=== PATIENT | male | born 1965 | race Caucasian/White ===

== ENCOUNTER 2016-09-13 23:27 | Emergency (ER) | payer OTHER ==
[~2016-09-13] VITALS: Ht 182.9 cm; Wt 74.4 kg
[~2016-09-13 23:27] MED LIST: AMLO5TAB2 PO; ASPI81TA9 PO; ATOR20TA PO; Aspirin PO; CHOL20004 PO; CYAN100072 PO; DULO60CA44 PO; HYDR-2678 PO; ICOS1CAP PO; INSU100I13 SQ; INSU100I15 SQ; INSU100I17 SQ; Isosorbide Mononitrate PO; LEVE500T6 PO; LISI-334 PO; LISI10TA2 PO; LOSA100T6 PO; LOSA1TAB17 PO; METF-620 PO; METO50TA10 PO; MIRT45TA3 PO; Metoprolol Tartrate PO; OMEP1CAP24 PO; PREG225C PO; TOPI100T90 PO; TOPI200T6 PO; Toujeo SQ; iron
--- NOTE | 2016-09-13 23:29 | PHYS DOC ---
Past Medical History Past Medical History: Diabetes-Type II, Hypertension, [place], Seizure Past Surgical History: No Surgical History Alcohol Use: None Drug Use: None Adult General Chief Complaint Chief Complaint: ALTERED MENTAL STATUS [facility] HPI Patient is a 50 year old male presenting to the emergency department for evaluation of altered mental status. Reportedly family was trying to arouse him for one hour straight and cannot get him to wake up so they called EMS. Patient has a history of seizures and says that he has been compliant with his medications. He is somewhat sleepy but he is awake and interactive and will answer all questions appropriately. He denies any pain recent medication changes fevers chills nausea vomiting or other systemic symptoms. Reportedly patient had a diabetic emergency and required admission to the ICU but EMS and his [id number] blood sugar was 230. Patient moves all extremities appropriately and is in no obvious distress with normal vital signs. Review of Systems Review of Systems Constitutional: Denies fever or chills [] Eyes: Denies change in visual acuity, redness, or eye pain [] HENT: Denies nasal congestion or sore throat [] Respiratory: Denies cough or shortness of breath [] Cardiovascular: No additional information not addressed in HPI [] GI: Denies abdominal pain, nausea, vomiting, bloody stools or diarrhea [] : Denies dysuria or hematuria [] Musculoskeletal: Denies back pain or joint pain [] Integument: Denies rash or skin lesions [] Neurologic: Denies headache, focal weakness or sensory changes [] Current Medications Current Medications Current Medications Medications (Trade) Dose Ordered Sig/Babak Start Time Stop Time Status Last Admin Dose Admin Amlodipine Besylate (Norvasc) 10 mg 1X ONCE 09/14/16 01:00 09/14/16 01:01 DC 09/14/16 00:41 10 MG Labetalol HCl 15 mg 15 mg 1X ONCE 09/14/16 01:00 09/14/16 01:01 DC 09/14/16 00:41 15 MG Levetiracetam/ Sodium Chloride (Keppra/Iv Sodium Chloride 0.9% 100ml) 105 ml @ 400 mls/hr 1X ONCE 09/14/16 01:00 09/14/16 01:15 DC 09/14/16 00:40 400 MLS/HR Sodium Chloride (Iv Sodium Chloride 0.9% 1000ml Bag) 1,000 ml @ 1,000 mls/hr 1X ONCE 09/14/16 00:00 09/14/16 00:59 DC 09/13/16 23:55 1,000 MLS/HR Allergies Allergies Allergies Coded Allergies Type Severity Reaction Last Updated Verified No Known Drug Allergies 01/23/14 No Physical Exam Physical Exam Constitutional: Well developed, well nourished, no acute distress, non-toxic appearance. [] HENT: Normocephalic, atraumatic, bilateral external ears normal, oropharynx moist, no oral exudates, nose normal. [] Eyes: PERRLA, EOMI, conjunctiva normal, no discharge. [] Neck: Normal range of motion, no tenderness, supple, no stridor. [] Cardiovascular:Heart rate regular rhythm, no murmur [] Lungs & Thorax: Bilateral breath sounds clear to auscultation [] Abdomen: Bowel sounds normal, soft, no tenderness, no masses, no pulsatile masses. [] Skin: Warm, dry, no erythema, no rash. [] Back: No tenderness, no CVA tenderness. [] Extremities: No tenderness, no cyanosis, no clubbing, ROM intact, no edema. [] Neurologic: Alert and oriented X 3, normal motor function, normal sensory function, no focal deficits noted. [] Current Patient Data Vital Signs Vital Signs Date Time Temp Pulse Resp B/P Pulse Ox O2 Delivery O2 Flow Rate FiO2 09/14/16 00:48 92 16 162/77 99 Room Air 09/13/16 23:33 97.4 97.4 Lab Values Laboratory Tests Test 09/13/16 23:32 White Blood Count 7.8x10^3/uL (4.0-11.0) Red Blood Count 3.23x10^6/uL (4.30-5.70) L Hemoglobin 9.3g/dL (13.0-17.5) L Hematocrit 27.9% (39.0-53.0) L Mean Corpuscular Volume 86fL (79-100) Mean Corpuscular Hemoglobin 29pg (25-35) Mean Corpuscular Hemoglobin Concent 34g/dL (31-37) Red Cell Distribution Width 15.6% (11.5-14.5) H Platelet Count 196x10^3/uL (140-400) Neutrophils (%) (Auto) 53% (31-73) Lymphocytes (%) (Auto) 32% (24-48) Monocytes (%) (Auto) 5% (0-9) Eosinophils (%) (Auto) 9% (0-3) H Basophils (%) (Auto) 1% (0-3) Neutrophils # (Auto) 4.2x10^3uL (1.8-7.7) Lymphocytes # (Auto) 2.5x10^3/uL (1.0-4.8) Monocytes # (Auto) 0.4x10^3/uL (0.0-1.1) Eosinophils # (Auto) 0.7x10^3/uL (0.0-0.7) Basophils # (Auto) 0.1x10^3/uL (0.0-0.2) Sodium Level 145mmol/L (136-145) Potassium Level 3.8mmol/L (3.5-5.1) Chloride Level 111mmol/L (98-107) H Carbon Dioxide Level 28mmol/L (21-32) Anion Gap 6 (6-14) Blood Urea Nitrogen 25mg/dL (8-26) Creatinine 1.5mg/dL (0.7-1.3) H Estimated GFR (Cockcroft-Gault) 49.7 BUN/Creatinine Ratio 17 (6-20) Glucose Level 177mg/dL (70-99) H Calcium Level 8.8mg/dL (8.5-10.1) Magnesium Level 1.9mg/dL (1.8-2.4) Total Bilirubin 0.2mg/dL (0.2-1.0) Aspartate Amino Transferase (AST) 13U/L (15-37) L Alanine Aminotransferase (ALT) 15U/L (16-63) L Alkaline Phosphatase 68U/L (46-116) Total Protein 6.6g/dL (6.4-8.2) Albumin 2.9g/dL (3.4-5.0) L Albumin/Globulin Ratio 0.8 (1.0-1.7) L Lipase 46U/L (73-393) L Salicylates Level 3.4mg/dL (2.8-20.0) Salicylate Last Dose Date Unknown Salicylate Last Dose Time Unknown Acetaminophen Level < 2mcg/ml (10-30) L Acetaminophen Last Dose Date Unknown Acetaminophen Last Dose Time Unknown Ethyl Alcohol Level < 10mg/dL (0-10) Laboratory Tests 09/13/16 23:32 Laboratory Tests 09/13/16 23:32 EKG EKG Normal sinus rhythm at 81 beats per minutes with normal axis and no obvious ST elevation or depression and normal T waves. Radiology/Procedures Radiology/Procedures PROCEDURE CT head without contrast. HISTORY Acute mental status change and hypertension TECHNIQUE Noncontrast axial cross sectional CT scanning of the head was performed. COMPARISON August 25, 2016 FINDINGS No acute intracranial hemorrhage or midline shift or mass-effect or hydrocephalus or extra-axial fluid collection is seen. No focal hypodense area is seen to indicate an acute infarct or edema radiographically. No skull fracture or pneumocephalus is seen. No opacification of the mastoid sinuses or the paranasal sinuses is seen. The maxillary sinuses are not completely seen in this study. IMPRESSION No acute intracranial abnormality is seen. Electronically signed by: Presley Simons MD (September 14, 2016 00:00:20) DICTATED and SIGNED BY: PRESLEY SIMONS III, MD DATE: 09/14/16 0001 Course & Med Decision Making Course & Med Decision Making CT is normal and labs are mostly unremarkable. He has baseline anemia and questionably some dehydration with increased creatinine and BUN. Family came and said that he was shaking prior to his confusion so I do think that he had a seizure and had a post ictal period. He says that he has not taken his evening meds to this point so I will give him a dose of IV Keppra in addition to his blood pressure medications and then if he continues to be normal will likely go home. Patient has repeat normal neurologic exam and says he feels fine and was to go home. He will be discharged with instructions to follow with his neurologist and come back to the ER sooner with any worsening pain confusion weakness or additional concerns. Patient and family aware and agreeable with plan for discharge and verbalized understanding of the need for short-term follow-up and strict ER return precautions discussed as above. Dragon Disclaimer Dragon Disclaimer This electronic medical record was generated, in whole or in part, using a voice recognition dictation system. Departure Departure Impression: Primary Impression: Seizure disorder Additional Impressions: Encephalopathy acute Anemia Disposition: 01 HOME, SELF-CARE Condition: GOOD Referrals: KESHAWN DE JESUS MD (PCP) Patient Instructions: Seizure Disorder, Child, Generalized Tonic-Clonic Additional Instructions: FOLLOW WITH YOUR NEUROLOGIST. KEEP TAKING YOUR MEDS PRESCRIBED. COME BACK TO THE ED SOONER WITH ANY NEW OR WORSENING SYMPTOMS. THANK YOU! Problem Qualifiers ALAN LANDIS DO September 13, 2016 23:29
[2016-09-13 23:50] LABS: BASO # 0.1 x10^3/uL (0.0-0.2); BASO % 1 % (0-3); EOS % 9 % (0-3); HEMATOCRIT 27.9 % (39.0-53.0); HEMOGLOBIN 9.3 g/dL (13.0-17.5); LYMPH # 2.5 x10^3/uL (1.0-4.8); LYMPH % 32 % (24-48); MEAN CORPUSCULAR HEMOGLOBIN 29 pg (25-35); MEAN CORPUSCULAR HGB CONC 34 g/dL (31-37); MEAN CORPUSCULAR VOLUME 86 fL (79-100); MONO % 5 % (0-9); NEUT % 53 % (31-73); PLATELET COUNT 196 x10^3/uL (140-400); RED BLOOD COUNT 3.23 x10^6/uL (4.30-5.70); RED CELL DISTRIBUTION WIDTH 15.6 % (11.5-14.5); WHITE BLOOD COUNT 7.8 x10^3/uL (4.0-11.0)
[2016-09-13 23:59] LABS: CALCIUM 8.8 mg/dL (8.5-10.1); CREATININE 1.5 mg/dL (0.7-1.3); GFR 49.7; POTASSIUM 3.8 mmol/L (3.5-5.1)
[2016-09-14] MEDS ORDERED: IV NORMAL SALINE 1000ML BAG 1,000 ML IV ONE
[2016-09-14 00:03] LABS: ETHANOL < 10 mg/dL (0-10)
--- NOTE | 2016-09-14 00:03 | RAD ---
PROCEDURE CT head without contrast. HISTORY Acute mental status change and hypertension TECHNIQUE Noncontrast axial cross sectional CT scanning of the head was performed. COMPARISON August 25, 2016 FINDINGS No acute intracranial hemorrhage or midline shift or mass-effect or hydrocephalus or extra-axial fluid collection is seen. No focal hypodense area is seen to indicate an acute infarct or edema radiographically. No skull fracture or pneumocephalus is seen. No opacification of the mastoid sinuses or the paranasal sinuses is seen. The maxillary sinuses are not completely seen in this study. IMPRESSION No acute intracranial abnormality is seen. Electronically signed by: Logan Simons MD (September 14, 2016 00:00:20)
[2016-09-14 00:05] LABS: ALBUMIN 2.9 g/dL (3.4-5.0); ALBUMIN/GLOBULIN RATIO 0.8 (1.0-1.7); MAGNESIUM 1.9 mg/dL (1.8-2.4); TOTAL BILIRUBIN 0.2 mg/dL (0.2-1.0); TOTAL PROTEIN 6.6 g/dL (6.4-8.2)
[2016-09-14 00:48] VITALS: BP 162/77
[2016-09-14] MEDS ORDERED: amLODIPine BESYLATE 5 MG TABLET PO ONE (01:00)
[2016-09-14] MEDS ORDERED: LABETALOL 20 MG/4 ML DISP.SYRIN. IVP ONE (01:00)
[2016-09-14] MEDS ORDERED: LEVETIRACETAM 500 MG in IV NORMAL SALINE 100ML 100 ML IV ONE (01:00)
--- NOTE | 2016-09-14 06:52 | EKG ---
[facility] [address] [place] [address] Test Date: 2016-09-13 Test Time: 23:34:07 Pat Name: FER ABAD Department: Room: Gender: M [employer]: : 1965 Requested By: ALAN LANDIS Order Number: [id number] Reading MD: Krystyna Almonte Measurements Intervals [place] Rate: 81 P: 45 ND: 180 QRS: 22 QRSD: 90 T: 90 QT: 384 QTc: 452 Interpretive Statements SINUS RHYTHM NORMAL ECG Electronically Signed On 09-14-2016 20:47:29 CDT by Krystyna Almonte
== END 2016-09-14 01:23 | disposition home or self-care (01) ==
LOC: ER 23:27
DX: G40.909 Epilepsy, unspecified, not intractable, without status epilepticus (principal); G93.40 Encephalopathy, unspecified; D64.9 Anemia, unspecified; R41.82 Altered mental status, unspecified; I10 Essential (primary) hypertension; E11.9 Type 2 diabetes mellitus without complications; I25.2 Old myocardial infarction
CPT/HCPCS: 36415; 70450; 80053; 80177; 80320; 83690; 83735; 85027; 93005; 96360; 96365; 96375; 99285; G6038; J1953; J3490; J7030; G0480; 80196

== ENCOUNTER → 2016-10-07 | Outpatient (CLI) | payer OTHER ==
[2016-09-14 00:48] VITALS: BP 162/77
[~2016-10-07] MED LIST changes: +ASPI-612 PO; -ASPI81TA9 PO; -CHOL20004 PO; +CHOL200074 PO; +TOPI100T8 PO; -TOPI100T90 PO
--- NOTE | 2016-10-07 12:12 | FMS ---
Indication 2 views of both shoulders were obtained. Note is made of a prior plain film examination of the right shoulder 03/30/2015. On the right there is some minimal degenerative change at the AC joint similar to the previous exam. No acute bony finding is seen. On the left there is, similarly, minimal degenerative change at the AC joint. No additional finding is apparent. IMPRESSION: Minimal degenerative change at the AC joints.
== END ==
LOC: FMSRAD 11:18
PROVIDERS: ATTEND Nurse Practitioner Occupational Health

== ENCOUNTER → 2017-04-25 | Outpatient (CLI) | payer OTHER ==
[~2017-04-25] MED LIST changes: -LOSA1TAB17 PO; +LOSA1TAB22 PO; -METO50TA10 PO; +METO50TA29 PO
[2017-04-25 13:18] LABS: BASO # 0.1 x10^3/uL (0.0-0.2); BASO % 1 % (0-3); EOS % 12 % (0-3); HEMATOCRIT 36.9 % (39.0-53.0); HEMOGLOBIN 11.6 g/dL (13.0-17.5); LYMPH # 2.6 x10^3/uL (1.0-4.8); LYMPH % 30 % (24-48); MEAN CORPUSCULAR HEMOGLOBIN 27 pg (25-35); MEAN CORPUSCULAR HGB CONC 32 g/dL (31-37); MEAN CORPUSCULAR VOLUME 87 fL (79-100); MONO % 6 % (0-9); NEUT % 51 % (31-73); PLATELET COUNT 165 x10^3/uL (140-400); RED BLOOD COUNT 4.23 x10^6/uL (4.30-5.70); RED CELL DISTRIBUTION WIDTH 16.4 % (11.5-14.5); WHITE BLOOD COUNT 8.7 x10^3/uL (4.0-11.0)
[2017-04-25 13:32] LABS: ALBUMIN 3.3 g/dL (3.4-5.0); ALBUMIN/GLOBULIN RATIO 0.8 (1.0-1.7); CALCIUM 8.9 mg/dL (8.5-10.1); GFR 35.5; POTASSIUM 3.4 mmol/L (3.5-5.1); TOTAL BILIRUBIN 0.3 mg/dL (0.2-1.0); TOTAL PROTEIN 7.3 g/dL (6.4-8.2)
[2017-04-25 13:35] LABS: BARBITURATES NEG (NEG); BENZODIAZEPINES NEG (NEG); CANNABINOIDS POS (NEG); COCAINE NEG (NEG); METHADONE NEG (NEG); OPIATES POS (NEG); PHENCYCLIDINE NEG (NEG)
== END | disposition home or self-care (01) ==
LOC: LAB 12:51
PROVIDERS: ATTEND Psychiatry & Neurology Neurology
DX: R56.9 Unspecified convulsions (principal)
CPT/HCPCS: 36415; 80053; 80177; 80307; 82550; 82607; 84443; 85025; G0479

== ENCOUNTER → 2017-05-04 | Outpatient (CLI) | payer OTHER ==
--- NOTE | 2017-05-04 12:58 | EEG ---
DATE OF SERVICE: 05/04/2017 EEG NUMBER: [id number]. OBJECTIVE: This is a 51-year-old male patient with history of seizure or seizure-like episodes. EEG was requested to evaluate seizure activity. METHODS: Twenty electrodes were applied according to the international 10-20 electrode placement system. EKG monitoring, hyperventilation, intermittent photic stimulation, monopolar and bipolar montages are routinely utilized. The record was obtained on a digital system with video monitoring. FINDINGS: 1. Background: The patient was recorded in the awake and drowsy states. No sleep state was recorded. The overall background amplitude is 5-15 microvolts. A posterior dominant rhythm of 8-9 Hz is observed. 2. Abnormalities: No specific epileptiform discharge or electrographic seizure is seen. No focal or diffuse slowing. 3. Activation: Hyperventilation was performed with good efforts and normal response. Intermittent photic stimulation was performed with photic driving. No specific epileptiform discharge or electrographic seizure induced. IMPRESSION: This EEG is a normal study for the awake and drowsy states. No sleep state was recorded. No focal, lateralizing, specific epileptiform discharge, or electrographic seizure is seen. However, a normal EEG does not rule out seizure. MING VILLAREAL MD DR: BAYRON/alma delia JOB#: [id number] / [id number] PADMAJA
== END | disposition home or self-care (01) ==
LOC: RT 08:04
PROVIDERS: ATTEND Psychiatry & Neurology Neurology
DX: R56.9 Unspecified convulsions (principal)
CPT/HCPCS: 95816

== ENCOUNTER → 2017-06-27 | Outpatient (CLI) | payer OTHER ==
[2017-06-27 12:52] LABS: BARBITURATES NEG (NEG); BENZODIAZEPINES NEG (NEG); CANNABINOIDS POS (NEG); COCAINE NEG (NEG); METHADONE NEG (NEG); OPIATES POS (NEG); PHENCYCLIDINE NEG (NEG)
[2017-06-27 12:56] LABS: AMPHETAMINE/METHAMPHETAMINE NEG (NEG); ETHANOL, URINE NEG (NEG)
[2017-06-27 13:19] LABS: CREATINE KINASE 123 U/L (39-308)
== END | disposition home or self-care (01) ==
LOC: LAB 12:18
DX: F12.90 Cannabis use, unspecified, uncomplicated (principal); Z79.899 Other long term (current) drug therapy
CPT/HCPCS: 36415; 80307; 82550

== ENCOUNTER → 2017-07-03 | Outpatient (CLI) | payer OTHER | END | disposition home or self-care (01) | LOC: SLPLAB 05:47 | DX: R56.9 Unspecified convulsions (principal) | CPT/HCPCS: 95951 ==

== ENCOUNTER → 2017-09-18 | Outpatient (CLI) | payer SELFPAY, OTHER ==
[2017-09-18 12:05] LABS: ALBUMIN 2.6 g/dL (3.4-5.0); ALBUMIN/GLOBULIN RATIO 0.7 (1.0-1.7); ALK PHOS 84 U/L (46-116); ALT (SGPT) 20 U/L (16-63); ANION GAP 8 (6-14); AST (SGOT) 18 U/L (15-37); BLOOD UREA NITROGEN 52 mg/dL (8-26); BUN/CREATININE RATIO 22 (6-20); CALCIUM 8.5 mg/dL (8.5-10.1); CARBON DIOXIDE 30 mmol/L (21-32); CHLORIDE 106 mmol/L (98-107); CREATININE 2.4 mg/dL (0.7-1.3); GFR 28.8; GLUCOSE 226 mg/dL (70-99); POTASSIUM 4.2 mmol/L (3.5-5.1); SODIUM 144 mmol/L (136-145); TOTAL BILIRUBIN 0.3 mg/dL (0.2-1.0); TOTAL PROTEIN 6.5 g/dL (6.4-8.2)
== END | disposition home or self-care (01) ==
LOC: LAB 10:52
DX: N17.9 Acute kidney failure, unspecified (principal)
CPT/HCPCS: 36415; 80053

== ENCOUNTER 2021-05-26 01:11 | Inpatient (IN) | payer MEDICARE ==
[2021-05-26] VITALS (7 sets, daily range): BP systolic 85–124; BP diastolic 46–66
[~2021-05-26] VITALS: Ht 177.8 cm; Wt 71.9 kg
[~2021-05-26 01:11] MED LIST changes: +AMLO-186 PO; -AMLO5TAB2 PO; +ASPI-482 PO; -ASPI-612 PO; +ASPI-886 PO; +ATOR10TA60 PO; +CHOL100013 PO; +CYAN-25 PO; -DULO60CA44 PO; +DULO60CA45 PO; +DULO60CA7 PO; +EZET10TA20 PO; +HYDR-2761 PO; +INSU100V13 SQ; +INSU3INS SQ; +LEVE500T56 PO; -LISI-334 PO; +LISI10TA16 PO; -LISI10TA2 PO; +LISI20TA18 PO; +LOSA100T14 PO; -LOSA100T6 PO; -METF-620 PO; +METF10007 PO; +METO-239 PO; +MIRT-8 PO; -MIRT45TA3 PO; +MIRT45TA58 PO; -OMEP1CAP24 PO; +OMEP1CAP32 PO; +OMEP40CA7 PO; +OXYC10TA46 PO; +PREG200C PO; +PROM25TA10 PO; +SILD20TA4 PO; +TRAZ-118 PO
[2021-05-26] MEDS ORDERED: PIP/TAZO PER PHARMACY MC PRN (01:30)
[2021-05-26] MEDS ORDERED: IV NORMAL SALINE 1000ML BAG 1,000 ML IV ONE (01:30)
--- NOTE | 2021-05-26 01:30 | PHYS DOC ---
Past Medical History Past Medical History: Depression, Diabetes-Type II, Heart Disease, Hypert ension, [place], Migraines, Seizure Past Medical History Chronic kidney disease Past Surgical History: No Surgical History, Coronary Bypass Surgery Past Surgical History Partial left foot amputation, dialysis fistula placement, port placement Smoking Status: Current Every Day Smoker Alcohol Use: None Drug Use: None Social History Social history limited due to patients altered mental status General Adult EDM: Chief Complaint: Altered mental status HPI: HPI: Mr. Cano is a 55 year old male brought in by EMS from a long term d/t altered mental status. [facility] states that the patient was altered, had a fever of 100.5 and BP of 87/45. History of present illness limited due to patients altered mental status Review of Systems: Review of Systems: Constitutional: complains of fever and chills Respiratory: reports shortness of breath, denies cough Cardiovascular: Denies chest pain or palpitations GI: complains of nausea, denies abdominal pain Integument: healing left foot stump, widespread erythema Review of systems limited due to patients altered mental status Heart Score: C/O Chest Pain: N/A Allergies: Allergies: Allergies Coded Allergies Type Severity Reaction Last Updated Verified No Known Drug Allergies 01/23/14 No Physical Exam: PE: Constitutional: patient appears fatigued, altered HENT: Normocephalic, bruise / abrasion over left eye Eyes:, conjunctiva pale, no discharge Neck: Normal range of motion, no tenderness Lungs & Thorax: No respiratory distress, equal chest rise and fall, CTAB Cardiac: HRRR, systolic murmur w/ no radiation Abdomen: Soft, no tenderness Skin: Warm, dry, diffuse erythema on lower legs Extremities: , UE ROM & strength intact, patient is non-weight bearing, healing left partial foot stump Neurologic: Alert and oriented X 3 confused, GCS 14 Psychologic: Affect normal, judgment normal EKG: EKG: @0543 NSR at 83bpm, NO ST elevation, QRS 98ms, QT/QTc 434/511ms Radiology/Procedures: Radiology/Procedures: CT HEAD AND C-SPINE WO History: Reason: altered mental status / Spl. Instructions: / History: . Pain Comparison: September 13, 2016 Technique: Noncontrast CT imaging was performed of the head and cervical spine. Coronal and sagittal reconstructions were performed. Exposure: One or more of the following individualized dose reduction techniques were utilized for this examination: 1. Automated exposure control 2. Adjustment of the mA and/or kV according to patient size 3. Use of iterative reconstruction technique. Findings: Head CT: No intracranial hemorrhage. No mass effect. No hydrocephalus. Left posterior parietal encephalomalacia likely related to prior infarct. Chronic right basal ganglia lacunar infarct. Ex vacuo dilatation of the right lateral ventricle. Mild foci of decreased attenuation within the hemispheric white matter, most often due to chronic microvascular ischemia. Imaged orbits are unremarkable. Imaged paranasal sinuses and mastoid air cells are clear. No acute calvarial fracture. Cervical spine CT: Normal vertebral body height and alignment. No fracture. Moderate C5-C6 degenerative disc changes. Mild apical septal thickening. Secretions within the upper trachea. Multifocal carious dentition and periodontal disease. Impression: Head CT: 1. No acute intracranial abnormality. 2. Chronic right basal ganglia and left parietal infarcts. Cervical spine CT: 1. No acute fracture or subluxation of the cervical spine. 2. Multilevel cervical spondylosis most prominent C5-C6. 3. Biapical septal thickening, may indicate mild pulmonary edema. Electronically signed by: Luis Manuel Flores DO (05/26/2021 2:44 AM) [employer] [] PROCEDURE: FOOT LEFT 3V XR FOOT_LEFT 3 VIEWS History: Reason: fever, toe amputation, eval for osteomyelitis / Spl. Instructions: / History: Technique: 3 views left foot Comparison: None. Findings: Prior left forefoot amputation to the level of the metatarsals. Irregularity of the skin overlying the amputation. Possible small subcutaneous gas within this region along the plantar aspect on lateral view. No radiographic evidence of osteomyelitis. No dislocation. Plantar calcaneal spur. Impression: 1. Prior left forefoot amputation. 2. Irregularity of the skin overlying the amputation with potential payne bcutaneous gas. Recommend correlation for ulcer or necrotizing infection. Electronically signed by: Luis Manuel Flores DO (05/26/2021 2:47 AM) [email or web address] PROCEDURE: CHEST AP ONLY XR CHEST 1V History: Reason: fever, altered mental status / Spl. Instructions: / History: Comparison: September 13, 2017 Findings: Moderate diffuse interstitial thickening with ill-defined opacities. No pleural effusion. Enlarged cardiac size. Right IJ central line with tip projecting over the right atrium. Prior median sternotomy. No pneumothorax. Impression: 1. Moderate diffuse interstitial thickening with ill-defined opacities, may represent pulmonary edema. Electronically signed by: Luis Manuel Flores DO (05/26/2021 2:45 AM) [facility] Course & Med Decision Making: Course & Med Decision Making Pertinent Labs and Imaging studies reviewed. (See chart for details) Mr. Cano was brought in by EMS from the long term due to his altered mental status alongside fever and shortness of breath. Fluids and antibiotics started, wound care consulted, admit to medicine. Patient requiring admission for further evaluation and treatment. Discussed with Dr. Fabian (hospitalist) who is in agreement with admission. Discussed findings and plan with patient, who acknowledges understanding and agreement. COVID-19 CRITERIA: The patient was evaluated during the global COVID-19 pandemic, and that diagnosis was suspected/considered upon their initial presentation. Their evaluation, treatment and testing was consistent with current guidelines for patients who present with complaints or symptoms that may be related to COVID-19. Dragon Disclaimer: Dragon Disclaimer: This electronic medical record was generated, in whole or in part, using a voice recognition dictation system. Departure Departure Impression: Primary Impression: Altered mental status Qualified Codes: R41.82 - Altered mental status, unspecified Additional Impressions: Severe anemia ESRD (end stage renal disease) on dialysis Draining postoperative wound Qualified Codes: T81.89XA - Other complications of procedures, not elsewhere classified, initial encounter COVID-19 Disposition: ADMITTED INPATIENT Admitting Physician: Madi. Doe Condition: GUARDED Referrals: KAHLIL WADE MD (PCP) COVID-19 Assessment: COVID-19 Patient Risks: Age 65 or older: No Sign of co-morbidity: Yes Exp to person + for COVID: No Exp to PUI: No Travel from affected area: No Lower respiratory symptoms: No Fever: No Other: Yes PPE Use: Full PPE with N95 mask or PAPR: Yes VIJAYA BRIAN DO May 26, 2021 01:30
[2021-05-26 01:40] LABS: BASO % 0 % (0-3); EOS # 0.1 x10^3/uL (0.0-0.7); EOS % 2 % (0-3); LYMPH # 1.7 x10^3/uL (1.0-4.8); LYMPH % 23 % (24-48); MEAN CORPUSCULAR HEMOGLOBIN 27 pg (25-35); MEAN CORPUSCULAR HGB CONC 32 g/dL (31-37); MEAN CORPUSCULAR VOLUME 82 fL (79-100); MONO # 1.3 x10^3/uL (0.0-1.1); MONO % 18 % (0-9); NEUT # 4.2 x10^3/uL (1.8-7.7); NEUT % 57 % (31-73); PLATELET COUNT 107 x10^3/uL (140-400); RED BLOOD COUNT 2.26 x10^6/uL (4.30-5.70); RED CELL DISTRIBUTION WIDTH 24.4 % (11.5-14.5); WHITE BLOOD COUNT 7.3 x10^3/uL (4.0-11.0)
[2021-05-26 01:44] LABS: HEMATOCRIT 18.6 % (39.0-53.0)
[2021-05-26 01:48] LABS: PROTHROMBIN TIME PATIENT 15.6 SEC (11.7-14.0)
[2021-05-26 01:53] LABS: CALCIUM 8.1 mg/dL (8.5-10.1); CREATININE 5.8 mg/dL (0.7-1.3); GFR 10.2; POTASSIUM 3.3 mmol/L (3.5-5.1)
[2021-05-26 01:58] LABS: ALBUMIN 2.3 g/dL (3.4-5.0); ALBUMIN/GLOBULIN RATIO 0.5 (1.0-1.7); C-REACTIVE PROTEIN 149.6 mg/L (0-3.3); MAGNESIUM 1.9 mg/dL (1.8-2.4); TOTAL BILIRUBIN 0.8 mg/dL (0.2-1.0); TOTAL PROTEIN 7.1 g/dL (6.4-8.2)
[2021-05-26 02:10] LABS: % BASOS 1 % (0-3); % EOS 2 % (0-5); % LYMPHS 26 % (24-48); % MONOS 9 % (0-10); % SEGS 62 % (35-66); ANISOCYTOSIS MOD; HYPOCHROMIA SLIGHT; NUCLEATED RBC 2; PLT ESTIMATE DECREASED (ADEQUATE); POLYCHROMASIA SLIGHT
[2021-05-26 02:11] LABS: HELMET CELLS OCC; OVALOCYTES OCC; POIKILOCYTOSIS SLIGHT
[2021-05-26] MEDS ORDERED: PIPERACILLIN/TAZOBACTAM 3.375 GM in IV NORMAL SALINE 50ML 50 ML IV ONE (02:15)
--- NOTE | 2021-05-26 02:47 | RAD ---
CT HEAD AND C-SPINE WO History: Reason: altered mental status / Spl. Instructions: / History: . Pain Comparison: September 13, 2016 Technique: Noncontrast CT imaging was performed of the head and cervical spine. Coronal and sagittal reconstructions were performed. Exposure: One or more of the following individualized dose reduction techniques were utilized for thi s examination: 1. Automated exposure control 2. Adjustment of the mA and/or kV according to patient size 3. Use of iterative reconstruction technique. Findings: Head CT: No intracranial hemorrhage. No mass effect. No hydrocephalus. Left posterior parietal encephalomalacia likely related to prior infarct. Chronic right basal ganglia lacunar infarct. Ex vacuo dilatation of the right lateral ventricle. Mild foci of decreased attenuation within the hemispheric white matter, most often due to chronic cheyanne rovascular ischemia. Imaged orbits are unremarkable. Imaged paranasal sinuses and mastoid air cells are clear. No acute ca lvarial fracture. Cervical spine CT: Normal vertebral body height and alignment. No fracture. Moderate C5-C6 degenerative disc changes. Mild apical septal thickening. Secretions within the upper trachea. Multifocal carious dentition and periodontal disease. Impression: Head CT: 1. No acute intracranial abnormality. 2. Chronic right basal ganglia and left parietal infarcts. Cervical spine CT: 1. No acute fracture or subluxation of the cervical spine. 2. Multilevel cervical spondylosis most prominent C5-C6. 3. Biapical septal thickening, may indicate mild pulmonary edema. Electronically signed by: Luis Manuel Flores DO (05/26/2021 2:44 AM) [facility]
--- NOTE | 2021-05-26 02:48 | RAD ---
XR CHEST 1V History: Reason: fever, altered mental status / Spl. Instructions: / History: Comparison: September 13, 2017 Findings: Moderate diffuse interstitial thickening with ill-defined opacities. No pleural effusion. Enlarged ca rdiac size. Right IJ central line with tip projecting over the right atrium. Prior median sternotomy. No pneumothorax. Impression: 1. Moderate diffuse interstitial thickening with ill-defined opacities, may represent pulmonary malvin a. Electronically signed by: Luis Manuel Flores DO (05/26/2021 2:45 AM) [facility]
--- NOTE | 2021-05-26 02:50 | RAD ---
XR FOOT_LEFT 3 VIEWS History: Reason: fever, toe amputation, eval for osteomyelitis / Spl. Instructions: / History: Technique: 3 views left foot Comparison: None. Findings: Prior left forefoot amputation to the level of the metatarsals. Irregularity of the skin overlying th e amputation. Possible small subcutaneous gas within this region along the plantar aspect on lateral view. No radiographic evidence of osteomyelitis. No dislocation. Plantar calcaneal spur. Impression: 1. Prior left forefoot amputation. 2. Irregularity of the skin overlying the amputation with potential subcutaneous gas. Recommend jaden elation for ulcer or necrotizing infection. Electronically signed by: Luis Manuel Flores DO (05/26/2021 2:47 AM) [facility]
[2021-05-26] MEDS ORDERED: DEXTROSE 50% 25 GM / 50ML DISP.SYRIN. IV PRN ×2 (03:30→12:45)
[2021-05-26] MEDS ORDERED: IV NORMAL SALINE 500ML BAG 500 ML IV ONE (03:30)
[2021-05-26] MEDS ORDERED: ONDANSETRON PF 4 MG/2 ML VIAL. IVP PRN (03:30)
[2021-05-26] MEDS ORDERED: ACETAMINOPHEN 325 MG TABLET. PO PRN (03:30)
[2021-05-26] MEDS ORDERED: VANCOMYCIN 1.75 GM in IV NORMAL SALINE 500ML BAG 500 ML IV ONE (06:00)
[2021-05-26] MEDS: VANCOMYCIN PER PHARMACY MC PRN (06:01)
--- NOTE | 2021-05-26 06:20 | NUR ---
Pharmacy Vancomycin Dosing Note S:Consulted to monitor and dose vancomycin started 05/26/21. O:FER CHAUDHARY is a 55 year old M with Sepsis . Height: 5 feet, 10 inches Weight: 90.1 kg [place] Body Weight: 73.00 Adjusted Body Weight: 79.84 Dosing Weight: Other Antibiotics: ZOSYN 05/26 - LABS: Last BUN: 36 Last Creatinine: 5.8 Creatinine Clearance: ESRD HD mL/min Last WBC: 7.3 Last Procalcitonin: Tmax (past 24 hours): 99.6 Microbiology: I/O: Drug Levels: Last level: on at Last dose given 05/26/21 at 0547 Vancomycin Dosing: Loading Dose: x1 Dosing Weight: Target Trough: 15-20 A: Based on: HD STATUS, P: 1. GIVE Vancomycin 1750 mg IV One Time 2. Follow up RANDOM LEVEL WHEN HD SCHEDULE DETERMINED. 3. Pharmacy will continue to monitor, follow and adjust therapy as needed. GONZALES [facility], 05/26/21 [id number]
[2021-05-26] MEDS ORDERED: INSULIN LISPRO 300 UNITS/3 ML VIAL. SQ SCH (08:00)
--- NOTE | 2021-05-26 08:10 | NUR ---
Awake resting in bed. No c/o at this time. Amputated toes on left fabien. Noted some drainage and stitches. Has pulse bilaterally. Poor skin- has scabs arms, legs and fingers. Not well kept. Assessment completed. Will get history from sister. Discussed plan of care and verbalized understanding.
[2021-05-26] MEDS: PIPERACILLIN/TAZOBACTAM 2.25 GM in IV NORMAL SALINE 50ML 50 ML IV SCH ×3 (09:08→21:40)
--- NOTE | 2021-05-26 09:43 | NUR ---
SW following. Discussed with RN, pt from home with family, 2L, renal diet, COVID-19 positive. Ortho and Nephrology following. Pt's hgn is 6. Med Assist following for self pay status. SW will continue to follow.
[2021-05-26] MEDS: SODIUM HYPOCHLORITE 0.125% 473 ML BOTTLE. TP SCH ×2 (11:00→21:38)
--- NOTE | 2021-05-26 12:41 | PDOC2 ---
CONSULT Date of Consult Date of Consult DATE: 05/26/21 TIME: 12:18 Reason for Consult Reason for Consult: Left foot ulcer Identification/Chief Complaint Chief Complaint Left foot ulcer Source Source: Caregiver, Chart review History of Present Illness Reason for Visit: Patient with a history of diabetes, end-stage renal disease, 3x/ week HD who was consulted for a left foot ulcer. At bedside, patient was somnolent. The history was gathered from chart review, and family [Anita Mckinley]. Patient had a 3 strokes, multiple coronary bypasses last year and has been in and out of the SNF. 2 months ago, patient developed a left big toe ulcer without any inciting events. He underwent big toe amputation without adequate source control and then a TMA, two weeks ago, at [facility]. He was then discharged to SNF without any splint. This suspected patient was walking or weightbearing on the foot. Family was uncertain about the antibiotic management. Socially, patient lives at home with an elderly parent. On May 25, patient was admitted for altered mental status. He was also found with a worsening ulcer to the left TMA stump. Labs were remarkable for anemia along with hypotension, without leukocytosis. X-ray of the left foot remarked a full-thickness wound with communicating air. Patient was then placed on empiric vancomycin and Zosyn therapy. Past Medical History Cardiovascular: CHF, HTN Pulmonary: COPD GI: Constipation Rheumatologic: Other Endocrine: Diabetes Past Surgical History Past Surgical History: No pertinent history Family History Family History: Cancer, Heart Disease Social History ALCOHOL: none Drugs: None Lives: with Family Current Problem List Problem List Problems Medical Problems: (1) Altered mental status Status: Acute (2) COVID-19 Status: Acute (3) Draining postoperative wound Status: Acute (4) ESRD (end stage renal disease) on dialysis Status: Acute (5) Severe anemia Status: Acute Current Medications Current Medications Current Medications Sodium Chloride 1,000 ml @ 1,000 mls/hr 1X ONCE IV ; Start 05/26/21 at 01:30; Stop 05/26/21 at 02:29; Status DC Piperacillin Sod/ Tazobactam Sod (Zosyn Per Pharmacy) 1 each PRN DAILY PRN MC SEE COMMENTS; Start 05/26/21 at 01:30 Piperacillin Sod/ Tazobactam Sod 3.375 gm/Sodium Chloride 50 ml @ 100 mls/hr 1X ONCE IV Last administered on 05/26/21at 03:25; Start 05/26/21 at 02:15; Stop 05/26/21 at 02:44; Status DC Vancomycin HCl (Vanco Per Pharmacy) 1 each PRN DAILY PRN MC SEE COMMENTS Last administered on 05/26/21at 06:01; Start 05/26/21 at 03:15 Sodium Chloride 500 ml @ 500 mls/hr 1X ONCE IV Last administered on 05/26/21at 03:25; Start 05/26/21 at 03:30; Stop 05/26/21 at 04:29; Status DC Ondansetron HCl (Zofran) 4 mg PRN Q8HRS PRN IVP NAUSEA/VOMITING; Start 05/26/21 at 03:30; Stop 05/27/21 at 03:29 Acetaminophen (Tylenol) 650 mg PRN Q4HRS PRN PO FEVER > 100.3'F; Start 05/26/21 at 03:30; Stop 05/27/21 at 03:29 Insulin Human Lispro (HumaLOG) 0-5 UNITS TIDWMEALS SQ Last administered on 05/26/21at 09:09; Start 05/26/21 at 08:00 Dextrose (Dextrose 50%-Water Syringe) 12.5 gm PRN Q15MIN PRN IV SEE COMMENTS; Start 05/26/21 at 03:30 Vancomycin HCl 1.75 gm/Sodium Chloride 500 ml @ 250 mls/hr 1X ONCE IV Last administered on 05/26/21at 05:47; Start 05/26/21 at 06:00; Stop 05/26/21 at 0 7:59; Status DC Piperacillin Sod/ Tazobactam Sod 2.25 gm/Sodium Chloride 50 ml @ 100 mls/hr Q8HRS IV Last administered on 05/26/21at 09:08; Start 05/26/21 at 08:00 Sodium Hypochlorite (Dakin'S 1/4 Strength) 1 lópez BID TP ; Start 05/26/21 at 11:00 Active Scripts Active Metoprolol Succinate 50 Mg Tab.er.24h 50 Mg PO DAILY 30 Days Levetiracetam 500 Mg Tablet 500 Mg PO BID 30 Days Reported Trazodone Hcl 50 Mg Tablet 1 Tab PO QHS Xultophy 100 Unit-3.6 mg/ml (Insulin Degludec/Liraglutide) 3 Ml Insuln.pen 24 Ml SQ HS Vitamin D (Cholecalciferol (Vitamin D3)) 1,000 Unit Capsule 1 Cap PO DAILY Atorvastatin Calcium 10 Mg Tablet 10 Mg PO DAILY Sildenafil (Sildenafil Citrate) 20 Mg Tablet 20 Mg PO TID Zetia (Ezetimibe) 10 Mg Tablet 10 Mg PO DAILY Omeprazole 40 Mg Capsule.dr 40 Mg PO DAILY Topiramate 100 Mg Tablet 100 Mg PO BID Promethazine Hcl 25 Mg Tablet 25 Mg PO Q6H PRN B-12 (Cyanocobalamin (Vitamin B-12)) 1,000 Mcg Tablet 1,000 Mcg PO DAILY Vascepa (Icosapent Ethyl) 1 Gm Capsule 2 Cap PO BID Aspirin Ec (Aspirin) 81 Mg Tablet.dr 81 Mg PO DAILY Duloxetine Hcl 60 Mg Capsule.dr 60 Mg PO HS Lyrica (Pregabalin) 225 Mg Capsule 225 Mg PO BID Losartan-Hctz 100-25 Mg Tab (Losartan/Hydrochlorothiazide) 1 Each Tablet 25 Mg P O DAILY Mirtazapine 45 Mg Tablet 45 Mg PO HS Amlodipine Besylate 5 Mg Tablet 5 Mg PO DAILY Allergies Allergies: Coded Allergies: No Known Drug Allergies (Unverified , 01/23/14) ROS Review of System CONSTITUTIONAL: No fever. No chills. No dizziness. No weakness. CARDIOVASCULAR: No chest pain. No palpitations. No lower extremity edema. RESPIRATORY: No shortness of breath, cough, pain with respiration. No hemoptysis. No dyspnea. GASTROINTESTINAL: Normal appetite. No nausea, vomiting, diarrhea. GENITOURINARY: No frequency, urgency, nocturia. No hematuria or dysuria. MUSCULOSKELETAL: No arthralgias or myalgias. INTEGUMENTARY: Refer to HPI NEUROLOGIC: No numbness or tingling of the extremities. No weakness. PSYCHIATRIC: No confusion. ENDOCRINE: No fatigue. No weakness. HEMATOLOGICAL: No bleeding. No petechiae. No bruising. ALLERGIES: No asthma. No urticaria Physical Exam Physical Exam General: Somnolent without apparent distress Dermatology: -S/p left TMA. There is full dehiscence to the entire surgical stump. The periwound is necrotic, and the wound base is fibrotic, probe to bone with minimal plantar flap undermining. There is minimal purulent drainage but negative for bleeding, fluctuance or proximal streaking. There is a stable eschar measures 5 x 6 cm at the anterior dorsal ankle. Otherwise, there is no exposed tendon underneath. Vascular: -Foot is warm to touch -DP and PT are palpable Neurology: -Light touch sensation diminished to the proximal ankle Musculoskeletal: -Not significant for equina varus deformity -S/p proximal TMA -Calf is soft and nontender -Passive ankle range of motion was smooth without crepitus or pain -Strength was deferred due to the mental status Vitals VITALS Vital Signs Date Time Temp Pulse Resp B/P (MAP) Pulse Ox O2 Delivery O2 Flow Rate FiO2 05/26/21 12:11 97.8 80 18 85/58 (67) 100 Nasal Cannula 2.0 97.8 Labs Labs Laboratory Tests Test 05/26/21 01:30 05/26/21 06:00 05/26/21 08:16 05/26/21 11:41 White Blood Count 7.3 x10^3/uL (4.0-11.0) Red Blood Count 2.26 x10^6/uL (4.30-5.70) Hemoglobin 6.0 g/dL (13.0-17.5) Hematocrit 18.6 % (39.0-53.0) Mean Corpuscular Volume 82 fL (79-100) Mean Corpuscular Hemoglobin 27 pg (25-35) Mean Corpuscular Hemoglobin Concent 32 g/dL (31-37) Red Cell Distribution Width 24.4 % (11.5-14.5) Platelet Count 107 x10^3/uL (140-400) Neutrophils (%) (Auto) 57 % (31-73) Lymphocytes (%) (Auto) 23 % (24-48) Monocytes (%) (Auto) 18 % (0-9) Eosinophils (%) (Auto) 2 % (0-3) Basophils (%) (Auto) 0 % (0-3) Neutrophils # (Auto) 4.2 x10^3/uL (1.8-7.7) Lymphocytes # (Auto) 1.7 x10^3/uL (1.0-4.8) Monocytes # (Auto) 1.3 x10^3/uL (0.0-1.1) Eosinophils # (Auto) 0.1 x10^3/uL (0.0-0.7) Basophils # (Auto) 0.0 x10^3/uL (0.0-0.2) Segmented Neutrophils % 62 % (35-66) Lymphocytes % 26 % (24-48) Monocytes % 9 % (0-10) Eosinophils % 2 % (0-5) Basophils % 1 % (0-3) Nucleated Red Blood Cells 2 Platelet Estimate Decreased (ADEQUATE) Polychromasia Slight Hypochromasia Slight Poikilocytosis Slight Anisocytosis Mod Ovalocytes Occ Helmet Cells Occ Erythrocyte Sedimentation Rate 54 (0-15) Prothrombin Time 15.6 SEC (11.7-14.0) Prothromb Time International Ratio 1.2 (0.8-1.1) Activated Partial Thromboplast Time 42 SEC (24-38) Sodium Level 140 mmol/L (136-145) Potassium Level 3.3 mmol/L (3.5-5.1) Chloride Level 100 mmol/L (98-107) Carbon Dioxide Level 28 mmol/L (21-32) Anion Gap 12 (6-14) Blood Urea Nitrogen 36 mg/dL (8-26) Creatinine 5.8 mg/dL (0.7-1.3) Estimated GFR (Cockcroft-Gault) 10.2 BUN/Creatinine Ratio 6 (6-20) Glucose Level 197 mg/dL (70-99) Lactic Acid Level 1.5 mmol/L (0.4-2.0) Calcium Level 8.1 mg/dL (8.5-10.1) Magnesium Level 1.9 mg/dL (1.8-2.4) Total Bilirubin 0.8 mg/dL (0.2-1.0) Aspartate Amino Transf (AST/SGOT) 21 U/L (15-37) Alanine Aminotransferase (ALT/SGPT) 12 U/L (16-63) Alkaline Phosphatase 99 U/L (46-116) C-Reactive Protein, Quantitative 149.6 mg/L (0-3.3) Total Protein 7.1 g/dL (6.4-8.2) Albumin 2.3 g/dL (3.4-5.0) Albumin/Globulin Ratio 0.5 (1.0-1.7) SARS-CoV-2 Antigen (Rapid) Positive (NEGATIVE) Glucose (Fingerstick) 158 mg/dL (70-99) 139 mg/dL (70-99) Laboratory Tests Test 05/26/21 01:30 05/26/21 06:00 05/26/21 08:16 05/26/21 11:41 White Blood Count 7.3 x10^3/uL (4.0-11.0) Red Blood Count 2.26 x10^6/uL (4.30-5.70) Hemoglobin 6.0 g/dL (13.0-17.5) Hematocrit 18.6 % (39.0-53.0) Mean Corpuscular Volume 82 fL (79-100) Mean Corpuscular Hemoglobin 27 pg (25-35) Mean Corpuscular Hemoglobin Concent 32 g/dL (31-37) Red Cell Distribution Width 24.4 % (11.5-14.5) Platelet Count 107 x10^3/uL (140-400) Neutrophils (%) (Auto) 57 % (31-73) Lymphocytes (%) (Auto) 23 % (24-48) Monocytes (%) (Auto) 18 % (0-9) Eosinophils (%) (Auto) 2 % (0-3) Basophils (%) (Auto) 0 % (0-3) Neutrophils # (Auto) 4.2 x10^3/uL (1.8-7.7) Lymphocytes # (Auto) 1.7 x10^3/uL (1.0-4.8) Monocytes # (Auto) 1.3 x10^3/uL (0.0-1.1) Eosinophils # (Auto) 0.1 x10^3/uL (0.0-0.7) Basophils # (Auto) 0.0 x10^3/uL (0.0-0.2) Segmented Neutrophils % 62 % (35-66) Lymphocytes % 26 % (24-48) Monocytes % 9 % (0-10) Eosinophils % 2 % (0-5) Basophils % 1 % (0-3) Nucleated Red Blood Cells 2 Platelet Estimate Decreased (ADEQUATE) Polychromasia Slight Hypochromasia Slight Poikilocytosis Slight Anisocytosis Mod Ovalocytes Occ Helmet Cells Occ Erythrocyte Sedimentation Rate 54 (0-15) Prothrombin Time 15.6 SEC (11.7-14.0) Prothromb Time International Ratio 1.2 (0.8-1.1) Activated Partial Thromboplast Time 42 SEC (24-38) Sodium Level 140 mmol/L (136-145) Potassium Level 3.3 mmol/L (3.5-5.1) Chloride Level 100 mmol/L (98-107) Carbon Dioxide Level 28 mmol/L (21-32) Anion Gap 12 (6-14) Blood Urea Nitrogen 36 mg/dL (8-26) Creatinine 5.8 mg/dL (0.7-1.3) Estimated GFR (Cockcroft-Gault) 10.2 BUN/Creatinine Ratio 6 (6-20) Glucose Level 197 mg/dL (70-99) Lactic Acid Level 1.5 mmol/L (0.4-2.0) Calcium Level 8.1 mg/dL (8.5-10.1) Magnesium Level 1.9 mg/dL (1.8-2.4) Total Bilirubin 0.8 mg/dL (0.2-1.0) Aspartate Amino Transf (AST/SGOT) 21 U/L (15-37) Alanine Aminotransferase (ALT/SGPT) 12 U/L (16-63) Alkaline Phosphatase 99 U/L (46-116) C-Reactive Protein, Quantitative 149.6 mg/L (0-3.3) Total Protein 7.1 g/dL (6.4-8.2) Albumin 2.3 g/dL (3.4-5.0) Albumin/Globulin Ratio 0.5 (1.0-1.7) SARS-CoV-2 Antigen (Rapid) Positive (NEGATIVE) Glucose (Fingerstick) 158 mg/dL (70-99) 139 mg/dL (70-99) Assessment/Plan Assessment/Plan 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 In 2020 -Clinically, the left TMA stump has fully dehisced, probe to bone. X-ray remarked communicating air to the distal stump with post-op osseous changes versus osteomyelitis. Because patient just underwent TMA for source control, and now the bone is exposed, the index of suspicion for residual/new osteomyelitis is high. -Although the DP and PT are palpable at bedside, the newfound eschar to the anterior dorsal ankle; failed dorsal/plantar skin flaps are concerning for small vessel disease, inadequate source control and incompliance during postoperative recovery. -I discussed with family, Ms. Mckinley on the phone that a revised TMA/short distal stump may not be functional and patient will be always at risk for recur rent ulcers. The skin flap at the foot level may not survive. Alternatively, a BKA is a viable and reasonable option. It is functional and patient can be fitted for prostheses. 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 I will talk with patient tomorrow once he is more lucid and discuss options and prognosis. -The wound was dressed with Betadine wet-to-dry. I ordered Dakin, Dakin wet-to-dry dressing twice daily by floor RN -Activity: Nonweightbearing to left lower extremity, PT eval and treat -Continue with empiric IV antibiotics, Vanco and Zosyn -Pending bedside deep wound culture -Medical optimization per internal medicine -I highly recommend a vascular consult for possible BKA especially given the extensive coronary/arterial disease. JULIEN COVARRUBIAS DPM May 26, 2021 12:41
--- NOTE | 2021-05-26 13:18 | HP ---
DATE OF SERVICE: 05/26/2021 ADMIT DATE: 05/26/2021 HISTORY OF PRESENT ILLNESS: The patient is a 55-year-old male patient, resident at [facility], who was noted by nursing staff to have altered mental status. He also apparently has fever up to 100.5 and was hypotensive with a blood pressure of 87/45. He was sent to the Emergency Room of the [facility], where he was extensively investigated and has had lab work including CBC and CMP. His white cell count was normal at 7.3, hemoglobin was low and hematocrit was 6 and 18. His platelets were also low at 107 with normal manual differential. His sedimentation rate was 64 mm per hour. His chemistry is obviously variable as hemodialysis dependent. His blood sugar was 197. His C-reactive protein was high at 149. His prothrombin time, INR and APTT was slightly elevated. His [id number] antigens rapid testing was positive and did have some imaging studies. His chest x-ray showed moderate diffuse interstitial thickening with ill-defined opacities, may represent pulmonary edema. His foot x-ray showed prior left foot amputation, irregularity of the skin overlying the amputation with potential subcutaneous gas. Recommending correlation for ulcer and necrotizing infection. CT scan of the head and cervical spine showed no acute intracranial abnormality, chronic right basal ganglia and left parietal infarct. CT scan of the cervical spine showed no acute fracture or subluxation of cervical spine, multilevel cervical spondylosis, most prominent at C5-C6 and biapical septal thickening may indicate mild pulmonary edema. The patient was admitted with: 1. Altered mental status. 2. Severe anemia. 3. End-stage renal disease, on hemodialysis and infected left foot wound as well as COVID-19 infection. He was started on IV antibiotic. We will type and cross and will transfuse him 1 unit of blood on hemodialysis. He was also started on IV Zosyn and vancomycin after obtaining the appropriate blood as well as anaerobic, aerobic culture from the wound. The patient is very lethargic, but arousable. PAST MEDICAL HISTORY: Significant for: 1. Insulin-dependent type 2 diabetes mellitus. 2. Atrial fibrillation 3. Coronary artery disease, status post CABG. 4. End-stage renal disease, on hemodialysis. 5. Ischemic cardiomyopathy. 6. Hypertension. 7. Cerebrovascular accident. 8. Peripheral neuropathy. 9. Chronic subdural hematoma. 10. Seizure disorder. PAST SURGICAL HISTORY: Significant for left carotid artery endarterectomy, coronary artery disease status post coronary artery bypass graft surgery, left upper extremity arteriovenous graft creation and removal, incision and drainage of the left foot and esophagogastroduodenoscopy. ALLERGIES: He has no known drug allergies except STATINS. MEDICATIONS: He is currently on the following medication: He is on promethazine 25 mg every 6 hours as needed, Zetia 10 mg once a day, atorvastatin calcium 10 mg at bedtime, Vascepa ____ 2 capsules twice a day, sildenafil 20 mg 3 times a day, metoprolol succinate 50 mg daily, amlodipine besylate 5 mg daily, losartan/hydrochlorothiazide 100/25 mg p.o. daily, aspirin 81 mg once a day, levetiracetam 500 mg twice a day, pregabalin 100 mg twice a day, duloxetine 60 mg at bedtime, mirtazapine 45 mg at bedtime, trazodone 50 mg at bedtime, omeprazole 40 mg daily and cyanocobalamin 1000 mcg once a day, cholecalciferol, vitamin D 1 capsule daily. FAMILY HISTORY: Father at age of 55 secondary to cerebrovascular accident. Mother is still alive. He has 2 sisters, both alive and have HIV. SOCIAL HISTORY: He used to live with his mother and sister. He has a son and daughter. He continues to smoke, but does not drink alcohol or use any recreational drugs. 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 He is . REVIEW OF SYSTEMS: As per history of present illness. PHYSICAL EXAMINATION: GENERAL: On arrival to the Emergency Room, he was pale, not jaundiced, cyanosed, no lymphadenopathy, no thyromegaly, no jugular venous distention, no limb edema. VITAL SIGNS: His heart rate was 85, blood pressure was 95/52, temperature was 99.6, respiratory rate was 16 and oxygen saturation was 100% on room air. HEAD, EYES, EARS, NOSE, AND THROAT: Normocephalic and atraumatic. NECK: Supple. HEART: Showed normal first and second heart sounds. No gallop, rub or murmur. CHEST: Shows central trachea, equal bilateral chest expansion, air entry, vesicular breath sounds. I could not appreciate any crepitation or rhonchi. ABDOMEN: Scaphoid, soft, nontender. NEUROLOGIC: He was sleepy, but arousable. He opens eyes, tracks and responds appropriately. All cranial nerves intact. He moves upper extremities without difficulty. Has wounds in his left foot that is covered with dressing. LABORATORY DATA: His lab work on arrival showed a white cell count of 7300, hemoglobin 6, hematocrit 18, MCV 82 and platelet count of 107,000 with a manual differential showed 57% polymorphs, 23% lymphocytes and 18% monocytes. His sedimentation rate was 64 mm per hour. His prothrombin time was 16.6, INR 1.2, APTT was 42. His serum sodium was 140, potassium 3.3, chloride 100, bicarbonate 28, anion gap of 12, BUN 36, creatinine 5.8. Estimated GFR was 10 mL per minute. His glucose was 197. Lactic acid was 1.5, calcium was 8.1, magnesium was 1.9. Total bilirubin, AST, ALT, alkaline phosphatase were normal. C-reactive protein was high at 149 mg per liter, total protein 7.1, albumin was 2.3. ASSESSMENT AND PLAN: In summary, this is a 55-year-old male patient who was a resident at [facility], who was admitted with altered mental status. Further investigation showed that he has severe anemia with hemoglobin of 6, hematocrit of 18, end-stage renal disease, on hemodialysis and draining postoperative wound of his left foot and COVID-19 infection. The patient is on multiple antihypertensive medications and maybe that his blood pressure is low because of that. My plan is to reconcile all his medications. I will give him a half a liter of normal saline. He was started on Zosyn and vancomycin. I have consulted the machine group leader and Infectious Disease specialist. I will change his levetiracetam to be given IV. I will hold all his antihypertensive medication for now. I will start him on insulin sliding scale. I will hold all his antihypertensive medication and monitor his response. GORAN DR: Tyler TID: [id number]
[2021-05-26] MEDS ORDERED: levETIRAcetam 500 MG TABLET PO SCH (14:00)
[2021-05-26] MEDS: ATORVASTATIN CALCIUM 10 MG TABLET. PO SCH (15:08)
[2021-05-26] MEDS: EZETIMIBE 10 MG TABLET. PO SCH (15:08)
[2021-05-26] MEDS: PREGABALIN 75 MG CAPSULE PO SCH ×2 (15:08→21:40)
[2021-05-26] MEDS: PANTOPRAZOLE 40 MG TABLET.DR. PO SCH (15:08)
[2021-05-26] MEDS: ASPIRIN ENTERIC COATED 81 MG TABLET.DR. PO SCH (15:08)
[2021-05-26] MEDS: CHOLECALCIFEROL (VITAMIN D3) 1,000 UNIT TABLET PO SCH (15:08)
[2021-05-26] MEDS: TOPIRAMATE 100 MG TABLET. PO SCH ×2 (15:09→21:42)
--- NOTE | 2021-05-26 15:11 | PDOC2 ---
CONSULT Date of Consult Date of Consult DATE: 05/26/21 TIME: 14:59 Reason for Consult Reason for Consult: ESRD Referring Physician Referring Physician: MAURO Identification/Chief Complaint Chief Complaint CONFUSED Source Source: Chart review History of Present Illness Reason for Visit: THIS IS A YR WITH ESRD. ON HD ON MWF. LAST TX ON MONDAY. HAS A RIGHT IJ TDC FOR ACCESS. ADMITTED WITH CONFUSION. NO ACUTE CHANGES ON CT HEAD. HAS BEEN AT [facility] AND NOTED TO BE CONFUSED. HE ALSO HAD A FEVER AND LOW BP. NOTED TO BE VERY ANEMIC WITH HGB OF 6.0 AND THROMBOCYTOPENIC. HIS ESR AND CRP ARE HIGH AND HE IS ALSO POS FOR COVID 19 AG. HE HAS A LEFT TMA STUMP WOUND WHICH IS DEHISCED AND THERE IS CONCERNS FOR OSTEOMYELTIS. HIS LABS ARE C/W ESRD. ESRD IS DUE TO DM II Past Medical History Cardiovascular: CAD, CHF, HTN Pulmonary: COPD GI: Constipation Rheumatologic: Other Endocrine: Diabetes, Hyperparathyroidism Past Surgical History Past Surgical History RIGHT IJ TDC, FAILED LEFT ARM AVF, LEFT TMA Family History Family History: Cancer, Heart Disease Social History ALCOHOL: none Drugs: None Lives: with Family Current Problem List Problem List Problems Medical Problems: (1) Altered mental status Status: Acute (2) COVID-19 Status: Acute (3) Draining postoperative wound Status: Acute (4) ESRD (end stage renal disease) on dialysis Status: Acute (5) Severe anemia Status: Acute Current Medications Current Medications Current Medications Sodium Chloride 1,000 ml @ 1,000 mls/hr 1X ONCE IV ; Start 05/26/21 at 01:30; Stop 05/26/21 at 02:29; Status DC Piperacillin Sod/ Tazobactam Sod (Zosyn Per Pharmacy) 1 each PRN DAILY PRN MC SEE COMMENTS; Start 05/26/21 at 01:30 Piperacillin Sod/ Tazobactam Sod 3.375 gm/Sodium Chloride 50 ml @ 100 mls/hr 1X ONCE IV Last administered on 05/26/21at 03:25; Start 05/26/21 at 02:15; Stop 05/26/21 at 02:44; Status DC Vancomycin HCl (Vanco Per Pharmacy) 1 each PRN DAILY PRN MC SEE COMMENTS Last administered on 05/26/21at 06:01; Start 05/26/21 at 03:15 Sodium Chloride 500 ml @ 500 mls/hr 1X ONCE IV Last administered on 05/26/21at 03:25; Start 05/26/21 at 03:30; Stop 05/26/21 at 04:29; Status DC Ondansetron HCl (Zofran) 4 mg PRN Q8HRS PRN IVP NAUSEA/VOMITING; Start 05/26/21 at 03:30; Stop 05/27/21 at 03:29 Acetaminophen (Tylenol) 650 mg PRN Q4HRS PRN PO FEVER > 100.3'F; Start 05/26/21 at 03:30; Stop 05/27/21 at 03:29 Insulin Human Lispro (HumaLOG) 0-5 UNITS TIDWMEALS SQ Last administered on 05/26/21at 09:09; Start 05/26/21 at 08:00; Stop 05/26/21 at 12:46; Status DC Dextrose (Dextrose 50%-Water Syringe) 12.5 gm PRN Q15MIN PRN IV SEE COMMENTS; Start 05/26/21 at 03:30; Status Cancel Vancomycin HCl 1.75 gm/Sodium Chloride 500 ml @ 250 mls/hr 1X ONCE IV Last administered on 05/26/21at 05:47; Start 05/26/21 at 06:00; Stop 05/26/21 at 07:59; Status DC Piperacillin Sod/ Tazobactam Sod 2.25 gm/Sodium Chloride 50 ml @ 100 mls/hr Q8HRS IV Last administered on 05/26/21at 14:21; Start 05/26/21 at 08:00 Sodium Hypochlorite (Dakin'S 1/4 Strength) 1 lópez BID TP ; Start 05/26/21 at 11:00 Aspirin (Ecotrin) 81 mg DAILY PO ; Start 05/26/21 at 14:00 Atorvastatin Calcium (Lipitor) 10 mg DAILY PO ; Start 05/26/21 at 14:00 Cyanocobalamin (Vitamin B-12) 1,000 mcg DAILY PO ; Start 05/27/21 at 09:00 EZETIMIBE (Zetia) 10 mg DAILY PO ; Start 05/26/21 at 14:00 Topiramate (Topamax) 100 mg BID PO ; Start 05/26/21 at 14:00 Trazodone HCl (Desyrel) 50 mg QHS PO ; Start 05/26/21 at 21:00 Vitamin D (Vitamin D3) 1,000 unit DAILY PO ; Start 05/26/21 at 14:00 Duloxetine HCl (Cymbalta) 60 mg HS PO ; Start 05/26/21 at 21:00 Non-Formulary Medication (Icosapent Ethyl (Vascepa)) 2 cap BID PO ; Start 05/26/21 at 21:00; Status UNV Mirtazapine (Remeron) 45 mg QHS PO ; Start 05/26/21 at 21:00 Pantoprazole Sodium (Protonix) 40 mg DAILYAC PO ; Start 05/26/21 at 14:00 Pregabalin (Lyrica) 225 mg BID PO ; Start 05/26/21 at 14:00 Promethazine HCl (Phenergan) 25 mg PRN Q6HRS PRN PO NAUSEA/VOMITING; Start 05/26/21 at 13:00 Levetiracetam 100 ml @ 400 mls/hr Q12HR IV ; Start 05/26/21 at 21:00; Status UNV Insulin Human Lispro (HumaLOG) 0-5 UNITS TIDWMEALS SQ ; Start 05/26/21 at 17:00 Dextrose (Dextrose 50%-Water Syringe) 12.5 gm PRN Q15MIN PRN IV SEE COMMENTS; Start 05/26/21 at 12:45 Levetiracetam (Keppra) 500 mg BID PO ; Start 05/26/21 at 14:00; Status Cancel Lactobacillus Rhamnosus (Culturelle) 1 cap BID PO ; Start 05/26/21 at 21:00 Levetiracetam 100 ml @ 400 mls/hr Q12HR IV ; Start 05/26/21 at 14:00 Active Scripts Active Metoprolol Succinate 50 Mg Tab.er.24h 50 Mg PO DAILY 30 Days Levetiracetam 500 Mg Tablet 500 Mg PO BID 30 Days Reported Trazodone Hcl 50 Mg Tablet 1 Tab PO QHS Xultophy 100 Unit-3.6 mg/ml (Insulin Degludec/Liraglutide) 3 Ml Insuln.pen 24 Ml SQ HS Vitamin D (Cholecalciferol (Vitamin D3)) 1,000 Unit Capsule 1 Cap PO DAILY Atorvastatin Calcium 10 Mg Tablet 10 Mg PO DAILY Sildenafil (Sildenafil Citrate) 20 Mg Tablet 20 Mg PO TID Zetia (Ezetimibe) 10 Mg Tablet 10 Mg PO DAILY Omeprazole 40 Mg Capsule.dr 40 Mg PO DAILY Topiramate 100 Mg Tablet 100 Mg PO BID Promethazine Hcl 25 Mg Tablet 25 Mg PO Q6H PRN B-12 (Cyanocobalamin (Vitamin B-12)) 1,000 Mcg Tablet 1,000 Mcg PO DAILY Vascepa (Icosapent Ethyl) 1 Gm Capsule 2 Cap PO BID Aspirin Ec (Aspirin) 81 Mg Tablet.dr 81 Mg PO DAILY Duloxetine Hcl 60 Mg Capsule.dr 60 Mg PO HS Lyrica (Pregabalin) 225 Mg Capsule 225 Mg PO BID Losartan-Hctz 100-25 Mg Tab (Losartan/Hydrochlorothiazide) 1 Each Tablet 25 Mg PO DAILY Mirtazapine 45 Mg Tablet 45 Mg PO HS Amlodipine Besylate 5 Mg Tablet 5 Mg PO DAILY Allergies Allergies: Coded Allergies: No Known Drug Allergies (Unverified , 01/23/14) ROS Review of System UNABLE TO OBTAIN FROM PT Physical Exam General: Cooperative, No acute distress HEENT: Atraumatic, PERRLA Lungs: Clear to auscultation Heart: Regular rate Abdomen: Normal bowel sounds, No tenderness Extremities: No cyanosis, Other (RIGHT CHEST WALL TDC) Skin: No breakdown Neuro: Other (CONFUSED, NO ASYMMETRY, DIFFICULT TO AROUSE) Psych/Mental Status: Other (CONFUSED) MUSCULOSKELETAL: No joint tenderness, No swelling, Other (LEFT TMA WOUND) Vitals VITALS Vital Signs Date Time Temp Pulse Resp B/P (MAP) Pulse Ox O2 Delivery O2 Flow Rate FiO2 05/26/21 12:11 97.8 80 18 85/58 (67) 100 Nasal Cannula 2.0 97.8 Labs Labs Laboratory Tests Test 05/26/21 01:30 05/26/21 06:00 05/26/21 08:16 05/26/21 11:41 White Blood Count 7.3 x10^3/uL (4.0-11.0) Red Blood Count 2.26 x10^6/uL (4.30-5.70) Hemoglobin 6.0 g/dL (13.0-17.5) Hematocrit 18.6 % (39.0-53.0) Mean Corpuscular Volume 82 fL (79-100) Mean Corpuscular Hemoglobin 27 pg (25-35) Mean Corpuscular Hemoglobin Concent 32 g/dL (31-37) Red Cell Distribution Width 24.4 % (11.5-14.5) Platelet Count 107 x10^3/uL (140-400) Neutrophils (%) (Auto) 57 % (31-73) Lymphocytes (%) (Auto) 23 % (24-48) Monocytes (%) (Auto) 18 % (0-9) Eosinophils (%) (Auto) 2 % (0-3) Basophils (%) (Auto) 0 % (0-3) Neutrophils # (Auto) 4.2 x10^3/uL (1.8-7.7) Lymphocytes # (Auto) 1.7 x10^3/uL (1.0-4.8) Monocytes # (Auto) 1.3 x10^3/uL (0.0-1.1) Eosinophils # (Auto) 0.1 x10^3/uL (0.0-0.7) Basophils # (Auto) 0.0 x10^3/uL (0.0-0.2) Segmented Neutrophils % 62 % (35-66) Lymphocytes % 26 % (24-48) Monocytes % 9 % (0-10) Eosinophils % 2 % (0-5) Basophils % 1 % (0-3) Nucleated Red Blood Cells 2 Platelet Estimate Decreased (ADEQUATE) Polychromasia Slight Hypochromasia Slight Poikilocytosis Slight Anisocytosis Mod Ovalocytes Occ Helmet Cells Occ Erythrocyte Sedimentation Rate 54 (0-15) Prothrombin Time 15.6 SEC (11.7-14.0) Prothromb Time International Ratio 1.2 (0.8-1.1) Activated Partial Thromboplast Time 42 SEC (24-38) Sodium Level 140 mmol/L (136-145) Potassium Level 3.3 mmol/L (3.5-5.1) Chloride Level 100 mmol/L (98-107) Carbon Dioxide Level 28 mmol/L (21-32) Anion Gap 12 (6-14) Blood Urea Nitrogen 36 mg/dL (8-26) Creatinine 5.8 mg/dL (0.7-1.3) Estimated GFR (Cockcroft-Gault) 10.2 BUN/Creatinine Ratio 6 (6-20) Glucose Level 197 mg/dL (70-99) Lactic Acid Level 1.5 mmol/L (0.4-2.0) Calcium Level 8.1 mg/dL (8.5-10.1) Magnesium Level 1.9 mg/dL (1.8-2.4) Total Bilirubin 0.8 mg/dL (0.2-1.0) Aspartate Amino Transf (AST/SGOT) 21 U/L (15-37) Alanine Aminotransferase (ALT/SGPT) 12 U/L (16-63) Alkaline Phosphatase 99 U/L (46-116) C-Reactive Protein, Quantitative 149.6 mg/L (0-3.3) Total Protein 7.1 g/dL (6.4-8.2) Albumin 2.3 g/dL (3.4-5.0) Albumin/Globulin Ratio 0.5 (1.0-1.7) SARS-CoV-2 Antigen (Rapid) Positive (NEGATIVE) Glucose (Fingerstick) 158 mg/dL (70-99) 139 mg/dL (70-99) Laboratory Tests Test 05/26/21 01:30 05/26/21 06:00 05/26/21 08:16 05/26/21 11:41 White Blood Count 7.3 x10^3/uL (4.0-11.0) Red Blood Count 2.26 x10^6/uL (4.30-5.70) Hemoglobin 6.0 g/dL (13.0-17.5) Hematocrit 18.6 % (39.0-53.0) Mean Corpuscular Volume 82 fL (79-100) Mean Corpuscular Hemoglobin 27 pg (25-35) Mean Corpuscular Hemoglobin Concent 32 g/dL (31-37) Red Cell Distribution Width 24.4 % (11.5-14.5) Platelet Count 107 x10^3/uL (140-400) Neutrophils (%) (Auto) 57 % (31-73) Lymphocytes (%) (Auto) 23 % (24-48) Monocytes (%) (Auto) 18 % (0-9) Eosinophils (%) (Auto) 2 % (0-3) Basophils (%) (Auto) 0 % (0-3) Neutrophils # (Auto) 4.2 x10^3/uL (1.8-7.7) Lymphocytes # (Auto) 1.7 x10^3/uL (1.0-4.8) Monocytes # (Auto) 1.3 x10^3/uL (0.0-1.1) Eosinophils # (Auto) 0.1 x10^3/uL (0.0-0.7) Basophils # (Auto) 0.0 x10^3/uL (0.0-0.2) Segmented Neutrophils % 62 % (35-66) Lymphocytes % 26 % (24-48) Monocytes % 9 % (0-10) Eosinophils % 2 % (0-5) Basophils % 1 % (0-3) Nucleated Red Blood Cells 2 Platelet Estimate Decreased (ADEQUATE) Polychromasia Slight Hypochromasia Slight Poikilocytosis Slight Anisocytosis Mod Ovalocytes Occ Helmet Cells Occ Erythrocyte Sedimentation Rate 54 (0-15) Prothrombin Time 15.6 SEC (11.7-14.0) Prothromb Time International Ratio 1.2 (0.8-1.1) Activated Partial Thromboplast Time 42 SEC (24-38) Sodium Level 140 mmol/L (136-145) Potassium Level 3.3 mmol/L (3.5-5.1) Chloride Level 100 mmol/L (98-107) Carbon Dioxide Level 28 mmol/L (21-32) Anion Gap 12 (6-14) Blood Urea Nitrogen 36 mg/dL (8-26) Creatinine 5.8 mg/dL (0.7-1.3) Estimated GFR (Cockcroft-Gault) 10.2 BUN/Creatinine Ratio 6 (6-20) Glucose Level 197 mg/dL (70-99) Lactic Acid Level 1.5 mmol/L (0.4-2.0) Calcium Level 8.1 mg/dL (8.5-10.1) Magnesium Level 1.9 mg/dL (1.8-2.4) Total Bilirubin 0.8 mg/dL (0.2-1.0) Aspartate Amino Transf (AST/SGOT) 21 U/L (15-37) Alanine Aminotransferase (ALT/SGPT) 12 U/L (16-63) Alkaline Phosphatase 99 U/L (46-116) C-Reactive Protein, Quantitative 149.6 mg/L (0-3.3) Total Protein 7.1 g/dL (6.4-8.2) Albumin 2.3 g/dL (3.4-5.0) Albumin/Globulin Ratio 0.5 (1.0-1.7) SARS-CoV-2 Antigen (Rapid) Positive (NEGATIVE) Glucose (Fingerstick) 158 mg/dL (70-99) 139 mg/dL (70-99) Images Images PATIENT: FER CHAUDHARY ACCOUNT: [id number] : 1965 LOCATION: ER AGE: 55 SEX: M EXAM STATUS: REG ER ORD. PHYSICIAN: VIJAYA BRIAN DO REASON: altered mental status PROCEDURE: CT HEAD AND CERVICAL SPINE WO CT HEAD AND C-SPINE WO History: Reason: altered mental status / Spl. Instructions: / History: . Pain Comparison: September 13, 2016 Technique: Noncontrast CT imaging was performed of the head and cervical spine. Coronal and sagittal reconstructions were performed. Exposure: One or more of the following individualized dose reduction techniques were utilized for this examination: 1. Automated exposure control 2. Adjustment of the mA and/or kV according to patient size 3. Use of iterative reconstruction technique. Findings: Head CT: No intracranial hemorrhage. No mass effect. No hydrocephalus. Left posterior parietal encephalomalacia likely related to prior infarct. Chronic right basal ganglia lacunar infarct. Ex vacuo dilatation of the right lateral ventricle. Mild foci of decreased attenuation within the hemispheric white matter, most often due to chronic microvascular ischemia. Imaged orbits are unremarkable. Imaged paranasal sinuses and mastoid air cells are clear. No acute calvarial fracture. Cervical spine CT: Normal vertebral body height and alignment. No fracture. Moderate C5-C6 degenerative disc changes. Mild apical septal thickening. Secretions within the upper trachea. Multifocal carious dentition and periodontal disease. Impression: Head CT: 1. No acute intracranial abnormality. 2. Chronic right basal ganglia and left parietal infarcts. Cervical spine CT: 1. No acute fracture or subluxation of the cervical spine. 2. Multilevel cervical spondylosis most prominent C5-C6. 3. Biapical septal thickening, may indicate mild pulmonary edema. PATIENT: FER CHAUDHARY ACCOUNT: [id number] : 1965 LOCATION: ER AGE: 55 SEX: M EXAM STATUS: REG ER ORD. PHYSICIAN: VIJAYA BRIAN DO REASON: fever, altered mental status PROCEDURE: CHEST AP ONLY XR CHEST 1V History: Reason: fever, altered mental status / Spl. Instructions: / History: Comparison: September 13, 2017 Findings: Moderate diffuse interstitial thickening with ill-defined opacities. No pleural effusion. Enlarged cardiac size. Right IJ central line with tip projecting over the right atrium. Prior median sternotomy. No pneumothorax. Impression: 1. Moderate diffuse interstitial thickening with ill-defined opacities, may represent pulmonary edema. Electronically signed by: Luis Manuel Flores DO (05/26/2021 2:45 AM) [facility] Assessment/Plan Assessment/Plan IMP ESRD-MWF ANEMIA DM II-LABILE BG ENCEPHALOPATHY HTN HX LEFT TMA STUMP WOUND PROB SEPSIS HYPOTENSION MALNUTRITION PLAN HOLD HIS BP MEDS PRBC TODAY WITH HD HD TODAY UF TOLERATED START RETACRIT ANTIBIOTICS WILL NEED WOUND CARE HE IS VERY ILL HAS HAD PROGRESSIVE HEALTH DECLINE IN LAST ONE YEAR POOR PROGNOSIS WILL FOLLOW NUBIA PATTON MD May 26, 2021 15:11
--- NOTE | 2021-05-26 16:19 | NUR ---
SS discussed with pt RN. SS received notification that pt is skilled rehabilitation resident from [facility], ; fax [phone]. COVID19 positive. Pt has outpatient dialysis at [facility], ; fax [phone]. Pt on IV Zosyn. SS spoke with Italo from [facility]. Italo stated that she will discuss COVID19 positive test result with her hris administrator but reported that if pt is able to return he will need new PT/OT evaluations. Pt's RN notified.
--- NOTE | 2021-05-26 16:30 | NUR ---
To dialysis by bed.
[2021-05-26] MEDS: INSULIN LISPRO 300 UNITS/3 ML VIAL. SQ SCH (17:00)
[2021-05-26] MEDS ORDERED: DIALYSIS PATIENT. MC PRN (18:30)
[2021-05-26] MEDS ORDERED: NON FORMULARY ITEM (Icosapent Ethyl (Vascepa) 2 CAP) PO SCH (21:00)
[2021-05-26] MEDS: EPOETIN ALFA-EPBX for ESRD 20,000 UNIT/ML VIAL. SQ SCH (21:39)
[2021-05-26] MEDS: LACTOBACILLUS RHAMNOSUS GG 1 CAPSULE. PO SCH (21:40)
[2021-05-26] MEDS: DULoxetine HCL 30 MG CAPSULE.DR PO SCH (21:40)
[2021-05-26] MEDS: MIRTAZAPINE 15 MG TABLET PO SCH (21:40)
[2021-05-26] MEDS: traZODone 50 MG TABLET. PO SCH (21:41)
[2021-05-27 03:00] VITALS: BP 114/69
[2021-05-27] MEDS ORDERED: VANCOMYCIN RANDOM LEVEL. MC ONE (05:00)
[2021-05-27] MEDS: PIPERACILLIN/TAZOBACTAM 2.25 GM in IV NORMAL SALINE 50ML 50 ML IV SCH ×3 (06:19→22:02)
[2021-05-27 06:47] LABS: HEMATOCRIT 26.9 % (39.0-53.0); HEMOGLOBIN 8.6 g/dL (13.0-17.5); RED BLOOD COUNT 3.14 x10^6/uL (4.30-5.70); RED CELL DISTRIBUTION WIDTH 23.7 % (11.5-14.5); WHITE BLOOD COUNT 7.3 x10^3/uL (4.0-11.0)
[2021-05-27 07:00] VITALS: BP 114/60
[2021-05-27] MEDS: INSULIN LISPRO 300 UNITS/3 ML VIAL. SQ SCH ×3 (07:33→16:54)
--- NOTE | 2021-05-27 08:53 | EKG ---
[facility] [address] [place] [id number] Test Date: 2021-05-26 Test Time: 05:43:21 Pat Name: FER CHAUDHARY Department: Room: 2 1 Gender: M Waterproofer: : 1965 Requested By: VIJAYA BRIAN Order Number: [id number] Reading MD: Tim Head Measurements Intervals [place] Rate: 83 P: 90 GA: 198 QRS: -35 QRSD: 98 T: 138 QT: 434 QTc: 511 Interpretive Statements SINUS RHYTHM ABNORMAL LEFT AXIS DEVIATION QRS(T) CONTOUR ABNORMALITY CONSISTENT WITH A POSSIBLE OLD INFERIOR INFARCT NON SPECIFIC ST-T WAVE CHANGES Electronically Signed On 05-29-2021 16:38:44 STICKER HAND by Tim Head
[2021-05-27] MEDS: SODIUM HYPOCHLORITE 0.125% 473 ML BOTTLE. TP SCH ×2 (09:00→21:00)
--- NOTE | 2021-05-27 09:09 | PDOC ---
PROGRESS NOTES Date of Service DATE: 05/27/21 TIME: 09:03 Subjective Subjective Patient remains very lethargic, somnolent and not conversational. Objective Objective Vital Signs Date Time Temp Pulse Resp B/P (MAP) Pulse Ox O2 Delivery O2 Flow Rate FiO2 05/27/21 03:00 86 18 114/69 (84) 92 Room Air 05/26/21 20:00 2.0 05/26/21 19:00 98.3 98.3 Intake and Output 05/27/21 07:00 Intake Total 420 ml Balance 420 ml Intake Oral 400 ml Blood Product IV Normal Saline Flush 20 ml # Voids 1 # Bowel Movements 1 Physical Exam Physical Exam General: Somnolent not conversational but arousable Dermatology: -S/p left TMA. There is full dehiscence to the entire surgical stump. The periwound is necrotic, and the wound base is fibrotic, probe to bone with minimal plantar flap undermining. There is minimal purulent drainage but negative for bleeding, fluctuance or proximal streaking. There is a stable eschar measures 5 x 6 cm at the anterior dorsal ankle. Otherwise, there is no exposed tendon underneath. Vascular: -Foot is warm to touch -DP and PT are palpable Neurology: -Light touch sensation diminished to the proximal ankle Musculoskeletal: -Not significant for equina varus deformity -S/p proximal TMA -Calf is soft and nontender -Passive ankle range of motion was smooth without crepitus or pain -Strength was deferred due to the mental status Assessment Assessment Problems Medical Problems: (1) Altered mental status Status: Acute (2) COVID-19 Status: Acute (3) Draining postoperative wound Status: Acute (4) ESRD (end stage renal disease) on dialysis Status: Acute (5) Severe anemia Status: Acute Plan Plan of Care 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 In 2020 -Clinically, the left TMA stump has fully dehisced, probe to bone. X-ray remarked communicating air to the distal stump with post-op osseous changes versus osteomyelitis. Because patient just underwent TMA for source control, and now the bone is exposed, the index of suspicion for residual/new osteomyelitis is high. -Although the DP and PT are palpable at bedside, the newfound eschar to the ante rior dorsal ankle; failed dorsal/plantar skin flaps are concerning for small vessel disease, inadequate source control and incompliance during postoperative recovery. -Patient remains very lethargic and not conversational. However yesterday, I discussed with family, Ms. Mckinley on the phone that a revised TMA/short distal stump may not be functional and patient will be always at risk for recurrent ulcers. The skin flap at the foot level may not survive. Alternatively, a BKA is a viable and reasonable option. It is functional and patient can be fitted for prostheses. Family is leaning towards BKA but patient himself is the power of workers compensation attorney. -The dorsal eschar was dressed with Betadine wet-to-dry, the distal dehisced wound was dressed with Dakin 0.25% wet-to-dry Dressing change as above twice a day by floor RN -Activity: Nonweightbearing to left lower extremity, PT eval and treat -Continue with empiric IV antibiotics, Vanco and Zosyn -Pending bedside deep wound culture -Blood culture no growth to date -Medical optimization per internal medicine -I highly recommend a vascular consult for possible BKA especially given the extensive coronary/arterial disease. Dispo: Patient remains somnolent and not conversational. The source control to the left distal TMA stump is urgent but not emergent. Continue local wound care, empiric IV antibiotics. Consider vascular consult and POA if patient is unable to make decisions for surgical management. Comment Review of Relevant I have reviewed the following items yifan (where applicable) has been applied. Labs Laboratory Tests Test 05/26/21 01:30 05/26/21 06:00 05/26/21 08:16 05/26/21 11:41 White Blood Count 7.3 x10^3/uL (4.0-11.0) Red Blood Count 2.26 x10^6/uL (4.30-5.70) Hemoglobin 6.0 g/dL (13.0-17.5) Hematocrit 18.6 % (39.0-53.0) Mean Corpuscular Volume 82 fL (79-100) Mean Corpuscular Hemoglobin 27 pg (25-35) Mean Corpuscular Hemoglobin Concent 32 g/dL (31-37) Red Cell Distribution Width 24.4 % (11.5-14.5) Platelet Count 107 x10^3/uL (140-400) Neutrophils (%) (Auto) 57 % (31-73) Lymphocytes (%) (Auto) 23 % (24-48) Monocytes (%) (Auto) 18 % (0-9) Eosinophils (%) (Auto) 2 % (0-3) Basophils (%) (Auto) 0 % (0-3) Neutrophils # (Auto) 4.2 x10^3/uL (1.8-7.7) Lymphocytes # (Auto) 1.7 x10^3/uL (1.0-4.8) Monocytes # (Auto) 1.3 x10^3/uL (0.0-1.1) Eosinophils # (Auto) 0.1 x10^3/uL (0.0-0.7) Basophils # (Auto) 0.0 x10^3/uL (0.0-0.2) Segmented Neutrophils % 62 % (35-66) Lymphocytes % 26 % (24-48) Monocytes % 9 % (0-10) Eosinophils % 2 % (0-5) Basophils % 1 % (0-3) Nucleated Red Blood Cells 2 Platelet Estimate Decreased (ADEQUATE) Polychromasia Slight Hypochromasia Slight Poikilocytosis Slight Anisocytosis Mod Ovalocytes Occ Helmet Cells Occ Erythrocyte Sedimentation Rate 54 (0-15) Prothrombin Time 15.6 SEC (11.7-14.0) Prothromb Time International Ratio 1.2 (0.8-1.1) Activated Partial Thromboplast Time 42 SEC (24-38) Sodium Level 140 mmol/L (136-145) Potassium Level 3.3 mmol/L (3.5-5.1) Chloride Level 100 mmol/L (98-107) Carbon Dioxide Level 28 mmol/L (21-32) Anion Gap 12 (6-14) Blood Urea Nitrogen 36 mg/dL (8-26) Creatinine 5.8 mg/dL (0.7-1.3) Estimated GFR (Cockcroft-Gault) 10.2 BUN/Creatinine Ratio 6 (6-20) Glucose Level 197 mg/dL (70-99) Lactic Acid Level 1.5 mmol/L (0.4-2.0) Calcium Level 8.1 mg/dL (8.5-10.1) Magnesium Level 1.9 mg/dL (1.8-2.4) Total Bilirubin 0.8 mg/dL (0.2-1.0) Aspartate Amino Transf (AST/SGOT) 21 U/L (15-37) Alanine Aminotransferase (ALT/SGPT) 12 U/L (16-63) Alkaline Phosphatase 99 U/L (46-116) C-Reactive Protein, Quantitative 149.6 mg/L (0-3.3) Total Protein 7.1 g/dL (6.4-8.2) Albumin 2.3 g/dL (3.4-5.0) Albumin/Globulin Ratio 0.5 (1.0-1.7) Hepatitis B Surface Antigen Nonreactive (Nonreactive) Hepatitis B Surface Antibody Reactive SARS-CoV-2 Antigen (Rapid) Positive (NEGATIVE) Glucose (Fingerstick) 158 mg/dL (70-99) 139 mg/dL (70-99) Test 05/26/21 20:14 05/27/21 06:35 05/27/21 07:29 Glucose (Fingerstick) 128 mg/dL (70-99) 133 mg/dL (70-99) White Blood Count 7.3 x10^3/uL (4.0-11.0) Red Blood Count 3.14 x10^6/uL (4.30-5.70) Hemoglobin 8.6 g/dL (13.0-17.5) Hematocrit 26.9 % (39.0-53.0) Mean Corpuscular Volume 86 fL (79-100) Mean Corpuscular Hemoglobin 27 pg (25-35) Mean Corpuscular Hemoglobin Concent 32 g/dL (31-37) Red Cell Distribution Width 23.7 % (11.5-14.5) Platelet Count 124 x10^3/uL (140-400) Random Vancomycin Level 26.1 mcg/mL Laboratory Tests Test 05/26/21 11:41 05/26/21 20:14 05/27/21 06:35 05/27/21 07:29 Glucose (Fingerstick) 139 mg/dL (70-99) 128 mg/dL (70-99) 133 mg/dL (70-99) White Blood Count 7.3 x10^3/uL (4.0-11.0) Red Blood Count 3.14 x10^6/uL (4.30-5.70) Hemoglobin 8.6 g/dL (13.0-17.5) Hematocrit 26.9 % (39.0-53.0) Mean Corpuscular Volume 86 fL (79-100) Mean Corpuscular Hemoglobin 27 pg (25-35) Mean Corpuscular Hemoglobin Concent 32 g/dL (31-37) Red Cell Distribution Width 23.7 % (11.5-14.5) Platelet Count 124 x10^3/uL (140-400) Random Vancomycin Level 26.1 mcg/mL Microbiology 05/26/21 Blood Culture - Preliminary, Resulted NO GROWTH AFTER 1 DAY Medications Current Medications Sodium Chloride 1,000 ml @ 1,000 mls/hr 1X ONCE IV ; Start 05/26/21 at 01:30; Stop 05/26/21 at 02:29; Status DC Piperacillin Sod/ Tazobactam Sod (Zosyn Per Pharmacy) 1 each PRN DAILY PRN MC SEE COMMENTS; Start 05/26/21 at 01:30 Piperacillin Sod/ Tazobactam Sod 3.375 gm/Sodium Chloride 50 ml @ 100 mls/hr 1X ONCE IV Last administered on 05/26/21at 03:25; Start 05/26/21 at 02:15; Stop 05/26/21 at 02:44; Status DC Vancomycin HCl (Vanco Per Pharmacy) 1 each PRN DAILY PRN MC SEE COMMENTS Last administered on 05/26/21at 06:01; Start 05/26/21 at 03:15 Sodium Chloride 500 ml @ 500 mls/hr 1X ONCE IV Last administered on 05/26/21at 03:25; Start 05/26/21 at 03:30; Stop 05/26/21 at 04:29; Status DC Ondansetron HCl (Zofran) 4 mg PRN Q8HRS PRN IVP NAUSEA/VOMITING; Start 05/26/21 at 03:30; Stop 05/27/21 at 03:29; Status DC Acetaminophen (Tylenol) 650 mg PRN Q4HRS PRN PO FEVER > 100.3'F; Start 05/26/21 at 03:30; Stop 05/27/21 at 03:29; Status DC Insulin Human Lispro (HumaLOG) 0-5 UNITS TIDWMEALS SQ Last administered on 05/26/21at 09:09; Start 05/26/21 at 08:00; Stop 05/26/21 at 12:46; Status DC Dextrose (Dextrose 50%-Water Syringe) 12.5 gm PRN Q15MIN PRN IV SEE COMMENTS; Start 05/26/21 at 03:30; Status Cancel Vancomycin HCl 1.75 gm/Sodium Chloride 500 ml @ 250 mls/hr 1X ONCE IV Last administered on 05/26/21at 05:47; Start 05/26/21 at 06:00; Stop 05/26/21 at 07:59; Status DC Piperacillin Sod/ Tazobactam Sod 2.25 gm/Sodium Chloride 50 ml @ 100 mls/hr Q8HRS IV Last administered on 05/27/21at 06:19; Start 05/26/21 at 08:00 Sodium Hypochlorite (Dakin'S 1/4 Strength) 1 lópez BID TP Last administered on 05/26/21at 21:38; Start 05/26/21 at 11:00 Aspirin (Ecotrin) 81 mg DAILY PO Last administered on 05/26/21at 15:08; Start 05/26/21 at 14:00 Atorvastatin Calcium (Lipitor) 10 mg DAILY PO Last administered on 05/26/21at 15:08; Start 05/26/21 at 14:00 Cyanocobalamin (Vitamin B-12) 1,000 mcg DAILY PO ; Start 05/27/21 at 09:00 EZETIMIBE (Zetia) 10 mg DAILY PO Last administered on 05/26/21at 15:08; Start 05/26/21 at 14:00 Topiramate (Topamax) 100 mg BID PO Last administered on 05/26/21at 21:42; Start 05/26/21 at 14:00 Trazodone HCl (Desyrel) 50 mg QHS PO Last administered on 05/26/21at 21:41; Start 05/26/21 at 21:00 Vitamin D (Vitamin D3) 1,000 unit DAILY PO Last administered on 05/26/21at 15:08; Start 05/26/21 at 14:00 Duloxetine HCl (Cymbalta) 60 mg HS PO Last administered on 05/26/21at 21:40; Start 05/26/21 at 21:00 Non-Formulary Medication (Icosapent Ethyl (Vascepa)) 2 cap BID PO ; Start 05/26/21 at 21:00; Status UNV Mirtazapine (Remeron) 45 mg QHS PO Last administered on 05/26/21at 21:40; Start 05/26/21 at 21:00 Pantoprazole Sodium (Protonix) 40 mg DAILYAC PO Last administered on 05/26/21at 15:08; Start 05/26/21 at 14:00 Pregabalin (Lyrica) 225 mg BID PO Last administered on 05/26/21at 21:40; Start 05/26/21 at 14:00 Promethazine HCl (Phenergan) 25 mg PRN Q6HRS PRN PO NAUSEA/VOMITING; Start 05/26/21 at 13:00 Levetiracetam 100 ml @ 400 mls/hr Q12HR IV ; Start 05/26/21 at 21:00; Status UNV Insulin Human Lispro (HumaLOG) 0-5 UNITS TIDWMEALS SQ ; Start 05/26/21 at 17:00 Dextrose (Dextrose 50%-Water Syringe) 12.5 gm PRN Q15MIN PRN IV SEE COMMENTS; Start 05/26/21 at 12:45 Levetiracetam (Keppra) 500 mg BID PO ; Start 05/26/21 at 14:00; Status Cancel Lactobacillus Rhamnosus (Culturelle) 1 cap BID PO Last administered on 05/26/21at 21:40; Start 05/26/21 at 21:00 Levetiracetam 100 ml @ 400 mls/hr Q12HR IV Last administered on 05/26/21at 21:39; Start 05/26/21 at 14:00 Epoetin Catalino-epbx (RETACRIT for ESRD PTS) 10,000 unit MoWeFr@2100 SQ Last administered on 05/26/21at 21:39; Start 05/26/21 at 21:00 Vancomycin HCl (Vancomycin Random Level) 1 each 1X ONCE MC ; Start 05/27/21 at 05:00; Stop 05/27/21 at 05:01; Status DC Info (PHARMACY MONITORING -- do not chart) 1 each PRN DAILY PRN MC SEE COMMENTS; Start 05/26/21 at 18:30 Active Scripts Active Metoprolol Succinate 50 Mg Tab.er.24h 50 Mg PO DAILY 30 Days Levetiracetam 500 Mg Tablet 500 Mg PO BID 30 Days Reported Trazodone Hcl 50 Mg Tablet 1 Tab PO QHS Xultophy 100 Unit-3.6 mg/ml (Insulin Degludec/Liraglutide) 3 Ml Insuln.pen 24 Ml SQ HS Vitamin D (Cholecalciferol (Vitamin D3)) 1,000 Unit Capsule 1 Cap PO DAILY Atorvastatin Calcium 10 Mg Tablet 10 Mg PO DAILY Sildenafil (Sildenafil Citrate) 20 Mg Tablet 20 Mg PO TID Zetia (Ezetimibe) 10 Mg Tablet 10 Mg PO DAILY Omeprazole 40 Mg Capsule.dr 40 Mg PO DAILY Topiramate 100 Mg Tablet 100 Mg PO BID Promethazine Hcl 25 Mg Tablet 25 Mg PO Q6H PRN B-12 (Cyanocobalamin (Vitamin B-12)) 1,000 Mcg Tablet 1,000 Mcg PO DAILY Vascepa (Icosapent Ethyl) 1 Gm Capsule 2 Cap PO BID Aspirin Ec (Aspirin) 81 Mg Tablet.dr 81 Mg PO DAILY Duloxetine Hcl 60 Mg Capsule.dr 60 Mg PO HS Lyrica (Pregabalin) 225 Mg Capsule 225 Mg PO BID Losartan-Hctz 100-25 Mg Tab (Losartan/Hydrochlorothiazide) 1 Each Tablet 25 Mg PO DAILY Mirtazapine 45 Mg Tablet 45 Mg PO HS Amlodipine Besylate 5 Mg Tablet 5 Mg PO DAILY Vitals/I & O Vital Sign - Last 24 Hours 05/26/21 05/26/21 05/26/21 05/26/21 12:11 15:26 17:37 17:52 Temp 97.8 97.4 97.8 97.6 97.8 97.4 97.8 97.6 Pulse 80 81 81 81 Resp 18 16 20 20 B/P (MAP) 85/58 (67) 102/59 (73) 122/66 124/57 Pulse Ox 100 96 O2 Delivery Nasal Cannula Room Air O2 Flow Rate 2.0 05/26/21 05/26/21 05/26/21 05/27/21 19:00 20:00 23:00 03:00 Temp 98.3 98.3 Pulse 66 85 86 Resp 18 18 18 B/P (MAP) 113/63 (80) 91/46 (61) 114/69 (84) Pulse Ox 92 93 92 O2 Delivery Room Air Nasal Cannula Room Air Room Air O2 Flow Rate 2.0 Intake and Output 1/12/22 1/12/22 1/13/22 15:00 23:00 07:00 Intake Total 300 ml 20 ml 100 ml Balance 300 ml 20 ml 100 ml Justifications for Admission Other Justification JULIEN COVARRUBIAS DPTamika May 27, 2021 09:09
[2021-05-27] MEDS: VANCOMYCIN PER PHARMACY MC PRN ×2 (09:24→09:27)
--- NOTE | 2021-05-27 09:24 | CONS ---
DATE OF CONSULTATION: 05/27/2021 REQUESTING PHYSICIAN: Brook Valle MD REASON FOR CONSULTATION: Antibiotic management. HISTORY OF PRESENT ILLNESS: This is a 55-year-old gentleman who is a [place] [facility] resident with end-stage renal disease and he is a total care, was brought in because of the fever and altered mental status. The patient was found to have COVID positive. The patient has a left foot wound. The patient is not able to provide any information on how long he has a wound, but he has TMA stump ulcer and the patient has been started on vancomycin and Zosyn. The patient again not able to provide any history. He is awake and he does mumble a few words and able to occasionally nod appropriately. PAST MEDICAL HISTORY: Positive for diabetes mellitus; end-stage renal disease, on hemodialysis; coronary artery disease; atrial fibrillation; ischemic cardiomyopathy; hypertension; cerebrovascular accident; peripheral neuropathy; peripheral vascular disease; seizure disorder and left TMA. Has had carotid endarterectomy, coronary artery bypass grafting, AV shunt in the upper extremity. SOCIAL HISTORY: Negative for smoking, alcohol, illicit drug use. The patient is a [place] [facility] resident. ALLERGIES: No known drug allergies. CURRENT MEDICATIONS: Reviewed. REVIEW OF SYSTEMS: As in HPI. All other systems reviewed are negative. PHYSICAL EXAMINATION: GENERAL: Awake gentleman, not in distress. VITAL SIGNS: Temperature 98.3, pulse 86, respirations 18, blood pressure 114/69. HEENT: Both pupils are round and reacting. No conjunctival lesion. No lesion in the mouth. NECK: Supple. No JVP, no lymphadenopathy. LUNGS: Clear. HEART: S1, S2, regular. ABDOMEN: Soft, nontender. No organomegaly. EXTREMITIES: There are multiple superficial wounds on to the extremities. Muscle wasting present. TMA has an ulcer on the left foot. Dr. Welch had just debrided locally and the dressing was done, hence I did not open it. NEUROLOGIC: The patient is awake, try to say something, mumbles few words, occasional appropriate nodding. LABORATORY DATA: White count is 7.3. Sed rate is 54. BUN and creatinine is 36 and 5.8. COVID is positive. Blood cultures negative. CT head and cervical is negative. Foot x-ray showed some irregularity of the skin overlying the amputation and potential subcutaneous gas. IMPRESSION: 1. Encephalopathy. 2. COVID-19 positive. 3. Fever. 4. Left foot infection. 5. End-stage renal disease, on hemodialysis. 6. Seizure disorder. 7. Coronary artery disease. 8. Hypertension. 9. Diabetes. RECOMMENDATIONS: Agree with vancomycin and Zosyn. Supportive care. We will follow the cultures and see the progression. Thank you very much, Dr. Valle, for giving me opportunity to participate in this patient's care. EAGLE DR: Roma TID: [id number]
--- NOTE | 2021-05-27 09:29 | NUR ---
Pharmacy Vancomycin Dosing Note S:Consulted to monitor and dose vancomycin started 05/26/21. O:FER CHAUDHARY is a 55 year old M with Sepsis . Height: 5 feet, 10 inches Weight: 91.2 kg [place] Body Weight: 73.00 Adjusted Body Weight: 80.28 Dosing Weight: Other Antibiotics: ZOSYN 05/26 - LABS: Last BUN: 36 Last Creatinine: 5.8 Creatinine Clearance: ESRD HD mL/min Last WBC: 7.3 Last Procalcitonin: Tmax (past 24 hours): 98.3 Microbiology: MGTD I/O: 420 Drug Levels: Last Random level: 26.1 on 05/27/21 at 0635 Last dose given 05/26/21 at 0547 Vancomycin Dosing: Loading Dose: x1 Dosing Weight: Target Trough: 15-20 A: Based on Random trough of 26.1 and dialysis status: P: 1. No doses at this time. 2. Follow up Random level on 05/31/21 at 0600 3. Pharmacy will continue to monitor, follow and adjust therapy as needed. Roddy Hernandez [facility], 05/27/21 0940
[2021-05-27] MEDS: PANTOPRAZOLE 40 MG TABLET.DR. PO SCH (09:49)
[2021-05-27] MEDS: EZETIMIBE 10 MG TABLET. PO SCH (09:49)
[2021-05-27] MEDS: CHOLECALCIFEROL (VITAMIN D3) 1,000 UNIT TABLET PO SCH (09:49)
[2021-05-27] MEDS: CYANOCOBALAMIN (VITAMIN B-12) 1,000 MCG TABLET. PO SCH (09:49)
[2021-05-27] MEDS: PREGABALIN 75 MG CAPSULE PO SCH ×2 (09:49→22:04)
[2021-05-27] MEDS: ASPIRIN ENTERIC COATED 81 MG TABLET.DR. PO SCH (09:50)
[2021-05-27] MEDS: ATORVASTATIN CALCIUM 10 MG TABLET. PO SCH (09:50)
[2021-05-27] MEDS: TOPIRAMATE 100 MG TABLET. PO SCH ×2 (09:50→22:05)
[2021-05-27] MEDS: LACTOBACILLUS RHAMNOSUS GG 1 CAPSULE. PO SCH ×2 (09:50→22:05)
[2021-05-27 11:00] VITALS: BP 154/76
--- NOTE | 2021-05-27 11:50 | PDOC ---
Renal-Progress Notes Subjective Notes Notes STILL CONFUSED History of Present Illness Hx of present illness STILL VERY ILL Vitals Vitals Vital Signs Date Time Temp Pulse Resp B/P (MAP) Pulse Ox O2 Delivery O2 Flow Rate FiO2 05/27/21 11:00 97.3 106 17 154/76 (102) 100 Room Air 97.3 05/27/21 08:00 2.0 Weight Weight [ ] I.O. Intake and Output Intake and Output 05/27/21 07:00 Intake Total 420 ml Balance 420 ml Intake Oral 400 ml Blood Product IV Normal Saline Flush 20 ml # Voids 1 # Bowel Movements 1 Labs Labs Laboratory Tests Test 05/26/21 20:14 05/27/21 06:35 05/27/21 07:29 05/27/21 09:32 Glucose (Fingerstick) 128 mg/dL (70-99) 133 mg/dL (70-99) 129 mg/dL (70-99) White Blood Count 7.3 x10^3/uL (4.0-11.0) Red Blood Count 3.14 x10^6/uL (4.30-5.70) Hemoglobin 8.6 g/dL (13.0-17.5) Hematocrit 26.9 % (39.0-53.0) Mean Corpuscular Volume 86 fL (79-100) Mean Corpuscular Hemoglobin 27 pg (25-35) Mean Corpuscular Hemoglobin Concent 32 g/dL (31-37) Red Cell Distribution Width 23.7 % (11.5-14.5) Platelet Count 124 x10^3/uL (140-400) Random Vancomycin Level 26.1 mcg/mL Micro Micro Microbiology 05/26/21 Blood Culture - Preliminary, Resulted NO GROWTH AFTER 1 DAY Review of Systems Constitutional: yes: other (CONFUSED) Physical Exam General Appearance: no apparent distress Skin: warm Respiratory: decreased breath sounds Heart: S1S2 Abdomen: soft, bowel sounds present Genitourinary: bladder flat Neurology: confused Assessment Assessment IMP ESRD-MWF ANEMIA DM II-LABILE BG ENCEPHALOPATHY HTN HX LEFT TMA STUMP WOUND PROB SEPSIS HYPOTENSION-CORRECTED MALNUTRITION PLAN HOLD HIS BP MEDS HD TOMORROW CONT RETACRIT ANTIBIOTICS WILL NEED WOUND CARE HE IS VERY ILL HAS HAD PROGRESSIVE HEALTH DECLINE IN LAST ONE YEAR POOR PROGNOSIS WILL FOLLOW NUBIA PATTON MD May 27, 2021 11:50
--- NOTE | 2021-05-27 12:03 | NUR ---
SW following. Discussed with RN, pt from [facility] per Kat[facility] (SS). SW spoke with Volodymyr Petersen at [facility] - pt can return to this clinic 10 days after positive test. Volodymyr advised SW to call nearer to discharge so a new chair time can be found at a cohort clinic if needed. SW will continue to follow.
--- NOTE | 2021-05-27 12:35 | PDOC2 ---
NEUROLOGY CONSULT Date of Service DOS: DATE: 05/27/21 TIME: 12:23 Reason for Consult Reason for Consult: Altered mental status Referring Physician Referring Physician: Dr. Valle Source Source: Chart review History of Present Illness History of Present Illness Patient is a 55-year-old right-handed male resident at [facility], noticed by nursing staff the evening of 05/25 to have altered mental status, fever, hypotension, found in the emergency department to have positive COVID test with abnormal chest x-ray as well as a possible infected left foot. I have seen him in the past for diabetic neuropathy. Note that he has a history of nonepileptic seizures with extensive work-up including a 72-hour ambulatory electroencephalogram as well as several 24-hour in-lab electroencephalograms. I note that we caught at least 1 episode on the studies and determine they were nonepileptic. Nonetheless he has been maintained on levetiracetam. He has had no seizure activity here in the hospital. There is a history of stroke and chronic subdural hematoma. Past Medical History Cardiovascular: AFIB, CAD, CHF, HTN, NE, Hyperlipidemia CENTRAL NERVOUS SYSTEM: CVA, Periperal neuropathy (Diabetic), Seizure (Psychogenic nonepileptic) GI: Constipation, GERD Psych: Depression Renal/: Chronic renal failure (Dialysis), Urinary Incontinence Endocrine: Diabetes Past Surgical History Past Surgical History: CABG, Other (Cardiac catheterization, left foot partial amputation, left carotid endarterectomy) Family History Family History: No pertinent hx Social History Social History [facility] resident, former smoker Current Medications Current Medications Current Medications Sodium Chloride 1,000 ml @ 1,000 mls/hr 1X ONCE IV ; Start 05/26/21 at 01:30; Stop 05/26/21 at 02:29; Status DC Piperacillin Sod/ Tazobactam Sod (Zosyn Per Pharmacy) 1 each PRN DAILY PRN MC SEE COMMENTS; Start 05/26/21 at 01:30 Piperacillin Sod/ Tazobactam Sod 3.375 gm/Sodium Chloride 50 ml @ 100 mls/hr 1X ONCE IV Last administered on 05/26/21at 03:25; Start 05/26/21 at 02:15; Stop 05/26/21 at 02:44; Status DC Vancomycin HCl (Vanco Per Pharmacy) 1 each PRN DAILY PRN MC SEE COMMENTS Last administered on 05/27/21at 09:27; Start 05/26/21 at 03:15 Sodium Chloride 500 ml @ 500 mls/hr 1X ONCE IV Last administered on 05/26/21at 03:25; Start 05/26/21 at 03:30; Stop 05/26/21 at 04:29; Status DC Ondansetron HCl (Zofran) 4 mg PRN Q8HRS PRN IVP NAUSEA/VOMITING; Start 05/26/21 at 03:30; Stop 05/27/21 at 03:29; Status DC Acetaminophen (Tylenol) 650 mg PRN Q4HRS PRN PO FEVER > 100.3'F; Start 05/26/21 at 03:30; Stop 05/27/21 at 03:29; Status DC Insulin Human Lispro (HumaLOG) 0-5 UNITS TIDWMEALS SQ Last administered on at 09:09; Start 05/26/21 at 08:00; Stop 05/26/21 at 12:46; Status DC Dextrose (Dextrose 50%-Water Syringe) 12.5 gm PRN Q15MIN PRN IV SEE COMMENTS; Start 05/26/21 at 03:30; Status Cancel Vancomycin HCl 1.75 gm/Sodium Chloride 500 ml @ 250 mls/hr 1X ONCE IV Last administered on 05/26/21at 05:47; Start 05/26/21 at 06:00; Stop 05/26/21 at 07:59; Status DC Piperacillin Sod/ Tazobactam Sod 2.25 gm/Sodium Chloride 50 ml @ 100 mls/hr Q8HRS IV Last administered on 05/27/21at 06:19; Start 05/26/21 at 08:00 Sodium Hypochlorite (Dakin'S 1/4 Strength) 1 lópez BID TP Last administered on 05/27/21at 09:00; Start 05/26/21 at 11:00 Aspirin (Ecotrin) 81 mg DAILY PO Last administered on 05/27/21at 09:50; Start 05/26/21 at 14:00 Atorvastatin Calcium (Lipitor) 10 mg DAILY PO Last administered on 05/27/21at 09:50; Start 05/26/21 at 14:00 Cyanocobalamin (Vitamin B-12) 1,000 mcg DAILY PO Last administered on 05/27/21at 09:49; Start 05/27/21 at 09:00 EZETIMIBE (Zetia) 10 mg DAILY PO Last administered on 05/27/21 09:49; Start 05/26/21 at 14:00 Topiramate (Topamax) 100 mg BID PO Last administered on 05/27/21 09:50; Start 05/26/21 at 14:00 Trazodone HCl (Desyrel) 50 mg QHS PO Last administered on 05/26/21 21:41; Start 05/26/21 at 21:00 Vitamin D (Vitamin D3) 1,000 unit DAILY PO Last administered on 05/27/21 09:49; Start 05/26/21 at 14:00 Duloxetine HCl (Cymbalta) 60 mg HS PO Last administered on 05/26/21at 21:40; Start 05/26/21 at 21:00 Non-Formulary Medication (Icosapent Ethyl (Vascepa)) 2 cap BID PO ; Start 05/26/21 at 21:00; Status UNV Mirtazapine (Remeron) 45 mg QHS PO Last administered on 05/26/21at 21:40; Start 05/26/21 at 21:00 Pantoprazole Sodium (Protonix) 40 mg DAILYAC PO Last administered on 05/27/21 09:49; Start 05/26/21 at 14:00 Pregabalin (Lyrica) 225 mg BID PO Last administered on 05/27/21 09:49; Start 05/26/21 at 14:00 Promethazine HCl (Phenergan) 25 mg PRN Q6HRS PRN PO NAUSEA/VOMITING; Start 05/26/21 at 13:00 Levetiracetam 100 ml @ 400 mls/hr Q12HR IV ; Start 05/26/21 at 21:00; Status UNV Insulin Human Lispro (HumaLOG) 0-5 UNITS TIDWMEALS SQ ; Start 05/26/21 at 17:00 Dextrose (Dextrose 50%-Water Syringe) 12.5 gm PRN Q15MIN PRN IV SEE COMMENTS; Start 05/26/21 at 12:45 Levetiracetam (Keppra) 500 mg BID PO ; Start 05/26/21 at 14:00; Status Cancel Lactobacillus Rhamnosus (Culturelle) 1 cap BID PO Last administered on 05/27/21at 09:50; Start 05/26/21 at 21:00 Levetiracetam 100 ml @ 400 mls/hr Q12HR IV Last administered on 05/27/21at 09:49; Start 05/26/21 at 14:00 Epoetin Catalino-epbx (RETACRIT for ESRD PTS) 10,000 unit MoWeFr@2100 SQ Last administered on 05/26/21at 21:39; Start 05/26/21 at 21:00 Vancomycin HCl (Vancomycin Random Level) 1 each 1X ONCE MC Last administered on 05/27/21at 05:00; Start 05/27/21 at 05:00; Stop 05/27/21 at 05:01; Status DC Info (PHARMACY MONITORING -- do not chart) 1 each PRN DAILY PRN MC SEE COMMENTS; Start 05/26/21 at 18:30 Vancomycin HCl (Vancomycin Random Level) 1 each 1X ONCE MC ; Start 05/31/21 at 06:00; Stop 05/31/21 at 06:01 Active Scripts Active Metoprolol Succinate 50 Mg Tab.er.24h 50 Mg PO DAILY 30 Days Levetiracetam 500 Mg Tablet 500 Mg PO BID 30 Days Reported Trazodone Hcl 50 Mg Tablet 1 Tab PO QHS Xultophy 100 Unit-3.6 mg/ml (Insulin Degludec/Liraglutide) 3 Ml Insuln.pen 24 Ml SQ HS Vitamin D (Cholecalciferol (Vitamin D3)) 1,000 Unit Capsule 1 Cap PO DAILY Atorvastatin Calcium 10 Mg Tablet 10 Mg PO DAILY Sildenafil (Sildenafil Citrate) 20 Mg Tablet 20 Mg PO TID Zetia (Ezetimibe) 10 Mg Tablet 10 Mg PO DAILY Omeprazole 40 Mg Capsule. 40 Mg PO DAILY Topiramate 100 Mg Tablet 100 Mg PO BID Promethazine Hcl 25 Mg Tablet 25 Mg PO Q6H PRN B-12 (Cyanocobalamin (Vitamin B-12)) 1,000 Mcg Tablet 1,000 Mcg PO DAILY Vascepa (Icosapent Ethyl) 1 Gm Capsule 2 Cap PO BID Aspirin Ec (Aspirin) 81 Mg Tablet.dr 81 Mg PO DAILY Duloxetine Hcl 60 Mg Capsule.dr 60 Mg PO HS Lyrica (Pregabalin) 225 Mg Capsule 225 Mg PO BID Losartan-Hctz 100-25 Mg Tab (Losartan/Hydrochlorothiazide) 1 Each Tablet 25 Mg PO DAILY Mirtazapine 45 Mg Tablet 45 Mg PO HS Amlodipine Besylate 5 Mg Tablet 5 Mg PO DAILY Allergies Allergies: Coded Allergies: No Known Drug Allergies (Unverified , 01/23/14) ROS Review of System Not reliably obtained, but negative for fever, chills, weight loss, shortness of breath, chest pain, indigestion, hematochezia, melena, and dysuria. Full 14- point review of systems is negative. Physical Exam Physical Examination General: Well-developed, well-nourished, white male, in no acute distress HEENT: Normocephalic andatraumatic.Temporal arteriespulsatile and nontender. Neck: Supple without bruit, no meningismus Musculoskeletal: Stability:see neurologic. Gait exam:see neurologic. Tone:see neurologic.Strength:see neurologic. Neurological: Mental Status: orientation, memory, attention span/concentration, language, fund of knowledge: Eyes are open, he can tell me his name, otherwise nonverbal and does not follow commands. Cranial Nerves:Pupils equal and reactive to light, extraocular movements areintact, visual mills are full to confrontation. Facial sensation is normal. There is no facial asymmetry. Vestibulo-ocular reflex is intact. Palate elevates and tongue protrudes in midline. All other cranial related problems are negative except as mentioned before.Reflexes:0+ and symmetric with flexor plantar response on the right, left foot is partially amputated. Motor:3-/5 strength with normal tone and bulk. Coordination and gait:not cooperative. Sensory:suspect stocking loss given pinprick response. Vitals VITALS Vital Signs Date Time Temp Pulse Resp B/P (MAP) Pulse Ox O2 Delivery O2 Flow Rate FiO2 05/27/21 11:00 97.3 106 17 154/76 (102) 100 Room Air 97.3 05/27/21 08:00 2.0 Labs Labs Laboratory Tests Test 05/26/21 01:30 05/26/21 06:00 05/26/21 08:16 05/26/21 11:41 White Blood Count 7.3 x10^3/uL (4.0-11.0) Red Blood Count 2.26 x10^6/uL (4.30-5.70) Hemoglobin 6.0 g/dL (13.0-17.5) Hematocrit 18.6 % (39.0-53.0) Mean Corpuscular Volume 82 fL (79-100) Mean Corpuscular Hemoglobin 27 pg (25-35) Mean Corpuscular Hemoglobin Concent 32 g/dL (31-37) Red Cell Distribution Width 24.4 % (11.5-14.5) Platelet Count 107 x10^3/uL (140-400) Neutrophils (%) (Auto) 57 % (31-73) Lymphocytes (%) (Auto) 23 % (24-48) Monocytes (%) (Auto) 18 % (0-9) Eosinophils (%) (Auto) 2 % (0-3) Basophils (%) (Auto) 0 % (0-3) Neutrophils # (Auto) 4.2 x10^3/uL (1.8-7.7) Lymphocytes # (Auto) 1.7 x10^3/uL (1.0-4.8) Monocytes # (Auto) 1.3 x10^3/uL (0.0-1.1) Eosinophils # (Auto) 0.1 x10^3/uL (0.0-0.7) Basophils # (Auto) 0.0 x10^3/uL (0.0-0.2) Segmented Neutrophils % 62 % (35-66) Lymphocytes % 26 % (24-48) Monocytes % 9 % (0-10) Eosinophils % 2 % (0-5) Basophils % 1 % (0-3) Nucleated Red Blood Cells 2 Platelet Estimate Decreased (ADEQUATE) Polychromasia Slight Hypochromasia Slight Poikilocytosis Slight Anisocytosis Mod Ovalocytes Occ Helmet Cells Occ Erythrocyte Sedimentation Rate 54 (0-15) Prothrombin Time 15.6 SEC (11.7-14.0) Prothromb Time International Ratio 1.2 (0.8-1.1) Activated Partial Thromboplast Time 42 SEC (24-38) Sodium Level 140 mmol/L (136-145) Potassium Level 3.3 mmol/L (3.5-5.1) Chloride Level 100 mmol/L (98-107) Carbon Dioxide Level 28 mmol/L (21-32) Anion Gap 12 (6-14) Blood Urea Nitrogen 36 mg/dL (8-26) Creatinine 5.8 mg/dL (0.7-1.3) Estimated GFR (Cockcroft-Gault) 10.2 BUN/Creatinine Ratio 6 (6-20) Glucose Level 197 mg/dL (70-99) Lactic Acid Level 1.5 mmol/L (0.4-2.0) Calcium Level 8.1 mg/dL (8.5-10.1) Magnesium Level 1.9 mg/dL (1.8-2.4) Total Bilirubin 0.8 mg/dL (0.2-1.0) Aspartate Amino Transf (AST/SGOT) 21 U/L (15-37) Alanine Aminotransferase (ALT/SGPT) 12 U/L (16-63) Alkaline Phosphatase 99 U/L (46-116) C-Reactive Protein, Quantitative 149.6 mg/L (0-3.3) Total Protein 7.1 g/dL (6.4-8.2) Albumin 2.3 g/dL (3.4-5.0) Albumin/Globulin Ratio 0.5 (1.0-1.7) Hepatitis B Surface Antigen Nonreactive (Nonreactive) Hepatitis B Surface Antibody Reactive SARS-CoV-2 Antigen (Rapid) Positive (NEGATIVE) Glucose (Fingerstick) 158 mg/dL (70-99) 139 mg/dL (70-99) Test 05/26/21 20:14 05/27/21 06:35 05/27/21 07:29 05/27/21 09:32 Glucose (Fingerstick) 128 mg/dL (70-99) 133 mg/dL (70-99) 129 mg/dL (70-99) White Blood Count 7.3 x10^3/uL (4.0-11.0) Red Blood Count 3.14 x10^6/uL (4.30-5.70) Hemoglobin 8.6 g/dL (13.0-17.5) Hematocrit 26.9 % (39.0-53.0) Mean Corpuscular Volume 86 fL (79-100) Mean Corpuscular Hemoglobin 27 pg (25-35) Mean Corpuscular Hemoglobin Concent 32 g/dL (31-37) Red Cell Distribution Width 23.7 % (11.5-14.5) Platelet Count 124 x10^3/uL (140-400) Random Vancomycin Level 26.1 mcg/mL Test 05/27/21 11:41 Glucose (Fingerstick) 135 mg/dL (70-99) Laboratory Tests Test 05/26/21 20:14 05/27/21 06:35 05/27/21 07:29 05/27/21 09:32 Glucose (Fingerstick) 128 mg/dL (70-99) 133 mg/dL (70-99) 129 mg/dL (70-99) White Blood Count 7.3 x10^3/uL (4.0-11.0) Red Blood Count 3.14 x10^6/uL (4.30-5.70) Hemoglobin 8.6 g/dL (13.0-17.5) Hematocrit 26.9 % (39.0-53.0) Mean Corpuscular Volume 86 fL (79-100) Mean Corpuscular Hemoglobin 27 pg (25-35) Mean Corpuscular Hemoglobin Concent 32 g/dL (31-37) Red Cell Distribution Width 23.7 % (11.5-14.5) Platelet Count 124 x10^3/uL (140-400) Random Vancomycin Level 26.1 mcg/mL Test 05/27/21 11:41 Glucose (Fingerstick) 135 mg/dL (70-99) Images Images CT HEAD AND C-SPINE WO History: Reason: altered mental status / Spl. Instructions: / History: . Pain Comparison: September 13, 2016 Technique: Noncontrast CT imaging was performed of the head and cervical spine. Coronal and sagittal reconstructions were performed. Exposure: One or more of the following individualized dose reduction techniques were utilized for this examination: 1. Automated exposure control 2. Adjustment of the mA and/or kV according to patient size 3. Use of iterative reconstruction technique. Findings: Head CT: No intracranial hemorrhage. No mass effect. No hydrocephalus. Left posterior parietal encephalomalacia likely related to prior infarct. Chronic right basal ganglia lacunar infarct. Ex vacuo dilatation of the right lateral ventricle. Mild foci of decreased attenuation within the hemispheric white matter, most often due to chronic microvascular ischemia. Imaged orbits are unremarkable. Imaged paranasal sinuses and mastoid air cells are clear. No acute calvarial fracture. Cervical spine CT: Normal vertebral body height and alignment. No fracture. Moderate C5-C6 degenerative disc changes. Mild apical septal thickening. Secretions within the upper trachea. Multifocal carious dentition and periodontal disease. Impression: Head CT: 1. No acute intracranial abnormality. 2. Chronic right basal ganglia and left parietal infarcts. Cervical spine CT: 1. No acute fracture or subluxation of the cervical spine. 2. Multilevel cervical spondylosis most prominent C5-C6. 3. Biapical septal thickening, may indicate mild pulmonary edema. Assessment/Plan Assessment/Plan Impression: Metabolic encephalopathy No evidence of recurrence of subdural hematoma Chronic right basal ganglia and left parietal infarcts. History of psychogenic nonepileptic seizures, still taking levetiracetam Anemia, end-stage renal disease on dialysis, left foot infection, COVID-19 infection, probable sepsis, malnutrition hypotension, diabetes with neuropathy Recommendations: Continue to treat medical issues No additional neurological investigations required Thank you for letting me help with the patient's care PAOLA DICK MD May 27, 2021 12:35
[2021-05-27 15:00] VITALS: BP 88/53
[2021-05-27 19:20] VITALS: BP 142/79
[2021-05-27] MEDS: DULoxetine HCL 30 MG CAPSULE.DR PO SCH (22:04)
[2021-05-27] MEDS: traZODone 50 MG TABLET. PO SCH (22:04)
[2021-05-27] MEDS: MIRTAZAPINE 15 MG TABLET PO SCH (22:05)
[2021-05-27 23:29] VITALS: BP 147/77
[2021-05-28 03:39] VITALS: BP 140/78
--- NOTE | 2021-05-28 04:35 | NUR ---
Pr had 10 beat run of Vtach - Dr Valle made aware - orders received to add mag to labs and consult cardiology. Orders placed. Will continue to monitor pt status closely
[2021-05-28 05:05] LABS: HEMATOCRIT 29.2 % (39.0-53.0); HEMOGLOBIN 9.2 g/dL (13.0-17.5); RED BLOOD COUNT 3.39 x10^6/uL (4.30-5.70); RED CELL DISTRIBUTION WIDTH 23.3 % (11.5-14.5); WHITE BLOOD COUNT 8.9 x10^3/uL (4.0-11.0)
[2021-05-28 05:28] LABS: ALBUMIN 2.2 g/dL (3.4-5.0); ALBUMIN/GLOBULIN RATIO 0.5 (1.0-1.7); CALCIUM 7.9 mg/dL (8.5-10.1); CREATININE 5.8 mg/dL (0.7-1.3); GFR 10.2; POTASSIUM 3.5 mmol/L (3.5-5.1); TOTAL BILIRUBIN 1.1 mg/dL (0.2-1.0)
[2021-05-28] MEDS: PIPERACILLIN/TAZOBACTAM 2.25 GM in IV NORMAL SALINE 50ML 50 ML IV SCH ×3 (06:14→22:13)
[2021-05-28 07:00] VITALS: BP 157/89
[2021-05-28] MEDS: INSULIN LISPRO 300 UNITS/3 ML VIAL. SQ SCH ×3 (08:00→16:56)
--- NOTE | 2021-05-28 08:12 | PDOC ---
Infectious Disease Note Subjective Subjective Patient is feeling better ROS ROS No nausea vomiting diarrhea chest pain shortness of Vital Sign Vital Signs Vital Signs Date Time Temp Pulse Resp B/P (MAP) Pulse Ox O2 Delivery O2 Flow Rate FiO2 05/28/21 03:39 97.5 83 20 140/78 (98) 97 Nasal Cannula 2.0 97.5 Physical Exam PHYSICAL EXAM GENERAL: Awake gentleman, not in distress. VITAL SIGNS: Stable HEENT: Both pupils are round and reacting. No conjunctival lesion. No lesion in the mouth. NECK: Supple. No JVP, no lymphadenopathy. LUNGS: Clear. HEART: S1, S2, regular. ABDOMEN: Soft, nontender. No organomegaly. EXTREMITIES: There are multiple superficial wounds on to the extremities. Muscle wasting present. full-length TMA incision has dehisced and some purulent drainage coming out NEUROLOGIC: The patient is awake, try to say something, mumbles few words, occasional appropriate nodding. Labs Lab Laboratory Tests Test 05/27/21 09:32 05/27/21 11:41 05/27/21 16:52 05/27/21 21:28 Glucose (Fingerstick) 129 mg/dL (70-99) 135 mg/dL (70-99) 158 mg/dL (70-99) 180 mg/dL (70-99) Test 05/28/21 04:45 White Blood Count 8.9 x10^3/uL (4.0-11.0) Red Blood Count 3.39 x10^6/uL (4.30-5.70) Hemoglobin 9.2 g/dL (13.0-17.5) Hematocrit 29.2 % (39.0-53.0) Mean Corpuscular Volume 86 fL (79-100) Mean Corpuscular Hemoglobin 27 pg (25-35) Mean Corpuscular Hemoglobin Concent 31 g/dL (31-37) Red Cell Distribution Width 23.3 % (11.5-14.5) Platelet Count 135 x10^3/uL (140-400) Sodium Level 141 mmol/L (136-145) Potassium Level 3.5 mmol/L (3.5-5.1) Chloride Level 100 mmol/L (98-107) Carbon Dioxide Level 26 mmol/L (21-32) Anion Gap 15 (6-14) Blood Urea Nitrogen 35 mg/dL (8-26) Creatinine 5.8 mg/dL (0.7-1.3) Estimated GFR (Cockcroft-Gault) 10.2 BUN/Creatinine Ratio 6 (6-20) Glucose Level 189 mg/dL (70-99) Calcium Level 7.9 mg/dL (8.5-10.1) Magnesium Level 2.2 mg/dL (1.8-2.4) Total Bilirubin 1.1 mg/dL (0.2-1.0) Aspartate Amino Transf (AST/SGOT) 17 U/L (15-37) Alanine Aminotransferase (ALT/SGPT) 15 U/L (16-63) Alkaline Phosphatase 98 U/L (46-116) Total Protein 7.0 g/dL (6.4-8.2) Albumin 2.2 g/dL (3.4-5.0) Albumin/Globulin Ratio 0.5 (1.0-1.7) Micro GRAM STAIN Final Final GRAM NEGATIVE RODS:MANY SQUAMOUS EPI CELL:NONE SEEN PMN (WBCs):RARE Unless otherwise specified, Testing Performed by: [address] [id number] For Inquires, the Physician may contact the Microbiology department at [phone] ANAEROBIC-AEROBIC CULTURE PENDING Objective Assessment IMPRESSION: 1. Encephalopathy. 2. COVID-19 positive. 3. Fever. 4. Left foot infection. 5. End-stage renal disease, on hemodialysis. 6. Seizure disorder. 7. Coronary artery disease. 8. Hypertension. 9. Diabetes. Plan Plan of Care Continue antibiotics Continue local care wound VAC MACHELLE COPE MD May 28, 2021 08:12
--- NOTE | 2021-05-28 08:48 | PDOC ---
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 History of psychogenic nonepileptic seizures, still taking levetiracetam Anemia, end-stage renal disease on dialysis, left foot infection, COVID-19 infection, probable sepsis, malnutrition hypotension, diabetes with neuropathy Plan Continue to treat medical issues No additional neurological investigations required Discussed with Dr. Valle Neurology will see as needed over the weekend Subjective No complaints Objective Vital Signs Date Time Temp Pulse Resp B/P (MAP) Pulse Ox O2 Delivery O2 Flow Rate FiO2 05/28/21 03:39 97.5 83 20 140/78 (98) 97 Nasal Cannula 2.0 97.5 Intake and Output 05/28/21 07:00 Intake Total 240 ml Balance 240 ml Intake Oral 240 ml # Voids 1 # Bowel Movements 2 PHYSICAL EXAM Alert. Oriented to person, thinks he is at home, definitely more talkative. PERRL. EOMI. CN: no focal findings. Muscle tone: normal. Muscle strength: 3/5 DTR: 0+ Plantar reflex: Flexor Gait: not examined in bed. Sensory exam: Stocking loss. No cerebellar signs elicited. Review of Relevant I have reviewed the following items yifan (where applicable) has been applied. Labs Laboratory Tests Test 05/26/21 11:41 05/26/21 20:14 05/27/21 06:35 05/27/21 07:29 Glucose (Fingerstick) 139 mg/dL (70-99) 128 mg/dL (70-99) 133 mg/dL (70-99) White Blood Count 7.3 x10^3/uL (4.0-11.0) Red Blood Count 3.14 x10^6/uL (4.30-5.70) Hemoglobin 8.6 g/dL (13.0-17.5) Hematocrit 26.9 % (39.0-53.0) Mean Corpuscular Volume 86 fL (79-100) Mean Corpuscular Hemoglobin 27 pg (25-35) Mean Corpuscular Hemoglobin Concent 32 g/dL (31-37) Red Cell Distribution Width 23.7 % (11.5-14.5) Platelet Count 124 x10^3/uL (140-400) Random Vancomycin Level 26.1 mcg/mL Test 05/27/21 09:32 05/27/21 11:41 05/27/21 16:52 05/27/21 21:28 Glucose (Fingerstick) 129 mg/dL (70-99) 135 mg/dL (70-99) 158 mg/dL (70-99) 180 mg/dL (70-99) Test 05/28/21 04:45 White Blood Count 8.9 x10^3/uL (4.0-11.0) Red Blood Count 3.39 x10^6/uL (4.30-5.70) Hemoglobin 9.2 g/dL (13.0-17.5) Hematocrit 29.2 % (39.0-53.0) Mean Corpuscular Volume 86 fL (79-100) Mean Corpuscular Hemoglobin 27 pg (25-35) Mean Corpuscular Hemoglobin Concent 31 g/dL (31-37) Red Cell Distribution Width 23.3 % (11.5-14.5) Platelet Count 135 x10^3/uL (140-400) Sodium Level 141 mmol/L (136-145) Potassium Level 3.5 mmol/L (3.5-5.1) Chloride Level 100 mmol/L (98-107) Carbon Dioxide Level 26 mmol/L (21-32) Anion Gap 15 (6-14) Blood Urea Nitrogen 35 mg/dL (8-26) Creatinine 5.8 mg/dL (0.7-1.3) Estimated GFR (Cockcroft-Gault) 10.2 BUN/Creatinine Ratio 6 (6-20) Glucose Level 189 mg/dL (70-99) Calcium Level 7.9 mg/dL (8.5-10.1) Magnesium Level 2.2 mg/dL (1.8-2.4) Total Bilirubin 1.1 mg/dL (0.2-1.0) Aspartate Amino Transf (AST/SGOT) 17 U/L (15-37) Alanine Aminotransferase (ALT/SGPT) 15 U/L (16-63) Alkaline Phosphatase 98 U/L (46-116) Total Protein 7.0 g/dL (6.4-8.2) Albumin 2.2 g/dL (3.4-5.0) Albumin/Globulin Ratio 0.5 (1.0-1.7) Laboratory Tests Test 05/27/21 09:32 05/27/21 11:41 05/27/21 16:52 05/27/21 21:28 Glucose (Fingerstick) 129 mg/dL (70-99) 135 mg/dL (70-99) 158 mg/dL (70-99) 180 mg/dL (70-99) Test 05/28/21 04:45 White Blood Count 8.9 x10^3/uL (4.0-11.0) Red Blood Count 3.39 x10^6/uL (4.30-5.70) Hemoglobin 9.2 g/dL (13.0-17.5) Hematocrit 29.2 % (39.0-53.0) Mean Corpuscular Volume 86 fL (79-100) Mean Corpuscular Hemoglobin 27 pg (25-35) Mean Corpuscular Hemoglobin Concent 31 g/dL (31-37) Red Cell Distribution Width 23.3 % (11.5-14.5) Platelet Count 135 x10^3/uL (140-400) Sodium Level 141 mmol/L (136-145) Potassium Level 3.5 mmol/L (3.5-5.1) Chloride Level 100 mmol/L (98-107) Carbon Dioxide Level 26 mmol/L (21-32) Anion Gap 15 (6-14) Blood Urea Nitrogen 35 mg/dL (8-26) Creatinine 5.8 mg/dL (0.7-1.3) Estimated GFR (Cockcroft-Gault) 10.2 BUN/Creatinine Ratio 6 (6-20) Glucose Level 189 mg/dL (70-99) Calcium Level 7.9 mg/dL (8.5-10.1) Magnesium Level 2.2 mg/dL (1.8-2.4) Total Bilirubin 1.1 mg/dL (0.2-1.0) Aspartate Amino Transf (AST/SGOT) 17 U/L (15-37) Alanine Aminotransferase (ALT/SGPT) 15 U/L (16-63) Alkaline Phosphatase 98 U/L (46-116) Total Protein 7.0 g/dL (6.4-8.2) Albumin 2.2 g/dL (3.4-5.0) Albumin/Globulin Ratio 0.5 (1.0-1.7) Microbiology 05/26/21 Blood Culture - Preliminary, Resulted NO GROWTH AFTER 2 DAYS 05/26/21 Gram Stain - Final, Resulted 05/26/21 Aerobic and Anaerobic Culture, Resulted Pending Medications Current Medications Sodium Chloride 1,000 ml @ 1,000 mls/hr 1X ONCE IV ; Start 05/26/21 at 01:30; Stop 05/26/21 at 02:29; Status DC Piperacillin Sod/ Tazobactam Sod (Zosyn Per Pharmacy) 1 each PRN DAILY PRN MC SEE COMMENTS; Start 05/26/21 at 01:30 Piperacillin Sod/ Tazobactam Sod 3.375 gm/Sodium Chloride 50 ml @ 100 mls/hr 1X ONCE IV Last administered on 05/26/21at 03:25; Start 05/26/21 at 02:15; Stop 05/26/21 at 02:44; Status DC Vancomycin HCl (Vanco Per Pharmacy) 1 each PRN DAILY PRN MC SEE COMMENTS Last administered on 05/27/21at 09:27; Start 05/26/21 at 03:15 Sodium Chloride 500 ml @ 500 mls/hr 1X ONCE IV Last administered on 05/26/21at 03:25; Start 05/26/21 at 03:30; Stop 05/26/21 at 04:29; Status DC Ondansetron HCl (Zofran) 4 mg PRN Q8HRS PRN IVP NAUSEA/VOMITING; Start 05/26/21 at 03:30; Stop 05/27/21 at 03:29; Status DC Acetaminophen (Tylenol) 650 mg PRN Q4HRS PRN PO FEVER > 100.3'F; Start 05/26/21 at 03:30; Stop 05/27/21 at 03:29; Status DC Insulin Human Lispro (HumaLOG) 0-5 UNITS TIDWMEALS SQ Last administered on at 09:09; Start 05/26/21 at 08:00; Stop 05/26/21 at 12:46; Status DC Dextrose (Dextrose 50%-Water Syringe) 12.5 gm PRN Q15MIN PRN IV SEE COMMENTS; Start 05/26/21 at 03:30; Status Cancel Vancomycin HCl 1.75 gm/Sodium Chloride 500 ml @ 250 mls/hr 1X ONCE IV Last administered on 05/26/21at 05:47; Start 05/26/21 at 06:00; Stop 05/26/21 at 07:59; Status DC Piperacillin Sod/ Tazobactam Sod 2.25 gm/Sodium Chloride 50 ml @ 100 mls/hr Q8HRS IV Last administered on 05/28/21at 06:14; Start 05/26/21 at 08:00 Sodium Hypochlorite (Dakin'S 1/4 Strength) 1 lópez BID TP Last administered on 05/27/21at 21:00; Start 05/26/21 at 11:00 Aspirin (Ecotrin) 81 mg DAILY PO Last administered on 05/27/21at 09:50; Start 05/26/21 at 14:00 Atorvastatin Calcium (Lipitor) 10 mg DAILY PO Last administered on 05/27/21at 09:50; Start 05/26/21 at 14:00 Cyanocobalamin (Vitamin B-12) 1,000 mcg DAILY PO Last administered on 05/27/21at 09:49; Start 05/27/21 at 09:00 EZETIMIBE (Zetia) 10 mg DAILY PO Last administered on 05/27/21at 09:49; Start 05/26/21 at 14:00 Topiramate (Topamax) 100 mg BID PO Last administered on 05/27/21at 22:05; Start 05/26/21 at 14:00 Trazodone HCl (Desyrel) 50 mg QHS PO Last administered on 05/27/21at 22:04; Start 05/26/21 at 21:00 Vitamin D (Vitamin D3) 1,000 unit DAILY PO Last administered on 05/27/21 09:49; Start 05/26/21 at 14:00 Duloxetine HCl (Cymbalta) 60 mg HS PO Last administered on 05/27/21at 22:04; Start 05/26/21 at 21:00 Non-Formulary Medication (Icosapent Ethyl (Vascepa)) 2 cap BID PO ; Start 05/26/21 at 21:00; Status UNV Mirtazapine (Remeron) 45 mg QHS PO Last administered on 05/27/21at 22:05; Start 05/26/21 at 21:00 Pantoprazole Sodium (Protonix) 40 mg DAILYAC PO Last administered on 05/27/21at 09:49; Start 05/26/21 at 14:00 Pregabalin (Lyrica) 225 mg BID PO Last administered on 05/27/21at 22:04; Start 05/26/21 at 14:00 Promethazine HCl (Phenergan) 25 mg PRN Q6HRS PRN PO NAUSEA/VOMITING; Start 05/26/21 at 13:00 Levetiracetam 100 ml @ 400 mls/hr Q12HR IV ; Start 05/26/21 at 21:00; Status UNV Insulin Human Lispro (HumaLOG) 0-5 UNITS TIDWMEALS SQ ; Start 05/26/21 at 17:00 Dextrose (Dextrose 50%-Water Syringe) 12.5 gm PRN Q15MIN PRN IV SEE COMMENTS; Start 05/26/21 at 12:45 Levetiracetam (Keppra) 500 mg BID PO ; Start 05/26/21 at 14:00; Status Cancel Lactobacillus Rhamnosus (Culturelle) 1 cap BID PO Last administered on 05/27/21at 22:05; Start 05/26/21 at 21:00 Levetiracetam 100 ml @ 400 mls/hr Q12HR IV Last administered on 05/27/21at 22:02; Start 05/26/21 at 14:00 Epoetin Catalino-epbx (RETACRIT for ESRD PTS) 10,000 unit MoWeFr@2100 SQ Last administered on 05/26/21at 21:39; Start 05/26/21 at 21:00 Vancomycin HCl (Vancomycin Random Level) 1 each 1X ONCE MC Last administered on 05/27/21at 05:00; Start 05/27/21 at 05:00; Stop 05/27/21 at 05:01; Status DC Info (PHARMACY MONITORING -- do not chart) 1 each PRN DAILY PRN MC SEE COMMENTS; Start 05/26/21 at 18:30 Vancomycin HCl (Vancomycin Random Level) 1 each 1X ONCE MC ; Start 05/29/21 at 06:00; Stop 1/15/22 at 06:01 Active Scripts Active Metoprolol Succinate 50 Mg Tab.er.24h 50 Mg PO DAILY 30 Days Levetiracetam 500 Mg Tablet 500 Mg PO BID 30 Days Reported Trazodone Hcl 50 Mg Tablet 1 Tab PO QHS Xultophy 100 Unit-3.6 mg/ml (Insulin Degludec/Liraglutide) 3 Ml Insuln.pen 24 Ml SQ HS Vitamin D (Cholecalciferol (Vitamin D3)) 1,000 Unit Capsule 1 Cap PO DAILY Atorvastatin Calcium 10 Mg Tablet 10 Mg PO DAILY Sildenafil (Sildenafil Citrate) 20 Mg Tablet 20 Mg PO TID Zetia (Ezetimibe) 10 Mg Tablet 10 Mg PO DAILY Omeprazole 40 Mg Capsule.dr 40 Mg PO DAILY Topiramate 100 Mg Tablet 100 Mg PO BID Promethazine Hcl 25 Mg Tablet 25 Mg PO Q6H PRN B-12 (Cyanocobalamin (Vitamin B-12)) 1,000 Mcg Tablet 1,000 Mcg PO DAILY Vascepa (Icosapent Ethyl) 1 Gm Capsule 2 Cap PO BID Aspirin Ec (Aspirin) 81 Mg Tablet.dr 81 Mg PO DAILY Duloxetine Hcl 60 Mg Capsule.dr 60 Mg PO HS Lyrica (Pregabalin) 225 Mg Capsule 225 Mg PO BID Losartan-Hctz 100-25 Mg Tab (Losartan/Hydrochlorothiazide) 1 Each Tablet 25 Mg PO DAILY Mirtazapine 45 Mg Tablet 45 Mg PO HS Amlodipine Besylate 5 Mg Tablet 5 Mg PO DAILY Vitals/I & O Vital Sign - Last 24 Hours 05/27/21 05/27/21 05/27/21 05/27/21 11:00 15:00 19:03 19:20 Temp 97.3 96.8 97.6 97.3 96.8 97.6 Pulse 106 76 90 Resp 17 17 22 B/P (MAP) 154/76 (102) 88/53 (65) 142/79 (100) Pulse Ox 100 100 99 O2 Delivery Room Air Room Air Nasal Cannula Nasal Cannula O2 Flow Rate 2.0 2.0 05/27/21 05/28/21 23:29 03:39 Temp 97.2 97.5 97.2 97.5 Pulse 84 83 Resp 18 20 B/P (MAP) 147/77 (100) 140/78 (98) Pulse Ox 98 97 O2 Delivery Nasal Cannula Nasal Cannula O2 Flow Rate 2.0 2.0 Intake and Output 05/27/21 05/27/21 05/28/21 15:00 23:00 07:00 Intake Total 0 ml 240 ml Balance 0 ml 240 ml Justicifation of Admission Dx: Justifications for Admission: Justification of Admission Dx: N/A PAOLA DICK MD May 28, 2021 08:48
[2021-05-28] MEDS: SODIUM HYPOCHLORITE 0.125% 473 ML BOTTLE. TP SCH ×2 (09:00→21:00)
[2021-05-28] MEDS: LACTOBACILLUS RHAMNOSUS GG 1 CAPSULE. PO SCH ×2 (09:00→21:42)
[2021-05-28] MEDS: PREGABALIN 75 MG CAPSULE PO SCH ×2 (10:04→21:41)
[2021-05-28] MEDS: EZETIMIBE 10 MG TABLET. PO SCH (10:04)
[2021-05-28] MEDS: CYANOCOBALAMIN (VITAMIN B-12) 1,000 MCG TABLET. PO SCH (10:05)
[2021-05-28] MEDS: TOPIRAMATE 100 MG TABLET. PO SCH ×2 (10:05→21:42)
[2021-05-28] MEDS: ATORVASTATIN CALCIUM 10 MG TABLET. PO SCH (10:05)
[2021-05-28] MEDS: PANTOPRAZOLE 40 MG TABLET.DR. PO SCH (10:05)
[2021-05-28] MEDS: CHOLECALCIFEROL (VITAMIN D3) 1,000 UNIT TABLET PO SCH (10:05)
[2021-05-28] MEDS: ASPIRIN ENTERIC COATED 81 MG TABLET.DR. PO SCH (10:05)
[2021-05-28 11:00] VITALS: BP 144/77
--- NOTE | 2021-05-28 11:00 | PDOC ---
Renal-Progress Notes Subjective Notes Notes STILL SLEEPY History of Present Illness Hx of present illness 10 BEAT RUN VTACH NOTED Vitals Vitals Vital Signs Date Time Temp Pulse Resp B/P (MAP) Pulse Ox O2 Delivery O2 Flow Rate FiO2 05/28/21 07:00 97.0 107 20 157/89 (111) 94 Nasal Cannula 2.0 97.0 Weight Weight [ ] I.O. Intake and Output Intake and Output 05/28/21 07:00 Intake Total 240 ml Balance 240 ml Intake Oral 240 ml # Voids 1 # Bowel Movements 2 Labs Labs Laboratory Tests Test 05/27/21 11:41 05/27/21 16:52 05/27/21 21:28 05/28/21 04:45 Glucose (Fingerstick) 135 mg/dL (70-99) 158 mg/dL (70-99) 180 mg/dL (70-99) White Blood Count 8.9 x10^3/uL (4.0-11.0) Red Blood Count 3.39 x10^6/uL (4.30-5.70) Hemoglobin 9.2 g/dL (13.0-17.5) Hematocrit 29.2 % (39.0-53.0) Mean Corpuscular Volume 86 fL (79-100) Mean Corpuscular Hemoglobin 27 pg (25-35) Mean Corpuscular Hemoglobin Concent 31 g/dL (31-37) Red Cell Distribution Width 23.3 % (11.5-14.5) Platelet Count 135 x10^3/uL (140-400) Sodium Level 141 mmol/L (136-145) Potassium Level 3.5 mmol/L (3.5-5.1) Chloride Level 100 mmol/L (98-107) Carbon Dioxide Level 26 mmol/L (21-32) Anion Gap 15 (6-14) Blood Urea Nitrogen 35 mg/dL (8-26) Creatinine 5.8 mg/dL (0.7-1.3) Estimated GFR (Cockcroft-Gault) 10.2 BUN/Creatinine Ratio 6 (6-20) Glucose Level 189 mg/dL (70-99) Calcium Level 7.9 mg/dL (8.5-10.1) Magnesium Level 2.2 mg/dL (1.8-2.4) Total Bilirubin 1.1 mg/dL (0.2-1.0) Aspartate Amino Transf (AST/SGOT) 17 U/L (15-37) Alanine Aminotransferase (ALT/SGPT) 15 U/L (16-63) Alkaline Phosphatase 98 U/L (46-116) Total Protein 7.0 g/dL (6.4-8.2) Albumin 2.2 g/dL (3.4-5.0) Albumin/Globulin Ratio 0.5 (1.0-1.7) Test 05/28/21 08:48 Glucose (Fingerstick) 174 mg/dL (70-99) Micro Micro Microbiology 05/26/21 Blood Culture - Preliminary, Resulted NO GROWTH AFTER 2 DAYS 05/26/21 Gram Stain - Final, Resulted 05/26/21 Aerobic and Anaerobic Culture, Resulted Pending Review of Systems Constitutional: yes: other (CONFUSED) Physical Exam General Appearance: no apparent distress Skin: warm Respiratory: decreased breath sounds Heart: S1S2 Abdomen: soft, bowel sounds present Genitourinary: bladder flat Neurology: confused Assessment Assessment IMP ESRD-MWF ANEMIA DM II-LABILE BG ENCEPHALOPATHY HTN HX LEFT TMA STUMP WOUND PROB SEPSIS HYPOTENSION-CORRECTED MALNUTRITION CARDIAC ARRHYTHMIA PLAN HD TODAY UF TO TW 4K DIALYSATE CONT RETACRIT ANTIBIOTICS WILL NEED WOUND CARE HE IS VERY ILL HAS HAD PROGRESSIVE HEALTH DECLINE IN LAST ONE YEAR POOR PROGNOSIS PROB NEEDS CARDIOLOGY EVAL WILL FOLLOW NUBIA PATTON MD May 28, 2021 11:00
[2021-05-28] MEDS ORDERED: IV NORMAL SALINE 1000ML BAG 1,000 ML IV PRN ×2 (11:45)
[2021-05-28] MEDS ORDERED: 0.9 % SODIUM CHLORIDE 10 ML DISP.SYRIN. IV PRN ×2 (11:45)
[2021-05-28] MEDS ORDERED: DIALYSIS PATIENT. MC PRN ×2 (11:45)
--- NOTE | 2021-05-28 11:57 | NUR ---
SW following. Discussed with RN, pt from [facility], 2L, COVID-19 positive. PT/OT ordered. [facility] will have to resubmit for auth for pt to return. SW will continue to follow.
--- NOTE | 2021-05-28 13:27 | PDOC2 ---
TEJAL GUO WEED BURNER 05/28/21 1327: CARDIAC CONSULT DATE OF CONSULT Date of Consult DATE: 05/28/21 TIME: 13:05 REASON FOR CONSULT Reason for Consult: runs of [place] REFERRING PHYSICIAN Referring Physician: Leonard SOURCE Source: Chart review, Patient HISTORY OF PRESENT ILLNESS HISTORY OF PRESENT ILLNESS [facility] 55 [facility] and [facility] mental status. He was then noted with covid-19 and left foot infection. He has ESRD and received HD. Also has hx of CAD but unclear details. He is a poor historian but his mentation is much better today. Also has been noted with severe anemia and has been transfused. Consult is for arrhythmia and so far noted with AFIB rate controlled. Denies nay chest pain por palpitations. PAST MEDICAL HISTORY Past Medical History Cardiovascular: AFIB, CAD, CHF, HTN, DC, Hyperlipidemia, cardiomyopathy CENTRAL NERVOUS SYSTEM: CVA, Periperal neuropathy (Diabetic), Seizure (Psychogenic nonepileptic), subdural hematoma GI: Constipation, GERD Psych: Depression Renal/: Chronic renal failure (Dialysis), Urinary Incontinence Endocrine: Diabetes PAST SURGICAL HISTORY Past Surgical History CABG, Other (Cardiac catheterization, left foot partial amputation, left carotid endarterectomy) FAMILY HISTORY Family History: Family History Unknown SOCIAL HISTORY Lives: Correction ALLERGIES ALLERGIES: Coded Allergies: No Known Drug Allergies (Unverified , 01/23/14) ROS Review of System limited poor historian PHYSICAL EXAM General: Alert, Oriented X3, Cooperative, No acute distress HEENT: Atraumatic, Mucous membr. moist/pink Lungs: Other (diminished) Heart: Other (AFIB) Abdomen: Soft Extremities: No cyanosis, Other (Left TMA) Neuro: Normal speech, Sensation intact Psych/Mental Status: Mental status NL, Other (flat affect) MUSCULOSKELETAL: Osteoarthritic changes both hands VITALS/I&O VITALS/I&O: Vital Signs Date Time Temp Pulse Resp B/P (MAP) Pulse Ox O2 Delivery O2 Flow Rate FiO2 05/28/21 08:00 Nasal Cannula 2.0 05/28/21 07:00 97.0 107 20 157/89 (111) 94 97.0 I & O 05/27/21 05/27/21 05/28/21 15:00 23:00 07:00 Intake Total 0 ml 240 ml Balance 0 ml 240 ml LABS Lab: Laboratory Tests Test 1/13/22 16:52 05/27/21 21:28 05/28/21 04:45 05/28/21 08:48 Glucose (Fingerstick) 158 mg/dL (70-99) H 180 mg/dL (70-99) H 174 mg/dL (70-99) H White Blood Count 8.9 x10^3/uL (4.0-11.0) Red Blood Count 3.39 x10^6/uL (4.30-5.70) L Hemoglobin 9.2 g/dL (13.0-17.5) L Hematocrit 29.2 % (39.0-53.0) L Mean Corpuscular Volume 86 fL (79-100) Mean Corpuscular Hemoglobin 27 pg (25-35) Mean Corpuscular Hemoglobin Concent 31 g/dL (31-37) Red Cell Distribution Width 23.3 % (11.5-14.5) H Platelet Count 135 x10^3/uL (140-400) L Sodium Level 141 mmol/L (136-145) Potassium Level 3.5 mmol/L (3.5-5.1) Chloride Level 100 mmol/L (98-107) Carbon Dioxide Level 26 mmol/L (21-32) Anion Gap 15 (6-14) H Blood Urea Nitrogen 35 mg/dL (8-26) H Creatinine 5.8 mg/dL (0.7-1.3) H Estimated GFR (Cockcroft-Gault) 10.2 BUN/Creatinine Ratio 6 (6-20) Glucose Level 189 mg/dL (70-99) H Calcium Level 7.9 mg/dL (8.5-10.1) L Magnesium Level 2.2 mg/dL (1.8-2.4) Total Bilirubin 1.1 mg/dL (0.2-1.0) H Aspartate Amino Transferase (AST) 17 U/L (15-37) Alanine Aminotransferase (ALT) 15 U/L (16-63) L Alkaline Phosphatase 98 U/L (46-116) Total Protein 7.0 g/dL (6.4-8.2) Albumin 2.2 g/dL (3.4-5.0) L Albumin/Globulin Ratio 0.5 (1.0-1.7) L Test 05/28/21 12:08 Glucose (Fingerstick) 192 mg/dL (70-99) H Laboratory Tests 05/28/21 04:45 Laboratory Tests 05/28/21 04:45 ECHOCARDIOGRAM ECHOCARDIOGRAM <Conclusion> There is moderate to severe concentric left ventricular hypertrophy. The left ventricular systolic function is mildly decreased and the ejection fraction is 45% Tissue Doppler imaging reveals mild left ventricular diastolic dysfunction. The left atrium size is mildly dilated The right atrium size is normal. The aortic valve is mildly calcified. The aortic valve is trileaflet. The mitral valve is mildly thickened. Doppler and Color-flow revealed mild mitral regurgitation. Doppler and Color Flow revealed trace to mild tricuspid regurgitation. The pulmonic valve is not well visualized. There is a left pleural effusion. There is no evidence of significant pericardial effusion. DATE: 08/08/171901 HEART CATH HEART CATH Findings: Coronaries: The left main is normal. The LAD has a 55% stenosis in the mid to distal segment. There is very good flow through the area. The circumflex is normal. The RCA is normal. Ventriculogram: The left ventricular ejection fraction was estimated to be about 55%. There was no significant mitral insufficiency seen. No gradient was noted across the aortic valve. Impression this patient has mild coronary artery disease therefore at this time I would recommend medical treatment for this patient. DATE: 09/03/141908 ASSESSMENT/PLAN ASSESSMENT/PLAN 1. Covid-19/fever 2. Acute encephalopathy 3. ESRD 4. PAFIB: presently AFIB/flutter with intermittent episodes of abberant conduction/RBBB. rate controlled. He did have very brief x1 NSVT 5. CAD: unclear if any recent w/u, clinically stable 6. HTN; mostly controlled 7. DM2 8. S/P L TMA with dehiscence. followed by Dr. Welch 9. Anemia: post transfusion 10. Sepsis 11. Hx of mild CM: past EF at 45% Recommendations 1. Poor candidate for anticoagulation with anemia and prior hx of SDH. Continue baby ASA for stroke prevention 2. Start on metoprolol 3. No prior TTE with last one noted on 2018. Will obtain limited TTE 4. Continue secondary prevention measures 5. Continue covid-19 treatment ID following 6. Supportive care.outpt ischemic workup if none recent CARRIE MCCLAIN MD 05/28/21 2374: CARDIAC CONSULT ASSESSMENT/PLAN ASSESSMENT/PLAN The patient was seen and interviewed as well as examined at the bedside. The chart was reviewed. The case was discussed. Agree with the plan of care. TEJAL GUO APRN May 28, 2021 13:27 CARRIE MCCLAIN MD May 28, 2021 22:45
[2021-05-28] MEDS: METOPROLOL SUCC 24HR ER 50 MG TAB.ER.24H. PO SCH (16:57)
--- NOTE | 2021-05-28 17:52 | EKG ---
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
[2021-05-28 19:55] VITALS: BP 134/73
[2021-05-28] MEDS: DULoxetine HCL 30 MG CAPSULE.DR PO SCH (21:42)
[2021-05-28] MEDS: MIRTAZAPINE 15 MG TABLET PO SCH (21:42)
[2021-05-28] MEDS: traZODone 50 MG TABLET. PO SCH (21:42)
[2021-05-28] MEDS: EPOETIN ALFA-EPBX for ESRD 20,000 UNIT/ML VIAL. SQ SCH (21:45)
[2021-05-28 22:45] VITALS: BP 140/64
--- NOTE | 2021-05-28 23:37 | PN ---
DATE: 05/27/2021 SUBJECTIVE: The patient is resting slightly propped up in bed, in no apparent distress, continue to be encephalopathic, nonverbal. He was admitted yesterday with altered mental status, severe anemia, for which he received 1 unit of packed RBCs as well as infected left foot, for which we started him on IV Zosyn and vancomycin. He was dialyzed yesterday and received 1 unit of packed RBCs. He was also turned out to be positive for coronavirus. PHYSICAL EXAMINATION: GENERAL: When I saw him today, he was pale, not jaundiced, cyanosed, no lymphadenopathy, no thyromegaly, no jugular venous distention. No limb edema. VITAL SIGNS: His heart rate was 86, blood pressure was 114/69, temperature was 98.3, respiratory rate was 18 and oxygen saturation was 92%. His blood sugar when I saw him this morning was 139 mg/dL. HEAD, EYES, EARS, NOSE AND THROAT: Normocephalic, atraumatic. NECK: Supple. HEART: Normal first and second heart sounds. No gallop, rub or murmur. CHEST: Shows central trachea, equal bilateral expansion, air entry, vesicular breath sounds. No crepitation or rhonchi. ABDOMEN: Distended, soft, nontender. NEUROLOGIC: He mumbles a few words that are indistinctive. He has not been able to open even his eyes; however, he moves upper extremities without difficulty. He has no neck rigidity. LABORATORY DATA: His lab work this morning showed a white cell count of 7300, hemoglobin 8.6, hematocrit 26.9, MCV 86 and platelet count of 124,000. His blood sugar has been well within acceptable range. His chemistry is variable. His C-reactive protein was high at 149 and his sedimentation rate was 54 mm/hour. ASSESSMENT: Altered mental status, the cause of which is not very clear to me. I will consult Dr. Luis to assist with management. He is known to have a seizure disorder and I did actually switch his Keppra to be given intravenously. Whether he has nonconvulsive seizures is difficult to know. Obviously, he has anemia, for which he received 1 unit of packed RBCs, end-stage renal disease, on hemodialysis and has other medical problems to include: A. Insulin-dependent type 2 diabetes mellitus. B. Atrial fibrillation. C. Coronary artery disease status post coronary artery bypass graft. D. Ischemic cardiomyopathy. E. Hypertension. F. Cerebrovascular accident. G. Peripheral neuropathy H. Chronic subdural hematoma. I. Seizure disorder. PLAN: To continue with IV antibiotic. Continue with wound care. Continue with hemodialysis as per Nephrology team. I will consult Dr. Luis for evaluation and treatment of his altered mental status. VICKI DR: Tyler TID: [id number]
--- NOTE | 2021-05-29 01:22 | PN ---
DATE: 05/28/2021 SUBJECTIVE: The patient is resting, slightly propped up in bed, in no apparent respiratory distress. He is awake, alert, responding appropriately. On questioning him, he denied any complaint, in particular, denied any pain. Denied any chills, rigors or fever. PHYSICAL EXAMINATION: GENERAL: When I examined him, he was pale, not jaundiced or cyanosed. No thyromegaly. No jugular venous distention. No limb edema. VITAL SIGNS: His heart rate was 83, blood pressure was 140/76, temperature was 97.5, respiratory rate was 20 and oxygen saturation was 97% on 2 liters of oxygen. HEAD, EYES, EARS, NOSE, AND THROAT: Normocephalic, atraumatic. NECK: Supple. HEART: Normal first and second heart sounds, no gallop or murmur. CHEST: Clear to auscultation, no crepitation or rhonchi. ABDOMEN: Distended, soft, nontender. NEUROLOGIC: He is definitely more awake, alert, responding appropriately. All his cranial nerves are intact. He moves upper extremities without difficulty. He has left forefoot amputation. Wound is covered with dressing. His intake was 420. No output was recorded. LABORATORY DATA: His lab work as of this morning showed a white cell count of 8900, hemoglobin 9.2, hematocrit 29, MCV 86 and platelet count of 135,000. His prothrombin time, INR and APTT are slightly elevated. His chemistry is variable, hemodialysis dependent. His random vancomycin was elevated and his coronavirus via rapid antigen testing was positive. His blood cultures showed no growth after 2 days and his wound culture is still pending at the time of this dictation. ASSESSMENT: 1. Altered mental status has resolved. The patient is now more awake, alert, responding appropriately. 2. Insulin-dependent type 1 diabetes mellitus. His blood sugar seems to be reasonably controlled. 3. Atrial fibrillation. 4. Coronary artery disease status post coronary artery bypass graft. 5. End-stage renal disease, on hemodialysis. 6. Ischemic cardiomyopathy. 7. Hypertension. 8. Cerebrovascular accident. 9. Peripheral neuropathy. 10. History of chronic subdural hematoma that has resolved. 11. Seizure disorder. PLAN: To continue with IV antibiotic in the form of Zosyn and vancomycin. Continue with hemodialysis per Nephrology team. Continue with Keppra for seizure disorder. Continue to monitor his H and H and transfuse him as needed. CHERYL/ALISSA/SANGEETA DR: Tyler TID: [id number]
[2021-05-29 03:25] VITALS: BP 121/65
[2021-05-29] MEDS ORDERED: VANCOMYCIN RANDOM LEVEL. MC ONE (06:00)
[2021-05-29] MEDS: PIPERACILLIN/TAZOBACTAM 2.25 GM in IV NORMAL SALINE 50ML 50 ML IV SCH ×3 (06:11→22:41)
[2021-05-29 07:00] VITALS: BP 128/71
[2021-05-29] MEDS: PANTOPRAZOLE 40 MG TABLET.DR. PO SCH (08:28)
[2021-05-29] MEDS: METOPROLOL SUCC 24HR ER 50 MG TAB.ER.24H. PO SCH (08:28)
[2021-05-29] MEDS: PREGABALIN 75 MG CAPSULE PO SCH ×2 (08:28→21:39)
[2021-05-29] MEDS: ASPIRIN ENTERIC COATED 81 MG TABLET.DR. PO SCH (08:28)
[2021-05-29] MEDS: CYANOCOBALAMIN (VITAMIN B-12) 1,000 MCG TABLET. PO SCH (08:28)
[2021-05-29] MEDS: ATORVASTATIN CALCIUM 10 MG TABLET. PO SCH (08:28)
[2021-05-29] MEDS: LACTOBACILLUS RHAMNOSUS GG 1 CAPSULE. PO SCH ×2 (08:28→21:39)
[2021-05-29] MEDS: INSULIN LISPRO 300 UNITS/3 ML VIAL. SQ SCH ×3 (08:29→17:00)
[2021-05-29] MEDS: SODIUM HYPOCHLORITE 0.125% 473 ML BOTTLE. TP SCH ×2 (09:00→21:00)
[2021-05-29] MEDS: EZETIMIBE 10 MG TABLET. PO SCH (09:00)
[2021-05-29] MEDS: TOPIRAMATE 100 MG TABLET. PO SCH ×2 (09:00→21:38)
[2021-05-29] MEDS: CHOLECALCIFEROL (VITAMIN D3) 1,000 UNIT TABLET PO SCH (09:00)
--- NOTE | 2021-05-29 09:54 | PDOC ---
Infectious Disease Note Subjective Subjective Patient is feeling better ROS ROS Nausea vomiting diarrhea or fever Vital Sign Vital Signs Vital Signs Date Time Temp Pulse Resp B/P (MAP) Pulse Ox O2 Delivery O2 Flow Rate FiO2 05/29/21 08:28 84 121/65 05/29/21 08:00 Room Air 05/29/21 07:00 98.1 18 99 98.1 05/28/21 11:00 2.0 Physical Exam PHYSICAL EXAM GENERAL: Awake gentleman, not in distress. VITAL SIGNS: Stable HEENT: Both pupils are round and reacting. No conjunctival lesion. No lesion in the mouth. NECK: Supple. No JVP, no lymphadenopathy. LUNGS: Clear. HEART: S1, S2, regular. ABDOMEN: Soft, nontender. No organomegaly. EXTREMITIES: There are multiple superficial wounds on to the extremities. Muscle wasting present. full-length TMA incision has dehisced and some purulent drainage coming out NEUROLOGIC: The patient is awake, try to say something, mumbles few words, occasional appropriate nodding. Labs Lab Laboratory Tests Test 05/28/21 12:08 05/28/21 14:16 05/28/21 16:51 05/28/21 20:23 Glucose (Fingerstick) 192 mg/dL (70-99) 118 mg/dL (70-99) 130 mg/dL (70-99) Troponin I High Sensitivity 42 ng/L (4-75) Test 05/29/21 06:55 05/29/21 08:03 Random Vancomycin Level 24.5 mcg/mL Glucose (Fingerstick) 206 mg/dL (70-99) Micro GRAM STAIN Final Final GRAM NEGATIVE RODS:MANY SQUAMOUS EPI CELL:NONE SEEN PMN (WBCs):RARE Unless otherwise specified, Testing Performed by: [address] [id number] For Inquires, the Physician may contact the Microbiology department at [phone] ANAEROBIC-AEROBIC CULTURE Preliminary Preliminary MANY [ENTEROBACTER CLOACAE COMPLEX] on 05/28/21 at 1127 FEW [IRA ALBICANS] on 05/28/21 at 1127 ENTEROBACTER CLOACAE COMPLEX IRA ALBICANS Unless otherwise specified, Testing Performed by: [address] [address] For Inquires, the Physician may contact the Microbiology department at [phone] Objective Assessment IMPRESSION: 1. Encephalopathy. 2. COVID-19 positive. 3. Fever. 4. Left foot infection. 5. End-stage renal disease, on hemodialysis. 6. Seizure disorder. 7. Coronary artery disease. 8. Hypertension. 9. Diabetes. Plan Plan of Care Continue antibiotics Continue local care will need wound VAC MACHELLE COPE MD May 29, 2021 09:54
--- NOTE | 2021-05-29 10:29 | PN ---
DATE: 05/29/2021 SUBJECTIVE: The patient is resting, slightly propped up in bed, no apparent distress. He continued to be somewhat encephalopathic, although he does open her eyes and respond verbally. He apparently refused to take to eat his breakfast this morning. He was evaluated by Dr. Andrew and he recommended left below-knee amputation, so I did consult the vascular surgeon to see whether to evaluate him for that. Meanwhile, he continues to be on antibiotic in the form of vancomycin and Zosyn. PHYSICAL EXAMINATION: GENERAL: On examining him, he was pale, not jaundiced, cyanosed, no lymphadenopathy, no thyromegaly, no jugular venous distention. No limb edema. EXTREMITIES: He has left forefoot amputation. His intake and output are incompletely recorded. LABORATORY DATA: As of yesterday, his white cell count was 8900, hemoglobin 9.2, hematocrit 29, MCV 86 and platelet count 237,000. His chemistry is variable, is hemodialysis dependent. His blood sugar this morning was 206 mg/dL. ASSESSMENT: 1. Altered mental status has improved. The patient is now more awake, alert, responding appropriately. 2. Insulin-dependent type 2 diabetes mellitus. Blood sugar seems to be reasonably controlled. 3. Atrial fibrillation. 4. Coronary artery disease status post coronary artery bypass graft surgery. 5. End-stage renal disease, on hemodialysis. 6. Ischemic cardiomyopathy. 7. Hypertension. 8. Cerebrovascular accident. 9. Peripheral neuropathy. 10. History of chronic subdural hematoma that has resolved. 11. Seizure disorder. 12. Infected left foot for which the patient was seen by the foot surgery, who recommended left below-knee amputation. PLAN: To continue with IV antibiotic in the form of Zosyn and vancomycin. Continue with hemodialysis as per Nephrology team. Continue with Keppra for seizure disorder. Continue to monitor his H and H and transfuse him as needed. I did consult the vascular surgeon for left below knee amputation. CHERYL/TENISHA DR: CHERYL/alma delia TID: [id number]
[2021-05-29 11:00] VITALS: BP 120/77
[2021-05-29 12:29] LABS: FECAL OB PT NEGATIVE (NEG)
--- NOTE | 2021-05-29 12:33 | PDOC ---
Provider Note Date of Service: DATE: 05/29/21 TIME: 12:31 Provider Note Vascular consult follow-up dictated Impression: #1 nonhealing left transmetatarsal amputation with significant eschar on the dorsum of the foot. He has a palpable left popliteal pulse. 2. Diabetes. 3. End-stage renal disease requiring hemodialysis. 4. Status post carotid endarterectomy. 5. COVID positive. 6. History of coronary bypass Recommendation: #1 I recommend left below-knee amputation. He has a palpable popliteal pulse and therefore there is a very good chance that this will heal without complications. He has adamantly refused this option. 2. We will continue to follow as needed. Should he consent to below-knee am putation, then we can proceed. Otherwise I recommend dry gauze dressing and IV antibiotics. Justifications for Admission Other Justification JULES CARRANZA II, MD May 29, 2021 12:33
--- NOTE | 2021-05-29 13:18 | PDOC ---
PROGRESS NOTES Date of Service DATE: 05/29/21 TIME: 13:15 Subjective Subjective Patient seen and evaluated. Objective Objective Vital Signs Date Time Temp Pulse Resp B/P (MAP) Pulse Ox O2 Delivery O2 Flow Rate FiO2 05/29/21 08:28 84 121/65 05/29/21 08:00 Room Air 05/29/21 07:00 98.1 18 99 98.1 05/28/21 11:00 2.0 Intake and Output 05/29/21 07:00 Intake Total 100 ml Balance 100 ml Intake Oral 100 ml # Voids 1 # Bowel Movements 1 Physical Exam Physical Exam The patient is alert and oriented. Visual examination. Assessment Assessment Problems Medical Problems: (1) Altered mental status Status: Acute (2) COVID-19 Status: Acute (3) Draining postoperative wound Status: Acute (4) ESRD (end stage renal disease) on dialysis Status: Acute (5) Severe anemia Status: Acute Covid-19/fever. Continuing present treatment. Acute encephalopathy ESRD PAFIB: presently AFIB/flutter with intermittent episodes of abberant conduction/RBBB. rate controlled. He did have very brief x1 NSVT. Sinus rhythm this morning. CAD: unclear if any recent w/u, clinically stable HTN; mostly controlled DM2 S/P L TMA with dehiscence. followed by Dr. Welch and vascular surgery. Anemia: post transfusion. Monitoring Sepsis. Antibiotic treatment as above. Hx of mild CM: past EF at 45%. Comment Review of Relevant I have reviewed the following items yifan (where applicable) has been applied. Labs Laboratory Tests Test 05/27/21 16:52 05/27/21 21:28 05/28/21 04:45 05/28/21 08:48 Glucose (Fingerstick) 158 mg/dL (70-99) 180 mg/dL (70-99) 174 mg/dL (70-99) White Blood Count 8.9 x10^3/uL (4.0-11.0) Red Blood Count 3.39 x10^6/uL (4.30-5.70) Hemoglobin 9.2 g/dL (13.0-17.5) Hematocrit 29.2 % (39.0-53.0) Mean Corpuscular Volume 86 fL (79-100) Mean Corpuscular Hemoglobin 27 pg (25-35) Mean Corpuscular Hemoglobin Concent 31 g/dL (31-37) Red Cell Distribution Width 23.3 % (11.5-14.5) Platelet Count 135 x10^3/uL (140-400) Sodium Level 141 mmol/L (136-145) Potassium Level 3.5 mmol/L (3.5-5.1) Chloride Level 100 mmol/L (98-107) Carbon Dioxide Level 26 mmol/L (21-32) Anion Gap 15 (6-14) Blood Urea Nitrogen 35 mg/dL (8-26) Creatinine 5.8 mg/dL (0.7-1.3) Estimated GFR (Cockcroft-Gault) 10.2 BUN/Creatinine Ratio 6 (6-20) Glucose Level 189 mg/dL (70-99) Calcium Level 7.9 mg/dL (8.5-10.1) Magnesium Level 2.2 mg/dL (1.8-2.4) Total Bilirubin 1.1 mg/dL (0.2-1.0) Aspartate Amino Transf (AST/SGOT) 17 U/L (15-37) Alanine Aminotransferase (ALT/SGPT) 15 U/L (16-63) Alkaline Phosphatase 98 U/L (46-116) Total Protein 7.0 g/dL (6.4-8.2) Albumin 2.2 g/dL (3.4-5.0) Albumin/Globulin Ratio 0.5 (1.0-1.7) Test 05/28/21 12:08 05/28/21 14:16 05/28/21 16:51 05/28/21 20:23 Glucose (Fingerstick) 192 mg/dL (70-99) 118 mg/dL (70-99) 130 mg/dL (70-99) Troponin I High Sensitivity 42 ng/L (4-75) Test 05/29/21 06:55 05/29/21 08:03 05/29/21 12:05 05/29/21 12:10 Random Vancomycin Level 24.5 mcg/mL Glucose (Fingerstick) 206 mg/dL (70-99) 171 mg/dL (70-99) Stool Occult Blood Negative (NEG) Laboratory Tests Test 05/28/21 14:16 05/28/21 16:51 05/28/21 20:23 05/29/21 06:55 Troponin I High Sensitivity 42 ng/L (4-75) Glucose (Fingerstick) 118 mg/dL (70-99) 130 mg/dL (70-99) Random Vancomycin Level 24.5 mcg/mL Test 05/29/21 08:03 05/29/21 12:05 05/29/21 12:10 Glucose (Fingerstick) 206 mg/dL (70-99) 171 mg/dL (70-99) Stool Occult Blood Negative (NEG) Microbiology 05/28/21 Gram Stain - Final, Resulted 05/28/21 Aerobic and Anaerobic Culture - Preliminary, Resulted 05/26/21 Blood Culture - Preliminary, Resulted NO GROWTH AFTER 3 DAYS Medications Current Medications Sodium Chloride 1,000 ml @ 1,000 mls/hr 1X ONCE IV ; Start 05/26/21 at 01:30; Stop 05/26/21 at 02:29; Status DC Piperacillin Sod/ Tazobactam Sod (Zosyn Per Pharmacy) 1 each PRN DAILY PRN MC SEE COMMENTS; Start 05/26/21 at 01:30 Piperacillin Sod/ Tazobactam Sod 3.375 gm/Sodium Chloride 50 ml @ 100 mls/hr 1X ONCE IV Last administered on 05/26/21at 03:25; Start 05/26/21 at 02:15; Stop 05/26/21 at 02:44; Status DC Vancomycin HCl (Vanco Per Pharmacy) 1 each PRN DAILY PRN MC SEE COMMENTS Last administered on 05/27/21at 09:27; Start 05/26/21 at 03:15 Sodium Chloride 500 ml @ 500 mls/hr 1X ONCE IV Last administered on 05/26/21at 03:25; Start 05/26/21 at 03:30; Stop 05/26/21 at 04:29; Status DC Ondansetron HCl (Zofran) 4 mg PRN Q8HRS PRN IVP NAUSEA/VOMITING; Start 05/26/21 at 03:30; Stop 05/27/21 at 03:29; Status DC Acetaminophen (Tylenol) 650 mg PRN Q4HRS PRN PO FEVER > 100.3'F; Start 05/26/21 at 03:30; Stop 05/27/21 at 03:29; Status DC Insulin Human Lispro (HumaLOG) 0-5 UNITS TIDWMEALS SQ Last administered on 05/26/21at 09:09; Start 05/26/21 at 08:00; Stop 05/26/21 at 12:46; Status DC Dextrose (Dextrose 50%-Water Syringe) 12.5 gm PRN Q15MIN PRN IV SEE COMMENTS; Start 05/26/21 at 03:30; Status Cancel Vancomycin HCl 1.75 gm/Sodium Chloride 500 ml @ 250 mls/hr 1X ONCE IV Last administered on 05/26/21at 05:47; Start 05/26/21 at 06:00; Stop 05/26/21 at 07:59; Status DC Piperacillin Sod/ Tazobactam Sod 2.25 gm/Sodium Chloride 50 ml @ 100 mls/hr Q8HRS IV Last administered on 05/29/21at 06:11; Start 05/26/21 at 08:00 Sodium Hypochlorite (Dakin'S 1/4 Strength) 1 lópez BID TP Last administered on 05/29/21at 09:00; Start 05/26/21 at 11:00 Aspirin (Ecotrin) 81 mg DAILY PO Last administered on 05/29/21at 08:28; Start 05/26/21 at 14:00 Atorvastatin Calcium (Lipitor) 10 mg DAILY PO Last administered on 05/29/21at 08:28; Start 05/26/21 at 14:00 Cyanocobalamin (Vitamin B-12) 1,000 mcg DAILY PO Last administered on 05/29/21at 08:28; Start 05/27/21 at 09:00 EZETIMIBE (Zetia) 10 mg DAILY PO Last administered on 05/29/21at 09:00; Start 05/26/21 at 14:00 Topiramate (Topamax) 100 mg BID PO Last administered on 05/29/21at 09:00; Start 05/26/21 at 14:00 Trazodone HCl (Desyrel) 50 mg QHS PO Last administered on 05/28/21at 21:42; Start 05/26/21 at 21:00 Vitamin D (Vitamin D3) 1,000 unit DAILY PO Last administered on 05/29/21at 09:00; Start 05/26/21 at 14:00 Duloxetine HCl (Cymbalta) 60 mg HS PO Last administered on 05/28/21at 21:42; Start 05/26/21 at 21:00 Non-Formulary Medication (Icosapent Ethyl (Vascepa)) 2 cap BID PO ; Start 05/26/21 at 21:00; Status UNV Mirtazapine (Remeron) 45 mg QHS PO Last administered on 05/28/21at 21:42; Start 05/26/21 at 21:00 Pantoprazole Sodium (Protonix) 40 mg DAILYAC PO Last administered on 05/29/21at 08:28; Start 05/26/21 at 14:00 Pregabalin (Lyrica) 225 mg BID PO Last administered on 05/29/21at 08:28; Start 05/26/21 at 14:00 Promethazine HCl (Phenergan) 25 mg PRN Q6HRS PRN PO NAUSEA/VOMITING; Start 05/26/21 at 13:00 Levetiracetam 100 ml @ 400 mls/hr Q12HR IV ; Start 05/26/21 at 21:00; Status UNV Insulin Human Lispro (HumaLOG) 0-5 UNITS TIDWMEALS SQ Last administered on 05/29/21at 08:29; Start 05/26/21 at 17:00 Dextrose (Dextrose 50%-Water Syringe) 12.5 gm PRN Q15MIN PRN IV SEE COMMENTS; Start 05/26/21 at 12:45 Levetiracetam (Keppra) 500 mg BID PO ; Start 05/26/21 at 14:00; Status Cancel Lactobacillus Rhamnosus (Culturelle) 1 cap BID PO Last administered on at 08:28; Start 05/26/21 at 21:00 Levetiracetam 100 ml @ 400 mls/hr Q12HR IV Last administered on 05/29/21at 08:31; Start 05/26/21 at 14:00 Epoetin Catalino-epbx (RETACRIT for ESRD PTS) 10,000 unit MoWeFr@2100 SQ Last administered on 05/28/21at 21:45; Start 05/26/21 at 21:00 Vancomycin HCl (Vancomycin Random Level) 1 each 1X ONCE MC Last administered on 05/27/21at 05:00; Start 05/27/21 at 05:00; Stop 05/27/21 at 05:01; Status DC Info (PHARMACY MONITORING -- do not chart) 1 each PRN DAILY PRN MC SEE JESÚS TS; Start 05/26/21 at 18:30 Vancomycin HCl (Vancomycin Random Level) 1 each 1X ONCE MC Last administered on 05/29/21at 06:00; Start 05/29/21 at 06:00; Stop 05/29/21 at 06:01; Status DC Sodium Chloride 1,000 ml @ 1,000 mls/hr Q1H PRN IV hypotension; Start 05/28/21 at 11:45; Stop 05/28/21 at 17:44; Status DC Sodium Chloride (Normal Saline Flush) 10 ml 1X PRN PRN IV AP catheter pack; Start 05/28/21 at 11:45; Stop 05/29/21 at 11:44; Status DC Sodium Chloride (Normal Saline Flush) 10 ml 1X PRN PRN IV DIRECTOR HEART catheter pack; Start 05/28/21 at 11:45; Stop 05/29/21 at 11:44; Status DC Sodium Chloride 1,000 ml @ 400 mls/hr Q2H30M PRN IV PATENCY; Start 05/28/21 at 11:45; Stop 05/28/21 at 23:44; Status DC Info (PHARMACY MONITORING -- do not chart) 1 each PRN DAILY PRN MC SEE COMMENTS; Start 05/28/21 at 11:45; Status UNV Info (PHARMACY MONITORING -- do not chart) 1 each PRN DAILY PRN MC SEE COMMENTS; Start 05/28/21 at 11:45; Status UNV Metoprolol Succinate (Toprol Xl) 50 mg DAILY PO Last administered on 05/29/21at 08:28; Start 05/28/21 at 14:00 Active Scripts Active Metoprolol Succinate 50 Mg Tab.er.24h 50 Mg PO DAILY 30 Days Levetiracetam 500 Mg Tablet 500 Mg PO BID 30 Days Reported Trazodone Hcl 50 Mg Tablet 1 Tab PO QHS Xultophy 100 Unit-3.6 mg/ml (Insulin Degludec/Liraglutide) 3 Ml Insuln.pen 24 Ml SQ HS Vitamin D (Cholecalciferol (Vitamin D3)) 1,000 Unit Capsule 1 Cap PO DAILY Atorvastatin Calcium 10 Mg Tablet 10 Mg PO DAILY Sildenafil (Sildenafil Citrate) 20 Mg Tablet 20 Mg PO TID Zetia (Ezetimibe) 10 Mg Tablet 10 Mg PO DAILY Omeprazole 40 Mg Capsule.dr 40 Mg PO DAILY Topiramate 100 Mg Tablet 100 Mg PO BID Promethazine Hcl 25 Mg Tablet 25 Mg PO Q6H PRN B-12 (Cyanocobalamin (Vitamin B-12)) 1,000 Mcg Tablet 1,000 Mcg PO DAILY Vascepa (Icosapent Ethyl) 1 Gm Capsule 2 Cap PO BID Aspirin Ec (Aspirin) 81 Mg Tablet.dr 81 Mg PO DAILY Duloxetine Hcl 60 Mg Capsule.dr 60 Mg PO HS Lyrica (Pregabalin) 225 Mg Capsule 225 Mg PO BID Losartan-Hctz 100-25 Mg Tab (Losartan/Hydrochlorothiazide) 1 Each Tablet 25 Mg PO DAILY Mirtazapine 45 Mg Tablet 45 Mg PO HS Amlodipine Besylate 5 Mg Tablet 5 Mg PO DAILY Vitals/I & O Vital Sign - Last 24 Hours 05/28/21 05/28/21 05/28/21 05/29/21 16:57 19:55 22:45 03:25 Temp 99.3 98.2 99.0 99.3 98.2 99.0 Pulse 99 86 82 84 Resp 18 22 20 B/P (MAP) 114/72 134/73 (93) 140/64 (89) 121/65 (83) Pulse Ox 95 97 95 O2 Delivery Room Air Room Air Room Air 05/29/21 05/29/21 05/29/21 07:00 08:00 08:28 Temp 98.1 98.1 Pulse 82 84 Resp 18 B/P (MAP) 128/71 (90) 121/65 Pulse Ox 99 O2 Delivery Room Air Room Air Intake and Output 05/28/21 05/28/21 05/29/21 15:00 23:00 07:00 Intake Total 100 ml Balance 100 ml Justifications for Admission Other Justification ADELAIDA DELEON MD May 29, 2021 13:18
[2021-05-29 15:00] VITALS: BP 106/54
--- NOTE | 2021-05-29 15:00 | NUR ---
Pharmacy Vancomycin Dosing Note S:Consulted to monitor and dose vancomycin started 05/26/21. O:FER CHAUDHARY is a 55 year old M with Sepsis . Height: 5 feet, 10 inches Weight: 91.2 kg [place] Body Weight: 73.00 Adjusted Body Weight: 80.28 Dosing Weight: Other Antibiotics: ZOSYN 05/26 - LABS: Last BUN: 36 Last Creatinine: 5.8 Creatinine Clearance: ESRD HD mL/min Last WBC: 7.3 Last Procalcitonin: Tmax (past 24 hours): 98.3 Microbiology: MGTD I/O: 420 Drug Levels: Last Random level: 24.5 on 05/29/21 at 0655. Last dose given 05/26/21 at 0547 Vancomycin Dosing: Loading Dose: x1 Dosing Weight: Target Trough: 15-20 A: Based on random trough of 24.5: P: 1. Dosing per Random trough. 2. Follow up Random level on 06/02/21 at 0600 3. Pharmacy will continue to monitor, follow and adjust therapy as needed. Roddy Hernandez Mikayla, 05/29/21 1500
--- NOTE | 2021-05-29 18:00 | CONS ---
DATE OF CONSULTATION: 05/29/2021 VASCULAR CONSULTATION CLINICAL HISTORY: This is a 55-year-old gentleman who has end-stage renal disease and diabetes, who had a recent transmetatarsal amputation of the left foot. He is admitted for altered mental status. He has had some dehiscence of the wound and there is a large eschar on the dorsum of the foot, for which we will evaluate. He is now on vancomycin and Zosyn. PAST MEDICAL HISTORY: Significant for diabetes, end-stage renal disease, requiring hemodialysis, coronary artery disease, atrial fibrillation, ischemic cardiomyopathy, hypertension, history of stroke, history of peripheral neuropathy and peripheral vascular disease, carotid endarterectomy, coronary artery bypass grafting and AV graft in the upper arm. SOCIAL HISTORY: Negative for drug use or smoking. He resides in a fpc. ALLERGIES: None known. MEDICATIONS: Reviewed. REVIEW OF SYSTEMS: Twelve-point review of systems, he does not complain of any pain at this point in time. Otherwise, 12-point of review of systems is negative. PHYSICAL EXAMINATION: GENERAL: The patient is alert and awake. He is afebrile. EXTREMITIES: He has palpable bilateral popliteal and right dorsal pedal pulse. He has no palpable pulse in the left foot. Examination of the left forefoot reveals dehiscence of the mid portion of the transmetatarsal amputation. There is no evidence of sepsis. There is a large area dorsally that with a gangrenous eschar. IMPRESSION: 1. Status post left transmetatarsal amputation, now with dehiscence of the wound and large eschar on the dorsum of the foot. 2. He is COVID positive. 3. End-stage renal disease, requiring hemodialysis. 4. Diabetes. 5. History of atherosclerotic heart disease and peripheral vascular disease. RECOMMENDATION: The patient will require below-knee amputation at some point. He does have a palpable left popliteal pulse and so that this should heal without issues. He has, however, declined this option. Therefore, we will continue to follow up only as needed. NICK DR: Rajesh TID: [id number]
[2021-05-29 19:35] VITALS: BP 127/62
[2021-05-29] MEDS: MIRTAZAPINE 15 MG TABLET PO SCH (21:39)
[2021-05-29] MEDS: DULoxetine HCL 30 MG CAPSULE.DR PO SCH (21:39)
[2021-05-29] MEDS: traZODone 50 MG TABLET. PO SCH (21:39)
[2021-05-29 23:40] VITALS: BP 131/73
[2021-05-30 03:30] VITALS: BP 122/67
[2021-05-30] MEDS: PIPERACILLIN/TAZOBACTAM 2.25 GM in IV NORMAL SALINE 50ML 50 ML IV SCH ×3 (06:07→23:45)
[2021-05-30 07:00] VITALS: BP 120/79
[2021-05-30 07:47] LABS: HEMATOCRIT 29.2 % (39.0-53.0); HEMOGLOBIN 9.1 g/dL (13.0-17.5)
[2021-05-30] MEDS: INSULIN LISPRO 300 UNITS/3 ML VIAL. SQ SCH ×3 (08:00→17:00)
[2021-05-30] MEDS: EZETIMIBE 10 MG TABLET. PO SCH (09:20)
[2021-05-30] MEDS: ASPIRIN ENTERIC COATED 81 MG TABLET.DR. PO SCH (09:20)
[2021-05-30] MEDS: CYANOCOBALAMIN (VITAMIN B-12) 1,000 MCG TABLET. PO SCH (09:20)
[2021-05-30] MEDS: PREGABALIN 75 MG CAPSULE PO SCH ×2 (09:20→21:25)
[2021-05-30] MEDS: levETIRAcetam 500 MG TABLET PO SCH ×2 (09:21→21:26)
[2021-05-30] MEDS: ATORVASTATIN CALCIUM 10 MG TABLET. PO SCH (09:21)
[2021-05-30] MEDS: TOPIRAMATE 100 MG TABLET. PO SCH ×2 (09:21→21:26)
[2021-05-30] MEDS: PANTOPRAZOLE 40 MG TABLET.DR. PO SCH (09:21)
[2021-05-30] MEDS: LACTOBACILLUS RHAMNOSUS GG 1 CAPSULE. PO SCH ×2 (09:21→21:26)
[2021-05-30] MEDS: CHOLECALCIFEROL (VITAMIN D3) 1,000 UNIT TABLET PO SCH (09:21)
[2021-05-30] MEDS: METOPROLOL SUCC 24HR ER 50 MG TAB.ER.24H. PO SCH (09:54)
[2021-05-30] MEDS: SODIUM HYPOCHLORITE 0.125% 473 ML BOTTLE. TP SCH ×2 (10:03→21:00)
[2021-05-30 11:00] VITALS: BP 117/76
--- NOTE | 2021-05-30 12:27 | PN ---
DATE: 05/30/2021 SUBJECTIVE: The patient is resting, slightly propped up in bed, in no apparent respiratory distress, awake, alert. On questioning him, he denied any complaint. PHYSICAL EXAMINATION: GENERAL: When I examined him, he looked pale, not jaundiced or cyanosed, no lymphadenopathy, no thyromegaly, no jugular venous distention. No lower limb edema. VITAL SIGNS: His heart rate was 77, blood pressure was 120/79, temperature was 98.2, respiratory rate 20, and oxygen saturation was 96%. HEAD, EYES, EARS, NOSE, AND THROAT: Normocephalic, atraumatic. NECK: Supple. HEART: Normal first and second heart sounds, no gallop or murmur. CHEST: Clear to auscultation, no crepitation or rhonchi. ABDOMEN: Distended, soft, nontender. NEUROLOGIC: He was awake, alert, responding appropriately. All cranial nerves are intact. He moves his extremities without difficulty. He is status post left transmetatarsal amputation of the infected dehiscence wound. His intake and output are incompletely recorded. LABORATORY DATA: This morning showed a hemoglobin 9.1, hematocrit 29. His chemistry is obviously variable. His blood sugar seems to be reasonably controlled. ASSESSMENT: 1. He is status post left transmetatarsal amputation now with dehiscence of the wound and a large eschar on the dorsum of the foot for which he was seen by the vascular surgeon as recommended by the cadence specialists and he recommended right below-knee amputation; however, the patient declined this option and therefore, we will continue with antibiotic and wound care. He is COVID positive. 2. He has end-stage renal disease, on hemodialysis Monday, Monday, Monday. 3. Type 1 diabetes mellitus. 4. Atrial fibrillation. 5. Coronary artery disease status post coronary artery bypass graft surgery. 6. Ischemic cardiomyopathy. 7. Hypertension. 8. Cerebrovascular accident. 9. Peripheral neuropathy. 10. History of chronic subdural hematoma that has resolved. 11. Seizure disorder. PLAN: To continue with wound care. Continue with IV antibiotic. Continue with hemodialysis. CHERYL/TENISHA DR: Tyler TID: [id number]
--- NOTE | 2021-05-30 13:57 | PDOC ---
PROGRESS NOTES Date of Service DATE: 05/30/21 TIME: 13:55 Subjective Subjective Patient seen and evaluated. Objective Objective Vital Signs Date Time Temp Pulse Resp B/P (MAP) Pulse Ox O2 Delivery O2 Flow Rate FiO2 05/30/21 11:00 98.4 80 16 117/76 (90) 95 Room Air 98.4 05/28/21 11:00 2.0 Intake and Output 05/30/21 07:00 Intake Total 0 ml Balance 0 ml Intake Oral 0 ml # Bowel Movements 4 Physical Exam Physical Exam Visual examination secondary to COVID status. Assessment Assessment Problems Medical Problems: (1) Altered mental status Status: Acute (2) COVID-19 Status: Acute (3) Draining postoperative wound Status: Acute (4) ESRD (end stage renal disease) on dialysis Status: Acute (5) Severe anemia Status: Acute Covid-19/fever. Continuing present treatment. Acute encephalopathy ESRD PAFIB: presently sinus with intermittent episodes of abberant conduction/RBBB. rate controlled. He did have very brief x1 NSVT several days ago. CAD: unclear if any recent w/u, clinically stable HTN; mostly controlled DM2 S/P L TMA with dehiscence. followed by Dr. Welch and vascular surgery. Anemia: post transfusion. Monitoring Sepsis. Antibiotic treatment as above. Hx of mild CM: past EF at 45%. Comment Review of Relevant I have reviewed the following items yifan (where applicable) has been applied. Labs Laboratory Tests Test 05/28/21 14:16 05/28/21 16:51 05/28/21 20:23 05/29/21 06:55 Troponin I High Sensitivity 42 ng/L (4-75) Glucose (Fingerstick) 118 mg/dL (70-99) 130 mg/dL (70-99) Random Vancomycin Level 24.5 mcg/mL Test 05/29/21 08:03 05/29/21 12:05 05/29/21 12:10 05/29/21 17:32 Glucose (Fingerstick) 206 mg/dL (70-99) 171 mg/dL (70-99) 191 mg/dL (70-99) Stool Occult Blood Negative (NEG) Test 05/29/21 20:42 05/30/21 07:20 05/30/21 08:10 05/30/21 11:38 Glucose (Fingerstick) 242 mg/dL (70-99) 198 mg/dL (70-99) 190 mg/dL (70-99) Hemoglobin 9.1 g/dL (13.0-17.5) Hematocrit 29.2 % (39.0-53.0) Laboratory Tests Test 05/29/21 17:32 05/29/21 20:42 05/30/21 07:20 05/30/21 08:10 Glucose (Fingerstick) 191 mg/dL (70-99) 242 mg/dL (70-99) 198 mg/dL (70-99) Hemoglobin 9.1 g/dL (13.0-17.5) Hematocrit 29.2 % (39.0-53.0) Test 05/30/21 11:38 Glucose (Fingerstick) 190 mg/dL (70-99) Microbiology 05/28/21 Gram Stain - Final, Resulted 05/28/21 Aerobic and Anaerobic Culture - Preliminary, Resulted 05/28/21 Antimicrobic Susceptibility - Preliminary, Resulted 05/26/21 Blood Culture - Preliminary, Resulted NO GROWTH AFTER 4 DAYS Medications Current Medications Sodium Chloride 1,000 ml @ 1,000 mls/hr 1X ONCE IV ; Start 05/26/21 at 01:30; Stop 05/26/21 at 02:29; Status DC Piperacillin Sod/ Tazobactam Sod (Zosyn Per Pharmacy) 1 each PRN DAILY PRN MC SEE COMMENTS; Start 05/26/21 at 01:30 Piperacillin Sod/ Tazobactam Sod 3.375 gm/Sodium Chloride 50 ml @ 100 mls/hr 1X ONCE IV Last administered on 05/26/21at 03:25; Start 05/26/21 at 02:15; Stop 05/26/21 at 02:44; Status DC Vancomycin HCl (Vanco Per Pharmacy) 1 each PRN DAILY PRN MC SEE COMMENTS Last administered on 05/27/21at 09:27; Start 05/26/21 at 03:15 Sodium Chloride 500 ml @ 500 mls/hr 1X ONCE IV Last administered on 05/26/21at 03:25; Start 05/26/21 at 03:30; Stop 05/26/21 at 04:29; Status DC Ondansetron HCl (Zofran) 4 mg PRN Q8HRS PRN IVP NAUSEA/VOMITING; Start 05/26/21 at 03:30; Stop 05/27/21 at 03:29; Status DC Acetaminophen (Tylenol) 650 mg PRN Q4HRS PRN PO FEVER > 100.3'F; Start 05/26/21 at 03:30; Stop 05/27/21 at 03:29; Status DC Insulin Human Lispro (HumaLOG) 0-5 UNITS TIDWMEALS SQ Last administered on 05/26/21at 09:09; Start 05/26/21 at 08:00; Stop 05/26/21 at 12:46; Status DC Dextrose (Dextrose 50%-Water Syringe) 12.5 gm PRN Q15MIN PRN IV SEE COMMENTS; Start 05/26/21 at 03:30; Status Cancel Vancomycin HCl 1.75 gm/Sodium Chloride 500 ml @ 250 mls/hr 1X ONCE IV Last administered on 05/26/21at 05:47; Start 05/26/21 at 06:00; Stop 05/26/21 at 07:59; Status DC Piperacillin Sod/ Tazobactam Sod 2.25 gm/Sodium Chloride 50 ml @ 100 mls/hr Q8HRS IV Last administered on 05/30/21at 06:07; Start 05/26/21 at 08:00 Sodium Hypochlorite (Dakin'S 1/4 Strength) 1 lópez BID TP Last administered on 05/30/21at 10:03; Start 05/26/21 at 11:00 Aspirin (Ecotrin) 81 mg DAILY PO Last administered on 05/30/21at 09:20; Start 05/26/21 at 14:00 Atorvastatin Calcium (Lipitor) 10 mg DAILY PO Last administered on 05/30/21at 09:21; Start 05/26/21 at 14:00 Cyanocobalamin (Vitamin B-12) 1,000 mcg DAILY PO Last administered on 05/30/21at 09:20; Start 05/27/21 at 09:00 EZETIMIBE (Zetia) 10 mg DAILY PO Last administered on 05/30/21at 09:20; Start 05/26/21 at 14:00 Topiramate (Topamax) 100 mg BID PO Last administered on 05/30/21at 09:21; Start 05/26/21 at 14:00 Trazodone HCl (Desyrel) 50 mg QHS PO Last administered on 05/29/21at 21:39; Start 05/26/21 at 21:00 Vitamin D (Vitamin D3) 1,000 unit DAILY PO Last administered on 05/30/21at 09:21; Start 05/26/21 at 14:00 Duloxetine HCl (Cymbalta) 60 mg HS PO Last administered on 05/29/21at 21:39; Start 05/26/21 at 21:00 Non-Formulary Medication (Icosapent Ethyl (Vascepa)) 2 cap BID PO ; Start 05/26/21 at 21:00; Status UNV Mirtazapine (Remeron) 45 mg QHS PO Last administered on 05/29/21at 21:39; Start 05/26/21 at 21:00 Pantoprazole Sodium (Protonix) 40 mg DAILYAC PO Last administered on 05/30/21at 09:21; Start 05/26/21 at 14:00 Pregabalin (Lyrica) 225 mg BID PO Last administered on 05/30/21at 09:20; Start 05/26/21 at 14:00 Promethazine HCl (Phenergan) 25 mg PRN Q6HRS PRN PO NAUSEA/VOMITING; Start 05/26/21 at 13:00 Levetiracetam 100 ml @ 400 mls/hr Q12HR IV ; Start 05/26/21 at 21:00; Status UNV Insulin Human Lispro (HumaLOG) 0-5 UNITS TIDWMEALS SQ Last administered on 05/29/21at 08:29; Start 05/26/21 at 17:00 Dextrose (Dextrose 50%-Water Syringe) 12.5 gm PRN Q15MIN PRN IV SEE COMMENTS; Start 05/26/21 at 12:45 Levetiracetam (Keppra) 500 mg BID PO ; Start 05/26/21 at 14:00; Status Cancel Lactobacillus Rhamnosus (Culturelle) 1 cap BID PO Last administered on 05/30/21at 09:21; Start 05/26/21 at 21:00 Levetiracetam 100 ml @ 400 mls/hr Q12HR IV Last administered on 05/29/21at 21:38; Start 05/26/21 at 14:00; Stop 05/29/21 at 23:00; Status DC Epoetin Catalino-epbx (RETACRIT for ESRD PTS) 10,000 unit MoWeFr@2100 SQ Last administered on 05/28/21at 21:45; Start 05/26/21 at 21:00 Vancomycin HCl (Vancomycin Random Level) 1 each 1X ONCE MC Last administered o n 05/27/21at 05:00; Start 05/27/21 at 05:00; Stop 05/27/21 at 05:01; Status DC Info (PHARMACY MONITORING -- do not chart) 1 each PRN DAILY PRN MC SEE COMMENTS; Start 05/26/21 at 18:30 Vancomycin HCl (Vancomycin Random Level) 1 each 1X ONCE MC Last administered on 05/29/21at 06:00; Start 05/29/21 at 06:00; Stop 05/29/21 at 06:01; Status DC Sodium Chloride 1,000 ml @ 1,000 mls/hr Q1H PRN IV hypotension; Start 05/28/21 at 11:45; Stop 05/28/21 at 17:44; Status DC Sodium Chloride (Normal Saline Flush) 10 ml 1X PRN PRN IV AP catheter pack; Start 05/28/21 at 11:45; Stop 05/29/21 at 11:44; Status DC Sodium Chloride (Normal Saline Flush) 10 ml 1X PRN PRN IV LUMBER STRAIGHTENED catheter pack; Start 05/28/21 at 11:45; Stop 05/29/21 at 11:44; Status DC Sodium Chloride 1,000 ml @ 400 mls/hr Q2H30M PRN IV PATENCY; Start 05/28/21 at 11:45; Stop 05/28/21 at 23:44; Status DC Info (PHARMACY MONITORING -- do not chart) 1 each PRN DAILY PRN MC SEE COMMENTS; Start 05/28/21 at 11:45; Status UNV Info (PHARMACY MONITORING -- do not chart) 1 each PRN DAILY PRN MC SEE COMMENTS; Start 05/28/21 at 11:45; Status UNV Metoprolol Succinate (Toprol Xl) 50 mg DAILY PO Last administered on 05/30/21at 09:54; Start 05/28/21 at 14:00 Vancomycin HCl (Vancomycin Random Level) 1 each 1X ONCE MC ; Start 06/02/21 at 06:00; Stop 06/02/21 at 06:01 Levetiracetam (Keppra) 500 mg BID PO Last administered on 05/30/21at 09:21; Start 05/30/21 at 09:00 Active Scripts Active Metoprolol Succinate 50 Mg Tab.er.24h 50 Mg PO DAILY 30 Days Levetiracetam 500 Mg Tablet 500 Mg PO BID 30 Days Reported Trazodone Hcl 50 Mg Tablet 1 Tab PO QHS Xultophy 100 Unit-3.6 mg/ml (Insulin Degludec/Liraglutide) 3 Ml Insuln.pen 24 Ml SQ HS Vitamin D (Cholecalciferol (Vitamin D3)) 1,000 Unit Capsule 1 Cap PO DAILY Atorvastatin Calcium 10 Mg Tablet 10 Mg PO DAILY Sildenafil (Sildenafil Citrate) 20 Mg Tablet 20 Mg PO TID Zetia (Ezetimibe) 10 Mg Tablet 10 Mg PO DAILY Omeprazole 40 Mg Capsule.dr 40 Mg PO DAILY Topiramate 100 Mg Tablet 100 Mg PO BID Promethazine Hcl 25 Mg Tablet 25 Mg PO Q6H PRN B-12 (Cyanocobalamin (Vitamin B-12)) 1,000 Mcg Tablet 1,000 Mcg PO DAILY Vascepa (Icosapent Ethyl) 1 Gm Capsule 2 Cap PO BID Aspirin Ec (Aspirin) 81 Mg Tablet.dr 81 Mg PO DAILY Duloxetine Hcl 60 Mg Capsule.dr 60 Mg PO HS Lyrica (Pregabalin) 225 Mg Capsule 225 Mg PO BID Losartan-Hctz 100-25 Mg Tab (Losartan/Hydrochlorothiazide) 1 Each Tablet 25 Mg PO DAILY Mirtazapine 45 Mg Tablet 45 Mg PO HS Amlodipine Besylate 5 Mg Tablet 5 Mg PO DAILY Vitals/I & O Vital Sign - Last 24 Hours 05/29/21 05/29/21 05/29/21 05/30/21 15:00 19:35 23:40 03:30 Temp 97.8 97.3 97.4 97.7 97.8 97.3 97.4 97.7 Pulse 68 71 68 74 Resp 18 20 21 20 B/P (MAP) 106/54 (71) 127/62 (83) 131/73 (92) 122/67 (85) Pulse Ox 92 94 95 94 O2 Delivery Room Air Room Air Room Air Room Air 05/30/21 05/30/21 05/30/21 05/30/21 07:00 08:00 09:54 11:00 Temp 98.2 98.4 98.2 98.4 Pulse 79 77 80 Resp 20 16 B/P (MAP) 120/79 (93) 120/79 117/76 (90) Pulse Ox 96 95 O2 Delivery Room Air Room Air Room Air Intake and Output 05/29/21 05/29/21 05/30/21 15:00 23:00 07:00 Intake Total 0 ml Balance 0 ml Justifications for Admission Other Justification ADELAIDA DELEON MD May 30, 2021 13:57
[2021-05-30 15:00] VITALS: BP 136/70
[2021-05-30 19:00] VITALS: BP 131/80
[2021-05-30] MEDS: traZODone 50 MG TABLET. PO SCH (21:25)
[2021-05-30] MEDS: DULoxetine HCL 30 MG CAPSULE.DR PO SCH (21:25)
[2021-05-30] MEDS: MIRTAZAPINE 15 MG TABLET PO SCH (21:26)
[2021-05-30 23:00] VITALS: BP 149/81
[2021-05-31 03:15] VITALS: BP 137/78
[2021-05-31] MEDS: PIPERACILLIN/TAZOBACTAM 2.25 GM in IV NORMAL SALINE 50ML 50 ML IV SCH ×3 (06:12→21:25)
[2021-05-31 07:00] VITALS: BP 145/84
[2021-05-31] MEDS ORDERED: PERFLUTREN PROTEIN-A MICROSPHR 0.22 MG/ML 3 ML VIAL. IV ONE (08:15)
[2021-05-31] MEDS: SODIUM HYPOCHLORITE 0.125% 473 ML BOTTLE. TP SCH ×2 (09:00→21:00)
[2021-05-31] MEDS: PANTOPRAZOLE 40 MG TABLET.DR. PO SCH (09:12)
[2021-05-31] MEDS: levETIRAcetam 500 MG TABLET PO SCH ×2 (09:12→19:45)
[2021-05-31] MEDS: LACTOBACILLUS RHAMNOSUS GG 1 CAPSULE. PO SCH ×3 (09:12→21:00)
[2021-05-31] MEDS: CYANOCOBALAMIN (VITAMIN B-12) 1,000 MCG TABLET. PO SCH (09:13)
[2021-05-31] MEDS: EZETIMIBE 10 MG TABLET. PO SCH (09:13)
[2021-05-31] MEDS: CHOLECALCIFEROL (VITAMIN D3) 1,000 UNIT TABLET PO SCH (09:13)
[2021-05-31] MEDS: PREGABALIN 75 MG CAPSULE PO SCH ×3 (09:13→21:00)
[2021-05-31] MEDS: ASPIRIN ENTERIC COATED 81 MG TABLET.DR. PO SCH (09:13)
[2021-05-31] MEDS: TOPIRAMATE 100 MG TABLET. PO SCH ×2 (09:13→19:46)
[2021-05-31] MEDS: ATORVASTATIN CALCIUM 10 MG TABLET. PO SCH (09:13)
[2021-05-31] MEDS: INSULIN LISPRO 300 UNITS/3 ML VIAL. SQ SCH ×3 (09:14→17:00)
[2021-05-31] MEDS: METOPROLOL SUCC 24HR ER 50 MG TAB.ER.24H. PO SCH (09:14)
[2021-05-31] MEDS ORDERED: IV NORMAL SALINE 1000ML BAG 1,000 ML IV PRN ×2 (10:15)
[2021-05-31] MEDS ORDERED: ALBUMIN HUMAN 25% 200 ML IV PRN (10:15)
[2021-05-31] MEDS ORDERED: DIALYSIS PATIENT. MC PRN (10:15)
[2021-05-31 10:19] LABS: ALBUMIN 2.2 g/dL (3.4-5.0); ALBUMIN/GLOBULIN RATIO 0.5 (1.0-1.7); CALCIUM 8.1 mg/dL (8.5-10.1); CREATININE 6.4 mg/dL (0.7-1.3); GFR 9.1; TOTAL BILIRUBIN 1.1 mg/dL (0.2-1.0)
--- NOTE | 2021-05-31 10:25 | PDOC ---
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 05/31/21 1025: CARDIO Progress Notes Date and Time Date of Service 05/31/21 Time of Evaluation 1020 Subjective Subjective: No Chest Pain, No shortness of breath, No Palpitations, Other (seen on HD) Vitals Vitals Vital Signs Date Time Temp Pulse Resp B/P (MAP) Pulse Ox O2 Delivery O2 Flow Rate FiO2 05/31/21 09:14 80 137/78 05/31/21 07:00 97.3 16 97 Room Air 97.3 Weight Weight [ ] Input and Output Intake and Output Intake and Output 05/31/21 07:00 # Bowel Movements 1 Laboratory Labs Laboratory Tests Test 05/30/21 11:38 05/30/21 16:18 05/30/21 19:56 05/31/21 07:35 Glucose (Fingerstick) 190 mg/dL (70-99) 207 mg/dL (70-99) 186 mg/dL (70-99) Carbon Dioxide Level 19 mmol/L (21-32) Blood Urea Nitrogen 33 mg/dL (8-26) Creatinine 6.4 mg/dL (0.7-1.3) Estimated GFR (Cockcroft-Gault) 9.1 BUN/Creatinine Ratio 5 (6-20) Glucose Level 209 mg/dL (70-99) Calcium Level 8.1 mg/dL (8.5-10.1) Total Bilirubin 1.1 mg/dL (0.2-1.0) Aspartate Amino Transf (AST/SGOT) 97 U/L (15-37) Alanine Aminotransferase (ALT/SGPT) 59 U/L (16-63) Alkaline Phosphatase 84 U/L (46-116) Total Protein 7.0 g/dL (6.4-8.2) Albumin 2.2 g/dL (3.4-5.0) Albumin/Globulin Ratio 0.5 (1.0-1.7) Test 05/31/21 08:48 Glucose (Fingerstick) 198 mg/dL (70-99) Microbiology Micro Microbiology 05/28/21 Gram Stain - Final, Resulted 05/28/21 Aerobic and Anaerobic Culture - Preliminary, Resulted 05/28/21 Antimicrobic Susceptibility - Preliminary, Resulted 05/26/21 Blood Culture - Final, Complete NO GROWTH AFTER 5 DAYS Review of Systems Constitutional: yes: other (CONFUSED) Physical Exam HEENT: Neck Supple W Full Motion Chest: Symmetric LUNGS: Other (diminished bases ) Heart: RRR Abdomen: Soft N/T Extremities: Other (left TMA- drsg intact ) Neurology: alert, follow commands Assessment Assessment 1. Fevers, COVID + 2. Acute encephalopathy 3. ESRD on HD 4. PAFIB: presently SR 5. CAD: s/p CABG. unclear if any recent w/u, clinically stable 6. HTN; controlled overall 7. DM2 8. S/P L TMA with dehiscence. L BKA recommended, but patient refused 9. Anemia: s/p transfusion. hgb stable. 10. Sepsis 11. Hx of mild CM: past EF at 45%. Limited echo with EF 30-35% 12. Mild to moderate , moderate to severe TR. Estimated PAP 60 mmHg. Recommendations Continued metoprolol for rate control Poor candidate for anticoagulation with anemia and prior hx of SDH. Continue baby ASA for stroke prevention Secondary prevention measures Fluid offloading via HD Continue COVID treatment Supportive care. Outpt ischemic workup if none recent Justicifation of Admission Dx: Justifications for Admission: Justification of Admission Dx: N/A CARRIE MCCLAIN MD 06/01/21 1119: CARDIO Progress Notes Plan Plan Late entry for 05/31/21 Pt. seen and examined. 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 Supportive care. FELICITY CORLEY APRN May 31, 2021 10:25 CARRIE MCCLAIN MD Jun 01, 2021 11:19
--- NOTE | 2021-05-31 11:52 | PDOC ---
Infectious Disease Note Subjective: Subjective Patient is feeling better Vital Signs: Vital Signs Vital Signs Date Time Temp Pulse Resp B/P (MAP) Pulse Ox O2 Delivery O2 Flow Rate FiO2 05/31/21 09:14 80 137/78 05/31/21 08:00 Room Air 05/31/21 07:00 97.3 16 97 97.3 Physical Exam: PHYSICAL EXAM GENERAL: Awake gentleman, not in distress. HEENT: Both pupils are round and reacting. No conjunctival lesion. No lesion in the mouth. NECK: Supple. No JVP, no lymphadenopathy. LUNGS: Clear. HEART: S1, S2, regular. ABDOMEN: Soft, nontender. No organomegaly. EXTREMITIES: There are multiple superficial wounds on to the extremities. Muscle wasting present. full-length TMA incision has dehisced and some purulent drainage coming out NEUROLOGIC: The patient is awake, try to say something, mumbles few words, occasional appropriate nodding. Medications: Inpatient Meds: Medications reviewed. Labs: Lab Laboratory Tests Test 05/30/21 16:18 05/30/21 19:56 05/31/21 07:35 05/31/21 08:48 Glucose (Fingerstick) 207 mg/dL (70-99) 186 mg/dL (70-99) 198 mg/dL (70-99) Sodium Level 144 mmol/L (136-145) Potassium Level 5.0 mmol/L (3.5-5.1) Chloride Level 103 mmol/L (98-107) Carbon Dioxide Level 19 mmol/L (21-32) Anion Gap 22 (6-14) Blood Urea Nitrogen 33 mg/dL (8-26) Creatinine 6.4 mg/dL (0.7-1.3) Estimated GFR (Cockcroft-Gault) 9.1 BUN/Creatinine Ratio 5 (6-20) Glucose Level 209 mg/dL (70-99) Calcium Level 8.1 mg/dL (8.5-10.1) Total Bilirubin 1.1 mg/dL (0.2-1.0) Aspartate Amino Transf (AST/SGOT) 97 U/L (15-37) Alanine Aminotransferase (ALT/SGPT) 59 U/L (16-63) Alkaline Phosphatase 84 U/L (46-116) Total Protein 7.0 g/dL (6.4-8.2) Albumin 2.2 g/dL (3.4-5.0) Albumin/Globulin Ratio 0.5 (1.0-1.7) Micro Micro RUN DATE: 05/29/21 [facility] *LIVE* PAGE 1 RUN TIME: 1126 Specimen Inquiry PATIENT: FER CHAUDHARY ACCT: [id number] LOC: [address] [place] [address] U: [id number] AGE/SX: 55/M ROOM: 2 RE05/26/[address]: KAHLIL WADE MD : 1965 BED: 1 DIS: STATUS: ADM IN TLOC: SPEC #: [id number] CHERIE: 05/26/21 STATUS: RES REQ #: [id number] RECD: 05/27/[address]: KAHLIL WADE MD SOURCE: FOOT ENTR: 05/27/[address]: MACHELLE COPE MD SPDESC: NUBIA COLINDRES MD, ZHIPENG DPTamika ORDERED: ANAER/AEROB/MARICEL COMMENTS: LEFT FOOT SWAB Procedure Result GRAM STAIN Final Final GRAM NEGATIVE RODS:MANY SQUAMOUS EPI CELL:NONE SEEN PMN (WBCs):RARE Unless otherwise specified, Testing Performed by: [address] [address] For Inquires, the Physician may contact the Microbiology department at [phone] ANAEROBIC-AEROBIC CULTURE Preliminary Preliminary MANY [ENTEROBACTER CLOACAE COMPLEX] on 05/28/21 at 1127 FEW [IRA ALBICANS] on 05/28/21 at 1127 ENTEROBACTER CLOACAE COMPLEX IRA ALBICANS ANTIMICROBIAL SUSCEPTIBILITY Preliminary Comment NEG JANI 56 ENTEROBACTER CLOACAE COMPLEX ANTIBIOTIC RESULT INTERPRETATION AMPICILLIN/SULBACTAM >16/8 R AMIKACIN <=16 S AMPICILLIN >16 R AMOXICILLIN/K CLAVULANATE >16/8 R AZTREONAM >16 R CEFTRIAXONE >32 R CEFTAZIDIME <=1 S CEFOTAXIME <=2 S CEFOXITIN <=8 R* CEFAZOLIN >16 R CIPROFLOXACIN <=0.25 S CEFEPIME <=2 S CEFUROXIME >16 R ERTAPENEM <=0.5 S RUN DATE: 05/29/21 [facility] *LIVE* PAGE 2 RUN TIME: 1127 Specimen Inquiry SPEC: [id number] PATIENT: FER CHAUDHARY [id number] (Continued) Procedure Result CONTINUED ON NEXT PAGE RUN DATE: 05/29/21 [facility] *LIVE* PAGE 3 RUN TIME: 1127 Specimen Inquiry SPEC: [id number] PATIENT: JETFER Holguin [id number] (C osei) Procedure Result ANTIMICROBIAL SUSCEPTIBILITY Preliminary (continued) GENTAMICIN <=2 S LEVOFLOXACIN <=0.5 S MEROPENEM <=1 S PIPERACILLIN/TAZOBACTAM >64 R TRIMETHOPRIM/SULFAMETHOXAZOLE <=0.5/9.5 S TETRACYCLINE <=4 S TOBRAMYCIN <=2 S Unless otherwise specified, Testing Performed by: [address] [address] For Inquires, the Physician may contact the Microbiology department at [phone] Objective: Assessment: IMPRESSION: 1. Encephalopathy. 2. COVID-19 positive. 3. Fever. 4. Left foot infection. 5. End-stage renal disease, on hemodialysis. 6. Seizure disorder. 7. Coronary artery disease. 8. Hypertension. 9. Diabetes. Plan: Plan of Care Continue IV Vanc and Zoysn renal dosing Vascular is recommending BKA Antibiotics alone may not be optimal Continue local care will need wound VAC Monitor labs and cults JUAN ALBERTO COPE MD May 31, 2021 11:52
--- NOTE | 2021-05-31 11:57 | PDOC ---
DATE OF SERVICE DATE: 05/31/21 TIME: 11:56 SUBJECTIVE ROS Seen on Dialysis, No complaints No concerns voiced by nursing OBJECTIVE Vital Signs Vital Signs Date Time Temp Pulse Resp B/P (MAP) Pulse Ox O2 Delivery O2 Flow Rate FiO2 05/31/21 09:14 80 137/78 05/31/21 08:00 Room Air 05/31/21 07:00 97.3 16 97 97.3 I & 0 Intake and Output 05/31/21 07:00 # Bowel Movements 1 PHYSICAL EXAM Physical Exam GENERAL:not in distress. HEENT: Both pupils are round and reacting. OM moist NECK: Supple. No JVP, no lymphadenopathy. LUNGS: Clear. HEART: S1, S2, regular. ABDOMEN: Soft, nontender. No organomegaly. EXTREMITIES: There are multiple superficial wounds on to the extremities. Muscle wasting present. full-length TMA incision has dehisced and some purulent drainage coming out NEUROLOGIC: The patient is awake,mumbles few words, occasional appropriate nodding. DIAGNOSIS/ASSESSMENT Assessment & Plan ESRD - on HD MWF, seen during treatment , tolerating well. Continue as ordered. Colten PEREZ Encephalopathy- Neurology following Anemia- Continue Retacrit COVID-19 positive.On RA Left foot infection. Currently on Abx. Vascular is recommending BKA Coronary artery disease. Hypertension. Diabetes. COMMENT/RELEVANT DATA Meds Current Medications Medications (Trade) Dose Ordered Sig/Babak Start Time Stop Time Status Last Admin Dose Admin Acetaminophen (Tylenol) 650 mg PRN Q4HRS PRN 05/26/21 03:30 05/27/21 03:29 DC Albumin Human 200 ml @ 200 mls/hr 1X PRN PRN 05/31/21 10:15 05/31/21 16:14 Aspirin (Ecotrin) 81 mg DAILY 05/26/21 14:00 05/31/21 09:13 81 MG Atorvastatin Calcium (Lipitor) 10 mg DAILY 05/26/21 14:00 05/31/21 09:13 10 MG Cyanocobalamin (Vitamin B-12) 1,000 mcg DAILY 05/27/21 09:00 05/31/21 09:13 1,000 MCG Dextrose (Dextrose 50%-Water Syringe) 12.5 gm PRN Q15MIN PRN 05/26/21 12:45 Duloxetine HCl (Cymbalta) 60 mg HS 05/26/21 21:00 1/16/22 21:25 60 MG Epoetin Catalino-epbx (RETACRIT for ESRD PTS) 10,000 unit MoWeFr@2100 05/26/21 21:00 05/28/21 21:45 10,000 UNIT EZETIMIBE (Zetia) 10 mg DAILY 05/26/21 14:00 05/31/21 09:13 10 MG Info (PHARMACY MONITORING -- do not chart) 1 each PRN DAILY PRN 05/31/21 10:15 Insulin Human Lispro (HumaLOG) 0-5 UNITS TIDWMEALS 05/26/21 17:00 05/31/21 09:14 2 UNITS Lactobacillus Rhamnosus (Culturelle) 1 cap BID 05/26/21 21:00 05/31/21 09:12 1 CAP Levetiracetam (Keppra) 500 mg BID 05/30/21 09:00 05/31/21 09:12 500 MG Metoprolol Succinate (Toprol Xl) 50 mg DAILY 05/28/21 14:00 05/31/21 09:14 50 MG Mirtazapine (Remeron) 45 mg QHS 05/26/21 21:00 05/30/21 21:26 45 MG Non-Formulary Medication (Icosapent Ethyl (Vascepa)) 2 cap BID 05/26/21 21:00 UNV Ondansetron HCl (Zofran) 4 mg PRN Q8HRS PRN 05/26/21 03:30 05/27/21 03:29 DC Pantoprazole Sodium (Protonix) 40 mg DAILYAC 05/26/21 14:00 05/31/21 09:12 40 MG Perflutren Protein Type A Microsphe (Optison) 0.66 mg 1X ONCE 05/31/21 08:15 05/31/21 08:16 DC Piperacillin Sod/ Tazobactam Sod (Zosyn Per Pharmacy) 1 each PRN DAILY PRN 05/26/21 01:30 Piperacillin Sod/ Tazobactam Sod 2.25 gm/Sodium Chloride 50 ml @ 100 mls/hr Q8HRS 05/26/21 08:00 05/31/21 06:12 100 MLS/HR Piperacillin Sod/ Tazobactam Sod 3.375 gm/Sodium Chloride 50 ml @ 100 mls/hr 1X ONCE 05/26/21 02:15 05/26/21 02:44 DC 05/26/21 03:25 100 MLS/HR Pregabalin (Lyrica) 225 mg BID 05/26/21 14:00 05/31/21 09:13 225 MG Promethazine HCl (Phenergan) 25 mg PRN Q6HRS PRN 05/26/21 13:00 Sodium Hypochlorite (Dakin'S 05/18 Strength) 1 lópez BID 05/26/21 11:00 05/31/21 09:00 1 LÓPEZ Sodium Chloride 1,000 ml @ 400 mls/hr Q2H30M PRN 05/31/21 10:15 05/31/21 22:14 Sodium Chloride (Normal Saline Flush) 10 ml 1X PRN PRN 05/28/21 11:45 05/29/21 11:44 DC Topiramate (Topamax) 100 mg BID 05/26/21 14:00 05/31/21 09:13 100 MG Trazodone HCl (Desyrel) 50 mg QHS 05/26/21 21:00 05/30/21 21:25 50 MG Vancomycin HCl (Vanco Per Pharmacy) 1 each PRN DAILY PRN 05/26/21 03:15 05/27/21 09:27 1 EACH Vancomycin HCl (Vancomycin Random Level) 1 each 1X ONCE 06/02/21 06:00 06/02/21 06:01 Vancomycin HCl 1.75 gm/Sodium Chloride 500 ml @ 250 mls/hr 1X ONCE 05/26/21 06:00 05/26/21 07:59 DC 05/26/21 05:47 250 MLS/HR Vitamin D (Vitamin D3) 1,000 unit DAILY 05/26/21 14:00 05/31/21 09:13 1,000 UNIT Lab Laboratory Tests Test 05/30/21 16:18 05/30/21 19:56 05/31/21 07:35 05/31/21 08:48 Glucose (Fingerstick) 207 mg/dL (70-99) 186 mg/dL (70-99) 198 mg/dL (70-99) Sodium Level 144 mmol/L (136-145) Potassium Level 5.0 mmol/L (3.5-5.1) Chloride Level 103 mmol/L (98-107) Carbon Dioxide Level 19 mmol/L (21-32) Anion Gap 22 (6-14) Blood Urea Nitrogen 33 mg/dL (8-26) Creatinine 6.4 mg/dL (0.7-1.3) Estimated GFR (Cockcroft-Gault) 9.1 BUN/Creatinine Ratio 5 (6-20) Glucose Level 209 mg/dL (70-99) Calcium Level 8.1 mg/dL (8.5-10.1) Total Bilirubin 1.1 mg/dL (0.2-1.0) Aspartate Amino Transf (AST/SGOT) 97 U/L (15-37) Alanine Aminotransferase (ALT/SGPT) 59 U/L (16-63) Alkaline Phosphatase 84 U/L (46-116) Total Protein 7.0 g/dL (6.4-8.2) Albumin 2.2 g/dL (3.4-5.0) Albumin/Globulin Ratio 0.5 (1.0-1.7) Results All relevant outside records, renal labs, imaging studies, telemetry/EKG's were reviewed. Justicifation of Admission Dx: Justifications for Admission: Justification of Admission Dx: N/A JUSTIN LARKIN MD May 31, 2021 11:57
--- NOTE | 2021-05-31 11:59 | PDOC ---
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 History of psychogenic nonepileptic seizures, still taking levetiracetam Anemia, end-stage renal disease on dialysis, left foot infection, COVID-19 infection, probable sepsis, malnutrition hypotension, diabetes with neuropathy Note vascular recommendations for possible left below the knee amputation, which the patient has refused Plan Continue to treat medical issues No additional neurological investigations required Subjective None Objective Vital Signs Date Time Temp Pulse Resp B/P (MAP) Pulse Ox O2 Delivery O2 Flow Rate FiO2 05/31/21 09:14 80 137/78 05/31/21 08:00 Room Air 05/31/21 07:00 97.3 16 97 97.3 Intake and Output 05/31/21 07:00 # Bowel Movements 1 PHYSICAL EXAM Alert. Oriented to person PERRL. EOMI. CN: no focal findings. Muscle tone: normal. Muscle strength: 3/5 DTR: 0+ Plantar reflex: Flexor Gait: not examined in bed. Sensory exam: Stocking loss. No cerebellar signs elicited. Review of Relevant I have reviewed the following items yifan (where applicable) has been applied. Labs Laboratory Tests Test 05/29/21 12:05 05/29/21 12:10 05/29/21 17:32 05/29/21 20:42 Stool Occult Blood Negative (NEG) Glucose (Fingerstick) 171 mg/dL (70-99) 191 mg/dL (70-99) 242 mg/dL (70-99) Test 05/30/21 07:20 05/30/21 08:10 05/30/21 11:38 05/30/21 16:18 Hemoglobin 9.1 g/dL (13.0-17.5) Hematocrit 29.2 % (39.0-53.0) Glucose (Fingerstick) 198 mg/dL (70-99) 190 mg/dL (70-99) 207 mg/dL (70-99) Test 05/30/21 19:56 05/31/21 07:35 05/31/21 08:48 Glucose (Fingerstick) 186 mg/dL (70-99) 198 mg/dL (70-99) Sodium Level 144 mmol/L (136-145) Potassium Level 5.0 mmol/L (3.5-5.1) Chloride Level 103 mmol/L (98-107) Carbon Dioxide Level 19 mmol/L (21-32) Anion Gap 22 (6-14) Blood Urea Nitrogen 33 mg/dL (8-26) Creatinine 6.4 mg/dL (0.7-1.3) Estimated GFR (Cockcroft-Gault) 9.1 BUN/Creatinine Ratio 5 (6-20) Glucose Level 209 mg/dL (70-99) Calcium Level 8.1 mg/dL (8.5-10.1) Total Bilirubin 1.1 mg/dL (0.2-1.0) Aspartate Amino Transf (AST/SGOT) 97 U/L (15-37) Alanine Aminotransferase (ALT/SGPT) 59 U/L (16-63) Alkaline Phosphatase 84 U/L (46-116) Total Protein 7.0 g/dL (6.4-8.2) Albumin 2.2 g/dL (3.4-5.0) Albumin/Globulin Ratio 0.5 (1.0-1.7) Laboratory Tests Test 05/30/21 16:18 05/30/21 19:56 05/31/21 07:35 05/31/21 08:48 Glucose (Fingerstick) 207 mg/dL (70-99) 186 mg/dL (70-99) 198 mg/dL (70-99) Sodium Level 144 mmol/L (136-145) Potassium Level 5.0 mmol/L (3.5-5.1) Chloride Level 103 mmol/L (98-107) Carbon Dioxide Level 19 mmol/L (21-32) Anion Gap 22 (6-14) Blood Urea Nitrogen 33 mg/dL (8-26) Creatinine 6.4 mg/dL (0.7-1.3) Estimated GFR (Cockcroft-Gault) 9.1 BUN/Creatinine Ratio 5 (6-20) Glucose Level 209 mg/dL (70-99) Calcium Level 8.1 mg/dL (8.5-10.1) Total Bilirubin 1.1 mg/dL (0.2-1.0) Aspartate Amino Transf (AST/SGOT) 97 U/L (15-37) Alanine Aminotransferase (ALT/SGPT) 59 U/L (16-63) Alkaline Phosphatase 84 U/L (46-116) Total Protein 7.0 g/dL (6.4-8.2) Albumin 2.2 g/dL (3.4-5.0) Albumin/Globulin Ratio 0.5 (1.0-1.7) Microbiology 05/28/21 Gram Stain - Final, Resulted 05/28/21 Aerobic and Anaerobic Culture - Preliminary, Resulted 05/28/21 Antimicrobic Susceptibility - Preliminary, Resulted 05/26/21 Blood Culture - Final, Complete NO GROWTH AFTER 5 DAYS Medications Current Medications Sodium Chloride 1,000 ml @ 1,000 mls/hr 1X ONCE IV ; Start 05/26/21 at 01:30; Stop 05/26/21 at 02:29; Status DC Piperacillin Sod/ Tazobactam Sod (Zosyn Per Pharmacy) 1 each PRN DAILY PRN MC SEE COMMENTS; Start 05/26/21 at 01:30 Piperacillin Sod/ Tazobactam Sod 3.375 gm/Sodium Chloride 50 ml @ 100 mls/hr 1X ONCE IV Last administered on 05/26/21at 03:25; Start 05/26/21 at 02:15; Stop 05/26/21 at 02:44; Status DC Vancomycin HCl (Vanco Per Pharmacy) 1 each PRN DAILY PRN MC SEE COMMENTS Last administered on 05/27/21at 09:27; Start 05/26/21 at 03:15 Sodium Chloride 500 ml @ 500 mls/hr 1X ONCE IV Last administered on 05/26/21at 03:25; Start 05/26/21 at 03:30; Stop 05/26/21 at 04:29; Status DC Ondansetron HCl (Zofran) 4 mg PRN Q8HRS PRN IVP NAUSEA/VOMITING; Start 05/26/21 at 03:30; Stop 05/27/21 at 03:29; Status DC Acetaminophen (Tylenol) 650 mg PRN Q4HRS PRN PO FEVER > 100.3'F; Start 05/26/21 at 03:30; Stop 05/27/21 at 03:29; Status DC Insulin Human Lispro (HumaLOG) 0-5 UNITS TIDWMEALS SQ Last administered on 05/26/21at 09:09; Start 05/26/21 at 08:00; Stop 05/26/21 at 12:46; Status DC Dextrose (Dextrose 50%-Water Syringe) 12.5 gm PRN Q15MIN PRN IV SEE COMMENTS; Start 05/26/21 at 03:30; Status Cancel Vancomycin HCl 1.75 gm/Sodium Chloride 500 ml @ 250 mls/hr 1X ONCE IV Last administered on 05/26/21at 05:47; Start 05/26/21 at 06:00; Stop 05/26/21 at 07:59; Status DC Piperacillin Sod/ Tazobactam Sod 2.25 gm/Sodium Chloride 50 ml @ 100 mls/hr Q8HRS IV Last administered on 05/31/21at 06:12; Start 05/26/21 at 08:00 Sodium Hypochlorite (Dakin'S 1/4 Strength) 1 lópez BID TP Last administered on 05/31/21at 09:00; Start 05/26/21 at 11:00 Aspirin (Ecotrin) 81 mg DAILY PO Last administered on 05/31/21at 09:13; Start 05/26/21 at 14:00 Atorvastatin Calcium (Lipitor) 10 mg DAILY PO Last administered on 05/31/21at 09:13; Start 05/26/21 at 14:00 Cyanocobalamin (Vitamin B-12) 1,000 mcg DAILY PO Last administered on 05/31/21at 09:13; Start 05/27/21 at 09:00 EZETIMIBE (Zetia) 10 mg DAILY PO Last administered on 05/31/21at 09:13; Start 05/26/21 at 14:00 Topiramate (Topamax) 100 mg BID PO Last administered on 05/31/21at 09:13; Start 05/26/21 at 14:00 Trazodone HCl (Desyrel) 50 mg QHS PO Last administered on 05/30/21at 21:25; Start 05/26/21 at 21:00 Vitamin D (Vitamin D3) 1,000 unit DAILY PO Last administered on 05/31/21at 09:13; Start 05/26/21 at 14:00 Duloxetine HCl (Cymbalta) 60 mg HS PO Last administered on 05/30/21at 21:25; Start 05/26/21 at 21:00 Non-Formulary Medication (Icosapent Ethyl (Vascepa)) 2 cap BID PO ; Start 05/26/21 at 21:00; Status UNV Mirtazapine (Remeron) 45 mg QHS PO Last administered on 05/30/21at 21:26; Start 05/26/21 at 21:00 Pantoprazole Sodium (Protonix) 40 mg DAILYAC PO Last administered on 05/31/21at 09:12; Start 05/26/21 at 14:00 Pregabalin (Lyrica) 225 mg BID PO Last administered on 05/31/21at 09:13; Start 05/26/21 at 14:00 Promethazine HCl (Phenergan) 25 mg PRN Q6HRS PRN PO NAUSEA/VOMITING; Start 05/26/21 at 13:00 Levetiracetam 100 ml @ 400 mls/hr Q12HR IV ; Start 05/26/21 at 21:00; Status UNV Insulin Human Lispro (HumaLOG) 0-5 UNITS TIDWMEALS SQ Last administered on 05/31/21at 09:14; Start 05/26/21 at 17:00 Dextrose (Dextrose 50%-Water Syringe) 12.5 gm PRN Q15MIN PRN IV SEE COMMENTS; Start 05/26/21 at 12:45 Levetiracetam (Keppra) 500 mg BID PO ; Start 05/26/21 at 14:00; Status Cancel Lactobacillus Rhamnosus (Culturelle) 1 cap BID PO Last administered on 05/31/21at 09:12; Start 05/26/21 at 21:00 Levetiracetam 100 ml @ 400 mls/hr Q12HR IV Last administered on 05/29/21at 21:38; Start 05/26/21 at 14:00; Stop 05/29/21 at 23:00; Status DC Epoetin Catalino-epbx (RETACRIT for ESRD PTS) 10,000 unit MoWeFr@2100 SQ Last administered on 05/28/21at 21:45; Start 05/26/21 at 21:00 Vancomycin HCl (Vancomycin Random Level) 1 each 1X ONCE MC Last administered on 05/27/21at 05:00; Start 05/27/21 at 05:00; Stop 05/27/21 at 05:01; Status DC Info (PHARMACY MONITORING -- do not chart) 1 each PRN DAILY PRN MC SEE COMMENTS; Start 05/26/21 at 18:30; Status Cancel Vancomycin HCl (Vancomycin Random Level) 1 each 1X ONCE MC Last administered on 05/29/21at 06:00; Start 05/29/21 at 06:00; Stop 05/29/21 at 06:01; Status DC Sodium Chloride 1,000 ml @ 1,000 mls/hr Q1H PRN IV hypotension; Start 05/28/21 at 11:45; Stop 05/28/21 at 17:44; Status DC Sodium Chloride (Normal Saline Flush) 10 ml 1X PRN PRN IV AP catheter pack; Start 05/28/21 at 11:45; Stop 05/29/21 at 11:44; Status DC Sodium Chloride (Normal Saline Flush) 10 ml 1X PRN PRN IV ENERGY TRADER catheter pack; Start 05/28/21 at 11:45; Stop 05/29/21 at 11:44; Status DC Sodium Chloride 1,000 ml @ 400 mls/hr Q2H30M PRN IV PATENCY; Start 05/28/21 at 11:45; Stop 05/28/21 at 23:44; Status DC Info (PHARMACY MONITORING -- do not chart) 1 each PRN DAILY PRN MC SEE COMMENTS; Start 05/28/21 at 11:45; Status UNV Info (PHARMACY MONITORING -- do not chart) 1 each PRN DAILY PRN MC SEE COMMENTS; Start 05/28/21 at 11:45; Status UNV Metoprolol Succinate (Toprol Xl) 50 mg DAILY PO Last administered on 05/31/21at 09:14; Start 05/28/21 at 14:00 Vancomycin HCl (Vancomycin Random Level) 1 each 1X ONCE MC ; Start 06/02/21 at 06:00; Stop 06/02/21 at 06:01 Levetiracetam (Keppra) 500 mg BID PO Last administered on 05/31/21at 09:12; Start 05/30/21 at 09:00 Perflutren Protein Type A Microsphe (Optison) 0.66 mg 1X ONCE IV ; Start 05/31/21 at 08:15; Stop 05/31/21 at 08:16; Status DC Sodium Chloride 1,000 ml @ 1,000 mls/hr Q1H PRN IV hypotension; Start 05/31/21 at 10:15; Stop 05/31/21 at 16:14 Albumin Human 200 ml @ 200 mls/hr 1X PRN PRN IV Hypotension; Start 05/31/21 at 10:15; Stop 05/31/21 at 16:14 Sodium Chloride 1,000 ml @ 400 mls/hr Q2H30M PRN IV PATENCY; Start 05/31/21 at 10:15; Stop 05/31/21 at 22:14 Info (PHARMACY MONITORING -- do not chart) 1 each PRN DAILY PRN MC SEE COMMENTS; Start 05/31/21 at 10:15 Active Scripts Active Metoprolol Succinate 50 Mg Tab.er.24h 50 Mg PO DAILY 30 Days Levetiracetam 500 Mg Tablet 500 Mg PO BID 30 Days Reported Trazodone Hcl 50 Mg Tablet 1 Tab PO QHS Xultophy 100 Unit-3.6 mg/ml (Insulin Degludec/Liraglutide) 3 Ml Insuln.pen 24 Ml SQ HS Vitamin D (Cholecalciferol (Vitamin D3)) 1,000 Unit Capsule 1 Cap PO DAILY Atorvastatin Calcium 10 Mg Tablet 10 Mg PO DAILY Sildenafil (Sildenafil Citrate) 20 Mg Tablet 20 Mg PO TID Zetia (Ezetimibe) 10 Mg Tablet 10 Mg PO DAILY Omeprazole 40 Mg Capsule. 40 Mg PO DAILY Topiramate 100 Mg Tablet 100 Mg PO BID Promethazine Hcl 25 Mg Tablet 25 Mg PO Q6H PRN B-12 (Cyanocobalamin (Vitamin B-12)) 1,000 Mcg Tablet 1,000 Mcg PO DAILY Vascepa (Icosapent Ethyl) 1 Gm Capsule 2 Cap PO BID Aspirin Ec (Aspirin) 81 Mg Tablet.dr 81 Mg PO DAILY Duloxetine Hcl 60 Mg Capsule.dr 60 Mg PO HS Lyrica (Pregabalin) 225 Mg Capsule 225 Mg PO BID Losartan-Hctz 100-25 Mg Tab (Losartan/Hydrochlorothiazide) 1 Each Tablet 25 Mg PO DAILY Mirtazapine 45 Mg Tablet 45 Mg PO HS Amlodipine Besylate 5 Mg Tablet 5 Mg PO DAILY Vitals/I & O Vital Sign - Last 24 Hours 05/30/21 05/30/21 05/30/21 05/30/21 15:00 19:00 20:30 23:00 Temp 98.8 97.4 97.3 98.8 97.4 97.3 Pulse 74 76 81 Resp 16 16 16 B/P (MAP) 136/70 (92) 131/80 (97) 149/81 (103) Pulse Ox 97 97 98 O2 Delivery Room Air Room Air Room Air Room Air 05/31/21 05/31/21 05/31/21 05/31/21 03:15 07:00 08:00 09:14 Temp 97.7 97.3 97.7 97.3 Pulse 80 84 80 Resp 18 16 B/P (MAP) 137/78 (97) 145/84 (104) 137/78 Pulse Ox 99 97 O2 Delivery Room Air Room Air Room Air Justicifation of Admission Dx: Justifications for Admission: Justification of Admission Dx: N/A PAOLA DICK MD May 31, 2021 11:59
--- NOTE | 2021-05-31 12:25 | NUR ---
SW following. Discussed with RN, pt from [facility], room air, renal diet, COVID-19 positive. Pt refusing the left BKA. Currently on IV abx. [facility] checking if they can do q8 abx, can take pt with a wound vac. MARIANO will continue to follow. Addendum: 05/31/21 at 1230 by KYLAH QUINTANA MARIANO just received a call from Italo at [facility] - they no longer have a bed for this patient as their unit holding COVID from their facility is now full. MARIANO will need to find alternate placement for this patient.
--- NOTE | 2021-05-31 13:51 | NUR ---
Wound Care; Laceration to L lateral eyebrow is approximated with steristrips, and is dry, SEMAJ. This treatment is appropriate for the wound, as it is superficial. Additional wounds to feet are under the treatment of Dr. Welch and do not require wound care's services at this time. Wound care to sign off. Please reach out if new issues arise.
[2021-05-31 15:00] VITALS: BP 145/87
--- NOTE | 2021-05-31 17:13 | CARD ---
MR#: [id number] Date of Study: 05/31/2021 Ordering Physician: TEJAL GUO, Referring Physician: TEJAL GUO Tech: Estela James [facility] APPROVED REPORT EXAM: Two-dimensional and M-mode echocardiogram with Doppler and color Doppler. Other Information Quality : GoodHR: 80bpm Rhythm : Atrial Fibrillation INDICATION Cardiomyopathy RISK FACTORS Hypertension 2D DIMENSIONS Left Atrium(2D)5.1 (1.6-4.0cm)IVSd1.4 (0.7-1.1cm) Aortic Root(2D)3.2 (2.0-3.7cm)LVDd5.2 (3.9-5.9cm) LVOT Diameter2.0 (1.8-2.4cm)PWd1.0 (0.7-1.1cm) LVDs4.7 (2.5-4.0cm)FS (%) 10.2 % SV29.2 ml Tricuspid Valve TR P. [id number]/sTR Peak Gr.48mmHg LEFT VENTRICLE The left ventricle is normal size. There is borderline concentric left ventricular hypertrophy. The e jection fraction is moderately to severely impaired. Estimated ejection fraction 30-35%. There is dinora bal hypokinesis of the left ventricle. RIGHT VENTRICLE The right ventricle is normal size. There is normal right ventricular wall thickness. Systolic functi on is mildly reduced. ATRIA The left atrium is borderline dilated. The right atrium is mildly dilated. The interatrial septum is intact with no evidence for an atrial septal defect or patent foramen ovale as noted on 2-D or Dopple r imaging. AORTIC VALVE The aortic valve is calcified and displays decreased opening. Doppler and Color Flow revealed trace a ortic regurgitation. There is mild to moderate valvular aortic stenosis. MITRAL VALVE The mitral valve is normal in structure and function. There is no evidence of mitral valve prolapse. There is no mitral valve stenosis. Doppler and Color-flow revealed mild mitral regurgitation. TRICUSPID VALVE The tricuspid valve is normal in structure and function. Doppler and Color Flow revealed moderate to moderately severe tricuspid regurgitation. Estimated PAP 60 mmHg. There is no tricuspid valve stenosi s. GREAT VESSELS The aortic root is normal in size. The ascending aorta is normal in size. The IVC is dilated and graham apses <50% with inspiration. PERICARDIAL EFFUSION There is no evidence of significant pericardial effusion. Critical Notification Critical Value: No <Conclusion> The left ventricle is normal size. The ejection fraction is moderately to severely impaired. Estimated ejection fraction 30-35%. There is global hypokinesis of the left ventricle. There is borderline concentric left ventricular hypertrophy. Doppler and Color Flow revealed trace aortic regurgitation. There is mild to moderate valvular aortic stenosis. Doppler and Color-flow revealed mild mitral regurgitation. Doppler and Color Flow revealed moderate to moderately severe tricuspid regurgitation. Estimated PAP 60 mmHg. Signed by : Tim Head MD Electronically Approved : 05/31/2021 17:13:01
--- NOTE | 2021-05-31 18:58 | PN ---
DATE: 05/31/2021 SUBJECTIVE: The patient is resting, slightly propped up in bed, in no apparent distress, awake, responding appropriately as myoclonic jerks; however, he denied any complaint. Nursing staff did not voice any concerns. He obviously requires wound care and wound VAC together with IV antibiotic and hemodialysis and I spoke with the social worker palliative care to see if he can qualifies to go to [facility] as he will need probably extended period of antibiotic therapy. PHYSICAL EXAMINATION: GENERAL: When I examined him, he was pale, not jaundiced, cyanosed, no lymphadenopathy, no thyromegaly. No jugular venous distention. No limb edema. VITAL SIGNS: His heart rate was 80, blood pressure is 137/78, temperature was 97.3, respiratory rate was 16 and oxygen saturation was 97% on room air. HEAD, EYES, EARS, NOSE, AND THROAT: Showed normocephalic, atraumatic. NECK: Supple. HEART: Showed normal first and second heart sounds. No gallop, rub or murmur. CHEST: Clear to auscultation, no crepitation or rhonchi. ABDOMEN: Distended, soft, nontender. NEUROLOGIC: He was awake, alert, responding appropriately. All cranial nerves intact. He moves upper extremities without difficulty, is mostly bedbound. He is status post left transmetatarsal amputation with dehiscence of the wound, infection that is infected. His intake and output are incompletely recorded. LABORATORY DATA: Showed his blood sugar seems to be reasonably controlled. His H and H as of yesterday was 9.1 and 29. ASSESSMENT: 1. The patient is status post left transmetatarsal amputation with dehiscence of the wound and large eschar on the dorsum of the left foot. He was seen by the vascular surgeon as recommended by the mechanical service specialist and he recommended right below-knee amputation; however, the patient declined this option. Patient will require extended period of antibiotic treatment as well as wound VAC. 2. He has asymptomatic COVID-19 infection. 3. He has end-stage renal disease, on hemodialysis Monday, Monday, Monday. 4. Type 1 diabetes mellitus with triopathy. 5. Atrial fibrillation. 6. Coronary artery disease status post coronary artery bypass graft surgery. 7. Ischemic cardiomyopathy. 8. Hypertension. 9. Cerebrovascular accident. 10. Peripheral neuropathy. 11. 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 12. Seizure disorder. PLAN: To continue with wound care and wound vacuum-assisted closure device. Continue with IV antibiotic. Continue with hemodialysis. Continue to monitor his blood sugar and adjust insulin as needed. He will be referred to [facility] to see if he qualifies to go there. RADHA/LEELEE DR: Tyler TID: [id number]
[2021-05-31 19:00] VITALS: BP 122/71
[2021-05-31] MEDS: DULoxetine HCL 30 MG CAPSULE.DR PO SCH ×2 (19:45→21:00)
[2021-05-31] MEDS: traZODone 50 MG TABLET. PO SCH ×2 (19:46→21:00)
[2021-05-31] MEDS: MIRTAZAPINE 15 MG TABLET PO SCH ×2 (19:46→21:00)
[2021-05-31] MEDS: EPOETIN ALFA-EPBX for ESRD 20,000 UNIT/ML VIAL. SQ SCH (21:18)
[2021-05-31 23:00] VITALS: BP 133/77
[2021-06-01 03:00] VITALS: BP 149/79
[2021-06-01] MEDS: PIPERACILLIN/TAZOBACTAM 2.25 GM in IV NORMAL SALINE 50ML 50 ML IV SCH ×3 (05:37→20:54)
[2021-06-01 07:00] VITALS: BP 133/77
[2021-06-01] MEDS: INSULIN LISPRO 300 UNITS/3 ML VIAL. SQ SCH ×3 (08:00→16:34)
[2021-06-01] MEDS: SODIUM HYPOCHLORITE 0.125% 473 ML BOTTLE. TP SCH ×2 (09:00→20:55)
--- NOTE | 2021-06-01 09:05 | PDOC ---
Provider Note Date of Service: DATE: 06/01/21 TIME: 09:02 Provider Note Provider Note Vascular Chart reviewed, nurse reports patient is still not agreeable to BKA and plan is for transfer to residential. A/P: Nonhealing left transmetatarsal amputation with significant eschar on the dorsum of the foot. Diabetes, ESRD and COVID +. Recommend left below-knee amputation. He continues to refuse this option. Should he consent to below-knee amputation, then we can proceed. Otherwise recommend dry gauze dressing and IV antibiotics. Justicifation of Admission Dx: Justifications for Admission: Justification of Admission Dx: N/A JALYN HUNT APRN Jun 01, 2021 09:05
[2021-06-01] MEDS: ASPIRIN ENTERIC COATED 81 MG TABLET.DR. PO SCH (09:07)
[2021-06-01] MEDS: CYANOCOBALAMIN (VITAMIN B-12) 1,000 MCG TABLET. PO SCH (09:07)
[2021-06-01] MEDS: PANTOPRAZOLE 40 MG TABLET.DR. PO SCH (09:07)
[2021-06-01] MEDS: ATORVASTATIN CALCIUM 10 MG TABLET. PO SCH (09:07)
[2021-06-01] MEDS: CHOLECALCIFEROL (VITAMIN D3) 1,000 UNIT TABLET PO SCH (09:07)
[2021-06-01] MEDS: levETIRAcetam 500 MG TABLET PO SCH ×2 (09:07→20:54)
[2021-06-01] MEDS: EZETIMIBE 10 MG TABLET. PO SCH (09:07)
[2021-06-01] MEDS: LACTOBACILLUS RHAMNOSUS GG 1 CAPSULE. PO SCH ×2 (09:08→20:53)
[2021-06-01] MEDS: PREGABALIN 75 MG CAPSULE PO SCH ×2 (09:08→20:54)
[2021-06-01] MEDS: TOPIRAMATE 100 MG TABLET. PO SCH ×2 (09:08→20:54)
[2021-06-01] MEDS: METOPROLOL SUCC 24HR ER 50 MG TAB.ER.24H. PO SCH (09:08)
--- NOTE | 2021-06-01 09:40 | PDOC ---
Infectious Disease Note Subjective: Subjective Patient is feeling better Vital Signs: Vital Signs Vital Signs Date Time Temp Pulse Resp B/P (MAP) Pulse Ox O2 Delivery O2 Flow Rate FiO2 06/01/21 09:08 70 133/77 06/01/21 07:00 96.3 18 100 Room Air 96.3 Physical Exam: PHYSICAL EXAM MentalGENERAL: Awake gentleman, not in distress. HEENT: Both pupils are round and reacting. No conjunctival lesion. No lesion in the mouth. NECK: Supple. No JVP, no lymphadenopathy. LUNGS: Clear. HEART: S1, S2, regular. ABDOMEN: Soft, nontender. No organomegaly. EXTREMITIES: There are multiple superficial wounds on to the extremities. Muscle wasting present. Left foot reveals dehiscence of the amputation site. Large area involved with gangrenous eschar NEUROLOGIC: The patient is awake, try to say something, mumbles few words, occasional appropriate nodding. Medications: Inpatient Meds: Medications reviewed. Labs: Lab Laboratory Tests Test 05/31/21 17:12 05/31/21 20:59 06/01/21 07:59 Glucose (Fingerstick) 122 mg/dL (70-99) 123 mg/dL (70-99) 143 mg/dL (70-99) Micro Micro RUN DATE: 05/29/21 [facility] LAB *LIVE* PAGE 1 RUN TIME: 1127 Specimen Inquiry PATIENT: FER CHAUDHARY ACCT: [id number] LOC: [address] [place] [address] U: [id number] AGE/SX: 55/M ROOM: 582 RE05/26/[address]: KAHLIL WADE MD : 1965 BED: 1 DIS: STATUS: ADM IN TLOC: SPEC #: [id number] CHERIE: 05/26/21 STATUS: RES REQ #: [id number] RECD: 05/27/[address]: KAHLIL WADE MD SOURCE: FOOT ENTR: 05/27/[address]: MACHELLE COPE MD SPDESC: NUBIA COLINDRES MD, ZHIPENG DPM ORDERED: ANAER/AERVALERIE/MARICEL COMMENTS: LEFT FOOT SWAB Procedure Result GRAM STAIN Final Final GRAM NEGATIVE RODS:MANY SQUAMOUS EPI CELL:NONE SEEN PMN (WBCs):RARE Unless otherwise specified, Testing Performed by: [address] [address] For Inquires, the Physician may contact the Microbiology department at [phone] ANAEROBIC-AEROBIC CULTURE Preliminary Preliminary MANY [ENTEROBACTER CLOACAE COMPLEX] on 05/28/21 at 1127 FEW [IRA ALBICANS] on 05/28/21 at 1127 ENTEROBACTER CLOACAE COMPLEX IRA ALBICANS ANTIMICROBIAL SUSCEPTIBILITY Preliminary Comment NEG JANI 56 ENTEROBACTER CLOACAE COMPLEX ANTIBIOTIC RESULT INTERPRETATION AMPICILLIN/SULBACTAM >16/8 R AMIKACIN <=16 S AMPICILLIN >16 R AMOXICILLIN/K CLAVULANATE >16/8 R AZTREONAM >16 R CEFTRIAXONE >32 R CEFTAZIDIME <=1 S CEFOTAXIME <=2 S CEFOXITIN <=8 R* CEFAZOLIN >16 R CIPROFLOXACIN <=0.25 S CEFEPIME <=2 S CEFUROXIME >16 R ERTAPENEM <=0.5 S RUN DATE: 05/29/21 [facility] *LIVE* PAGE 2 RUN TIME: 1126 Specimen Inquiry SPEC: [id number] PATIENT: FER CHAUDHARY [id number] (Continued) Procedure Result CONTINUED ON NEXT PAGE RUN DATE: 05/29/21 [facility] *LIVE* PAGE 3 RUN TIME: 1127 Specimen Inquiry SPEC: [id number] PATIENT: FER CHAUDHARY [id number] (Continued) Procedure Result --- --------- ANTIMICROBIAL SUSCEPTIBILITY Preliminary (continued) GENTAMICIN <=2 S LEVOFLOXACIN <=0.5 S MEROPENEM <=1 S PIPERACILLIN/TAZOBACTAM >64 R TRIMETHOPRIM/SULFAMETHOXAZOLE <=0.5/9.5 S TETRACYCLINE <=4 S TOBRAMYCIN <=2 S Unless otherwise specified, Testing Performed by: [address] [address] For Inquires, the Physician may contact the Microbiology department at [phone] Objective: Assessment: 1. Encephalopathy. 2. COVID-19 positive. 3. Fever. Resolved 4. 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 Patient is refusing left BKA ESR 54, CRP 149. 5. End-stage renal disease, on hemodialysis. 6. Seizure disorder. 7. Coronary artery disease. 8. Hypertension. 9. Diabetes. Plan: Plan of Care Continue IV Vanc and Zoysn renal dosing Vascular is recommending BKA which patient is adamantly refusing. Antibiotics alone will likely not be optimal Patient wants to trial with IV antibiotics Discussed with JUAN ALBERTO POSADAS MD Jun 01, 2021 09:40
--- NOTE | 2021-06-01 10:45 | PDOC ---
Infectious Disease Note Subjective: Subjective Patient is feeling better Remains on room air Ready for discharge today per primary team Discussed with RN Vital Signs: Vital Signs Vital Signs Date Time Temp Pulse Resp B/P (MAP) Pulse Ox O2 Delivery O2 Flow Rate FiO2 06/01/21 09:08 70 133/77 06/01/21 08:00 Room Air 06/01/21 07:00 96.3 18 100 96.3 Physical Exam: PHYSICAL EXAM GENERAL: Alert awake oriented x3 male in no acute distress on room air HEENT: Both pupils are round and reacting. No conjunctival lesion. No lesion in the mouth. NECK: Supple. No JVP, no lymphadenopathy. LUNGS: Clear. HEART: S1, S2, regular. ABDOMEN: Soft, nontender. No organomegaly. EXTREMITIES: There are multiple superficial wounds on to the extremities. Muscle wasting present. Left foot reveals dehiscence of the amputation site. Surrounding Black eschar around the wound noted. Unhealthy necrotic base. Large area involved with gangrenous eschar on the dorsum of the foot. NEUROLOGIC: The patient is awake, try to say something, mumbles few words, occasional appropriate nodding. Medications: Inpatient Meds: Medications reviewed. Labs: Lab Laboratory Tests Test 05/31/21 17:12 05/31/21 20:59 06/01/21 07:59 Glucose (Fingerstick) 122 mg/dL (70-99) 123 mg/dL (70-99) 143 mg/dL (70-99) Micro Micro RUN DATE: 05/29/21 [facility] LAB *LIVE* PAGE 1 RUN TIME: 112 Specimen Inquiry PATIENT: FER CHAUDHARY ACCT: [id number] LOC: [address] [place] [address] U: [id number] AGE/SX: 55/M ROOM: 582 RE05/26/[address]: KAHLIL VALLE MD : 1965 BED: 1 DIS: STATUS: ADM IN TLOC: SPEC #: [id number] CHERIE: 05/26/21 STATUS: RES REQ #: [id number] RECD: 05/27/[address] [facility] [address]: KAHLIL VALLE MD SOURCE: FOOT ENTR: 05/27/[address]: MACHELLE COPE MD SPDESC: LEFT NUBIA PATTON MD, ZHIPENG DPM ORDERED: CHIDI/SANDRA/MARICEL COMMENTS: LEFT FOOT SWAB Procedure Result GRAM STAIN Final Final GRAM NEGATIVE RODS:MANY SQUAMOUS EPI CELL:NONE SEEN PMN (WBCs):RARE Unless otherwise specified, Testing Performed by: [address] [address] For Inquires, the Physician may contact the Microbiology department at [phone] ANAEROBIC-AEROBIC CULTURE Preliminary Preliminary MANY [ENTEROBACTER CLOACAE COMPLEX] on 05/28/21 at 1127 FEW [IRA ALBICANS] on 05/28/21 at 1127 ENTEROBACTER CLOACAE COMPLEX IRA ALBICANS ANTIMICROBIAL SUSCEPTIBILITY Preliminary Comment NEG JANI 56 ENTEROBACTER CLOACAE COMPLEX ANTIBIOTIC RESULT INTERPRETATION AMPICILLIN/SULBACTAM >16/8 R AMIKACIN <=16 S AMPICILLIN >16 R AMOXICILLIN/K CLAVULANATE >16/8 R AZTREONAM >16 R CEFTRIAXONE >32 R CEFTAZIDIME <=1 S CEFOTAXIME <=2 S CEFOXITIN <=8 R* CEFAZOLIN >16 R CIPROFLOXACIN <=0.25 S CEFEPIME <=2 S CEFUROXIME >16 R ERTAPENEM <=0.5 S RUN DATE: 05/29/21 [facility] *LIVE* PAGE 2 RUN TIME: 1127 Specimen Inquiry SPEC: [id number] PATIENT: FER CHAUDHARY [id number] (Continued) Procedure Result CONTINUED ON NEXT PAGE RUN DATE: 05/29/21 [facility] *LIVE* PAGE 3 RUN TIME: 1127 Specimen Inquiry SPEC: [id number] PATIENT: FER CHAUDHARY [id number] (Continued) Procedure Result ANTIMICROBIAL SUSCEPTIBILITY Preliminary (continued) GENTAMICIN <=2 S LEVOFLOXACIN <=0.5 S MEROPENEM <=1 S PIPERACILLIN/TAZOBACTAM >64 R TRIMETHOPRIM/SULFAMETHOXAZOLE <=0.5/9.5 S TETRACYCLINE <=4 S TOBRAMYCIN <=2 S Unless otherwise specified, Testing Performed by: [address] [address] For Inquires, the Physician may contact the Microbiology department at [phone] Objective: Assessment: 1. Encephalopathy. 2. COVID-19 positive. 3. Fever. Resolved 4. 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 Patient is refusing left BKA ESR 54, CRP 149. 5. End-stage renal disease, on hemodialysis. 6. Seizure disorder. 7. Coronary artery disease. 8. Hypertension. 9. Diabetes. Plan: Plan of Care Continue IV Vanc and Zoysn renal dosing Vascular is recommending BKA which patient is adamantly refusing. Antibiotics alone will likely not be optimal I discussed with patient about need for surgery and then treat with IV antibiotics. Patient wants to trial with IV antibiotics only He understands pros and cons including , worsening of wound despite adequate IV antibiotics due to underlying necrotic tissue and bone /sepsis/ progression of left lower extremity infection Patient verbalizes understanding Monitor labs and cults Vascular input noted Continue local care per wound team Prescription in chart Case management to assist with discharge antibiotics Patient is not eligible for LTAC per discussion with Dr. Valle Patient will need PICC line for IV antibiotics. Get clearance from nephrology team If PICC line is not an option may need power PICC Local skin care Follow-up ID clinic in 2 to 3 weeks Discussed with JUAN ALBERTO POSADAS MD Jun 01, 2021 10:45
--- NOTE | 2021-06-01 10:50 | NUR ---
Wound Care Wound Type/Assessment: Pt seen at the request of Dr. Valle re: L TMA dehisced surgical incision. Left TMA is dehisced centrally, with exposed bone, muscle and tendon, undermining present along proximal edges, wound base with shiny yellow slough and some pink/red tissue present. Sutures visualized at medial and lateral incision edges, with black eschar covering at 3 and 9:00 at edges, periwound intact, no redness or fluctuance noted, minimal serosanguinous drainage present. Treatment Recommendations/Plan: At the current time, pt is adamantly refusing a BKA and there are no plans to return to the OR for debridement, so we will attempt to clean up the slough and eschar with Vac Veraflo while pt is hospitalized, with the chance that it could clean up enough for a traditional wound vac for home/SNU, as Veraflo is unavailable at those locations. 1 piece of tariq waffle foam tucked into undermined, eschar and slough areas, then 2 pieces of solid tariq Veraflo foam placed over. Vac showing strong seal at -125 mmHg, with Veraflo settings of 10 mL of normal saline infusing every 3 hours for 3 minute dwell time, track head placed on proximal surface, but leaving eschar covered dorsal foot wound separate from drape. Pt tolerated well, nodded yes when POC discussed. Education provided: to pt re: vac usage and POC Offloading surface/device: n/a Recommended Referrals/Tests: bedside or OR debridement of slough and eschar, attempt to heal by third intention using a wound vac. Discharge Recommendations for dressings: NPWT if wound is clean enough
[2021-06-01 11:00] VITALS: BP 140/71
--- NOTE | 2021-06-01 11:05 | PDOC ---
TEJAL GUO LEATHER STRETCHER 06/01/21 1105: CARDIO Progress Notes Date and Time Date of Service 06/01/2021 Time of Evaluation 1100 Subjective Subjective: No Chest Pain, No shortness of breath, No Palpitations Vitals Vitals Vital Signs Date Time Temp Pulse Resp B/P (MAP) Pulse Ox O2 Delivery O2 Flow Rate FiO2 06/01/21 09:08 70 133/77 06/01/21 08:00 Room Air 06/01/21 07:00 96.3 18 100 96.3 Weight Weight [ ] Input and Output Intake and Output Intake and Output 06/01/21 07:00 Intake Total 120 ml Output Total 0 ml Balance 120 ml Intake Oral 120 ml Output Stool Total 0 ml Laboratory Labs Laboratory Tests Test 05/31/21 17:12 05/31/21 20:59 06/01/21 07:59 Glucose (Fingerstick) 122 mg/dL (70-99) 123 mg/dL (70-99) 143 mg/dL (70-99) Microbiology Micro Microbiology 05/28/21 Gram Stain - Final, Resulted 05/28/21 Aerobic and Anaerobic Culture - Preliminary, Resulted 05/28/21 Antimicrobic Susceptibility - Preliminary, Resulted 05/26/21 Blood Culture - Final, Complete NO GROWTH AFTER 5 DAYS Review of Systems Constitutional: yes: other (CONFUSED) Physical Exam HEENT: Neck Supple W Full Motion Chest: Symmetric LUNGS: Other (diminished bases ) Heart: RRR (SR) Abdomen: Soft N/T Extremities: Other (left TMA- drsg intact ) Neurology: alert, follow commands Assessment Assessment 1. Fevers, COVID + 2. Acute encephalopathy 3. ESRD on HD 4. PAFIB: presently SR 5. CAD: s/p CABG. unclear if any recent w/u, clinically stable 6. HTN; controlled overall 7. DM2 8. S/P L TMA with dehiscence. L BKA recommended, but patient refused 9. Anemia: s/p transfusion. hgb stable. 10. Sepsis 11. Hx of mild CM: past EF at 45%. Limited echo with EF 30-35% 12. Mild to moderate , moderate to severe TR. Estimated PAP 60 mmHg. Recommendations Continued metoprolol for rate control Poor candidate for anticoagulation with anemia and prior hx of SDH. Continue baby ASA for stroke prevention Secondary prevention measures Fluid offloading via HD Continue COVID treatment Supportive care. Outpt ischemic workup if none recent Continue to refuse LBKA, further goals of care discussion with pt and sister. SS consult, psych consult? Justicifation of Admission Dx: Justifications for Admission: Justification of Admission Dx: N/A CARRIE MCCLAIN MD 06/02/21 1838: CARDIO Progress Notes Plan Plan Late entry for 06/01/2021 Patient seen and examined. Agree with above nurse practitioner note. TEJAL GUO LEATHER STRETCHER Jun 01, 2021 11:05 CARRIE MCCLAIN MD Jun 02, 2021 18:38
--- NOTE | 2021-06-01 12:40 | PDOC ---
PROGRESS NOTES Date of Service DATE: 06/01/21 TIME: 12:33 Subjective Subjective Patient is more awake and communicative. Patient denies pain to the left foot. Per chart review, patient has been seen by vascular whom recommended BKA which patient refused. Wound VAC was placed to the left TMA stump. Objective Objective Vital Signs Date Time Temp Pulse Resp B/P (MAP) Pulse Ox O2 Delivery O2 Flow Rate FiO2 06/01/21 11:00 98.3 79 18 140/71 (94) 100 Room Air 98.3 05/28/21 11:00 2.0 Intake and Output 06/01/21 07:00 Intake Total 120 ml Output Total 0 ml Balance 120 ml Intake Oral 120 ml Output Stool Total 0 ml Physical Exam Physical Exam General: Somnolent not conversational but arousable Dermatology: -S/p left TMA. There is full dehiscence to the entire surgical stump. probe to bone with necrotic skin flaps. -S/p wound VAC placement to the left lower extremity. Overnight drainage was minimal. Pressure is set at 125 mmHg Vascular: -Foot is warm to touch -DP and PT are faintly palpable Neurology: -Light touch sensation diminished to the proximal ankle Musculoskeletal: -Not significant for equina varus deformity -S/p proximal TMA -Calf is soft and nontender -Passive ankle range of motion was smooth without crepitus or pain -Strength was deferred Assessment Assessment Problems Medical Problems: (1) Altered mental status Status: Acute (2) COVID-19 Status: Acute (3) Draining postoperative wound Status: Acute (4) ESRD (end stage renal disease) on dialysis Status: Acute (5) Severe anemia Status: Acute Plan Plan of Care 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 In 2020 -We discussed wound management options including TMA revision with high risk of dehiscence, nonfunctional foot versus BKA. Patient is adamant against any surgical intervention at this point. He was explained to the risks or consequences of possible limb loss, life-threatening bacteremia/sepsis. Currently, he wants to continue with IV suppressive antibiotic therapy, wound care with wound VAC. -Wound VAC is currently managed by wound care team -Bedside culture grew Enterobacter, Mary. ID recommended vancomycin and Zosyn renally dosed -Activity: Nonweightbearing to left lower extremity, PT eval and treat -Medical optimization per internal medicine Dispo: Currently, patient refused all the surgical interventions. I will continue to follow peripherally and will be available for any surgical assistance. Comment Review of Relevant I have reviewed the following items yifan (where applicable) has been applied. Labs Laboratory Tests Test 05/30/21 16:18 05/30/21 19:56 05/31/21 07:35 05/31/21 08:48 Glucose (Fingerstick) 207 mg/dL (70-99) 186 mg/dL (70-99) 198 mg/dL (70-99) Sodium Level 144 mmol/L (136-145) Potassium Level 5.0 mmol/L (3.5-5.1) Chloride Level 103 mmol/L (98-107) Carbon Dioxide Level 19 mmol/L (21-32) Anion Gap 22 (6-14) Blood Urea Nitrogen 33 mg/dL (8-26) Creatinine 6.4 mg/dL (0.7-1.3) Estimated GFR (Cockcroft-Gault) 9.1 BUN/Creatinine Ratio 5 (6-20) Glucose Level 209 mg/dL (70-99) Calcium Level 8.1 mg/dL (8.5-10.1) Total Bilirubin 1.1 mg/dL (0.2-1.0) Aspartate Amino Transf (AST/SGOT) 97 U/L (15-37) Alanine Aminotransferase (ALT/SGPT) 59 U/L (16-63) Alkaline Phosphatase 84 U/L (46-116) Total Protein 7.0 g/dL (6.4-8.2) Albumin 2.2 g/dL (3.4-5.0) Albumin/Globulin Ratio 0.5 (1.0-1.7) Test 05/31/21 17:12 05/31/21 20:59 06/01/21 07:59 06/01/21 11:28 Glucose (Fingerstick) 122 mg/dL (70-99) 123 mg/dL (70-99) 143 mg/dL (70-99) 187 mg/dL (70-99) Laboratory Tests Test 05/31/21 17:12 05/31/21 20:59 06/01/21 07:59 06/01/21 11:28 Glucose (Fingerstick) 122 mg/dL (70-99) 123 mg/dL (70-99) 143 mg/dL (70-99) 187 mg/dL (70-99) Microbiology 05/28/21 Gram Stain - Final, Resulted 05/28/21 Aerobic and Anaerobic Culture - Preliminary, Resulted 05/28/21 Antimicrobic Susceptibility - Preliminary, Resulted 05/26/21 Blood Culture - Final, Complete NO GROWTH AFTER 5 DAYS Medications Current Medications Sodium Chloride 1,000 ml @ 1,000 mls/hr 1X ONCE IV ; Start 05/26/21 at 01:30; Stop 05/26/21 at 02:29; Status DC Piperacillin Sod/ Tazobactam Sod (Zosyn Per Pharmacy) 1 each PRN DAILY PRN MC SEE COMMENTS; Start 05/26/21 at 01:30 Piperacillin Sod/ Tazobactam Sod 3.375 gm/Sodium Chloride 50 ml @ 100 mls/hr 1X ONCE IV Last administered on 05/26/21at 03:25; Start 05/26/21 at 02:15; Stop 05/26/21 at 02:44; Status DC Vancomycin HCl (Vanco Per Pharmacy) 1 each PRN DAILY PRN MC SEE COMMENTS Last administered on 05/27/21at 09:27; Start 05/26/21 at 03:15 Sodium Chloride 500 ml @ 500 mls/hr 1X ONCE IV Last administered on 05/26/21at 03:25; Start 05/26/21 at 03:30; Stop 05/26/21 at 04:29; Status DC Ondansetron HCl (Zofran) 4 mg PRN Q8HRS PRN IVP NAUSEA/VOMITING; Start 05/26/21 at 03:30; Stop 05/27/21 at 03:29; Status DC Acetaminophen (Tylenol) 650 mg PRN Q4HRS PRN PO FEVER > 100.3'F; Start 05/26/21 at 03:30; Stop 05/27/21 at 03:29; Status DC Insulin Human Lispro (HumaLOG) 0-5 UNITS TIDWMEALS SQ Last administered on 05/26/21at 09:09; Start 05/26/21 at 08:00; Stop 05/26/21 at 12:46; Status DC Dextrose (Dextrose 50%-Water Syringe) 12.5 gm PRN Q15MIN PRN IV SEE COMMENTS; Start 05/26/21 at 03:30; Status Cancel Vancomycin HCl 1.75 gm/Sodium Chloride 500 ml @ 250 mls/hr 1X ONCE IV Last administered on 05/26/21at 05:47; Start 05/26/21 at 06:00; Stop 05/26/21 at 07:59; Status DC Piperacillin Sod/ Tazobactam Sod 2.25 gm/Sodium Chloride 50 ml @ 100 mls/hr Q8HRS IV Last administered on 06/01/21at 05:37; Start 05/26/21 at 08:00 Sodium Hypochlorite (Dakin'S 1/4 Strength) 1 lópez BID TP Last administered on 06/01/21at 09:00; Start 05/26/21 at 11:00 Aspirin (Ecotrin) 81 mg DAILY PO Last administered on 06/01/21at 09:07; Start 05/26/21 at 14:00 Atorvastatin Calcium (Lipitor) 10 mg DAILY PO Last administered on 06/01/21at 09:07; Start 05/26/21 at 14:00 Cyanocobalamin (Vitamin B-12) 1,000 mcg DAILY PO Last administered on 06/01/21at 09:07; Start 05/27/21 at 09:00 EZETIMIBE (Zetia) 10 mg DAILY PO Last administered on 06/01/21at 09:07; Start 05/26/21 at 14:00 Topiramate (Topamax) 100 mg BID PO Last administered on 06/01/21at 09:08; Start 05/26/21 at 14:00 Trazodone HCl (Desyrel) 50 mg QHS PO Last administered on 05/30/21at 21:25; Start 05/26/21 at 21:00 Vitamin D (Vitamin D3) 1,000 unit DAILY PO Last administered on 06/01/21at 09:07; Start 05/26/21 at 14:00 Duloxetine HCl (Cymbalta) 60 mg HS PO Last administered on 05/30/21at 21:25; Start 05/26/21 at 21:00 Non-Formulary Medication (Icosapent Ethyl (Vascepa)) 2 cap BID PO ; Start 05/26/21 at 21:00; Status UNV Mirtazapine (Remeron) 45 mg QHS PO Last administered on 05/30/21at 21:26; Start 05/26/21 at 21:00 Pantoprazole Sodium (Protonix) 40 mg DAILYAC PO Last administered on 06/01/21at 09:07; Start 05/26/21 at 14:00 Pregabalin (Lyrica) 225 mg BID PO Last administered on 06/01/21at 09:08; Start 05/26/21 at 14:00 Promethazine HCl (Phenergan) 25 mg PRN Q6HRS PRN PO NAUSEA/VOMITING; Start 05/26/21 at 13:00 Levetiracetam 100 ml @ 400 mls/hr Q12HR IV ; Start 05/26/21 at 21:00; Status UNV Insulin Human Lispro (HumaLOG) 0-5 UNITS TIDWMEALS SQ Last administered on 06/01/21at 11:39; Start 05/26/21 at 17:00 Dextrose (Dextrose 50%-Water Syringe) 12.5 gm PRN Q15MIN PRN IV SEE COMMENTS; Start 05/26/21 at 12:45 Levetiracetam (Keppra) 500 mg BID PO ; Start 05/26/21 at 14:00; Status Cancel Lactobacillus Rhamnosus (Culturelle) 1 cap BID PO Last administered on 06/01/21at 09:08; Start 05/26/21 at 21:00 Levetiracetam 100 ml @ 400 mls/hr Q12HR IV Last administered on 05/29/21at 21:38; Start 05/26/21 at 14:00; Stop 05/29/21 at 23:00; Status DC Epoetin Catalino-epbx (RETACRIT for ESRD PTS) 10,000 unit MoWeFr@2100 SQ Last administered on 05/31/21at 21:18; Start 05/26/21 at 21:00 Vancomycin HCl (Vancomycin Random Level) 1 each 1X ONCE MC Last administered on 05/27/21at 05:00; Start 05/27/21 at 05:00; Stop 05/27/21 at 05:01; Status DC Info (PHARMACY MONITORING -- do not chart) 1 each PRN DAILY PRN MC SEE COMMENTS; Start 05/26/21 at 18:30; Status Cancel Vancomycin HCl (Vancomycin Random Level) 1 each 1X ONCE MC Last administered on 05/29/21at 06:00; Start 05/29/21 at 06:00; Stop 05/29/21 at 06:01; Status DC Sodium Chloride 1,000 ml @ 1,000 mls/hr Q1H PRN IV hypotension; Start 05/28/21 at 11:45; Stop 05/28/21 at 17:44; Status DC Sodium Chloride (Normal Saline Flush) 10 ml 1X PRN PRN IV AP catheter pack; Start 05/28/21 at 11:45; Stop 05/29/21 at 11:44; Status DC Sodium Chloride (Normal Saline Flush) 10 ml 1X PRN PRN IV LUMBER TALLIER catheter pack; Start 05/28/21 at 11:45; Stop 05/29/21 at 11:44; Status DC Sodium Chloride 1,000 ml @ 400 mls/hr Q2H30M PRN IV PATENCY; Start 05/28/21 at 11:45; Stop 05/28/21 at 23:44; Status DC Info (PHARMACY MONITORING -- do not chart) 1 each PRN DAILY PRN MC SEE COMMENTS; Start 05/28/21 at 11:45; Status UNV Info (PHARMACY MONITORING -- do not chart) 1 each PRN DAILY PRN MC SEE COMMENTS; Start 05/28/21 at 11:45; Status UNV Metoprolol Succinate (Toprol Xl) 50 mg DAILY PO Last administered on 06/01/21at 09:08; Start 05/28/21 at 14:00 Vancomycin HCl (Vancomycin Random Level) 1 each 1X ONCE MC ; Start 06/02/21 at 06:00; Stop 06/02/21 at 06:01 Levetiracetam (Keppra) 500 mg BID PO Last administered on 06/01/21at 09:07; Start 05/30/21 at 09:00 Perflutren Protein Type A Microsphe (Optison) 0.66 mg 1X ONCE IV ; Start 05/31/21 at 08:15; Stop 05/31/21 at 08:16; Status DC Sodium Chloride 1,000 ml @ 1,000 mls/hr Q1H PRN IV hypotension; Start 05/31/21 at 10:15; Stop 05/31/21 at 16:14; Status DC Albumin Human 200 ml @ 200 mls/hr 1X PRN PRN IV Hypotension; Start 05/31/21 at 10:15; Stop 05/31/21 at 16:14; Status DC Sodium Chloride 1,000 ml @ 400 mls/hr Q2H30M PRN IV PATENCY; Start 05/31/21 at 10:15; Stop 05/31/21 at 22:14; Status DC Info (PHARMACY MONITORING -- do not chart) 1 each PRN DAILY PRN MC SEE COMMENTS; Start 05/31/21 at 10:15 Active Scripts Active Metoprolol Succinate 50 Mg Tab.er.24h 50 Mg PO DAILY 30 Days Levetiracetam 500 Mg Tablet 500 Mg PO BID 30 Days Reported Trazodone Hcl 50 Mg Tablet 1 Tab PO QHS Xultophy 100 Unit-3.6 mg/ml (Insulin Degludec/Liraglutide) 3 Ml Insuln.pen 24 Ml SQ HS Vitamin D (Cholecalciferol (Vitamin D3)) 1,000 Unit Capsule 1 Cap PO DAILY Atorvastatin Calcium 10 Mg Tablet 10 Mg PO DAILY Sildenafil (Sildenafil Citrate) 20 Mg Tablet 20 Mg PO TID Zetia (Ezetimibe) 10 Mg Tablet 10 Mg PO DAILY Omeprazole 40 Mg Capsule. 40 Mg PO DAILY Topiramate 100 Mg Tablet 100 Mg PO BID Promethazine Hcl 25 Mg Tablet 25 Mg PO Q6H PRN B-12 (Cyanocobalamin (Vitamin B-12)) 1,000 Mcg Tablet 1,000 Mcg PO DAILY Vascepa (Icosapent Ethyl) 1 Gm Capsule 2 Cap PO BID Aspirin Ec (Aspirin) 81 Mg Tablet. 81 Mg PO DAILY Duloxetine Hcl 60 Mg Capsule.dr 60 Mg PO HS Lyrica (Pregabalin) 225 Mg Capsule 225 Mg PO BID Losartan-Hctz 100-25 Mg Tab (Losartan/Hydrochlorothiazide) 1 Each Tablet 25 Mg PO DAILY Mirtazapine 45 Mg Tablet 45 Mg PO HS Amlodipine Besylate 5 Mg Tablet 5 Mg PO DAILY Vitals/I & O Vital Sign - Last 24 Hours 05/31/21 05/31/21 05/31/21 05/31/21 15:00 19:00 20:00 23:00 Temp 87.7 97.4 97.5 87.7 97.4 97.5 Pulse 80 75 76 Resp 16 16 16 B/P (MAP) 145/87 (106) 122/71 (88) 133/77 (95) Pulse Ox 96 99 97 O2 Delivery Room Air Room Air Room Air Room Air 06/01/21 06/01/21 06/01/21 06/01/21 03:00 07:00 08:00 09:08 Temp 98.4 96.3 98.4 96.3 Pulse 70 70 70 Resp 18 18 B/P (MAP) 149/79 (102) 133/77 (95) 133/77 Pulse Ox 95 100 O2 Delivery Room Air Room Air Room Air 06/01/21 11:00 Temp 98.3 98.3 Pulse 79 Resp 18 B/P (MAP) 140/71 (94) Pulse Ox 100 O2 Delivery Room Air Intake and Output 05/31/21 05/31/21 06/01/21 15:00 23:00 07:00 Intake Total 120 ml Output Total 0 ml Balance 120 ml 0 ml Justifications for Admission Other Justification JULIEN COVARRUBIAS DPM Jun 01, 2021 12:39
--- NOTE | 2021-06-01 13:07 | PN ---
DATE: 06/01/2021 SUBJECTIVE: The patient is resting, slightly propped up in bed, no apparent distress. He is awake, alert. On questioning him, he denied any complaint, in particular denied any pain, chills, rigors or fever. PHYSICAL EXAMINATION: GENERAL: When I examined him, he looked pale, not jaundiced or cyanosed, no lymphadenopathy, no thyromegaly, no jugular venous distention. No lower limb edema. VITAL SIGNS: His heart rate was 70, blood pressure was 133/77, temperature was 96.3, respiratory rate was 18 and oxygen saturation was 100% on room air. HEAD, EYES, EARS, NOSE, AND THROAT: Normocephalic, atraumatic. NECK: Supple. HEART: Showed normal first and second heart sounds. No gallop, rub or murmur. CHEST: Clear to auscultation, no crepitation or rhonchi. ABDOMEN: Distended, soft, nontender. NEUROLOGIC: He was awake, alert, responding appropriately. Cranial nerves intact. He moves upper extremities without difficulty. He has left forefoot amputation. His intake and output are incompletely recorded. LABORATORY DATA: Lab work showed that his most recent hemoglobin was 9.1, hematocrit 29.2. His chemistry is variable. His blood sugar is within acceptable range. ASSESSMENT: 1. The patient is status post left transmetatarsal amputation with dehiscence of the wound, large eschar on the dorsum of the left foot. He was seen by the vascular surgeon as recommended by the relations specialist and he recommended right below-knee amputation; however, the patient declined this option. 2. The patient obviously will require extended periods of antibiotic treatment as well as wound VAC. 3. The patient has asymptomatic COVID-19 infection. 4. The patient has end-stage renal disease, on hemodialysis Monday, Monday, Monday. 5. Type 1 diabetes mellitus with triopathy 6. Atrial fibrillation, rate controlled, not anticoagulated. 7. Coronary artery disease status post coronary artery bypass graft surgery. 8. Ischemic cardiomyopathy. 9. Hypertension. 10. Cerebrovascular accident. 11. Peripheral neuropathy. 12. 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 13. Seizure disorder. PLAN: Obviously to continue with wound care. Continue with IV antibiotic. Apparently, the patient did not qualify to go to [facility] for now. To continue with IV antibiotic as recommended by Infectious Disease specialist. Continue with hemodialysis as per Nephrology team. We will discuss with employment case managerloan operations manager issue as he does not qualify to go back to [facility] as he is positive for COVID-19 and did not qualify to go to [facility]. DAE/TARA DR: Tyler TID: [id number]
--- NOTE | 2021-06-01 13:17 | NUR ---
SS following up with discharge planning. SS reviewed pt chart and discussed with pt RN. Pt is currently on room air. Pt on IV Zosyn. COVID19 positive. Pt needing BKA. SS was notified that pt is refusing surgery. SS met with pt and had pt's mother and sister on speaker phone. After speaking with SS and family pt stated that he was agreeable to BKA. Pt's RN to get consents. Wound vac placed today. ID following. PT/OT recommended group home unit. SS will continue to follow for discharge planning.
[2021-06-01 15:05] VITALS: BP 145/87
--- NOTE | 2021-06-01 16:22 | PDOC ---
DATE OF SERVICE DATE: 06/01/21 TIME: 16:19 SUBJECTIVE ROS States feeling better OBJECTIVE Vital Signs Vital Signs Date Time Temp Pulse Resp B/P (MAP) Pulse Ox O2 Delivery O2 Flow Rate FiO2 06/01/21 15:05 97.5 79 18 145/87 (106) 100 Room Air 97.5 I & 0 Intake and Output 06/01/21 07:00 Intake Total 120 ml Output Total 0 ml Balance 120 ml Intake Oral 120 ml Output Stool Total 0 ml PHYSICAL EXAM Physical Exam GENERAL:not in distress. HEENT: Both pupils are round and reacting. OM moist NECK: Supple. No JVP, no lymphadenopathy. LUNGS: Clear. HEART: S1, S2, regular. ABDOMEN: Soft, nontender. No organomegaly. EXTREMITIES: There are multiple superficial wounds on to the extremities. Muscle wasting present. full-length TMA incision has dehisced and some purulent drainage coming out NEUROLOGIC: The patient is awake,mumbles few words, occasional appropriate nodding. DIAGNOSIS/ASSESSMENT Assessment & Plan ESRD - on HD MWF, Currently no indication for dialysis today Anemia- Continue Retacrit COVID-19 positive.On RA Left foot infection. Currently on Abx. Vascular is recommending BKA Coronary artery disease. Hypertension. Diabetes. COMMENT/RELEVANT DATA Meds Current Medications Medications (Trade) Dose Ordered Sig/Babak Start Time Stop Time Status Last Admin Dose Admin Acetaminophen (Tylenol) 650 mg PRN Q4HRS PRN 05/26/21 03:30 05/27/21 03:29 DC Albumin Human 200 ml @ 200 mls/hr 1X PRN PRN 05/31/21 10:15 05/31/21 16:14 DC Aspirin (Ecotrin) 81 mg DAILY 05/26/21 14:00 06/01/21 09:07 81 MG Atorvastatin Calcium (Lipitor) 10 mg DAILY 05/26/21 14:00 06/01/21 09:07 10 MG Cyanocobalamin (Vitamin B-12) 1,000 mcg DAILY 05/27/21 09:00 06/01/21 09:07 1,000 MCG Dextrose (Dextrose 50%-Water Syringe) 12.5 gm PRN Q15MIN PRN 05/26/21 12:45 Duloxetine HCl (Cymbalta) 60 mg HS 05/26/21 21:00 05/30/21 21:25 60 MG Epoetin Catalino-epbx (RETACRIT for ESRD PTS) 10,000 unit MoWeFr@2100 05/26/21 21:00 05/31/21 21:18 10,000 UNIT EZETIMIBE (Zetia) 10 mg DAILY 05/26/21 14:00 06/01/21 09:07 10 MG Info (PHARMACY MONITORING -- do not chart) 1 each PRN DAILY PRN 05/31/21 10:15 Insulin Human Lispro (HumaLOG) 0-5 UNITS TIDWMEALS 05/26/21 17:00 06/01/21 11:39 2 UNITS Lactobacillus Rhamnosus (Culturelle) 1 cap BID 05/26/21 21:00 06/01/21 09:08 1 CAP Levetiracetam (Keppra) 500 mg BID 05/30/21 09:00 06/01/21 09:07 500 MG Metoprolol Succinate (Toprol Xl) 50 mg DAILY 05/28/21 14:00 06/01/21 09:08 50 MG Mirtazapine (Remeron) 45 mg QHS 05/26/21 21:00 05/30/21 21:26 45 MG Non-Formulary Medication (Icosapent Ethyl (Vascepa)) 2 cap BID 05/26/21 21:00 UNV Ondansetron HCl (Zofran) 4 mg PRN Q8HRS PRN 05/26/21 03:30 05/27/21 03:29 DC Pantoprazole Sodium (Protonix) 40 mg DAILYAC 05/26/21 14:00 06/01/21 09:07 40 MG Perflutren Protein Type A Microsphe (Optison) 0.66 mg 1X ONCE 05/31/21 08:15 05/31/21 08:16 DC Piperacillin Sod/ Tazobactam Sod (Zosyn Per Pharmacy) 1 each PRN DAILY PRN 05/26/21 01:30 Piperacillin Sod/ Tazobactam Sod 2.25 gm/Sodium Chloride 50 ml @ 100 mls/hr Q8HRS 05/26/21 08:00 06/01/21 13:38 100 MLS/HR Piperacillin Sod/ Tazobactam Sod 3.375 gm/Sodium Chloride 50 ml @ 100 mls/hr 1X ONCE 05/26/21 02:15 05/26/21 02:44 DC 05/26/21 03:25 100 MLS/HR Pregabalin (Lyrica) 225 mg BID 05/26/21 14:00 06/01/21 09:08 225 MG Promethazine HCl (Phenergan) 25 mg PRN Q6HRS PRN 05/26/21 13:00 Sodium Hypochlorite (Dakin'S 1/4 Strength) 1 lópez BID 05/26/21 11:00 06/01/21 09:00 1 LÓPEZ Sodium Chloride 1,000 ml @ 400 mls/hr Q2H30M PRN 05/31/21 10:15 05/31/21 22:14 DC Sodium Chloride (Normal Saline Flush) 10 ml 1X PRN PRN 05/28/21 11:45 05/29/21 11:44 DC Topiramate (Topamax) 100 mg BID 05/26/21 14:00 06/01/21 09:08 100 MG Trazodone HCl (Desyrel) 50 mg QHS 05/26/21 21:00 05/30/21 21:25 50 MG Vancomycin HCl (Vanco Per Pharmacy) 1 each PRN DAILY PRN 05/26/21 03:15 05/27/21 09:27 1 EACH Vancomycin HCl (Vancomycin Random Level) 1 each 1X ONCE 06/02/21 06:00 06/02/21 06:01 Vancomycin HCl 1.75 gm/Sodium Chloride 500 ml @ 250 mls/hr 1X ONCE 05/26/21 06:00 05/26/21 07:59 DC 05/26/21 05:47 250 MLS/HR Vitamin D (Vitamin D3) 1,000 unit DAILY 05/26/21 14:00 06/01/21 09:07 1,000 UNIT Lab Laboratory Tests Test 05/31/21 17:12 05/31/21 20:59 06/01/21 07:59 06/01/21 11:28 Glucose (Fingerstick) 122 mg/dL (70-99) 123 mg/dL (70-99) 143 mg/dL (70-99) 187 mg/dL (70-99) Results All relevant outside records, renal labs, imaging studies, telemetry/EKG's were reviewed. Justicifation of Admission Dx: Justifications for Admission: Justification of Admission Dx: N/A JUSTIN LARKIN MD Jun 01, 2021 16:22
[2021-06-01 19:00] VITALS: BP 100/67
[2021-06-01] MEDS: MIRTAZAPINE 15 MG TABLET PO SCH (20:53)
[2021-06-01] MEDS: DULoxetine HCL 30 MG CAPSULE.DR PO SCH (20:53)
[2021-06-01] MEDS: traZODone 50 MG TABLET. PO SCH (20:54)
[2021-06-01 23:00] VITALS: BP 107/59
[2021-06-02 03:00] VITALS: BP 118/84
[2021-06-02] MEDS: PIPERACILLIN/TAZOBACTAM 2.25 GM in IV NORMAL SALINE 50ML 50 ML IV SCH (05:35)
[2021-06-02] MEDS ORDERED: VANCOMYCIN RANDOM LEVEL. MC ONE (06:00)
[2021-06-02 07:00] VITALS: BP 118/68
[2021-06-02 07:24] LABS: HEMATOCRIT 32.4 % (39.0-53.0); HEMOGLOBIN 9.9 g/dL (13.0-17.5); RED BLOOD COUNT 3.72 x10^6/uL (4.30-5.70); RED CELL DISTRIBUTION WIDTH 24.8 % (11.5-14.5); WHITE BLOOD COUNT 11.7 x10^3/uL (4.0-11.0)
[2021-06-02 07:47] LABS: ALBUMIN 2.2 g/dL (3.4-5.0); ALBUMIN/GLOBULIN RATIO 0.5 (1.0-1.7); CREATININE 6.6 mg/dL (0.7-1.3); GFR 8.8; POTASSIUM 3.8 mmol/L (3.5-5.1); TOTAL PROTEIN 6.9 g/dL (6.4-8.2)
--- NOTE | 2021-06-02 08:33 | PDOC ---
Infectious Disease Note Subjective: Subjective Patient is feeling better Remains on room air Ready for discharge today per primary team Discussed with RN Vital Signs: Vital Signs Vital Signs Date Time Temp Pulse Resp B/P (MAP) Pulse Ox O2 Delivery O2 Flow Rate FiO2 06/02/21 03:00 95.6 79 20 118/84 (95) 98 Room Air 95.6 Physical Exam: PHYSICAL EXAM GENERAL: Alert awake oriented x3 male in no acute distress on room air HEENT: Both pupils are round and reacting. No conjunctival lesion. No lesion in the mouth. NECK: Supple. No JVP, no lymphadenopathy. LUNGS: Clear. HEART: S1, S2, regular. ABDOMEN: Soft, nontender. No organomegaly. EXTREMITIES: There are multiple superficial wounds on to the extremities. Muscle wasting present. Left foot reveals dehiscence of the amputation site. Surrounding Black eschar around the wound noted. Unhealthy necrotic base. Large area involved with gangrenous eschar on the dorsum of the foot. NEUROLOGIC: The patient is awake, try to say something, mumbles few words, occasional appropriate nodding. Medications: Inpatient Meds: Medications reviewed. Labs: Lab Laboratory Tests Test 06/01/21 11:28 06/01/21 16:30 06/01/21 20:44 06/02/21 07:00 Glucose (Fingerstick) 187 mg/dL (70-99) 194 mg/dL (70-99) 191 mg/dL (70-99) White Blood Count 11.7 x10^3/uL (4.0-11.0) Red Blood Count 3.72 x10^6/uL (4.30-5.70) Hemoglobin 9.9 g/dL (13.0-17.5) Hematocrit 32.4 % (39.0-53.0) Mean Corpuscular Volume 87 fL (79-100) Mean Corpuscular Hemoglobin 27 pg (25-35) Mean Corpuscular Hemoglobin Concent 31 g/dL (31-37) Red Cell Distribution Width 24.8 % (11.5-14.5) Platelet Count 252 x10^3/uL (140-400) Sodium Level 139 mmol/L (136-145) Potassium Level 3.8 mmol/L (3.5-5.1) Chloride Level 100 mmol/L (98-107) Carbon Dioxide Level 23 mmol/L (21-32) Anion Gap 16 (6-14) Blood Urea Nitrogen 30 mg/dL (8-26) Creatinine 6.6 mg/dL (0.7-1.3) Estimated GFR (Cockcroft-Gault) 8.8 BUN/Creatinine Ratio 5 (6-20) Glucose Level 206 mg/dL (70-99) Calcium Level 8.0 mg/dL (8.5-10.1) Total Bilirubin 1.0 mg/dL (0.2-1.0) Aspartate Amino Transf (AST/SGOT) 85 U/L (15-37) Alanine Aminotransferase (ALT/SGPT) 80 U/L (16-63) Alkaline Phosphatase 87 U/L (46-116) Total Protein 6.9 g/dL (6.4-8.2) Albumin 2.2 g/dL (3.4-5.0) Albumin/Globulin Ratio 0.5 (1.0-1.7) Random Vancomycin Level 20.9 mcg/mL Test 06/02/21 07:49 Glucose (Fingerstick) 193 mg/dL (70-99) Micro Micro RUN DATE: 05/29/21 [facility] LAB *LIVE* PAGE 1 RUN TIME: 1127 Specimen Inquiry PATIENT: POLLOAldaFER Strange Chelsie ACCT: [id number] LOC: [address] [place] [address] U: [id number] AGE/SX: 55/M ROOM: 582 RE05/26/[address]: KAHLIL WADE MD : 1965 BED: 1 DIS: STATUS: ADM IN TLOC: SPEC #: [id number] CHERIE: 05/26/21 STATUS: RES REQ #: [id number] RECD: 05/27/[address] [facility] [address]: KAHLIL WADE MD SOURCE: FOOT ENTR: 05/27/21 [facility] DR: MACHELLE COPE MD SPDESC: NUBIA COLINDRES MD, ZHIPENG DPM ORDERED: ANAER/AERVALERIE/MARICEL COMMENTS: LEFT FOOT SWAB Procedure Result GRAM STAIN Final Final GRAM NEGATIVE RODS:MANY SQUAMOUS EPI CELL:NONE SEEN PMN (WBCs):RARE Unless otherwise specified, Testing Performed by: [address] [address] For Inquires, the Physician may contact the Microbiology department at [phone] ANAEROBIC-AEROBIC CULTURE Preliminary Preliminary MANY [ENTEROBACTER CLOACAE COMPLEX] on 05/28/21 at 1127 FEW [MARY ALBICANS] on 05/28/21 at 1127 ENTEROBACTER CLOACAE COMPLEX MARY ALBICANS ANTIMICROBIAL SUSCEPTIBILITY Preliminary Comment NEG JANI 56 ENTEROBACTER CLOACAE COMPLEX ANTIBIOTIC RESULT INTERPRETATION AMPICILLIN/SULBACTAM >16/8 R AMIKACIN <=16 S AMPICILLIN >16 R AMOXICILLIN/K CLAVULANATE >16/8 R AZTREONAM >16 R CEFTRIAXONE >32 R CEFTAZIDIME <=1 S CEFOTAXIME <=2 S CEFOXITIN <=8 R* CEFAZOLIN >16 R CIPROFLOXACIN <=0.25 S CEFEPIME <=2 S CEFUROXIME >16 R ERTAPENEM <=0.5 S RUN DATE: 05/29/21 [facility] LAB *LIVE* PAGE 2 RUN TIME: 1126 Specimen Inquiry SPEC: [id number] PATIENT: FER CHAUDHARY [id number] (Continued) -- Procedure Result CONTINUED ON NEXT PAGE RUN DATE: 05/29/21 [facility] LAB *LIVE* PAGE 3 RUN TIME: 1127 Specimen Inquiry SPEC: [id number] PATIENT: JETFER [id number] (Continued) Procedure Result ANTIMICROBIAL SUSCEPTIBILITY Preliminary (continued) GENTAMICIN <=2 S LEVOFLOXACIN <=0.5 S MEROPENEM <=1 S PIPERACILLIN/TAZOBACTAM >64 R TRIMETHOPRIM/SULFAMETHOXAZOLE <=0.5/9.5 S TETRACYCLINE <=4 S TOBRAMYCIN <=2 S Unless otherwise specified, Testing Performed by: [address] [address] For Inquires, the Physician may contact the Microbiology department at [phone] Objective: Assessment: 1. Encephalopathy. 2. COVID-19 positive. 3. Fever. Resolved 4. 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 Patient is refusing left BKA Cultures positive for Enterobacter and Mary ESR 54, CRP 149. 5. End-stage renal disease, on hemodialysis. 6. Seizure disorder. 7. Coronary artery disease. 8. Hypertension. 9. Diabetes. Plan: Plan of Care Continue IV Vanc change zosyn to merrem fluconazole Vascular is recommending BKA which patient is adamantly refusing. Antibiotics alone will likely not be optimal Patient wants to trial with IV antibiotics Discussed with JUAN ALBERTO POSADAS MD Jun 02, 2021 08:33
[2021-06-02] MEDS: SODIUM HYPOCHLORITE 0.125% 473 ML BOTTLE. TP SCH ×2 (09:00→21:00)
[2021-06-02] MEDS: CYANOCOBALAMIN (VITAMIN B-12) 1,000 MCG TABLET. PO SCH (10:17)
[2021-06-02] MEDS: EZETIMIBE 10 MG TABLET. PO SCH (10:17)
[2021-06-02] MEDS: ASPIRIN ENTERIC COATED 81 MG TABLET.DR. PO SCH (10:17)
[2021-06-02] MEDS: TOPIRAMATE 100 MG TABLET. PO SCH ×2 (10:17→21:19)
[2021-06-02] MEDS: ATORVASTATIN CALCIUM 10 MG TABLET. PO SCH (10:18)
[2021-06-02] MEDS: LACTOBACILLUS RHAMNOSUS GG 1 CAPSULE. PO SCH ×2 (10:18→21:19)
[2021-06-02] MEDS: levETIRAcetam 500 MG TABLET PO SCH ×2 (10:18→21:19)
[2021-06-02] MEDS: FLUCONAZOLE 100 MG TABLET. PO SCH (10:18)
[2021-06-02] MEDS: CHOLECALCIFEROL (VITAMIN D3) 1,000 UNIT TABLET PO SCH (10:18)
[2021-06-02] MEDS: METOPROLOL SUCC 24HR ER 50 MG TAB.ER.24H. PO SCH (10:18)
[2021-06-02] MEDS: PREGABALIN 75 MG CAPSULE PO SCH ×2 (10:18→21:19)
[2021-06-02] MEDS: PANTOPRAZOLE 40 MG TABLET.DR. PO SCH (10:18)
[2021-06-02] MEDS: INSULIN LISPRO 300 UNITS/3 ML VIAL. SQ SCH ×3 (10:20→17:00)
[2021-06-02] MEDS: MEROPENEM 500 MG in IV NORMAL SALINE 50ML 50 ML IV SCH (10:22)
[2021-06-02 11:00] VITALS: BP 137/80
[2021-06-02] MEDS: VANCOMYCIN PER PHARMACY MC PRN (11:24)
--- NOTE | 2021-06-02 11:30 | NUR ---
Pharmacy Vancomycin Dosing Note S:Consulted to monitor and dose vancomycin started 05/26/21. O:FER CHAUDHARY is a 55 year old M with Sepsis . Height: 5 feet, 10 inches Weight: 90.957746 kg [place] Body Weight: 211.00 Adjusted Body Weight: 162.96 Dosing Weight: Other Antibiotics: ZOSYN 05/26 - LABS: Last BUN: 30 Last Creatinine: 6.6 Creatinine Clearance: ESRD HD mL/min Last WBC: 11.7 Last Procalcitonin: Tmax (past 24 hours): 97.7 Microbiology: MGTD I/O: 600/ Drug Levels: Last Random level: 20.9 on 06/02/21 at 0700 Last dose given 05/26/21 at 0547 Vancomycin Dosing: Loading Dose: x1 Dosing Weight: Target Trough: 15-20 A: Based on trough of 20.9: P: 1. Vancomycin 500 mg after each dialysis starting on 06/04/2021. 2. Follow up Random level as needed. 3. Pharmacy will continue to monitor, follow and adjust therapy as needed. Roddy Hernandez [facility], 06/02/21 0512
--- NOTE | 2021-06-02 11:51 | PN ---
DATE: 06/02/2021 SUBJECTIVE: The patient is resting, slightly propped up in bed, in no apparent respiratory distress. He is awake, alert. On questioning him, he denied any complaint. The nursing staff did not voice any concern. Apparently the patient has changed his mind and now is willing to go for surgery and he actually signed consent for a left below-knee amputation. PHYSICAL EXAMINATION: GENERAL: When I examined him, he looked pale. No jaundice, cyanosis or thyromegaly. No jugular venous distention. No limb edema. VITAL SIGNS: His heart rate was 79, blood pressure is 118/68, temperature was 96.5, respiratory rate was 20 and oxygen saturation was 97%. The rest of clinical exam stable. EXTREMITIES: He has left forefoot amputation with dehiscence of the wound. He is extremely oliguric to completely anuric. His intake was incompletely recorded. LABORATORY DATA: This morning showed a white cell count 11,700, hemoglobin 9.9, hematocrit 32, MCV 87, platelet count 252,000. His chemistry is variable as he is hemodialysis dependent. ASSESSMENT: 1. The patient is status post left transmetatarsal amputation with dehiscence of the wound, large eschar on the dorsum of the left foot. He was seen by the vascular surgeon who also has recommended a left below-knee amputation and apparently the patient has finally accepted and signed the consent for a left below-knee amputation. 2. He is also symptomatic COVID-19. 3. The patient has end-stage renal disease, on hemodialysis Monday, Monday, Monday. 4. Type 1 diabetes mellitus with triopathy. 5. Atrial fibrillation, rate controlled, not anticoagulated. 6. Coronary artery disease status post coronary artery bypass graft surgery. 7. Ischemic cardiomyopathy. 8. Hypertension. 9. Cerebrovascular accident. 10. Peripheral neuropathy. 11. History of chronic subdural hematoma that apparently has resolved. 12. Seizure disorder. PLAN: To obviously continue with IV antibiotic as recommended by the Infectious Disease specialist, so the patient apparently agreed to undergo left below-knee amputation and signed a consent; however the timing of surgery is unknown. I spoke with the DON at [facility] and she is willing to take him there. CHERYL/EBEN DR: Tyler TID: [id number]
--- NOTE | 2021-06-02 12:04 | PDOC ---
TEJAL GUO [employer]ERSON 06/02/21 1204: CARDIO Progress Notes Date and Time Date of Service 06/02/2021 Time of Evaluation 1000 Subjective Subjective: No Chest Pain, No shortness of breath, No Palpitations Vitals Vitals Vital Signs Date Time Temp Pulse Resp B/P (MAP) Pulse Ox O2 Delivery O2 Flow Rate FiO2 06/02/21 11:00 98.6 76 20 137/80 (99) 99 Room Air 98.6 Weight Weight [ ] Input and Output Intake and Output Intake and Output 06/02/21 07:00 Intake Total 600 ml Balance 600 ml Intake Oral 450 ml IV Total 150 ml # Bowel Movements 6 Laboratory Labs Laboratory Tests Test 06/01/21 16:30 06/01/21 20:44 06/02/21 07:00 06/02/21 07:49 Glucose (Fingerstick) 194 mg/dL (70-99) 191 mg/dL (70-99) 193 mg/dL (70-99) White Blood Count 11.7 x10^3/uL (4.0-11.0) Red Blood Count 3.72 x10^6/uL (4.30-5.70) Hemoglobin 9.9 g/dL (13.0-17.5) Hematocrit 32.4 % (39.0-53.0) Mean Corpuscular Volume 87 fL (79-100) Mean Corpuscular Hemoglobin 27 pg (25-35) Mean Corpuscular Hemoglobin Concent 31 g/dL (31-37) Red Cell Distribution Width 24.8 % (11.5-14.5) Platelet Count 252 x10^3/uL (140-400) Sodium Level 139 mmol/L (136-145) Potassium Level 3.8 mmol/L (3.5-5.1) Chloride Level 100 mmol/L (98-107) Carbon Dioxide Level 23 mmol/L (21-32) Anion Gap 16 (6-14) Blood Urea Nitrogen 30 mg/dL (8-26) Creatinine 6.6 mg/dL (0.7-1.3) Estimated GFR (Cockcroft-Gault) 8.8 BUN/Creatinine Ratio 5 (6-20) Glucose Level 206 mg/dL (70-99) Calcium Level 8.0 mg/dL (8.5-10.1) Total Bilirubin 1.0 mg/dL (0.2-1.0) Aspartate Amino Transf (AST/SGOT) 85 U/L (15-37) Alanine Aminotransferase (ALT/SGPT) 80 U/L (16-63) Alkaline Phosphatase 87 U/L (46-116) Total Protein 6.9 g/dL (6.4-8.2) Albumin 2.2 g/dL (3.4-5.0) Albumin/Globulin Ratio 0.5 (1.0-1.7) Random Vancomycin Level 20.9 mcg/mL Microbiology Micro Microbiology 05/28/21 Gram Stain - Final, Complete 05/28/21 Aerobic and Anaerobic Culture - Final, Complete 05/28/21 Antimicrobic Susceptibility - Final, Complete 05/26/21 Blood Culture - Final, Complete NO GROWTH AFTER 5 DAYS Review of Systems Constitutional: yes: other (CONFUSED) Physical Exam HEENT: Neck Supple W Full Motion Chest: Symmetric LUNGS: Other (diminished bases ) Heart: RRR (atrial flutter) Abdomen: Soft N/T Extremities: Other (left TMA- drsg intact ) Neurology: alert, oriented, follow commands Assessment Assessment 1. COVID +: now afebrile: 2. Acute encephalopathy 3. ESRD on HD 4. PAFIB: rate controlled in atrial flutter 5. CAD: s/p CABG. unclear if any recent w/u, clinically stable 6. HTN; controlled overall 7. DM2 8. S/P L TMA with dehiscence. L BKA recommended, but patient refused 9. Anemia: s/p transfusion. hgb stable. 10. Sepsis 11. Hx of mild CM: past EF at 45%. Limited echo with EF 30-35% 12. Mild to moderate , moderate to severe TR. Estimated PAP 60 mmHg. Recommendations Continued metoprolol for rate control Poor candidate for anticoagulation with anemia and prior hx of SDH. Continue baby ASA for stroke prevention Secondary prevention measures Fluid offloading via HD Continue COVID treatment Supportive care. Outpt ischemic workup if none recent Continue to refuse LBKA, further goals of care discussion with pt and sister. No prior imgaing noted to LLE will obtain arterial duplex Justicifation of Admission Dx: Justifications for Admission: Justification of Admission Dx: N/A CARRIE MCCLAIN MD 06/02/21 6603: CARDIO Progress Notes Plan Plan Patient seen and examined. Agree with above nurse practitioner note. Reviewed left lower extremity arterial study which reveals monophasic waveforms throughout suggestive of moderate diffuse disease. Cannot rule out high-grade stenosis at the level of the mid to distal SFA. Also there may be high-grade disease involving the inflow vessels given monophasic waveforms throughout the left lower extremity. The patient ultimately will benefit from angiogram unless there is always been a decision made that he needs a below-knee amputation regardless of how well the wound heals. We will discuss with podiatry service and vascular surgery service. Thank you for this consultation. We will follow along closely. TJEAL GUO APRN Jun 02, 2021 12:04 CARRIE MCCLAIN MD Jun 02, 2021 18:47
--- NOTE | 2021-06-02 12:12 | PDOC ---
DATE OF SERVICE DATE: 06/02/21 TIME: 12:12 SUBJECTIVE ROS Seen during dialysis, reports feeling better . On RA OBJECTIVE Vital Signs Vital Signs Date Time Temp Pulse Resp B/P (MAP) Pulse Ox O2 Delivery O2 Flow Rate FiO2 06/02/21 11:00 98.6 76 20 137/80 (99) 99 Room Air 98.6 I & 0 Intake and Output 06/02/21 07:00 Intake Total 600 ml Balance 600 ml Intake Oral 450 ml IV Total 150 ml # Bowel Movements 6 PHYSICAL EXAM Physical Exam GENERAL:not in distress. HEENT: Both pupils are round and reacting. OM moist NECK: Supple. No JVP, LUNGS: Clear. HEART: S1, S2, regular. ABDOMEN: Soft, nontender. No organomegaly. EXTREMITIES: There are multiple superficial wounds on to the extremities. Muscle wasting present. full-length TMA incision has dehisced and some purulent drainage coming out NEUROLOGIC: Grossly normal DIAGNOSIS/ASSESSMENT Assessment & Plan ESRD - on HD MWF, seen during dialysis, tolerating well. Continue as ordered, Colten PEREZ Anemia- Continue Retacrit COVID-19 positive.On RA Left foot infection. Currently on Abx. Vascular is recommending BKA Coronary artery disease. Hypertension. Diabetes. COMMENT/RELEVANT DATA Meds Current Medications Medications (Trade) Dose Ordered Sig/Babak Start Time Stop Time Status Last Admin Dose Admin Acetaminophen (Tylenol) 650 mg PRN Q4HRS PRN 05/26/21 03:30 05/27/21 03:29 DC Albumin Human 200 ml @ 200 mls/hr 1X PRN PRN 05/31/21 10:15 05/31/21 16:14 DC Aspirin (Ecotrin) 81 mg DAILY 05/26/21 14:00 06/02/21 10:17 81 MG Atorvastatin Calcium (Lipitor) 10 mg DAILY 05/26/21 14:00 06/02/21 10:18 10 MG Cyanocobalamin (Vitamin B-12) 1,000 mcg DAILY 05/27/21 09:00 06/02/21 10:17 1,000 MCG Dextrose (Dextrose 50%-Water Syringe) 12.5 gm PRN Q15MIN PRN 05/26/21 12:45 Duloxetine HCl (Cymbalta) 60 mg HS 05/26/21 21:00 06/01/21 20:53 60 MG Epoetin Catalino-epbx (RETACRIT for ESRD PTS) 10,000 unit MoWeFr@2100 05/26/21 21:00 05/31/21 21:18 10,000 UNIT EZETIMIBE (Zetia) 10 mg DAILY 05/26/21 14:00 06/02/21 10:17 10 MG Fluconazole (Diflucan) 200 mg DAILY 06/02/21 09:00 06/02/21 10:18 200 MG Info (PHARMACY MONITORING -- do not chart) 1 each PRN DAILY PRN 05/31/21 10:15 Insulin Human Lispro (HumaLOG) 0-5 UNITS TIDWMEALS 05/26/21 17:00 06/02/21 10:20 2 UNITS Lactobacillus Rhamnosus (Culturelle) 1 cap BID 05/26/21 21:00 06/02/21 10:18 1 CAP Levetiracetam (Keppra) 500 mg BID 05/30/21 09:00 06/02/21 10:18 500 MG Meropenem 500 mg/ Sodium Chloride 50 ml @ 100 mls/hr DAILY 06/02/21 09:00 06/02/21 10:22 100 MLS/HR Metoprolol Succinate (Toprol Xl) 50 mg DAILY 05/28/21 14:00 06/02/21 10:18 50 MG Mirtazapine (Remeron) 45 mg QHS 05/26/21 21:00 06/01/21 20:53 45 MG Non-Formulary Medication (Icosapent Ethyl (Vascepa)) 2 cap BID 05/26/21 21:00 UNV Ondansetron HCl (Zofran) 4 mg PRN Q8HRS PRN 05/26/21 03:30 05/27/21 03:29 DC Pantoprazole Sodium (Protonix) 40 mg DAILYAC 05/26/21 14:00 06/02/21 10:18 40 MG Perflutren Protein Type A Microsphe (Optison) 0.66 mg 1X ONCE 05/31/21 08:15 05/31/21 08:16 DC Piperacillin Sod/ Tazobactam Sod (Zosyn Per Pharmacy) 1 each PRN DAILY PRN 05/26/21 01:30 Cancel Piperacillin Sod/ Tazobactam Sod 2.25 gm/Sodium Chloride 50 ml @ 100 mls/hr Q8HRS 05/26/21 08:00 06/02/21 08:27 DC 06/02/21 05:35 100 MLS/HR Piperacillin Sod/ Tazobactam Sod 3.375 gm/Sodium Chloride 50 ml @ 100 mls/hr 1X ONCE 05/26/21 02:15 05/26/21 02:44 DC 05/26/21 03:25 100 MLS/HR Pregabalin (Lyrica) 225 mg BID 05/26/21 14:00 06/02/21 10:18 225 MG Promethazine HCl (Phenergan) 25 mg PRN Q6HRS PRN 05/26/21 13:00 Sodium Hypochlorite (Dakin'S 05/18 Strength) 1 lópez BID 05/26/21 11:00 06/01/21 09:00 1 LÓPEZ Sodium Chloride 1,000 ml @ 400 mls/hr Q2H30M PRN 05/31/21 10:15 05/31/21 22:14 DC Sodium Chloride (Normal Saline Flush) 10 ml 1X PRN PRN 05/28/21 11:45 05/29/21 11:44 DC Topiramate (Topamax) 100 mg BID 05/26/21 14:00 06/02/21 10:17 100 MG Trazodone HCl (Desyrel) 50 mg QHS 05/26/21 21:00 06/01/21 20:54 50 MG Vancomycin HCl (Vanco Per Pharmacy) 1 each PRN DAILY PRN 05/26/21 03:15 06/02/21 11:24 1 EACH Vancomycin HCl (Vancomycin Random Level) 1 each 1X ONCE 06/02/21 06:00 06/02/21 06:01 DC 06/02/21 06:00 1 EACH Vancomycin HCl 1.75 gm/Sodium Chloride 500 ml @ 250 mls/hr 1X ONCE 05/26/21 06:00 05/26/21 07:59 DC 05/26/21 05:47 250 MLS/HR Vancomycin HCl 500 mg/Sodium Chloride 100 ml @ 100 mls/hr QMWF 06/04/21 16:00 Vitamin D (Vitamin D3) 1,000 unit DAILY 05/26/21 14:00 06/02/21 10:18 1,000 UNIT Lab Laboratory Tests Test 06/01/21 16:30 1/18/22 20:44 06/02/21 07:00 06/02/21 07:49 Glucose (Fingerstick) 194 mg/dL (70-99) 191 mg/dL (70-99) 193 mg/dL (70-99) White Blood Count 11.7 x10^3/uL (4.0-11.0) Red Blood Count 3.72 x10^6/uL (4.30-5.70) Hemoglobin 9.9 g/dL (13.0-17.5) Hematocrit 32.4 % (39.0-53.0) Mean Corpuscular Volume 87 fL (79-100) Mean Corpuscular Hemoglobin 27 pg (25-35) Mean Corpuscular Hemoglobin Concent 31 g/dL (31-37) Red Cell Distribution Width 24.8 % (11.5-14.5) Platelet Count 252 x10^3/uL (140-400) Sodium Level 139 mmol/L (136-145) Potassium Level 3.8 mmol/L (3.5-5.1) Chloride Level 100 mmol/L (98-107) Carbon Dioxide Level 23 mmol/L (21-32) Anion Gap 16 (6-14) Blood Urea Nitrogen 30 mg/dL (8-26) Creatinine 6.6 mg/dL (0.7-1.3) Estimated GFR (Cockcroft-Gault) 8.8 BUN/Creatinine Ratio 5 (6-20) Glucose Level 206 mg/dL (70-99) Calcium Level 8.0 mg/dL (8.5-10.1) Total Bilirubin 1.0 mg/dL (0.2-1.0) Aspartate Amino Transf (AST/SGOT) 85 U/L (15-37) Alanine Aminotransferase (ALT/SGPT) 80 U/L (16-63) Alkaline Phosphatase 87 U/L (46-116) Total Protein 6.9 g/dL (6.4-8.2) Albumin 2.2 g/dL (3.4-5.0) Albumin/Globulin Ratio 0.5 (1.0-1.7) Random Vancomycin Level 20.9 mcg/mL Results All relevant outside records, renal labs, imaging studies, telemetry/EKG's were reviewed. Justicifation of Admission Dx: Justifications for Admission: Justification of Admission Dx: N/A JUSTIN LARKIN MD Jun 02, 2021 12:12
[2021-06-02] MEDS ORDERED: DIALYSIS PATIENT. MC PRN ×2 (14:15)
[2021-06-02] MEDS ORDERED: ALBUMIN HUMAN 25% 100 ML IV PRN (14:15)
[2021-06-02] MEDS ORDERED: IV NORMAL SALINE 1000ML BAG 1,000 ML IV PRN ×2 (14:15)
[2021-06-02 19:00] VITALS: BP 128/76
--- NOTE | 2021-06-02 19:29 | RAD ---
MR#: [id number] Date of Study: 06/02/2021 Ordering Physician: TEJAL GUO, Referring Physician: TEJAL GUO, Tech: Sascha Juarez MBA, RDMS, RVT, RDCS, RTR APPROVED REPORT Patient Location: IN-PATIENT Indications PAD VELOCITY AND DOPPLER WAVEFORM ANALYSIS RIGHT cm/secWaveformSeverity LEFT cm/secWaveform Severity dCFA dCFA 156.0Monophasic Prof Fem Art. Prof Fem Art. 65.0Monophasic Fem Art Prox. Fem Art Prox. 312.0Monophasic Fem Art Mid. Fem Art Mid. 145.0Monophasic Fem Art Dist. Fem Art Dist. 170.0Monophasic Pop Art(Fossa) Pop Art(AK) 83.0Monophasic DROP HAMMER MECHANIC Prox. DROP HAMMER MECHANIC Prox. 52.0Monophasic DROP HAMMER MECHANIC Dist. DROP HAMMER MECHANIC Dist. 43.0Monophasic SANJEEV Prox. SANJEEV Prox. 52.0Monophasic DPA DPA 18Monophasic Findings Grayscale images of the left lower extremity arterial vessels demonstrate moderate to severe diffuse atherosclerosis. Based on spectral waveforms and color Doppler there is likely at least moderate stenosis involving th e left common femoral artery and likely greater than 75% stenosis involving the left superficial femo ral artery. There are diffuse monophasic waveforms with two-vessel runoff below the knee. The peroneal artery is not well visualized. Critical Notification Critical Value: No <Conclusion> 1. Probable high-grade left common femoral and superficial femoral arterial disease. Signed by : Robert Stahl, Electronically Approved : 06/02/2021 19:28:27
[2021-06-02] MEDS: EPOETIN ALFA-EPBX for ESRD 20,000 UNIT/ML VIAL. SQ SCH (21:15)
[2021-06-02] MEDS: DULoxetine HCL 30 MG CAPSULE.DR PO SCH (21:19)
[2021-06-02] MEDS: traZODone 50 MG TABLET. PO SCH (21:20)
[2021-06-02] MEDS: MIRTAZAPINE 15 MG TABLET PO SCH (21:25)
[2021-06-02 23:44] VITALS: BP 96/40
[2021-06-03] VITALS (7 sets, daily range): BP systolic 96–149; BP diastolic 50–87
--- NOTE | 2021-06-03 08:34 | PDOC ---
Infectious Disease Note Subjective: Subjective Patient is feeling better O2 by nasal cannula Vital Signs: Vital Signs Vital Signs Date Time Temp Pulse Resp B/P (MAP) Pulse Ox O2 Delivery O2 Flow Rate FiO2 06/03/21 07:00 98.6 79 18 144/82 (102) 100 Room Air 98.6 06/03/21 00:27 2.0 Physical Exam: PHYSICAL EXAM GENERAL: Alert awake oriented x3 male in no acute distress on room air HEENT: Both pupils are round and reacting. No conjunctival lesion. No lesion in the mouth. NECK: Supple. No JVP, no lymphadenopathy. LUNGS: Clear. HEART: S1, S2, regular. ABDOMEN: Soft, nontender. No organomegaly. EXTREMITIES: There are multiple superficial wounds on to the extremities. Muscle wasting present. Left foot reveals dehiscence of the amputation site. Surrounding Black eschar around the wound noted. Unhealthy necrotic base. Large area involved with gangrenous eschar on the dorsum of the foot. NEUROLOGIC: The patient is awake, try to say something, mumbles few words, occasional appropriate nodding. Medications: Inpatient Meds: Medications reviewed. Labs: Lab Laboratory Tests Test 06/02/21 17:51 06/02/21 20:24 06/03/21 08:11 Glucose (Fingerstick) 92 mg/dL (70-99) 115 mg/dL (70-99) 172 mg/dL (70-99) Micro Micro RUN DATE: 05/29/21 [facility] LAB *LIVE* PAGE 1 RUN TIME: 1127 Specimen Inquiry PATIENT: FER CHAUDHARY ACCT: [id number] LOC: [address] [place] [address] U: [id number] AGE/SX: 55/M ROOM: 582 RE05/26/[address]: KAHLIL WADE MD : 1965 BED: 1 DIS: STATUS: ADM IN TLOC: SPEC #: [id number] CHERIE: 05/26/21 STATUS: RES REQ #: [id number] RECD: 05/27/[address]: KAHLIL WADE MD SOURCE: FOOT ENTR: 05/27/[address] [facility] [address]: MACHELLE COPE MD SPDESC: NUBIA COLINDRES MD, ZHIPENG DPM ORDERED: CHIDI/SANDRA/MARICEL COMMENTS: LEFT FOOT SWAB Procedure Result GRAM STAIN Final Final GRAM NEGATIVE RODS:MANY SQUAMOUS EPI CELL:NONE SEEN PMN (WBCs):RARE Unless otherwise specified, Testing Performed by: [address] [address] For Inquires, the Physician may contact the Microbiology department at [phone] ANAEROBIC-AEROBIC CULTURE Preliminary Preliminary MANY [ENTEROBACTER CLOACAE COMPLEX] on 05/28/21 at 1127 FEW [MARY ALBICANS] on 05/28/21 at 1127 ENTEROBACTER CLOACAE COMPLEX MARY ALBICANS ANTIMICROBIAL SUSCEPTIBILITY Preliminary Comment NEG JANI 56 ENTEROBACTER CLOACAE COMPLEX ANTIBIOTIC RESULT INTERPRETATION AMPICILLIN/SULBACTAM >16/8 R AMIKACIN <=16 S AMPICILLIN >16 R AMOXICILLIN/K CLAVULANATE >16/8 R AZTREONAM >16 R CEFTRIAXONE >32 R CEFTAZIDIME <=1 S CEFOTAXIME <=2 S CEFOXITIN <=8 R* CEFAZOLIN >16 R CIPROFLOXACIN <=0.25 S CEFEPIME <=2 S CEFUROXIME >16 R ERTAPENEM <=0.5 S RUN DATE: 05/29/21 [facility] [employer] LAB *LIVE* PAGE 2 RUN TIME: 112 Specimen Inquiry SPEC: [id number] PATIENT: FER CHAUDHARY [id number] (Continued) Procedure Result CONTINUED ON NEXT PAGE RUN DATE: 05/29/21 [facility] LAB *LIVE* PAGE 3 RUN TIME: 1127 Specimen Inquiry SPEC: [id number] PATIENT: FER CHAUDHARY Chelsie [id number] (Continued) --- --------- Procedure Result ANTIMICROBIAL SUSCEPTIBILITY Preliminary (continued) GENTAMICIN <=2 S LEVOFLOXACIN <=0.5 S MEROPENEM <=1 S PIPERACILLIN/TAZOBACTAM >64 R TRIMETHOPRIM/SULFAMETHOXAZOLE <=0.5/9.5 S TETRACYCLINE <=4 S TOBRAMYCIN <=2 S Unless otherwise specified, Testing Performed by: [address] [address] For Inquires, the Physician may contact the Microbiology department at [phone] -------- ---- Objective: Assessment: 1. Encephalopathy. 2. COVID-19 positive. 3. Fever. Resolved 4. 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 Patient is refusing left BKA Cultures positive for Enterobacter and Mary ESR 54, CRP 149. 5. End-stage renal disease, on hemodialysis. 6. Seizure disorder. 7. Coronary artery disease. 8. Hypertension. 9. Diabetes. Plan: Plan of Care Continue IV Vanc,merrem.fluconazole Left lower extremity arterial ultrasound revealed high-grade stenosis Discussed with vascular team Discussed with JUAN ALBERTO POSADAS MD Jun 03, 2021 08:34
[2021-06-03] MEDS: ASPIRIN ENTERIC COATED 81 MG TABLET.DR. PO SCH (09:52)
[2021-06-03] MEDS: EZETIMIBE 10 MG TABLET. PO SCH (09:52)
[2021-06-03] MEDS: PREGABALIN 75 MG CAPSULE PO SCH ×2 (09:52→21:40)
[2021-06-03] MEDS: LACTOBACILLUS RHAMNOSUS GG 1 CAPSULE. PO SCH ×2 (09:53→21:39)
[2021-06-03] MEDS: MEROPENEM 500 MG in IV NORMAL SALINE 50ML 50 ML IV SCH (09:53)
[2021-06-03] MEDS: FLUCONAZOLE 100 MG TABLET. PO SCH (09:54)
[2021-06-03] MEDS: levETIRAcetam 500 MG TABLET PO SCH ×2 (09:54→21:40)
[2021-06-03] MEDS: CYANOCOBALAMIN (VITAMIN B-12) 1,000 MCG TABLET. PO SCH (09:54)
[2021-06-03] MEDS: ATORVASTATIN CALCIUM 10 MG TABLET. PO SCH (09:54)
[2021-06-03] MEDS: CHOLECALCIFEROL (VITAMIN D3) 1,000 UNIT TABLET PO SCH (09:54)
[2021-06-03] MEDS: PANTOPRAZOLE 40 MG TABLET.DR. PO SCH (09:54)
[2021-06-03] MEDS: METOPROLOL SUCC 24HR ER 50 MG TAB.ER.24H. PO SCH (09:55)
[2021-06-03] MEDS: TOPIRAMATE 100 MG TABLET. PO SCH ×2 (09:55→21:00)
[2021-06-03] MEDS: INSULIN LISPRO 300 UNITS/3 ML VIAL. SQ SCH ×3 (09:57→17:28)
--- NOTE | 2021-06-03 09:58 | PDOC ---
TEJAL GUO MICROBIOLOGY LAB TECHNICIAN 06/03/21 0958: CARDIO Progress Notes Date and Time Date of Service 06/03/2021 Time of Evaluation 0940 Subjective Subjective: No Chest Pain, No shortness of breath, No Palpitations Vitals Vitals Vital Signs Date Time Temp Pulse Resp B/P (MAP) Pulse Ox O2 Delivery O2 Flow Rate FiO2 06/03/21 07:00 98.6 79 18 144/82 (102) 100 Room Air 98.6 06/03/21 00:27 2.0 Weight Weight [ ] Input and Output Intake and Output Intake and Output 06/03/21 07:00 Intake Total 50 ml Balance 50 ml Intake Oral 50 ml Laboratory Labs Laboratory Tests Test 06/02/21 17:51 06/02/21 20:24 06/03/21 08:11 Glucose (Fingerstick) 92 mg/dL (70-99) 115 mg/dL (70-99) 172 mg/dL (70-99) Microbiology Micro Microbiology 05/28/21 Gram Stain - Final, Complete 05/28/21 Aerobic and Anaerobic Culture - Final, Complete 05/28/21 Antimicrobic Susceptibility - Final, Complete 05/26/21 Blood Culture - Final, Complete NO GROWTH AFTER 5 DAYS Review of Systems Constitutional: yes: other (CONFUSED) Physical Exam HEENT: Neck Supple W Full Motion Chest: Symmetric LUNGS: Other (diminished bases ) Heart: RRR (atrial flutter) Abdomen: Soft N/T Extremities: Other (left TMA- drsg intact ) Neurology: alert, oriented, follow commands Assessment Assessment 1. COVID +: now afebrile: 2. Acute encephalopathy 3. ESRD on HD 4. PAFIB: rate controlled in atrial flutter 5. CAD: s/p CABG. unclear if any recent w/u, clinically stable 6. HTN; controlled overall 7. DM2 8. S/P L TMA with dehiscence. L BKA recommended per vascular. Pt has agreed to LBKA. 9. Anemia: s/p transfusion. hgb stable. 10. Sepsis 11. Hx of mild CM: past EF at 45%. Limited echo with EF 30-35% 12. Mild to moderate , moderate to severe TR. Estimated PAP 60 mmHg. 13. Severe LLE PAD: diffuse disease with probable high-grade left common femoral and superficial femoral arterial disease Recommendations Continued metoprolol for rate control Poor candidate for anticoagulation with anemia and prior hx of SDH. Continue baby ASA for stroke prevention Secondary prevention measures Fluid offloading via HD Continue COVID treatment Supportive care. Outpt ischemic workup if none recent He would benefit further imaging with angiogram to LLE with possible SEAM TAPER MACHINE prior toLBKA. Discussed with ID, await input from vascular. Justicifation of Admission Dx: Justifications for Admission: Justification of Admission Dx: N/A CARRIE MCCLAIN MD 06/04/21 0114: CARDIO Progress Notes Plan Plan Late entry for 06/03/21 Pt. seen and examined. Agree with above DIE DRAWING CHECKER note. TEJAL GUO APRN Jun 03, 2021 09:58 CARRIE MCCLAIN MD Jun 04, 2021 01:14
--- NOTE | 2021-06-03 10:36 | PN ---
DATE: 06/03/2021 SUBJECTIVE: The patient is resting, slightly propped up in bed, in no apparent distress, awake, alert. On questioning him, denied any complaint. Nursing staff did not voice any concerns that he had an eventful night. PHYSICAL EXAMINATION: GENERAL: When I examined him, he looked pale, somewhat cachectic, but not jaundiced or cyanosed, no lymphadenopathy, no thyromegaly, no jugular venous distention. No limb edema. VITAL SIGNS: His heart rate was 79, blood pressure is 144/82, temperature was 98.6, respiratory rate was 18 and oxygen saturation was 100% on room air. HEAD, EYES, EARS, NOSE, AND THROAT: Normocephalic, atraumatic. NECK: Supple. HEART: Showed normal first and second heart sounds. No gallop, rub or murmur. CHEST: Showed central trachea, equal bilateral chest expansion, air entry, vesicular breath sounds. No crepitation or rhonchi. ABDOMEN: Scaphoid, soft, nontender. NEUROLOGIC: He was sleepy, but arousable. All cranial nerves intact. He moves all extremities without difficulty. He has left forefoot amputation with dehisced wound. His intake and output are incompletely recorded. LABORATORY DATA: As of yesterday showed a white cell count 11,700, hemoglobin 9.9, hematocrit 32, MCV 87 and platelet count 252,000. His chemistry is variable, he is hemodialysis dependent. His blood sugar is reasonably controlled. ASSESSMENT: 1. The patient is status post left transmetatarsal amputation with dehiscence of the wound with a large eschar on the dorsum of the left foot. He was seen by the Vascular Surgeon who also recommended left below-knee amputation and apparently the patient has finally agreed and signed a consent for a left below-knee amputation. 2. He also has an asymptomatic COVID-19 infection. 3. The patient has end-stage renal disease, on hemodialysis Monday, Monday, Monday. 4. Type 1 diabetes mellitus with triopathy. 5. Atrial fibrillation, rate controlled, not anticoagulated. 6. Coronary artery disease status post coronary artery bypass graft surgery. 7. Ischemic cardiomyopathy. 8. Hypertension. 9. Cerebrovascular accident. 10. Peripheral neuropathy. 11. History of chronic subdural hematoma that apparently has resolved. 12. Seizure disorder. 13. Peripheral vascular disease, status post left transmetatarsal amputation. PLAN: To continue obviously with IV antibiotic as recommended by Infectious specialist. Continue with hemodialysis as per Nephrology team. Continue with wound care. Continue to monitor his blood sugar and adjust insulin as needed. CHERYL/EBEN DR: Tyler TID: [id number]
--- NOTE | 2021-06-03 11:31 | PDOC ---
DATE OF SERVICE DATE: 06/03/21 TIME: 11:30 SUBJECTIVE ROS reports feeling better . On RA OBJECTIVE Vital Signs Vital Signs Date Time Temp Pulse Resp B/P (MAP) Pulse Ox O2 Delivery O2 Flow Rate FiO2 06/03/21 09:55 79 144/82 06/03/21 07:00 98.6 18 100 Room Air 98.6 06/03/21 00:27 2.0 I & 0 Intake and Output 06/03/21 07:00 Intake Total 50 ml Balance 50 ml Intake Oral 50 ml PHYSICAL EXAM Physical Exam GENERAL:not in distress. HEENT: Both pupils are round and reacting. OM moist NECK: Supple. No JVP, LUNGS: Clear. HEART: S1, S2, regular. ABDOMEN: Soft, nontender. No organomegaly. EXTREMITIES: There are multiple superficial wounds on to the extremities. Muscle wasting present. full-length TMA incision has dehisced and some purulent drainage coming out NEUROLOGIC: Grossly normal DIAGNOSIS/ASSESSMENT Assessment & Plan ESRD - on HD MWF, dialyzed yesterday. Clinically stable. Currently no indication for dialysis today Anemia- Continue Retacrit COVID-19 positive.On RA Left foot infection. Currently on Abx. Vascular is recommending BKA Coronary artery disease. Hypertension. Diabetes. COMMENT/RELEVANT DATA Meds Current Medications Medications (Trade) Dose Ordered Sig/Babak Start Time Stop Time Status Last Admin Dose Admin Acetaminophen (Tylenol) 650 mg PRN Q4HRS PRN 05/26/21 03:30 05/27/21 03:29 DC Albumin Human 100 ml @ 200 mls/hr 1X PRN PRN 06/02/21 14:15 06/02/21 20:14 DC 06/02/21 15:00 200 MLS/HR Aspirin (Ecotrin) 81 mg DAILY 05/26/21 14:00 06/03/21 09:52 81 MG Atorvastatin Calcium (Lipitor) 10 mg DAILY 05/26/21 14:00 06/03/21 09:54 10 MG Cyanocobalamin (Vitamin B-12) 1,000 mcg DAILY 05/27/21 09:00 06/03/21 09:54 1,000 MCG Dextrose (Dextrose 50%-Water Syringe) 12.5 gm PRN Q15MIN PRN 05/26/21 12:45 Duloxetine HCl (Cymbalta) 60 mg HS 05/26/21 21:00 06/02/21 21:19 60 MG Epoetin Catalino-epbx (RETACRIT for ESRD PTS) 10,000 unit MoWeFr@2100 05/26/21 21:00 06/02/21 21:15 10,000 UNIT EZETIMIBE (Zetia) 10 mg DAILY 05/26/21 14:00 06/03/21 09:52 10 MG Fluconazole (Diflucan) 200 mg DAILY 06/02/21 09:00 06/03/21 09:54 200 MG Info (PHARMACY MONITORING -- do not chart) 1 each PRN DAILY PRN 06/02/21 14:15 Insulin Human Lispro (HumaLOG) 0-5 UNITS TIDWMEALS 05/26/21 17:00 06/03/21 09:57 2 UNITS Lactobacillus Rhamnosus (Culturelle) 1 cap BID 05/26/21 21:00 06/03/21 09:53 1 CAP Levetiracetam (Keppra) 500 mg BID 05/30/21 09:00 06/03/21 09:54 500 MG Meropenem 500 mg/ Sodium Chloride 50 ml @ 100 mls/hr DAILY 06/02/21 09:00 06/03/21 09:53 100 MLS/HR Metoprolol Succinate (Toprol Xl) 50 mg DAILY 05/28/21 14:00 06/03/21 09:55 50 MG Mirtazapine (Remeron) 45 mg QHS 05/26/21 21:00 06/02/21 21:25 45 MG Non-Formulary Medication (Icosapent Ethyl (Vascepa)) 2 cap BID 05/26/21 21:00 UNV Ondansetron HCl (Zofran) 4 mg PRN Q8HRS PRN 05/26/21 03:30 05/27/21 03:29 DC Pantoprazole Sodium (Protonix) 40 mg DAILYAC 05/26/21 14:00 06/03/21 09:54 40 MG Perflutren Protein Type A Microsphe (Optison) 0.66 mg 1X ONCE 05/31/21 08:15 05/31/21 08:16 DC Piperacillin Sod/ Tazobactam Sod (Zosyn Per Pharmacy) 1 each PRN DAILY PRN 05/26/21 01:30 Cancel Piperacillin Sod/ Tazobactam Sod 2.25 gm/Sodium Chloride 50 ml @ 100 mls/hr Q8HRS 05/26/21 08:00 06/02/21 08:27 DC 06/02/21 05:35 100 MLS/HR Piperacillin Sod/ Tazobactam Sod 3.375 gm/Sodium Chloride 50 ml @ 100 mls/hr 1X ONCE 05/26/21 02:15 05/26/21 02:44 DC 05/26/21 03:25 100 MLS/HR Pregabalin (Lyrica) 225 mg BID 05/26/21 14:00 06/03/21 09:52 225 MG Promethazine HCl (Phenergan) 25 mg PRN Q6HRS PRN 05/26/21 13:00 Sodium Hypochlorite (Dakin'S 1 Strength) 1 lópez BID 05/26/21 11:00 06/02/21 21:00 1 LÓPEZ Sodium Chloride 1,000 ml @ 400 mls/hr Q2H30M PRN 06/02/21 14:15 06/03/21 02:14 DC Sodium Chloride (Normal Saline Flush) 10 ml 1X PRN PRN 05/28/21 11:45 05/29/21 11:44 DC Topiramate (Topamax) 100 mg BID 05/26/21 14:00 06/03/21 09:55 100 MG Trazodone HCl (Desyrel) 50 mg QHS 05/26/21 21:00 06/02/21 21:20 50 MG Vancomycin HCl (Vanco Per Pharmacy) 1 each PRN DAILY PRN 05/26/21 03:15 06/02/21 11:24 1 EACH Vancomycin HCl (Vancomycin Random Level) 1 each 1X ONCE 06/02/21 06:00 06/02/21 06:01 DC 06/02/21 06:00 1 EACH Vancomycin HCl 1.75 gm/Sodium Chloride 500 ml @ 250 mls/hr 1X ONCE 05/26/21 06:00 05/26/21 07:59 DC 05/26/21 05:47 250 MLS/HR Vancomycin HCl 500 mg/Sodium Chloride 100 ml @ 100 mls/hr QMWF 06/04/21 16:00 Vitamin D (Vitamin D3) 1,000 unit DAILY 05/26/21 14:00 06/03/21 09:54 1,000 UNIT Lab Laboratory Tests Test 06/02/21 17:51 06/02/21 20:24 06/03/21 08:11 Glucose (Fingerstick) 92 mg/dL (70-99) 115 mg/dL (70-99) 172 mg/dL (70-99) Results All relevant outside records, renal labs, imaging studies, telemetry/EKG's were reviewed. Justicifation of Admission Dx: Justifications for Admission: Justification of Admission Dx: N/A JUSTIN LARKIN MD Jun 03, 2021 11:31
[2021-06-03] MEDS: SODIUM HYPOCHLORITE 0.125% 473 ML BOTTLE. TP SCH ×2 (11:33→21:00)
--- NOTE | 2021-06-03 12:18 | NUR ---
SW following. Discussed with RN, still trying to determine when pt will have the BKA. SNF likely after surgery. SW will continue to follow.
--- NOTE | 2021-06-03 15:44 | PDOC ---
Provider Note Date of Service: DATE: 06/03/21 TIME: 15:41 Provider Note Provider Note Vascular: Paged today for notification that patient has agreed to BKA. He had arterial duplex that shows monophasic throughout with elevated velocity in SFA, spoke with Franklin Gee, cardiology, regarding this. They are planning arteriogram with possible intervention, we will await this procedure to take place to optimize blood flow for healing then we can proceed with BKA. Will follow peripherally. Discussed with Dr. Richardson. Justicifation of Admission Dx: Justifications for Admission: Justification of Admission Dx: N/A AVILA TAYLOR Jun 03, 2021 15:44
[2021-06-03] MEDS: DULoxetine HCL 30 MG CAPSULE.DR PO SCH (21:39)
[2021-06-03] MEDS: traZODone 50 MG TABLET. PO SCH (21:40)
[2021-06-03] MEDS: MIRTAZAPINE 15 MG TABLET PO SCH (21:40)
[2021-06-04 03:12] VITALS: BP 122/75
[2021-06-04 07:00] VITALS: BP 140/83
[2021-06-04] MEDS ORDERED: IV NORMAL SALINE 1000ML BAG 1,000 ML IV PRN ×2 (08:15)
[2021-06-04] MEDS ORDERED: DIALYSIS PATIENT. MC PRN ×2 (08:15)
[2021-06-04] MEDS ORDERED: 0.9 % SODIUM CHLORIDE 10 ML DISP.SYRIN. IV PRN ×2 (08:15)
[2021-06-04] MEDS ORDERED: ALBUMIN HUMAN 25% 200 ML IV PRN (08:15)
[2021-06-04] MEDS: TOPIRAMATE 100 MG TABLET. PO SCH ×2 (08:26→21:21)
[2021-06-04] MEDS: PREGABALIN 75 MG CAPSULE PO SCH ×2 (08:26→21:23)
[2021-06-04] MEDS: CYANOCOBALAMIN (VITAMIN B-12) 1,000 MCG TABLET. PO SCH (08:27)
[2021-06-04] MEDS: METOPROLOL SUCC 24HR ER 50 MG TAB.ER.24H. PO SCH (08:27)
[2021-06-04] MEDS: ASPIRIN ENTERIC COATED 81 MG TABLET.DR. PO SCH (08:27)
[2021-06-04] MEDS: ATORVASTATIN CALCIUM 10 MG TABLET. PO SCH (08:27)
[2021-06-04] MEDS: CHOLECALCIFEROL (VITAMIN D3) 1,000 UNIT TABLET PO SCH (08:27)
[2021-06-04] MEDS: LACTOBACILLUS RHAMNOSUS GG 1 CAPSULE. PO SCH ×2 (08:27→21:21)
[2021-06-04] MEDS: levETIRAcetam 500 MG TABLET PO SCH ×2 (08:28→21:21)
[2021-06-04] MEDS: PANTOPRAZOLE 40 MG TABLET.DR. PO SCH (08:28)
[2021-06-04] MEDS: FLUCONAZOLE 100 MG TABLET. PO SCH (08:28)
[2021-06-04] MEDS: INSULIN LISPRO 300 UNITS/3 ML VIAL. SQ SCH ×3 (08:31→17:53)
[2021-06-04] MEDS: EZETIMIBE 10 MG TABLET. PO SCH (08:36)
[2021-06-04] MEDS: SODIUM HYPOCHLORITE 0.125% 473 ML BOTTLE. TP SCH ×2 (08:42→21:00)
[2021-06-04] MEDS: MEROPENEM 500 MG in IV NORMAL SALINE 50ML 50 ML IV SCH (08:42)
--- NOTE | 2021-06-04 08:47 | PDOC ---
Infectious Disease Note Subjective: Subjective Patient without new complaints On room air Patient has agreed for BKA which is planned after angiogram Vital Signs: Vital Signs Vital Signs Date Time Temp Pulse Resp B/P (MAP) Pulse Ox O2 Delivery O2 Flow Rate FiO2 06/04/21 08:27 79 140/83 06/04/21 07:00 98.5 20 96 Room Air 98.5 06/03/21 20:05 2.0 Physical Exam: PHYSICAL EXAM GENERAL: Alert awake oriented x3 male in no acute distress on room air HEENT: Both pupils are round and reacting. No conjunctival lesion. No lesion in the mouth. NECK: Supple. No JVP, no lymphadenopathy. LUNGS: Clear. HEART: S1, S2, regular. ABDOMEN: Soft, nontender. No organomegaly. EXTREMITIES: There are multiple superficial wounds on to the extremities. Muscle wasting present. Left foot reveals dehiscence of the amputation site. Surrounding Black eschar around the wound noted. Unhealthy necrotic base. Large area involved with gangrenous eschar on the dorsum of the foot. NEUROLOGIC: The patient is awake, try to say something, mumbles few words, occasional appropriate nodding. Medications: Inpatient Meds: Medications reviewed. Labs: Lab Laboratory Tests Test 06/03/21 11:47 06/03/21 16:26 06/03/21 20:24 Glucose (Fingerstick) 163 mg/dL (70-99) 160 mg/dL (70-99) 173 mg/dL (70-99) Micro Micro RUN DATE: 05/29/21 [facility] LAB *LIVE* PAGE 1 RUN TIME: 1127 Specimen Inquiry PATIENT: FER CHAUDHARY ACCT: [id number] LOC: [address] [place] [address] U: [id number] AGE/SX: 55/M ROOM: [facility] RE05/26/[address]: KAHLIL WADE MD : 1965 BED: 1 DIS: STATUS: ADM IN TLOC: SPEC #: [id number] CHERIE: 05/26/21 STATUS: RES REQ #: [id number] RECD: 05/27/[address]: KAHLIL WADE MD SOURCE: FOOT ENTR: 05/27/[address]: MACHELLE COPE MD SPDESC: NUBIA COLINDRES MD, ZHIPENG DPM ORDERED: CHIDI/SANDRA/MARICEL COMMENTS: LEFT FOOT SWAB Procedure Result GRAM STAIN Final Final GRAM NEGATIVE RODS:MANY SQUAMOUS EPI CELL:NONE SEEN PMN (WBCs):RARE Unless otherwise specified, Testing Performed by: [address] [address] For Inquires, the Physician may contact the Microbiology department at [phone] ANAEROBIC-AEROBIC CULTURE Preliminary Preliminary MANY [ENTEROBACTER CLOACAE COMPLEX] on 05/28/21 at 1127 FEW [MARY ALBICANS] on 05/28/21 at 1127 ENTEROBACTER CLOACAE COMPLEX MARY ALBICANS ANTIMICROBIAL SUSCEPTIBILITY Preliminary Comment NEG JANI 56 ENTEROBACTER CLOACAE COMPLEX ANTIBIOTIC RESULT INTERPRETATION AMPICILLIN/SULBACTAM >16/8 R AMIKACIN <=16 S AMPICILLIN >16 R AMOXICILLIN/K CLAVULANATE >16/8 R AZTREONAM >16 R CEFTRIAXONE >32 R CEFTAZIDIME <=1 S CEFOTAXIME <=2 S CEFOXITIN <=8 R* CEFAZOLIN >16 R CIPROFLOXACIN <=0.25 S CEFEPIME <=2 S CEFUROXIME >16 R ERTAPENEM <=0.5 S RUN DATE: 05/29/21 [facility] LAB *LIVE* PAGE 2 RUN TIME: 1127 Specimen Inquiry SPEC: [id number] PATIENT: POLLOFER Chelsie [id number] (Continued) Procedure Result CONTINUED ON NEXT PAGE RUN DATE: 05/29/21 [facility] LAB *LIVE* PAGE 3 RUN TIME: 1127 Specimen Inquiry SPEC: [id number] PATIENT: FER CHAUDHARY [id number] (Continued) Procedure Result ANTIMICROBIAL SUSCEPTIBILITY Preliminary (continued) GENTAMICIN <=2 S LEVOFLOXACIN <=0.5 S MEROPENEM <=1 S PIPERACILLIN/TAZOBACTAM >64 R TRIMETHOPRIM/SULFAMETHOXAZOLE <=0.5/9.5 S TETRACYCLINE <=4 S TOBRAMYCIN <=2 S Unless otherwise specified, Testing Performed by: [address] [address] For Inquires, the Physician may contact the Microbiology department at [phone] Objective: Assessment: 1. Encephalopathy. 2. COVID-19 positive. 3. Fever. Resolved 4. 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 Patient is refusing left BKA Cultures positive for Enterobacter and Mary ESR 54, CRP 149. 5. End-stage renal disease, on hemodialysis. 6. Seizure disorder. 7. Coronary artery disease. 8. Hypertension. 9. Diabetes. Plan: Plan of Care Continue IV Vanc,merrem.fluconazole for now Vascular and cardiology input noted Continue local wound care as directed Continue supportive care Discussed with JUAN ALBERTO POSADAS MD Jun 04, 2021 08:47
--- NOTE | 2021-06-04 09:51 | PN ---
DATE: 06/04/2021 SUBJECTIVE: The patient is resting, slightly propped up in bed, no apparent distress, awake, alert. On questioning him, denied any complaint. The nursing staff did not voice any concern, stated that he had an eventful night. Apparently, he had an arterial Doppler ultrasound, which basically showed that the patient has a probable high-grade left common femoral and superficial femoral artery disease and he is scheduled to have an arteriogram on Monday with a possible angioplasty or perhaps stent deployment, after which the vascular surgeon will proceed with left below-knee amputation. Meanwhile, he continues to be on IV antibiotic in the form of vancomycin as well as meropenem. PHYSICAL EXAMINATION: GENERAL: When I saw him today, he was pale, but not jaundiced, cyanosed. No thyromegaly. No jugular venous distention. No limb edema. VITAL SIGNS: His heart rate was 79, blood pressure was 140/83, temperature was 98.5, respiratory rate was 20 and oxygen saturation was 96%. HEAD, EYES, EARS, NOSE AND THROAT: Normocephalic, atraumatic. NECK: Supple. HEART: Showed normal first and second heart sounds. No gallop, rub or murmur. CHEST: Clear to auscultation. No crepitation or rhonchi. ABDOMEN: Distended, soft, nontender. NEUROLOGIC: He was awake, alert, responding appropriately. All cranial nerves intact. He moves upper extremities without difficulty. He has left forefoot amputation with infected dehisced wound. His intake was 600, no output was recorded. LABORATORY DATA: His lab work showed his blood sugar is reasonably controlled. ASSESSMENT: 1. The patient is status post left transmetatarsal amputation with dehiscence and infection of the wound and a large eschar on the dorsum of the left foot. He was seen by the vascular surgeon who also recommended left below-knee amputation and apparently, the patient has finally agreed and signed a consent for left below-knee amputation. 2. He has arterial Doppler ultrasound that showed significant stenosis, for which he is scheduled for arteriogram on Monday followed by left below-knee amputation. 3. He has an asymptomatic COVID-19 infection. 4. The patient has end-stage renal disease, on hemodialysis Monday, Monday, Monday. 5. Type 1 diabetes mellitus with triopathy. 6. Atrial fibrillation, rate controlled, not anticoagulated. 7. Coronary artery disease, status post coronary artery bypass graft surgery. 8. Ischemic cardiomyopathy. 9. Hypertension. 10. Cerebrovascular accident. 11. Peripheral neuropathy. 12. History of chronic subdural hematoma that apparently has resolved. 13. Seizure disorder. 14. Peripheral arterial disease, status post left transmetatarsal amputation. PLAN: To continue with antibiotic as recommended by Infectious specialist. Continue with hemodialysis as per Nephrology. Continue with wound care. Continue to monitor his blood sugar and adjust insulin as needed. RM DR: Tyler TID: [id number]
--- NOTE | 2021-06-04 10:06 | PDOC ---
TEJAL GUO RN ER 06/04/21 1006: CARDIO Progress Notes Date and Time Date of Service 06/04/2021 Time of Evaluation 0840 Subjective Subjective: Other (asleep) Vitals Vitals Vital Signs Date Time Temp Pulse Resp B/P (MAP) Pulse Ox O2 Delivery O2 Flow Rate FiO2 06/04/21 08:27 79 140/83 06/04/21 07:00 98.5 20 96 Room Air 98.5 06/03/21 20:05 2.0 Weight Weight [ ] Input and Output Intake and Output Intake and Output 06/04/21 07:00 Intake Total 480 ml Balance 480 ml Intake Oral 480 ml # Voids 1 # Bowel Movements 1 Laboratory Labs Laboratory Tests Test 06/03/21 11:47 06/03/21 16:26 06/03/21 20:24 06/04/21 07:26 Glucose (Fingerstick) 163 mg/dL (70-99) 160 mg/dL (70-99) 173 mg/dL (70-99) 162 mg/dL (70-99) Microbiology Micro Microbiology 05/28/21 Gram Stain - Final, Complete 05/28/21 Aerobic and Anaerobic Culture - Final, Complete 05/28/21 Antimicrobic Susceptibility - Final, Complete 05/26/21 Blood Culture - Final, Complete NO GROWTH AFTER 5 DAYS Review of Systems Constitutional: yes: other (CONFUSED) Physical Exam HEENT: Neck Supple W Full Motion Chest: Symmetric LUNGS: Other (diminished bases ) Heart: RRR (atrial flutter) Abdomen: Soft N/T Extremities: Other (left TMA- drsg intact ) Neurology: alert, oriented, follow commands Other Exams discussed with RN no changes Assessment Assessment 1. COVID +: now afebrile: 2. Acute encephalopathy: resolved 3. ESRD on HD 4. PAFIB: rate controlled in atrial flutter. NSVT: x1 brief episode overnight 5. CAD: s/p CABG. unclear if any recent w/u, clinically stable 6. HTN; controlled overall 7. DM2 8. S/P L TMA with dehiscence. L BKA recommended per vascular. Pt has agreed to LBKA. 9. Anemia: s/p transfusion. hgb stable. 10. Sepsis 11. Hx of mild CM: past EF at 45%. Limited echo with EF 30-35% 12. Mild to moderate , moderate to severe TR. Estimated PAP 60 mmHg. 13. Severe LLE PAD: diffuse disease with probable high-grade left common femoral and superficial femoral arterial disease Recommendations Continued metoprolol for rate control Poor candidate for anticoagulation with anemia and prior hx of SDH. Continue baby ASA for stroke prevention Secondary prevention measures Fluid offloading via HD Continue COVID treatment Supportive care. Outpt ischemic workup if none recent Abdominal aortogram on Monday Justicifation of Admission Dx: Justifications for Admission: Justification of Admission Dx: N/A CARRIE MCCLAIN MD 06/04/21 1741: CARDIO Progress Notes Plan Plan The patient was seen and interviewed as well as examined at the bedside. The chart was reviewed. The case was discussed. Agree with the plan of care. TEJAL GUO APRN Jun 04, 2021 10:06 CARRIE MCCLAIN MD Jun 04, 2021 17:41
--- NOTE | 2021-06-04 10:53 | PDOC ---
DATE OF SERVICE DATE: 06/04/21 TIME: 10:50 SUBJECTIVE ROS Seen during dialysis , feeling better . On RA OBJECTIVE Vital Signs Vital Signs Date Time Temp Pulse Resp B/P (MAP) Pulse Ox O2 Delivery O2 Flow Rate FiO2 06/04/21 08:27 79 140/83 06/04/21 07:00 98.5 20 96 Room Air 98.5 06/03/21 20:05 2.0 I & 0 Intake and Output 06/04/21 07:00 Intake Total 480 ml Balance 480 ml Intake Oral 480 ml # Voids 1 # Bowel Movements 1 PHYSICAL EXAM Physical Exam GENERAL:not in distress. HEENT: Both pupils are round and reacting. OM moist NECK: Supple. No JVP, LUNGS: Clear. HEART: S1, S2, regular. ABDOMEN: Soft, nontender. No organomegaly. EXTREMITIES: There are multiple superficial wounds on to the extremities. Muscle wasting present. full-length TMA incision has dehisced and some purulent drainage coming out NEUROLOGIC: Grossly normal DIAGNOSIS/ASSESSMENT Assessment & Plan ESRD - on HD MWF, Seen during treatment , tolerating well. Continue as ordered. Colten PEREZ Anemia- Continue Retacrit COVID-19 positive.On RA Left foot infection. Currently on Abx. Vascular is recommending BKA. Patient has agreed for BKA which is planned after angiogram Coronary artery disease. Hypertension. Diabetes. COMMENT/RELEVANT DATA Meds Current Medications Medications (Trade) Dose Ordered Sig/Babak Start Time Stop Time Status Last Admin Dose Admin Acetaminophen (Tylenol) 650 mg PRN Q4HRS PRN 05/26/21 03:30 05/27/21 03:29 DC Albumin Human 200 ml @ 200 mls/hr 1X PRN PRN 06/04/21 08:15 06/04/21 14:14 Aspirin (Ecotrin) 81 mg DAILY 05/26/21 14:00 06/04/21 08:27 81 MG Atorvastatin Calcium (Lipitor) 10 mg DAILY 05/26/21 14:00 06/04/21 08:27 10 MG Cyanocobalamin (Vitamin B-12) 1,000 mcg DAILY 05/27/21 09:00 06/04/21 08:27 1,000 MCG Dextrose (Dextrose 50%-Water Syringe) 12.5 gm PRN Q15MIN PRN 05/26/21 12:45 Duloxetine HCl (Cymbalta) 60 mg HS 1/12/22 21:00 06/03/21 21:39 60 MG Epoetin Catalino-epbx (RETACRIT for ESRD PTS) 10,000 unit MoWeFr@2100 05/26/21 21:00 06/02/21 21:15 10,000 UNIT EZETIMIBE (Zetia) 10 mg DAILY 05/26/21 14:00 06/04/21 08:36 10 MG Fluconazole (Diflucan) 200 mg DAILY 06/02/21 09:00 06/04/21 08:28 200 MG Info (PHARMACY MONITORING -- do not chart) 1 each PRN DAILY PRN 06/04/21 08:15 Insulin Human Lispro (HumaLOG) 0-5 UNITS TIDWMEALS 05/26/21 17:00 06/04/21 08:31 2 UNITS Lactobacillus Rhamnosus (Culturelle) 1 cap BID 05/26/21 21:00 06/04/21 08:27 1 CAP Levetiracetam (Keppra) 500 mg BID 05/30/21 09:00 06/04/21 08:28 500 MG Meropenem 500 mg/ Sodium Chloride 50 ml @ 100 mls/hr DAILY 06/02/21 09:00 06/04/21 08:42 100 MLS/HR Metoprolol Succinate (Toprol Xl) 50 mg DAILY 05/28/21 14:00 06/04/21 08:27 50 MG Mirtazapine (Remeron) 45 mg QHS 05/26/21 21:00 06/03/21 21:40 45 MG Non-Formulary Medication (Icosapent Ethyl (Vascepa)) 2 cap BID 05/26/21 21:00 UNV Ondansetron HCl (Zofran) 4 mg PRN Q8HRS PRN 05/26/21 03:30 05/27/21 03:29 DC Pantoprazole Sodium (Protonix) 40 mg DAILYAC 05/26/21 14:00 06/04/21 08:28 40 MG Perflutren Protein Type A Microsphe (Optison) 0.66 mg 1X ONCE 05/31/21 08:15 05/31/21 08:16 DC Piperacillin Sod/ Tazobactam Sod (Zosyn Per Pharmacy) 1 each PRN DAILY PRN 05/26/21 01:30 Cancel Piperacillin Sod/ Tazobactam Sod 2.25 gm/Sodium Chloride 50 ml @ 100 mls/hr Q8HRS 05/26/21 08:00 06/02/21 08:27 DC 06/02/21 05:35 100 MLS/HR Piperacillin Sod/ Tazobactam Sod 3.375 gm/Sodium Chloride 50 ml @ 100 mls/hr 1X ONCE 05/26/21 02:15 05/26/21 02:44 DC 05/26/21 03:25 100 MLS/HR Pregabalin (Lyrica) 225 mg BID 05/26/21 14:00 06/04/21 08:26 225 MG Promethazine HCl (Phenergan) 25 mg PRN Q6HRS PRN 05/26/21 13:00 Sodium Hypochlorite (Dakin'S 1/4 Strength) 1 lópez BID 05/26/21 11:00 06/03/21 21:00 1 LÓPEZ Sodium Chloride 1,000 ml @ 400 mls/hr Q2H30M PRN 06/04/21 08:15 06/04/21 20:14 Sodium Chloride (Normal Saline Flush) 10 ml 1X PRN PRN 06/04/21 08:15 06/05/21 08:14 Topiramate (Topamax) 100 mg BID 05/26/21 14:00 06/04/21 08:26 100 MG Trazodone HCl (Desyrel) 50 mg QHS 05/26/21 21:00 06/03/21 21:40 50 MG Vancomycin HCl (Vanco Per Pharmacy) 1 each PRN DAILY PRN 05/26/21 03:15 06/02/21 11:24 1 EACH Vancomycin HCl (Vancomycin Random Level) 1 each 1X ONCE 06/02/21 06:00 06/02/21 06:01 DC 06/02/21 06:00 1 EACH Vancomycin HCl 1.75 gm/Sodium Chloride 500 ml @ 250 mls/hr 1X ONCE 05/26/21 06:00 05/26/21 07:59 DC 05/26/21 05:47 250 MLS/HR Vancomycin HCl 500 mg/Sodium Chloride 100 ml @ 100 mls/hr QMWF 06/04/21 16:00 Vitamin D (Vitamin D3) 1,000 unit DAILY 05/26/21 14:00 06/04/21 08:27 1,000 UNIT Lab Laboratory Tests Test 06/03/21 11:47 06/03/21 16:26 06/03/21 20:24 06/04/21 07:26 Glucose (Fingerstick) 163 mg/dL (70-99) 160 mg/dL (70-99) 173 mg/dL (70-99) 162 mg/dL (70-99) Results All relevant outside records, renal labs, imaging studies, telemetry/EKG's were reviewed. Justicifation of Admission Dx: Justifications for Admission: Justification of Admission Dx: N/A JUSTIN LARKIN MD Jun 04, 2021 10:53
--- NOTE | 2021-06-04 11:02 | NUR ---
SW following. Discussed with RN, plans for procedure on Monday and then decision about BKA. COVID-19 positive. SW will continue to follow.
[2021-06-04 11:38] LABS: CALCIUM 7.6 mg/dL (8.5-10.1); CREATININE 3.4 mg/dL (0.7-1.3); POTASSIUM 3.5 mmol/L (3.5-5.1)
--- NOTE | 2021-06-04 12:06 | NUR ---
patient's lunchtime blood sugar 383, dr salazar case, called back, RN received orders to administer 13 scheduled units humalog plus 9 units per sliding scale and he will adjust further orders for lantus
[2021-06-04] MEDS: VANCOMYCIN PER PHARMACY MC PRN (13:43)
[2021-06-04 15:00] VITALS: BP 127/52
[2021-06-04] MEDS: VANCOMYCIN 500 MG in IV NORMAL SALINE 100ML 100 ML IV SCH (16:35)
[2021-06-04 19:00] VITALS: BP 118/77
--- NOTE | 2021-06-04 21:19 | NUR ---
daikins solution not administered, pt not attached to wound vac
[2021-06-04] MEDS: MIRTAZAPINE 15 MG TABLET PO SCH (21:21)
[2021-06-04] MEDS: traZODone 50 MG TABLET. PO SCH (21:21)
[2021-06-04] MEDS: DULoxetine HCL 30 MG CAPSULE.DR PO SCH (21:21)
[2021-06-04] MEDS: EPOETIN ALFA-EPBX for ESRD 20,000 UNIT/ML VIAL. SQ SCH (21:23)
[2021-06-04 23:00] VITALS: BP 129/76
[2021-06-05 03:00] VITALS: BP 134/76
[2021-06-05] MEDS: PANTOPRAZOLE 40 MG TABLET.DR. PO SCH (06:38)
[2021-06-05 07:00] VITALS: BP 144/117
[2021-06-05] MEDS: INSULIN LISPRO 300 UNITS/3 ML VIAL. SQ SCH ×3 (08:35→17:38)
[2021-06-05] MEDS: LACTOBACILLUS RHAMNOSUS GG 1 CAPSULE. PO SCH ×2 (08:37→22:49)
[2021-06-05] MEDS: MEROPENEM 500 MG in IV NORMAL SALINE 50ML 50 ML IV SCH (08:37)
[2021-06-05] MEDS: ASPIRIN ENTERIC COATED 81 MG TABLET.DR. PO SCH (08:37)
[2021-06-05] MEDS: ATORVASTATIN CALCIUM 10 MG TABLET. PO SCH (08:37)
[2021-06-05] MEDS: CHOLECALCIFEROL (VITAMIN D3) 1,000 UNIT TABLET PO SCH (08:38)
[2021-06-05] MEDS: CYANOCOBALAMIN (VITAMIN B-12) 1,000 MCG TABLET. PO SCH (08:38)
[2021-06-05] MEDS: EZETIMIBE 10 MG TABLET. PO SCH (08:38)
[2021-06-05] MEDS: levETIRAcetam 500 MG TABLET PO SCH ×2 (08:38→22:49)
[2021-06-05] MEDS: FLUCONAZOLE 100 MG TABLET. PO SCH (08:38)
[2021-06-05] MEDS: SODIUM HYPOCHLORITE 0.125% 473 ML BOTTLE. TP SCH ×2 (09:00→21:00)
[2021-06-05] MEDS: PREGABALIN 75 MG CAPSULE PO SCH ×2 (09:50→22:48)
[2021-06-05] MEDS: TOPIRAMATE 100 MG TABLET. PO SCH ×2 (09:50→22:48)
[2021-06-05] MEDS: METOPROLOL SUCC 24HR ER 50 MG TAB.ER.24H. PO SCH (09:51)
[2021-06-05 10:59] LABS: HEMATOCRIT 33.5 % (39.0-53.0); HEMOGLOBIN 10.1 g/dL (13.0-17.5)
[2021-06-05 11:00] VITALS: BP 89/56
--- NOTE | 2021-06-05 11:27 | PDOC ---
Infectious Disease Note Subjective: Subjective Patient without new complaints On room air Discussed with RN Vital Signs: Vital Signs Vital Signs Date Time Temp Pulse Resp B/P (MAP) Pulse Ox O2 Delivery O2 Flow Rate FiO2 06/05/21 11:00 97.7 83 18 89/56 (67) 96 Room Air 97.7 Physical Exam: PHYSICAL EXAM GENERAL: Alert awake oriented x3 male in no acute distress on room air HEENT: Both pupils are round and reacting. No conjunctival lesion. No lesion in the mouth. NECK: Supple. No JVP, no lymphadenopathy. LUNGS: Clear. HEART: S1, S2, regular. ABDOMEN: Soft, nontender. No organomegaly. EXTREMITIES: There are multiple superficial wounds on to the extremities. Muscle wasting present. Left foot reveals dehiscence of the amputation site. Surrounding Black eschar around the wound noted. Unhealthy necrotic base. Large area involved with gangrenous eschar on the dorsum of the foot. NEUROLOGIC: The patient is awake, try to say something, mumbles few words, occasional appropriate nodding. Medications: Inpatient Meds: Medications reviewed. Labs: Lab Laboratory Tests Test 06/04/21 11:38 06/04/21 15:53 06/04/21 20:41 06/05/21 07:58 Glucose (Fingerstick) 117 mg/dL (70-99) 154 mg/dL (70-99) 141 mg/dL (70-99) 172 mg/dL (70-99) Test 06/05/21 10:35 06/05/21 11:09 Hemoglobin 10.1 g/dL (13.0-17.5) Hematocrit 33.5 % (39.0-53.0) Glucose (Fingerstick) 161 mg/dL (70-99) Micro Micro RUN DATE: 05/29/21 [facility] LAB *LIVE* PAGE 1 RUN TIME: 1127 Specimen Inquiry PATIENT: FER CHAUDHARY ACCT: [id number] LOC: [address] [place] [address] U: [id number] AGE/SX: 55/M ROOM: 582 RE05/26/[address]: KAHLIL WADE MD : 1965 BED: 1 D IS: STATUS: ADM IN TLOC: SPEC #: [id number] CHERIE: 05/26/21 STATUS: RES REQ #: [id number] RECD: 05/27/[address]: KAHLIL WADE MD SOURCE: FOOT ENTR: 05/27/[address]: MACHELLE COPE MD SPDESC: NUBIA COLINDRES MD, ZHIPENG DPTamika ORDERED: CHIDI/SANDRA/MARICEL COMMENTS: LEFT FOOT SWAB Procedure Result GRAM STAIN Final Final GRAM NEGATIVE RODS:MANY SQUAMOUS EPI CELL:NONE SEEN PMN (WBCs):RARE Unless otherwise specified, Testing Performed by: [address] [address] For Inquires, the Physician may contact the Microbiology department at [phone] ANAEROBIC-AEROBIC CULTURE Preliminary Preliminary MANY [ENTEROBACTER CLOACAE COMPLEX] on 05/28/21 at 1127 FEW [MARY ALBICANS] on 05/28/21 at 1127 ENTEROBACTER CLOACAE COMPLEX MARY ALBICANS ANTIMICROBIAL SUSCEPTIBILITY Preliminary Comment NEG JANI 56 ENTEROBACTER CLOACAE COMPLEX ANTIBIOTIC RESULT INTERPRETATION AMPICILLIN/SULBACTAM >16/8 R AMIKACIN <=16 S AMPICILLIN >16 R AMOXICILLIN/K CLAVULANATE >16/8 R AZTREONAM >16 R CEFTRIAXONE >32 R CEFTAZIDIME <=1 S CEFOTAXIME <=2 S CEFOXITIN <=8 R* CEFAZOLIN >16 R CIPROFLOXACIN <=0.25 S CEFEPIME <=2 S CEFUROXIME >16 R ERTAPENEM <=0.5 S RUN DATE: 05/29/21 [facility] LAB *LIVE* PAGE 2 RUN TIME: 112 Specimen Inquiry SPEC: [id number] PATIENT: FER CHAUDHARY [id number] (Continued) Procedure Result CONTINUED ON NEXT PAGE -------- ---- RUN DATE: 05/29/21 [facility] *LIVE* PAGE 3 RUN TIME: 1127 Specimen Inquiry SPEC: [id number] PATIENT: FER CHAUDHARY [id number] (Continued) Procedure Result ANTIMICROBIAL SUSCEPTIBILITY Preliminary (continued) GENTAMICIN <=2 S LEVOFLOXACIN <=0.5 S MEROPENEM <=1 S PIPERACILLIN/TAZOBACTAM >64 R TRIMETHOPRIM/SULFAMETHOXAZOLE <=0.5/9.5 S TETRACYCLINE <=4 S TOBRAMYCIN <=2 S Unless otherwise specified, Testing Performed by: [address] [address] For Inquires, the Physician may contact the Microbiology department at [phone] Objective: Assessment: 1. Encephalopathy. 2. COVID-19 positive. 3. Fever. Resolved 4. 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 Patient is refusing left BKA Cultures positive for Enterobacter and Mary ESR 54, CRP 149. 5. End-stage renal disease, on hemodialysis. 6. Seizure disorder. 7. Coronary artery disease. 8. Hypertension. 9. Diabetes. Plan: Plan of Care Continue IV Vanc,merrem.fluconazole for now Patient is awaiting angiogram and BKA early next week Continue local wound care as directed Continue supportive care Discussed with JUAN ALBERTO POSADAS MD Jun 05, 2021 11:27
--- NOTE | 2021-06-05 14:44 | PDOC ---
Provider Note Date of Service: DATE: 06/05/21 TIME: 14:42 Provider Note Subjective: The patient denies any specific new cardiovascular issues. No nursing concerns. Medications reviewed: Toprol-XL 50 Atorvastatin Aspirin Objective vital signs stable Physical Exam HEENT: Neck Supple W Full Motion Chest: Symmetric LUNGS: Other (diminished bases ) Heart: RRR (atrial flutter) Abdomen: Soft N/T Extremities: Other (left TMA- drsg intact ) Neurology: alert, oriented, follow commands Other Exams discussed with RN no changes Assessment Assessment 1. COVID +: now afebrile: 2. Acute encephalopathy: resolved 3. ESRD on HD 4. PAFIB: rate controlled in atrial flutter. 5. CAD: s/p CABG. unclear if any recent w/u, clinically stable 6. HTN; controlled overall 7. DM2 8. S/P L TMA with dehiscence. L BKA recommended per vascular. Pt has agreed to LBKA. 9. Anemia: s/p transfusion. hgb stable. 10. Sepsis 11. Hx of mild CM: past EF at 45%. Limited echo with EF 30-35% 12. Mild to moderate , moderate to severe TR. Estimated PAP 60 mmHg. 13. Severe LLE PAD: diffuse disease with probable high-grade left common femoral and superficial femoral arterial disease Recommendations: 1. I had a long discussion with the patient today about the risks and benefits of angiogram to help with wound healing after his below-knee amputation. He is agreeable. We have this scheduled for Monday tentatively. Thank you for this consultation. Continue aspirin therapy and after his angiogram as well as his amputation could consider initiation of anticoagulation for his atrial fibrillation if his anemia remains improved. Justifications for Admission Other Justification CARRIE MCCLAIN MD Jun 05, 2021 14:44
[2021-06-05 15:00] VITALS: BP 102/62
--- NOTE | 2021-06-05 15:18 | NUR ---
Assumed pt care at this time. Pt in bed sleeping call light within reach.
[2021-06-05] MEDS: VANCOMYCIN PER PHARMACY MC PRN (16:02)
--- NOTE | 2021-06-05 19:25 | PN ---
DATE: 06/05/2021 SUBJECTIVE: The patient is resting, slightly propped up in bed, awake, and alert, denied any complaint. He apparently refused lab draw this morning. PHYSICAL EXAMINATION: GENERAL: On examining him, he was pale, but not jaundiced or cyanosed. No lymphadenopathy, no thyromegaly, no jugular venous distention. No lower limb edema. VITAL SIGNS: His heart rate was 96, blood pressure was 144/117, his temperature was 97.7, respiratory rate was 18 and oxygen saturation was 94% on room air. The rest of clinical exam is stable, has not really changed. EXTREMITIES: He has left forefoot amputation with dehisced infected wound. His intake over the last 24 hours was 480, no output was recorded. LABORATORY DATA: No lab work available. His most recent H and H was on the and was 9.9 and 32.4. His chemistry as of yesterday showed a serum sodium 138, potassium 3.5, chloride 100, bicarbonate 28, anion gap of 10, BUN 12, and creatinine 3.4. His blood sugar seems to be well within acceptable range. ASSESSMENT: 1. The patient is status post left transmetatarsal amputation with dehiscence and infection of the wound, a large eschar on the dorsum of the left foot. He was seen by the cooker sulfite as well as the vascular surgeon, both recommended left below-knee amputation and apparently the patient has finally agreed and signed a consent for left below-knee amputation. 2. He has arterial Doppler ultrasound, which showed significant stenosis for which he is scheduled for an arteriogram on Monday followed by left below-knee amputation. 3. He has an asymptomatic COVID-19 infection. 4. The patient has end-stage renal disease, on hemodialysis Monday, Monday, and Monday. 5. Type 1 diabetes mellitus with triopathy. 6. Atrial fibrillation, rate controlled, not anticoagulated. 7. Coronary artery disease, status post coronary artery bypass graft surgery. 8. Ischemic cardiomyopathy. 9. Hypertension. 10. Cerebrovascular accident. 11. Peripheral neuropathy. 12. History of chronic subdural hematoma, it apparently has resolved. 13. Seizure disorder. 14. Peripheral arterial disease, status post left transmetatarsal amputation. PLAN: To continue with antibiotic as recommended by Infectious Disease specialist. Continue with hemodialysis as per Nephrology team. Continue with wound care. Continue to monitor his blood sugar and adjust insulin as needed. SHANNA DR: Tyler TID: [id number]
[2021-06-05 21:32] VITALS: BP 93/63
[2021-06-05] MEDS: MIRTAZAPINE 15 MG TABLET PO SCH (22:48)
[2021-06-05] MEDS: DULoxetine HCL 30 MG CAPSULE.DR PO SCH (22:49)
[2021-06-05] MEDS: traZODone 50 MG TABLET. PO SCH (22:49)
[2021-06-05 23:00] VITALS: BP 127/76
[2021-06-06 03:00] VITALS: BP 119/53
[2021-06-06 07:00] VITALS: BP 148/81
[2021-06-06] MEDS: PANTOPRAZOLE 40 MG TABLET.DR. PO SCH (08:15)
[2021-06-06] MEDS: INSULIN LISPRO 300 UNITS/3 ML VIAL. SQ SCH ×3 (08:17→16:56)
[2021-06-06] MEDS: EZETIMIBE 10 MG TABLET. PO SCH (08:18)
[2021-06-06] MEDS: CHOLECALCIFEROL (VITAMIN D3) 1,000 UNIT TABLET PO SCH (08:18)
[2021-06-06] MEDS: CYANOCOBALAMIN (VITAMIN B-12) 1,000 MCG TABLET. PO SCH (08:18)
[2021-06-06] MEDS: ATORVASTATIN CALCIUM 10 MG TABLET. PO SCH (08:18)
[2021-06-06] MEDS: levETIRAcetam 500 MG TABLET PO SCH ×2 (08:19→23:48)
[2021-06-06] MEDS: TOPIRAMATE 100 MG TABLET. PO SCH ×2 (08:19→23:47)
[2021-06-06] MEDS: FLUCONAZOLE 100 MG TABLET. PO SCH (08:19)
[2021-06-06] MEDS: MEROPENEM 500 MG in IV NORMAL SALINE 50ML 50 ML IV SCH (08:19)
[2021-06-06] MEDS: PREGABALIN 75 MG CAPSULE PO SCH ×2 (08:19→23:47)
[2021-06-06] MEDS: SODIUM HYPOCHLORITE 0.125% 473 ML BOTTLE. TP SCH ×2 (09:00→19:53)
[2021-06-06] MEDS: LACTOBACILLUS RHAMNOSUS GG 1 CAPSULE. PO SCH ×2 (09:45→23:47)
[2021-06-06] MEDS: ASPIRIN ENTERIC COATED 81 MG TABLET.DR. PO SCH (09:45)
[2021-06-06] MEDS: METOPROLOL SUCC 24HR ER 50 MG TAB.ER.24H. PO SCH (09:46)
--- NOTE | 2021-06-06 09:46 | PDOC ---
Infectious Disease Note Subjective: Subjective Patient without new complaints On room air Discussed with RN Vital Signs: Vital Signs Vital Signs Date Time Temp Pulse Resp B/P (MAP) Pulse Ox O2 Delivery O2 Flow Rate FiO2 06/06/21 08:26 Room Air 06/06/21 07:00 97.4 80 17 148/81 (103) 94 97.4 Physical Exam: PHYSICAL EXAM GENERAL: Alert awake oriented x3 male in no acute distress on room air HEENT: Both pupils are round and reacting. No conjunctival lesion. No lesion in the mouth. NECK: Supple. No JVP, no lymphadenopathy. LUNGS: Clear. HEART: S1, S2, regular. ABDOMEN: Soft, nontender. No organomegaly. EXTREMITIES: There are multiple superficial wounds on to the extremities. Muscle wasting present. Left foot reveals dehiscence of the amputation site. Surrounding Black eschar around the wound noted. Unhealthy necrotic base. Large area involved with gangrenous eschar on the dorsum of the foot. NEUROLOGIC: The patient is awake, try to say something, mumbles few words, occasional appropriate nodding. Medications: Inpatient Meds: Medications reviewed. Labs: Lab Laboratory Tests Test 06/05/21 10:35 06/05/21 11:09 06/05/21 16:53 06/05/21 19:34 Hemoglobin 10.1 g/dL (13.0-17.5) Hematocrit 33.5 % (39.0-53.0) Glucose (Fingerstick) 161 mg/dL (70-99) 215 mg/dL (70-99) 177 mg/dL (70-99) Test 06/05/21 23:16 Glucose (Fingerstick) 178 mg/dL (70-99) Micro Micro RUN DATE: 05/29/21 [facility] LAB *LIVE* PAGE 1 RUN TIME: 1127 Specimen Inquiry PATIENT: FER CHAUDHARY ACCT: [id number] LOC: [address] [place] [address] U: [id number] AGE/SX: 55/M ROOM: 582 RE05/26/[address]: KAHLIL WADE MD : 1965 BED: 1 DIS : STATUS: ADM IN TLOC: SPEC #: [id number] CHERIE: 05/26/21 STATUS: RES REQ #: [id number] RECD: 05/27/[address]: KAHLIL WADE MD SOURCE: FOOT ENTR: 05/27/[address] [facility] [address]: MACHELLE COPE MD SPDESC: NUBIA COLINDRES MD, ZHIPENG DPM ORDERED: CHIDI/SANDRA/MARICEL COMMENTS: LEFT FOOT SWAB Procedure Result GRAM STAIN Final Final GRAM NEGATIVE RODS:MANY SQUAMOUS EPI CELL:NONE SEEN PMN (WBCs):RARE Unless otherwise specified, Testing Performed by: [address] [address] For Inquires, the Physician may contact the Microbiology department at [phone] ANAEROBIC-AEROBIC CULTURE Preliminary Preliminary MANY [ENTEROBACTER CLOACAE COMPLEX] on 05/28/21 at 1127 FEW [MARY ALBICANS] on 05/28/21 at 1127 ENTEROBACTER CLOACAE COMPLEX MARY ALBICANS ANTIMICROBIAL SUSCEPTIBILITY Preliminary Comment NEG JANI 56 ENTEROBACTER CLOACAE COMPLEX ANTIBIOTIC RESULT INTERPRETATION AMPICILLIN/SULBACTAM >16/8 R AMIKACIN <=16 S AMPICILLIN >16 R AMOXICILLIN/K CLAVULANATE >16/8 R AZTREONAM >16 R CEFTRIAXONE >32 R CEFTAZIDIME <=1 S CEFOTAXIME <=2 S CEFOXITIN <=8 R* CEFAZOLIN >16 R CIPROFLOXACIN <=0.25 S CEFEPIME <=2 S CEFUROXIME >16 R ERTAPENEM <=0.5 S RUN DATE: 05/29/21 [facility] LAB *LIVE* PAGE 2 RUN TIME: 112 Specimen Inquiry SPEC: [id number] PATIENT: FER CHAUDHARY [id number] (Continued) Procedure Result CONTINUED ON NEXT PAGE -- RUN DATE: 05/29/21 [facility] LAB *LIVE* PAGE 3 RUN TIME: 1127 Specimen Inquiry SPEC: [id number] PATIENT: FER CHAUDHARY [id number] (Continued) Procedure Result ANTIMICROBIAL SUSCEPTIBILITY Preliminary (continued) GENTAMICIN <=2 S LEVOFLOXACIN <=0.5 S MEROPENEM <=1 S PIPERACILLIN/TAZOBACTAM >64 R TRIMETHOPRIM/SULFAMETHOXAZOLE <=0.5/9.5 S TETRACYCLINE <=4 S TOBRAMYCIN <=2 S Unless otherwise specified, Testing Performed by: [address] [address] For Inquires, the Physician may contact the Microbiology department at [phone] Objective: Assessment: 1. Encephalopathy. 2. COVID-19 positive. 3. Fever. Resolved 4. 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 Patient is refusing left BKA Cultures positive for Enterobacter and Mary ESR 54, CRP 149. 5. End-stage renal disease, on hemodialysis. 6. Seizure disorder. 7. Coronary artery disease. 8. Hypertension. 9. Diabetes. Plan: Plan of Care Continue IV Vanc,merrem.fluconazole Patient is awaiting angiogram and left BKA Continue local wound care as directed Continue supportive care JUAN ALBERTO COPE MD Jun 06, 2021 09:46
[2021-06-06 11:00] VITALS: BP 130/86
--- NOTE | 2021-06-06 11:13 | PN ---
DATE: 06/06/2021 SUBJECTIVE: The patient is resting, slightly propped up in bed, in no apparent distress, sleepy, but arousable. When I questioned him, he denied any complaints. Nursing staff did not voice any concerns except that his level of consciousness is of variable. He was awake and alert this morning and has eaten his breakfast. When I saw him, he was somewhat sleepy, but arousable. His blood sugar this morning was 164. PHYSICAL EXAMINATION: GENERAL: When I examined him, he was pale, but not jaundiced, cyanosed, no lymphadenopathy, no thyromegaly, no jugular venous distention. No limb edema. VITAL SIGNS: His heart rate was 80, blood pressure was 148/81, temperature was 97.4, respiratory rate was 17, and oxygen saturation was 94% on room air. HEAD, EYES, EARS, NOSE AND THROAT: Normocephalic, atraumatic. NECK: Supple. HEART: Normal first and second heart sounds, no gallop or murmur. CHEST: Clear to auscultation, no crepitation or rhonchi. ABDOMEN: Scaphoid, soft, nontender. NEUROLOGIC: He was sleepy, but arousable. All his cranial nerves are intact. He moves upper extremities without difficulty. He has left transmetatarsal amputation with a history of an infected wound. LABORATORY DATA: His intake was 650, output was incompletely recorded. His blood sugar seems to be reasonably controlled. His most recent H and H as of yesterday was 10 and 33. ASSESSMENT: 1. The patient is status post left transmetatarsal amputation with dehiscence and infection of the wound and a large eschar on the dorsum of the left foot. He was seen by the datawarehouse developer as well as the vascular surgeon and both recommended left below-knee amputation and apparently, the patient has finally agreed and signed a consent for left below-knee amputation. 2. The patient has had arterial Doppler ultrasound, which has shown significant stenosis; therefore, he was scheduled for an angiogram tomorrow with revascularization if deemed necessary to optimize the blood supply before his scheduled left below-knee amputation. 3. He has an asymptomatic COVID-19 infection. 4. The patient has end-stage renal disease, on hemodialysis on Monday, Monday, Monday. 5. Type 1 diabetes mellitus with triopathy. 6. Atrial fibrillation, rate controlled, not anticoagulated. 7. Coronary artery disease, status post coronary artery bypass graft surgery. 8. Ischemic cardiomyopathy. 9. Hypertension. 10. Cerebrovascular accident. 11. Peripheral neuropathy. 12. History of chronic subdural hematoma that appears to have resolved. 13. Seizure disorder. 14. Peripheral arterial disease, status post transmetatarsal amputation. PLAN: It is obvious to continue antibiotic as recommended by infectious disease specialist. Continue with hemodialysis as per chemical dependency therapist. Continue with wound care. Continue to monitor his blood sugar and adjust insulin as needed. MARIANA DR: Tyler TID: [id number]
[2021-06-06 11:54] LABS: ALBUMIN 2.2 g/dL (3.4-5.0); ALBUMIN/GLOBULIN RATIO 0.5 (1.0-1.7); CALCIUM 8.3 mg/dL (8.5-10.1); CREATININE 6.4 mg/dL (0.7-1.3); GFR 9.1; TOTAL BILIRUBIN 0.8 mg/dL (0.2-1.0)
[2021-06-06 15:00] VITALS: BP 110/64
--- NOTE | 2021-06-06 16:06 | PDOC ---
Provider Note Date of Service: DATE: 06/06/21 TIME: 15:50 Provider Note Subjective: The patient denies any specific new cardiovascular issues. No nursing concerns. Medications reviewed: Toprol-XL 50 Atorvastatin Aspirin Objective vital signs stable Physical Exam HEENT: Neck Supple W Full Motion Chest: Symmetric LUNGS: Other (diminished bases ) Heart: RRR (atrial flutter) Abdomen: Soft N/T Extremities: Other (left TMA- drsg intact ) Neurology: alert, oriented, follow commands Other Exams discussed with RN no changes Assessment Assessment 1. COVID +: now afebrile: 2. Acute encephalopathy: resolved 3. ESRD on HD 4. PAFIB: rate controlled in atrial flutter. 5. CAD: s/p CABG. unclear if any recent w/u, clinically stable 6. HTN; controlled overall 7. DM2 8. S/P L TMA with dehiscence. L BKA recommended per vascular. Pt has agreed to LBKA. 9. Anemia: s/p transfusion. hgb stable. 10. Sepsis 11. Hx of mild CM: past EF at 45%. Limited echo with EF 30-35% 12. Mild to moderate , moderate to severe TR. Estimated PAP 60 mmHg. 13. Severe LLE PAD: diffuse disease with probable high-grade left common femoral and superficial femoral arterial disease Plan: 1. We will plan for a angiogram tomorrow and then subsequent amputation per vascular surgery Justifications for Admission Other Justification CARRIE MCCLAIN MD Jun 06, 2021 16:05
[2021-06-06 19:38] VITALS: BP 78/48
[2021-06-06 23:23] VITALS: BP 112/72
[2021-06-06] MEDS: traZODone 50 MG TABLET. PO SCH (23:47)
[2021-06-06] MEDS: MIRTAZAPINE 15 MG TABLET PO SCH (23:47)
[2021-06-06] MEDS: DULoxetine HCL 30 MG CAPSULE.DR PO SCH (23:47)
[2021-06-07] VITALS (7 sets, daily range): BP systolic 92–144; BP diastolic 52–85
[2021-06-07] MEDS: ATORVASTATIN CALCIUM 10 MG TABLET. PO SCH (07:26)
[2021-06-07] MEDS: PREGABALIN 75 MG CAPSULE PO SCH ×2 (07:27→21:21)
[2021-06-07] MEDS: CHOLECALCIFEROL (VITAMIN D3) 1,000 UNIT TABLET PO SCH (07:27)
[2021-06-07] MEDS: CYANOCOBALAMIN (VITAMIN B-12) 1,000 MCG TABLET. PO SCH (07:27)
[2021-06-07] MEDS: TOPIRAMATE 100 MG TABLET. PO SCH ×2 (07:27→21:21)
[2021-06-07] MEDS: EZETIMIBE 10 MG TABLET. PO SCH (07:27)
[2021-06-07] MEDS: PANTOPRAZOLE 40 MG TABLET.DR. PO SCH (07:30)
[2021-06-07] MEDS: FLUCONAZOLE 100 MG TABLET. PO SCH (07:34)
[2021-06-07] MEDS: ASPIRIN ENTERIC COATED 81 MG TABLET.DR. PO SCH (07:34)
[2021-06-07] MEDS: LACTOBACILLUS RHAMNOSUS GG 1 CAPSULE. PO SCH ×2 (07:35→21:21)
[2021-06-07] MEDS: SODIUM HYPOCHLORITE 0.125% 473 ML BOTTLE. TP SCH ×2 (07:35→21:00)
[2021-06-07 07:51] LABS: BASO # 0.2 x10^3/uL (0.0-0.2); BASO % 2 % (0-3); EOS # 0.5 x10^3/uL (0.0-0.7); EOS % 5 % (0-3); HEMATOCRIT 34.4 % (39.0-53.0); HEMOGLOBIN 10.2 g/dL (13.0-17.5); LYMPH # 1.7 x10^3/uL (1.0-4.8); LYMPH % 17 % (24-48); MEAN CORPUSCULAR HEMOGLOBIN 27 pg (25-35); MEAN CORPUSCULAR HGB CONC 30 g/dL (31-37); MONO # 0.7 x10^3/uL (0.0-1.1); MONO % 7 % (0-9); NEUT % 69 % (31-73); PLATELET COUNT 221 x10^3/uL (140-400); RED BLOOD COUNT 3.76 x10^6/uL (4.30-5.70); RED CELL DISTRIBUTION WIDTH 29.5 % (11.5-14.5); WHITE BLOOD COUNT 10.2 x10^3/uL (4.0-11.0)
[2021-06-07 07:56] LABS: MEAN CORPUSCULAR VOLUME 91 fL (79-100)
[2021-06-07] MEDS: INSULIN LISPRO 300 UNITS/3 ML VIAL. SQ SCH ×3 (08:00→17:00)
[2021-06-07] MEDS: MEROPENEM 500 MG in IV NORMAL SALINE 50ML 50 ML IV SCH (08:07)
[2021-06-07] MEDS: METOPROLOL SUCC 24HR ER 50 MG TAB.ER.24H. PO SCH ×2 (08:08→09:00)
[2021-06-07] MEDS: levETIRAcetam 500 MG TABLET PO SCH ×3 (08:28→21:21)
[2021-06-07 08:31] LABS: CALCIUM 8.9 mg/dL (8.5-10.1); GFR 8.2; PHOSPHORUS 5.4 mg/dL (2.6-4.7); POTASSIUM 4.7 mmol/L (3.5-5.1)
--- NOTE | 2021-06-07 08:58 | PDOC ---
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 History of psychogenic nonepileptic seizures, still taking levetiracetam Anemia, end-stage renal disease on dialysis, left foot infection, COVID-19 infection, probable sepsis, malnutrition hypotension, diabetes with neuropathy Note vascular recommendations for possible left below the knee amputation, to which the patient has finally agreed Plan Continue to treat medical issues No additional neurological investigations required Neurology will follow at intervals Subjective No complaints Objective Vital Signs Date Time Temp Pulse Resp B/P (MAP) Pulse Ox O2 Delivery O2 Flow Rate FiO2 06/07/21 08:08 79 136/85 06/07/21 07:15 98.2 18 100 Room Air 98.2 Intake and Output 06/07/21 07:00 Intake Total 250 ml Balance 250 ml Intake Oral 200 ml IV Total 50 ml # Voids 3 PHYSICAL EXAM Alert. Oriented to person PERRL. EOMI. CN: no focal findings. Muscle tone: normal. Muscle strength: 3/5 DTR: 0+ Plantar reflex: Flexor Gait: not examined in bed. Sensory exam: Stocking loss. No cerebellar signs elicited. Review of Relevant I have reviewed the following items yifan (where applicable) has been applied. Labs Laboratory Tests Test 06/05/21 10:35 06/05/21 11:09 06/05/21 16:53 06/05/21 19:34 Hemoglobin 10.1 g/dL (13.0-17.5) Hematocrit 33.5 % (39.0-53.0) Glucose (Fingerstick) 161 mg/dL (70-99) 215 mg/dL (70-99) 177 mg/dL (70-99) Test 06/05/21 23:16 06/06/21 08:13 06/06/21 11:29 06/06/21 11:50 Glucose (Fingerstick) 178 mg/dL (70-99) 164 mg/dL (70-99) 139 mg/dL (70-99) Sodium Level 146 mmol/L (136-145) Potassium Level 4.0 mmol/L (3.5-5.1) Chloride Level 105 mmol/L (98-107) Carbon Dioxide Level 28 mmol/L (21-32) Anion Gap 13 (6-14) Blood Urea Nitrogen 28 mg/dL (8-26) Creatinine 6.4 mg/dL (0.7-1.3) Estimated GFR (Cockcroft-Gault) 9.1 BUN/Creatinine Ratio 4 (6-20) Glucose Level 165 mg/dL (70-99) Calcium Level 8.3 mg/dL (8.5-10.1) Total Bilirubin 0.8 mg/dL (0.2-1.0) Aspartate Amino Transf (AST/SGOT) 22 U/L (15-37) Alanine Aminotransferase (ALT/SGPT) 32 U/L (16-63) Alkaline Phosphatase 96 U/L (46-116) Total Protein 7.0 g/dL (6.4-8.2) Albumin 2.2 g/dL (3.4-5.0) Albumin/Globulin Ratio 0.5 (1.0-1.7) Test 06/06/21 16:29 06/06/21 20:06 06/07/21 06:40 06/07/21 06:55 Glucose (Fingerstick) 201 mg/dL (70-99) 192 mg/dL (70-99) 193 mg/dL (70-99) White Blood Count 10.2 x10^3/uL (4.0-11.0) Red Blood Count 3.76 x10^6/uL (4.30-5.70) Hemoglobin 10.2 g/dL (13.0-17.5) Hematocrit 34.4 % (39.0-53.0) Mean Corpuscular Volume 91 fL (79-100) Mean Corpuscular Hemoglobin 27 pg (25-35) Mean Corpuscular Hemoglobin Concent 30 g/dL (31-37) Red Cell Distribution Width 29.5 % (11.5-14.5) Platelet Count 221 x10^3/uL (140-400) Neutrophils (%) (Auto) 69 % (31-73) Lymphocytes (%) (Auto) 17 % (24-48) Monocytes (%) (Auto) 7 % (0-9) Eosinophils (%) (Auto) 5 % (0-3) Basophils (%) (Auto) 2 % (0-3) Neutrophils # (Auto) 7.0 x10^3/uL (1.8-7.7) Lymphocytes # (Auto) 1.7 x10^3/uL (1.0-4.8) Monocytes # (Auto) 0.7 x10^3/uL (0.0-1.1) Eosinophils # (Auto) 0.5 x10^3/uL (0.0-0.7) Basophils # (Auto) 0.2 x10^3/uL (0.0-0.2) Sodium Level 139 mmol/L (136-145) Potassium Level 4.7 mmol/L (3.5-5.1) Chloride Level 102 mmol/L (98-107) Carbon Dioxide Level 20 mmol/L (21-32) Anion Gap 17 (6-14) Blood Urea Nitrogen 34 mg/dL (8-26) Creatinine 7.0 mg/dL (0.7-1.3) Estimated GFR (Cockcroft-Gault) 8.2 Glucose Level 216 mg/dL (70-99) Calcium Level 8.9 mg/dL (8.5-10.1) Phosphorus Level 5.4 mg/dL (2.6-4.7) Laboratory Tests Test 06/06/21 11:29 06/06/21 11:50 06/06/21 16:29 06/06/21 20:06 Sodium Level 146 mmol/L (136-145) Potassium Level 4.0 mmol/L (3.5-5.1) Chloride Level 105 mmol/L (98-107) Carbon Dioxide Level 28 mmol/L (21-32) Anion Gap 13 (6-14) Blood Urea Nitrogen 28 mg/dL (8-26) Creatinine 6.4 mg/dL (0.7-1.3) Estimated GFR (Cockcroft-Gault) 9.1 BUN/Creatinine Ratio 4 (6-20) Glucose Level 165 mg/dL (70-99) Calcium Level 8.3 mg/dL (8.5-10.1) Total Bilirubin 0.8 mg/dL (0.2-1.0) Aspartate Amino Transf (AST/SGOT) 22 U/L (15-37) Alanine Aminotransferase (ALT/SGPT) 32 U/L (16-63) Alkaline Phosphatase 96 U/L (46-116) Total Protein 7.0 g/dL (6.4-8.2) Albumin 2.2 g/dL (3.4-5.0) Albumin/Globulin Ratio 0.5 (1.0-1.7) Glucose (Fingerstick) 139 mg/dL (70-99) 201 mg/dL (70-99) 192 mg/dL (70-99) Test 06/07/21 06:40 06/07/21 06:55 White Blood Count 10.2 x10^3/uL (4.0-11.0) Red Blood Count 3.76 x10^6/uL (4.30-5.70) Hemoglobin 10.2 g/dL (13.0-17.5) Hematocrit 34.4 % (39.0-53.0) Mean Corpuscular Volume 91 fL (79-100) Mean Corpuscular Hemoglobin 27 pg (25-35) Mean Corpuscular Hemoglobin Concent 30 g/dL (31-37) Red Cell Distribution Width 29.5 % (11.5-14.5) Platelet Count 221 x10^3/uL (140-400) Neutrophils (%) (Auto) 69 % (31-73) Lymphocytes (%) (Auto) 17 % (24-48) Monocytes (%) (Auto) 7 % (0-9) Eosinophils (%) (Auto) 5 % (0-3) Basophils (%) (Auto) 2 % (0-3) Neutrophils # (Auto) 7.0 x10^3/uL (1.8-7.7) Lymphocytes # (Auto) 1.7 x10^3/uL (1.0-4.8) Monocytes # (Auto) 0.7 x10^3/uL (0.0-1.1) Eosinophils # (Auto) 0.5 x10^3/uL (0.0-0.7) Basophils # (Auto) 0.2 x10^3/uL (0.0-0.2) Sodium Level 139 mmol/L (136-145) Potassium Level 4.7 mmol/L (3.5-5.1) Chloride Level 102 mmol/L (98-107) Carbon Dioxide Level 20 mmol/L (21-32) Anion Gap 17 (6-14) Blood Urea Nitrogen 34 mg/dL (8-26) Creatinine 7.0 mg/dL (0.7-1.3) Estimated GFR (Cockcroft-Gault) 8.2 Glucose Level 216 mg/dL (70-99) Calcium Level 8.9 mg/dL (8.5-10.1) Phosphorus Level 5.4 mg/dL (2.6-4.7) Glucose (Fingerstick) 193 mg/dL (70-99) Microbiology 05/28/21 Gram Stain - Final, Complete 05/28/21 Aerobic and Anaerobic Culture - Final, Complete 05/28/21 Antimicrobic Susceptibility - Final, Complete 05/26/21 Blood Culture - Final, Complete NO GROWTH AFTER 5 DAYS Medications Current Medications Sodium Chloride 1,000 ml @ 1,000 mls/hr 1X ONCE IV ; Start 05/26/21 at 01:30; Stop 05/26/21 at 02:29; Status DC Piperacillin Sod/ Tazobactam Sod (Zosyn Per Pharmacy) 1 each PRN DAILY PRN MC SEE COMMENTS; Start 05/26/21 at 01:30; Status Cancel Piperacillin Sod/ Tazobactam Sod 3.375 gm/Sodium Chloride 50 ml @ 100 mls/hr 1X ONCE IV Last administered on 05/26/21at 03:25; Start 05/26/21 at 02:15; Stop 05/26/21 at 02:44; Status DC Vancomycin HCl (Vanco Per Pharmacy) 1 each PRN DAILY PRN MC SEE COMMENTS Last administered on 06/05/21at 16:02; Start 05/26/21 at 03:15 Sodium Chloride 500 ml @ 500 mls/hr 1X ONCE IV Last administered on 05/26/21at 03:25; Start 05/26/21 at 03:30; Stop 05/26/21 at 04:29; Status DC Ondansetron HCl (Zofran) 4 mg PRN Q8HRS PRN IVP NAUSEA/VOMITING; Start 05/26/21 at 03:30; Stop 05/27/21 at 03:29; Status DC Acetaminophen (Tylenol) 650 mg PRN Q4HRS PRN PO FEVER > 100.3'F; Start 05/26/21 at 03:30; Stop 05/27/21 at 03:29; Status DC Insulin Human Lispro (HumaLOG) 0-5 UNITS TIDWMEALS SQ Last administered on 05/26/21at 09:09; Start 05/26/21 at 08:00; Stop 05/26/21 at 12:46; Status DC Dextrose (Dextrose 50%-Water Syringe) 12.5 gm PRN Q15MIN PRN IV SEE COMMENTS; Start 05/26/21 at 03:30; Status Cancel Vancomycin HCl 1.75 gm/Sodium Chloride 500 ml @ 250 mls/hr 1X ONCE IV Last administered on 05/26/21at 05:47; Start 05/26/21 at 06:00; Stop 05/26/21 at 07:59; Status DC Piperacillin Sod/ Tazobactam Sod 2.25 gm/Sodium Chloride 50 ml @ 100 mls/hr Q8HRS IV Last administered on 06/02/21at 05:35; Start 05/26/21 at 08:00; Stop 06/02/21 at 08:27; Status DC Sodium Hypochlorite (Dakin'S 1/4 Strength) 1 lópez BID TP Last administered on 06/03/21at 21:00; Start 05/26/21 at 11:00 Aspirin (Ecotrin) 81 mg DAILY PO Last administered on 06/06/21at 09:45; Start 05/26/21 at 14:00 Atorvastatin Calcium (Lipitor) 10 mg DAILY PO Last administered on 06/06/21at 08:18; Start 05/26/21 at 14:00 Cyanocobalamin (Vitamin B-12) 1,000 mcg DAILY PO Last administered on 06/06/21at 08:18; Start 05/27/21 at 09:00 EZETIMIBE (Zetia) 10 mg DAILY PO Last administered on 06/06/21at 08:18; Start 05/26/21 at 14:00 Topiramate (Topamax) 100 mg BID PO Last administered on 06/06/21at 23:47; Start 05/26/21 at 14:00 Trazodone HCl (Desyrel) 50 mg QHS PO Last administered on 06/06/21at 23:47; Start 05/26/21 at 21:00 Vitamin D (Vitamin D3) 1,000 unit DAILY PO Last administered on 06/06/21at 08:18; Start 05/26/21 at 14:00 Duloxetine HCl (Cymbalta) 60 mg HS PO Last administered on 06/06/21at 23:47; Start 05/26/21 at 21:00 Non-Formulary Medication (Icosapent Ethyl (Vascepa)) 2 cap BID PO ; Start 05/26/21 at 21:00; Status UNV Mirtazapine (Remeron) 45 mg QHS PO Last administered on 06/06/21at 23:47; Start 05/26/21 at 21:00 Pantoprazole Sodium (Protonix) 40 mg DAILYAC PO Last administered on 06/06/21at 08:15; Start 05/26/21 at 14:00 Pregabalin (Lyrica) 225 mg BID PO Last administered on 06/06/21at 23:47; Start 05/26/21 at 14:00 Promethazine HCl (Phenergan) 25 mg PRN Q6HRS PRN PO NAUSEA/VOMITING; Start 05/26/21 at 13:00 Levetiracetam 100 ml @ 400 mls/hr Q12HR IV ; Start 05/26/21 at 21:00; Status UNV Insulin Human Lispro (HumaLOG) 0-5 UNITS TIDWMEALS SQ Last administered on 06/06/21at 16:56; Start 05/26/21 at 17:00 Dextrose (Dextrose 50%-Water Syringe) 12.5 gm PRN Q15MIN PRN IV SEE COMMENTS; Start 05/26/21 at 12:45 Levetiracetam (Keppra) 500 mg BID PO ; Start 05/26/21 at 14:00; Status Cancel Lactobacillus Rhamnosus (Culturelle) 1 cap BID PO Last administered on 06/06/21at 23:47; Start 05/26/21 at 21:00 Levetiracetam 100 ml @ 400 mls/hr Q12HR IV Last administered on 05/29/21at 21:38; Start 05/26/21 at 14:00; Stop 05/29/21 at 23:00; Status DC Epoetin Catalino-epbx (RETACRIT for ESRD PTS) 10,000 unit MoWeFr@2100 SQ Last administered on 06/04/21at 21:23; Start 05/26/21 at 21:00 Vancomycin HCl (Vancomycin Random Level) 1 each 1X ONCE MC Last administered on 05/27/21at 05:00; Start 05/27/21 at 05:00; Stop 05/27/21 at 05:01; Status DC Info (PHARMACY MONITORING -- do not chart) 1 each PRN DAILY PRN MC SEE COMMENTS; Start 05/26/21 at 18:30; Status Cancel Vancomycin HCl (Vancomycin Random Level) 1 each 1X ONCE MC Last administered on 05/29/21at 06:00; Start 05/29/21 at 06:00; Stop 05/29/21 at 06:01; Status DC Sodium Chloride 1,000 ml @ 1,000 mls/hr Q1H PRN IV hypotension; Start 05/28/21 at 11:45; Stop 05/28/21 at 17:44; Status DC Sodium Chloride (Normal Saline Flush) 10 ml 1X PRN PRN IV AP catheter pack; Start 05/28/21 at 11:45; Stop 05/29/21 at 11:44; Status DC Sodium Chloride (Normal Saline Flush) 10 ml 1X PRN PRN IV HOPPER OPERATOR catheter pack; Start 05/28/21 at 11:45; Stop 05/29/21 at 11:44; Status DC Sodium Chloride 1,000 ml @ 400 mls/hr Q2H30M PRN IV PATENCY; Start 05/28/21 at 11:45; Stop 05/28/21 at 23:44; Status DC Info (PHARMACY MONITORING -- do not chart) 1 each PRN DAILY PRN MC SEE COMMENTS; Start 05/28/21 at 11:45; Status UNV Info (PHARMACY MONITORING -- do not chart) 1 each PRN DAILY PRN MC SEE COMMENTS; Start 05/28/21 at 11:45; Status UNV Metoprolol Succinate (Toprol Xl) 50 mg DAILY PO Last administered on 06/07/21at 08:08; Start 05/28/21 at 14:00 Vancomycin HCl (Vancomycin Random Level) 1 each 1X ONCE MC Last administered on 06/02/21at 06:00; Start 06/02/21 at 06:00; Stop 06/02/21 at 06:01; Status DC Levetiracetam (Keppra) 500 mg BID PO Last administered on 06/07/21at 08:28; Start 05/30/21 at 09:00 Perflutren Protein Type A Microsphe (Optison) 0.66 mg 1X ONCE IV ; Start 05/31/21 at 08:15; Stop 05/31/21 at 08:16; Status DC Sodium Chloride 1,000 ml @ 1,000 mls/hr Q1H PRN IV hypotension; Start 05/31/21 at 10:15; Stop 05/31/21 at 16:14; Status DC Albumin Human 200 ml @ 200 mls/hr 1X PRN PRN IV Hypotension; Start 05/31/21 at 10:15; Stop 05/31/21 at 16:14; Status DC Sodium Chloride 1,000 ml @ 400 mls/hr Q2H30M PRN IV PATENCY; Start 05/31/21 at 10:15; Stop 05/31/21 at 22:14; Status DC Info (PHARMACY MONITORING -- do not chart) 1 each PRN DAILY PRN MC SEE COMMENTS; Start 05/31/21 at 10:15; Status Cancel Meropenem 500 mg/ Sodium Chloride 50 ml @ 100 mls/hr DAILY IV Last administe red on 06/07/21at 08:07; Start 06/02/21 at 09:00 Fluconazole (Diflucan) 200 mg DAILY PO Last administered on 06/06/21at 08:19; S tart 06/02/21 at 09:00 Vancomycin HCl 500 mg/Sodium Chloride 100 ml @ 100 mls/hr QMWF IV Last administered on 06/04/21at 16:35; Start 06/04/21 at 16:00 Sodium Chloride 1,000 ml @ 1,000 mls/hr Q1H PRN IV hypotension; Start 06/02/21 at 14:15; Stop 06/02/21 at 20:14; Status DC Albumin Human 100 ml @ 200 mls/hr 1X PRN PRN IV Hypotension Last administered on 06/02/21at 15:00; Start 06/02/21 at 14:15; Stop 06/02/21 at 20:14; Status DC Sodium Chloride 1,000 ml @ 400 mls/hr Q2H30M PRN IV PATENCY; Start 06/02/21 at 14:15; Stop 06/03/21 at 02:14; Status DC Info (PHARMACY MONITORING -- do not chart) 1 each PRN DAILY PRN MC SEE COMMENTS; Start 06/02/21 at 14:15; Status Cancel Info (PHARMACY MONITORING -- do not chart) 1 each PRN DAILY PRN MC SEE COMMENTS; Start 06/02/21 at 14:15; Status Cancel Sodium Chloride 1,000 ml @ 1,000 mls/hr Q1H PRN IV hypotension; Start 06/04/21 at 08:15; Stop 06/04/21 at 14:14; Status DC Albumin Human 200 ml @ 200 mls/hr 1X PRN PRN IV Hypotension; Start 06/04/21 at 08:15; Stop 06/04/21 at 14:14; Status DC Sodium Chloride (Normal Saline Flush) 10 ml 1X PRN PRN IV AP catheter pack; Start 06/04/21 at 08:15; Stop 06/05/21 at 08:14; Status DC Sodium Chloride (Normal Saline Flush) 10 ml 1X PRN PRN IV HOPPER OPERATOR catheter pack; Start 06/04/21 at 08:15; Stop 06/05/21 at 08:14; Status DC Sodium Chloride 1,000 ml @ 400 mls/hr Q2H30M PRN IV PATENCY; Start 06/04/21 at 08:15; Stop 06/04/21 at 20:14; Status DC Info (PHARMACY MONITORING -- do not chart) 1 each PRN DAILY PRN MC SEE COMMENTS; Start 06/04/21 at 08:15; Status UNV Info (PHARMACY MONITORING -- do not chart) 1 each PRN DAILY PRN MC SEE COMMENTS; Start 06/04/21 at 08:15 Active Scripts Active Metoprolol Succinate 50 Mg Tab.er.24h 50 Mg PO DAILY 30 Days Levetiracetam 500 Mg Tablet 500 Mg PO BID 30 Days Reported Trazodone Hcl 50 Mg Tablet 1 Tab PO QHS Xultophy 100 Unit-3.6 mg/ml (Insulin Degludec/Liraglutide) 3 Ml Insuln.pen 24 Ml SQ HS Vitamin D (Cholecalciferol (Vitamin D3)) 1,000 Unit Capsule 1 Cap PO DAILY Atorvastatin Calcium 10 Mg Tablet 10 Mg PO DAILY Sildenafil (Sildenafil Citrate) 20 Mg Tablet 20 Mg PO TID Zetia (Ezetimibe) 10 Mg Tablet 10 Mg PO DAILY Omeprazole 40 Mg Capsule.dr 40 Mg PO DAILY Topiramate 100 Mg Tablet 100 Mg PO BID Promethazine Hcl 25 Mg Tablet 25 Mg PO Q6H PRN B-12 (Cyanocobalamin (Vitamin B-12)) 1,000 Mcg Tablet 1,000 Mcg PO DAILY Vascepa (Icosapent Ethyl) 1 Gm Capsule 2 Cap PO BID Aspirin Ec (Aspirin) 81 Mg Tablet. 81 Mg PO DAILY Duloxetine Hcl 60 Mg Capsule.dr 60 Mg PO HS Lyrica (Pregabalin) 225 Mg Capsule 225 Mg PO BID Losartan-Hctz 100-25 Mg Tab (Losartan/Hydrochlorothiazide) 1 Each Tablet 25 Mg PO DAILY Mirtazapine 45 Mg Tablet 45 Mg PO HS Amlodipine Besylate 5 Mg Tablet 5 Mg PO DAILY Vitals/I & O Vital Sign - Last 24 Hours 06/06/21 06/06/21 06/06/21 06/06/21 09:46 11:00 15:00 19:38 Temp 97.6 97.6 97.6 97.6 Pulse 80 78 63 Resp 17 17 B/P (MAP) 148/81 130/86 (101) 110/64 (79) 78/48 (58) Pulse Ox 94 93 O2 Delivery Room Air Room Air 06/06/21 06/06/21 06/06/21 06/07/21 19:38 23:23 23:45 03:43 Temp 97.4 97.4 97.5 97.4 97.4 97.5 Pulse 74 72 78 Resp 16 16 20 B/P (MAP) 78/ 112/72 (85) 144/75 (98) Pulse Ox 97 93 98 O2 Delivery Room Air Room Air Room Air Room Air 06/07/21 06/07/21 07:15 08:08 Temp 98.2 98.2 Pulse 79 79 Resp 18 B/P (MAP) 136/85 (102) 136/85 Pulse Ox 100 O2 Delivery Room Air Intake and Output 06/06/21 06/06/21 06/07/21 15:00 23:00 07:00 Intake Total 250 ml 0 ml Balance 250 ml 0 ml Justicifation of Admission Dx: Justifications for Admission: Justification of Admission Dx: N/A PAOLA DICK MD Jun 07, 2021 08:58
[2021-06-07] MEDS ORDERED: ALBUMIN HUMAN 25% 200 ML IV PRN (09:15)
[2021-06-07] MEDS ORDERED: IV NORMAL SALINE 1000ML BAG 1,000 ML IV PRN ×2 (09:15)
[2021-06-07] MEDS ORDERED: DIALYSIS PATIENT. MC PRN (09:15)
--- NOTE | 2021-06-07 10:26 | PDOC ---
DATE OF SERVICE DATE: 06/07/21 TIME: 10:26 SUBJECTIVE ROS Seen during dialysis , feeling better . On RA OBJECTIVE Vital Signs Vital Signs Date Time Temp Pulse Resp B/P (MAP) Pulse Ox O2 Delivery O2 Flow Rate FiO2 06/07/21 08:05 Room Air 06/07/21 07:15 98.2 79 18 136/85 (102) 100 98.2 I & 0 Intake and Output 06/07/21 07:00 Intake Total 250 ml Balance 250 ml Intake Oral 200 ml IV Total 50 ml # Voids 3 PHYSICAL EXAM Physical Exam GENERAL:not in distress. HEENT: Both pupils are round and reacting. OM moist NECK: Supple. No JVP, LUNGS: Clear. HEART: S1, S2, regular. ABDOMEN: Soft, nontender. No organomegaly. EXTREMITIES: There are multiple superficial wounds on to the extremities. Muscle wasting present. full-length TMA incision has dehisced and some purulent drainage coming out NEUROLOGIC: Grossly normal DIAGNOSIS/ASSESSMENT Assessment & Plan ESRD - on HD MWF, Seen during treatment , tolerating well. Continue as ordered. Colten PEREZ Anemia- Continue Retacrit COVID-19 positive.On RA Left foot infection. Currently on Abx. Vascular is recommending BKA. Coronary artery disease. Hypertension. Diabetes. COMMENT/RELEVANT DATA Meds Current Medications Medications (Trade) Dose Ordered Sig/Babak Start Time Stop Time Status Last Admin Dose Admin Acetaminophen (Tylenol) 650 mg PRN Q4HRS PRN 05/26/21 03:30 05/27/21 03:29 DC Albumin Human 200 ml @ 200 mls/hr 1X PRN PRN 06/07/21 09:15 06/07/21 15:14 Aspirin (Ecotrin) 81 mg DAILY 05/26/21 14:00 06/06/21 09:45 81 MG Atorvastatin Calcium (Lipitor) 10 mg DAILY 05/26/21 14:00 06/06/21 08:18 10 MG Cyanocobalamin (Vitamin B-12) 1,000 mcg DAILY 05/27/21 09:00 06/06/21 08:18 1,000 MCG Dextrose (Dextrose 50%-Water Syringe) 12.5 gm PRN Q15MIN PRN 05/26/21 12:45 Duloxetine HCl (Cymbalta) 60 mg HS 05/26/21 21:00 06/06/21 23:47 60 MG Epoetin Catalino-epbx (RETACRIT for ESRD PTS) 10,000 unit MoWeFr@2100 05/26/21 21:00 06/04/21 21:23 10,000 UNIT EZETIMIBE (Zetia) 10 mg DAILY 05/26/21 14:00 06/06/21 08:18 10 MG Fluconazole (Diflucan) 200 mg DAILY 06/02/21 09:00 06/06/21 08:19 200 MG Info (PHARMACY MONITORING -- do not chart) 1 each PRN DAILY PRN 06/07/21 09:15 UNV Insulin Human Lispro (HumaLOG) 0-5 UNITS TIDWMEALS 05/26/21 17:00 06/06/21 16:56 3 UNITS Lactobacillus Rhamnosus (Culturelle) 1 cap BID 05/26/21 21:00 06/06/21 23:47 1 CAP Levetiracetam (Keppra) 500 mg BID 05/30/21 09:00 06/06/21 23:48 500 MG Meropenem 500 mg/ Sodium Chloride 50 ml @ 100 mls/hr DAILY 06/02/21 09:00 06/07/21 08:07 100 MLS/HR Metoprolol Succinate (Toprol Xl) 50 mg DAILY 05/28/21 14:00 06/06/21 09:46 50 MG Mirtazapine (Remeron) 45 mg QHS 05/26/21 21:00 06/06/21 23:47 45 MG Non-Formulary Medication (Icosapent Ethyl (Vascepa)) 2 cap BID 05/26/21 21:00 UNV Ondansetron HCl (Zofran) 4 mg PRN Q8HRS PRN 05/26/21 03:30 05/27/21 03:29 DC Pantoprazole Sodium (Protonix) 40 mg DAILYAC 05/26/21 14:00 06/06/21 08:15 40 MG Perflutren Protein Type A Microsphe (Optison) 0.66 mg 1X ONCE 05/31/21 08:15 05/31/21 08:16 DC Piperacillin Sod/ Tazobactam Sod (Zosyn Per Pharmacy) 1 each PRN DAILY PRN 05/26/21 01:30 Cancel Piperacillin Sod/ Tazobactam Sod 2.25 gm/Sodium Chloride 50 ml @ 100 mls/hr Q8HRS 05/26/21 08:00 06/02/21 08:27 DC 06/02/21 05:35 100 MLS/HR Piperacillin Sod/ Tazobactam Sod 3.375 gm/Sodium Chloride 50 ml @ 100 mls/hr 1X ONCE 05/26/21 02:15 05/26/21 02:44 DC 05/26/21 03:25 100 MLS/HR Pregabalin (Lyrica) 225 mg BID 05/26/21 14:00 06/06/21 23:47 225 MG Promethazine HCl (Phenergan) 25 mg PRN Q6HRS PRN 05/26/21 13:00 Sodium Hypochlorite (Dakin'S 1/ Strength) 1 lópez BID 05/26/21 11:00 06/03/21 21:00 1 LÓPEZ Sodium Chloride 1,000 ml @ 400 mls/hr Q2H30M PRN 06/07/21 09:15 06/07/21 21:14 Sodium Chloride (Normal Saline Flush) 10 ml 1X PRN PRN 06/04/21 08:15 06/05/21 08:14 DC Topiramate (Topamax) 100 mg BID 05/26/21 14:00 06/06/21 23:47 100 MG Trazodone HCl (Desyrel) 50 mg QHS 05/26/21 21:00 06/06/21 23:47 50 MG Vancomycin HCl (Vanco Per Pharmacy) 1 each PRN DAILY PRN 05/26/21 03:15 06/05/21 16:02 1 EACH Vancomycin HCl (Vancomycin Random Level) 1 each 1X ONCE 06/02/21 06:00 06/02/21 06:01 DC 06/02/21 06:00 1 EACH Vancomycin HCl 1.75 gm/Sodium Chloride 500 ml @ 250 mls/hr 1X ONCE 05/26/21 06:00 05/26/21 07:59 DC 05/26/21 05:47 250 MLS/HR Vancomycin HCl 500 mg/Sodium Chloride 100 ml @ 100 mls/hr QMWF 06/04/21 16:00 06/04/21 16:35 100 MLS/HR Vitamin D (Vitamin D3) 1,000 unit DAILY 05/26/21 14:00 06/06/21 08:18 1,000 UNIT Lab Laboratory Tests Test 06/06/21 11:29 06/06/21 11:50 06/06/21 16:29 06/06/21 20:06 Sodium Level 146 mmol/L (136-145) Potassium Level 4.0 mmol/L (3.5-5.1) Chloride Level 105 mmol/L (98-107) Carbon Dioxide Level 28 mmol/L (21-32) Anion Gap 13 (6-14) Blood Urea Nitrogen 28 mg/dL (8-26) Creatinine 6.4 mg/dL (0.7-1.3) Estimated GFR (Cockcroft-Gault) 9.1 BUN/Creatinine Ratio 4 (6-20) Glucose Level 165 mg/dL (70-99) Calcium Level 8.3 mg/dL (8.5-10.1) Total Bilirubin 0.8 mg/dL (0.2-1.0) Aspartate Amino Transf (AST/SGOT) 22 U/L (15-37) Alanine Aminotransferase (ALT/SGPT) 32 U/L (16-63) Alkaline Phosphatase 96 U/L (46-116) Total Protein 7.0 g/dL (6.4-8.2) Albumin 2.2 g/dL (3.4-5.0) Albumin/Globulin Ratio 0.5 (1.0-1.7) Glucose (Fingerstick) 139 mg/dL (70-99) 201 mg/dL (70-99) 192 mg/dL (70-99) Test 06/07/21 06:40 06/07/21 06:55 White Blood Count 10.2 x10^3/uL (4.0-11.0) Red Blood Count 3.76 x10^6/uL (4.30-5.70) Hemoglobin 10.2 g/dL (13.0-17.5) Hematocrit 34.4 % (39.0-53.0) Mean Corpuscular Volume 91 fL (79-100) Mean Corpuscular Hemoglobin 27 pg (25-35) Mean Corpuscular Hemoglobin Concent 30 g/dL (31-37) Red Cell Distribution Width 29.5 % (11.5-14.5) Platelet Count 221 x10^3/uL (140-400) Neutrophils (%) (Auto) 69 % (31-73) Lymphocytes (%) (Auto) 17 % (24-48) Monocytes (%) (Auto) 7 % (0-9) Eosinophils (%) (Auto) 5 % (0-3) Basophils (%) (Auto) 2 % (0-3) Neutrophils # (Auto) 7.0 x10^3/uL (1.8-7.7) Lymphocytes # (Auto) 1.7 x10^3/uL (1.0-4.8) Monocytes # (Auto) 0.7 x10^3/uL (0.0-1.1) Eosinophils # (Auto) 0.5 x10^3/uL (0.0-0.7) Basophils # (Auto) 0.2 x10^3/uL (0.0-0.2) Sodium Level 139 mmol/L (136-145) Potassium Level 4.7 mmol/L (3.5-5.1) Chloride Level 102 mmol/L (98-107) Carbon Dioxide Level 20 mmol/L (21-32) Anion Gap 17 (6-14) Blood Urea Nitrogen 34 mg/dL (8-26) Creatinine 7.0 mg/dL (0.7-1.3) Estimated GFR (Cockcroft-Gault) 8.2 Glucose Level 216 mg/dL (70-99) Calcium Level 8.9 mg/dL (8.5-10.1) Phosphorus Level 5.4 mg/dL (2.6-4.7) Glucose (Fingerstick) 193 mg/dL (70-99) Results All relevant outside records, renal labs, imaging studies, telemetry/EKG's were reviewed. Justicifation of Admission Dx: Justifications for Admission: Justification of Admission Dx: N/A JUSTIN LARKIN MD Jun 07, 2021 10:26
--- NOTE | 2021-06-07 10:36 | PDOC ---
Infectious Disease Note Subjective: Subjective Patient without new complaints Patient seen in dialysis unit Vital Signs: Vital Signs Vital Signs Date Time Temp Pulse Resp B/P (MAP) Pulse Ox O2 Delivery O2 Flow Rate FiO2 06/07/21 08:05 Room Air 06/07/21 07:15 98.2 79 18 136/85 (102) 100 98.2 Physical Exam: PHYSICAL EXAM GENERAL: Alert awake oriented x3 male in no acute distress on room air HEENT: Both pupils are round and reacting. No conjunctival lesion. No lesion in the mouth. NECK: Supple. No JVP, no lymphadenopathy. LUNGS: Clear. HEART: S1, S2, regular. ABDOMEN: Soft, nontender. No organomegaly. EXTREMITIES: There are multiple superficial wounds on to the extremities. Muscle wasting present. Left foot reveals dehiscence of the amputation site. Surrounding Black eschar around the wound noted. Unhealthy necrotic base. Large area involved with gangrenous eschar on the dorsum of the foot. NEUROLOGIC: The patient is awake, try to say something, mumbles few words, occasional appropriate nodding. Medications: Inpatient Meds: Medications reviewed. Labs: Lab Laboratory Tests Test 06/06/21 11:29 06/06/21 11:50 06/06/21 16:29 06/06/21 20:06 Sodium Level 146 mmol/L (136-145) Potassium Level 4.0 mmol/L (3.5-5.1) Chloride Level 105 mmol/L (98-107) Carbon Dioxide Level 28 mmol/L (21-32) Anion Gap 13 (6-14) Blood Urea Nitrogen 28 mg/dL (8-26) Creatinine 6.4 mg/dL (0.7-1.3) Estimated GFR (Cockcroft-Gault) 9.1 BUN/Creatinine Ratio 4 (6-20) Glucose Level 165 mg/dL (70-99) Calcium Level 8.3 mg/dL (8.5-10.1) Total Bilirubin 0.8 mg/dL (0.2-1.0) Aspartate Amino Transf (AST/SGOT) 22 U/L (15-37) Alanine Aminotransferase (ALT/SGPT) 32 U/L (16-63) Alkaline Phosphatase 96 U/L (46-116) Total Protein 7.0 g/dL (6.4-8.2) Albumin 2.2 g/dL (3.4-5.0) Albumin/Globulin Ratio 0.5 (1.0-1.7) Glucose (Fingerstick) 139 mg/dL (70-99) 201 mg/dL (70-99) 192 mg/dL (70-99) Test 06/07/21 06:40 06/07/21 06:55 White Blood Count 10.2 x10^3/uL (4.0-11.0) Red Blood Count 3.76 x10^6/uL (4.30-5.70) Hemoglobin 10.2 g/dL (13.0-17.5) Hematocrit 34.4 % (39.0-53.0) Mean Corpuscular Volume 91 fL (79-100) Mean Corpuscular Hemoglobin 27 pg (25-35) Mean Corpuscular Hemoglobin Concent 30 g/dL (31-37) Red Cell Distribution Width 29.5 % (11.5-14.5) Platelet Count 221 x10^3/uL (140-400) Neutrophils (%) (Auto) 69 % (31-73) Lymphocytes (%) (Auto) 17 % (24-48) Monocytes (%) (Auto) 7 % (0-9) Eosinophils (%) (Auto) 5 % (0-3) Basophils (%) (Auto) 2 % (0-3) Neutrophils # (Auto) 7.0 x10^3/uL (1.8-7.7) Lymphocytes # (Auto) 1.7 x10^3/uL (1.0-4.8) Monocytes # (Auto) 0.7 x10^3/uL (0.0-1.1) Eosinophils # (Auto) 0.5 x10^3/uL (0.0-0.7) Basophils # (Auto) 0.2 x10^3/uL (0.0-0.2) Sodium Level 139 mmol/L (136-145) Potassium Level 4.7 mmol/L (3.5-5.1) Chloride Level 102 mmol/L (98-107) Carbon Dioxide Level 20 mmol/L (21-32) Anion Gap 17 (6-14) Blood Urea Nitrogen 34 mg/dL (8-26) Creatinine 7.0 mg/dL (0.7-1.3) Estimated GFR (Cockcroft-Gault) 8.2 Glucose Level 216 mg/dL (70-99) Calcium Level 8.9 mg/dL (8.5-10.1) Phosphorus Level 5.4 mg/dL (2.6-4.7) Glucose (Fingerstick) 193 mg/dL (70-99) Micro Micro RUN DATE: 05/29/21 [facility] *LIVE* PAGE 1 RUN TIME: 1126 Specimen Inquiry PATIENT: JETFER Holguin ACCT: [id number] LOC: [address] [place] [address] U: [id number] AGE/SX: 55/M ROOM: [facility] RE05/26/[address]: KAHLIL WADE MD : 1965 BED: 1 DIS: STATUS: ADM IN TLOC: SPEC #: [id number] CHERIE: 05/26/21-0130 STATUS: RES REQ #: [id number] RECD: 05/27/21 [facility] DR: KAHLIL WADE MD SOURCE: FOOT ENTR: 05/27/[address]: MACHELLE COPE MD [facility]: LEFT NUBIA PATTON MD, ZHIPENG DP ORDERED: CHIDI/SANDRA/MARICEL COMMENTS: LEFT FOOT SWAB Procedure Result ---- -------- GRAM STAIN Final Final GRAM NEGATIVE RODS:MANY SQUAMOUS EPI CELL:NONE SEEN PMN (WBCs):RARE Unless otherwise specified, Testing Performed by: [address] [address] For Inquires, the Physician may contact the Microbiology department at [phone] ANAEROBIC-AEROBIC CULTURE Preliminary Preliminary MANY [ENTEROBACTER CLOACAE COMPLEX] on 05/28/21 at 1127 FEW [MARY ALBICANS] on 05/28/21 at 1127 ENTEROBACTER CLOACAE COMPLEX MARY ALBICANS ANTIMICROBIAL SUSCEPTIBILITY Preliminary Comment NEG JANI 56 ENTEROBACTER CLOACAE COMPLEX ANTIBIOTIC RESULT INTERPRETATION AMPICILLIN/SULBACTAM >16/8 R AMIKACIN <=16 S AMPICILLIN >16 R AMOXICILLIN/K CLAVULANATE >16/8 R AZTREONAM >16 R CEFTRIAXONE >32 R CEFTAZIDIME <=1 S CEFOTAXIME <=2 S CEFOXITIN <=8 R* CEFAZOLIN >16 R CIPROFLOXACIN <=0.25 S CEFEPIME <=2 S CEFUROXIME >16 R ERTAPENEM <=0.5 S RUN DATE: 05/29/21 [facility] *LIVE* PAGE 2 RUN TIME: 1127 Specimen Inquiry SPEC: [id number] PATIENT: FER CHAUDHARY Chelsie [id number] (Continued) Procedure Result CONTINUED ON NEXT PAGE RUN DATE: 05/29/21 [facility] *LIVE* PAGE 3 RUN TIME: 1127 Specimen Inquiry SPEC: [id number] PATIENT: FER CHAUDHARY [id number] (Continued) Procedure Result ------- ----- ANTIMICROBIAL SUSCEPTIBILITY Preliminary (continued) GENTAMICIN <=2 S LEVOFLOXACIN <=0.5 S MEROPENEM <=1 S PIPERACILLIN/TAZOBACTAM >64 R TRIMETHOPRIM/SULFAMETHOXAZOLE <=0.5/9.5 S TETRACYCLINE <=4 S TOBRAMYCIN <=2 S Unless otherwise specified, Testing Performed by: [facility] [address] [place] [address] For Inquires, the Physician may contact the Microbiology department at [phone] Objective: Assessment: 1. Encephalopathy. 2. COVID-19 positive. 3. Fever. Resolved 4. 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 Patient is refusing left BKA Swab cultures positive for Enterobacter MDRO and Mary I&D cultures positive for MDRO Enterobacter ESR 54, CRP 149. 5. End-stage renal disease, on hemodialysis. 6. Seizure disorder. 7. Coronary artery disease. 8. Hypertension. 9. Diabetes. Plan: Plan of Care Continue IV Vanc,merrem.fluconazole Patient is awaiting angiogram today and subsequently left BKA per vascular Continue local wound care as directed Continue supportive care Discussed with JUAN ALBERTO POSADAS MD Jun 07, 2021 10:36
--- NOTE | 2021-06-07 10:58 | NUR ---
SW following. Chart reviewed, pt getting angiogram today, possible BKA to follow. Therapy after procedures - likely discharge to SNF. COVID-19 positive on 05/26/21. SW checking with [facility] if pt can return there since he is now 12 days since positive COVID test. SW will continue to follow.
[2021-06-07] MEDS ORDERED: IODIXANOL 320 MG/ML 100 ML VIAL. ONE (11:49)
[2021-06-07] MEDS ORDERED: LIDOCAINE 1% Multi-Dose 20 ML VIAL. ONE (12:03)
[2021-06-07] MEDS ORDERED: MIDAZOLAM HCL/PF 2 MG/2 ML VIAL. ONE (14:14)
[2021-06-07] MEDS ORDERED: fentaNYL PF VIAL 100 MCG/2 ML VIAL ONE (14:15)
[2021-06-07] MEDS ORDERED: HEPARIN for IV BOLUS 10,000 UNIT/10 ML VIAL. ONE (14:15)
[2021-06-07] MEDS ORDERED: MIDAZOLAM HCL/PF 2 MG/2 ML VIAL. IV ONE (14:45)
[2021-06-07] MEDS ORDERED: fentaNYL PF VIAL 100 MCG/2 ML VIAL IV ONE (14:45)
[2021-06-07] MEDS ORDERED: LIDOCAINE 1% Multi-Dose 20 ML VIAL. INJ ONE (14:45)
[2021-06-07] MEDS ORDERED: IODIXANOL 320 MG/ML 100 ML VIAL. IART ONE (14:45)
[2021-06-07] MEDS: VANCOMYCIN 500 MG in IV NORMAL SALINE 100ML 100 ML IV SCH (16:39)
--- NOTE | 2021-06-07 18:53 | CARD ---
MR#: [id number] Date of Study: 06/07/2021 Ordering Physician: TEJAL GUO, Referring Physician: TEJAL GUO, Tech: APPROVED REPORT Patient Location: IN-PATIENT Indications FLOURO TIME: 4.0 MINUTES DOSE: 45.46 Gycm2 CONTRAST: 50cc's VISIPAQUE MODERATE SEDATION: 60 MINUTES Risk Factors PAD Findings Reason for procedure: Preoperative evaluation prior to left below-knee amputation. Procedure details: After appropriate informed consent the right groin was prepped and draped in usual sterile fashion. Under 1% lidocaine local anesthesia with ultrasound guidance and fluoroscopic guidance a 5 Irish she ath was placed in the right common femoral artery. Next a 5 Irish Omni Flush catheter was advanced to the mid abdominal aorta. Digital subtraction angiography of the aorta and iliac vessels was perfo rmed. Next the Omni Flush catheter was used to engage the left common iliac artery and a J-tipped gu idewire was placed in the left common femoral artery. The Omni Flush catheter was then advanced and digital subtraction angiography was performed of the left lower extremity. Next the Omni Flush emil ter was withdrawn and a right lower extremity digital subtraction angiography was performed through t he sheath. At case completion the right groin sheath was removed and hemostasis was achieved via man ual compression. No acute complications. Findings: Aorta has long diffuse negative remodeling without any focal stenosis. Right common iliac artery has no significant disease Right external iliac artery has no significant disease Right internal iliac artery has moderate diffuse disease of up to 50% Right common femoral artery has a high bifurcation without any significant disease Right superficial femoral artery has moderate diffuse disease of 40 to 50% Right popliteal artery has diffuse disease of up to 50% Right TP trunk has a proximal occlusion Right anterior tibial artery is the main vessel for distal runoff and provides mild collaterals to th e posterior tibial artery at the level of the ankle. Left common iliac artery has a proximal 30% eccentric plaque. There is no gradient across the stenos is. Left external iliac artery has no significant disease Left internal iliac artery has a mid 70% stenosis. Left common femoral artery has no significant disease Left profunda has moderate diffuse disease of up to 90% Left SFA has moderate diffuse disease with a proximal 60% stenosis with eccentric plaque and probable underlying dissection followed by a more distal 60% stenosis at the abductor canal. Left popliteal artery has moderate diffuse disease of up to 30 to 40% Left posterior tibial artery is the main runoff to the foot The left anterior tibial artery is occluded and is seen to fill via collaterals. Left peroneal artery has a distal subtotal occlusion. Critical Notification Critical Value: No <Conclusion> 1. No significant aortoiliac disease bilaterally 2. Moderate diffuse 50 to 60% stenosis involving the SFA with one-vessel runoff bilaterally. 3. Case discussed with vascular surgery. Plan for below-knee amputation on the left side and monito ring for wound healing of the stump if there is any significant concern could at that time consider h igh risk intervention with atherectomy and stenting as necessary. Signed by : Robert Stahl, Electronically Approved : 06/07/2021 18:52:17
[2021-06-07] MEDS: traZODone 50 MG TABLET. PO SCH (21:00)
[2021-06-07] MEDS: DULoxetine HCL 30 MG CAPSULE.DR PO SCH (21:21)
[2021-06-07] MEDS: MIRTAZAPINE 15 MG TABLET PO SCH (21:21)
[2021-06-07] MEDS: EPOETIN ALFA-EPBX for ESRD 20,000 UNIT/ML VIAL. SQ SCH (21:22)
[2021-06-08 03:00] VITALS: BP 121/70
--- NOTE | 2021-06-08 04:27 | PN ---
DATE: 06/07/2021 SUBJECTIVE: The patient is resting, slightly propped up in bed, in no apparent distress, awake, alert. On questioning, he denies any complaint. He is n.p.o. as he is scheduled for angiogram ____ revascularization before he undergoes left below-knee amputation. PHYSICAL EXAMINATION: GENERAL: On examining him, he was pale, not jaundiced, cyanosed, no lymphadenopathy, no thyromegaly. No jugular venous distention. No limb edema. VITAL SIGNS: His heart rate was 79, blood pressure was 136/85, temperature was 98.2, respiratory rate was 18 and oxygen saturation was 100% on room air. HEAD, EYES, EARS, NOSE AND THROAT: Normocephalic, atraumatic. NECK: Supple. HEART: Showed normal first and second heart sounds. No gallop, rub or murmur. CHEST: Clear to auscultation, no crepitation or rhonchi. ABDOMEN: Scaphoid, soft, nontender. NEUROLOGIC: He is awake, alert, responding appropriately. Cranial nerves intact. He moves upper extremities without difficulty. He has left transmetatarsal amputation with a history of an infected wound. His intake and output were incompletely recorded. LABORATORY DATA: As of this morning, his white cell count was 10,200, hemoglobin 10, hematocrit 34, MCV 91, and platelet count 221,000. His chemistry showed a serum sodium 139, potassium 4.7, chloride 102, bicarbonate 20, anion gap of 17, BUN 34, creatinine 7 and calcium was 8.2. Estimated GFR the calcium was 8.9. ASSESSMENT: 1. The patient is status post left transmetatarsal amputation with dehiscence and infection of the wound and a large eschar on the dorsum of the left foot. He was seen by the director of cloud services as well as the vascular surgeon and both recommended left below-knee amputation. Apparently, the patient has finally agreed and signed a consent to undergo left below-knee amputation. 2. The patient has arterial Doppler ultrasound, which showed significant stenosis. Therefore, he was scheduled for an arteriogram today with revascularization if deemed necessary to optimize the blood supply before he undergoes left below-knee amputation. 3. He has an asymptomatic COVID-19 infection. 4. The patient has end-stage renal disease, on hemodialysis Monday, Monday, Monday. 5. Type 1 diabetes mellitus with triopathy. 6. Atrial fibrillation, rate controlled, not anticoagulated. 7. Coronary artery disease status post coronary artery bypass graft surgery. 8. Ischemic cardiomyopathy. 9. Hypertension. 10. Cerebrovascular accident. 11. Peripheral neuropathy. 12. History of chronic subdural hematoma that appears to have resolved. 13. Seizure disorder. 14. Peripheral arterial disease, status post transmetatarsal amputation. PLAN: To continue with IV antibiotic. Continue with wound care. Continue with hemodialysis as per Nephrology team. Continue with wound care. Continue to monitor his blood sugar and adjust insulin as needed. RADHA/TARA DR: Tyler TID: [id number]
[2021-06-08 07:00] VITALS: BP 115/61
[2021-06-08 07:54] LABS: HEMATOCRIT 32.6 % (39.0-53.0); HEMOGLOBIN 9.8 g/dL (13.0-17.5)
[2021-06-08] MEDS: PREGABALIN 75 MG CAPSULE PO SCH ×2 (08:58→21:18)
[2021-06-08] MEDS: MEROPENEM 500 MG in IV NORMAL SALINE 50ML 50 ML IV SCH (08:58)
[2021-06-08] MEDS: LACTOBACILLUS RHAMNOSUS GG 1 CAPSULE. PO SCH ×2 (08:58→21:18)
[2021-06-08] MEDS: CYANOCOBALAMIN (VITAMIN B-12) 1,000 MCG TABLET. PO SCH (08:58)
[2021-06-08] MEDS: levETIRAcetam 500 MG TABLET PO SCH ×2 (08:58→21:18)
[2021-06-08] MEDS: ASPIRIN ENTERIC COATED 81 MG TABLET.DR. PO SCH (08:58)
[2021-06-08] MEDS: CHOLECALCIFEROL (VITAMIN D3) 1,000 UNIT TABLET PO SCH (08:58)
[2021-06-08] MEDS: TOPIRAMATE 100 MG TABLET. PO SCH ×2 (08:59→21:18)
[2021-06-08] MEDS: EZETIMIBE 10 MG TABLET. PO SCH (08:59)
[2021-06-08] MEDS: ATORVASTATIN CALCIUM 10 MG TABLET. PO SCH (08:59)
[2021-06-08] MEDS: METOPROLOL SUCC 24HR ER 50 MG TAB.ER.24H. PO SCH (08:59)
[2021-06-08] MEDS: FLUCONAZOLE 100 MG TABLET. PO SCH (08:59)
[2021-06-08] MEDS: PANTOPRAZOLE 40 MG TABLET.DR. PO SCH (08:59)
[2021-06-08] MEDS: INSULIN LISPRO 300 UNITS/3 ML VIAL. SQ SCH ×3 (09:00→17:00)
[2021-06-08] MEDS: SODIUM HYPOCHLORITE 0.125% 473 ML BOTTLE. TP SCH ×2 (09:00→21:00)
--- NOTE | 2021-06-08 09:38 | PN ---
DATE: 06/08/2021 SUBJECTIVE: The patient is resting, slightly propped up in bed, in no apparent distress. He is awake, alert. On questioning him, he denied any complaint. The nursing staff did not voice any concerns that he had an eventful night. He underwent abdominal angiogram yesterday which showed that the patient has no significant aortoiliac disease bilaterally, moderate diffuse 50-60% stenosis involving the superficial femoral artery with 1-vessel runoff bilaterally. Apparently the findings were discussed with the vascular surgeon for planning for below-knee amputation on the left side tomorrow and to monitor his wound healing of the stump and if there is any significant concern at the time could consider high risk intervention with atherectomy and stenting as necessary. PHYSICAL EXAMINATION: GENERAL: When I examined him this morning, he was pale, not jaundiced or cyanosed, no lymphadenopathy, no thyromegaly, no jugular venous distention. No limb edema. VITAL SIGNS: His heart rate was 79, blood pressure is 115/61, temperature was 98.7, respiratory rate was 16 and oxygen saturation was 98% on 2 liters of oxygen. HEAD, EYES, EARS, NOSE, AND THROAT: Showed normocephalic, atraumatic. NECK: Supple. HEART: Normal first and second heart sounds. No gallop, rub or murmur. CHEST: Clear to auscultation, no crepitation or rhonchi. ABDOMEN: Distended, soft, nontender. NEUROLOGIC: He is awake, alert, responding appropriately. All cranial nerves intact. He moves upper extremities without difficulty. He has left transmetatarsal amputation with dehisced wound. LABORATORY DATA: His chemistry is variable, he is hemodialysis dependent. His hemoglobin today was 9.8, hematocrit 33. ASSESSMENT: 1. The patient is status post left transmetatarsal amputation with dehiscence and infection of the wound and a large eschar on the dorsum of the left foot. He was seen by the administrative judge as well as the vascular surgeon and both recommended left below-knee amputation. He agreed and finally signed a consent to undergo left below-knee amputation. 2. The patient has arterial Doppler ultrasound, which showed significant stenosis; however, an arteriogram done yesterday showed no significant aortoiliac disease bilaterally. He has moderate diffuse 50-60% stenosis involving the superficial femoral artery with 1-vessel runoff bilaterally. 3. He has asymptomatic COVID-19 infection. He is now off isolation. 4. The patient has end-stage renal disease, on hemodialysis on Monday, Monday, Monday. 5. Type 1 diabetes mellitus with triopathy. 6. Atrial fibrillation, rate controlled, not anticoagulated. 7. Coronary artery disease status post coronary artery bypass graft surgery. 8. Ischemic cardiomyopathy. 9. Hypertension. 10. Cerebrovascular accident. 11. Peripheral neuropathy. 12. History of chronic subdural hematoma that appears to have resolved. 13. Seizure disorder. 14. Peripheral arterial disease, status post left transmetatarsal amputation. PLAN: To continue IV antibiotic. Continue with wound care. Continue with hemodialysis as per Nephrology team. Continue to monitor his blood sugar and adjust insulin as needed. He is scheduled for left below-knee amputation tomorrow. CHERYL/EBEN DR: Tyler TID: [id number]
--- NOTE | 2021-06-08 10:32 | PDOC ---
Infectious Disease Note Subjective: Subjective Patient without new complaints On 2 L O2 by nasal cannula Vital Signs: Vital Signs Vital Signs Date Time Temp Pulse Resp B/P (MAP) Pulse Ox O2 Delivery O2 Flow Rate FiO2 06/08/21 08:59 79 115/61 06/08/21 08:05 Nasal Cannula 2.0 06/08/21 07:00 98.7 16 98 98.7 Physical Exam: PHYSICAL EXAM GENERAL: Alert awake oriented x3 male in no acute distress on nasal O2 HEENT: Both pupils are round and reacting. No conjunctival lesion. No lesion in the mouth. NECK: Supple. No JVP, no lymphadenopathy. LUNGS: Clear. HEART: S1, S2, regular. ABDOMEN: Soft, nontender. No organomegaly. EXTREMITIES: There are multiple superficial wounds on to the extremities. Muscle wasting present. Left foot reveals dehiscence of the amputation site. Surrounding Black eschar around the wound noted. Unhealthy necrotic base. Large area involved with gangrenous eschar on the dorsum of the foot. NEUROLOGIC: The patient is awake, try to say something, mumbles few words, occasional appropriate nodding. Medications: Inpatient Meds: Medications reviewed. Labs: Lab Laboratory Tests Test 06/07/21 17:10 06/07/21 21:10 06/08/21 07:00 06/08/21 07:41 Glucose (Fingerstick) 159 mg/dL (70-99) 163 mg/dL (70-99) 165 mg/dL (70-99) Hemoglobin 9.8 g/dL (13.0-17.5) Hematocrit 32.6 % (39.0-53.0) Micro Micro RUN DATE: 05/29/21 [facility] *LIVE* PAGE 1 RUN TIME: 1127 Specimen Inquiry PATIENT: FER CHAUDHARY ACCT: [id number] LOC: [address] [place] [address] U: [id number] AGE/SX: 55/M ROOM: 2 RE05/26/[address]: KAHLIL WADE MD : 1965 BED: 1 DIS: STATUS: ADM IN TLOC: SPEC #: [id number] CHERIE: 05/26/21 STATUS: RES REQ #: [id number] RECD: 05/27/[address]: KAHLIL WADE MD SOURCE: FOOT ENTR: 05/27/[address]: MACHELLE COPE MD SPDESC: NUBIA COLINDRES MD, ZHIPENG DPM ORDERED: CHIDI/SANDRA/MARICEL COMMENTS: LEFT FOOT SWAB Procedure Result GRAM STAIN Final Final GRAM NEGATIVE RODS:MANY SQUAMOUS EPI CELL:NONE SEEN PMN (WBCs):RARE Unless otherwise specified, Testing Performed by: [address] [address] For Inquires, the Physician may contact the Microbiology department at [phone] ANAEROBIC-AEROBIC CULTURE Preliminary Preliminary MANY [ENTEROBACTER CLOACAE COMPLEX] on 05/28/21 at 1127 FEW [MARY ALBICANS] on 05/28/21 at 1127 ENTEROBACTER CLOACAE COMPLEX MARY ALBICANS ANTIMICROBIAL SUSCEPTIBILITY Preliminary Comment NEG JANI 56 ENTEROBACTER CLOACAE COMPLEX ANTIBIOTIC RESULT INTERPRETATION AMPICILLIN/SULBACTAM >16/8 R AMIKACIN <=16 S AMPICILLIN >16 R AMOXICILLIN/K CLAVULANATE >16/8 R AZTREONAM >16 R CEFTRIAXONE >32 R CEFTAZIDIME <=1 S CEFOTAXIME <=2 S CEFOXITIN <=8 R* CEFAZOLIN >16 R CIPROFLOXACIN <=0.25 S CEFEPIME <=2 S CEFUROXIME >16 R ERTAPENEM <=0.5 S RUN DATE: 05/29/21 [facility] *LIVE* PAGE 2 RUN TIME: 112 Specimen Inquiry SPEC: [id number] PATIENT: FER CHAUDHARY [id number] ( Continued) Procedure Result CONTINUED ON NEXT PAGE RUN DATE: 05/29/21 [facility] *LIVE* PAGE 3 RUN TIME: 1127 Specimen Inquiry SPEC: [id number] PATIENT: FER CHAUDHARY [id number] (Continued) Procedure Result ANTIMICROBIAL SUSCEPTIBILITY Preliminary (continued) GENTAMICIN <=2 S LEVOFLOXACIN <=0.5 S MEROPENEM <=1 S PIPERACILLIN/TAZOBACTAM >64 R TRIMETHOPRIM/SULFAMETHOXAZOLE <=0.5/9.5 S TETRACYCLINE <=4 S TOBRAMYCIN <=2 S Unless otherwise specified, Testing Performed by: [address] [address] For Inquires, the Physician may contact the Microbiology department at [phone] ----- ------- Objective: Assessment: 1. Encephalopathy. 2. COVID-19 positive. 3. Fever. Resolved 4. 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 Patient is refusing left BKA Swab cultures positive for Enterobacter MDRO and Mary I&D cultures positive for MDRO Enterobacter ESR 54, CRP 149. 5. End-stage renal disease, on hemodialysis. 6. Seizure disorder. 7. Coronary artery disease. 8. Hypertension. 9. Diabetes. Plan: Plan of Care Continue IV Vanc,merrem.fluconazole Status post angiogram yesterday Awaiting left below-knee amputation tomorrow Continue local wound care as directed Continue supportive care Discussed with JUAN ALBERTO POSADAS MD Jun 08, 2021 10:32
--- NOTE | 2021-06-08 10:36 | PDOC ---
Provider Note Date of Service: DATE: 06/08/21 TIME: 10:28 Provider Note Provider Note Vascular surgery S: Patient up in chair, he is out of isolation now per RN. He has no complaints today. He underwent angiogram yesterday that showed some SFA disease however not flow-limiting. Of note in his history. He has end-stage renal disease on hemodialysis via a tunneled catheter. He reports Dr. Lipscomb at [facility] has placed several fistula/graft on his left arm that have all failed. He has a small healing old incision on his left inner thigh that when asked about he reports that they were looking for vein for fistula. He reports no surgeries to his right arm. He also denies any knee surgery ankle surgery or hardware placed in his left leg. O: Vital signs stable, in no apparent distress. Left foot dressing is clean and dry and intact and was just replaced by the nurse prior to my visit. He has a scab on his anterior knee overlying his k neecap. He has scattered superficial wounds diffusely along his lower leg. He is able to fully straighten and extend his knee. I looked at wound care pictures of left foot, there is nonsalvageable tissue along the distal a dehisced TMA, he has a large pressure looking ulcer to his anterior ankle. There is erythema and what appears to be drainage coming from the TMA site. A/P: Peripheral arterial disease Nonhealing transmetatarsal amputation with infection Recovered from Covid pneumonia ESRD on HD Plan for left below-knee amputation tomorrow, he should have adequate flow for healing. I discussed with the patient at length details of operation, risks/benefits, expected postop course, possible outcomes in regards to rehab and anticipated hospital stay. He exhibited understanding and all his questions were answered to satisfaction. He agreed to proceed as recommended. He will continue his IV antibiotics likely short-term postoperatively. In regards to his end-stage renal disease, he is currently dialyzing through a tunneled catheter. I discussed with the patient this is something we could discuss with him further once recovered from acute conditions in regards to a fistula or graft placement for long-term access. Any imaging regarding this can take place on outpatient basis. Justicifation of Admission Dx: Justifications for Admission: Justification of Admission Dx: N/A AVILA TAYLOR Jun 08, 2021 10:36
--- NOTE | 2021-06-08 11:39 | PDOC ---
DATE OF SERVICE DATE: 06/08/21 TIME: 11:36 SUBJECTIVE ROS No acute concerns Patient up in chair, he is out of isolation now per RN. OBJECTIVE Vital Signs Vital Signs Date Time Temp Pulse Resp B/P (MAP) Pulse Ox O2 Delivery O2 Flow Rate FiO2 06/08/21 08:59 79 115/61 06/08/21 08:05 Nasal Cannula 2.0 06/08/21 07:00 98.7 16 98 98.7 I & 0 Intake and Output 06/08/21 07:00 # Bowel Movements 3 PHYSICAL EXAM Physical Exam GENERAL:not in distress. HEENT: Both pupils are round and reacting. OM moist NECK: Supple. No JVP, LUNGS: Clear. HEART: S1, S2, regular. ABDOMEN: Soft, nontender. No organomegaly. EXTREMITIES: There are multiple superficial wounds on to the extremities. Muscle wasting present. full-length TMA incision has dehisced and some purulent drainage coming out NEUROLOGIC: Grossly normal DIAGNOSIS/ASSESSMENT Assessment & Plan ESRD - on HD MWF, currently no indication for dialysis today Anemia- Continue Retacrit COVID-19 positive.On RA Left foot infection. Currently on Abx. Vascular is recommending BKA. - scheduled for 06/09 Coronary artery disease. Hypertension. Diabetes. COMMENT/RELEVANT DATA Meds Current Medications Medications (Trade) Dose Ordered Sig/Babak Start Time Stop Time Status Last Admin Dose Admin Acetaminophen (Tylenol) 650 mg PRN Q4HRS PRN 05/26/21 03:30 05/27/21 03:29 DC Albumin Human 200 ml @ 200 mls/hr 1X PRN PRN 06/07/21 09:15 06/07/21 15:14 DC Aspirin (Ecotrin) 81 mg DAILY 05/26/21 14:00 06/08/21 08:58 81 MG Atorvastatin Calcium (Lipitor) 10 mg DAILY 05/26/21 14:00 06/08/21 08:59 10 MG Cyanocobalamin (Vitamin B-12) 1,000 mcg DAILY 05/27/21 09:00 06/08/21 08:58 1,000 MCG Dextrose (Dextrose 50%-Water Syringe) 12.5 gm PRN Q15MIN PRN 05/26/21 12:45 Duloxetine HCl (Cymbalta) 60 mg HS 05/26/21 21:00 06/07/21 21:21 60 MG Epoetin Catalino-epbx (RETACRIT for ESRD PTS) 10,000 unit MoWeFr@2100 05/26/21 21:00 06/07/21 21:22 10,000 UNIT EZETIMIBE (Zetia) 10 mg DAILY 05/26/21 14:00 06/08/21 08:59 10 MG Fentanyl Citrate (Fentanyl 2ml Vial) 100 mcg 1X ONCE 06/07/21 14:45 06/07/21 14:46 DC 06/07/21 15:28 100 MCG Fluconazole (Diflucan) 200 mg DAILY 06/02/21 09:00 06/08/21 08:59 200 MG Heparin Sodium/ Sodium Chloride (HEPARIN for ARTERIAL LINE FLUSH) 1,000 unit 1X ONCE 06/07/21 14:45 06/07/21 14:46 DC 06/07/21 15:10 1,000 UNIT Info (PHARMACY MONITORING -- do not chart) 1 each PRN DAILY PRN 06/07/21 09:15 UNV Insulin Human Lispro (HumaLOG) 0-5 UNITS TIDWMEALS 05/26/21 17:00 06/08/21 09:00 2 UNITS Iodixanol (Visipaque 320) 100 ml 1X ONCE 06/07/21 14:45 06/07/21 14:46 DC 06/07/21 15:10 50 ML Lactobacillus Rhamnosus (Culturelle) 1 cap BID 05/26/21 21:00 06/08/21 08:58 1 CAP Levetiracetam (Keppra) 500 mg BID 05/30/21 09:00 06/08/21 08:58 500 MG Lidocaine HCl (Lidocaine 1% 20ml Vial) 20 ml 1X ONCE 06/07/21 14:45 06/07/21 14:46 DC 06/07/21 15:11 10 ML Meropenem 500 mg/ Sodium Chloride 50 ml @ 100 mls/hr DAILY 06/02/21 09:00 06/08/21 08:58 100 MLS/HR Metoprolol Succinate (Toprol Xl) 50 mg DAILY 05/28/21 14:00 06/08/21 08:59 50 MG Midazolam HCl (Versed) 2 mg 1X ONCE 06/07/21 14:45 06/07/21 14:46 DC 06/07/21 15:18 1 MG Mirtazapine (Remeron) 45 mg QHS 05/26/21 21:00 06/07/21 21:21 45 MG Non-Formulary Medication (Icosapent Ethyl (Vascepa)) 2 cap BID 05/26/21 21:00 UNV Ondansetron HCl (Zofran) 4 mg PRN Q8HRS PRN 05/26/21 03:30 05/27/21 03:29 DC Pantoprazole Sodium (Protonix) 40 mg DAILYAC 05/26/21 14:00 06/08/21 08:59 40 MG Perflutren Protein Type A Microsphe (Optison) 0.66 mg 1X ONCE 05/31/21 08:15 05/31/21 08:16 DC Piperacillin Sod/ Tazobactam Sod (Zosyn Per Pharmacy) 1 each PRN DAILY PRN 05/26/21 01:30 Cancel Piperacillin Sod/ Tazobactam Sod 2.25 gm/Sodium Chloride 50 ml @ 100 mls/hr Q8HRS 05/26/21 08:00 06/02/21 08:27 DC 06/02/21 05:35 100 MLS/HR Piperacillin Sod/ Tazobactam Sod 3.375 gm/Sodium Chloride 50 ml @ 100 mls/hr 1X ONCE 05/26/21 02:15 05/26/21 02:44 DC 05/26/21 03:25 100 MLS/HR Pregabalin (Lyrica) 225 mg BID 05/26/21 14:00 06/08/21 08:58 225 MG Promethazine HCl (Phenergan) 25 mg PRN Q6HRS PRN 05/26/21 13:00 Sodium Hypochlorite (Dakin'S 1/4 Strength) 1 lópez BID 05/26/21 11:00 06/03/21 21:00 1 LÓPEZ Sodium Chloride 1,000 ml @ 400 mls/hr Q2H30M PRN 06/07/21 09:15 06/07/21 21:14 DC Sodium Chloride (Normal Saline Flush) 10 ml 1X PRN PRN 06/04/21 08:15 06/05/21 08:14 DC Topiramate (Topamax) 100 mg BID 05/26/21 14:00 06/08/21 08:59 100 MG Trazodone HCl (Desyrel) 50 mg QHS 05/26/21 21:00 06/06/21 23:47 50 MG Vancomycin HCl (Vanco Per Pharmacy) 1 each PRN DAILY PRN 05/26/21 03:15 06/05/21 16:02 1 EACH Vancomycin HCl (Vancomycin Random Level) 1 each 1X ONCE 06/02/21 06:00 06/02/21 06:01 DC 06/02/21 06:00 1 EACH Vancomycin HCl 1.75 gm/Sodium Chloride 500 ml @ 250 mls/hr 1X ONCE 05/26/21 06:00 05/26/21 07:59 DC 05/26/21 05:47 250 MLS/HR Vancomycin HCl 500 mg/Sodium Chloride 100 ml @ 100 mls/hr QMWF 06/04/21 16:00 06/07/21 16:39 100 MLS/HR Vitamin D (Vitamin D3) 1,000 unit DAILY 05/26/21 14:00 06/08/21 08:58 1,000 UNIT Lab Laboratory Tests Test 06/07/21 17:10 06/07/21 21:10 06/08/21 07:00 06/08/21 07:41 Glucose (Fingerstick) 159 mg/dL (70-99) 163 mg/dL (70-99) 165 mg/dL (70-99) Hemoglobin 9.8 g/dL (13.0-17.5) Hematocrit 32.6 % (39.0-53.0) Test 06/08/21 11:24 Glucose (Fingerstick) 174 mg/dL (70-99) Results All relevant outside records, renal labs, imaging studies, telemetry/EKG's were reviewed. Justicifation of Admission Dx: Justifications for Admission: Justification of Admission Dx: N/A JUSTIN LARKIN MD Jun 08, 2021 11:39
--- NOTE | 2021-06-08 13:13 | PDOC ---
TEJAL GUO SHEAR TENDER 06/08/21 1312: CARDIO Progress Notes Date and Time Date of Service 06/08/2021 Time of Evaluation 1250 Subjective Subjective: Other (asleep) Vitals Vitals Vital Signs Date Time Temp Pulse Resp B/P (MAP) Pulse Ox O2 Delivery O2 Flow Rate FiO2 06/08/21 08:59 79 115/61 06/08/21 08:05 Nasal Cannula 2.0 06/08/21 07:00 98.7 16 98 98.7 Weight Weight [ ] Input and Output Intake and Output Intake and Output 06/08/21 07:00 # Bowel Movements 3 Laboratory Labs Laboratory Tests Test 06/07/21 17:10 06/07/21 21:10 06/08/21 07:00 06/08/21 07:41 Glucose (Fingerstick) 159 mg/dL (70-99) 163 mg/dL (70-99) 165 mg/dL (70-99) Hemoglobin 9.8 g/dL (13.0-17.5) Hematocrit 32.6 % (39.0-53.0) Test 06/08/21 11:24 Glucose (Fingerstick) 174 mg/dL (70-99) Microbiology Micro Microbiology 05/28/21 Gram Stain - Final, Complete 05/28/21 Aerobic and Anaerobic Culture - Final, Complete 05/28/21 Antimicrobic Susceptibility - Final, Complete 05/26/21 Blood Culture - Final, Complete NO GROWTH AFTER 5 DAYS Review of Systems Constitutional: yes: other (CONFUSED) Physical Exam HEENT: Neck Supple W Full Motion Chest: Symmetric LUNGS: Other (diminished bases ) Heart: RRR (atrial flutter) Abdomen: Soft N/T Extremities: Other (left TMA- drsg intact ) Neurology: follow commands, other (asleep , arousable) Assessment Assessment 1. COVID +: afebrile: 2. Acute encephalopathy: resolved 3. ESRD on HD 4. PAFIB: rate controlled in atrial flutter. stable 5. CAD: s/p CABG. unclear if any recent w/u, clinically stable 6. HTN; controlled overall 7. DM2 8. S/P L TMA with dehiscence. L BKA recommended per vascular. Pt has agreed to LBKA. 9. Anemia: s/p transfusion. hgb stable. 10. Sepsis 11. Hx of mild CM: past EF at 45%. Limited echo with EF 30-35% 12. Mild to moderate , moderate to severe TR. Estimated PAP 60 mmHg. 13. Severe LLE PAD: Abdominal aortogram revealed no significant aortoiliac disease bilaterally and moderate diffuse 50 to 60% stenosis involving the SFA with one-vessel runoff bilaterally. Recommendations Continued metoprolol for rate control Poor candidate for anticoagulation with anemia and prior hx of SDH. Continue baby ASA for stroke prevention Secondary prevention measures Fluid offloading via HD Continue COVID treatment Supportive care. Outpt ischemic workup if none recent Plan for below-knee amputation on the left side and monitoring for wound healing of the stump if there is any significant concern could at that time consider high risk intervention with atherectomy and stenting as necessary Justicifation of Admission Dx: Justifications for Admission: Justification of Admission Dx: N/A CARRIE MCCLAIN MD 06/08/21 2013: CARDIO Progress Notes Plan Plan Patient seen and examined. Agree with above nurse practitioner note. Supportive care. Await amputation plans per vascular surgery. TEJAL GUO APRN Jun 08, 2021 13:12 CARRIE MCCLAIN MD Jun 08, 2021 20:13
[2021-06-08 15:00] VITALS: BP 116/71
--- NOTE | 2021-06-08 16:18 | NUR ---
Wound Care Pt is scheduled for BKA tomorrow with Vascular, will sign off care at this time.
[2021-06-08 19:00] VITALS: BP 97/58
[2021-06-08] MEDS: MIRTAZAPINE 15 MG TABLET PO SCH (21:00)
[2021-06-08] MEDS: traZODone 50 MG TABLET. PO SCH (21:18)
[2021-06-08] MEDS: DULoxetine HCL 30 MG CAPSULE.DR PO SCH (21:18)
[2021-06-08 23:00] VITALS: BP 97/59
[2021-06-09] MEDS ORDERED: fentaNYL PF VIAL 100 MCG/2 ML VIAL IVP PRN ×2 (06:00)
[2021-06-09] MEDS ORDERED: PROCHLORPERAZINE 10 MG/2 ML VIAL. IVP PRN (06:00)
[2021-06-09] MEDS ORDERED: HYDROmorphone 2 MG/ML INJ. IVP PRN (06:00)
[2021-06-09] MEDS ORDERED: MORPHINE SULFATE 2 MG/ML INJ. IVP PRN (06:00)
[2021-06-09] MEDS ORDERED: IV RINGERS,LACTATED 1000ML 1,000 ML IV SCH (06:00)
[2021-06-09 07:01] VITALS: BP 110/70
[2021-06-09] MEDS: PANTOPRAZOLE 40 MG TABLET.DR. PO SCH (07:30)
[2021-06-09] MEDS ORDERED: IV NORMAL SALINE 1000ML BAG 1,000 ML IV PRN ×2 (07:45)
[2021-06-09] MEDS ORDERED: DIALYSIS PATIENT. MC PRN ×2 (07:45)
[2021-06-09 07:56] LABS: HEMOGLOBIN 10.1 g/dL (13.0-17.5); RED BLOOD COUNT 3.79 x10^6/uL (4.30-5.70); RED CELL DISTRIBUTION WIDTH 29.1 % (11.5-14.5); WHITE BLOOD COUNT 11.1 x10^3/uL (4.0-11.0)
[2021-06-09 07:59] LABS: HEMATOCRIT 33.8 % (39.0-53.0)
[2021-06-09] MEDS: INSULIN LISPRO 300 UNITS/3 ML VIAL. SQ SCH ×3 (08:00→17:41)
[2021-06-09 08:05] LABS: CALCIUM 8.4 mg/dL (8.5-10.1); CREATININE 7.2 mg/dL (0.7-1.3); POTASSIUM 4.2 mmol/L (3.5-5.1)
[2021-06-09] MEDS: CYANOCOBALAMIN (VITAMIN B-12) 1,000 MCG TABLET. PO SCH (09:00)
[2021-06-09] MEDS: ATORVASTATIN CALCIUM 10 MG TABLET. PO SCH (09:00)
[2021-06-09] MEDS: SODIUM HYPOCHLORITE 0.125% 473 ML BOTTLE. TP SCH ×2 (09:00→20:23)
[2021-06-09] MEDS: levETIRAcetam 500 MG TABLET PO SCH ×2 (09:00→20:18)
[2021-06-09] MEDS: METOPROLOL SUCC 24HR ER 50 MG TAB.ER.24H. PO SCH (09:00)
[2021-06-09] MEDS: PREGABALIN 75 MG CAPSULE PO SCH ×2 (09:00→20:18)
[2021-06-09] MEDS: LACTOBACILLUS RHAMNOSUS GG 1 CAPSULE. PO SCH ×2 (09:00→20:17)
[2021-06-09] MEDS: EZETIMIBE 10 MG TABLET. PO SCH (09:00)
[2021-06-09] MEDS: CHOLECALCIFEROL (VITAMIN D3) 1,000 UNIT TABLET PO SCH (09:00)
[2021-06-09] MEDS: TOPIRAMATE 100 MG TABLET. PO SCH ×2 (09:00→20:18)
[2021-06-09] MEDS: ASPIRIN ENTERIC COATED 81 MG TABLET.DR. PO SCH (09:00)
[2021-06-09] MEDS: FLUCONAZOLE 100 MG TABLET. PO SCH (09:00)
--- NOTE | 2021-06-09 11:03 | NUR ---
SW following. Discussed with RN, pt getting BKA today. Therapy to work with pt after. SW will continue to follow.
--- NOTE | 2021-06-09 11:28 | PDOC ---
Provider Note Date of Service: DATE: 06/09/21 TIME: : Provider Note Provider Note Vascular surgery S: Patient seen with Dr. Richardson in dialysis. He was planned for left BKA today, however this was canceled per anesthesia who requested we do it on a nondialysis day. We discussed this with the patient. He had no current complaints. O: VSS, on dialysis. Left foot dressing clean dry and intact. Further Exam deferred. A/P: Peripheral arterial disease Nonhealing transmetatarsal amputation with infection Recovered from Covid pneumonia ESRD on HD Rescheduled L BKA for first available on a non dialysis day per anesthesia request, this will be Thursday 06/15. Dr. Richardson and I discussed this with the patient today, who exhibited understanding and agreed. I had lengthy discussion with him yesterday regarding plan in detail. All his questions were answered to satisfaction and he agreed. He will continue his IV antibiotics preop and likely short-term postoperatively. In regards to his end-stage renal disease, he is currently dialyzing through a tunneled catheter. I discussed with the patient this is something we could discuss with him further once recovered from acute conditions in regards to a fi stula or graft placement for long-term access. Any imaging regarding this can take place on outpatient basis. Justicifation of Admission Dx: Justifications for Admission: Justification of Admission Dx: N/A AVILA TAYLOR Jun 09, 2021 11:28
--- NOTE | 2021-06-09 11:35 | PDOC ---
DATE OF SERVICE DATE: 06/09/21 TIME: 11:33 SUBJECTIVE ROS No acute concerns Seen during dialysis OBJECTIVE Vital Signs Vital Signs Date Time Temp Pulse Resp B/P (MAP) Pulse Ox O2 Delivery O2 Flow Rate FiO2 06/09/21 08:00 Nasal Cannula 2.0 06/09/21 07:01 97.6 94 18 110/70 (83) 90 97.6 PHYSICAL EXAM Physical Exam GENERAL:not in distress. HEENT: Both pupils are round and reacting. OM moist NECK: Supple. No JVP, LUNGS: Clear. HEART: S1, S2, regular. ABDOMEN: Soft, nontender. No organomegaly. EXTREMITIES: There are multiple superficial wounds on to the extremities. Muscle wasting present. full-length TMA incision has dehisced and some purulent drainage coming out NEUROLOGIC: Grossly normal DIAGNOSIS/ASSESSMENT Assessment & Plan ESRD - on HD MWF, seen during dialysis, tolerating well. Continue as ordered. Colten PEREZ Anemia- Continue Retacrit COVID-19 positive.On RA Left foot infection. Currently on Abx. Vascular is recommending BKA. - he was scheduled for today. Rescheduled on a non dialysis day per anesthesia request. Now on 06/15 Coronary artery disease. Hypertension. Diabetes. COMMENT/RELEVANT DATA Meds Current Medications Medications (Trade) Dose Ordered Sig/Babak Start Time Stop Time Status Last Admin Dose Admin Acetaminophen (Tylenol) 650 mg PRN Q4HRS PRN 05/26/21 03:30 05/27/21 03:29 DC Albumin Human 200 ml @ 200 mls/hr 1X PRN PRN 06/07/21 09:15 06/07/21 15:14 DC Aspirin (Ecotrin) 81 mg DAILY 05/26/21 14:00 06/08/21 08:58 81 MG Atorvastatin Calcium (Lipitor) 10 mg DAILY 05/26/21 14:00 06/08/21 08:59 10 MG Cefazolin Sodium 1 gm/Sodium Chloride 500 ml @ 500 mls/hr 1X ONCE 06/09/21 06:00 06/09/21 07:00 DC Cyanocobalamin (Vitamin B-12) 1,000 mcg DAILY 05/27/21 09:00 06/08/21 08:58 1,000 MCG Dextrose (Dextrose 50%-Water Syringe) 12.5 gm PRN Q15MIN PRN 05/26/21 12:45 Duloxetine HCl (Cymbalta) 60 mg HS 05/26/21 21:00 06/08/21 21:18 60 MG Epoetin Catalino-epbx (RETACRIT for ESRD PTS) 10,000 unit MoWeFr@2100 05/26/21 21:00 06/07/21 21:22 10,000 UNIT EZETIMIBE (Zetia) 10 mg DAILY 05/26/21 14:00 06/08/21 08:59 10 MG Fentanyl Citrate (Fentanyl 2ml Vial) 50 mcg PRN Q5MIN PRN 06/09/21 06:00 06/09/21 19:00 Fluconazole (Diflucan) 200 mg DAILY 06/02/21 09:00 06/08/21 08:59 200 MG Heparin Sodium (Porcine) (Heparin Sodium) 10,000 unit STK-MED ONCE 06/07/21 14:15 06/08/21 13:38 DC Heparin Sodium/ Sodium Chloride 1,000 ml @ As Directed STK-MED ONCE 06/07/21 12:03 06/08/21 13:37 DC Heparin Sodium/ Sodium Chloride (HEPARIN for ARTERIAL LINE FLUSH) 1,000 unit 1X ONCE 06/07/21 14:45 06/07/21 14:46 DC 06/07/21 15:10 1,000 UNIT Hydromorphone HCl (Dilaudid) 0.5 mg PRN Q10MIN PRN 06/09/21 06:00 06/09/21 19:00 Info (PHARMACY MONITORING -- do not chart) 1 each PRN DAILY PRN 06/09/21 07:45 Insulin Human Lispro (HumaLOG) 0-5 UNITS TIDWMEALS 05/26/21 17:00 06/08/21 12:06 2 UNITS Iodixanol (Visipaque 320) 100 ml STK-MED ONCE 06/07/21 11:49 06/08/21 13:36 DC Lactobacillus Rhamnosus (Culturelle) 1 cap BID 05/26/21 21:00 06/08/21 21:18 1 CAP Levetiracetam (Keppra) 500 mg BID 05/30/21 09:00 06/08/21 21:18 500 MG Lidocaine HCl (Lidocaine 1% 20ml Vial) 20 ml STK-MED ONCE 06/07/21 12:03 06/08/21 13:37 DC Meropenem 500 mg/ Sodium Chloride 50 ml @ 100 mls/hr DAILY 06/02/21 09:00 06/08/21 08:58 100 MLS/HR Metoprolol Succinate (Toprol Xl) 50 mg DAILY 05/28/21 14:00 06/08/21 08:59 50 MG Midazolam HCl (Versed) 2 mg STK-MED ONCE 06/07/21 14:14 06/08/21 13:38 DC Mirtazapine (Remeron) 45 mg QHS 05/26/21 21:00 06/08/21 21:00 45 MG Morphine Sulfate (Morphine Sulfate) 1 mg PRN Q10MIN PRN 06/09/21 06:00 06/09/21 19:00 Non-Formulary Medication (Icosapent Ethyl (Vascepa)) 2 cap BID 05/26/21 21:00 UNV Ondansetron HCl (Zofran) 4 mg PRN Q8HRS PRN 05/26/21 03:30 05/27/21 03:29 DC Pantoprazole Sodium (Protonix) 40 mg DAILYAC 05/26/21 14:00 06/08/21 08:59 40 MG Perflutren Protein Type A Microsphe (Optison) 0.66 mg 1X ONCE 05/31/21 08:15 05/31/21 08:16 DC Piperacillin Sod/ Tazobactam Sod (Zosyn Per Pharmacy) 1 each PRN DAILY PRN 05/26/21 01:30 Cancel Piperacillin Sod/ Tazobactam Sod 2.25 gm/Sodium Chloride 50 ml @ 100 mls/hr Q8HRS 05/26/21 08:00 06/02/21 08:27 DC 06/02/21 05:35 100 MLS/HR Piperacillin Sod/ Tazobactam Sod 3.375 gm/Sodium Chloride 50 ml @ 100 mls/hr 1X ONCE 05/26/21 02:15 05/26/21 02:44 DC 05/26/21 03:25 100 MLS/HR Pregabalin (Lyrica) 225 mg BID 05/26/21 14:00 06/08/21 21:18 225 MG Prochlorperazine Edisylate (Compazine) 5 mg PACU PRN PRN 06/09/21 06:00 06/09/21 19:00 Promethazine HCl (Phenergan) 25 mg PRN Q6HRS PRN 05/26/21 13:00 Ringer's Solution 1,000 ml @ 30 mls/hr Q24H 06/09/21 06:00 06/09/21 17:59 Sodium Hypochlorite (Dakin'S 1/4 Strength) 1 lópez BID 05/26/21 11:00 06/08/21 21:00 1 LÓPEZ Sodium Chloride 1,000 ml @ 400 mls/hr Q2H30M PRN 06/09/21 07:45 06/09/21 19:44 Sodium Chloride (Normal Saline Flush) 10 ml 1X PRN PRN 06/04/21 08:15 06/05/21 08:14 DC Topiramate (Topamax) 100 mg BID 05/26/21 14:00 06/08/21 21:18 100 MG Trazodone HCl (Desyrel) 50 mg QHS 05/26/21 21:00 06/08/21 21:18 50 MG Vancomycin HCl (Vanco Per Pharmacy) 1 each PRN DAILY PRN 05/26/21 03:15 06/05/21 16:02 1 EACH Vancomycin HCl (Vancomycin Random Level) 1 each 1X ONCE 06/02/21 06:00 06/02/21 06:01 DC 06/02/21 06:00 1 EACH Vancomycin HCl 1.75 gm/Sodium Chloride 500 ml @ 250 mls/hr 1X ONCE 05/26/21 06:00 05/26/21 07:59 DC 05/26/21 05:47 250 MLS/HR Vancomycin HCl 500 mg/Sodium Chloride 100 ml @ 100 mls/hr QMWF 06/04/21 16:00 06/07/21 16:39 100 MLS/HR Vitamin D (Vitamin D3) 1,000 unit DAILY 05/26/21 14:00 06/08/21 08:58 1,000 UNIT Lab Laboratory Tests Test 06/08/21 17:05 06/08/21 20:40 06/09/21 05:50 06/09/21 07:53 Glucose (Fingerstick) 144 mg/dL (70-99) 197 mg/dL (70-99) 239 mg/dL (70-99) White Blood Count 11.1 x10^3/uL (4.0-11.0) Red Blood Count 3.79 x10^6/uL (4.30-5.70) Hemoglobin 10.1 g/dL (13.0-17.5) Hematocrit 33.8 % (39.0-53.0) Mean Corpuscular Volume 91 fL (79-100) Mean Corpuscular Hemoglobin 27 pg (25-35) Mean Corpuscular Hemoglobin Concent 30 g/dL (31-37) Red Cell Distribution Width 29.1 % (11.5-14.5) Platelet Count 185 x10^3/uL (140-400) Sodium Level 142 mmol/L (136-145) Potassium Level 4.2 mmol/L (3.5-5.1) Chloride Level 102 mmol/L (98-107) Carbon Dioxide Level 27 mmol/L (21-32) Anion Gap 13 (6-14) Blood Urea Nitrogen 34 mg/dL (8-26) Creatinine 7.2 mg/dL (0.7-1.3) Estimated GFR (Cockcroft-Gault) 8.0 Glucose Level 217 mg/dL (70-99) Calcium Level 8.4 mg/dL (8.5-10.1) Results All relevant outside records, renal labs, imaging studies, telemetry/EKG's were reviewed. Justicifation of Admission Dx: Justifications for Admission: Justification of Admission Dx: N/A JUSTIN LARKIN MD Jun 09, 2021 11:35
--- NOTE | 2021-06-09 12:49 | PN ---
DATE: 06/09/2021 SUBJECTIVE: The patient is resting, slightly propped up in bed, having his scheduled hemodialysis. He apparently was scheduled also for left below-knee amputation today, but apparently the vascular surgeon has cancelled the procedure today. PHYSICAL EXAMINATION: GENERAL: When I examined him this morning, he was resting, slightly propped up in bed, in no apparent respiratory distress, pale, but not jaundiced, cyanosed. No lymphadenopathy, no thyromegaly, no jugular venous distention. No limb edema. VITAL SIGNS: His heart rate was 94, blood pressure was 110/70, temperature 97.6, respiratory rate was 18 and oxygen saturation was 90% on 2 liters of oxygen. HEAD, EYES, EARS, NOSE AND THROAT: Normocephalic, atraumatic. NECK: Supple. HEART: Normal first and second heart sounds. No gallop or murmur. CHEST: Clear to auscultation. No crepitation or rhonchi. ABDOMEN: Distended, soft, nontender. NEUROLOGIC: He was awake, alert, responding appropriately. Cranial nerves intact. He moves upper extremities without difficulty. He has left forefoot amputation, dehisced wound. His intake and output are incompletely recorded. LABORATORY DATA: His lab work this morning showed a white cell count of 11,000, hemoglobin 10, hematocrit 34, MCV 91, and platelet count of 185,000. Serum sodium 142, potassium 4.2, chloride 102, bicarbonate 27, anion gap of 13, BUN 34, creatinine 7.2. Estimated GFR was 8, glucose 217 and calcium was 8.4. ASSESSMENT: 1. The patient is status post left transmetatarsal amputation with dehiscence and infection of the wound, a large eschar on the dorsum of the left foot. He was seen by the boiler erector as well as vascular surgeon and both recommended left below-knee amputation. He agreed and finally signed this consent to undergo the left below-knee amputation. He was supposed to have it done today; however, for some reason, the surgical team cancelled the procedure. 2. The patient had arterial Doppler ultrasound, which showed significant stenosis; however, an arteriogram was done 2 days ago showing no significant aortoiliac disease bilaterally. He has moderate diffuse 50-60% stenosis involving the superficial femoral artery with 1-vessel runoff bilaterally. 3. He has asymptomatic COVID-19 infection. He is now off isolation. 4. The patient has end-stage renal disease, on hemodialysis on Monday, Monday, Monday. 5. Type 1 diabetes mellitus with triopathy. 6. Atrial fibrillation, rate controlled, not anticoagulated. 7. Coronary artery disease, status post coronary artery bypass graft surgery. 8. Ischemic cardiomyopathy. 9. Hypertension. 10. Cerebrovascular accident. 11. Peripheral neuropathy. 12. History of chronic subdural hematoma that has apparently had resolved. 13. Seizure disorder. 14. Peripheral arterial disease, status post left transmetatarsal amputation. PLAN: To continue with IV antibiotic. Continue with wound care. Continue with hemodialysis as per Nephrology team. Continue to monitor blood sugar. Adjust insulin as needed. He is scheduled for left below-knee amputation. CHERYL/ERNESTO DR: Tyler TID: [id number]
[2021-06-09 15:00] VITALS: BP 95/54
[2021-06-09] MEDS: MEROPENEM 500 MG in IV NORMAL SALINE 50ML 50 ML IV SCH (16:04)
[2021-06-09] MEDS: VANCOMYCIN 500 MG in IV NORMAL SALINE 100ML 100 ML IV SCH (16:53)
[2021-06-09 19:00] VITALS: BP 97/67
[2021-06-09] MEDS: MIRTAZAPINE 15 MG TABLET PO SCH (20:17)
[2021-06-09] MEDS: traZODone 50 MG TABLET. PO SCH (20:18)
[2021-06-09] MEDS: DULoxetine HCL 30 MG CAPSULE.DR PO SCH (20:18)
[2021-06-09 23:00] VITALS: BP 129/62
[2021-06-09] MEDS: EPOETIN ALFA-EPBX for ESRD 20,000 UNIT/ML VIAL. SQ SCH (23:05)
[2021-06-10 07:00] VITALS: BP 108/38
[2021-06-10] MEDS: LACTOBACILLUS RHAMNOSUS GG 1 CAPSULE. PO SCH ×2 (08:43→21:58)
[2021-06-10] MEDS: MEROPENEM 500 MG in IV NORMAL SALINE 50ML 50 ML IV SCH (08:43)
[2021-06-10] MEDS: PANTOPRAZOLE 40 MG TABLET.DR. PO SCH (08:43)
[2021-06-10] MEDS: ASPIRIN ENTERIC COATED 81 MG TABLET.DR. PO SCH (08:43)
[2021-06-10] MEDS: CHOLECALCIFEROL (VITAMIN D3) 1,000 UNIT TABLET PO SCH (08:43)
[2021-06-10] MEDS: PREGABALIN 75 MG CAPSULE PO SCH ×2 (08:43→21:57)
[2021-06-10] MEDS: EZETIMIBE 10 MG TABLET. PO SCH (08:43)
[2021-06-10] MEDS: levETIRAcetam 500 MG TABLET PO SCH ×2 (08:44→21:56)
[2021-06-10] MEDS: FLUCONAZOLE 100 MG TABLET. PO SCH (08:44)
[2021-06-10] MEDS: METOPROLOL SUCC 24HR ER 50 MG TAB.ER.24H. PO SCH (08:44)
[2021-06-10] MEDS: ATORVASTATIN CALCIUM 10 MG TABLET. PO SCH (08:45)
[2021-06-10] MEDS: CYANOCOBALAMIN (VITAMIN B-12) 1,000 MCG TABLET. PO SCH (08:45)
[2021-06-10] MEDS: TOPIRAMATE 100 MG TABLET. PO SCH ×2 (08:46→21:57)
[2021-06-10] MEDS: INSULIN LISPRO 300 UNITS/3 ML VIAL. SQ SCH ×3 (08:46→18:17)
[2021-06-10] MEDS: SODIUM HYPOCHLORITE 0.125% 473 ML BOTTLE. TP SCH ×2 (08:47→21:00)
--- NOTE | 2021-06-10 09:00 | PDOC ---
Infectious Disease Note Subjective: Subjective Patient without complaints On room air Discussed with RN Vital Signs: Vital Signs Vital Signs Date Time Temp Pulse Resp B/P (MAP) Pulse Ox O2 Delivery O2 Flow Rate FiO2 06/10/21 08:44 80 108/38 06/10/21 07:00 97.6 16 99 Room Air 97.6 06/09/21 20:10 2.0 Physical Exam: PHYSICAL EXAM GENERAL: Alert awake oriented x3 male in no acute distress on nasal O2 HEENT: Both pupils are round and reacting. No conjunctival lesion. No lesion in the mouth. NECK: Supple. No JVP, no lymphadenopathy. LUNGS: Clear. HEART: S1, S2, regular. ABDOMEN: Soft, nontender. No organomegaly. EXTREMITIES: There are multiple superficial wounds on to the extremities. Muscle wasting present. Left foot reveals dehiscence of the amputation site. Surrounding Black eschar around the wound noted. Unhealthy necrotic base. Large area involved with gangrenous eschar on the dorsum of the foot. NEUROLOGIC: The patient is awake, try to say something, mumbles few words, occasional appropriate nodding. Medications: Inpatient Meds: Medications reviewed. Labs: Lab Laboratory Tests Test 06/09/21 11:57 06/09/21 16:40 06/09/21 20:32 06/10/21 07:58 Glucose (Fingerstick) 129 mg/dL (70-99) 225 mg/dL (70-99) 208 mg/dL (70-99) 196 mg/dL (70-99) Micro Micro RUN DATE: 05/29/21 [facility] LAB *LIVE* PAGE 1 RUN TIME: 112 Specimen Inquiry PATIENT: FER CHAUDHARY ACCT: [id number] LOC: [address] [place] [address] U: [id number] AGE/SX: 55/M ROOM: [facility] RE05/26/[address]: KAHLIL WADE MD : 1965 BED: 1 DIS: STATUS: ADM IN TLOC: SPEC #: [id number] CHERIE: 05/26/21 STATUS: RES REQ #: [id number] RECD: 05/27/[address]: KAHLIL WADE MD SOURCE: FOOT ENTR: 05/27/[address]: MACHELLE COPE MD SPDESC: NUBIA COLINDRES MD, ZHIPENG DPM ORDERED: CHIDI/SANDRA/MARICEL COMMENTS: LEFT FOOT SWAB Procedure Result GRAM STAIN Final Final GRAM NEGATIVE RODS:MANY SQUAMOUS EPI CELL:NONE SEEN PMN (WBCs):RARE Unless otherwise specified, Testing Performed by: [facility] [address] [place] [address] For Inquires, the Physician may contact the Microbiology department at [phone] ANAEROBIC-AEROBIC CULTURE Preliminary Preliminary MANY [ENTEROBACTER CLOACAE COMPLEX] on 05/28/21 at 1127 FEW [MARY ALBICANS] on 05/28/21 at 1127 ENTEROBACTER CLOACAE COMPLEX MARY ALBICANS ANTIMICROBIAL SUSCEPTIBILITY Preliminary Comment NEG JANI 56 ENTEROBACTER CLOACAE COMPLEX ANTIBIOTIC RESULT INTERPRETATION AMPICILLIN/SULBACTAM >16/8 R AMIKACIN <=16 S AMPICILLIN >16 R AMOXICILLIN/K CLAVULANATE >16/8 R AZTREONAM >16 R CEFTRIAXONE >32 R CEFTAZIDIME <=1 S CEFOTAXIME <=2 S CEFOXITIN <=8 R* CEFAZOLIN >16 R CIPROFLOXACIN <=0.25 S CEFEPIME <=2 S CEFUROXIME >16 R ERTAPENEM <=0.5 S RUN DATE: 05/29/21 [facility] LAB *LIVE* PAGE 2 RUN TIME: 112 Specimen Inquiry SPEC: [id number] PATIENT: FER CHAUDHARY [id number] (Continued) Procedure Result CONTINUED ON NEXT PAGE ------- ----- RUN DATE: 05/29/21 [facility] LAB *LIVE* PAGE 3 RUN TIME: 1127 Specimen Inquiry SPEC: [id number] PATIENT: FER CHAUDHARY [id number] (Continued) Procedure Result ANTIMICROBIAL SUSCEPTIBILITY Preliminary (continued) GENTAMICIN <=2 S LEVOFLOXACIN <=0.5 S MEROPENEM <=1 S PIPERACILLIN/TAZOBACTAM >64 R TRIMETHOPRIM/SULFAMETHOXAZOLE <=0.5/9.5 S TETRACYCLINE <=4 S TOBRAMYCIN <=2 S Unless otherwise specified, Testing Performed by: [address] [address] For Inquires, the Physician may contact the Microbiology department at [phone] Objective: Assessment: 1. Encephalopathy. Resolved 2. COVID-19 positive. On room air 3. Fever. Resolved 4. 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 Patient is refusing left BKA Swab cultures positive for Enterobacter MDRO and Mary I&D cultures positive for MDRO Enterobacter ESR 54, CRP 149. 5. End-stage renal disease, on hemodialysis. 6. Seizure disorder. 7. Coronary artery disease. 8. Hypertension. 9. Diabetes. Plan: Plan of Care Continue IV Vanc,merrem.fluconazole Will need to continue antibiotics post surgery at least for 1 day if hemodynamically stable Awaiting left below-knee amputation Continue local wound care as directed Continue supportive care Discussed with JUAN ALBERTO POSADAS MD Jun 10, 2021 09:00
--- NOTE | 2021-06-10 10:43 | PDOC ---
DATE OF SERVICE DATE: 06/10/21 TIME: 10:42 SUBJECTIVE ROS No acute concerns OBJECTIVE Vital Signs Vital Signs Date Time Temp Pulse Resp B/P (MAP) Pulse Ox O2 Delivery O2 Flow Rate FiO2 06/10/21 08:44 80 108/38 06/10/21 07:00 97.6 16 99 Room Air 97.6 06/09/21 20:10 2.0 I & 0 Intake and Output 06/10/21 07:00 Intake Total 0 ml Balance 0 ml Intake Oral 0 ml # Bowel Movements 2 PHYSICAL EXAM Physical Exam GENERAL:not in distress. HEENT: Both pupils are round and reacting. OM moist NECK: Supple. No JVP, LUNGS: Clear. HEART: S1, S2, regular. ABDOMEN: Soft, nontender. No organomegaly. EXTREMITIES: There are multiple superficial wounds on to the extremities. Muscle wasting present. full-length TMA incision has dehisced and some purulent drainage coming out NEUROLOGIC: Grossly normal DIAGNOSIS/ASSESSMENT Assessment & Plan ESRD - on HD MWF, Currently no indication for dialysis today Anemia- Continue Retacrit COVID-19 positive.On RA Left foot infection. Currently on Abx. Vascular is recommending BKA. - he was scheduled for today. Rescheduled on a non dialysis day per anesthesia request. Now on 06/15 Coronary artery disease. Hypertension. Diabetes. COMMENT/RELEVANT DATA Meds Current Medications Medications (Trade) Dose Ordered Sig/Babak Start Time Stop Time Status Last Admin Dose Admin Acetaminophen (Tylenol) 650 mg PRN Q4HRS PRN 05/26/21 03:30 05/27/21 03:29 DC Albumin Human 200 ml @ 200 mls/hr 1X PRN PRN 06/07/21 09:15 06/07/21 15:14 DC Aspirin (Ecotrin) 81 mg DAILY 05/26/21 14:00 06/10/21 08:43 81 MG Atorvastatin Calcium (Lipitor) 10 mg DAILY 05/26/21 14:00 06/10/21 08:45 10 MG Cefazolin Sodium 1 gm/Sodium Chloride 500 ml @ 500 mls/hr 1X ONCE 06/09/21 06:00 06/09/21 07:00 DC Cyanocobalamin (Vitamin B-12) 1,000 mcg DAILY 05/27/21 09:00 06/10/21 08:45 1,000 MCG Dextrose (Dextrose 50%-Water Syringe) 12.5 gm PRN Q15MIN PRN 05/26/21 12:45 Duloxetine HCl (Cymbalta) 60 mg HS 05/26/21 21:00 06/09/21 20:18 60 MG Epoetin Catalino-epbx (RETACRIT for ESRD PTS) 10,000 unit MoWeFr@2100 05/26/21 21:00 06/09/21 23:05 10,000 UNIT EZETIMIBE (Zetia) 10 mg DAILY 05/26/21 14:00 06/10/21 08:43 10 MG Fentanyl Citrate (Fentanyl 2ml Vial) 50 mcg PRN Q5MIN PRN 06/09/21 06:00 06/09/21 17:24 DC Fluconazole (Diflucan) 200 mg DAILY 06/02/21 09:00 06/10/21 08:44 200 MG Heparin Sodium (Porcine) (Heparin Sodium) 10,000 unit STK-MED ONCE 06/07/21 14:15 06/08/21 13:38 DC Heparin Sodium/ Sodium Chloride 1,000 ml @ As Directed STK-MED ONCE 06/07/21 12:03 06/08/21 13:37 DC Heparin Sodium/ Sodium Chloride (HEPARIN for ARTERIAL LINE FLUSH) 1,000 unit 1X ONCE 06/07/21 14:45 06/07/21 14:46 DC 06/07/21 15:10 1,000 UNIT Hydromorphone HCl (Dilaudid) 0.5 mg PRN Q10MIN PRN 06/09/21 06:00 06/09/21 17:24 DC Info (PHARMACY MONITORING -- do not chart) 1 each PRN DAILY PRN 06/09/21 07:45 Insulin Human Lispro (HumaLOG) 0-5 UNITS TIDWMEALS 05/26/21 17:00 06/10/21 08:46 2 UNITS Iodixanol (Visipaque 320) 100 ml STK-MED ONCE 06/07/21 11:49 06/08/21 13:36 DC Lactobacillus Rhamnosus (Culturelle) 1 cap BID 05/26/21 21:00 06/10/21 08:43 1 CAP Levetiracetam (Keppra) 500 mg BID 05/30/21 09:00 06/10/21 08:44 500 MG Lidocaine HCl (Lidocaine 1% 20ml Vial) 20 ml STK-MED ONCE 06/07/21 12:03 06/08/21 13:37 DC Meropenem 500 mg/ Sodium Chloride 50 ml @ 100 mls/hr DAILY 06/02/21 09:00 06/10/21 08:43 100 MLS/HR Metoprolol Succinate (Toprol Xl) 50 mg DAILY 05/28/21 14:00 06/10/21 08:44 50 MG Midazolam HCl (Versed) 2 mg STK-MED ONCE 06/07/21 14:14 06/08/21 13:38 DC Mirtazapine (Remeron) 45 mg QHS 05/26/21 21:00 06/09/21 20:17 45 MG Morphine Sulfate (Morphine Sulfate) 1 mg PRN Q10MIN PRN 06/09/21 06:00 06/09/21 17:24 DC Non-Formulary Medication (Icosapent Ethyl (Vascepa)) 2 cap BID 05/26/21 21:00 UNV Ondansetron HCl (Zofran) 4 mg PRN Q8HRS PRN 05/26/21 03:30 05/27/21 03:29 DC Pantoprazole Sodium (Protonix) 40 mg DAILYAC 05/26/21 14:00 06/10/21 08:43 40 MG Perflutren Protein Type A Microsphe (Optison) 0.66 mg 1X ONCE 05/31/21 08:15 05/31/21 08:16 DC Piperacillin Sod/ Tazobactam Sod (Zosyn Per Pharmacy) 1 each PRN DAILY PRN 05/26/21 01:30 Cancel Piperacillin Sod/ Tazobactam Sod 2.25 gm/Sodium Chloride 50 ml @ 100 mls/hr Q8HRS 05/26/21 08:00 06/02/21 08:27 DC 06/02/21 05:35 100 MLS/HR Piperacillin Sod/ Tazobactam Sod 3.375 gm/Sodium Chloride 50 ml @ 100 mls/hr 1X ONCE 05/26/21 02:15 05/26/21 02:44 DC 05/26/21 03:25 100 MLS/HR Pregabalin (Lyrica) 225 mg BID 05/26/21 14:00 06/10/21 08:43 225 MG Prochlorperazine Edisylate (Compazine) 5 mg PACU PRN PRN 06/09/21 06:00 06/09/21 17:25 DC Promethazine HCl (Phenergan) 25 mg PRN Q6HRS PRN 05/26/21 13:00 Ringer's Solution 1,000 ml @ 30 mls/hr Q24H 06/09/21 06:00 06/09/21 17:24 DC Sodium Hypochlorite (Dakin'S 1/4 Strength) 1 lópez BID 05/26/21 11:00 06/09/21 20:23 1 LÓPEZ Sodium Chloride 1,000 ml @ 400 mls/hr Q2H30M PRN 06/09/21 07:45 06/09/21 19:44 DC Sodium Chloride (Normal Saline Flush) 10 ml 1X PRN PRN 06/04/21 08:15 06/05/21 08:14 DC Topiramate (Topamax) 100 mg BID 05/26/21 14:00 06/10/21 08:46 100 MG Trazodone HCl (Desyrel) 50 mg QHS 05/26/21 21:00 06/09/21 20:18 50 MG Vancomycin HCl (Vanco Per Pharmacy) 1 each PRN DAILY PRN 05/26/21 03:15 06/05/21 16:02 1 EACH Vancomycin HCl (Vancomycin Random Level) 1 each 1X ONCE 06/02/21 06:00 06/02/21 06:01 DC 06/02/21 06:00 1 EACH Vancomycin HCl 1.75 gm/Sodium Chloride 500 ml @ 250 mls/hr 1X ONCE 05/26/21 06:00 05/26/21 07:59 DC 05/26/21 05:47 250 MLS/HR Vancomycin HCl 500 mg/Sodium Chloride 100 ml @ 100 mls/hr QMWF 06/04/21 16:00 06/09/21 16:53 100 MLS/HR Vitamin D (Vitamin D3) 1,000 unit DAILY 05/26/21 14:00 06/10/21 08:43 1,000 UNIT Lab Laboratory Tests Test 06/09/21 11:57 06/09/21 16:40 06/09/21 20:32 06/10/21 07:58 Glucose (Fingerstick) 129 mg/dL (70-99) 225 mg/dL (70-99) 208 mg/dL (70-99) 196 mg/dL (70-99) Results All relevant outside records, renal labs, imaging studies, telemetry/EKG's were reviewed. Justicifation of Admission Dx: Justifications for Admission: Justification of Admission Dx: N/A JUSTIN LARKIN MD Jun 10, 2021 10:43
[2021-06-10 11:00] VITALS: BP 112/65
--- NOTE | 2021-06-10 11:39 | PDOC ---
TEJAL GUO [employer] 06/10/21 1139: CARDIO Progress Notes Date and Time Date of Service 06/10/2021 Time of Evaluation 0930 Subjective Subjective: No Chest Pain, No shortness of breath, No Palpitations Vitals Vitals Vital Signs Date Time Temp Pulse Resp B/P (MAP) Pulse Ox O2 Delivery O2 Flow Rate FiO2 06/10/21 11:00 97.8 75 18 112/65 (81) 92 Room Air 97.8 06/09/21 20:10 2.0 Weight Weight [ ] Input and Output Intake and Output Intake and Output 06/10/21 07:00 Intake Total 0 ml Balance 0 ml Intake Oral 0 ml # Bowel Movements 2 Laboratory Labs Laboratory Tests Test 06/09/21 11:57 06/09/21 16:40 06/09/21 20:32 06/10/21 07:58 Glucose (Fingerstick) 129 mg/dL (70-99) 225 mg/dL (70-99) 208 mg/dL (70-99) 196 mg/dL (70-99) Microbiology Micro Microbiology 05/28/21 Gram Stain - Final, Complete 05/28/21 Aerobic and Anaerobic Culture - Final, Complete 05/28/21 Antimicrobic Susceptibility - Final, Complete 05/26/21 Blood Culture - Final, Complete NO GROWTH AFTER 5 DAYS Review of Systems Constitutional: yes: other (CONFUSED) Physical Exam HEENT: Neck Supple W Full Motion Chest: Symmetric LUNGS: Other (diminished bases ) Heart: RRR (atrial flutter) Abdomen: Soft N/T Extremities: Other (left TMA- drsg intact ) Neurology: follow commands, other (asleep , arousable) Assessment Assessment 1. COVID +: afebrile: 2. Acute encephalopathy: resolved 3. ESRD on HD 4. PAFIB: rate controlled in atrial flutter. stable 5. CAD: s/p CABG. unclear if any recent w/u, clinically stable 6. HTN; controlled overall 7. DM2 8. S/P L TMA with dehiscence. L BKA today per vascular 9. Anemia: s/p transfusion. hgb stable. 10. Sepsis 11. Hx of mild CM: past EF at 45%. Limited echo with EF 30-35% 12. Mild to moderate , moderate to severe TR. Estimated PAP 60 mmHg. 13. Severe LLE PAD: Abdominal aortogram revealed no significant aortoiliac disease bilaterally and moderate diffuse 50 to 60% stenosis involving the SFA with one-vessel runoff bilaterally. Recommendations Continued metoprolol for rate control Poor candidate for anticoagulation with anemia and prior hx of SDH. Continue baby ASA for stroke prevention Secondary prevention measures Fluid offloading via HD Continue COVID treatment Supportive care. Outpt ischemic workup if none recent Justicifation of Admission Dx: Justifications for Admission: Justification of Admission Dx: N/A CARRIE MCCLAIN MD 06/10/21 1732: CARDIO Progress Notes Plan Plan The patient was seen and interviewed as well as examined at the bedside. The chart was reviewed. The case was discussed. Agree with the plan of care. Surgery has been postponed to next Monday per anesthesia and vascular surgery service. Supportive care. We will follow along TEJAL GUO APRN Jun 10, 2021 11:39 CARRIE MCCLAIN MD Jun 10, 2021 17:32
--- NOTE | 2021-06-10 12:35 | PN ---
DATE: 06/10/2021 SUBJECTIVE: The patient is sitting comfortably in his recliner in no apparent respiratory distress. On questioning him, denied any complaint. Nursing staff did not voice any concern. Apparently, the letter of credit clerk is the one who consulted surgery yesterday, so I think some literature stating that surgery is not advisable on the day of dialysis and therefore, his surgery was postponed to be done on Thursday 06/15. PHYSICAL EXAMINATION: GENERAL: When I examined him, he was pale, but not jaundiced or cyanosed, no lymphadenopathy, no thyromegaly, no jugular venous distention. No limb edema. VITAL SIGNS: His heart rate was 75, blood pressure was 112/66, his temperature was 97.8, respiratory rate was 18 and oxygen saturation was 92% on room air. HEAD, EYES, EARS, NOSE AND THROAT: Normocephalic and atraumatic. NECK: Supple. HEART: Normal first and second heart sounds. No gallop, rub or murmur. CHEST: Clear to auscultation, no crepitation or rhonchi. ABDOMEN: Distended, soft, nontender. NEUROLOGIC: He is awake, alert, responding appropriately. Cranial nerves intact. He moves his upper extremities without difficulty. He is mostly bedbound, chair bound. His intake and output were incompletely recorded. LABORATORY DATA: His lab work as of yesterday showed a white cell count of 11,000, hemoglobin 10, hematocrit 33, MCV 91, and platelet count 95,000. His chemistry is variable. His blood sugar seems to be reasonably, although not optimally controlled. ASSESSMENT: 1. The patient is status post left transmetatarsal amputation with dehiscence and infection of the wound, large eschar on the dorsum of the left foot. He was seen by the green chain operator as well as the vascular surgeon and both recommended left below-knee amputation. He agreed and signed the consent to undergo the procedure. He was supposed to have it done yesterday. Unfortunately, the letter of credit clerk decide to consult the surgery. 2. The patient has arterial Doppler ultrasound, which showed significant stenosis; however, an arteriogram was done 3 days ago showing no significant aortoiliac disease bilaterally. He has moderate diffuse 50-60% stenosis involving the superficial femoral artery with 1-vessel runoff bilaterally. 3. He has asymptomatic COVID-19 infection. He is now off isolation. 4. The patient has end-stage renal disease, on hemodialysis Monday, Monday, Monday. 5. Type 1 diabetes mellitus with triopathy. 6. Atrial fibrillation, rate controlled, not anticoagulated. 7. Coronary artery disease, status post coronary artery bypass graft surgery. 8. Ischemic cardiomyopathy. 9. Hypertension. 10. Cerebrovascular accident. 11. Peripheral neuropathy. 12. History of chronic subdural hematoma that has apparently resolved. 13. Seizure disorder. 14. Peripheral arterial disease, status post left transmetatarsal amputation. PLAN: To continue IV antibiotic. Continue with wound care. Continue with hemodialysis as per Nephrology team. Continue to monitor his blood sugar and adjust insulin as needed. He apparently scheduled for left below-knee amputation on 06/15/2021. SHAMAR DR: Tyler TID: [id number]
--- NOTE | 2021-06-10 14:45 | NUR ---
Wound Care Wound Type/Assessment: See wound assessment. patient has a Left TMA dehisced surgical incision. Left TMA is dehisced centrally, with exposed bone, muscle and tendon, undermining present along proximal edges, wound base with shiny yellow slough and some pink/red tissue present. Sutures visualized at medial and lateral incision edges, with black eschar, minimal drainage. patient also has a left dorsal foot wound that is a dry and has a blackened crusty layer, no drainage noted. patient has a left lateral ankle wound that is blackened and crusty and had some creamy purulent drainage when cleaned. patient has a dry crusty wound to the left posterior heel. all wounds were cleaned, measured, pictured and redressed with the recommended dressings. Patient has some IAD to buttocks/coccyx area, this area was cleaned with cleansing wipes and Calazime cream applied at this time. Treatment Recommendations/Plan: Recommendations at this time for dressing until patient has surgery, Left TMA- Cleanse the wound then apply Dakins moistened gauze with an abd pad over wrap with Kerlix, change every other day. Recommendations to the left heel, left dorsal foot and left lateral ankle, cleanse the wounds then apply an abd pad over with Kerlix, change every other day. Offloading surface/device: n/a Recommended Referrals/Tests: patient scheduled for surgery Discharge Recommendations for dressings:wound care will continue to f/u for changes
[2021-06-10 15:00] VITALS: BP 129/76
[2021-06-10] MEDS: VANCOMYCIN PER PHARMACY MC PRN (17:20)
[2021-06-10 19:48] VITALS: BP 86/46
[2021-06-10] MEDS: MIRTAZAPINE 15 MG TABLET PO SCH (21:56)
[2021-06-10] MEDS: traZODone 50 MG TABLET. PO SCH (21:56)
[2021-06-10] MEDS: DULoxetine HCL 30 MG CAPSULE.DR PO SCH (21:58)
[2021-06-10 23:23] VITALS: BP 82/58
[2021-06-11 03:23] VITALS: BP 125/83
--- NOTE | 2021-06-11 06:21 | PDOC ---
Infectious Disease Note Subjective: Subjective Patient without complaints On room air Discussed with RN Vital Signs: Vital Signs Vital Signs Date Time Temp Pulse Resp B/P (MAP) Pulse Ox O2 Delivery O2 Flow Rate FiO2 06/11/21 03:23 97.7 80 20 125/83 (97) 98 Room Air 97.7 Physical Exam: PHYSICAL EXAM GENERAL: Alert awake oriented x3 male in no acute distress on nasal O2 HEENT: Both pupils are round and reacting. No conjunctival lesion. No lesion in the mouth. NECK: Supple. No JVP, no lymphadenopathy. LUNGS: Clear. HEART: S1, S2, regular. ABDOMEN: Soft, nontender. No organomegaly. EXTREMITIES: There are multiple superficial wounds on to the extremities. Muscle wasting present. Left foot reveals dehiscence of the amputation site. Surrounding Black eschar around the wound noted. Unhealthy necrotic base. Large area involved with gangrenous eschar on the dorsum of the foot. NEUROLOGIC: The patient is awake, try to say something, mumbles few words, occasional appropriate nodding. Medications: Inpatient Meds: Medications reviewed. Labs: Lab Laboratory Tests Test 06/10/21 07:58 06/10/21 11:57 06/10/21 17:17 06/10/21 20:30 Glucose (Fingerstick) 196 mg/dL (70-99) 147 mg/dL (70-99) 194 mg/dL (70-99) 217 mg/dL (70-99) Micro Micro RUN DATE: 05/29/21 [facility] LAB *LIVE* PAGE 1 RUN TIME: 1126 Specimen Inquiry PATIENT: EFR CHAUDHARY ACCT: [id number] LOC: [address] [place] [address] U: [id number] AGE/SX: 55/M ROOM: 582 RE05/26/[address]: KAHLIL WADE MD : 1965 BED: 1 DIS: STATUS: ADM IN TLOC: SPEC #: [id number] CHERIE: 05/26/21 STATUS: RES REQ #: [id number] RECD: 05/27/[address] [facility] [address]: KAHLIL WADE MD SOURCE: FOOT ENTR: 05/27/[address] [facility] [address]: MACHELLE COPE MD SPDESC: NUBIA COLINDRES MD, ZHIPENG DPM ORDERED: CHIDI/SANDRA/MARICEL COMMENTS: LEFT FOOT SWAB Procedure Result GRAM STAIN Final Final GRAM NEGATIVE RODS:MANY SQUAMOUS EPI CELL:NONE SEEN PMN (WBCs):RARE Unless otherwise specified, Testing Performed by: [address] [address] For Inquires, the Physician may contact the Microbiology department at [phone] ANAEROBIC-AEROBIC CULTURE Preliminary Preliminary MANY [ENTEROBACTER CLOACAE COMPLEX] on 05/28/21 at 1127 FEW [MARY ALBICANS] on 05/28/21 at 1127 ENTEROBACTER CLOACAE COMPLEX MARY ALBICANS ANTIMICROBIAL SUSCEPTIBILITY Preliminary Comment NEG JANI 56 ENTEROBACTER CLOACAE COMPLEX ANTIBIOTIC RESULT INTERPRETATION AMPICILLIN/SULBACTAM >16/8 R AMIKACIN <=16 S AMPICILLIN >16 R AMOXICILLIN/K CLAVULANATE >16/8 R AZTREONAM >16 R CEFTRIAXONE >32 R CEFTAZIDIME <=1 S CEFOTAXIME <=2 S CEFOXITIN <=8 R* CEFAZOLIN >16 R CIPROFLOXACIN <=0.25 S CEFEPIME <=2 S CEFUROXIME >16 R ERTAPENEM <=0.5 S RUN DATE: 05/29/21 [facility] LAB *LIVE* PAGE 2 RUN TIME: 1127 Specimen Inquiry SPEC: [id number] PATIENT: FER CHAUDHARY [id number] (Continued) -- Procedure Result CONTINUED ON NEXT PAGE RUN DATE: 05/29/21 [facility] LAB *LIVE* PAGE 3 RUN TIME: 1127 Specimen Inquiry SPEC: [id number] PATIENT: FER CHAUDHARY [id number] (Continued) Procedure Result ANTIMICROBIAL SUSCEPTIBILITY Preliminary (continued) GENTAMICIN <=2 S LEVOFLOXACIN <=0.5 S MEROPENEM <=1 S PIPERACILLIN/TAZOBACTAM >64 R TRIMETHOPRIM/SULFAMETHOXAZOLE <=0.5/9.5 S TETRACYCLINE <=4 S TOBRAMYCIN <=2 S Unless otherwise specified, Testing Performed by: [address] [address] For Inquires, the Physician may contact the Microbiology department at [phone] Objective: Assessment: 1. Encephalopathy. Resolved 2. COVID-19 positive. On room air 3. Fever. Resolved 4. 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 Patient is refusing left BKA Swab cultures positive for Enterobacter MDRO and Mary I&D cultures positive for MDRO Enterobacter ESR 54, CRP 149. 5. End-stage renal disease, on hemodialysis. 6. Seizure disorder. 7. Coronary artery disease. 8. Hypertension. 9. Diabetes. Plan: Plan of Care Cont current abx Will need to continue antibiotics post surgery at least for 2 day if hemodynamically stable Monitor labs Awaiting left below-knee amputation Continue local wound care as directed Continue supportive care Discussed with JUAN ALBERTO POSADAS MD Jun 11, 2021 06:21
[2021-06-11 07:00] VITALS: BP 140/86
[2021-06-11 07:15] LABS: CALCIUM 8.8 mg/dL (8.5-10.1); CREATININE 6.4 mg/dL (0.7-1.3); GFR 9.1; POTASSIUM 4.3 mmol/L (3.5-5.1)
[2021-06-11] MEDS: INSULIN LISPRO 300 UNITS/3 ML VIAL. SQ SCH ×3 (07:53→17:26)
[2021-06-11] MEDS: MEROPENEM 500 MG in IV NORMAL SALINE 50ML 50 ML IV SCH (07:58)
[2021-06-11] MEDS: LACTOBACILLUS RHAMNOSUS GG 1 CAPSULE. PO SCH ×2 (07:59→21:00)
[2021-06-11] MEDS: levETIRAcetam 500 MG TABLET PO SCH ×2 (07:59→21:36)
[2021-06-11] MEDS: FLUCONAZOLE 100 MG TABLET. PO SCH (07:59)
[2021-06-11] MEDS: PANTOPRAZOLE 40 MG TABLET.DR. PO SCH (07:59)
[2021-06-11] MEDS: PREGABALIN 75 MG CAPSULE PO SCH ×2 (07:59→21:36)
[2021-06-11] MEDS: TOPIRAMATE 100 MG TABLET. PO SCH ×2 (07:59→21:36)
[2021-06-11] MEDS: ASPIRIN ENTERIC COATED 81 MG TABLET.DR. PO SCH (07:59)
[2021-06-11] MEDS: EZETIMIBE 10 MG TABLET. PO SCH (07:59)
[2021-06-11] MEDS: CHOLECALCIFEROL (VITAMIN D3) 1,000 UNIT TABLET PO SCH (07:59)
[2021-06-11] MEDS: CYANOCOBALAMIN (VITAMIN B-12) 1,000 MCG TABLET. PO SCH (07:59)
[2021-06-11] MEDS: ATORVASTATIN CALCIUM 10 MG TABLET. PO SCH (08:00)
[2021-06-11] MEDS: SODIUM HYPOCHLORITE 0.125% 473 ML BOTTLE. TP SCH (08:05)
[2021-06-11] MEDS ORDERED: IV NORMAL SALINE 1000ML BAG 1,000 ML IV PRN (08:45)
[2021-06-11] MEDS ORDERED: 0.9 % SODIUM CHLORIDE 10 ML DISP.SYRIN. IV PRN ×2 (08:45)
[2021-06-11] MEDS ORDERED: DIALYSIS PATIENT. MC PRN ×2 (08:45)
[2021-06-11] MEDS: METOPROLOL SUCC 24HR ER 50 MG TAB.ER.24H. PO SCH (09:00)
--- NOTE | 2021-06-11 10:41 | NUR ---
SW following. Discussed with RN, BKA scheduled for 06/15/21. Therapy after BKA, and likely placement. SW will continue to follow.
--- NOTE | 2021-06-11 10:45 | PDOC ---
DATE OF SERVICE DATE: 06/11/21 TIME: 10:44 SUBJECTIVE ROS No acute concerns . Seen during dialysis, No complaints OBJECTIVE Vital Signs Vital Signs Date Time Temp Pulse Resp B/P (MAP) Pulse Ox O2 Delivery O2 Flow Rate FiO2 06/11/21 08:00 Room Air 06/11/21 07:00 98.0 79 18 140/86 (104) 98 98.0 I & 0 Intake and Output 06/11/21 07:00 Intake Total 60 ml Output Total 0 ml Balance 60 ml Intake Oral 60 ml Output Urine Total 0 ml # Voids 1 PHYSICAL EXAM Physical Exam GENERAL:not in distress. HEENT: Both pupils are round and reacting. OM moist NECK: Supple. No JVP, LUNGS: Clear. HEART: S1, S2, regular. ABDOMEN: Soft, nontender. No organomegaly. EXTREMITIES: There are multiple superficial wounds on to the extremities. Muscle wasting present. full-length TMA incision has dehisced and some purulent drainage coming out NEUROLOGIC: Grossly normal DIAGNOSIS/ASSESSMENT Assessment & Plan ESRD - on HD MWF, seen during treatment, tolerating well. Continue as ordered. Colten PEREZ Anemia- Continue Retacrit COVID-19 positive.On RA Left foot infection. Currently on Abx. Vascular is recommending BKA. - he was scheduled for 06/09 . Rescheduled on a non dialysis day per anesthesia for 06/15 Coronary artery disease. Hypertension. Diabetes. COMMENT/RELEVANT DATA Meds Current Medications Medications (Trade) Dose Ordered Sig/Babak Start Time Stop Time Status Last Admin Dose Admin Acetaminophen (Tylenol) 650 mg PRN Q4HRS PRN 05/26/21 03:30 05/27/21 03:29 DC Albumin Human 200 ml @ 200 mls/hr 1X PRN PRN 06/07/21 09:15 06/07/21 15:14 DC Aspirin (Ecotrin) 81 mg DAILY 05/26/21 14:00 06/11/21 07:59 81 MG Atorvastatin Calcium (Lipitor) 10 mg DAILY 05/26/21 14:00 06/11/21 08:00 10 MG Cefazolin Sodium 1 gm/Sodium Chloride 500 ml @ 500 mls/hr 1X ONCE 06/09/21 06:00 06/09/21 07:00 DC Cyanocobalamin (Vitamin B-12) 1,000 mcg DAILY 05/27/21 09:00 06/11/21 07:59 1,000 MCG Dextrose (Dextrose 50%-Water Syringe) 12.5 gm PRN Q15MIN PRN 05/26/21 12:45 Duloxetine HCl (Cymbalta) 60 mg HS 05/26/21 21:00 06/10/21 21:58 60 MG Epoetin Catalino-epbx (RETACRIT for ESRD PTS) 10,000 unit MoWeFr@2100 05/26/21 21:00 06/09/21 23:05 10,000 UNIT EZETIMIBE (Zetia) 10 mg DAILY 05/26/21 14:00 06/11/21 07:59 10 MG Fentanyl Citrate (Fentanyl 2ml Vial) 50 mcg PRN Q5MIN PRN 06/09/21 06:00 06/09/21 17:24 DC Fluconazole (Diflucan) 200 mg DAILY 06/02/21 09:00 06/11/21 07:59 200 MG Heparin Sodium (Porcine) (Heparin Sodium) 10,000 unit STK-MED ONCE 06/07/21 14:15 06/08/21 13:38 DC Heparin Sodium/ Sodium Chloride 1,000 ml @ As Directed STK-MED ONCE 06/07/21 12:03 06/08/21 13:37 DC Heparin Sodium/ Sodium Chloride (HEPARIN for ARTERIAL LINE FLUSH) 1,000 unit 1X ONCE 06/07/21 14:45 06/07/21 14:46 DC 06/07/21 15:10 1,000 UNIT Hydromorphone HCl (Dilaudid) 0.5 mg PRN Q10MIN PRN 06/09/21 06:00 06/09/21 17:24 DC Info (PHARMACY MONITORING -- do not chart) 1 each PRN DAILY PRN 06/11/21 08:45 Insulin Human Lispro (HumaLOG) 0-5 UNITS TIDWMEALS 05/26/21 17:00 06/10/21 18:17 2 UNITS Iodixanol (Visipaque 320) 100 ml STK-MED ONCE 06/07/21 11:49 06/08/21 13:36 DC Lactobacillus Rhamnosus (Culturelle) 1 cap BID 05/26/21 21:00 06/11/21 07:59 1 CAP Levetiracetam (Keppra) 500 mg BID 05/30/21 09:00 06/11/21 07:59 500 MG Lidocaine HCl (Lidocaine 1% 20ml Vial) 20 ml STK-MED ONCE 06/07/21 12:03 06/08/21 13:37 DC Meropenem 500 mg/ Sodium Chloride 50 ml @ 100 mls/hr DAILY 06/02/21 09:00 06/11/21 07:58 100 MLS/HR Metoprolol Succinate (Toprol Xl) 50 mg DAILY 05/28/21 14:00 06/10/21 08:44 50 MG Midazolam HCl (Versed) 2 mg STK-MED ONCE 06/07/21 14:14 06/08/21 13:38 DC Mirtazapine (Remeron) 45 mg QHS 05/26/21 21:00 06/10/21 21:56 45 MG Morphine Sulfate (Morphine Sulfate) 1 mg PRN Q10MIN PRN 06/09/21 06:00 06/09/21 17:24 DC Non-Formulary Medication (Icosapent Ethyl (Vascepa)) 2 cap BID 05/26/21 21:00 UNV Ondansetron HCl (Zofran) 4 mg PRN Q8HRS PRN 05/26/21 03:30 05/27/21 03:29 DC Pantoprazole Sodium (Protonix) 40 mg DAILYAC 05/26/21 14:00 06/11/21 07:59 40 MG Perflutren Protein Type A Microsphe (Optison) 0.66 mg 1X ONCE 05/31/21 08:15 05/31/21 08:16 DC Piperacillin Sod/ Tazobactam Sod (Zosyn Per Pharmacy) 1 each PRN DAILY PRN 05/26/21 01:30 Cancel Piperacillin Sod/ Tazobactam Sod 2.25 gm/Sodium Chloride 50 ml @ 100 mls/hr Q8HRS 05/26/21 08:00 06/02/21 08:27 DC 06/02/21 05:35 100 MLS/HR Piperacillin Sod/ Tazobactam Sod 3.375 gm/Sodium Chloride 50 ml @ 100 mls/hr 1X ONCE 05/26/21 02:15 05/26/21 02:44 DC 05/26/21 03:25 100 MLS/HR Pregabalin (Lyrica) 225 mg BID 05/26/21 14:00 06/11/21 07:59 225 MG Prochlorperazine Edisylate (Compazine) 5 mg PACU PRN PRN 06/09/21 06:00 06/09/21 17:25 DC Promethazine HCl (Phenergan) 25 mg PRN Q6HRS PRN 05/26/21 13:00 Ringer's Solution 1,000 ml @ 30 mls/hr Q24H 06/09/21 06:00 06/09/21 17:24 DC Sodium Hypochlorite (Dakin'S 1/4 Strength) 1 lópez QODAY 06/12/21 08:00 Sodium Chloride (Normal Saline Flush) 10 ml 1X PRN PRN 06/11/21 08:45 06/12/21 08:44 Topiramate (Topamax) 100 mg BID 05/26/21 14:00 06/11/21 07:59 100 MG Trazodone HCl (Desyrel) 50 mg QHS 05/26/21 21:00 06/10/21 21:56 50 MG Vancomycin HCl (Vanco Per Pharmacy) 1 each PRN DAILY PRN 05/26/21 03:15 06/10/21 17:20 1 EACH Vancomycin HCl (Vancomycin Random Level) 1 each 1X ONCE 06/02/21 06:00 06/02/21 06:01 DC 06/02/21 06:00 1 EACH Vancomycin HCl 1.75 gm/Sodium Chloride 500 ml @ 250 mls/hr 1X ONCE 05/26/21 06:00 05/26/21 07:59 DC 05/26/21 05:47 250 MLS/HR Vancomycin HCl 500 mg/Sodium Chloride 100 ml @ 100 mls/hr QMWF 06/04/21 16:00 06/09/21 16:53 100 MLS/HR Vitamin D (Vitamin D3) 1,000 unit DAILY 05/26/21 14:00 06/11/21 07:59 1,000 UNIT Lab Laboratory Tests Test 06/10/21 11:57 06/10/21 17:17 06/10/21 20:30 06/11/21 06:20 Glucose (Fingerstick) 147 mg/dL (70-99) 194 mg/dL (70-99) 217 mg/dL (70-99) Sodium Level 144 mmol/L (136-145) Potassium Level 4.3 mmol/L (3.5-5.1) Chloride Level 103 mmol/L (98-107) Carbon Dioxide Level 26 mmol/L (21-32) Anion Gap 15 (6-14) Blood Urea Nitrogen 34 mg/dL (8-26) Creatinine 6.4 mg/dL (0.7-1.3) Estimated GFR (Cockcroft-Gault) 9.1 Glucose Level 193 mg/dL (70-99) Calcium Level 8.8 mg/dL (8.5-10.1) Test 06/11/21 07:37 Glucose (Fingerstick) 170 mg/dL (70-99) Results All relevant outside records, renal labs, imaging studies, telemetry/EKG's were reviewed. Justicifation of Admission Dx: Justifications for Admission: Justification of Admission Dx: N/A JUSTIN LARKIN MD Jun 11, 2021 10:45
--- NOTE | 2021-06-11 11:10 | PN ---
DATE: 06/11/2021 SUBJECTIVE: The patient is resting, slightly propped up in bed, having his scheduled hemodialysis. On questioning him, denied any complaint. The nursing staff did not voice any concerns, stated that he had an eventful night. PHYSICAL EXAMINATION: GENERAL: When I examined him, he looked pale, but no jaundiced or cyanosed, no thyromegaly, no jugular venous distention. No limb edema. VITAL SIGNS: His heart rate was 79, blood pressure was 125/83, temperature 98, respiratory rate was 18, and oxygen saturation was 98% on room air. HEAD, EYES, EARS, NOSE AND THROAT: Normocephalic, atraumatic. NECK: Supple. HEART: Showed normal first and second heart sounds. No gallop, rub or murmur. CHEST: Clear to auscultation, no crepitation or rhonchi. ABDOMEN: Scaphoid, soft, nontender. NEUROLOGIC: He is awake, alert, responding appropriately. All cranial nerves intact. He moves upper extremities without difficulty. He is mostly bedbound, wheelchair bound. He has left transmetatarsal amputation with dehiscence of the wound. His intake and output are incompletely recorded. LABORATORY DATA: As of this morning showed a serum sodium 144, potassium 4.3, chloride 103, bicarbonate 26, anion gap of 15, BUN 34, creatinine 6.4, estimated GFR was 9 mL per minute, his glucose 183, calcium was 8.8. His white cell count was 11,000, hemoglobin 10, hematocrit 33, MCV 91, and platelet count of 185,000. ASSESSMENT: 1. The patient is status post left transmetatarsal amputation with dehiscence and infection of the wound and large eschar on the dorsum of the left foot. He was seen by the medication nurse as well as the vascular surgeon and both recommended left below-knee amputation. He agreed and signed the consent to undergo the procedure. He was supposed to have it done on Monday. Unfortunately, the can operator decided to cancel the surgery. He is scheduled for it to be done on Monday, 06/15. 2. The patient has arterial Doppler ultrasound, which showed that he has significant stenosis; however, an arteriogram was done 3 days ago, which showed that there is no significant aortoiliac disease bilaterally. He has moderate diffuse 50%-60% stenosis involving the superficial femoral artery with 1-vessel runoff bilaterally. 3. The patient has asymptomatic COVID-19 infection. He is now off isolation. 4. The patient has end-stage renal disease, on hemodialysis Monday, Monday, Monday. 5. Type 1 diabetes mellitus with triopathy. 6. Atrial fibrillation, rate controlled, not anticoagulated. 7. Coronary artery disease status post coronary artery bypass graft surgery. 8. Ischemic cardiomyopathy. 9. Hypertension. 10. Cerebrovascular accident. 11. Peripheral neuropathy. 12. History of chronic subdural hematoma that apparently has resolved. 13. Seizure disorder. 14. Peripheral arterial disease, status post left transmetatarsal amputation. PLAN: To continue with IV antibiotic. Continue with wound care. Continue with hemodialysis as per Nephrology team. Continue to monitor his blood sugar and adjust insulin as needed. He apparently scheduled for left below-knee amputation on 06/15/2021. CHERYL/DYAN DR: Tyler TID: [id number]
--- NOTE | 2021-06-11 12:32 | NUR ---
Patient was taken around 0855 this morning for dialysis. 3L taken off per magician/illusionist with vital signs stable. Patient returned back to his room around 1230 and is now resting comfortably with no concerns or complaints noted. Call light within reach. Will continue to monitor.
--- NOTE | 2021-06-11 12:58 | PDOC ---
TEJAL GUO ORANGE PEEL OPERATOR 06/11/21 1258: CARDIO Progress Notes Date and Time Date of Service 06/11/2021 Time of Evaluation 1220 Subjective Subjective: No Chest Pain, No shortness of breath, No Palpitations Vitals Vitals Vital Signs Date Time Temp Pulse Resp B/P (MAP) Pulse Ox O2 Delivery O2 Flow Rate FiO2 06/11/21 08:00 Room Air 06/11/21 07:00 98.0 79 18 140/86 (104) 98 98.0 Weight Weight [ ] Input and Output Intake and Output Intake and Output 06/11/21 07:00 Intake Total 60 ml Output Total 0 ml Balance 60 ml Intake Oral 60 ml Output Urine Total 0 ml # Voids 1 Laboratory Labs Laboratory Tests Test 06/10/21 17:17 06/10/21 20:30 06/11/21 06:20 06/11/21 07:37 Glucose (Fingerstick) 194 mg/dL (70-99) 217 mg/dL (70-99) 170 mg/dL (70-99) Sodium Level 144 mmol/L (136-145) Potassium Level 4.3 mmol/L (3.5-5.1) Chloride Level 103 mmol/L (98-107) Carbon Dioxide Level 26 mmol/L (21-32) Anion Gap 15 (6-14) Blood Urea Nitrogen 34 mg/dL (8-26) Creatinine 6.4 mg/dL (0.7-1.3) Estimated GFR (Cockcroft-Gault) 9.1 Glucose Level 193 mg/dL (70-99) Calcium Level 8.8 mg/dL (8.5-10.1) Test 06/11/21 12:28 Glucose (Fingerstick) 135 mg/dL (70-99) Microbiology Micro Microbiology 05/28/21 Gram Stain - Final, Complete 05/28/21 Aerobic and Anaerobic Culture - Final, Complete 05/28/21 Antimicrobic Susceptibility - Final, Complete 05/26/21 Blood Culture - Final, Complete NO GROWTH AFTER 5 DAYS Review of Systems Constitutional: yes: other (CONFUSED) Physical Exam HEENT: Neck Supple W Full Motion Chest: Symmetric LUNGS: Other (diminished bases ) Heart: RRR (atrial flutter) Abdomen: Soft N/T Extremities: Other (left TMA- drsg intact ) Neurology: follow commands, other (asleep , arousable) Assessment Assessment 1. COVID +: afebrile: 2. Acute encephalopathy: resolved 3. ESRD on HD 4. PAFIB: rate controlled in atrial flutter. stable 5. CAD: s/p CABG. unclear if any recent w/u, clinically stable 6. HTN; controlled overall 7. DM2 8. S/P L TMA with dehiscence. L BKA next week per vascular 9. Anemia: s/p transfusion. hgb stable. 10. Sepsis 11. Hx of mild CM: past EF at 45%. Limited echo with EF 30-35% 12. Mild to moderate , moderate to severe TR. Estimated PAP 60 mmHg. 13. Severe LLE PAD: Abdominal aortogram revealed no significant aortoiliac disease bilaterally and moderate diffuse 50 to 60% stenosis involving the SFA with one-vessel runoff bilaterally. Recommendations Continued metoprolol for rate control Poor candidate for anticoagulation with anemia and prior hx of SDH. Continue baby ASA for stroke prevention Secondary prevention measures Fluid offloading via HD Continue COVID treatment Supportive care. Outpt ischemic workup if none recent Justicifation of Admission Dx: Justifications for Admission: Justification of Admission Dx: N/A CARRIE MCCLAIN MD 06/11/21 1747: CARDIO Progress Notes Plan Plan Patient seen and examined. Agree with above nurse practitioner note. Supportive care for now. Awaiting surgery next week for L BKA. TEJAL GUO APRN Jun 11, 2021 12:58 CARRIE MCCLAIN MD Jun 11, 2021 17:47
[2021-06-11] MEDS: VANCOMYCIN 500 MG in IV NORMAL SALINE 100ML 100 ML IV SCH (14:47)
[2021-06-11 15:00] VITALS: BP 96/51
[2021-06-11 19:48] VITALS: BP 123/75
[2021-06-11] MEDS: DULoxetine HCL 30 MG CAPSULE.DR PO SCH (21:36)
[2021-06-11] MEDS: MIRTAZAPINE 15 MG TABLET PO SCH (21:36)
[2021-06-11] MEDS: traZODone 50 MG TABLET. PO SCH (21:36)
[2021-06-11] MEDS: EPOETIN ALFA-EPBX for ESRD 20,000 UNIT/ML VIAL. SQ SCH (21:57)
[2021-06-11 23:24] VITALS: BP 131/88
[2021-06-12 07:00] VITALS: BP 132/70
[2021-06-12] MEDS: SODIUM HYPOCHLORITE 0.125% 473 ML BOTTLE. TP SCH (08:00)
[2021-06-12] MEDS: FLUCONAZOLE 100 MG TABLET. PO SCH (10:14)
[2021-06-12] MEDS: levETIRAcetam 500 MG TABLET PO SCH ×2 (10:15→21:20)
[2021-06-12] MEDS: ASPIRIN ENTERIC COATED 81 MG TABLET.DR. PO SCH (10:15)
[2021-06-12] MEDS: LACTOBACILLUS RHAMNOSUS GG 1 CAPSULE. PO SCH ×2 (10:15→21:20)
[2021-06-12] MEDS: PREGABALIN 75 MG CAPSULE PO SCH ×2 (10:15→21:21)
[2021-06-12] MEDS: PANTOPRAZOLE 40 MG TABLET.DR. PO SCH (10:15)
[2021-06-12] MEDS: METOPROLOL SUCC 24HR ER 50 MG TAB.ER.24H. PO SCH (10:15)
[2021-06-12] MEDS: CHOLECALCIFEROL (VITAMIN D3) 1,000 UNIT TABLET PO SCH (10:15)
[2021-06-12] MEDS: TOPIRAMATE 100 MG TABLET. PO SCH ×2 (10:16→21:20)
[2021-06-12] MEDS: EZETIMIBE 10 MG TABLET. PO SCH (10:16)
[2021-06-12] MEDS: CYANOCOBALAMIN (VITAMIN B-12) 1,000 MCG TABLET. PO SCH (10:16)
[2021-06-12] MEDS: ATORVASTATIN CALCIUM 10 MG TABLET. PO SCH (10:16)
[2021-06-12] MEDS: MEROPENEM 500 MG in IV NORMAL SALINE 50ML 50 ML IV SCH (10:17)
--- NOTE | 2021-06-12 10:56 | PN ---
DATE: 06/12/2021 SUBJECTIVE: The patient is resting, slightly propped up in his recliner, in no apparent respiratory distress. He is awake, alert. On questioning him, he denied any complaint. Nursing staff did not voice any concerns, stated that he had an uneventful night. PHYSICAL EXAMINATION: GENERAL: When I examined him, he looked pale, but no jaundiced or cyanosed. No lymphadenopathy, no thyromegaly, no jugular venous distention. No limb edema. VITAL SIGNS: His heart rate was 83, blood pressure is 137/79, temperature was 97.5, respiratory rate was 19 and oxygen saturation was 97% on room air. HEAD, EYES, EARS, NOSE AND THROAT: Head was normocephalic, atraumatic. NECK: Supple. HEART: Showed normal first and second heart sounds. No gallop, rub or murmur. CHEST: Clear to auscultation, no crepitation or rhonchi. ABDOMEN: Distended, soft, nontender. NEUROLOGIC: He was awake, alert, responding appropriately. Cranial nerves intact. He moves extremities without difficulty. He has left forefoot amputation. He is mostly bedbound, wheelchair bound. His intake and output incompletely recorded. LABORATORY DATA: His most recent lab work showed hemoglobin of 10, hematocrit 33 with normal white cell count and platelets. His chemistry is variable, he is hemodialysis dependent. ASSESSMENT: 1. The patient is status post left transmetatarsal amputation with dehiscence and infection of the wound and large eschar on the dorsum of the left foot. He was seen by the telegrapher agent as well as the vascular surgeon and both recommended left below-knee amputation. He agreed and signed the consent to undergo the procedure. Unfortunately, the manager of change decided not to go ahead with the procedure on his last Monday. He is scheduled to have it done next 06/15/2021. 2. The patient has arterial Doppler ultrasound, which showed that he has significant stenosis; however an arteriogram was done, which showed that there is no significant aortoiliac disease bilaterally, he has moderate diffuse 50-60% stenosis involving the superficial femoral artery with 1-vessel runoff bilaterally. 3. The patient has asymptomatic COVID-19 infection. He is now off isolation. 4. The patient has end-stage renal disease, on hemodialysis Monday, Wednesmonday. 5. Type 1 diabetes mellitus with triopathy. 6. Atrial fibrillation, rate controlled, not anticoagulated. 7. Coronary artery disease status post coronary artery bypass graft surgery. 8. Ischemic cardiomyopathy. 9. Hypertension. 10. Cerebrovascular accident. 11. Peripheral neuropathy. 12. History of chronic subdural hematoma that apparently has resolved. 13. Seizure disorder. 14. Peripheral arterial disease, status post left transmetatarsal amputation. PLAN: To continue IV antibiotic. Continue with wound care. Continue with hemodialysis as per Nephrology team. Continue to monitor his blood sugar and adjust insulin as needed. CHERYL/MANJULA DR: Tyler TID: [id number]
[2021-06-12 11:00] VITALS: BP 91/64
[2021-06-12] MEDS: INSULIN LISPRO 300 UNITS/3 ML VIAL. SQ SCH ×3 (11:10→17:00)
--- NOTE | 2021-06-12 11:55 | PDOC ---
CARDIOLOGY PROGRESS NOTE SUBJECTIVE: No new events overnight. Patient has had surgery scheduled for Jun 15. No chest pain or dyspnea. OBJECTIVE: Vital Signs/I&O: Vital Signs Date Time Temp Pulse Resp B/P (MAP) Pulse Ox O2 Delivery O2 Flow Rate FiO2 06/12/21 10:15 83 132/70 06/12/21 07:00 97.8 19 97 Room Air 97.8 I & O 06/11/21 06/11/21 06/12/21 15:00 23:00 07:00 Intake Total 120 ml Output Total 1 ml Balance 119 ml Objective: GEN.: No apparent distress. Alert and oriented. HEENT: Head is normocephalic, atraumatic NECK: Supple. LUNGS: Clear to auscultation. HEART: RRR, S1, S2 present. Peripheral pulses intact ABDOMEN: Soft, nontender. Positive bowel sounds. EXTREMITIES: Popliteal pulse palpated. Non-palp pedal pulses. NEUROLOGIC: Normal speech, normal tone PSYCHIATRIC: Normal affect, normal mood. SKIN: No ulcerations CURRENT MEDICATIONS: Metoprolol XL 50mg daily ASA 81mg daily Atorvastatin 10mg daily DIAGNOSTIC TESTING: Hgb 10.1 Plts - 221 K 4.3 ASSESSMENT: 1. PAD with LLE infection, awaiting surgery. 2. ESRD 3. HTN 4. CAD 5. hx of bleeding and SDH 6. COVID 19 - resolved. 7. CAD s/p CABG PLAN: 1. Continue present meds. Doing well on current therapy. 2. For now continue to hold anticoagulation. Afib burden low and continue rate control for now. We will follow along. Justicifation of Admission Dx: Justifications for Admission: Justification of Admission Dx: N/A CARRIE MCCLAIN MD Jun 12, 2021 11:55
--- NOTE | 2021-06-12 12:26 | PDOC ---
DATE OF SERVICE DATE: 06/12/21 TIME: 12:25 SUBJECTIVE ROS No acute concerns . Denies N/V or SOB OBJECTIVE Vital Signs Vital Signs Date Time Temp Pulse Resp B/P (MAP) Pulse Ox O2 Delivery O2 Flow Rate FiO2 06/12/21 10:15 83 132/70 06/12/21 07:00 97.8 19 97 Room Air 97.8 I & 0 Intake and Output 06/12/21 07:00 Intake Total 120 ml Output Total 1 ml Balance 119 ml Intake Oral 120 ml Output Urine Total 1 ml # Bowel Movements 1 PHYSICAL EXAM Physical Exam GENERAL:not in distress. HEENT: Both pupils are round and reacting. OM moist NECK: Supple. No JVP, LUNGS: Clear. HEART: S1, S2, regular. ABDOMEN: Soft, nontender. No organomegaly. EXTREMITIES: There are multiple superficial wounds on to the extremities. Muscle wasting present. full-length TMA incision has dehisced and some purulent drainage coming out NEUROLOGIC: Grossly normal DIAGNOSIS/ASSESSMENT Assessment & Plan ESRD - on HD MWF, No indication for dialysis today Anemia- Continue Retacrit COVID-19 positive.On RA Left foot infection. Currently on Abx. Vascular is recommending BKA. - he was scheduled for 06/09 . Rescheduled on a non dialysis day per anesthesia for 06/15 Coronary artery disease. Hypertension. Diabetes. COMMENT/RELEVANT DATA Meds Current Medications Medications (Trade) Dose Ordered Sig/Babak Start Time Stop Time Status Last Admin Dose Admin Acetaminophen (Tylenol) 650 mg PRN Q4HRS PRN 05/26/21 03:30 05/27/21 03:29 DC Albumin Human 200 ml @ 200 mls/hr 1X PRN PRN 06/07/21 09:15 06/07/21 15:14 DC Aspirin (Ecotrin) 81 mg DAILY 05/26/21 14:00 06/12/21 10:15 81 MG Atorvastatin Calcium (Lipitor) 10 mg DAILY 05/26/21 14:00 06/12/21 10:16 10 MG Cefazolin Sodium 1 gm/Sodium Chloride 500 ml @ 500 mls/hr 1X ONCE 06/09/21 06:00 06/09/21 07:00 DC Cyanocobalamin (Vitamin B-12) 1,000 mcg DAILY 05/27/21 09:00 06/12/21 10:16 1,000 MCG Dextrose (Dextrose 50%-Water Syringe) 12.5 gm PRN Q15MIN PRN 05/26/21 12:45 Duloxetine HCl (Cymbalta) 60 mg HS 05/26/21 21:00 06/11/21 21:36 60 MG Epoetin Catalino-epbx (RETACRIT for ESRD PTS) 10,000 unit MoWeFr@2100 05/26/21 21:00 06/11/21 21:57 10,000 UNIT EZETIMIBE (Zetia) 10 mg DAILY 05/26/21 14:00 06/12/21 10:16 10 MG Fentanyl Citrate (Fentanyl 2ml Vial) 50 mcg PRN Q5MIN PRN 06/09/21 06:00 06/09/21 17:24 DC Fluconazole (Diflucan) 200 mg DAILY 06/02/21 09:00 06/12/21 10:14 200 MG Heparin Sodium (Porcine) (Heparin Sodium) 10,000 unit STK-MED ONCE 06/07/21 14:15 06/08/21 13:38 DC Heparin Sodium/ Sodium Chloride 1,000 ml @ As Directed STK-MED ONCE 06/07/21 12:03 06/08/21 13:37 DC Heparin Sodium/ Sodium Chloride (HEPARIN for ARTERIAL LINE FLUSH) 1,000 unit 1X ONCE 06/07/21 14:45 06/07/21 14:46 DC 06/07/21 15:10 1,000 UNIT Hydromorphone HCl (Dilaudid) 0.5 mg PRN Q10MIN PRN 06/09/21 06:00 06/09/21 17:24 DC Info (PHARMACY MONITORING -- do not chart) 1 each PRN DAILY PRN 06/11/21 08:45 Insulin Human Lispro (HumaLOG) 0-5 UNITS TIDWMEALS 05/26/21 17:00 06/12/21 11:10 3 UNITS Iodixanol (Visipaque 320) 100 ml STK-MED ONCE 06/07/21 11:49 06/08/21 13:36 DC Lactobacillus Rhamnosus (Culturelle) 1 cap BID 05/26/21 21:00 06/12/21 10:15 1 CAP Levetiracetam (Keppra) 500 mg BID 05/30/21 09:00 06/12/21 10:15 500 MG Lidocaine HCl (Lidocaine 1% 20ml Vial) 20 ml STK-MED ONCE 06/07/21 12:03 06/08/21 13:37 DC Meropenem 500 mg/ Sodium Chloride 50 ml @ 100 mls/hr DAILY 06/02/21 09:00 06/12/21 10:17 100 MLS/HR Metoprolol Succinate (Toprol Xl) 50 mg DAILY 05/28/21 14:00 06/12/21 10:15 50 MG Midazolam HCl (Versed) 2 mg STK-MED ONCE 06/07/21 14:14 06/08/21 13:38 DC Mirtazapine (Remeron) 45 mg QHS 05/26/21 21:00 06/11/21 21:36 45 MG Morphine Sulfate (Morphine Sulfate) 1 mg PRN Q10MIN PRN 06/09/21 06:00 06/09/21 17:24 DC Non-Formulary Medication (Icosapent Ethyl (Vascepa)) 2 cap BID 05/26/21 21:00 UNV Ondansetron HCl (Zofran) 4 mg PRN Q8HRS PRN 05/26/21 03:30 05/27/21 03:29 DC Pantoprazole Sodium (Protonix) 40 mg DAILYAC 05/26/21 14:00 06/12/21 10:15 40 MG Perflutren Protein Type A Microsphe (Optison) 0.66 mg 1X ONCE 05/31/21 08:15 05/31/21 08:16 DC Piperacillin Sod/ Tazobactam Sod (Zosyn Per Pharmacy) 1 each PRN DAILY PRN 05/26/21 01:30 Cancel Piperacillin Sod/ Tazobactam Sod 2.25 gm/Sodium Chloride 50 ml @ 100 mls/hr Q8HRS 05/26/21 08:00 06/02/21 08:27 DC 06/02/21 05:35 100 MLS/HR Piperacillin Sod/ Tazobactam Sod 3.375 gm/Sodium Chloride 50 ml @ 100 mls/hr 1X ONCE 05/26/21 02:15 05/26/21 02:44 DC 05/26/21 03:25 100 MLS/HR Pregabalin (Lyrica) 225 mg BID 05/26/21 14:00 06/12/21 10:15 225 MG Prochlorperazine Edisylate (Compazine) 5 mg PACU PRN PRN 06/09/21 06:00 06/09/21 17:25 DC Promethazine HCl (Phenergan) 25 mg PRN Q6HRS PRN 05/26/21 13:00 Ringer's Solution 1,000 ml @ 30 mls/hr Q24H 06/09/21 06:00 06/09/21 17:24 DC Sodium Hypochlorite (Dakin'S 1/4 Strength) 1 lópez QODAY 06/12/21 08:00 Sodium Chloride (Normal Saline Flush) 10 ml 1X PRN PRN 06/11/21 08:45 06/12/21 08:44 DC Topiramate (Topamax) 100 mg BID 05/26/21 14:00 06/12/21 10:16 100 MG Trazodone HCl (Desyrel) 50 mg QHS 05/26/21 21:00 06/11/21 21:36 50 MG Vancomycin HCl (Vanco Per Pharmacy) 1 each PRN DAILY PRN 05/26/21 03:15 06/10/21 17:20 1 EACH Vancomycin HCl (Vancomycin Random Level) 1 each 1X ONCE 06/14/21 06:00 06/14/21 06:01 Vancomycin HCl 1.75 gm/Sodium Chloride 500 ml @ 250 mls/hr 1X ONCE 05/26/21 06:00 05/26/21 07:59 DC 05/26/21 05:47 250 MLS/HR Vancomycin HCl 500 mg/Sodium Chloride 100 ml @ 100 mls/hr QMWF 06/04/21 16:00 06/11/21 14:47 100 MLS/HR Vitamin D (Vitamin D3) 1,000 unit DAILY 05/26/21 14:00 06/12/21 10:15 1,000 UNIT Lab Laboratory Tests Test 06/11/21 12:28 06/11/21 16:44 06/11/21 20:15 06/12/21 07:56 Glucose (Fingerstick) 135 mg/dL (70-99) 163 mg/dL (70-99) 123 mg/dL (70-99) 210 mg/dL (70-99) Test 06/12/21 12:11 Glucose (Fingerstick) 215 mg/dL (70-99) Results All relevant outside records, renal labs, imaging studies, telemetry/EKG's were reviewed. Justicifation of Admission Dx: Justifications for Admission: Justification of Admission Dx: N/A JUSTIN LARKIN MD Jun 12, 2021 12:26
[2021-06-12 15:00] VITALS: BP 119/83
[2021-06-12 19:00] VITALS: BP 89/53
[2021-06-12] MEDS: traZODone 50 MG TABLET. PO SCH (21:20)
[2021-06-12] MEDS: DULoxetine HCL 30 MG CAPSULE.DR PO SCH (21:20)
[2021-06-12] MEDS: MIRTAZAPINE 15 MG TABLET PO SCH (21:20)
[2021-06-12 23:00] VITALS: BP 111/71
[2021-06-13 03:00] VITALS: BP 104/58
[2021-06-13 07:00] VITALS: BP 106/71
[2021-06-13] MEDS: levETIRAcetam 500 MG TABLET PO SCH ×2 (08:55→22:31)
[2021-06-13] MEDS: PREGABALIN 75 MG CAPSULE PO SCH ×2 (08:55→22:30)
[2021-06-13] MEDS: FLUCONAZOLE 100 MG TABLET. PO SCH (08:56)
[2021-06-13] MEDS: CHOLECALCIFEROL (VITAMIN D3) 1,000 UNIT TABLET PO SCH (08:56)
[2021-06-13] MEDS: ATORVASTATIN CALCIUM 10 MG TABLET. PO SCH (08:56)
[2021-06-13] MEDS: ASPIRIN ENTERIC COATED 81 MG TABLET.DR. PO SCH (08:56)
[2021-06-13] MEDS: LACTOBACILLUS RHAMNOSUS GG 1 CAPSULE. PO SCH ×2 (08:56→22:31)
[2021-06-13] MEDS: PANTOPRAZOLE 40 MG TABLET.DR. PO SCH (08:56)
[2021-06-13] MEDS: CYANOCOBALAMIN (VITAMIN B-12) 1,000 MCG TABLET. PO SCH (08:57)
[2021-06-13] MEDS: METOPROLOL SUCC 24HR ER 50 MG TAB.ER.24H. PO SCH (08:57)
[2021-06-13] MEDS: TOPIRAMATE 100 MG TABLET. PO SCH ×2 (08:57→22:30)
[2021-06-13] MEDS: EZETIMIBE 10 MG TABLET. PO SCH (08:57)
[2021-06-13] MEDS: MEROPENEM 500 MG in IV NORMAL SALINE 50ML 50 ML IV SCH (08:58)
[2021-06-13] MEDS: INSULIN LISPRO 300 UNITS/3 ML VIAL. SQ SCH ×3 (09:09→18:08)
--- NOTE | 2021-06-13 10:58 | PN ---
DATE: 06/13/2021 SUBJECTIVE: The patient is resting, slightly propped up in bed, in no apparent distress, awake, alert. On questioning him, he denied any complaint. The nursing staff did not voice any concerns that he had an eventful night. PHYSICAL EXAMINATION: GENERAL: When I examined him, he was pale, not jaundiced, cyanosed, no lymphadenopathy, no thyromegaly, no jugular venous distention. No limb edema. VITAL SIGNS: His heart rate was 69, blood pressure is 106/71, temperature 97.8, respiratory rate was 18 and oxygen saturation was 94%. NEUROLOGIC: The rest of clinical exam stable. He has left transmetatarsal amputation with dehiscence of the wound. LABORATORY DATA: His intake and output are incompletely recorded. His most recent hemoglobin was 10, hematocrit 33. His blood sugar seems to be reasonably, although not optimally controlled. His chemistry is variable as he is hemodialysis dependent. ASSESSMENT: 1. The patient is status post left transmetatarsal amputation with dehiscence and infection of the wound and large eschar on the dorsum of the left foot. He is scheduled for a left below-knee amputation on 06/15/2021. 2. The patient had arterial Doppler ultrasound showed that he has significant stenosis; however arteriogram was done, which showed that there is no significant aortoiliac disease bilaterally. He has moderate diffuse 50-60% stenosis involving superficial femoral artery with 1-vessel runoff bilaterally. 3. The patient has asymptomatic COVID-19 infection. He is now off isolation. 4. The patient has end-stage renal disease, on hemodialysis Monday, Monday, Monday. 5. Type 1 diabetes mellitus with multiple complications. 6. Atrial fibrillation, rate controlled, not anticoagulated. 7. Coronary artery disease status post coronary artery bypass graft surgery. 8. Ischemic cardiomyopathy. 9. Hypertension. 10. Cerebrovascular accident. 11. Peripheral neuropathy. 12. History of chronic subdural hematoma that apparently has resolved. 13. Seizure disorder. 14. Peripheral arterial disease, status post left transmetatarsal amputation. PLAN: 1. To continue IV antibiotic. 2. Continue with wound care. 3. Continue with hemodialysis as per Nephrology team. 4. Continue to monitor his blood sugar and adjust insulin as needed. 5. The patient is scheduled for left below-knee amputation on Monday06/15/2021. AMM/PRA DR: Tyler TID: [id number]
[2021-06-13 11:00] VITALS: BP 112/77
--- NOTE | 2021-06-13 12:22 | PDOC ---
DATE OF SERVICE DATE: 06/13/21 TIME: 12:21 SUBJECTIVE ROS No acute concerns . Denies N/V or SOB OBJECTIVE Vital Signs Vital Signs Date Time Temp Pulse Resp B/P (MAP) Pulse Ox O2 Delivery O2 Flow Rate FiO2 06/13/21 08:57 69 106/71 06/13/21 07:00 97.8 18 94 Room Air 97.8 I & 0 Intake and Output 06/13/21 07:00 Intake Total 620 ml Balance 620 ml Intake Oral 620 ml # Voids 2 # Bowel Movements 4 PHYSICAL EXAM Physical Exam GENERAL:not in distress. HEENT: Both pupils are round and reacting. OM moist NECK: Supple. No JVP, LUNGS: Clear. HEART: S1, S2, regular. ABDOMEN: Soft, nontender. No organomegaly. EXTREMITIES: There are multiple superficial wounds on to the extremities. Muscle wasting present. full-length TMA incision has dehisced and some purulent drainage coming out NEUROLOGIC: Grossly normal DIAGNOSIS/ASSESSMENT Assessment & Plan ESRD - on HD MWF, No indication for dialysis today Anemia- Continue Retacrit COVID-19 positive.On RA Left foot infection. Currently on Abx. Vascular is recommending BKA. - he was scheduled for 06/09 . Rescheduled on a non dialysis day per anesthesia for 06/15 Coronary artery disease. Hypertension. Diabetes. COMMENT/RELEVANT DATA Meds Current Medications Medications (Trade) Dose Ordered Sig/Babak Start Time Stop Time Status Last Admin Dose Admin Acetaminophen (Tylenol) 650 mg PRN Q4HRS PRN 05/26/21 03:30 05/27/21 03:29 DC Albumin Human 200 ml @ 200 mls/hr 1X PRN PRN 06/07/21 09:15 06/07/21 15:14 DC Aspirin (Ecotrin) 81 mg DAILY 05/26/21 14:00 06/13/21 08:56 81 MG Atorvastatin Calcium (Lipitor) 10 mg DAILY 05/26/21 14:00 06/13/21 08:56 10 MG Cefazolin Sodium 1 gm/Sodium Chloride 500 ml @ 500 mls/hr 1X ONCE 06/09/21 06:00 06/09/21 07:00 DC Cyanocobalamin (Vitamin B-12) 1,000 mcg DAILY 05/27/21 09:00 06/13/21 08:57 1,000 MCG Dextrose (Dextrose 50%-Water Syringe) 12.5 gm PRN Q15MIN PRN 05/26/21 12:45 Duloxetine HCl (Cymbalta) 60 mg HS 05/26/21 21:00 06/12/21 21:20 60 MG Epoetin Catalino-epbx (RETACRIT for ESRD PTS) 10,000 unit MoWeFr@2100 05/26/21 21:00 06/11/21 21:57 10,000 UNIT EZETIMIBE (Zetia) 10 mg DAILY 05/26/21 14:00 06/13/21 08:57 10 MG Fentanyl Citrate (Fentanyl 2ml Vial) 50 mcg PRN Q5MIN PRN 06/09/21 06:00 06/09/21 17:24 DC Fluconazole (Diflucan) 200 mg DAILY 06/02/21 09:00 06/13/21 08:56 200 MG Heparin Sodium (Porcine) (Heparin Sodium) 10,000 unit STK-MED ONCE 06/07/21 14:15 06/08/21 13:38 DC Heparin Sodium/ Sodium Chloride 1,000 ml @ As Directed STK-MED ONCE 06/07/21 12:03 06/08/21 13:37 DC Heparin Sodium/ Sodium Chloride (HEPARIN for ARTERIAL LINE FLUSH) 1,000 unit 1X ONCE 06/07/21 14:45 06/07/21 14:46 DC 06/07/21 15:10 1,000 UNIT Hydromorphone HCl (Dilaudid) 0.5 mg PRN Q10MIN PRN 06/09/21 06:00 06/09/21 17:24 DC Info (PHARMACY MONITORING -- do not chart) 1 each PRN DAILY PRN 06/11/21 08:45 Insulin Human Lispro (HumaLOG) 0-5 UNITS TIDWMEALS 05/26/21 17:00 06/13/21 09:09 2 UNITS Iodixanol (Visipaque 320) 100 ml STK-MED ONCE 06/07/21 11:49 06/08/21 13:36 DC Lactobacillus Rhamnosus (Culturelle) 1 cap BID 05/26/21 21:00 06/13/21 08:56 1 CAP Levetiracetam (Keppra) 500 mg BID 05/30/21 09:00 06/13/21 08:55 500 MG Lidocaine HCl (Lidocaine 1% 20ml Vial) 20 ml STK-MED ONCE 06/07/21 12:03 06/08/21 13:37 DC Meropenem 500 mg/ Sodium Chloride 50 ml @ 100 mls/hr DAILY 06/02/21 09:00 06/13/21 08:58 100 MLS/HR Metoprolol Succinate (Toprol Xl) 50 mg DAILY 05/28/21 14:00 06/12/21 10:15 50 MG Midazolam HCl (Versed) 2 mg STK-MED ONCE 06/07/21 14:14 06/08/21 13:38 DC Mirtazapine (Remeron) 45 mg QHS 05/26/21 21:00 06/12/21 21:20 45 MG Morphine Sulfate (Morphine Sulfate) 1 mg PRN Q10MIN PRN 06/09/21 06:00 06/09/21 17:24 DC Non-Formulary Medication (Icosapent Ethyl (Vascepa)) 2 cap BID 05/26/21 21:00 UNV Ondansetron HCl (Zofran) 4 mg PRN Q8HRS PRN 05/26/21 03:30 05/27/21 03:29 DC Pantoprazole Sodium (Protonix) 40 mg DAILYAC 05/26/21 14:00 06/13/21 08:56 40 MG Perflutren Protein Type A Microsphe (Optison) 0.66 mg 1X ONCE 05/31/21 08:15 05/31/21 08:16 DC Piperacillin Sod/ Tazobactam Sod (Zosyn Per Pharmacy) 1 each PRN DAILY PRN 05/26/21 01:30 Cancel Piperacillin Sod/ Tazobactam Sod 2.25 gm/Sodium Chloride 50 ml @ 100 mls/hr Q8HRS 05/26/21 08:00 06/02/21 08:27 DC 06/02/21 05:35 100 MLS/HR Piperacillin Sod/ Tazobactam Sod 3.375 gm/Sodium Chloride 50 ml @ 100 mls/hr 1X ONCE 05/26/21 02:15 05/26/21 02:44 DC 05/26/21 03:25 100 MLS/HR Pregabalin (Lyrica) 225 mg BID 05/26/21 14:00 06/13/21 08:55 225 MG Prochlorperazine Edisylate (Compazine) 5 mg PACU PRN PRN 06/09/21 06:00 06/09/21 17:25 DC Promethazine HCl (Phenergan) 25 mg PRN Q6HRS PRN 05/26/21 13:00 Ringer's Solution 1,000 ml @ 30 mls/hr Q24H 06/09/21 06:00 06/09/21 17:24 DC Sodium Hypochlorite (Dakin'S 1/4 Strength) 1 lópez QODAY 06/12/21 08:00 06/12/21 08:00 1 LÓPEZ Sodium Chloride (Normal Saline Flush) 10 ml 1X PRN PRN 06/11/21 08:45 06/12/21 08:44 DC Topiramate (Topamax) 100 mg BID 05/26/21 14:00 06/13/21 08:57 100 MG Trazodone HCl (Desyrel) 50 mg QHS 05/26/21 21:00 06/12/21 21:20 50 MG Vancomycin HCl (Vanco Per Pharmacy) 1 each PRN DAILY PRN 05/26/21 03:15 06/10/21 17:20 1 EACH Vancomycin HCl (Vancomycin Random Level) 1 each 1X ONCE 06/14/21 06:00 06/14/21 06:01 Vancomycin HCl 1.75 gm/Sodium Chloride 500 ml @ 250 mls/hr 1X ONCE 05/26/21 06:00 05/26/21 07:59 DC 05/26/21 05:47 250 MLS/HR Vancomycin HCl 500 mg/Sodium Chloride 100 ml @ 100 mls/hr QMWF 06/04/21 16:00 06/11/21 14:47 100 MLS/HR Vitamin D (Vitamin D3) 1,000 unit DAILY 05/26/21 14:00 06/13/21 08:56 1,000 UNIT Lab Laboratory Tests Test 06/12/21 17:06 06/12/21 21:01 06/13/21 07:33 06/13/21 11:58 Glucose (Fingerstick) 114 mg/dL (70-99) 164 mg/dL (70-99) 159 mg/dL (70-99) 165 mg/dL (70-99) Results All relevant outside records, renal labs, imaging studies, telemetry/EKG's were reviewed. Justicifation of Admission Dx: Justifications for Admission: Justification of Admission Dx: N/A JUSTIN LARKIN MD Jun 13, 2021 12:22
--- NOTE | 2021-06-13 12:37 | PDOC ---
CARDIOLOGY PROGRESS NOTE SUBJECTIVE: No new events. Patient is resting comfortably. OBJECTIVE: Vital Signs/I&O: Vital Signs Date Time Temp Pulse Resp B/P (MAP) Pulse Ox O2 Delivery O2 Flow Rate FiO2 06/13/21 08:57 69 106/71 06/13/21 07:00 97.8 18 94 Room Air 97.8 I & O 06/12/21 06/12/21 06/13/21 15:00 23:00 07:00 Intake Total 180 ml 440 ml Balance 180 ml 440 ml Objective: No new changes to examination. Normal heart tones. Left lower extremity remains wrapped. Lungs are clear anteriorly No focal neurologic deficits CURRENT MEDICATIONS: Medications reviewed including aspirin, atorvastatin, Toprol-XL DIAGNOSTIC TESTING: Labs reviewed ASSESSMENT: Assessment 1. COVID +: afebrile: 2. Acute encephalopathy: resolved 3. ESRD on HD 4. PAFIB: rate controlled in atrial flutter. stable 5. CAD: s/p CABG. unclear if any recent w/u, clinically stable 6. HTN; controlled overall 7. DM2 8. S/P L TMA with dehiscence. L BKA next week per vascular 9. Anemia: s/p transfusion. hgb stable. 10. Sepsis 11. Hx of mild CM: past EF at 45%. Limited echo with EF 30-35% 12. Mild to moderate , moderate to severe TR. Estimated PAP 60 mmHg. 13. Severe LLE PAD: Abdominal aortogram revealed no significant aortoiliac disease bilaterally and moderate diffuse 50 to 60% stenosis involving the SFA w ith one-vessel runoff bilaterally. Recommendations Continued metoprolol for rate control Poor candidate for anticoagulation with anemia and prior hx of SDH. Continue baby ASA for stroke prevention Secondary prevention measures Fluid offloading via HD Plan for outpatient ischemic evaluation Patient will be deemed moderate risk specifically for his amputation. Justicifation of Admission Dx: Justifications for Admission: Justification of Admission Dx: N/A CARRIE MCCLAIN MD Jun 13, 2021 12:37
[2021-06-13 15:00] VITALS: BP 115/64
[2021-06-13 19:00] VITALS: BP 103/63
[2021-06-13] MEDS: MIRTAZAPINE 15 MG TABLET PO SCH (22:30)
[2021-06-13] MEDS: DULoxetine HCL 30 MG CAPSULE.DR PO SCH (22:31)
[2021-06-13] MEDS: traZODone 50 MG TABLET. PO SCH (22:31)
[2021-06-13 23:00] VITALS: BP 113/71
[2021-06-14 03:00] VITALS: BP 113/65
[2021-06-14] MEDS ORDERED: VANCOMYCIN RANDOM LEVEL. MC ONE (06:00)
[2021-06-14 06:51] LABS: CALCIUM 9.2 mg/dL (8.5-10.1); CREATININE 7.2 mg/dL (0.7-1.3); POTASSIUM 4.4 mmol/L (3.5-5.1)
[2021-06-14 07:00] VITALS: BP 95/44
[2021-06-14] MEDS: PANTOPRAZOLE 40 MG TABLET.DR. PO SCH (07:30)
[2021-06-14] MEDS ORDERED: ALBUMIN HUMAN 25% 100 ML IV PRN (08:00)
[2021-06-14] MEDS ORDERED: DIALYSIS PATIENT. MC PRN ×2 (08:00)
[2021-06-14] MEDS: INSULIN LISPRO 300 UNITS/3 ML VIAL. SQ SCH ×3 (08:00→18:12)
[2021-06-14] MEDS ORDERED: IV NORMAL SALINE 1000ML BAG 1,000 ML IV PRN ×2 (08:00)
[2021-06-14] MEDS: SODIUM HYPOCHLORITE 0.125% 473 ML BOTTLE. TP SCH (09:00)
[2021-06-14] MEDS: METOPROLOL SUCC 24HR ER 50 MG TAB.ER.24H. PO SCH (09:00)
--- NOTE | 2021-06-14 10:38 | PDOC ---
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 06/14/21 1038: CARDIO Progress Notes Date and Time Date of Service 06/14/21 Time of Evaluation 1030 Subjective Subjective: No Chest Pain, No shortness of breath, No Palpitations Vitals Vitals Vital Signs Date Time Temp Pulse Resp B/P (MAP) Pulse Ox O2 Delivery O2 Flow Rate FiO2 06/14/21 07:00 97.7 65 18 95/44 (61) 95 Room Air 97.7 Weight Weight [ ] Input and Output Intake and Output Intake and Output 06/14/21 07:00 Intake Total 600 ml Balance 600 ml Intake Oral 600 ml # Voids 3 Laboratory Labs Laboratory Tests Test 06/13/21 11:58 06/13/21 16:57 06/13/21 20:40 06/14/21 05:00 Glucose (Fingerstick) 165 mg/dL (70-99) 180 mg/dL (70-99) 145 mg/dL (70-99) Hemoglobin 11.3 g/dL (13.0-17.5) Sodium Level 142 mmol/L (136-145) Potassium Level 4.4 mmol/L (3.5-5.1) Chloride Level 102 mmol/L (98-107) Carbon Dioxide Level 25 mmol/L (21-32) Anion Gap 15 (6-14) Blood Urea Nitrogen 44 mg/dL (8-26) Creatinine 7.2 mg/dL (0.7-1.3) Estimated GFR (Cockcroft-Gault) 8.0 Glucose Level 147 mg/dL (70-99) Calcium Level 9.2 mg/dL (8.5-10.1) Test 06/14/21 07:29 Glucose (Fingerstick) 126 mg/dL (70-99) Microbiology Micro Microbiology 05/28/21 Gram Stain - Final, Complete 05/28/21 Aerobic and Anaerobic Culture - Final, Complete 05/28/21 Antimicrobic Susceptibility - Final, Complete 05/26/21 Blood Culture - Final, Complete NO GROWTH AFTER 5 DAYS Review of Systems Constitutional: yes: other (CONFUSED) Physical Exam HEENT: Neck Supple W Full Motion Chest: Symmetric LUNGS: Other (diminished bases ) Heart: RRR (atrial flutter) Abdomen: Soft N/T Extremities: Other (left TMA- drsg intact ) Neurology: alert, follow commands Assessment Assessment 1. COVID +, afebrile 2. Acute encephalopathy: resolved 3. ESRD on HD 4. PAFIB: rate controlled 5. CAD: s/p CABG. unclear if any recent w/u, clinically stable 6. HTN; controlled overall 7. DM2 8. S/P L TMA with dehiscence. L BKA planned 06/15 9. Anemia: s/p transfusion. hgb stable. 10. Sepsis 11. Hx of mild CM: past EF at 45%. Limited echo with EF 30-35% 12. Mild to moderate , moderate to severe TR. Estimated PAP 60 mmHg. 13. Severe LLE PAD: Abdominal aortogram revealed no significant aortoiliac disease bilaterally and moderate diffuse 50 to 60% stenosis involving the SFA with one-vessel runoff bilaterally. Recommendations Continued metoprolol for rate control Poor candidate for anticoagulation with anemia and prior hx of SDH. Continue baby ASA for stroke prevention Secondary prevention measures Fluid offloading via HD Plan for outpatient ischemic evaluation Supportive care Justicifation of Admission Dx: Justifications for Admission: Justification of Admission Dx: N/A CARRIE MCCLAIN MD 06/14/21 1719: CARDIO Progress Notes Plan Plan The patient was seen and interviewed as well as examined at the bedside. The chart was reviewed. The case was discussed. Agree with the plan of care. FELICITY CORLEY APRN Jun 14, 2021 10:38 CARRIE MCCLAIN MD Jun 14, 2021 17:19
--- NOTE | 2021-06-14 10:47 | PDOC ---
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 History of psychogenic nonepileptic seizures, still taking levetiracetam Anemia, end-stage renal disease on dialysis, left foot infection, COVID-19 infection (now off isolation), probable sepsis, malnutrition hypotension, Type 1 diabetes with neuropathy, atrial fibrillation, coronary artery disease, hyperten vi, peripheral artery disease Note left below the knee amputation is scheduled for 06/15 Plan Continue to treat medical issues No additional neurological investigations required Neurology will follow at intervals Subjective No complaints Objective Vital Signs Date Time Temp Pulse Resp B/P (MAP) Pulse Ox O2 Delivery O2 Flow Rate FiO2 06/14/21 07:00 97.7 65 18 95/44 (61) 95 Room Air 97.7 Intake and Output 06/14/21 07:00 Intake Total 600 ml Balance 600 ml Intake Oral 600 ml # Voids 3 PHYSICAL EXAM Alert. Oriented to person PERRL. EOMI. CN: no focal findings. Muscle tone: normal. Muscle strength: 3/5 DTR: 0+ Plantar reflex: Flexor Gait: not examined in bed. Sensory exam: Stocking loss. No cerebellar signs elicited. Review of Relevant I have reviewed the following items yifan (where applicable) has been applied. Labs Laboratory Tests Test 06/12/21 12:11 06/12/21 17:06 06/12/21 21:01 06/13/21 07:33 Glucose (Fingerstick) 215 mg/dL (70-99) 114 mg/dL (70-99) 164 mg/dL (70-99) 159 mg/dL (70-99) Test 06/13/21 11:58 06/13/21 16:57 06/13/21 20:40 06/14/21 05:00 Glucose (Fingerstick) 165 mg/dL (70-99) 180 mg/dL (70-99) 145 mg/dL (70-99) Hemoglobin 11.3 g/dL (13.0-17.5) Sodium Level 142 mmol/L (136-145) Potassium Level 4.4 mmol/L (3.5-5.1) Chloride Level 102 mmol/L (98-107) Carbon Dioxide Level 25 mmol/L (21-32) Anion Gap 15 (6-14) Blood Urea Nitrogen 44 mg/dL (8-26) Creatinine 7.2 mg/dL (0.7-1.3) Estimated GFR (Cockcroft-Gault) 8.0 Glucose Level 147 mg/dL (70-99) Calcium Level 9.2 mg/dL (8.5-10.1) Test 06/14/21 07:29 Glucose (Fingerstick) 126 mg/dL (70-99) Laboratory Tests Test 06/13/21 11:58 06/13/21 16:57 06/13/21 20:40 06/14/21 05:00 Glucose (Fingerstick) 165 mg/dL (70-99) 180 mg/dL (70-99) 145 mg/dL (70-99) Hemoglobin 11.3 g/dL (13.0-17.5) Sodium Level 142 mmol/L (136-145) Potassium Level 4.4 mmol/L (3.5-5.1) Chloride Level 102 mmol/L (98-107) Carbon Dioxide Level 25 mmol/L (21-32) Anion Gap 15 (6-14) Blood Urea Nitrogen 44 mg/dL (8-26) Creatinine 7.2 mg/dL (0.7-1.3) Estimated GFR (Cockcroft-Gault) 8.0 Glucose Level 147 mg/dL (70-99) Calcium Level 9.2 mg/dL (8.5-10.1) Test 06/14/21 07:29 Glucose (Fingerstick) 126 mg/dL (70-99) Microbiology 05/28/21 Gram Stain - Final, Complete 05/28/21 Aerobic and Anaerobic Culture - Final, Complete 05/28/21 Antimicrobic Susceptibility - Final, Complete 05/26/21 Blood Culture - Final, Complete NO GROWTH AFTER 5 DAYS Medications Current Medications Sodium Chloride 1,000 ml @ 1,000 mls/hr 1X ONCE IV ; Start 05/26/21 at 01:30; Stop 05/26/21 at 02:29; Status DC Piperacillin Sod/ Tazobactam Sod (Zosyn Per Pharmacy) 1 each PRN DAILY PRN MC SEE COMMENTS; Start 05/26/21 at 01:30; Status Cancel Piperacillin Sod/ Tazobactam Sod 3.375 gm/Sodium Chloride 50 ml @ 100 mls/hr 1X ONCE IV Last administered on 05/26/21at 03:25; Start 05/26/21 at 02:15; Stop 05/26/21 at 02:44; Status DC Vancomycin HCl (Vanco Per Pharmacy) 1 each PRN DAILY PRN MC SEE COMMENTS Last administered on 06/10/21at 17:20; Start 05/26/21 at 03:15 Sodium Chloride 500 ml @ 500 mls/hr 1X ONCE IV Last administered on 05/26/21at 03:25; Start 05/26/21 at 03:30; Stop 05/26/21 at 04:29; Status DC Ondansetron HCl (Zofran) 4 mg PRN Q8HRS PRN IVP NAUSEA/VOMITING; Start 05/26/21 at 03:30; Stop 05/27/21 at 03:29; Status DC Acetaminophen (Tylenol) 650 mg PRN Q4HRS PRN PO FEVER > 100.3'F; Start 05/26/21 at 03:30; Stop 05/27/21 at 03:29; Status DC Insulin Human Lispro (HumaLOG) 0-5 UNITS TIDWMEALS SQ Last administered on 05/26/21at 09:09; Start 05/26/21 at 08:00; Stop 05/26/21 at 12:46; Status DC Dextrose (Dextrose 50%-Water Syringe) 12.5 gm PRN Q15MIN PRN IV SEE COMMENTS; Start 05/26/21 at 03:30; Status Cancel Vancomycin HCl 1.75 gm/Sodium Chloride 500 ml @ 250 mls/hr 1X ONCE IV Last administered on 05/26/21at 05:47; Start 05/26/21 at 06:00; Stop 05/26/21 at 07: 59; Status DC Piperacillin Sod/ Tazobactam Sod 2.25 gm/Sodium Chloride 50 ml @ 100 mls/hr Q8HRS IV Last administered on 06/02/21at 05:35; Start 05/26/21 at 08:00; Stop 06/02/21 at 08:27; Status DC Sodium Hypochlorite (Dakin'S 1/4 Strength) 1 lópez BID TP Last administered on 06/09/21 20:23; Start 05/26/21 at 11:00; Stop 06/11/21 at 10:19; Status DC Aspirin (Ecotrin) 81 mg DAILY PO Last administered on 06/13/21 08:56; Start 05/26/21 at 14:00 Atorvastatin Calcium (Lipitor) 10 mg DAILY PO Last administered on 06/13/21 08:56; Start 05/26/21 at 14:00 Cyanocobalamin (Vitamin B-12) 1,000 mcg DAILY PO Last administered on 06/13/21 08:57; Start 05/27/21 at 09:00 EZETIMIBE (Zetia) 10 mg DAILY PO Last administered on 06/13/21 08:57; Start 05/26/21 at 14:00 Topiramate (Topamax) 100 mg BID PO Last administered on 06/13/21 22:30; Start 05/26/21 at 14:00 Trazodone HCl (Desyrel) 50 mg QHS PO Last administered on 06/13/21 22:31; Start 05/26/21 at 21:00 Vitamin D (Vitamin D3) 1,000 unit DAILY PO Last administered on 06/13/21 08:56; Start 05/26/21 at 14:00 Duloxetine HCl (Cymbalta) 60 mg HS PO Last administered on 06/13/21 22:31; St art 05/26/21 at 21:00 Non-Formulary Medication (Icosapent Ethyl (Vascepa)) 2 cap BID PO ; Start 05/26/21 at 21:00; Status UNV Mirtazapine (Remeron) 45 mg QHS PO Last administered on 06/13/21 22:30; Start 05/26/21 at 21:00 Pantoprazole Sodium (Protonix) 40 mg DAILYAC PO Last administered on 06/13/21 08:56; Start 05/26/21 at 14:00 Pregabalin (Lyrica) 225 mg BID PO Last administered on 06/13/21at 22:30; Start 05/26/21 at 14:00 Promethazine HCl (Phenergan) 25 mg PRN Q6HRS PRN PO NAUSEA/VOMITING; Start 05/15 07/06 at 13:00 Levetiracetam 100 ml @ 400 mls/hr Q12HR IV ; Start 05/26/21 at 21:00; Status UNV Insulin Human Lispro (HumaLOG) 0-5 UNITS TIDWMEALS SQ Last administered on 06/13/21at 18:08; Start 05/26/21 at 17:00 Dextrose (Dextrose 50%-Water Syringe) 12.5 gm PRN Q15MIN PRN IV SEE COMMENTS; Start 05/26/21 at 12:45 Levetiracetam (Keppra) 500 mg BID PO ; Start 05/26/21 at 14:00; Status Cancel Lactobacillus Rhamnosus (Culturelle) 1 cap BID PO Last administered on 06/13/21at 22:31; Start 05/26/21 at 21:00 Levetiracetam 100 ml @ 400 mls/hr Q12HR IV Last administered on 05/29/21at 21:38; Start 05/26/21 at 14:00; Stop 05/29/21 at 23:00; Status DC Epoetin Catalino-epbx (RETACRIT for ESRD PTS) 10,000 unit MoWeFr@2100 SQ Last administered on 06/11/21at 21:57; Start 05/26/21 at 21:00 Vancomycin HCl (Vancomycin Random Level) 1 each 1X ONCE MC Last administered on 05/27/21at 05:00; Start 05/27/21 at 05:00; Stop 05/27/21 at 05:01; Status DC Info (PHARMACY MONITORING -- do not chart) 1 each PRN DAILY PRN MC SEE COMMENTS; Start 05/26/21 at 18:30; Status Cancel Vancomycin HCl (Vancomycin Random Level) 1 each 1X ONCE MC Last administered on 05/29/21at 06:00; Start 05/29/21 at 06:00; Stop 05/29/21 at 06:01; Status DC Sodium Chloride 1,000 ml @ 1,000 mls/hr Q1H PRN IV hypotension; Start 05/28/21 at 11:45; Stop 05/28/21 at 17:44; Status DC Sodium Chloride (Normal Saline Flush) 10 ml 1X PRN PRN IV AP catheter pack; Start 05/28/21 at 11:45; Stop 05/29/21 at 11:44; Status DC Sodium Chloride (Normal Saline Flush) 10 ml 1X PRN PRN IV BOBTAILER catheter pack; Start 05/28/21 at 11:45; Stop 05/29/21 at 11:44; Status DC Sodium Chloride 1,000 ml @ 400 mls/hr Q2H30M PRN IV PATENCY; Start 05/28/21 at 11:45; Stop 05/28/21 at 23:44; Status DC Info (PHARMACY MONITORING -- do not chart) 1 each PRN DAILY PRN MC SEE COMMENTS; Start 05/28/21 at 11:45; Status UNV Info (PHARMACY MONITORING -- do not chart) 1 each PRN DAILY PRN MC SEE COMMENTS; Start 05/28/21 at 11:45; Status UNV Metoprolol Succinate (Toprol Xl) 50 mg DAILY PO Last administered on 06/12/21at 10:15; Start 05/28/21 at 14:00 Vancomycin HCl (Vancomycin Random Level) 1 each 1X ONCE MC Last administered on 06/02/21at 06:00; Start 06/02/21 at 06:00; Stop 06/02/21 at 06:01; Status DC Levetiracetam (Keppra) 500 mg BID PO Last administered on 06/13/21at 22:31; Start 05/30/21 at 09:00 Perflutren Protein Type A Microsphe (Optison) 0.66 mg 1X ONCE IV ; Start 05/31 at 08:15; Stop 05/31/21 at 08:16; Status DC Sodium Chloride 1,000 ml @ 1,000 mls/hr Q1H PRN IV hypotension; Start 05/31/21 at 10:15; Stop 05/31/21 at 16:14; Status DC Albumin Human 200 ml @ 200 mls/hr 1X PRN PRN IV Hypotension; Start 05/31/21 at 10:15; Stop 05/31/21 at 16:14; Status DC Sodium Chloride 1,000 ml @ 400 mls/hr Q2H30M PRN IV PATENCY; Start 05/31/21 at 10:15; Stop 05/31/21 at 22:14; Status DC Info (PHARMACY MONITORING -- do not chart) 1 each PRN DAILY PRN MC SEE COMMENTS; Start 05/31/21 at 10:15; Status Cancel Meropenem 500 mg/ Sodium Chloride 50 ml @ 100 mls/hr DAILY IV Last administered on 06/13/21at 08:58; Start 06/02/21 at 09:00 Fluconazole (Diflucan) 200 mg DAILY PO Last administered on 06/13/21at 08:56; Start 06/02/21 at 09:00 Vancomycin HCl 500 mg/Sodium Chloride 100 ml @ 100 mls/hr QMWF IV Last administered on 06/11/21at 14:47; Start 06/04/21 at 16:00 Sodium Chloride 1,000 ml @ 1,000 mls/hr Q1H PRN IV hypotension; Start 06/02/21 at 14:15; Stop 06/02/21 at 20:14; Status DC Albumin Human 100 ml @ 200 mls/hr 1X PRN PRN IV Hypotension Last administered on 06/02/21at 15:00; Start 06/02/21 at 14:15; Stop 06/02/21 at 20:14; Status DC Sodium Chloride 1,000 ml @ 400 mls/hr Q2H30M PRN IV PATENCY; Start 06/02/21 at 14:15; Stop 06/03/21 at 02:14; Status DC Info (PHARMACY MONITORING -- do not chart) 1 each PRN DAILY PRN MC SEE COMMENTS; Start 06/02/21 at 14:15; Status Cancel Info (PHARMACY MONITORING -- do not chart) 1 each PRN DAILY PRN MC SEE COMMENTS; Start 06/02/21 at 14:15; Status Cancel Sodium Chloride 1,000 ml @ 1,000 mls/hr Q1H PRN IV hypotension; Start 06/04/21 at 08:15; Stop 06/04/21 at 14:14; Status DC Albumin Human 200 ml @ 200 mls/hr 1X PRN PRN IV Hypotension; Start 06/04/21 at 08:15; Stop 06/04/21 at 14:14; Status DC Sodium Chloride (Normal Saline Flush) 10 ml 1X PRN PRN IV AP catheter pack; Start 06/04/21 at 08:15; Stop 06/05/21 at 08:14; Status DC Sodium Chloride (Normal Saline Flush) 10 ml 1X PRN PRN IV BOBTAILER catheter pack; Start 06/04/21 at 08:15; Stop 06/05/21 at 08:14; Status DC Sodium Chloride 1,000 ml @ 400 mls/hr Q2H30M PRN IV PATENCY; Start 06/04/21 at 08:15; Stop 06/04/21 at 20:14; Status DC Info (PHARMACY MONITORING -- do not chart) 1 each PRN DAILY PRN MC SEE COMMENTS; Start 06/04/21 at 08:15; Status UNV Info (PHARMACY MONITORING -- do not chart) 1 each PRN DAILY PRN MC SEE COMMENTS; Start 06/04/21 at 08:15; Stop 06/09/21 at 07:47; Status DC Sodium Chloride 1,000 ml @ 1,000 mls/hr Q1H PRN IV hypotension; Start 06/07/21 at 09:15; Stop 06/07/21 at 15:14; Status DC Albumin Human 200 ml @ 200 mls/hr 1X PRN PRN IV Hypotension; Start 06/07/21 at 09:15; Stop 06/07/21 at 15:14; Status DC Sodium Chloride 1,000 ml @ 400 mls/hr Q2H30M PRN IV PATENCY; Start 06/07/21 at 09:15; Stop 06/07/21 at 21:14; Status DC Info (PHARMACY MONITORING -- do not chart) 1 each PRN DAILY PRN MC SEE COMMENTS; Start 06/07/21 at 09:15; Status UNV Heparin Sodium/ Sodium Chloride (HEPARIN for ARTERIAL LINE FLUSH) 1,000 unit 1X ONCE IART Last administered on 06/07/21at 15:10; Start 06/07/21 at 14:45; Stop 06/07/21 at 14:46; Status DC Heparin Sodium/ Sodium Chloride (HEPARIN for ARTERIAL LINE FLUSH) 1,000 unit 1X ONCE IART Last administered on 06/07/21at 15:10; Start 06/07/21 at 14:45; Stop 06/07/21 at 14:46; Status DC Midazolam HCl (Versed) 2 mg 1X ONCE IV Last administered on 06/07/21at 15:18; Start 06/07/21 at 14:45; Stop 06/07/21 at 14:46; Status DC Fentanyl Citrate (Fentanyl 2ml Vial) 100 mcg 1X ONCE IV Last administered on 06/07/21at 15:28; Start 06/07/21 at 14:45; Stop 06/07/21 at 14:46; Status DC Iodixanol (Visipaque 320) 100 ml 1X ONCE IART Last administered on 06/07/21at 15:10; Start 06/07/21 at 14:45; Stop 06/07/21 at 14:46; Status DC Lidocaine HCl (Lidocaine 1% 20ml Vial) 20 ml 1X ONCE INJ Last administered on 06/07/21at 15:11; Start 06/07/21 at 14:45; Stop 06/07/21 at 14:46; Status DC Iodixanol (Visipaque 320) 100 ml STK-MED ONCE .ROUTE ; Start 06/07/21 at 11:49; Stop 06/08/21 at 13:36; Status DC Heparin Sodium/ Sodium Chloride 500 ml @ As Directed STK-MED ONCE .ROUTE ; Start 06/07/21 at 11:49; Stop 06/08/21 at 13:36; Status DC Lidocaine HCl (Lidocaine 1% 20ml Vial) 20 ml STK-MED ONCE .ROUTE ; Start 06/07/21 at 12:03; Stop 06/08/21 at 13:37; Status DC Heparin Sodium/ Sodium Chloride 1,000 ml @ As Directed STK-MED ONCE .ROUTE ; Start 06/07/21 at 12:03; Stop 06/08/21 at 13:37; Status DC Midazolam HCl (Versed) 2 mg STK-MED ONCE .ROUTE ; Start 06/07/21 at 14:14; Stop 06/08/21 at 13:38; Status DC Fentanyl Citrate (Fentanyl 2ml Vial) 100 mcg STK-MED ONCE .ROUTE ; Start 06/07/21 at 14:15; Stop 06/08/21 at 13:38; Status DC Heparin Sodium (Porcine) (Heparin Sodium) 10,000 unit STK-MED ONCE .ROUTE ; Start 06/07/21 at 14:15; Stop 06/08/21 at 13:38; Status DC Cefazolin Sodium 1 gm/Sodium Chloride 500 ml @ 500 mls/hr 1X ONCE IRR ; Start 06/09/21 at 06:00; Stop 06/09/21 at 07:00; Status DC Fentanyl Citrate (Fentanyl 2ml Vial) 25 mcg PRN Q5MIN PRN IVP MILD PAIN 1-3; Start 06/09/21 at 06:00; Stop 06/09/21 at 17:24; Status DC Fentanyl Citrate (Fentanyl 2ml Vial) 50 mcg PRN Q5MIN PRN IVP MODERATE PAIN 4- 6; Start 06/09/21 at 06:00; Stop 06/09/21 at 17:24; Status DC Morphine Sulfate (Morphine Sulfate) 1 mg PRN Q10MIN PRN IVP SEVERE PAIN 7-10; Start 06/09/21 at 06:00; Stop 06/09/21 at 17:24; Status DC Ringer's Solution 1,000 ml @ 30 mls/hr Q24H IV ; Start 06/09/21 at 06:00; Stop 06/09/21 at 17:24; Status DC Hydromorphone HCl (Dilaudid) 0.5 mg PRN Q10MIN PRN IVP SEVERE PAIN 7-10, 2nd CHOICE; Start 06/09/21 at 06:00; Stop 06/09/21 at 17:24; Status DC Prochlorperazine Edisylate (Compazine) 5 mg PACU PRN PRN IVP NAUSEA, MRX1; Start 06/09/21 at 06:00; Stop 06/09/21 at 17:25; Status DC Sodium Chloride 1,000 ml @ 1,000 mls/hr Q1H PRN IV hypotension; Start 06/09/21 at 07:45; Stop 06/09/21 at 13:44; Status DC Sodium Chloride 1,000 ml @ 400 mls/hr Q2H30M PRN IV PATENCY; Start 06/09/21 at 07:45; Stop 06/09/21 at 19:44; Status DC Info (PHARMACY MONITORING -- do not chart) 1 each PRN DAILY PRN MC SEE COMMENTS; Start 06/09/21 at 07:45; Stop 06/09/21 at 07:48; Status DC Info (PHARMACY MONITORING -- do not chart) 1 each PRN DAILY PRN MC SEE COMMENTS; Start 06/09/21 at 07:45; Status Cancel Sodium Chloride 1,000 ml @ 1,000 mls/hr Q1H PRN IV hypotension; Start 06/11/21 at 08:45; Stop 06/11/21 at 14:44; Status DC Sodium Chloride (Normal Saline Flush) 10 ml 1X PRN PRN IV AP catheter pack; Start 06/11/21 at 08:45; Stop 06/12/21 at 08:44; Status DC Sodium Chloride (Normal Saline Flush) 10 ml 1X PRN PRN IV BOBTAILER catheter pack; Start 06/11/21 at 08:45; Stop 06/12/21 at 08:44; Status DC Info (PHARMACY MONITORING -- do not chart) 1 each PRN DAILY PRN MC SEE COMMENTS; Start 06/11/21 at 08:45; Status UNV Info (PHARMACY MONITORING -- do not chart) 1 each PRN DAILY PRN MC SEE COMMENTS; Start 06/11/21 at 08:45; Status Cancel Sodium Hypochlorite (Dakin'S 1/4 Strength) 1 lópez QODAY TP Last administered on 06/12/21at 08:00; Start 06/12/21 at 08:00 Vancomycin HCl (Vancomycin Random Level) 1 each 1X ONCE MC ; Start 06/14/21 at 06:00; Stop 06/14/21 at 06:01; Status DC Sodium Chloride 1,000 ml @ 1,000 mls/hr Q1H PRN IV hypotension; Start 06/14/21 at 08:00; Stop 06/14/21 at 13:59 Albumin Human 100 ml @ 200 mls/hr 1X PRN PRN IV Hypotension; Start 06/14/21 at 08:00; Stop 06/14/21 at 13:59 Sodium Chloride 1,000 ml @ 400 mls/hr Q2H30M PRN IV PATENCY; Start 06/14/21 at 08:00; Stop 06/14/21 at 19:59 Info (PHARMACY MONITORING -- do not chart) 1 each PRN DAILY PRN MC SEE COMMENTS; Start 06/14/21 at 08:00; Status UNV Info (PHARMACY MONITORING -- do not chart) 1 each PRN DAILY PRN MC SEE COMME NTS; Start 06/14/21 at 08:00 Active Scripts Active Metoprolol Succinate 50 Mg Tab.er.24h 50 Mg PO DAILY 30 Days Levetiracetam 500 Mg Tablet 500 Mg PO BID 30 Days Reported Trazodone Hcl 50 Mg Tablet 1 Tab PO QHS Xultophy 100 Unit-3.6 mg/ml (Insulin Degludec/Liraglutide) 3 Ml Insuln.pen 24 Ml SQ HS Vitamin D (Cholecalciferol (Vitamin D3)) 1,000 Unit Capsule 1 Cap PO DAILY Atorvastatin Calcium 10 Mg Tablet 10 Mg PO DAILY Sildenafil (Sildenafil Citrate) 20 Mg Tablet 20 Mg PO TID Zetia (Ezetimibe) 10 Mg Tablet 10 Mg PO DAILY Omeprazole 40 Mg Capsule.dr 40 Mg PO DAILY Topiramate 100 Mg Tablet 100 Mg PO BID Promethazine Hcl 25 Mg Tablet 25 Mg PO Q6H PRN B-12 (Cyanocobalamin (Vitamin B-12)) 1,000 Mcg Tablet 1,000 Mcg PO DAILY Vascepa (Icosapent Ethyl) 1 Gm Capsule 2 Cap PO BID Aspirin Ec (Aspirin) 81 Mg Tablet.dr 81 Mg PO DAILY Duloxetine Hcl 60 Mg Capsule.dr 60 Mg PO HS Lyrica (Pregabalin) 225 Mg Capsule 225 Mg PO BID Losartan-Hctz 100-25 Mg Tab (Losartan/Hydrochlorothiazide) 1 Each Tablet 25 Mg PO DAILY Mirtazapine 45 Mg Tablet 45 Mg PO HS Amlodipine Besylate 5 Mg Tablet 5 Mg PO DAILY Vitals/I & O Vital Sign - Last 24 Hours 06/13/21 06/13/21 06/13/21 06/13/21 11:00 15:00 19:00 20:00 Temp 98.2 98.7 98.4 98.2 98.7 98.4 Pulse 77 61 58 Resp 18 18 18 B/P (MAP) 112/77 (89) 115/64 (81) 103/63 (76) Pulse Ox 95 92 99 O2 Delivery Room Air Room Air Room Air Room Air 06/13/21 06/14/21 06/14/21 23:00 03:00 07:00 Temp 98.3 98.4 97.7 98.3 98.4 97.7 Pulse 59 78 65 Resp 18 18 18 B/P (MAP) 113/71 (85) 113/65 (81) 95/44 (61) Pulse Ox 99 98 95 O2 Delivery Room Air Room Air Room Air Intake and Output 06/13/21 06/13/21 06/14/21 15:00 23:00 07:00 Intake Total 200 ml 400 ml Balance 200 ml 400 ml Justicifation of Admission Dx: Justifications for Admission: Justification of Admission Dx: N/A PAOLA DICK MD Jun 14, 2021 10:47
--- NOTE | 2021-06-14 11:19 | NUR ---
SW following. Discussed with RN, BRYAN planned for tomorrow. MARIANO will continue to follow.
--- NOTE | 2021-06-14 11:43 | PDOC ---
Provider Note Date of Service: DATE: 06/14/21 TIME: 11:38 Provider Note Provider Note Vascular surgery S: Pt seen in dialysis. He has no complaints, is resting comfortably. O: VSS, afebrile Respirations nonlabored, room air Left foot dressing clean, dry and intact A/P: Left foot gangrene Plan for left BKA tomorrow. Discussed with the patient in detail, he exhibited understanding and agreed to proceed as recommended. He did not have any questions. Justicifation of Admission Dx: Justifications for Admission: Justification of Admission Dx: N/A AVILA TAYLOR Jun 14, 2021 11:42
--- NOTE | 2021-06-14 12:08 | PDOC ---
Renal-Progress Notes Subjective Notes Notes FEELS VERY TIRED History of Present Illness Hx of present illness OVERALL NOT MUCH BETTER, HAS MULTIPLE COMORBID CONDITIONS Vitals Vitals Vital Signs Date Time Temp Pulse Resp B/P (MAP) Pulse Ox O2 Delivery O2 Flow Rate FiO2 06/14/21 07:00 97.7 65 18 95/44 (61) 95 Room Air 97.7 Weight Weight [ ] I.O. Intake and Output Intake and Output 06/14/21 07:00 Intake Total 600 ml Balance 600 ml Intake Oral 600 ml # Voids 3 Labs Labs Laboratory Tests Test 06/13/21 16:57 06/13/21 20:40 06/14/21 05:00 06/14/21 07:29 Glucose (Fingerstick) 180 mg/dL (70-99) 145 mg/dL (70-99) 126 mg/dL (70-99) Hemoglobin 11.3 g/dL (13.0-17.5) Sodium Level 142 mmol/L (136-145) Potassium Level 4.4 mmol/L (3.5-5.1) Chloride Level 102 mmol/L (98-107) Carbon Dioxide Level 25 mmol/L (21-32) Anion Gap 15 (6-14) Blood Urea Nitrogen 44 mg/dL (8-26) Creatinine 7.2 mg/dL (0.7-1.3) Estimated GFR (Cockcroft-Gault) 8.0 Glucose Level 147 mg/dL (70-99) Calcium Level 9.2 mg/dL (8.5-10.1) Micro Micro Microbiology 05/28/21 Gram Stain - Final, Complete 05/28/21 Aerobic and Anaerobic Culture - Final, Complete 05/28/21 Antimicrobic Susceptibility - Final, Complete 05/26/21 Blood Culture - Final, Complete NO GROWTH AFTER 5 DAYS Review of Systems Constitutional: yes: weakness, alert, oriented Ears/Nose/Throat: Yes: no symptom reported Eyes: Yes: no symptom reported Pulmonary: Yes no symptom reported Cardiovascular: Yes no symptom reported Gastrointestional: Yes: constipation Genitourinary: Yes: no symptom reported Musculoskeletal: Yes: leg pain, foot pain Skin: Yes no symptom reported Psychiatric/Neurological: Yes: depressed Endocrine: Yes: no symptom reported Hematologic/Lymphatic: Yes: no symptom reported Physical Exam General Appearance: no apparent distress Skin: warm Respiratory: decreased breath sounds Heart: S1S2 Abdomen: soft, bowel sounds present Genitourinary: bladder flat Neurology: alert, oriented, follow commands Assessment Assessment IMP ESRD-MWF ANEMIA DM II-LABILE BG ENCEPHALOPATHY-RESOLVED HTN HX LEFT TMA STUMP WOUND PROB SEPSIS HYPOTENSION-CORRECTED MALNUTRITION CARDIAC ARRHYTHMIA PLAN HD TODAY UF TO TW VINNIE NEEDED ANTIBIOTICS WILL NEED WOUND CARE L BKA PLANNED FOR TOMORROW WILL FOLLOW NUBIA PATTON MD Jun 14, 2021 12:08
[2021-06-14] MEDS: VANCOMYCIN PER PHARMACY MC PRN (12:24)
--- NOTE | 2021-06-14 13:30 | NUR ---
PATIENT RETURNS TO ROOM FROM DIALYSIS, ALERT AND VERBALLY RESPONSIVE, COMFORT MEASURES GIVEN,LUNCH OFFERED, WILL GIVE MEDS FROM THE AM. PER REPORT FROM REAL ESTATE ATTORNEY, 1.9 KILOS REMOVED, ALBUMIN GIVEN AND VITALS STABLE AT THE END OF DIALYSIS.
[2021-06-14 15:00] VITALS: BP 106/61
[2021-06-14] MEDS: CHOLECALCIFEROL (VITAMIN D3) 1,000 UNIT TABLET PO SCH (15:13)
[2021-06-14] MEDS: FLUCONAZOLE 100 MG TABLET. PO SCH (15:13)
[2021-06-14] MEDS: levETIRAcetam 500 MG TABLET PO SCH ×2 (15:13→20:57)
[2021-06-14] MEDS: ASPIRIN ENTERIC COATED 81 MG TABLET.DR. PO SCH (15:14)
[2021-06-14] MEDS: LACTOBACILLUS RHAMNOSUS GG 1 CAPSULE. PO SCH ×2 (15:14→20:57)
[2021-06-14] MEDS: PREGABALIN 75 MG CAPSULE PO SCH ×2 (15:14→20:58)
[2021-06-14] MEDS: CYANOCOBALAMIN (VITAMIN B-12) 1,000 MCG TABLET. PO SCH (15:15)
[2021-06-14] MEDS: TOPIRAMATE 100 MG TABLET. PO SCH ×2 (15:15→20:57)
[2021-06-14] MEDS: ATORVASTATIN CALCIUM 10 MG TABLET. PO SCH ×2 (15:15→20:57)
[2021-06-14] MEDS: EZETIMIBE 10 MG TABLET. PO SCH (15:15)
[2021-06-14] MEDS: MEROPENEM 500 MG in IV NORMAL SALINE 50ML 50 ML IV SCH (15:16)
--- NOTE | 2021-06-14 17:32 | PN ---
DATE: 06/14/2021 SUBJECTIVE: The patient is resting, slightly propped up in bed, in no apparent respiratory distress. He is resting slightly. He is having his scheduled hemodialysis. On questioning him, he denied any complaint. The nursing staff did not voice any concerns that he had an eventful night. PHYSICAL EXAMINATION: GENERAL: When I examined him, he looked pale, but not jaundiced or cyanosed. No thyromegaly. No jugular venous distention. No limb edema. VITAL SIGNS: His heart rate was 65, blood pressure 95/44, temperature was 97.7, respiratory rate was 18 and oxygen saturation was 95%. HEAD, EYES, EARS, NOSE AND THROAT: Normocephalic, atraumatic. NECK: Supple. HEART: Showed normal first and second heart sounds. No gallop or murmur. CHEST: Clear to auscultation. No crepitation or rhonchi. ABDOMEN: Distended, soft, nontender. NEUROLOGIC: He is awake, alert, responding appropriately to commands intact. He moves upper extremities without difficulty. He has left forefoot amputation with dehisced wound that is infected. He is mostly bedbound, wheelchair bound. His intake was 620 and output was recorded. LABORATORY DATA: His lab work this morning showed a serum sodium 142, potassium 4.4, chloride 102, bicarbonate 25, anion gap of 15, BUN of 44, creatinine 7.2, estimated GFR was 80 mL per minute, glucose 147. His hemoglobin was 11.3. ASSESSMENT: 1. The patient is status post left transmetatarsal amputation with dehiscence and infection of the wound and large eschar on the dorsum of the left foot. He is scheduled for left below-knee amputation on Monday06/15/2021 2. The patient has arterial Doppler ultrasound showing that he has significant stenosis; however arteriogram was done, which showed that there is no significant aortoiliac disease bilaterally. He has moderate diffuse 50%-60% stenosis involving superficial femoral artery with one-vessel runoff bilaterally. 3. The patient has asymptomatic COVID-19 infection. He is now off isolation. 4. The patient has end-stage renal disease, on hemodialysis Monday, Monday, Monday. 5. Type 1 diabetes mellitus with multiple complications. 6. Atrial fibrillation, rate controlled, not anticoagulated. 7. Coronary artery disease status post coronary artery bypass graft surgery. 8. Ischemic cardiomyopathy. 9. Hypertension. 10. Cerebrovascular accident. 11. Peripheral neuropathy. 12. History of chronic subdural hematoma that has apparently resolved. 13. Seizure disorder. 14. Peripheral arterial disease, status post left transmetatarsal amputation. 15. Metabolic encephalopathy. It has resolved. PLAN: To continue IV antibiotic. Continue with wound care. Continue hemodialysis. Continue to monitor his blood sugar and adjust insulin as needed. DAE/LEELEE DR: Tyler TID: [id number]
[2021-06-14 19:00] VITALS: BP 106/60
[2021-06-14] MEDS: MIRTAZAPINE 15 MG TABLET PO SCH (20:57)
[2021-06-14] MEDS: DULoxetine HCL 30 MG CAPSULE.DR PO SCH (20:57)
[2021-06-14] MEDS: traZODone 50 MG TABLET. PO SCH (20:57)
[2021-06-14] MEDS: EPOETIN ALFA-EPBX for ESRD 20,000 UNIT/ML VIAL. SQ SCH (21:12)
[2021-06-14 23:00] VITALS: BP 117/75
[2021-06-15] VITALS (10 sets, daily range): BP systolic 93–155; BP diastolic 28–89
[2021-06-15] MEDS: PANTOPRAZOLE 40 MG TABLET.DR. PO SCH (05:23)
[2021-06-15] MEDS ORDERED: HYDROmorphone 2 MG/ML INJ. IVP PRN (06:00)
[2021-06-15] MEDS: IV RINGERS,LACTATED 1000ML 1,000 ML IV SCH (06:00)
[2021-06-15] MEDS ORDERED: PROCHLORPERAZINE 10 MG/2 ML VIAL. IVP PRN (06:00)
[2021-06-15] MEDS ORDERED: MORPHINE SULFATE 2 MG/ML INJ. IVP PRN (06:00)
[2021-06-15] MEDS ORDERED: fentaNYL PF VIAL 100 MCG/2 ML VIAL IVP PRN ×2 (06:00)
[2021-06-15] MEDS: INSULIN LISPRO 300 UNITS/3 ML VIAL. SQ SCH ×3 (08:00→17:41)
[2021-06-15 08:05] LABS: HEMATOCRIT 33.9 % (39.0-53.0); HEMOGLOBIN 10.3 g/dL (13.0-17.5); WHITE BLOOD COUNT 7.1 x10^3/uL (4.0-11.0)
[2021-06-15 08:22] LABS: CREATININE 5.2 mg/dL (0.7-1.3); GFR 11.6; POTASSIUM 3.9 mmol/L (3.5-5.1)
[2021-06-15] MEDS: CHOLECALCIFEROL (VITAMIN D3) 1,000 UNIT TABLET PO SCH (09:00)
[2021-06-15] MEDS: ASPIRIN ENTERIC COATED 81 MG TABLET.DR. PO SCH (09:00)
[2021-06-15] MEDS: CYANOCOBALAMIN (VITAMIN B-12) 1,000 MCG TABLET. PO SCH (09:00)
[2021-06-15] MEDS: PREGABALIN 75 MG CAPSULE PO SCH ×2 (09:00→21:11)
[2021-06-15] MEDS: LACTOBACILLUS RHAMNOSUS GG 1 CAPSULE. PO SCH ×2 (09:00→21:12)
[2021-06-15] MEDS: TOPIRAMATE 100 MG TABLET. PO SCH ×2 (09:00→21:11)
[2021-06-15] MEDS: EZETIMIBE 10 MG TABLET. PO SCH (09:00)
[2021-06-15] MEDS: FLUCONAZOLE 100 MG TABLET. PO SCH (09:00)
[2021-06-15] MEDS: MEROPENEM 500 MG in IV NORMAL SALINE 50ML 50 ML IV SCH (09:14)
[2021-06-15] MEDS: levETIRAcetam 500 MG TABLET PO SCH ×2 (09:14→21:12)
[2021-06-15] MEDS: METOPROLOL SUCC 24HR ER 50 MG TAB.ER.24H. PO SCH (09:15)
[2021-06-15] MEDS: IV NORMAL SALINE 1000ML BAG 1,000 ML IV SCH (10:00)
[2021-06-15] MEDS ORDERED: PROPOFOL 10 MG/ML (20ML) VIAL. IV ONE (10:53)
[2021-06-15] MEDS ORDERED: LIDOCAINE 1% PF 5 ML VIAL. ONE (10:53)
[2021-06-15] MEDS ORDERED: fentaNYL PF VIAL 100 MCG/2 ML VIAL ONE ×2 (10:53→13:22)
--- NOTE | 2021-06-15 11:08 | PDOC ---
Provider Note Date of Service: DATE: 06/15/21 TIME: 11:05 Provider Note He is a 55 yo male with DM, ESRD on dialysis, and peripheral artery disease who presents with open left foot wounds that have failed to improve following toe amputations. He also has superficial ulcers over the left knee. Angiogram showed in-line flow through the left popliteal artery. His DM and renal failure will likely slow healing potential, but he should have adequate arterial flow to facilitate healing of a left below knee amputation. I discussed risks and potential benefits of left leg amputation. Risks include but are not limited to bleeding, infection, nerve injury, cardiac/pulmonary complications and . He acknowledged and elected to proceed with left below knee amputation. Justifications for Admission Other Justification BRENDAN SANZ MD Jun 15, 2021 11:08
[2021-06-15] MEDS ORDERED: oxyCODONE/APAP 5/325 1 TAB TABLET PO PRN (11:45)
--- NOTE | 2021-06-15 12:03 | PDOC ---
Renal-Progress Notes Subjective Notes Notes NONE History of Present Illness Hx of present illness STABLE Vitals Vitals Vital Signs Date Time Temp Pulse Resp B/P (MAP) Pulse Ox O2 Delivery O2 Flow Rate FiO2 06/15/21 10:10 97.6 81 16 152/85 93 Room Air 97.6 Weight Weight [ ] I.O. Intake and Output Intake and Output 06/15/21 07:00 Intake Total 340 ml Balance 340 ml Intake Oral 340 ml # Voids 1 # Bowel Movements 1 Labs Labs Laboratory Tests Test 06/14/21 13:45 06/14/21 16:48 06/14/21 19:57 06/15/21 06:25 Glucose (Fingerstick) 116 mg/dL (70-99) 165 mg/dL (70-99) 153 mg/dL (70-99) White Blood Count 7.1 x10^3/uL (4.0-11.0) Hemoglobin 10.3 g/dL (13.0-17.5) Hematocrit 33.9 % (39.0-53.0) Platelet Count 136 x10^3/uL (140-400) Sodium Level 141 mmol/L (136-145) Potassium Level 3.9 mmol/L (3.5-5.1) Chloride Level 102 mmol/L (98-107) Carbon Dioxide Level 28 mmol/L (21-32) Anion Gap 11 (6-14) Blood Urea Nitrogen 27 mg/dL (8-26) Creatinine 5.2 mg/dL (0.7-1.3) Estimated GFR (Cockcroft-Gault) 11.6 Glucose Level 168 mg/dL (70-99) Calcium Level 9.0 mg/dL (8.5-10.1) Test 06/15/21 07:56 Glucose (Fingerstick) 157 mg/dL (70-99) Micro Micro Microbiology 05/28/21 Gram Stain - Final, Complete 05/28/21 Aerobic and Anaerobic Culture - Final, Complete 05/28/21 Antimicrobic Susceptibility - Final, Complete 05/26/21 Blood Culture - Final, Complete NO GROWTH AFTER 5 DAYS Review of Systems Constitutional: yes: other (CONFUSED) Ears/Nose/Throat: Yes: no symptom reported Eyes: Yes: no symptom reported Pulmonary: Yes no symptom reported Cardiovascular: Yes no symptom reported Gastrointestional: Yes: constipation Genitourinary: Yes: no symptom reported Musculoskeletal: Yes: leg pain, foot pain Skin: Yes no symptom reported Psychiatric/Neurological: Yes: depressed Endocrine: Yes: no symptom reported Hematologic/Lymphatic: Yes: no symptom reported Physical Exam General Appearance: no apparent distress Skin: warm Respiratory: decreased breath sounds Heart: S1S2 Abdomen: soft, bowel sounds present Genitourinary: bladder flat Neurology: alert, follow commands Assessment Assessment IMP ESRD-MWF ANEMIA DM II-LABILE BG ENCEPHALOPATHY-RESOLVED HTN HX LEFT TMA STUMP WOUND PROB SEPSIS HYPOTENSION-CORRECTED MALNUTRITION CARDIAC ARRHYTHMIA PLAN HD TOMORROW VINNIE NEEDED ANTIBIOTICS WILL NEED WOUND CARE L BKA PLANNED TODAY WILL FOLLOW NUBIA PATTON MD Jun 15, 2021 12:03
[2021-06-15] MEDS ORDERED: PHENYLEPHRINE in 0.9% NACL PF 1 MG/10 ML SYRINGE. IV ONE (12:18)
[2021-06-15] MEDS ORDERED: GLYCOPYRROLATE 1 MG/5 ML VIAL. ONE (12:38)
--- NOTE | 2021-06-15 12:51 | PDOC4 ---
BRIEF OPERATIVE NOTE Date: Jun 15, 2021 Pre-Op Diagnosis Peripheral arterial disease with nonhealing left foot wounds Diabetes Chronic renal failure on hemodialysis Post-Op Diagnosis Same Procedure Performed Left below-knee amputation Surgeon Steve Anesthesia Type: General Blood Loss 100 mL Specimens Obtained Left leg Findings Good vasculature at amputation site Complications None BRENDAN SANZ MD Jun 15, 2021 12:51
--- NOTE | 2021-06-15 13:30 | PN ---
DATE: 06/15/2021 SUBJECTIVE: The patient is resting, slightly propped up in bed, in no apparent respiratory distress. He is scheduled for left below-knee amputation today. Questioning him, denied any complaint. Nursing staff did not voice any concerns that he had an eventful night. PHYSICAL EXAMINATION: GENERAL: When I examined him, he looked well and was clearly in no apparent respiratory distress, pale, but not jaundiced or cyanosed. No lymphadenopathy or thyromegaly. No jugular venous distention. No lower limb edema. VITAL SIGNS: His heart rate was 79, blood pressure was 143/83, temperature 97.5, respiratory rate 20 and oxygen saturation was 98%. The rest of clinical exam is stable. LABORATORY DATA: His lab work this morning showed a white cell count of 7100, hemoglobin 10, hematocrit 33 and platelet count of 136,000. His chemistry showed a serum sodium of 141, potassium 3.9, chloride 102, bicarbonate 28, anion gap of 11, BUN 27, creatinine 5.2. Estimated GFR was 11, glucose 168 and calcium was 9. ASSESSMENT: Severe peripheral arterial disease with open left foot wound that failed to improve following the forefoot amputation. He also has superficial ulcer of the left knee. The angiogram showed inline flow to the left popliteal artery. The patient was scheduled for left below-knee amputation today. The patient has multiple other medical problems including type 1 diabetes mellitus with multiple complications, end-stage renal disease, on hemodialysis; atrial fibrillation, rate controlled, not anticoagulated; coronary artery disease, status post coronary artery bypass graft surgery; ischemic cardiomyopathy; hypertension; cerebrovascular accident; peripheral neuropathy; seizure disorder and metabolic encephalopathy that has resolved. PLAN: To continue with monitoring his blood sugar and adjust insulin as needed. Continue IV antibiotic. Continue with hemodialysis. Continue with wound care. CHERYL/YAKOV DR: Tyler TID: [id number]
--- NOTE | 2021-06-15 16:38 | OP ---
DATE OF SURGERY: 06/15/2021 PREOPERATIVE DIAGNOSES: 1. Chronic renal failure, on hemodialysis. 2. Diabetes. 3. Peripheral arterial disease. 4. Nonhealing left foot wound. POSTOPERATIVE DIAGNOSES: 1. Chronic renal failure, on hemodialysis. 2. Diabetes. 3. Peripheral arterial disease. 4. Nonhealing left foot wound. PROCEDURE: Left below-knee amputation. SURGEON: Santiago Wilson MD ANESTHESIA: General. INDICATIONS: The patient is a 55-year-old male with diabetes; chronic renal failure, on hemodialysis and peripheral arterial disease who has had a left transmetatarsal amputation. This has failed to improve and has slowly been worsening. He subsequently presents for below-knee amputation. FINDINGS: There was calcification of his tibial vessels. There was good pulsatility at this level consistent with adequate blood flow. Amputation in the below knee section was performed with primary closure. Of note, there were 2 superficial ulcers over the left knee, each measuring approximately 1.5 cm in diameter. DESCRIPTION OF PROCEDURE: The patient was taken to the operating room and placed up on the operating table. He underwent general anesthetic. His left leg was prepped and draped in normal sterile fashion. Bioclusive dressing was placed over the foot. After appropriate timeout, an incision was made approximately 10 cm below the tibial tuberosity. This incision was carried down through the subcutaneous tissue through the anterior and lateral muscle. The anterior tibial vessels were clamped and divided. These were ligated with 2-0 silk ties. The tibia was encircled and divided with an oscillating saw. The fibula was then encircled and also divided more proximally with an oscillating saw. The posterior flap was then developed and the left leg was passed off the field. Tibial vessels were clamped and suture ligated with 2-0 silk ligatures. Muscle flap was trimmed to the appropriate thickness and hemostasis obtained with electrocautery as well as 2-0 silk suture ligatures. The anterior portion of the tibia was bevelled to prevent pressure injury. The fascia was reapproximated with interrupted 2-0 Vicryl suture. A subdermal 3-0 Vicryl suture was placed followed by skin gopi. Xeroform was placed over the incision as well as over the superficial ulcers on the left knee. The 4 x 4s, followed by Sof-Rol and Coban was applied. The patient tolerated the procedure well and there were no complications. Estimated blood loss of 100 mL. SPECIMEN: Left lower leg. ETTA/JEN/SLAVA DR: Akira TID: [id number] CC: KAHLIL WADE MD
[2021-06-15] MEDS: HYDROmorphone 2 MG/ML INJ. IVP PRN (16:54)
[2021-06-15] MEDS: traZODone 50 MG TABLET. PO SCH (21:11)
[2021-06-15] MEDS: oxyCODONE/APAP 5/325 1 TAB TABLET PO PRN (21:11)
[2021-06-15] MEDS: MIRTAZAPINE 15 MG TABLET PO SCH (21:11)
[2021-06-15] MEDS: DULoxetine HCL 30 MG CAPSULE.DR PO SCH (21:12)
[2021-06-16 07:00] VITALS: BP 136/120
[2021-06-16 07:09] LABS: HEMATOCRIT 35.5 % (39.0-53.0); HEMOGLOBIN 10.6 g/dL (13.0-17.5); RED BLOOD COUNT 3.9 x10^6/uL (4.30-5.70); RED CELL DISTRIBUTION WIDTH 27.5 % (11.5-14.5); WHITE BLOOD COUNT 10.4 x10^3/uL (4.0-11.0)
[2021-06-16 07:34] LABS: CALCIUM 9.2 mg/dL (8.5-10.1); CREATININE 6.1 mg/dL (0.7-1.3); GFR 9.7; POTASSIUM 4.5 mmol/L (3.5-5.1)
[2021-06-16] MEDS: INSULIN LISPRO 300 UNITS/3 ML VIAL. SQ SCH ×3 (07:57→17:00)
[2021-06-16] MEDS: ASPIRIN ENTERIC COATED 81 MG TABLET.DR. PO SCH (08:56)
[2021-06-16] MEDS: PREGABALIN 75 MG CAPSULE PO SCH ×2 (08:56→19:50)
[2021-06-16] MEDS: CHOLECALCIFEROL (VITAMIN D3) 1,000 UNIT TABLET PO SCH (08:56)
[2021-06-16] MEDS: LACTOBACILLUS RHAMNOSUS GG 1 CAPSULE. PO SCH ×2 (08:56→19:49)
[2021-06-16] MEDS: EZETIMIBE 10 MG TABLET. PO SCH (08:56)
[2021-06-16] MEDS: METOPROLOL SUCC 24HR ER 50 MG TAB.ER.24H. PO SCH (08:57)
[2021-06-16] MEDS: levETIRAcetam 500 MG TABLET PO SCH ×2 (08:57→19:50)
[2021-06-16] MEDS: TOPIRAMATE 100 MG TABLET. PO SCH ×2 (08:57→19:48)
[2021-06-16] MEDS: ATORVASTATIN CALCIUM 10 MG TABLET. PO SCH (08:57)
[2021-06-16] MEDS: FLUCONAZOLE 100 MG TABLET. PO SCH (08:58)
[2021-06-16] MEDS: CYANOCOBALAMIN (VITAMIN B-12) 1,000 MCG TABLET. PO SCH (08:58)
[2021-06-16] MEDS: PANTOPRAZOLE 40 MG TABLET.DR. PO SCH (08:58)
[2021-06-16] MEDS: SODIUM HYPOCHLORITE 0.125% 473 ML BOTTLE. TP SCH (09:00)
[2021-06-16] MEDS: IV NORMAL SALINE 1000ML BAG 1,000 ML IV SCH (10:00)
[2021-06-16] MEDS: MEROPENEM 500 MG in IV NORMAL SALINE 50ML 50 ML IV SCH (10:04)
--- NOTE | 2021-06-16 10:31 | PDOC ---
Provider Note Date of Service: DATE: 06/16/21 TIME: 10:24 Provider Note Provider Note Vascular S: Patient is resting in chair, rooke protector in place. Denies any stump pain. O: Awake and alert Left BKA stump dressing is dry and intact. Upper thigh warm, no swelling. CBC - BMP 06/16/21 04:45 A/P: 1. Chronic renal failure, on hemodialysis. 2. Diabetes. 3. Peripheral arterial disease. 4. Nonhealing left foot wound. POD#1 Left BKA, doing well. -will plan to remove dressing tomorrow -continue IV abx per IM, may likely discontinue in a few days, source of infection was foot. -PT/OT -SS for discharge planning -follow up in our office for incision check, will plan vein mapping for A-V access at that appointment. Justicifation of Admission Dx: Justifications for Admission: Justification of Admission Dx: N/A JALYN HUNT APRN Jun 16, 2021 10:31
[2021-06-16] MEDS: HYDROmorphone 2 MG/ML INJ. IVP PRN (10:44)
[2021-06-16 11:00] VITALS: BP 98/50
--- NOTE | 2021-06-16 13:31 | PDOC ---
PROGRESS NOTES Date of Service: DATE: 06/16/21 TIME: 13:29 Subjective Subjective no complaints Objective Objective Vital Signs Date Time Temp Pulse Resp B/P (MAP) Pulse Ox O2 Delivery O2 Flow Rate FiO2 06/16/21 11:00 99.4 79 18 98/50 (66) 94 99.4 06/16/21 07:00 Room Air 06/15/21 23:00 2.0 Intake and Output 06/16/21 06:59 Intake Total 1000 ml Output Total 100 ml Balance 900 ml Intake Oral 0 ml IV Total 1000 ml Estimated Blood Loss 100 ml # Bowel Movements 1 Physical Exam Abdomen: Soft Heart: Other (AFIB) Extremities: No cyanosis, Other (Left TMA) General: Alert, Oriented X3, Cooperative, No acute distress HEENT: Atraumatic, Mucous membr. moist/pink Lungs: Other (diminished) MUSCULOSKELETAL: Osteoarthritic changes both hands Neuro: Normal speech, Sensation intact Psych/Mental Status: Mental status NL Skin: No breakdown Diagnosis Problem List Problems Medical Problems: (1) Altered mental status Status: Acute (2) COVID-19 Status: Acute (3) Draining postoperative wound Status: Acute (4) ESRD (end stage renal disease) on dialysis Status: Acute (5) Severe anemia Status: Acute Assessment Assessment Problems Medical Problems: (1) Altered mental status Status: Acute (2) COVID-19 Status: Acute (3) Draining postoperative wound Status: Acute (4) ESRD (end stage renal disease) on dialysis Status: Acute (5) Severe anemia Status: Acute A/P: 1. Chronic renal failure, on hemodialysis. 2. Diabetes. 3. Peripheral arterial disease. 4. Nonhealing left foot wound. 5,COvid infection PLAN:spoke with vascular , continue antibiotic for now dialysis today POD#1 Left BKA, doing well. -will plan to remove dressing tomorrow -continue IV abx per IM, may likely discontinue in a few days, source of infection was foot. -PT/OT -SS for discharge planning -follow up in our office for incision check, will plan vein mapping for A-V access at that appointment. Plan Plan of Care Problems Medical Problems: (1) Altered mental status Status: Acute (2) COVID-19 Status: Acute (3) Draining postoperative wound Status: Acute (4) ESRD (end stage renal disease) on dialysis Status: Acute (5) Severe anemia Status: Acute Comment Review of Relevant I have reviewed the following items yifan (where applicable) has been applied. Labs Laboratory Tests Test 06/15/21 16:52 06/15/21 20:01 06/16/21 04:45 06/16/21 07:31 Glucose (Fingerstick) 177 mg/dL (70-99) 113 mg/dL (70-99) 136 mg/dL (70-99) White Blood Count 10.4 x10^3/uL (4.0-11.0) Red Blood Count 3.90 x10^6/uL (4.30-5.70) Hemoglobin 10.6 g/dL (13.0-17.5) Hematocrit 35.5 % (39.0-53.0) Mean Corpuscular Volume 91 fL (79-100) Mean Corpuscular Hemoglobin 27 pg (25-35) Mean Corpuscular Hemoglobin Concent 30 g/dL (31-37) Red Cell Distribution Width 27.5 % (11.5-14.5) Platelet Count 155 x10^3/uL (140-400) Sodium Level 145 mmol/L (136-145) Potassium Level 4.5 mmol/L (3.5-5.1) Chloride Level 104 mmol/L (98-107) Carbon Dioxide Level 23 mmol/L (21-32) Anion Gap 18 (6-14) Blood Urea Nitrogen 31 mg/dL (8-26) Creatinine 6.1 mg/dL (0.7-1.3) Estimated GFR (Cockcroft-Gault) 9.7 Glucose Level 113 mg/dL (70-99) Calcium Level 9.2 mg/dL (8.5-10.1) Test 06/16/21 11:41 Glucose (Fingerstick) 130 mg/dL (70-99) Microbiology 05/28/21 Gram Stain - Final, Complete 05/28/21 Aerobic and Anaerobic Culture - Final, Complete 05/28/21 Antimicrobic Susceptibility - Final, Complete 05/26/21 Blood Culture - Final, Complete NO GROWTH AFTER 5 DAYS Medications Current Medications Vancomycin HCl (Vancomycin Random Level) 1 each 1X ONCE MC ; Start 06/18/21 at 05:00; Stop 06/18/21 at 05:01 Vitals/I & O Vital Sign - Last 24 Hours 2/06/0506/15/21 06/15/21 06/15/21 13:40 14:06 14:10 14:20 Pulse 77 78 Resp 10 16 B/P (MAP) 92/62 94/64 (74) Pulse Ox 95 98 O2 Delivery Nasal Cannula Nasal Cannula Room Air O2 Flow Rate 2 2.0 06/15/21 06/15/21 06/15/21 06/15/21 14:21 14:30 14:36 14:51 Pulse 78 77 82 B/P (MAP) 117/70 (86) 111/65 (80) 100/63 (75) Pulse Ox 100 100 96 O2 Delivery Nasal Cannula Room Air Nasal Cannula Nasal Cannula O2 Flow Rate 2.0 2.0 06/15/21 06/15/21 06/15/21 06/15/21 15:21 15:51 16:54 17:25 Pulse 76 76 Resp 18 B/P (MAP) 114/71 (85) 117/70 (86) Pulse Ox 96 97 O2 Delivery Nasal Cannula Nasal Cannula Nasal Cannula O2 Flow Rate 2.0 2.0 06/15/21 06/15/21 06/15/21 06/15/21 19:00 20:00 21:11 21:41 Temp 97.8 97.8 Pulse 71 Resp 20 18 B/P (MAP) 93/28 (49) Pulse Ox 91 91 91 O2 Delivery Nasal Cannula Room Air Room Air Room Air O2 Flow Rate 2.0 2.0 06/15/21 06/16/21 06/16/21 06/16/21 23:00 07:00 08:57 10:44 Temp 97.8 98.1 97.8 98.1 Pulse 75 93 93 Resp 20 20 20 B/P (MAP) 101/78 (86) 136/120 (125) 136/120 Pulse Ox 97 95 O2 Delivery Nasal Cannula Room Air O2 Flow Rate 2.0 06/16/21 11:00 Temp 99.4 99.4 Pulse 79 Resp 18 B/P (MAP) 98/50 (66) Pulse Ox 94 Intake and Output 06/15/21 06/15/21 06/16/21 14:59 22:59 06:59 Intake Total 1000 ml 0 ml Output Total 100 ml Balance 900 ml 0 ml Justifications for Admission Other Justification STEVO KERNS MD Jun 16, 2021 13:31
--- NOTE | 2021-06-16 13:44 | PDOC ---
Renal-Progress Notes Subjective Notes Notes HAVING STUMP PAIN History of Present Illness Hx of present illness STABLE Vitals Vitals Vital Signs Date Time Temp Pulse Resp B/P (MAP) Pulse Ox O2 Delivery O2 Flow Rate FiO2 06/16/21 11:00 99.4 79 18 98/50 (66) 94 99.4 06/16/21 07:00 Room Air 06/15/21 23:00 2.0 Weight Weight [ ] I.O. Intake and Output Intake and Output 06/16/21 07:00 Intake Total 1000 ml Output Total 100 ml Balance 900 ml Intake Oral 0 ml IV Total 1000 ml Estimated Blood Loss 100 ml # Bowel Movements 1 Labs Labs Laboratory Tests Test 06/15/21 16:52 06/15/21 20:01 06/16/21 04:45 06/16/21 07:31 Glucose (Fingerstick) 177 mg/dL (70-99) 113 mg/dL (70-99) 136 mg/dL (70-99) White Blood Count 10.4 x10^3/uL (4.0-11.0) Red Blood Count 3.90 x10^6/uL (4.30-5.70) Hemoglobin 10.6 g/dL (13.0-17.5) Hematocrit 35.5 % (39.0-53.0) Mean Corpuscular Volume 91 fL (79-100) Mean Corpuscular Hemoglobin 27 pg (25-35) Mean Corpuscular Hemoglobin Concent 30 g/dL (31-37) Red Cell Distribution Width 27.5 % (11.5-14.5) Platelet Count 155 x10^3/uL (140-400) Sodium Level 145 mmol/L (136-145) Potassium Level 4.5 mmol/L (3.5-5.1) Chloride Level 104 mmol/L (98-107) Carbon Dioxide Level 23 mmol/L (21-32) Anion Gap 18 (6-14) Blood Urea Nitrogen 31 mg/dL (8-26) Creatinine 6.1 mg/dL (0.7-1.3) Estimated GFR (Cockcroft-Gault) 9.7 Glucose Level 113 mg/dL (70-99) Calcium Level 9.2 mg/dL (8.5-10.1) Test 06/16/21 11:41 Glucose (Fingerstick) 130 mg/dL (70-99) Micro Micro Microbiology 05/28/21 Gram Stain - Final, Complete 05/28/21 Aerobic and Anaerobic Culture - Final, Complete 05/28/21 Antimicrobic Susceptibility - Final, Complete 05/26/21 Blood Culture - Final, Complete NO GROWTH AFTER 5 DAYS Review of Systems Constitutional: yes: other (CONFUSED) Ears/Nose/Throat: Yes: no symptom reported Eyes: Yes: no symptom reported Pulmonary: Yes no symptom reported Cardiovascular: Yes no symptom reported Gastrointestional: Yes: constipation Genitourinary: Yes: no symptom reported Musculoskeletal: Yes: leg pain, foot pain Skin: Yes no symptom reported Psychiatric/Neurological: Yes: depressed Endocrine: Yes: no symptom reported Hematologic/Lymphatic: Yes: no symptom reported Physical Exam General Appearance: no apparent distress Skin: warm Respiratory: decreased breath sounds Heart: S1S2 Abdomen: soft, bowel sounds present Genitourinary: bladder flat Neurology: alert, follow commands Assessment Assessment IMP ESRD-MWF ANEMIA DM II-LABILE BG ENCEPHALOPATHY-RESOLVED HTN HX LEFT TMA STUMP WOUND PROB SEPSIS HYPOTENSION-CORRECTED MALNUTRITION CARDIAC ARRHYTHMIA S/P L BKA PLAN HD TODAY UF TO TW VINNIE NEEDED ANTIBIOTICS WOUND CARE WILL FOLLOW NUBIA PATTON MD Jun 16, 2021 13:44
--- NOTE | 2021-06-16 14:48 | NUR ---
SW following. Discussed with RN, pt had BKA yesterday. Per RN, pt not 100% alert from the pain medications and best to speak with his family about SNF placement. SW spoke with pt's sister and mother, they would like referral sent to [facility]. They do not want [facility] or [facility]. Referral phoned and faxed to [facility], awaiting acceptance decision. SW will continue to follow.
[2021-06-16 15:00] VITALS: BP 104/59
[2021-06-16] MEDS ORDERED: DIALYSIS PATIENT. MC PRN ×3 (16:00→18:30)
[2021-06-16] MEDS ORDERED: IV NORMAL SALINE 1000ML BAG 1,000 ML IV PRN ×4 (16:00→18:30)
--- NOTE | 2021-06-16 16:40 | PDOC ---
CARDIOLOGY PROGRESS NOTE SUBJECTIVE: No acute events overnight. He is in pain from his amputation. Denies any current chest pain or dyspnea. He is slightly confused at times. OBJECTIVE: Vital Signs/I&O: Vital Signs Date Time Temp Pulse Resp B/P (MAP) Pulse Ox O2 Delivery O2 Flow Rate FiO2 06/16/21 15:00 99.0 77 104/59 (74) 97 99.0 06/16/21 11:14 22 Room Air 06/15/21 23:00 2.0 I & O 06/15/21 06/15/21 06/16/21 15:00 23:00 07:00 Intake Total 1000 ml 0 ml Output Total 100 ml Balance 900 ml 0 ml Objective: General Appearance: no apparent distress Skin: warm Respiratory: decreased breath sounds Heart: S1S2 Abdomen: soft, bowel sounds present Genitourinary: bladder flat Neurology: alert, follow commands CURRENT MEDICATIONS: Toprol-XL, Zetia, atorvastatin and aspirin. DIAGNOSTIC TESTING: Labs reviewed. Labs: Laboratory Tests 06/16/21 04:45 Laboratory Tests Test 06/15/21 16:52 06/15/21 20:01 06/16/21 04:45 06/16/21 07:31 Glucose (Fingerstick) 177 mg/dL (70-99) H 113 mg/dL (70-99) H 136 mg/dL (70-99) H White Blood Count 10.4 x10^3/uL (4.0-11.0) Red Blood Count 3.90 x10^6/uL (4.30-5.70) L Hemoglobin 10.6 g/dL (13.0-17.5) L Hematocrit 35.5 % (39.0-53.0) L Mean Corpuscular Volume 91 fL (79-100) Mean Corpuscular Hemoglobin 27 pg (25-35) Mean Corpuscular Hemoglobin Concent 30 g/dL (31-37) L Red Cell Distribution Width 27.5 % (11.5-14.5) H Platelet Count 155 x10^3/uL (140-400) Sodium Level 145 mmol/L (136-145) Potassium Level 4.5 mmol/L (3.5-5.1) Chloride Level 104 mmol/L (98-107) Carbon Dioxide Level 23 mmol/L (21-32) Anion Gap 18 (6-14) H Blood Urea Nitrogen 31 mg/dL (8-26) H Creatinine 6.1 mg/dL (0.7-1.3) H Estimated GFR (Cockcroft-Gault) 9.7 Glucose Level 113 mg/dL (70-99) H Calcium Level 9.2 mg/dL (8.5-10.1) Test 06/16/21 11:41 Glucose (Fingerstick) 130 mg/dL (70-99) H ASSESSMENT: Assessment 1. COVID +: afebrile: 2. Acute encephalopathy: resolved 3. ESRD on HD 4. PAFIB: rate controlled in atrial flutter. stable 5. CAD: s/p CABG. unclear if any recent w/u, clinically stable 6. HTN; controlled overall 7. DM2 8. S/P L BKA 9. Anemia: s/p transfusion. hgb stable. 10. Sepsis 11. Hx of mild CM: 12. Mild to moderate , moderate to severe TR. Estimated PAP 60 mmHg. 13. Severe LLE PAD: Abdominal aortogram revealed no significant aortoiliac disease bilaterally and moderate diffuse 50 to 60% stenosis involving the SFA with one-vessel runoff bilaterally. Recommendations Continued metoprolol for rate control Poor candidate for anticoagulation with anemia and prior hx of SDH. Continue baby ASA for stroke prevention Secondary prevention measures Fluid offloading via HD Plan for outpatient ischemic evaluation Supportive care. *No new CV recs. Thanks Justicifation of Admission Dx: Justifications for Admission: Justification of Admission Dx: N/A CARRIE MCCLAIN MD Jun 16, 2021 16:40
[2021-06-16] MEDS ORDERED: 0.9 % SODIUM CHLORIDE 10 ML DISP.SYRIN. IV PRN ×2 (18:30)
[2021-06-16] MEDS ORDERED: ALBUMIN HUMAN 25% 200 ML IV PRN (18:30)
[2021-06-16] MEDS: oxyCODONE/APAP 5/325 1 TAB TABLET PO PRN (19:48)
[2021-06-16] MEDS: traZODone 50 MG TABLET. PO SCH (19:48)
[2021-06-16] MEDS: DULoxetine HCL 30 MG CAPSULE.DR PO SCH (19:50)
[2021-06-16] MEDS: PROMETHAZINE 12.5 MG TABLET. PO PRN (19:50)
[2021-06-16] MEDS: MIRTAZAPINE 15 MG TABLET PO SCH (19:50)
[2021-06-16] MEDS: EPOETIN ALFA-EPBX for ESRD 20,000 UNIT/ML VIAL. SQ SCH (19:52)
[2021-06-16 21:30] VITALS: BP 90/54
[2021-06-16 23:00] VITALS: BP 91/49
[2021-06-17 03:00] VITALS: BP 82/46
[2021-06-17 07:00] VITALS: BP 91/46
[2021-06-17] MEDS: INSULIN LISPRO 300 UNITS/3 ML VIAL. SQ SCH ×3 (08:00→17:00)
--- NOTE | 2021-06-17 09:13 | PDOC ---
Provider Note Date of Service: DATE: 06/17/21 TIME: 09:11 Provider Note Provider Note Vascular S: Patient is resting in bed, rooke boot protector in place. Denies any stump pain. O: Awake and alert Left BKA stump incision is dry and intact. multiple superficial wounds that are clean along medial thigh knee and crowley. A/P: 1. Chronic renal failure, on hemodialysis. 2. Diabetes. 3. Peripheral arterial disease. 4. Nonhealing left foot wound. POD#2 Left BKA, doing well. -continue daily dressing changes to include xeroform to superficial wounds. -continue IV abx per IM, may likely discontinue in a few days, source of infection was foot. -PT/OT -SS for discharge planning -follow up in our office for incision check, will plan vein mapping for A-V access at that appointment. Justicifation of Admission Dx: Justifications for Admission: Justification of Admission Dx: N/A JALYN HUNT APRN Jun 17, 2021 09:13
[2021-06-17] MEDS: MEROPENEM 500 MG in IV NORMAL SALINE 50ML 50 ML IV SCH (09:34)
[2021-06-17] MEDS: EZETIMIBE 10 MG TABLET. PO SCH (09:34)
[2021-06-17] MEDS: ASPIRIN ENTERIC COATED 81 MG TABLET.DR. PO SCH (09:34)
[2021-06-17] MEDS: CYANOCOBALAMIN (VITAMIN B-12) 1,000 MCG TABLET. PO SCH (09:34)
[2021-06-17] MEDS: levETIRAcetam 500 MG TABLET PO SCH ×2 (09:34→21:22)
[2021-06-17] MEDS: CHOLECALCIFEROL (VITAMIN D3) 1,000 UNIT TABLET PO SCH (09:34)
[2021-06-17] MEDS: TOPIRAMATE 100 MG TABLET. PO SCH ×2 (09:35→21:21)
[2021-06-17] MEDS: ATORVASTATIN CALCIUM 10 MG TABLET. PO SCH (09:35)
[2021-06-17] MEDS: PREGABALIN 75 MG CAPSULE PO SCH ×2 (09:35→21:21)
[2021-06-17] MEDS: FLUCONAZOLE 100 MG TABLET. PO SCH (09:35)
[2021-06-17] MEDS: PANTOPRAZOLE 40 MG TABLET.DR. PO SCH (09:36)
[2021-06-17] MEDS: LACTOBACILLUS RHAMNOSUS GG 1 CAPSULE. PO SCH ×2 (09:36→21:22)
--- NOTE | 2021-06-17 09:46 | PDOC ---
PROGRESS NOTES Date of Service: DATE: 06/17/21 TIME: 09:46 Subjective Subjective no new problems Objective Objective Vital Signs Date Time Temp Pulse Resp B/P (MAP) Pulse Ox O2 Delivery O2 Flow Rate FiO2 06/17/21 07:00 98.4 63 18 91/46 (61) 92 98.4 06/16/21 20:18 Room Air 06/16/21 19:48 2.0 Intake and Output 06/17/21 07:00 # Voids 1 Physical Exam Abdomen: Soft Heart: Other (AFIB) Extremities: No cyanosis, Other (Left TMA) General: Alert, Oriented X3, Cooperative, No acute distress HEENT: Atraumatic, Mucous membr. moist/pink Lungs: Other (diminished) MUSCULOSKELETAL: Osteoarthritic changes both hands Neuro: Normal speech, Sensation intact Psych/Mental Status: Mental status NL Skin: No breakdown Diagnosis Problem List Problems Medical Problems: (1) Altered mental status Status: Acute (2) COVID-19 Status: Acute (3) Draining postoperative wound Status: Acute (4) ESRD (end stage renal disease) on dialysis Status: Acute (5) Severe anemia Status: Acute Assessment Assessment Problems Medical Problems: (1) Altered mental status Status: Acute (2) COVID-19 Status: Acute (3) Draining postoperative wound Status: Acute (4) ESRD (end stage renal disease) on dialysis Status: Acute (5) Severe anemia Status: Acute A/P: 1. Chronic renal failure, on hemodialysis. 2. Diabetes. 3. Peripheral arterial disease. 4. Nonhealing left foot wound. 5, Covid infection PLAN: spoke with ed case manager,pt may to different SNU monday spoke with vascular , continue antibiotic for now dialysis todmorrrow POD#2 Left BKA, doing well. -continue IV abx per IM, may likely discontinue in a few days, source of infection was foot. -PT/OT -SS for discharge planning -follow up in our office for incision check, will plan vein mapping for A-V access at that appointment. Plan Plan of Care Problems Medical Problems: (1) Altered mental status Status: Acute (2) COVID-19 Status: Acute (3) Draining postoperative wound Status: Acute (4) ESRD (end stage renal disease) on dialysis Status: Acute (5) Severe anemia Status: Acute Comment Review of Relevant I have reviewed the following items yifan (where applicable) has been applied. Labs Laboratory Tests Test 06/16/21 11:41 06/16/21 16:56 06/16/21 21:27 06/17/21 07:46 Glucose (Fingerstick) 130 mg/dL (70-99) 152 mg/dL (70-99) 126 mg/dL (70-99) 131 mg/dL (70-99) Microbiology 05/28/21 Gram Stain - Final, Complete 05/28/21 Aerobic and Anaerobic Culture - Final, Complete 05/28/21 Antimicrobic Susceptibility - Final, Complete 05/26/21 Blood Culture - Final, Complete NO GROWTH AFTER 5 DAYS Medications Current Medications Albumin Human 200 ml @ 200 mls/hr 1X PRN PRN IV Hypotension; Start 06/16/21 at 18:30; Stop 06/17/21 at 00:29; Status DC Info (PHARMACY MONITORING -- do not chart) 1 each PRN DAILY PRN MC SEE COMMENTS; Start 06/16/21 at 16:00; Status Cancel Info (PHARMACY MONITORING -- do not chart) 1 each PRN DAILY PRN MC SEE COMMENTS; Start 06/16/21 at 18:30 Info (PHARMACY MONITORING -- do not chart) 1 each PRN DAILY PRN MC SEE COMMENTS; Start 06/16/21 at 18:30; Status UNV Sodium Chloride 1,000 ml @ 400 mls/hr Q2H30M PRN IV PATENCY; Start 06/16/21 at 16:00; Stop 06/17/21 at 03:59; Status DC Sodium Chloride 1,000 ml @ 400 mls/hr Q2H30M PRN IV PATENCY; Start 06/16/21 at 18:30; Stop 06/17/21 at 06:29; Status DC Sodium Chloride 1,000 ml @ 1,000 mls/hr Q1H PRN IV hypotension; Start 06/16/21 at 16:00; Stop 06/16/21 at 21:59; Status DC Sodium Chloride 1,000 ml @ 1,000 mls/hr Q1H PRN IV hypotension; Start 06/16/21 at 18:30; Stop 06/17/21 at 00:29; Status DC Sodium Chloride (Normal Saline Flush) 10 ml 1X PRN PRN IV AP catheter pack; Start 06/16/21 at 18:30; Stop 06/17/21 at 18:29 Sodium Chloride (Normal Saline Flush) 10 ml 1X PRN PRN IV JACK FRAME TENDER catheter pack; Start 06/16/21 at 18:30; Stop 06/17/21 at 18:29 Vancomycin HCl (Vancomycin Random Level) 1 each 1X ONCE MC ; Start 06/18/21 at 05:00; Stop 06/18/21 at 05:01 Vitals/I & O Vital Sign - Last 24 Hours 06/16/21 06/16/21 06/16/21 06/16/21 10:44 11:00 11:14 15:00 Temp 99.4 99.0 99.4 99.0 Pulse 79 77 Resp 20 18 22 B/P (MAP) 98/50 (66) 104/59 (74) Pulse Ox 94 97 O2 Delivery Room Air 06/16/21 06/16/21 06/16/21 06/16/21 19:48 20:00 20:18 21:30 Temp 98.4 98.4 Pulse 80 Resp 18 18 16 B/P (MAP) 90/54 (66) Pulse Ox 97 98 98 O2 Delivery Room Air Room Air Room Air O2 Flow Rate 2.0 06/16/21 06/17/21 06/17/21 23:00 03:00 07:00 Temp 98.2 97.0 98.4 98.2 97.0 98.4 Pulse 73 59 63 Resp 16 18 18 B/P (MAP) 91/49 (63) 82/46 (58) 91/46 (61) Pulse Ox 96 92 92 Justifications for Admission Other Justification STEVO KERNS MD Jun 17, 2021 09:46
[2021-06-17 11:00] VITALS: BP 130/70
--- NOTE | 2021-06-17 11:40 | NUR ---
SW following. Discussed with RN, HCR [facility] have declined to take pt due to patient having an open MSP (Medicare Secondary Payor) and being in copay days. Per HCR the MSP is from December and through [employer]. SW tried to reach family to discuss. Pt's copays are $188 per day with an out of pocket max of $4900. MARIANO sent a message to [facility] to determine if still no bed available for pt. SW will attempt to reach family again - voicemail box is currently full. MARIANO will continue to follow.
--- NOTE | 2021-06-17 12:35 | PDOC ---
TEJAL GUO SAND BOBBER 06/17/21 1235: CARDIO Progress Notes Date and Time Date of Service 06/17/2021 Time of Evaluation 1130 Subjective Subjective: No Chest Pain, No shortness of breath, No Palpitations Vitals Vitals Vital Signs Date Time Temp Pulse Resp B/P (MAP) Pulse Ox O2 Delivery O2 Flow Rate FiO2 06/17/21 11:56 18 95 Room Air 06/17/21 11:00 97.6 87 130/70 (90) 97.6 06/16/21 19:48 2.0 Weight Weight [ ] Input and Output Intake and Output Intake and Output 06/17/21 07:00 # Voids 1 Laboratory Labs Laboratory Tests Test 06/16/21 16:56 06/16/21 21:27 06/17/21 07:46 06/17/21 11:50 Glucose (Fingerstick) 152 mg/dL (70-99) 126 mg/dL (70-99) 131 mg/dL (70-99) 159 mg/dL (70-99) Microbiology Micro Microbiology 05/28/21 Gram Stain - Final, Complete 05/28/21 Aerobic and Anaerobic Culture - Final, Complete 05/28/21 Antimicrobic Susceptibility - Final, Complete 05/26/21 Blood Culture - Final, Complete NO GROWTH AFTER 5 DAYS Review of Systems Constitutional: yes: other (CONFUSED) Ears/Nose/Throat: Yes: no symptom reported Eyes: Yes: no symptom reported Pulmonary: Yes no symptom reported Cardiovascular: Yes no symptom reported Gastrointestional: Yes: constipation Genitourinary: Yes: no symptom reported Musculoskeletal: Yes: leg pain, foot pain Skin: Yes no symptom reported Psychiatric/Neurological: Yes: depressed Endocrine: Yes: no symptom reported Hematologic/Lymphatic: Yes: no symptom reported Physical Exam HEENT: Neck Supple W Full Motion Chest: Symmetric LUNGS: Other (diminished bases ) Heart: RRR (atrial flutter) Abdomen: Soft N/T Extremities: Other (LBKA) Neurology: alert, oriented, follow commands Assessment Assessment 1. COVID + 2. Acute encephalopathy: resolved 3. ESRD on HD 4. PAFIB: rate controlled in atrial flutter. stable 5. CAD: s/p CABG. unclear if any recent w/u, clinically stable 6. HTN; controlled overall 7. DM2 8. S/P LBKA 9. Anemia: s/p transfusion. hgb stable. 10. Sepsis 11. Hx of mild CM: Limited echo with EF 30-35% 12. Mild to moderate , moderate to severe TR. Estimated PAP 60 mmHg. 13. Severe LLE PAD: Abdominal aortogram revealed no significant aortoiliac disease bilaterally and moderate diffuse 50 to 60% stenosis involving the SFA with one-vessel runoff bilaterally. Recommendations Continued metoprolol for rate control Poor candidate for anticoagulation with anemia and prior hx of SDH. Continue baby ASA for stroke prevention Secondary prevention measures Fluid offloading via HD Continue COVID treatment Supportive care. Outpt ischemic workup if none recent Justicifation of Admission Dx: Justifications for Admission: Justification of Admission Dx: N/A CARRIE MCCLAIN MD 06/17/21 1600: CARDIO Progress Notes Plan Plan The patient was seen and interviewed as well as examined at the bedside. The chart was reviewed. The case was discussed. Agree with the plan of care. TEJAL GUO APRN Jun 17, 2021 12:35 CARRIE MCCLAIN MD Jun 17, 2021 16:00
[2021-06-17] MEDS: METOPROLOL SUCC 24HR ER 50 MG TAB.ER.24H. PO SCH (13:37)
[2021-06-17] MEDS: VANCOMYCIN PER PHARMACY MC PRN (14:38)
--- NOTE | 2021-06-17 14:42 | PDOC ---
Renal-Progress Notes Subjective Notes Notes NO NEW COMPLAINTS History of Present Illness Hx of present illness STABLE BUT CHRONICALLY ILL Vitals Vitals Vital Signs Date Time Temp Pulse Resp B/P (MAP) Pulse Ox O2 Delivery O2 Flow Rate FiO2 06/17/21 13:37 87 130/70 06/17/21 12:30 19 95 Room Air 06/17/21 11:00 97.6 97.6 06/16/21 19:48 2.0 Weight Weight [ ] I.O. Intake and Output Intake and Output0 06/17/21 07:00 # Voids 1 Labs Labs Laboratory Tests Test 06/16/21 16:56 06/16/21 21:27 06/17/21 07:46 06/17/21 11:50 Glucose (Fingerstick) 152 mg/dL (70-99) 126 mg/dL (70-99) 131 mg/dL (70-99) 159 mg/dL (70-99) Micro Micro Microbiology 05/28/21 Gram Stain - Final, Complete 05/28/21 Aerobic and Anaerobic Culture - Final, Complete 05/28/21 Antimicrobic Susceptibility - Final, Complete 05/26/21 Blood Culture - Final, Complete NO GROWTH AFTER 5 DAYS Review of Systems Constitutional: yes: other (CONFUSED) Ears/Nose/Throat: Yes: no symptom reported Eyes: Yes: no symptom reported Pulmonary: Yes no symptom reported Cardiovascular: Yes no symptom reported Gastrointestional: Yes: constipation Genitourinary: Yes: no symptom reported Musculoskeletal: Yes: leg pain, foot pain Skin: Yes no symptom reported Psychiatric/Neurological: Yes: depressed Endocrine: Yes: no symptom reported Hematologic/Lymphatic: Yes: no symptom reported Physical Exam General Appearance: no apparent distress Skin: warm Respiratory: decreased breath sounds Heart: S1S2 Abdomen: soft, bowel sounds present Genitourinary: bladder flat Neurology: alert, oriented, follow commands Assessment Assessment IMP ESRD-MWF ANEMIA DM II-LABILE BG ENCEPHALOPATHY-RESOLVED HTN HX LEFT TMA STUMP WOUND PROB SEPSIS HYPOTENSION-CORRECTED MALNUTRITION CARDIAC ARRHYTHMIA S/P L BKA PLAN HD TOMORROW START MIDODRINE VINNIE NEEDED ANTIBIOTICS WOUND CARE WILL FOLLOW NUBIA PATTON MD Jun 17, 2021 14:42
[2021-06-17 15:00] VITALS: BP 121/78
[2021-06-17] MEDS: MIDODRINE 2.5 MG TABLET PO SCH (17:40)
[2021-06-17 19:00] VITALS: BP 97/55
[2021-06-17] MEDS: traZODone 50 MG TABLET. PO SCH (21:20)
[2021-06-17] MEDS: MIRTAZAPINE 15 MG TABLET PO SCH (21:21)
[2021-06-17] MEDS: PROMETHAZINE 12.5 MG TABLET. PO PRN (21:21)
[2021-06-17] MEDS: DULoxetine HCL 30 MG CAPSULE.DR PO SCH (21:22)
[2021-06-17] MEDS: oxyCODONE/APAP 5/325 1 TAB TABLET PO PRN (21:22)
[2021-06-17 23:00] VITALS: BP 102/62
[2021-06-18 03:00] VITALS: BP 131/66
[2021-06-18] MEDS ORDERED: VANCOMYCIN RANDOM LEVEL. MC ONE (05:00)
[2021-06-18 07:00] VITALS: BP 108/56
[2021-06-18] MEDS: MIDODRINE 2.5 MG TABLET PO SCH ×3 (07:00→18:00)
[2021-06-18 07:25] LABS: CALCIUM 8.9 mg/dL (8.5-10.1); CREATININE 6.1 mg/dL (0.7-1.3); GFR 9.7; POTASSIUM 4.3 mmol/L (3.5-5.1)
[2021-06-18 07:31] LABS: HEMATOCRIT 37.9 % (39.0-53.0); HEMOGLOBIN 11.3 g/dL (13.0-17.5); RED BLOOD COUNT 4.19 x10^6/uL (4.30-5.70); RED CELL DISTRIBUTION WIDTH 25.8 % (11.5-14.5)
[2021-06-18] MEDS ORDERED: IV NORMAL SALINE 1000ML BAG 1,000 ML IV PRN ×2 (08:00)
[2021-06-18] MEDS ORDERED: DIALYSIS PATIENT. MC PRN (08:00)
[2021-06-18] MEDS: INSULIN LISPRO 300 UNITS/3 ML VIAL. SQ SCH ×3 (08:00→16:56)
[2021-06-18] MEDS: METOPROLOL SUCC 24HR ER 50 MG TAB.ER.24H. PO SCH (09:00)
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
--- NOTE | 2021-06-18 11:53 | PDOC ---
Renal-Progress Notes Subjective Notes Notes FEELING BETTER History of Present Illness Hx of present illness STABLE Vitals Vitals Vital Signs Date Time Temp Pulse Resp B/P (MAP) Pulse Ox O2 Delivery O2 Flow Rate FiO2 06/18/21 07:00 98.0 55 20 108/56 (73) 93 Room Air 98.0 06/17/21 21:52 2.0 Weight Weight [ ] I.O. Intake and Output Intake and Output 06/18/21 07:00 Intake Total 170 ml Balance 170 ml Intake Oral 170 ml Labs Labs Laboratory Tests Test 06/17/21 17:01 06/17/21 20:21 06/18/21 06:15 06/18/21 07:29 Glucose (Fingerstick) 157 mg/dL (70-99) 132 mg/dL (70-99) 140 mg/dL (70-99) White Blood Count 10.0 x10^3/uL (4.0-11.0) Red Blood Count 4.19 x10^6/uL (4.30-5.70) Hemoglobin 11.3 g/dL (13.0-17.5) Hematocrit 37.9 % (39.0-53.0) Mean Corpuscular Volume 91 fL (79-100) Mean Corpuscular Hemoglobin 27 pg (25-35) Mean Corpuscular Hemoglobin Concent 30 g/dL (31-37) Red Cell Distribution Width 25.8 % (11.5-14.5) Platelet Count 153 x10^3/uL (140-400) Sodium Level 138 mmol/L (136-145) Potassium Level 4.3 mmol/L (3.5-5.1) Chloride Level 100 mmol/L (98-107) Carbon Dioxide Level 24 mmol/L (21-32) Anion Gap 14 (6-14) Blood Urea Nitrogen 30 mg/dL (8-26) Creatinine 6.1 mg/dL (0.7-1.3) Estimated GFR (Cockcroft-Gault) 9.7 Glucose Level 143 mg/dL (70-99) Calcium Level 8.9 mg/dL (8.5-10.1) Random Vancomycin Level 25.2 mcg/mL Micro Micro Microbiology 05/28/21 Gram Stain - Final, Complete 05/28/21 Aerobic and Anaerobic Culture - Final, Complete 05/28/21 Antimicrobic Susceptibility - Final, Complete 05/26/21 Blood Culture - Final, Complete NO GROWTH AFTER 5 DAYS Review of Systems Constitutional: yes: other (CONFUSED) Ears/Nose/Throat: Yes: no symptom reported Eyes: Yes: no symptom reported Pulmonary: Yes no symptom reported Cardiovascular: Yes no symptom reported Gastrointestional: Yes: constipation Genitourinary: Yes: no symptom reported Musculoskeletal: Yes: leg pain, foot pain Skin: Yes no symptom reported Psychiatric/Neurological: Yes: depressed Endocrine: Yes: no symptom reported Hematologic/Lymphatic: Yes: no symptom reported Physical Exam General Appearance: no apparent distress Skin: warm Respiratory: decreased breath sounds Heart: S1S2 Abdomen: soft, bowel sounds present Genitourinary: bladder flat Neurology: alert, oriented, follow commands Assessment Assessment IMP ESRD-MWF ANEMIA DM II-LABILE BG ENCEPHALOPATHY-RESOLVED HTN HX LEFT TMA STUMP WOUND PROB SEPSIS HYPOTENSION-CORRECTED MALNUTRITION CARDIAC ARRHYTHMIA S/P L BKA PLAN HD TODAY UF TO TW CONT MIDODRINE VINNIE NEEDED ANTIBIOTICS WOUND CARE WILL FOLLOW NUBIA PATTON MD Jun 18, 2021 11:53
[2021-06-18] MEDS: TOPIRAMATE 100 MG TABLET. PO SCH ×2 (12:01→20:43)
[2021-06-18] MEDS: levETIRAcetam 500 MG TABLET PO SCH ×2 (12:02→20:43)
[2021-06-18] MEDS: CYANOCOBALAMIN (VITAMIN B-12) 1,000 MCG TABLET. PO SCH (12:02)
[2021-06-18] MEDS: ASPIRIN ENTERIC COATED 81 MG TABLET.DR. PO SCH (12:02)
[2021-06-18] MEDS: FLUCONAZOLE 100 MG TABLET. PO SCH (12:02)
[2021-06-18] MEDS: CHOLECALCIFEROL (VITAMIN D3) 1,000 UNIT TABLET PO SCH (12:02)
[2021-06-18] MEDS: LACTOBACILLUS RHAMNOSUS GG 1 CAPSULE. PO SCH ×2 (12:03→20:43)
[2021-06-18] MEDS: ATORVASTATIN CALCIUM 10 MG TABLET. PO SCH (12:03)
[2021-06-18] MEDS: EZETIMIBE 10 MG TABLET. PO SCH (12:03)
[2021-06-18] MEDS: PREGABALIN 75 MG CAPSULE PO SCH ×2 (12:04→20:42)
[2021-06-18] MEDS: PANTOPRAZOLE 40 MG TABLET.DR. PO SCH (12:04)
[2021-06-18] MEDS: MEROPENEM 500 MG in IV NORMAL SALINE 50ML 50 ML IV SCH (12:05)
[2021-06-18] MEDS: HYDROmorphone 2 MG/ML INJ. IVP PRN (12:31)
--- NOTE | 2021-06-18 12:32 | PDOC ---
PROGRESS NOTES Date of Service: DATE: 06/18/21 TIME: 12:30 Subjective Subjective seen in dialysis unit Objective Objective Vital Signs Date Time Temp Pulse Resp B/P (MAP) Pulse Ox O2 Delivery O2 Flow Rate FiO2 06/18/21 12:01 55 108/56 06/18/21 07:00 98.0 20 93 Room Air 98.0 06/17/21 21:52 2.0 Intake and Output 06/18/21 07:00 Intake Total 170 ml Balance 170 ml Intake Oral 170 ml Physical Exam Abdomen: Soft Heart: Other (AFIB) Extremities: No cyanosis, Other (Left TMA) General: Alert, Oriented X3, Cooperative, No acute distress HEENT: Atraumatic, Mucous membr. moist/pink Lungs: Other (diminished) MUSCULOSKELETAL: Osteoarthritic changes both hands Neuro: Normal speech, Sensation intact Psych/Mental Status: Mental status NL Skin: No breakdown Diagnosis Problem List Problems Medical Problems: (1) Altered mental status Status: Acute (2) COVID-19 Status: Acute (3) Draining postoperative wound Status: Acute (4) ESRD (end stage renal disease) on dialysis Status: Acute (5) Severe anemia Status: Acute Assessment Assessment Problems Medical Problems: (1) Altered mental status Status: Acute (2) COVID-19 Status: Acute (3) Draining postoperative wound Status: Acute (4) ESRD (end stage renal disease) on dialysis Status: Acute (5) Severe anemia Status: Acute A/P: 1. Chronic renal failure, on hemodialysis. 2. Diabetes. 3. Peripheral arterial disease. 4. Nonhealing left foot wound. 5, Covid infection PLAN:seen in dialysis, no new problems. spoke with window caser,pt september to different SNU monday spoke with vascular , continue antibiotic for now dialysis today POD#3 Left BKA, doing well. Plan Plan of Care Problems Medical Problems: (1) Altered mental status Status: Acute (2) COVID-19 Status: Acute (3) Draining postoperative wound Status: Acute (4) ESRD (end stage renal disease) on dialysis Status: Acute (5) Severe anemia Status: Acute Comment Review of Relevant I have reviewed the following items yifan (where applicable) has been applied. Labs Laboratory Tests Test 06/17/21 17:01 06/17/21 20:21 06/18/21 06:15 06/18/21 07:29 Glucose (Fingerstick) 157 mg/dL (70-99) 132 mg/dL (70-99) 140 mg/dL (70-99) White Blood Count 10.0 x10^3/uL (4.0-11.0) Red Blood Count 4.19 x10^6/uL (4.30-5.70) Hemoglobin 11.3 g/dL (13.0-17.5) Hematocrit 37.9 % (39.0-53.0) Mean Corpuscular Volume 91 fL (79-100) Mean Corpuscular Hemoglobin 27 pg (25-35) Mean Corpuscular Hemoglobin Concent 30 g/dL (31-37) Red Cell Distribution Width 25.8 % (11.5-14.5) Platelet Count 153 x10^3/uL (140-400) Sodium Level 138 mmol/L (136-145) Potassium Level 4.3 mmol/L (3.5-5.1) Chloride Level 100 mmol/L (98-107) Carbon Dioxide Level 24 mmol/L (21-32) Anion Gap 14 (6-14) Blood Urea Nitrogen 30 mg/dL (8-26) Creatinine 6.1 mg/dL (0.7-1.3) Estimated GFR (Cockcroft-Gault) 9.7 Glucose Level 143 mg/dL (70-99) Calcium Level 8.9 mg/dL (8.5-10.1) Random Vancomycin Level 25.2 mcg/mL Test 06/18/21 11:52 Glucose (Fingerstick) 104 mg/dL (70-99) Microbiology 05/28/21 Gram Stain - Final, Complete 05/28/21 Aerobic and Anaerobic Culture - Final, Complete 05/28/21 Antimicrobic Susceptibility - Final, Complete 05/26/21 Blood Culture - Final, Complete NO GROWTH AFTER 5 DAYS Medications Current Medications Info (PHARMACY MONITORING -- do not chart) 1 each PRN DAILY PRN MC SEE COMMENTS; Start 06/18/21 at 08:00 Midodrine (Proamatine) 2.5 mg [id number] PO Last administered on 06/17/21at 17:40; Start 06/17/21 at 18:00 Sodium Chloride 1,000 ml @ 400 mls/hr Q2H30M PRN IV PATENCY; Start 06/18/21 at 08:00; Stop 06/18/21 at 19:59 Sodium Chloride 1,000 ml @ 1,000 mls/hr Q1H PRN IV hypotension; Start 06/18/21 at 08:00; Stop 06/18/21 at 13:59 Vancomycin HCl (Vancomycin Random Level) 1 each 1X ONCE MC Last administered on 06/18/21at 05:00; Start 06/18/21 at 05:00; Stop 06/18/21 at 05:01; Status DC Vitals/I & O Vital Sign - Last 24 Hours 06/17/21 06/17/21 06/17/21 06/17/21 13:37 15:00 17:40 19:00 Temp 98.1 98.2 98.1 98.2 Pulse 87 55 55 75 Resp 16 16 B/P (MAP) 130/70 121/78 (92) 121/78 97/55 (69) Pulse Ox 91 98 O2 Delivery Room Air 06/17/21 06/17/21 06/17/21 06/17/21 20:04 21:22 21:52 23:00 Temp 98.0 98.0 Pulse 75 Resp 18 18 14 B/P (MAP) 102/62 (75) Pulse Ox 91 91 97 O2 Delivery Room Air Room Air Room Air Room Air O2 Flow Rate 2.0 2.0 06/18/21 06/18/21 06/18/21 06/18/21 03:00 07:00 09:00 12:01 Temp 97.4 98.0 97.4 98.0 Pulse 74 55 55 55 Resp 16 20 B/P (MAP) 131/66 (87) 108/56 (73) 108/56 108/56 Pulse Ox 93 O2 Delivery Room Air Room Air Intake and Output 06/17/21 06/17/21 06/18/21 15:00 23:00 07:00 Intake Total 50 ml 120 ml Balance 50 ml 120 ml Justifications for Admission Other Justification STEVO KERNS MD Jun 18, 2021 12:32
[2021-06-18] MEDS: VANCOMYCIN PER PHARMACY MC PRN (13:56)
[2021-06-18] MEDS: SODIUM HYPOCHLORITE 0.125% 473 ML BOTTLE. TP SCH (14:02)
--- NOTE | 2021-06-18 14:02 | NUR ---
Pharmacy Vancomycin Dosing Note S: Consulted to monitor and dose vancomycin started 05/26/21. O: FER CHAUDHARY is a 55 year old M with Sepsis, left foot infection . Other Antibiotics: FLUCONAZOLE 200 MG PO DAILY MERREM 1G IV Q24HRS LABS: Creatinine Clearance: ESRD HD Microbiology: FOOT WOUND: ENTEROBACTER, IRA BLOOD CX (05/26): NGTD Last Random level: 25.2 on 06/18/21 Last dose given 06/11/21 at 1653 Target Trough: 15-20 A: Based on: RANDOM Level this am P: 1. continue to hold VANCO 2. Follow up Random level on 06/21/21 at 0600 3. Pharmacy will continue to monitor, follow and adjust therapy as needed. [facility], 06/18/21 [id number]
[2021-06-18 15:00] VITALS: BP 115/64
--- NOTE | 2021-06-18 16:06 | PATHOLOGY ---
[facility] Accession Number: [id number] . 01 Material submitted: . leg - LEFT BELOW KNEE AMPUTATION. Modifiers: left, BELOW KNEE . 01 Clinical history: . PVD LEFT BELOW KNEE AMPUTATION . 02 Diagnosis: Left leg and foot, left below knee amputation: - Status post left forefoot amputation. - Ulceration, acute inflammation, hemorrhage, and granulation tissue of previous amputation site, with focal acute osteomyelitis of underlying bone. - Focal gangrenous necrosis, ulceration, and acute inflammation of ankle and heel regions. - Skin, and subcutaneous and skeletal muscle tissue of proximal amputation margin viable. - Atrophic changes of skeletal muscle tissue of foot and leg. (JPM:pit; 06/18/2021) QTP 06/18/2021 1600 Local . 02 Electronically signed: . Daniel Carrera MD, Pathologist NPI- [id number] . 01 Gross description: . The specimen is received fresh, labeled "Carlyle Cano, left below knee amputation". Received is a left below the knee amputation specimen with a previous forefoot amputation, measuring 33.1 cm from heel to anterior skin and soft tissue margin, 22.2 cm from heel to posterior skin and soft tissue margin, and 17.3 cm from the heel to previous forefoot amputation site, with 2.5 cm of exposed fibula, 1.6 cm of exposed tibia. The bony resection margin is flattened, smooth and firm. The previous forefoot amputation site measures 10.0 x 3.0 cm and appears partially gaping, centrally softened, back-yellow to pink, focally hemorrhagic, fibropurulent, with a dark brown, crusted, ill-defined, partially mummified borders. . Anterior to the ankle is a 4.0 x 4.0 cm, partially depressed, ill-defined, back-brown, crusted, flaky ulcerated lesion, located 23.5 cm from the anterior skin and soft tissue margin, and 5.5 cm from the previous forefoot amputation site. The heel displays a 3.0 x 2.5 cm, back-brown, centrally ulcerated lesion, with a flakey, crusted periphery, located 19.0 cm from the posterior skin and soft tissue margin. The skin overlying the distal head of the fibula displays a 1.2 x 1.0 cm, centrally ulcerated and crusty lesion, located 16.5 cm from the posterior skin and soft tissue margin. . The remaining skin surface appears back, and diffusely mottled with discoloration consistent with "age spots". The plantar surface of the foot is diffusely dry and flaky. Sectioning reveals the bone underlying the previous amputation site to appear back-arredondo, dusky, and focally softened. The bone underlying the heel ulceration appears back, firm and uninvolved. The bone underlying the anterior ankle ulceration appears back, firm and uninvolved. Sectioning through the vasculature reveals no discrete evidence of arteriosclerosis, thrombosis or stenosis. Photographs are taken, and contact center representative sections are submitted as follows, following decalcification: . A1 bone marrow from proximal margin A2 skin, soft tissue and vasculature margin A3 skin and soft tissue from previous forefoot amputation site A4 skin and soft tissue from additional ulcerated lesions (anterior ankle and heel) A5 bone underlying the previous forefoot amputation site A6 anterior tibialis artery (inked black) and posterior tibialis artery cross-sections (JGG; 06/17/2021) JGG/JGG 06/18/2021 [facility]5 Local . 02 Pathologist provided ICD-10: L97.929, L08.9, M86.172, I96 . 02 CPT . 798595, [id number] Specimen Comment: A courtesy copy of this report has been sent to [phone], [phone] Specimen Comment: [id number] Specimen Comment: Report sent to / DR WADE Performed at: [address], [place] [id number] MD Phillip Doe MD Phone: [phone] Performed at: 02 [facility] [address] [place], [place] [id number] MD Daniel Carrera MD Phone: [phone]
--- NOTE | 2021-06-18 16:12 | PDOC ---
TEJAL GUO TOLL GATE TENDER 06/18/21 1612: CARDIO Progress Notes Date and Time Date of Service 06/18/2021 Time of Evaluation 1500 Subjective Subjective: No Chest Pain, No shortness of breath, No Palpitations Vitals Vitals Vital Signs Date Time Temp Pulse Resp B/P (MAP) Pulse Ox O2 Delivery O2 Flow Rate FiO2 06/18/21 13:01 Room Air 06/18/21 12:01 55 108/56 06/18/21 07:00 98.0 20 93 98.0 06/17/21 21:52 2.0 Weight Weight [ ] Input and Output Intake and Output Intake and Output 06/18/21 07:00 Intake Total 170 ml Balance 170 ml Intake Oral 170 ml Laboratory Labs Laboratory Tests Test 06/17/21 17:01 06/17/21 20:21 06/18/21 06:15 06/18/21 07:29 Glucose (Fingerstick) 157 mg/dL (70-99) 132 mg/dL (70-99) 140 mg/dL (70-99) White Blood Count 10.0 x10^3/uL (4.0-11.0) Red Blood Count 4.19 x10^6/uL (4.30-5.70) Hemoglobin 11.3 g/dL (13.0-17.5) Hematocrit 37.9 % (39.0-53.0) Mean Corpuscular Volume 91 fL (79-100) Mean Corpuscular Hemoglobin 27 pg (25-35) Mean Corpuscular Hemoglobin Concent 30 g/dL (31-37) Red Cell Distribution Width 25.8 % (11.5-14.5) Platelet Count 153 x10^3/uL (140-400) Sodium Level 138 mmol/L (136-145) Potassium Level 4.3 mmol/L (3.5-5.1) Chloride Level 100 mmol/L (98-107) Carbon Dioxide Level 24 mmol/L (21-32) Anion Gap 14 (6-14) Blood Urea Nitrogen 30 mg/dL (8-26) Creatinine 6.1 mg/dL (0.7-1.3) Estimated GFR (Cockcroft-Gault) 9.7 Glucose Level 143 mg/dL (70-99) Calcium Level 8.9 mg/dL (8.5-10.1) Random Vancomycin Level 25.2 mcg/mL Test 06/18/21 11:52 Glucose (Fingerstick) 104 mg/dL (70-99) Microbiology Micro Microbiology 05/28/21 Gram Stain - Final, Complete 05/28/21 Aerobic and Anaerobic Culture - Final, Complete 05/28/21 Antimicrobic Susceptibility - Final, Complete 05/26/21 Blood Culture - Final, Complete NO GROWTH AFTER 5 DAYS Review of Systems Constitutional: yes: other (CONFUSED) Ears/Nose/Throat: Yes: no symptom reported Eyes: Yes: no symptom reported Pulmonary: Yes no symptom reported Cardiovascular: Yes no symptom reported Gastrointestional: Yes: constipation Genitourinary: Yes: no symptom reported Musculoskeletal: Yes: leg pain, foot pain Skin: Yes no symptom reported Psychiatric/Neurological: Yes: depressed Endocrine: Yes: no symptom reported Hematologic/Lymphatic: Yes: no symptom reported Physical Exam HEENT: Neck Supple W Full Motion Chest: Symmetric LUNGS: Other (diminished bases ) Heart: RRR (atrial flutter) Abdomen: Soft N/T Extremities: Other (LBKA) Neurology: alert, oriented, follow commands Assessment Assessment 1. COVID + 2. Acute encephalopathy: resolved 3. ESRD on HD 4. PAFIB: rate controlled in atrial flutter. stable 5. CAD: s/p CABG. unclear if any recent w/u, clinically stable 6. HTN; controlled overall 7. DM2 8. S/P LBKA POD#3 9. Anemia: s/p transfusion. hgb stable. 11.3 10. Sepsis 11. Hx of mild CM: Limited echo with EF 30-35% 12. Mild to moderate , moderate to severe TR. Estimated PAP 60 mmHg. 13. Severe LLE PAD: Abdominal aortogram revealed no significant aortoiliac disease bilaterally and moderate diffuse 50 to 60% stenosis involving the SFA with one-vessel runoff bilaterally. Recommendations Continued metoprolol for rate control Poor candidate for anticoagulation with anemia and prior hx of SDH. Continue baby ASA for stroke prevention Secondary prevention measures Fluid offloading via HD Continue COVID treatment Supportive care. Outpt ischemic workup if none recent Justicifation of Admission Dx: Justifications for Admission: Justification of Admission Dx: N/A CARRIE MCCLAIN MD 06/18/21 8686: CARDIO Progress Notes Plan Plan The patient was seen and interviewed as well as examined at the bedside. The chart was reviewed. The case was discussed. Agree with the plan of care. TEJAL GUO APRN Jun 18, 2021 16:12 CARRIE MCCLAIN MD Jun 18, 2021 17:34
[2021-06-18 19:00] VITALS: BP 103/52
[2021-06-18] MEDS: DULoxetine HCL 30 MG CAPSULE.DR PO SCH (20:43)
[2021-06-18] MEDS: traZODone 50 MG TABLET. PO SCH (20:43)
[2021-06-18] MEDS: MIRTAZAPINE 15 MG TABLET PO SCH (20:43)
[2021-06-18] MEDS: EPOETIN ALFA-EPBX for ESRD 20,000 UNIT/ML VIAL. SQ SCH (20:44)
[2021-06-18 23:00] VITALS: BP 108/72
[2021-06-19 03:00] VITALS: BP 124/55
[2021-06-19 07:00] VITALS: BP 126/63
[2021-06-19] MEDS: PREGABALIN 75 MG CAPSULE PO SCH ×3 (09:51→10:40)
[2021-06-19] MEDS: LACTOBACILLUS RHAMNOSUS GG 1 CAPSULE. PO SCH ×2 (09:52→21:32)
[2021-06-19] MEDS: MEROPENEM 500 MG in IV NORMAL SALINE 50ML 50 ML IV SCH (09:52)
[2021-06-19] MEDS: EZETIMIBE 10 MG TABLET. PO SCH (09:52)
[2021-06-19] MEDS: ATORVASTATIN CALCIUM 10 MG TABLET. PO SCH (09:52)
[2021-06-19] MEDS: TOPIRAMATE 100 MG TABLET. PO SCH ×2 (09:52→21:31)
[2021-06-19] MEDS: CHOLECALCIFEROL (VITAMIN D3) 1,000 UNIT TABLET PO SCH (09:52)
[2021-06-19] MEDS: CYANOCOBALAMIN (VITAMIN B-12) 1,000 MCG TABLET. PO SCH (09:53)
[2021-06-19] MEDS: MIDODRINE 2.5 MG TABLET PO SCH ×3 (09:53→17:56)
[2021-06-19] MEDS: FLUCONAZOLE 100 MG TABLET. PO SCH (09:53)
[2021-06-19] MEDS: PANTOPRAZOLE 40 MG TABLET.DR. PO SCH (09:53)
[2021-06-19] MEDS: levETIRAcetam 500 MG TABLET PO SCH ×2 (09:53→21:32)
[2021-06-19] MEDS: ASPIRIN ENTERIC COATED 81 MG TABLET.DR. PO SCH (09:53)
[2021-06-19] MEDS: INSULIN LISPRO 300 UNITS/3 ML VIAL. SQ SCH ×3 (10:03→17:00)
[2021-06-19] MEDS: METOPROLOL SUCC 24HR ER 50 MG TAB.ER.24H. PO SCH (10:22)
[2021-06-19 11:00] VITALS: BP 116/71
--- NOTE | 2021-06-19 12:12 | PDOC ---
PROGRESS NOTES Date of Service: DATE: 06/19/21 TIME: 12:09 Subjective Subjective no new problems Objective Objective Vital Signs Date Time Temp Pulse Resp B/P (MAP) Pulse Ox O2 Delivery O2 Flow Rate FiO2 06/19/21 10:22 80 126/63 06/19/21 08:00 Room Air 06/19/21 07:00 98.0 20 95 98.0 Intake and Output 06/19/21 06:59 Intake Total 50 ml Balance 50 ml Intake Oral 0 ml IV Total 50 ml # Voids 1 Physical Exam Abdomen: Soft Heart: Other (AFIB) Extremities: No cyanosis, Other (Left TMA) General: Alert, Oriented X3, Cooperative, No acute distress HEENT: Atraumatic, Mucous membr. moist/pink Lungs: Other (diminished) MUSCULOSKELETAL: Osteoarthritic changes both hands Neuro: Normal speech, Sensation intact Psych/Mental Status: Mental status NL Skin: No breakdown COMMENT Lt BKA Diagnosis Problem List Problems Medical Problems: (1) Altered mental status Status: Acute (2) COVID-19 Status: Acute (3) Draining postoperative wound Status: Acute (4) ESRD (end stage renal disease) on dialysis Status: Acute (5) Severe anemia Status: Acute Assessment Assessment Problems Medical Problems: (1) Altered mental status Status: Acute (2) COVID-19 Status: Acute (3) Draining postoperative wound Status: Acute (4) ESRD (end stage renal disease) on dialysis Status: Acute (5) Severe anemia Status: Acute A/P: 1. Chronic renal failure, on hemodialysis. 2. Diabetes. 3. Peripheral arterial disease. 4. Nonhealing left foot wound. 5, Covid infection PLAN:seen in dialysis, no new problems. spoke with clinical case manager,pt september to different [facility] monday spoke with vascular , can stop antibiotics POD#4 Left BKA, doing well. d/c IV antibiotics Plan Plan of Care Problems Medical Problems: (1) Altered mental status Status: Acute (2) COVID-19 Status: Acute (3) Draining postoperative wound Status: Acute (4) ESRD (end stage renal disease) on dialysis Status: Acute (5) Severe anemia Status: Acute Comment Review of Relevant I have reviewed the following items yifan (where applicable) has been applied. Labs Laboratory Tests Test 06/18/21 16:50 06/18/21 20:28 06/19/21 08:00 06/19/21 12:01 Glucose (Fingerstick) 130 mg/dL (70-99) 125 mg/dL (70-99) 161 mg/dL (70-99) 150 mg/dL (70-99) Microbiology 05/28/21 Gram Stain - Final, Complete 05/28/21 Aerobic and Anaerobic Culture - Final, Complete 05/28/21 Antimicrobic Susceptibility - Final, Complete 05/26/21 Blood Culture - Final, Complete NO GROWTH AFTER 5 DAYS Medications Current Medications Vancomycin HCl (Vancomycin Random Level) 1 each 1X ONCE MC ; Start 06/21/21 at 06:00; Stop 06/21/21 at 06:01 Vitals/I & O Vital Sign - Last 24 Hours 06/18/21 06/18/21 06/18/21 06/18/21 12:31 13:01 15:00 18:00 Temp 98.5 98.5 Pulse 63 82 Resp 20 B/P (MAP) 115/64 (81) 127/70 Pulse Ox 96 O2 Delivery Room Air Room Air Room Air 06/18/21 06/18/21 06/18/21 06/19/21 19:00 19:45 23:00 03:00 Temp 98.9 98.5 98.1 98.9 98.5 98.1 Pulse 80 78 85 Resp 18 16 16 B/P (MAP) 103/52 (69) 108/72 (84) 124/55 (78) Pulse Ox 95 91 94 O2 Delivery Room Air Room Air Room Air Room Air 06/19/21 06/19/21 06/19/21 06/19/21 07:00 08:00 09:53 10:22 Temp 98.0 98.0 Pulse 80 80 80 Resp 20 B/P (MAP) 126/63 (84) 126/63 126/63 Pulse Ox 95 O2 Delivery Room Air Room Air Intake and Output 06/18/21 06/18/21 06/19/21 14:59 22:59 06:59 Intake Total 50 ml 0 ml Balance 50 ml 0 ml Justifications for Admission Other Justification STEVO KERNS MD Jun 19, 2021 12:11
[2021-06-19 15:00] VITALS: BP 93/57
--- NOTE | 2021-06-19 16:16 | PDOC ---
PROGRESS NOTES Date of Service DATE: 06/19/21 TIME: 16:14 Subjective Subjective Patient seen and evaluated. Objective Objective Vital Signs Date Time Temp Pulse Resp B/P (MAP) Pulse Ox O2 Delivery O2 Flow Rate FiO2 06/19/21 12:33 80 126/63 06/19/21 11:00 98.3 20 100 Room Air 98.3 06/17/21 21:52 2.0 Intake and Output 06/19/21 07:00 Intake Total 50 ml Balance 50 ml Intake Oral 0 ml IV Total 50 ml # Voids 1 Physical Exam Physical Exam Visual examination secondary to COVID status. Assessment Assessment Problems Medical Problems: (1) Altered mental status Status: Acute (2) COVID-19 Status: Acute (3) Draining postoperative wound Status: Acute (4) ESRD (end stage renal disease) on dialysis Status: Acute (5) Severe anemia Status: Acute COVID +. Continuing present treatment. Acute encephalopathy: resolved ESRD on HD as per the renal service. PAFIB: rate controlled in atrial flutter. stable. Continuing beta-blockers and low-dose aspirin. CAD: s/p CABG. unclear if any recent w/u, clinically stable HTN; controlled overall DM2 S/P LBKA POD#4 Anemia: s/p transfusion. hgb stable. Sepsis Hx of mild CM: Limited echo with EF 30-35% Mild to moderate , moderate to severe TR. Estimated PAP 60 mmHg. Severe LLE PAD: Abdominal aortogram revealed no significant aortoiliac disease bilaterally and moderate diffuse 50 to 60% stenosis involving the SFA with one- vessel runoff bilaterally. Comment Review of Relevant I have reviewed the following items yifan (where applicable) has been applied. Labs Laboratory Tests Test 06/17/21 17:01 06/17/21 20:21 06/18/21 06:15 06/18/21 07:29 Glucose (Fingerstick) 157 mg/dL (70-99) 132 mg/dL (70-99) 140 mg/dL (70-99) White Blood Count 10.0 x10^3/uL (4.0-11.0) Red Blood Count 4.19 x10^6/uL (4.30-5.70) Hemoglobin 11.3 g/dL (13.0-17.5) Hematocrit 37.9 % (39.0-53.0) Mean Corpuscular Volume 91 fL (79-100) Mean Corpuscular Hemoglobin 27 pg (25-35) Mean Corpuscular Hemoglobin Concent 30 g/dL (31-37) Red Cell Distribution Width 25.8 % (11.5-14.5) Platelet Count 153 x10^3/uL (140-400) Sodium Level 138 mmol/L (136-145) Potassium Level 4.3 mmol/L (3.5-5.1) Chloride Level 100 mmol/L (98-107) Carbon Dioxide Level 24 mmol/L (21-32) Anion Gap 14 (6-14) Blood Urea Nitrogen 30 mg/dL (8-26) Creatinine 6.1 mg/dL (0.7-1.3) Estimated GFR (Cockcroft-Gault) 9.7 Glucose Level 143 mg/dL (70-99) Calcium Level 8.9 mg/dL (8.5-10.1) Random Vancomycin Level 25.2 mcg/mL Test 06/18/21 11:52 06/18/21 16:50 06/18/21 20:28 06/19/21 08:00 Glucose (Fingerstick) 104 mg/dL (70-99) 130 mg/dL (70-99) 125 mg/dL (70-99) 161 mg/dL (70-99) Test 06/19/21 12:01 Glucose (Fingerstick) 150 mg/dL (70-99) Laboratory Tests Test 06/18/21 16:50 06/18/21 20:28 06/19/21 08:00 06/19/21 12:01 Glucose (Fingerstick) 130 mg/dL (70-99) 125 mg/dL (70-99) 161 mg/dL (70-99) 150 mg/dL (70-99) Microbiology 05/28/21 Gram Stain - Final, Complete 05/28/21 Aerobic and Anaerobic Culture - Final, Complete 05/28/21 Antimicrobic Susceptibility - Final, Complete 05/26/21 Blood Culture - Final, Complete NO GROWTH AFTER 5 DAYS Medications Current Medications Sodium Chloride 1,000 ml @ 1,000 mls/hr 1X ONCE IV ; Start 05/26/21 at 01:30; Stop 05/26/21 at 02:29; Status DC Piperacillin Sod/ Tazobactam Sod (Zosyn Per Pharmacy) 1 each PRN DAILY PRN MC SEE COMMENTS; Start 05/26/21 at 01:30; Status Cancel Piperacillin Sod/ Tazobactam Sod 3.375 gm/Sodium Chloride 50 ml @ 100 mls/hr 1X ONCE IV Last administered on 05/26/21at 03:25; Start 05/26/21 at 02:15; Stop 05/26/21 at 02:44; Status DC Vancomycin HCl (Vanco Per Pharmacy) 1 each PRN DAILY PRN MC SEE COMMENTS Last administered on 06/18/21at 13:56; Start 05/26/21 at 03:15; Stop 06/19/21 at 12:13; Status DC Sodium Chloride 500 ml @ 500 mls/hr 1X ONCE IV Last administered on 05/26/21at 03:25; Start 05/26/21 at 03:30; Stop 05/26/21 at 04:29; Status DC Ondansetron HCl (Zofran) 4 mg PRN Q8HRS PRN IVP NAUSEA/VOMITING; Start 05/26/21 at 03:30; Stop 05/27/21 at 03:29; Status DC Acetaminophen (Tylenol) 650 mg PRN Q4HRS PRN PO FEVER > 100.3'F; Start 05/26/21 at 03:30; Stop 05/27/21 at 03:29; Status DC Insulin Human Lispro (HumaLOG) 0-5 UNITS TIDWMEALS SQ Last administered on 05/26/21at 09:09; Start 05/26/21 at 08:00; Stop 05/26/21 at 12:46; Status DC Dextrose (Dextrose 50%-Water Syringe) 12.5 gm PRN Q15MIN PRN IV SEE COMMENTS; Start 05/26/21 at 03:30; Status Cancel Vancomycin HCl 1.75 gm/Sodium Chloride 500 ml @ 250 mls/hr 1X ONCE IV Last administered on 05/26/21at 05:47; Start 05/26/21 at 06:00; Stop 05/26/21 at 07:59; Status DC Piperacillin Sod/ Tazobactam Sod 2.25 gm/Sodium Chloride 50 ml @ 100 mls/hr Q8HRS IV Last administered on 06/02/21at 05:35; Start 05/26/21 at 08:00; Stop 06/02/21 at 08:27; Status DC Sodium Hypochlorite (Dakin'S 1/4 Strength) 1 lópez BID TP Last administered on 06/09/21 20:23; Start 05/26/21 at 11:00; Stop 06/11/21 at 10:19; Status DC Aspirin (Ecotrin) 81 mg DAILY PO Last administered on 06/19/21 09:53; Start 05/26/21 at 14:00 Atorvastatin Calcium (Lipitor) 10 mg DAILY PO Last administered on 06/19/21 09:52; Start 05/26/21 at 14:00 Cyanocobalamin (Vitamin B-12) 1,000 mcg DAILY PO Last administered on 06/19/21 09:53; Start 05/27/21 at 09:00 EZETIMIBE (Zetia) 10 mg DAILY PO Last administered on 06/19/21 09:52; Start 05/26/21 at 14:00 Topiramate (Topamax) 100 mg BID PO Last administered on 06/19/21 09:52; Start 05/26/21 at 14:00 Trazodone HCl (Desyrel) 50 mg QHS PO Last administered on 06/18/21 20:43; Start 05/26/21 at 21:00 Vitamin D (Vitamin D3) 1,000 unit DAILY PO Last administered on 06/19/21 09:52; Start 05/26/21 at 14:00 Duloxetine HCl (Cymbalta) 60 mg HS PO Last administered on 06/18/21 20:43; Start 05/26/21 at 21:00 Non-Formulary Medication (Icosapent Ethyl (Vascepa)) 2 cap BID PO ; Start 05/26/21 at 21:00; Status UNV Mirtazapine (Remeron) 45 mg QHS PO Last administered on 06/18/21 20:43; Start 05/26/21 at 21:00 Pantoprazole Sodium (Protonix) 40 mg DAILYAC PO Last administered on 06/19/21 09:53; Start 05/26/21 at 14:00 Pregabalin (Lyrica) 225 mg BID PO Last administered on 06/19/21at 10:40; Start 05/26/21 at 14:00 Promethazine HCl (Phenergan) 25 mg PRN Q6HRS PRN PO NAUSEA/VOMITING Last administered on 06/17/21 21:21; Start 05/26/21 at 13:00 Levetiracetam 100 ml @ 400 mls/hr Q12HR IV ; Start 05/26/21 at 21:00; Status UNV Insulin Human Lispro (HumaLOG) 0-5 UNITS TIDWMEALS SQ Last administered on 06/19/21at 10:03; Start 05/26/21 at 17:00 Dextrose (Dextrose 50%-Water Syringe) 12.5 gm PRN Q15MIN PRN IV SEE COMMENTS; Start 05/26/21 at 12:45 Levetiracetam (Keppra) 500 mg BID PO ; Start 05/26/21 at 14:00; Status Cancel Lactobacillus Rhamnosus (Culturelle) 1 cap BID PO Last administered on 06/19/21at 09:52; Start 05/26/21 at 21:00 Levetiracetam 100 ml @ 400 mls/hr Q12HR IV Last administered on 05/29/21at 21:38; Start 05/26/21 at 14:00; Stop 05/29/21 at 23:00; Status DC Epoetin Catalino-epbx (RETACRIT for ESRD PTS) 10,000 unit MoWeFr@2100 SQ Last administered on 06/18/21at 20:44; Start 05/26/21 at 21:00 Vancomycin HCl (Vancomycin Random Level) 1 each 1X ONCE MC Last administered on 05/27/21at 05:00; Start 05/27/21 at 05:00; Stop 05/27/21 at 05:01; Status DC Info (PHARMACY MONITORING -- do not chart) 1 each PRN DAILY PRN MC SEE COMMENTS; Start 05/26/21 at 18:30; Status Cancel Vancomycin HCl (Vancomycin Random Level) 1 each 1X ONCE MC Last administered on 05/29/21at 06:00; Start 05/29/21 at 06:00; Stop 05/29/21 at 06:01; Status DC Sodium Chloride 1,000 ml @ 1,000 mls/hr Q1H PRN IV hypotension; Start 05/28/21 at 11:45; Stop 05/28/21 at 17:44; Status DC Sodium Chloride (Normal Saline Flush) 10 ml 1X PRN PRN IV AP catheter pack; Start 05/28/21 at 11:45; Stop 05/29/21 at 11:44; Status DC Sodium Chloride (Normal Saline Flush) 10 ml 1X PRN PRN IV [employer] catheter pack; Start 05/28/21 at 11:45; Stop 05/29/21 at 11:44; Status DC Sodium Chloride 1,000 ml @ 400 mls/hr Q2H30M PRN IV PATENCY; Start 05/28/21 at 11:45; Stop 05/28/21 at 23:44; Status DC Info (PHARMACY MONITORING -- do not chart) 1 each PRN DAILY PRN MC SEE COMMENTS; Start 05/28/21 at 11:45; Status UNV Info (PHARMACY MONITORING -- do not chart) 1 each PRN DAILY PRN MC SEE COMMENTS; Start 05/28/21 at 11:45; Status UNV Metoprolol Succinate (Toprol Xl) 50 mg DAILY PO Last administered on 06/19/21at 10:22; Start 05/28/21 at 14:00 Vancomycin HCl (Vancomycin Random Level) 1 each 1X ONCE MC Last administered on 06/02/21at 06:00; Start 06/02/21 at 06:00; Stop 06/02/21 at 06:01; Status DC Levetiracetam (Keppra) 500 mg BID PO Last administered on 06/19/21at 09:53; Start 05/30/21 at 09:00 Perflutren Protein Type A Microsphe (Optison) 0.66 mg 1X ONCE IV ; Start 05/31/21 at 08:15; Stop 05/31/21 at 08:16; Status DC Sodium Chloride 1,000 ml @ 1,000 mls/hr Q1H PRN IV hypotension; Start 05/31/21 at 10:15; Stop 05/31/21 at 16:14; Status DC Albumin Human 200 ml @ 200 mls/hr 1X PRN PRN IV Hypotension; Start 05/31/21 at 10:15; Stop 05/31/21 at 16:14; Status DC Sodium Chloride 1,000 ml @ 400 mls/hr Q2H30M PRN IV PATENCY; Start 05/31/21 at 10:15; Stop 05/31/21 at 22:14; Status DC Info (PHARMACY MONITORING -- do not chart) 1 each PRN DAILY PRN MC SEE COMMENTS; Start 05/31/21 at 10:15; Status Cancel Meropenem 500 mg/ Sodium Chloride 50 ml @ 100 mls/hr DAILY IV Last administered on 06/19/21at 09:52; Start 06/02/21 at 09:00; Stop 06/19/21 at 22:00 Fluconazole (Diflucan) 200 mg DAILY PO Last administered on 06/19/21at 09:53; Start 06/02/21 at 09:00 Vancomycin HCl 500 mg/Sodium Chloride 100 ml @ 100 mls/hr QMWF IV Last administered on 06/11/21at 14:47; Start 06/04/21 at 16:00; Stop 06/14/21 at 12:18; Status DC Sodium Chloride 1,000 ml @ 1,000 mls/hr Q1H PRN IV hypotension; Start 06/02/21 at 14:15; Stop 06/02/21 at 20:14; Status DC Albumin Human 100 ml @ 200 mls/hr 1X PRN PRN IV Hypotension Last administered on 06/02/21at 15:00; Start 06/02/21 at 14:15; Stop 06/02/21 at 20:14; Status DC Sodium Chloride 1,000 ml @ 400 mls/hr Q2H30M PRN IV PATENCY; Start 06/02/21 at 14:15; Stop 06/03/21 at 02:14; Status DC Info (PHARMACY MONITORING -- do not chart) 1 each PRN DAILY PRN MC SEE COMMENTS; Start 06/02/21 at 14:15; Status Cancel Info (PHARMACY MONITORING -- do not chart) 1 each PRN DAILY PRN MC SEE COMMENTS; Start 06/02/21 at 14:15; Status Cancel Sodium Chloride 1,000 ml @ 1,000 mls/hr Q1H PRN IV hypotension; Start 06/04/21 at 08:15; Stop 06/04/21 at 14:14; Status DC Albumin Human 200 ml @ 200 mls/hr 1X PRN PRN IV Hypotension; Start 06/04/21 at 08:15; Stop 06/04/21 at 14:14; Status DC Sodium Chloride (Normal Saline Flush) 10 ml 1X PRN PRN IV AP catheter pack; Start 06/04/21 at 08:15; Stop 06/05/21 at 08:14; Status DC Sodium Chloride (Normal Saline Flush) 10 ml 1X PRN PRN IV [employer] catheter pack; Start 06/04/21 at 08:15; Stop 06/05/21 at 08:14; Status DC Sodium Chloride 1,000 ml @ 400 mls/hr Q2H30M PRN IV PATENCY; Start 06/04/21 at 08:15; Stop 06/04/21 at 20:14; Status DC Info (PHARMACY MONITORING -- do not chart) 1 each PRN DAILY PRN MC SEE COMMENTS; Start 06/04/21 at 08:15; Status UNV Info (PHARMACY MONITORING -- do not chart) 1 each PRN DAILY PRN MC SEE COMMENTS; Start 06/04/21 at 08:15; Stop 06/09/21 at 07:47; Status DC Sodium Chloride 1,000 ml @ 1,000 mls/hr Q1H PRN IV hypotension; Start 06/07/21 at 09:15; Stop 06/07/21 at 15:14; Status DC Albumin Human 200 ml @ 200 mls/hr 1X PRN PRN IV Hypotension; Start 06/07/21 at 09:15; Stop 06/07/21 at 15:14; Status DC Sodium Chloride 1,000 ml @ 400 mls/hr Q2H30M PRN IV PATENCY; Start 06/07/21 at 09:15; Stop 06/07/21 at 21:14; Status DC Info (PHARMACY MONITORING -- do not chart) 1 each PRN DAILY PRN MC SEE COMMENTS; Start 06/07/21 at 09:15; Status UNV Heparin Sodium/ Sodium Chloride (HEPARIN for ARTERIAL LINE FLUSH) 1,000 unit 1X ONCE IART Last administered on 06/07/21at 15:10; Start 06/07/21 at 14:45; Stop 06/07/21 at 14:46; Status DC Heparin Sodium/ Sodium Chloride (HEPARIN for ARTERIAL LINE FLUSH) 1,000 unit 1X ONCE IART Last administered on 06/07/21at 15:10; Start 06/07/21 at 14:45; Stop 06/07/21 at 14:46; Status DC Midazolam HCl (Versed) 2 mg 1X ONCE IV Last administered on 06/07/21at 15:18; Start 06/07/21 at 14:45; Stop 06/07/21 at 14:46; Status DC Fentanyl Citrate (Fentanyl 2ml Vial) 100 mcg 1X ONCE IV Last administered on 06/07/21at 15:28; Start 06/07/21 at 14:45; Stop 06/07/21 at 14:46; Status DC Iodixanol (Visipaque 320) 100 ml 1X ONCE IART Last administered on 06/07/21at 15:10; Start 06/07/21 at 14:45; Stop 06/07/21 at 14:46; Status DC Lidocaine HCl (Lidocaine 1% 20ml Vial) 20 ml 1X ONCE INJ Last administered on 06/07/21at 15:11; Start 06/07/21 at 14:45; Stop 06/07/21 at 14:46; Status DC Iodixanol (Visipaque 320) 100 ml STK-MED ONCE .ROUTE ; Start 06/07/21 at 11:49; Stop 06/08/21 at 13:36; Status DC Heparin Sodium/ Sodium Chloride 500 ml @ As Directed STK-MED ONCE .ROUTE ; Start 06/07/21 at 11:49; Stop 06/08/21 at 13:36; Status DC Lidocaine HCl (Lidocaine 1% 20ml Vial) 20 ml STK-MED ONCE .ROUTE ; Start 06/07/21 at 12:03; Stop 06/08/21 at 13:37; Status DC Heparin Sodium/ Sodium Chloride 1,000 ml @ As Directed STK-MED ONCE .ROUTE ; Start 06/07/21 at 12:03; Stop 06/08/21 at 13:37; Status DC Midazolam HCl (Versed) 2 mg STK-MED ONCE .ROUTE ; Start 06/07/21 at 14:14; Stop 06/08/21 at 13:38; Status DC Fentanyl Citrate (Fentanyl 2ml Vial) 100 mcg STK-MED ONCE .ROUTE ; Start 06/07/21 at 14:15; Stop 06/08/21 at 13:38; Status DC Heparin Sodium (Porcine) (Heparin Sodium) 10,000 unit STK-MED ONCE .ROUTE ; Start 06/07/21 at 14:15; Stop 06/08/21 at 13:38; Status DC Cefazolin Sodium 1 gm/Sodium Chloride 500 ml @ 500 mls/hr 1X ONCE IRR ; Start 06/09/21 at 06:00; Stop 06/09/21 at 07:00; Status DC Fentanyl Citrate (Fentanyl 2ml Vial) 25 mcg PRN Q5MIN PRN IVP MILD PAIN 1-3; Start 06/09/21 at 06:00; Stop 06/09/21 at 17:24; Status DC Fentanyl Citrate (Fentanyl 2ml Vial) 50 mcg PRN Q5MIN PRN IVP MODERATE PAIN 4- 6; Start 06/09/21 at 06:00; Stop 06/09/21 at 17:24; Status DC Morphine Sulfate (Morphine Sulfate) 1 mg PRN Q10MIN PRN IVP SEVERE PAIN 7-10; Start 06/09/21 at 06:00; Stop 06/09/21 at 17:24; Status DC Ringer's Solution 1,000 ml @ 30 mls/hr Q24H IV ; Start 06/09/21 at 06:00; Stop 06/09/21 at 17:24; Status DC Hydromorphone HCl (Dilaudid) 0.5 mg PRN Q10MIN PRN IVP SEVERE PAIN 7-10, 2nd CHOICE; Start 06/09/21 at 06:00; Stop 06/09/21 at 17:24; Status DC Prochlorperazine Edisylate (Compazine) 5 mg PACU PRN PRN IVP NAUSEA, MRX1; Start 06/09/21 at 06:00; Stop 06/09/21 at 17:25; Status DC Sodium Chloride 1,000 ml @ 1,000 mls/hr Q1H PRN IV hypotension; Start 06/09/21 at 07:45; Stop 06/09/21 at 13:44; Status DC Sodium Chloride 1,000 ml @ 400 mls/hr Q2H30M PRN IV PATENCY; Start 06/09/21 at 07:45; Stop 06/09/21 at 19:44; Status DC Info (PHARMACY MONITORING -- do not chart) 1 each PRN DAILY PRN MC SEE COMMENTS; Start 06/09/21 at 07:45; Stop 06/09/21 at 07:48; Status DC Info (PHARMACY MONITORING -- do not chart) 1 each PRN DAILY PRN MC SEE COMMENTS; Start 06/09/21 at 07:45; Status Cancel Sodium Chloride 1,000 ml @ 1,000 mls/hr Q1H PRN IV hypotension; Start 06/11/21 at 08:45; Stop 06/11/21 at 14:44; Status DC Sodium Chloride (Normal Saline Flush) 10 ml 1X PRN PRN IV AP catheter pack; Start 06/11/21 at 08:45; Stop 06/12/21 at 08:44; Status DC Sodium Chloride (Normal Saline Flush) 10 ml 1X PRN PRN IV [employer] catheter pack; Start 06/11/21 at 08:45; Stop 06/12/21 at 08:44; Status DC Info (PHARMACY MONITORING -- do not chart) 1 each PRN DAILY PRN MC SEE COMMENTS; Start 06/11/21 at 08:45; Status UNV Info (PHARMACY MONITORING -- do not chart) 1 each PRN DAILY PRN MC SEE COMMENTS; Start 06/11/21 at 08:45; Status Cancel Sodium Hypochlorite (Dakin'S 1/4 Strength) 1 lópez QODAY TP Last administered on 06/18/21at 14:02; Start 06/12/21 at 08:00 Vancomycin HCl (Vancomycin Random Level) 1 each 1X ONCE MC ; Start 06/14/21 at 06:00; Stop 06/14/21 at 06:01; Status DC Sodium Chloride 1,000 ml @ 1,000 mls/hr Q1H PRN IV hypotension; Start 06/14/21 at 08:00; Stop 06/14/21 at 13:59; Status DC Albumin Human 100 ml @ 200 mls/hr 1X PRN PRN IV Hypotension Last administered on 06/14/21at 10:45; Start 06/14/21 at 08:00; Stop 06/14/21 at 13:59; Status DC Sodium Chloride 1,000 ml @ 400 mls/hr Q2H30M PRN IV PATENCY; Start 06/14/21 at 08:00; Stop 06/14/21 at 19:59; Status DC Info (PHARMACY MONITORING -- do not chart) 1 each PRN DAILY PRN MC SEE COMMENTS; Start 06/14/21 at 08:00; Status UNV Info (PHARMACY MONITORING -- do not chart) 1 each PRN DAILY PRN MC SEE COMMENTS; Start 06/14/21 at 08:00; Status Cancel Cefazolin Sodium 1 gm/Sodium Chloride 500 ml @ 500 mls/hr 1X ONCE IRR Last administered on 06/15/21at 12:02; Start 06/15/21 at 06:00; Stop 06/15/21 at 07:00; Status DC Fentanyl Citrate (Fentanyl 2ml Vial) 25 mcg PRN Q5MIN PRN IVP MILD PAIN 1-3; Start 06/15/21 at 06:00; Stop 06/16/21 at 05:59; Status DC Fentanyl Citrate (Fentanyl 2ml Vial) 50 mcg PRN Q5MIN PRN IVP MODERATE PAIN 4-6 Last administered on 06/15/21at 13:25; Start 06/15/21 at 06:00; Stop 06/16/21 at 05:59; Status DC Morphine Sulfate (Morphine Sulfate) 1 mg PRN Q10MIN PRN IVP SEVERE PAIN 7-10; Start 06/15/21 at 06:00; Stop 06/16/21 at 05:59; Status DC Ringer's Solution 1,000 ml @ 30 mls/hr Q24H IV ; Start 06/15/21 at 06:00; Stop 06/15/21 at 17:59; Status DC Hydromorphone HCl (Dilaudid) 0.5 mg PRN Q10MIN PRN IVP SEVERE PAIN 7-10, 2nd CHOICE; Start 06/15/21 at 06:00; Stop 06/16/21 at 05:59; Status DC Prochlorperazine Edisylate (Compazine) 5 mg PACU PRN PRN IVP NAUSEA, MRX1; Start 06/15/21 at 06:00; Stop 06/16/21 at 05:59; Status DC Sodium Chloride 1,000 ml @ 30 mls/hr Q24H IV Last administered on 06/15/21at 10:00; Start 06/15/21 at 10:00; Stop 06/16/21 at 16:10; Status DC Oxycodone/ Acetaminophen (Percocet 5/325) 1 tab PRN Q4HRS PRN PO PAIN Last administered on 06/17/21at 11:56; Start 06/15/21 at 11:45 Hydromorphone HCl (Dilaudid) 0.2 mg PRN Q4HRS PRN IVP PAIN Last administered on 06/18/21at 12:31; Start 06/15/21 at 11:45 Oxycodone/ Acetaminophen (Percocet 5/325) 2 tab PRN Q4HRS PRN PO BREAKTHROUGH PAIN Last administered on 06/17/21at 21:22; Start 06/15/21 at 12:00 Vancomycin HCl (Vancomycin Random Level) 1 each 1X ONCE MC Last administered on 06/18/21at 05:00; Start 06/18/21 at 05:00; Stop 06/18/21 at 05:01; Status DC Sodium Chloride 1,000 ml @ 1,000 mls/hr Q1H PRN IV hypotension; Start 06/16/21 at 16:00; Stop 06/16/21 at 21:59; Status DC Sodium Chloride 1,000 ml @ 400 mls/hr Q2H30M PRN IV PATENCY; Start 06/16/21 at 16:00; Stop 06/17/21 at 03:59; Status DC Info (PHARMACY MONITORING -- do not chart) 1 each PRN DAILY PRN MC SEE COMMENTS; Start 06/16/21 at 16:00; Status Cancel Sodium Chloride 1,000 ml @ 1,000 mls/hr Q1H PRN IV hypotension; Start 06/16/21 at 18:30; Stop 06/17/21 at 00:29; Status DC Albumin Human 200 ml @ 200 mls/hr 1X PRN PRN IV Hypotension; Start 06/16/21 at 18:30; Stop 06/17/21 at 00:29; Status DC Sodium Chloride (Normal Saline Flush) 10 ml 1X PRN PRN IV AP catheter pack; Start 06/16/21 at 18:30; Stop 06/17/21 at 18:29; Status DC Sodium Chloride (Normal Saline Flush) 10 ml 1X PRN PRN IV [employer] catheter pack; Start 06/16/21 at 18:30; Stop 06/17/21 at 18:29; Status DC Sodium Chloride 1,000 ml @ 400 mls/hr Q2H30M PRN IV PATENCY; Start 06/16/21 at 18:30; Stop 06/17/21 at 06:29; Status DC Info (PHARMACY MONITORING -- do not chart) 1 each PRN DAILY PRN MC SEE COMMENTS; Start 06/16/21 at 18:30; Status UNV Info (PHARMACY MONITORING -- do not chart) 1 each PRN DAILY PRN MC SEE COMMENTS; Start 06/16/21 at 18:30 Midodrine (Proamatine) 2.5 mg [id number] PO Last administered on 06/19/21at 09:53; Start 06/17/21 at 18:00 Sodium Chloride 1,000 ml @ 1,000 mls/hr Q1H PRN IV hypotension; Start 06/18/21 at 08:00; Stop 06/18/21 at 13:59; Status DC Sodium Chloride 1,000 ml @ 400 mls/hr Q2H30M PRN IV PATENCY; Start 06/18/21 at 08:00; Stop 06/18/21 at 19:59; Status DC Info (PHARMACY MONITORING -- do not chart) 1 each PRN DAILY PRN MC SEE COMMENTS; Start 06/18/21 at 08:00; Status Cancel Propofol (Diprivan) 200 mg STK-MED ONCE IV ; Start 06/15/21 at 10:53; Stop 06/18/21 at 12:36; Status DC Lidocaine HCl (Xylocaine-Mpf 1% 5ml Vial) 5 ml STK-MED ONCE .ROUTE ; Start 06/15/21 at 10:53; Stop 06/18/21 at 12:36; Status DC Fentanyl Citrate (Fentanyl 2ml Vial) 100 mcg STK-MED ONCE .ROUTE ; Start 06/15/21 at 10:53; Stop 06/18/21 at 12:36; Status DC Ephedrine Sulfate (Akovaz) 50 mg STK-MED ONCE .ROUTE ; Start 06/15/21 at 12:18; Stop 06/18/21 at 12:36; Status DC Phenylephrine HCl (PHENYLEPHRINE in 0.9% NACL PF) 1 mg STK-MED ONCE IV ; Start 06/15/21 at 12:18; Stop 06/18/21 at 12:36; Status DC Glycopyrrolate (Robinul) 1 mg STK-MED ONCE .ROUTE ; Start 06/15/21 at 12:38; Stop 06/18/21 at 12:36; Status DC Fentanyl Citrate (Fentanyl 2ml Vial) 100 mcg STK-MED ONCE .ROUTE ; Start 06/15/21 at 13:22; Stop 06/18/21 at 12:36; Status DC Vancomycin HCl (Vancomycin Random Level) 1 each 1X ONCE MC ; Start 06/21/21 at 06:00; Stop 06/19/21 at 12:13; Status DC Active Scripts Active Metoprolol Succinate 50 Mg Tab.er.24h 50 Mg PO DAILY 30 Days Levetiracetam 500 Mg Tablet 500 Mg PO BID 30 Days Reported Trazodone Hcl 50 Mg Tablet 1 Tab PO QHS Xultophy 100 Unit-3.6 mg/ml (Insulin Degludec/Liraglutide) 3 Ml Insuln.pen 24 Ml SQ HS Vitamin D (Cholecalciferol (Vitamin D3)) 1,000 Unit Capsule 1 Cap PO DAILY Atorvastatin Calcium 10 Mg Tablet 10 Mg PO DAILY Sildenafil (Sildenafil Citrate) 20 Mg Tablet 20 Mg PO TID Zetia (Ezetimibe) 10 Mg Tablet 10 Mg PO DAILY Omeprazole 40 Mg Capsule.dr 40 Mg PO DAILY Topiramate 100 Mg Tablet 100 Mg PO BID Promethazine Hcl 25 Mg Tablet 25 Mg PO Q6H PRN B-12 (Cyanocobalamin (Vitamin B-12)) 1,000 Mcg Tablet 1,000 Mcg PO DAILY Vascepa (Icosapent Ethyl) 1 Gm Capsule 2 Cap PO BID Aspirin Ec (Aspirin) 81 Mg Tablet.dr 81 Mg PO DAILY Duloxetine Hcl 60 Mg Capsule.dr 60 Mg PO HS Lyrica (Pregabalin) 225 Mg Capsule 225 Mg PO BID Losartan-Hctz 100-25 Mg Tab (Losartan/Hydrochlorothiazide) 1 Each Tablet 25 Mg PO DAILY Mirtazapine 45 Mg Tablet 45 Mg PO HS Amlodipine Besylate 5 Mg Tablet 5 Mg PO DAILY Vitals/I & O Vital Sign - Last 24 Hours 06/18/21 06/18/21 06/18/21 06/18/21 18:00 19:00 19:45 23:00 Temp 98.9 98.5 98.9 98.5 Pulse 82 80 78 Resp 18 16 B/P (MAP) 127/70 103/52 (69) 108/72 (84) Pulse Ox 95 91 O2 Delivery Room Air Room Air Room Air 06/19/21 06/19/21 06/19/21 06/19/21 03:00 07:00 08:00 09:53 Temp 98.1 98.0 98.1 98.0 Pulse 85 80 80 Resp 16 20 B/P (MAP) 124/55 (78) 126/63 (84) 126/63 Pulse Ox 94 95 O2 Delivery Room Air Room Air Room Air 06/19/21 06/19/21 06/19/21 10:22 11:00 12:33 Temp 98.3 98.3 Pulse 80 72 80 Resp 20 B/P (MAP) 126/63 116/71 (86) 126/63 Pulse Ox 100 O2 Delivery Room Air Intake and Output 06/18/21 06/18/21 06/19/21 15:00 23:00 07:00 Intake Total 50 ml 0 ml Balance 50 ml 0 ml Justifications for Admission Other Justification ADELAIDA DELEON MD Jun 19, 2021 16:16
[2021-06-19 19:00] VITALS: BP 104/60
[2021-06-19] MEDS: MIRTAZAPINE 15 MG TABLET PO SCH (21:32)
[2021-06-19] MEDS: traZODone 50 MG TABLET. PO SCH (21:32)
[2021-06-19] MEDS: DULoxetine HCL 30 MG CAPSULE.DR PO SCH (21:34)
[2021-06-19 23:00] VITALS: BP 120/72
[2021-06-20 03:00] VITALS: BP 106/63
[2021-06-20] MEDS: MIDODRINE 2.5 MG TABLET PO SCH ×3 (06:12→17:23)
[2021-06-20] MEDS: PANTOPRAZOLE 40 MG TABLET.DR. PO SCH (06:14)
[2021-06-20 07:00] VITALS: BP 120/69
[2021-06-20] MEDS: INSULIN LISPRO 300 UNITS/3 ML VIAL. SQ SCH ×3 (08:45→17:22)
[2021-06-20] MEDS: levETIRAcetam 500 MG TABLET PO SCH ×2 (08:47→21:13)
[2021-06-20] MEDS: CYANOCOBALAMIN (VITAMIN B-12) 1,000 MCG TABLET. PO SCH (08:47)
[2021-06-20] MEDS: EZETIMIBE 10 MG TABLET. PO SCH (08:47)
[2021-06-20] MEDS: LACTOBACILLUS RHAMNOSUS GG 1 CAPSULE. PO SCH ×2 (08:47→21:10)
[2021-06-20] MEDS: ASPIRIN ENTERIC COATED 81 MG TABLET.DR. PO SCH (08:47)
[2021-06-20] MEDS: ATORVASTATIN CALCIUM 10 MG TABLET. PO SCH (08:47)
[2021-06-20] MEDS: TOPIRAMATE 100 MG TABLET. PO SCH ×2 (08:47→21:14)
[2021-06-20] MEDS: CHOLECALCIFEROL (VITAMIN D3) 1,000 UNIT TABLET PO SCH (08:48)
[2021-06-20] MEDS: METOPROLOL SUCC 24HR ER 50 MG TAB.ER.24H. PO SCH (08:48)
[2021-06-20] MEDS: SODIUM HYPOCHLORITE 0.125% 473 ML BOTTLE. TP SCH (09:00)
[2021-06-20] MEDS: FLUCONAZOLE 100 MG TABLET. PO SCH (09:23)
[2021-06-20 11:00] VITALS: BP 99/53
--- NOTE | 2021-06-20 11:22 | PDOC ---
PROGRESS NOTES Date of Service: DATE: 06/20/21 TIME: 11:20 Subjective Subjective no new problems Objective Objective Vital Signs Date Time Temp Pulse Resp B/P (MAP) Pulse Ox O2 Delivery O2 Flow Rate FiO2 06/20/21 08:48 68 120/69 06/20/21 08:00 Room Air 06/20/21 07:00 98.2 20 94 98.2 Intake and Output 06/20/21 07:00 Intake Total 120 ml Balance 120 ml Intake Oral 120 ml # Voids 1 Physical Exam Abdomen: Soft Heart: Other (AFIB) Extremities: No cyanosis, Other (Left TMA) General: Cooperative, No acute distress HEENT: Atraumatic, Mucous membr. moist/pink Lungs: Other (diminished) MUSCULOSKELETAL: Osteoarthritic changes both hands Psych/Mental Status: Mood NL COMMENT Lt BKA Diagnosis Problem List Problems Medical Problems: (1) Altered mental status Status: Acute (2) COVID-19 Status: Acute (3) Draining postoperative wound Status: Acute (4) ESRD (end stage renal disease) on dialysis Status: Acute (5) Severe anemia Status: Acute Assessment Assessment Problems Medical Problems: (1) Altered mental status Status: Acute (2) COVID-19 Status: Acute (3) Draining postoperative wound Status: Acute (4) ESRD (end stage renal disease) on dialysis Status: Acute (5) Severe anemia Status: Acute A/P: 1. Chronic renal failure, on hemodialysis. 2. Diabetes. 3. Peripheral arterial disease. 4. Nonhealing left foot wound. 5, Covid infection PLAN:d/javan IV antibiotics seen in dialysis, no new problems. spoke with case management social worker,pt september to different [facility] monday spoke with vascular , can stop antibiotics POD#5 Left BKA, doing well. Plan Plan of Care Problems Medical Problems: (1) Altered mental status Status: Acute (2) COVID-19 Status: Acute (3) Draining postoperative wound Status: Acute (4) ESRD (end stage renal disease) on dialysis Status: Acute (5) Severe anemia Status: Acute Comment Review of Relevant I have reviewed the following items yifan (where applicable) has been applied. Labs Laboratory Tests Test 06/19/21 12:01 06/19/21 17:07 06/19/21 20:27 06/20/21 08:00 Glucose (Fingerstick) 150 mg/dL (70-99) 127 mg/dL (70-99) 174 mg/dL (70-99) 168 mg/dL (70-99) Microbiology 05/28/21 Gram Stain - Final, Complete 05/28/21 Aerobic and Anaerobic Culture - Final, Complete 05/28/21 Antimicrobic Susceptibility - Final, Complete 05/26/21 Blood Culture - Final, Complete NO GROWTH AFTER 5 DAYS Medications Current Medications Vancomycin HCl (Vancomycin Random Level) 1 each 1X ONCE [facility] ; Start 06/21/21 at 06:00; Stop 06/19/21 at 12:13; Status DC Vitals/I & O Vital Sign - Last 24 Hours 06/19/21 06/19/21 06/19/21 06/19/21 12:33 15:00 17:56 19:00 Temp 98.6 97.6 98.6 97.6 Pulse 80 58 58 72 Resp 20 16 B/P (MAP) 126/63 93/57 (69) 93/57 104/60 (75) Pulse Ox 92 94 O2 Delivery Room Air Room Air 06/19/21 06/19/21 06/20/21 06/20/21 20:00 23:00 03:00 06:12 Temp 97.8 98.0 97.8 98.0 Pulse 72 70 77 Resp 18 16 B/P (MAP) 120/72 (88) 106/63 (77) 137/71 Pulse Ox 95 94 O2 Delivery Room Air Room Air Room Air 06/20/21 06/20/21 06/20/21 07:00 08:00 08:48 Temp 98.2 98.2 Pulse 68 68 Resp 20 B/P (MAP) 120/69 (86) 120/69 Pulse Ox 94 O2 Delivery Room Air Room Air Intake and Output 06/19/21 06/19/21 06/20/21 15:00 23:00 07:00 Intake Total 120 ml Balance 120 ml Justifications for Admission Other Justification STEVO KERNS MD Jun 20, 2021 11:22
[2021-06-20 15:00] VITALS: BP 120/77
--- NOTE | 2021-06-20 15:14 | PDOC ---
PROGRESS NOTES Date of Service DATE: 06/20/21 TIME: 15:12 Subjective Subjective Patient seen and examined Objective Objective Vital Signs Date Time Temp Pulse Resp B/P (MAP) Pulse Ox O2 Delivery O2 Flow Rate FiO2 06/20/21 11:50 58 99/53 06/20/21 11:00 97.8 20 96 Room Air 97.8 06/17/21 21:52 2.0 Intake and Output 06/20/21 07:00 Intake Total 120 ml Balance 120 ml Intake Oral 120 ml # Voids 1 Physical Exam Abdomen: Normal bowel sounds Heart: Regular rate General: mild distress Lungs: Other (Mildly decreased breath sounds) Assessment Assessment Problems Medical Problems: (1) Altered mental status Status: Acute (2) COVID-19 Status: Acute (3) Draining postoperative wound Status: Acute (4) ESRD (end stage renal disease) on dialysis Status: Acute (5) Severe anemia Status: Acute COVID status being updated. Continue present treatment. Acute encephalopathy: resolved ESRD on HD as per the renal service. HD today PAFIB: rate controlled in atrial flutter. stable. Continuing beta-blockers and low-dose aspirin. CAD: s/p CABG. unclear if any recent w/u, clinically stable HTN; controlled overall DM2 S/P LBKA POD#5 Anemia: s/p transfusion. hgb stable. Hx of mild CM: Limited echo with EF 30-35% Mild to moderate , moderate to severe TR. Estimated PAP 60 mmHg. Severe LLE PAD: Abdominal aortogram revealed no significant aortoiliac disease bilaterally and moderate diffuse 50 to 60% stenosis involving the SFA with one- vessel runoff bilaterally. Comment Review of Relevant I have reviewed the following items yifan (where applicable) has been applied. Labs Laboratory Tests Test 06/18/21 16:50 06/18/21 20:28 06/19/21 08:00 06/19/21 12:01 Glucose (Fingerstick) 130 mg/dL (70-99) 125 mg/dL (70-99) 161 mg/dL (70-99) 150 mg/dL (70-99) Test 06/19/21 17:07 06/19/21 20:27 06/20/21 08:00 06/20/21 11:26 Glucose (Fingerstick) 127 mg/dL (70-99) 174 mg/dL (70-99) 168 mg/dL (70-99) 123 mg/dL (70-99) Laboratory Tests Test 06/19/21 17:07 06/19/21 20:27 06/20/21 08:00 06/20/21 11:26 Glucose (Fingerstick) 127 mg/dL (70-99) 174 mg/dL (70-99) 168 mg/dL (70-99) 123 mg/dL (70-99) Microbiology 05/28/21 Gram Stain - Final, Complete 05/28/21 Aerobic and Anaerobic Culture - Final, Complete 05/28/21 Antimicrobic Susceptibility - Final, Complete 05/26/21 Blood Culture - Final, Complete NO GROWTH AFTER 5 DAYS Medications Current Medications Sodium Chloride 1,000 ml @ 1,000 mls/hr 1X ONCE IV ; Start 05/26/21 at 01:30; Stop 05/26/21 at 02:29; Status DC Piperacillin Sod/ Tazobactam Sod (Zosyn Per Pharmacy) 1 each PRN DAILY PRN MC SEE COMMENTS; Start 05/26/21 at 01:30; Status Cancel Piperacillin Sod/ Tazobactam Sod 3.375 gm/Sodium Chloride 50 ml @ 100 mls/hr 1X ONCE IV Last administered on 05/26/21at 03:25; Start 05/26/21 at 02:15; Stop 05/26/21 at 02:44; Status DC Vancomycin HCl (Vanco Per Pharmacy) 1 each PRN DAILY PRN MC SEE COMMENTS Last administered on 06/18/21at 13:56; Start 05/26/21 at 03:15; Stop 06/19/21 at 12:13; Status DC Sodium Chloride 500 ml @ 500 mls/hr 1X ONCE IV Last administered on 05/26/21at 03:25; Start 05/26/21 at 03:30; Stop 05/26/21 at 04:29; Status DC Ondansetron HCl (Zofran) 4 mg PRN Q8HRS PRN IVP NAUSEA/VOMITING; Start 05/26/21 at 03:30; Stop 05/27/21 at 03:29; Status DC Acetaminophen (Tylenol) 650 mg PRN Q4HRS PRN PO FEVER > 100.3'F; Start 05/26/21 at 03:30; Stop 05/27/21 at 03:29; Status DC Insulin Human Lispro (HumaLOG) 0-5 UNITS TIDWMEALS SQ Last administered on 05/26/21at 09:09; Start 05/26/21 at 08:00; Stop 05/26/21 at 12:46; Status DC Dextrose (Dextrose 50%-Water Syringe) 12.5 gm PRN Q15MIN PRN IV SEE COMMENTS; Start 05/26/21 at 03:30; Status Cancel Vancomycin HCl 1.75 gm/Sodium Chloride 500 ml @ 250 mls/hr 1X ONCE IV Last administered on 05/26/21at 05:47; Start 05/26/21 at 06:00; Stop 05/26/21 at 07:59; Status DC Piperacillin Sod/ Tazobactam Sod 2.25 gm/Sodium Chloride 50 ml @ 100 mls/hr Q8HRS IV Last administered on 06/02/21at 05:35; Start 05/26/21 at 08:00; Stop 06/02/21 at 08:27; Status DC Sodium Hypochlorite (Dakin'S 1/4 Strength) 1 lópez BID TP Last administered on 06/09/21at 20:23; Start 05/26/21 at 11:00; Stop 06/11/21 at 10:19; Status DC Aspirin (Ecotrin) 81 mg DAILY PO Last administered on 06/20/21 08:47; Start 05/26/21 at 14:00 Atorvastatin Calcium (Lipitor) 10 mg DAILY PO Last administered on 06/20/21 08:47; Start 05/26/21 at 14:00 Cyanocobalamin (Vitamin B-12) 1,000 mcg DAILY PO Last administered on 06/20/21 08:47; Start 05/27/21 at 09:00 EZETIMIBE (Zetia) 10 mg DAILY PO Last administered on 06/20/21 08:47; Start 05/26/21 at 14:00 Topiramate (Topamax) 100 mg BID PO Last administered on 06/20/21 08:47; Start 05/26/21 at 14:00 Trazodone HCl (Desyrel) 50 mg QHS PO Last administered on 06/19/21at 21:32; Start 05/26/21 at 21:00 Vitamin D (Vitamin D3) 1,000 unit DAILY PO Last administered on 06/20/21 08:48; Start 05/26/21 at 14:00 Duloxetine HCl (Cymbalta) 60 mg HS PO Last administered on 06/19/21 21:34; Start 05/26/21 at 21:00 Non-Formulary Medication (Icosapent Ethyl (Vascepa)) 2 cap BID PO ; Start 05/26/21 at 21:00; Status UNV Mirtazapine (Remeron) 45 mg QHS PO Last administered on 06/19/21 21:32; Start 05/26/21 at 21:00 Pantoprazole Sodium (Protonix) 40 mg DAILYAC PO Last administered on 06/20/21 06:14; Start 05/26/21 at 14:00 Pregabalin (Lyrica) 225 mg BID PO Last administered on 06/19/21 10:40; Start 05/26/21 at 14:00 Promethazine HCl (Phenergan) 25 mg PRN Q6HRS PRN PO NAUSEA/VOMITING Last administered on 06/17/21 21:21; Start 05/26/21 at 13:00 Levetiracetam 100 ml @ 400 mls/hr Q12HR IV ; Start 05/26/21 at 21:00; Status UNV Insulin Human Lispro (HumaLOG) 0-5 UNITS TIDWMEALS SQ Last administered on 06/20/21 08:45; Start 05/26/21 at 17:00 Dextrose (Dextrose 50%-Water Syringe) 12.5 gm PRN Q15MIN PRN IV SEE COMMENTS; Start 05/26/21 at 12:45 Levetiracetam (Keppra) 500 mg BID PO ; Start 05/26/21 at 14:00; Status Cancel Lactobacillus Rhamnosus (Culturelle) 1 cap BID PO Last administered on 06/20/21 08:47; Start 05/26/21 at 21:00 Levetiracetam 100 ml @ 400 mls/hr Q12HR IV Last administered on 05/29/21at 21:38; Start 05/26/21 at 14:00; Stop 05/29/21 at 23:00; Status DC Epoetin Catalino-epbx (RETACRIT for ESRD PTS) 10,000 unit MoWeFr@2100 SQ Last administered on 06/18/21at 20:44; Start 05/26/21 at 21:00 Vancomycin HCl (Vancomycin Random Level) 1 each 1X ONCE MC Last administered on 05/27/21at 05:00; Start 05/27/21 at 05:00; Stop 05/27/21 at 05:01; Status DC Info (PHARMACY MONITORING -- do not chart) 1 each PRN DAILY PRN MC SEE COMMENTS; Start 05/26/21 at 18:30; Status Cancel Vancomycin HCl (Vancomycin Random Level) 1 each 1X ONCE MC Last administered on 05/29/21at 06:00; Start 05/29/21 at 06:00; Stop 05/29/21 at 06:01; Status DC Sodium Chloride 1,000 ml @ 1,000 mls/hr Q1H PRN IV hypotension; Start 05/28/21 at 11:45; Stop 05/28/21 at 17:44; Status DC Sodium Chloride (Normal Saline Flush) 10 ml 1X PRN PRN IV AP catheter pack; Start 05/28/21 at 11:45; Stop 05/29/21 at 11:44; Status DC Sodium Chloride (Normal Saline Flush) 10 ml 1X PRN PRN IV OPERATIONAL RISK MANAGER catheter pack; Start 05/28/21 at 11:45; Stop 05/29/21 at 11:44; Status DC Sodium Chloride 1,000 ml @ 400 mls/hr Q2H30M PRN IV PATENCY; Start 05/28/21 at 11:45; Stop 05/28/21 at 23:44; Status DC Info (PHARMACY MONITORING -- do not chart) 1 each PRN DAILY PRN MC SEE COMMENTS; Start 05/28/21 at 11:45; Status UNV Info (PHARMACY MONITORING -- do not chart) 1 each PRN DAILY PRN MC SEE COMMENTS; Start 05/28/21 at 11:45; Status UNV Metoprolol Succinate (Toprol Xl) 50 mg DAILY PO Last administered on 06/20/21at 08:48; Start 05/28/21 at 14:00 Vancomycin HCl (Vancomycin Random Level) 1 each 1X ONCE MC Last administered on 06/02/21at 06:00; Start 06/02/21 at 06:00; Stop 06/02/21 at 06:01; Status DC Levetiracetam (Keppra) 500 mg BID PO Last administered on 06/20/21at 08:47; Start 05/30/21 at 09:00 Perflutren Protein Type A Microsphe (Optison) 0.66 mg 1X ONCE IV ; Start 05/31/21 at 08:15; Stop 05/31/21 at 08:16; Status DC Sodium Chloride 1,000 ml @ 1,000 mls/hr Q1H PRN IV hypotension; Start 05/31/21 at 10:15; Stop 05/31/21 at 16:14; Status DC Albumin Human 200 ml @ 200 mls/hr 1X PRN PRN IV Hypotension; Start 05/31/21 at 10:15; Stop 05/31/21 at 16:14; Status DC Sodium Chloride 1,000 ml @ 400 mls/hr Q2H30M PRN IV PATENCY; Start 05/31/21 at 10:15; Stop 05/31/21 at 22:14; Status DC Info (PHARMACY MONITORING -- do not chart) 1 each PRN DAILY PRN MC SEE COMMENTS ; Start 05/31/21 at 10:15; Status Cancel Meropenem 500 mg/ Sodium Chloride 50 ml @ 100 mls/hr DAILY IV Last administered on 06/19/21at 09:52; Start 06/02/21 at 09:00; Stop 06/19/21 at 22:00; Status DC Fluconazole (Diflucan) 200 mg DAILY PO Last administered on 06/20/21at 09:23; Start 06/02/21 at 09:00 Vancomycin HCl 500 mg/Sodium Chloride 100 ml @ 100 mls/hr QMWF IV Last administered on 06/11/21at 14:47; Start 06/04/21 at 16:00; Stop 06/14/21 at 12:18; Status DC Sodium Chloride 1,000 ml @ 1,000 mls/hr Q1H PRN IV hypotension; Start 06/02/21 at 14:15; Stop 06/02/21 at 20:14; Status DC Albumin Human 100 ml @ 200 mls/hr 1X PRN PRN IV Hypotension Last administered on 06/02/21at 15:00; Start 06/02/21 at 14:15; Stop 06/02/21 at 20:14; Status DC Sodium Chloride 1,000 ml @ 400 mls/hr Q2H30M PRN IV PATENCY; Start 06/02/21 at 14:15; Stop 06/03/21 at 02:14; Status DC Info (PHARMACY MONITORING -- do not chart) 1 each PRN DAILY PRN MC SEE COMMENTS; Start 06/02/21 at 14:15; Status Cancel Info (PHARMACY MONITORING -- do not chart) 1 each PRN DAILY PRN MC SEE COMMENTS; Start 06/02/21 at 14:15; Status Cancel Sodium Chloride 1,000 ml @ 1,000 mls/hr Q1H PRN IV hypotension; Start 06/04/21 at 08:15; Stop 06/04/21 at 14:14; Status DC Albumin Human 200 ml @ 200 mls/hr 1X PRN PRN IV Hypotension; Start 06/04/21 at 08:15; Stop 06/04/21 at 14:14; Status DC Sodium Chloride (Normal Saline Flush) 10 ml 1X PRN PRN IV AP catheter pack; Start 06/04/21 at 08:15; Stop 06/05/21 at 08:14; Status DC Sodium Chloride (Normal Saline Flush) 10 ml 1X PRN PRN IV OPERATIONAL RISK MANAGER catheter pack; Start 06/04/21 at 08:15; Stop 06/05/21 at 08:14; Status DC Sodium Chloride 1,000 ml @ 400 mls/hr Q2H30M PRN IV PATENCY; Start 06/04/21 at 08:15; Stop 06/04/21 at 20:14; Status DC Info (PHARMACY MONITORING -- do not chart) 1 each PRN DAILY PRN MC SEE COMMENTS; Start 06/04/21 at 08:15; Status UNV Info (PHARMACY MONITORING -- do not chart) 1 each PRN DAILY PRN MC SEE COMMENTS; Start 06/04/21 at 08:15; Stop 06/09/21 at 07:47; Status DC Sodium Chloride 1,000 ml @ 1,000 mls/hr Q1H PRN IV hypotension; Start 06/07/21 at 09:15; Stop 06/07/21 at 15:14; Status DC Albumin Human 200 ml @ 200 mls/hr 1X PRN PRN IV Hypotension; Start 06/07/21 at 09:15; Stop 06/07/21 at 15:14; Status DC Sodium Chloride 1,000 ml @ 400 mls/hr Q2H30M PRN IV PATENCY; Start 06/07/21 at 09:15; Stop 06/07/21 at 21:14; Status DC Info (PHARMACY MONITORING -- do not chart) 1 each PRN DAILY PRN MC SEE COMMENTS; Start 06/07/21 at 09:15; Status UNV Heparin Sodium/ Sodium Chloride (HEPARIN for ARTERIAL LINE FLUSH) 1,000 unit 1X ONCE IART Last administered on 06/07/21at 15:10; Start 06/07/21 at 14:45; Stop 06/07/21 at 14:46; Status DC Heparin Sodium/ Sodium Chloride (HEPARIN for ARTERIAL LINE FLUSH) 1,000 unit 1X ONCE IART Last administered on 06/07/21at 15:10; Start 06/07/21 at 14:45; Stop 06/07/21 at 14:46; Status DC Midazolam HCl (Versed) 2 mg 1X ONCE IV Last administered on 06/07/21at 15:18; Start 06/07/21 at 14:45; Stop 06/07/21 at 14:46; Status DC Fentanyl Citrate (Fentanyl 2ml Vial) 100 mcg 1X ONCE IV Last administered on 06/07/21at 15:28; Start 06/07/21 at 14:45; Stop 06/07/21 at 14:46; Status DC Iodixanol (Visipaque 320) 100 ml 1X ONCE IART Last administered on 06/07/21at 15:10; Start 06/07/21 at 14:45; Stop 06/07/21 at 14:46; Status DC Lidocaine HCl (Lidocaine 1% 20ml Vial) 20 ml 1X ONCE INJ Last administered on 06/07/21at 15:11; Start 06/07/21 at 14:45; Stop 06/07/21 at 14:46; Status DC Iodixanol (Visipaque 320) 100 ml STK-MED ONCE .ROUTE ; Start 06/07/21 at 11:49; Stop 06/08/21 at 13:36; Status DC Heparin Sodium/ Sodium Chloride 500 ml @ As Directed STK-MED ONCE .ROUTE ; Start 06/07/21 at 11:49; Stop 06/08/21 at 13:36; Status DC Lidocaine HCl (Lidocaine 1% 20ml Vial) 20 ml STK-MED ONCE .ROUTE ; Start 06/07/21 at 12:03; Stop 06/08/21 at 13:37; Status DC Heparin Sodium/ Sodium Chloride 1,000 ml @ As Directed STK-MED ONCE .ROUTE ; Start 06/07/21 at 12:03; Stop 06/08/21 at 13:37; Status DC Midazolam HCl (Versed) 2 mg STK-MED ONCE .ROUTE ; Start 06/07/21 at 14:14; Stop 06/08/21 at 13:38; Status DC Fentanyl Citrate (Fentanyl 2ml Vial) 100 mcg STK-MED ONCE .ROUTE ; Start 06/07/21 at 14:15; Stop 06/08/21 at 13:38; Status DC Heparin Sodium (Porcine) (Heparin Sodium) 10,000 unit STK-MED ONCE .ROUTE ; Start 06/07/21 at 14:15; Stop 06/08/21 at 13:38; Status DC Cefazolin Sodium 1 gm/Sodium Chloride 500 ml @ 500 mls/hr 1X ONCE IRR ; Start 06/09/21 at 06:00; Stop 06/09/21 at 07:00; Status DC Fentanyl Citrate (Fentanyl 2ml Vial) 25 mcg PRN Q5MIN PRN IVP MILD PAIN 1-3; Start 06/09/21 at 06:00; Stop 06/09/21 at 17:24; Status DC Fentanyl Citrate (Fentanyl 2ml Vial) 50 mcg PRN Q5MIN PRN IVP MODERATE PAIN 4- 6; Start 06/09/21 at 06:00; Stop 06/09/21 at 17:24; Status DC Morphine Sulfate (Morphine Sulfate) 1 mg PRN Q10MIN PRN IVP SEVERE PAIN 7-10; Start 06/09/21 at 06:00; Stop 06/09/21 at 17:24; Status DC Ringer's Solution 1,000 ml @ 30 mls/hr Q24H IV ; Start 06/09/21 at 06:00; Stop 06/09/21 at 17:24; Status DC Hydromorphone HCl (Dilaudid) 0.5 mg PRN Q10MIN PRN IVP SEVERE PAIN 7-10, 2nd CHOICE; Start 06/09/21 at 06:00; Stop 06/09/21 at 17:24; Status DC Prochlorperazine Edisylate (Compazine) 5 mg PACU PRN PRN IVP NAUSEA, MRX1; Start 06/09/21 at 06:00; Stop 06/09/21 at 17:25; Status DC Sodium Chloride 1,000 ml @ 1,000 mls/hr Q1H PRN IV hypotension; Start 06/09/21 at 07:45; Stop 06/09/21 at 13:44; Status DC Sodium Chloride 1,000 ml @ 400 mls/hr Q2H30M PRN IV PATENCY; Start 06/09/21 at 07:45; Stop 06/09/21 at 19:44; Status DC Info (PHARMACY MONITORING -- do not chart) 1 each PRN DAILY PRN MC SEE COMMENTS; Start 06/09/21 at 07:45; Stop 06/09/21 at 07:48; Status DC Info (PHARMACY MONITORING -- do not chart) 1 each PRN DAILY PRN MC SEE COMMENTS; Start 06/09/21 at 07:45; Status Cancel Sodium Chloride 1,000 ml @ 1,000 mls/hr Q1H PRN IV hypotension; Start 06/11/21 at 08:45; Stop 06/11/21 at 14:44; Status DC Sodium Chloride (Normal Saline Flush) 10 ml 1X PRN PRN IV AP catheter pack; Start 06/11/21 at 08:45; Stop 06/12/21 at 08:44; Status DC Sodium Chloride (Normal Saline Flush) 10 ml 1X PRN PRN IV OPERATIONAL RISK MANAGER catheter pack; Start 06/11/21 at 08:45; Stop 06/12/21 at 08:44; Status DC Info (PHARMACY MONITORING -- do not chart) 1 each PRN DAILY PRN MC SEE COMMENTS; Start 06/11/21 at 08:45; Status UNV Info (PHARMACY MONITORING -- do not chart) 1 each PRN DAILY PRN MC SEE COMMENTS; Start 06/11/21 at 08:45; Status Cancel Sodium Hypochlorite (Dakin'S 1/4 Strength) 1 lópez QODAY TP Last administered on 06/18/21at 14:02; Start 06/12/21 at 08:00 Vancomycin HCl (Vancomycin Random Level) 1 each 1X ONCE MC ; Start 06/14/21 at 06:00; Stop 06/14/21 at 06:01; Status DC Sodium Chloride 1,000 ml @ 1,000 mls/hr Q1H PRN IV hypotension; Start 06/14/21 at 08:00; Stop 06/14/21 at 13:59; Status DC Albumin Human 100 ml @ 200 mls/hr 1X PRN PRN IV Hypotension Last administered on 06/14/21at 10:45; Start 06/14/21 at 08:00; Stop 06/14/21 at 13:59; Status DC Sodium Chloride 1,000 ml @ 400 mls/hr Q2H30M PRN IV PATENCY; Start 06/14/21 at 08:00; Stop 06/14/21 at 19:59; Status DC Info (PHARMACY MONITORING -- do not chart) 1 each PRN DAILY PRN MC SEE COMMENTS; Start 06/14/21 at 08:00; Status UNV Info (PHARMACY MONITORING -- do not chart) 1 each PRN DAILY PRN MC SEE COMMENTS; Start 06/14/21 at 08:00; Status Cancel Cefazolin Sodium 1 gm/Sodium Chloride 500 ml @ 500 mls/hr 1X ONCE IRR Last administered on 06/15/21at 12:02; Start 06/15/21 at 06:00; Stop 06/15/21 at 07:00; Status DC Fentanyl Citrate (Fentanyl 2ml Vial) 25 mcg PRN Q5MIN PRN IVP MILD PAIN 1-3; Start 06/15/21 at 06:00; Stop 06/16/21 at 05:59; Status DC Fentanyl Citrate (Fentanyl 2ml Vial) 50 mcg PRN Q5MIN PRN IVP MODERATE PAIN 4-6 Last administered on 06/15/21at 13:25; Start 06/15/21 at 06:00; Stop 06/16/21 at 05:59; Status DC Morphine Sulfate (Morphine Sulfate) 1 mg PRN Q10MIN PRN IVP SEVERE PAIN 7-10; Start 06/15/21 at 06:00; Stop 06/16/21 at 05:59; Status DC Ringer's Solution 1,000 ml @ 30 mls/hr Q24H IV ; Start 06/15/21 at 06:00; Stop 06/15/21 at 17:59; Status DC Hydromorphone HCl (Dilaudid) 0.5 mg PRN Q10MIN PRN IVP SEVERE PAIN 7-10, 2nd CHOICE; Start 06/15/21 at 06:00; Stop 06/16/21 at 05:59; Status DC Prochlorperazine Edisylate (Compazine) 5 mg PACU PRN PRN IVP NAUSEA, MRX1; Start 06/15/21 at 06:00; Stop 06/16/21 at 05:59; Status DC Sodium Chloride 1,000 ml @ 30 mls/hr Q24H IV Last administered on 06/15/21at 1 0:00; Start 06/15/21 at 10:00; Stop 06/16/21 at 16:10; Status DC Oxycodone/ Acetaminophen (Percocet 5/325) 1 tab PRN Q4HRS PRN PO PAIN Last administered on 06/17/21at 11:56; Start 06/15/21 at 11:45 Hydromorphone HCl (Dilaudid) 0.2 mg PRN Q4HRS PRN IVP PAIN Last administered on 06/18/21at 12:31; Start 06/15/21 at 11:45 Oxycodone/ Acetaminophen (Percocet 5/325) 2 tab PRN Q4HRS PRN PO BREAKTHROUGH PAIN Last administered on 06/17/21at 21:22; Start 06/15/21 at 12:00 Vancomycin HCl (Vancomycin Random Level) 1 each 1X ONCE MC Last administered on 06/18/21at 05:00; Start 06/18/21 at 05:00; Stop 06/18/21 at 05:01; Status DC Sodium Chloride 1,000 ml @ 1,000 mls/hr Q1H PRN IV hypotension; Start 06/16/21 at 16:00; Stop 06/16/21 at 21:59; Status DC Sodium Chloride 1,000 ml @ 400 mls/hr Q2H30M PRN IV PATENCY; Start 06/16/21 at 16:00; Stop 06/17/21 at 03:59; Status DC Info (PHARMACY MONITORING -- do not chart) 1 each PRN DAILY PRN MC SEE COMMENTS; Start 06/16/21 at 16:00; Status Cancel Sodium Chloride 1,000 ml @ 1,000 mls/hr Q1H PRN IV hypotension; Start 06/16/21 at 18:30; Stop 06/17/21 at 00:29; Status DC Albumin Human 200 ml @ 200 mls/hr 1X PRN PRN IV Hypotension; Start 06/16/21 at 18:30; Stop 06/17/21 at 00:29; Status DC Sodium Chloride (Normal Saline Flush) 10 ml 1X PRN PRN IV AP catheter pack; Start 06/16/21 at 18:30; Stop 06/17/21 at 18:29; Status DC Sodium Chloride (Normal Saline Flush) 10 ml 1X PRN PRN IV OPERATIONAL RISK MANAGER catheter pack; Start 06/16/21 at 18:30; Stop 06/17/21 at 18:29; Status DC Sodium Chloride 1,000 ml @ 400 mls/hr Q2H30M PRN IV PATENCY; Start 06/16/21 at 18:30; Stop 06/17/21 at 06:29; Status DC Info (PHARMACY MONITORING -- do not chart) 1 each PRN DAILY PRN MC SEE COMMENTS; Start 06/16/21 at 18:30; Status UNV Info (PHARMACY MONITORING -- do not chart) 1 each PRN DAILY PRN MC SEE COMMENTS; Start 06/16/21 at 18:30 Midodrine (Proamatine) 2.5 mg [id number] PO Last administered on 06/20/21at 11:50; Start 06/17/21 at 18:00 Sodium Chloride 1,000 ml @ 1,000 mls/hr Q1H PRN IV hypotension; Start 06/18/21 at 08:00; Stop 06/18/21 at 13:59; Status DC Sodium Chloride 1,000 ml @ 400 mls/hr Q2H30M PRN IV PATENCY; Start 06/18/21 at 08:00; Stop 06/18/21 at 19:59; Status DC Info (PHARMACY MONITORING -- do not chart) 1 each PRN DAILY PRN MC SEE COMMENTS; Start 06/18/21 at 08:00; Status Cancel Propofol (Diprivan) 200 mg STK-MED ONCE IV ; Start 06/15/21 at 10:53; Stop 06/18/21 at 12:36; Status DC Lidocaine HCl (Xylocaine-Mpf 1% 5ml Vial) 5 ml STK-MED ONCE .ROUTE ; Start 06/15/21 at 10:53; Stop 06/18/21 at 12:36; Status DC Fentanyl Citrate (Fentanyl 2ml Vial) 100 mcg STK-MED ONCE .ROUTE ; Start 06/15/21 at 10:53; Stop 06/18/21 at 12:36; Status DC Ephedrine Sulfate (Akovaz) 50 mg STK-MED ONCE .ROUTE ; Start 06/15/21 at 12:18; Stop 06/18/21 at 12:36; Status DC Phenylephrine HCl (PHENYLEPHRINE in 0.9% NACL PF) 1 mg STK-MED ONCE IV ; Start 06/15/21 at 12:18; Stop 06/18/21 at 12:36; Status DC Glycopyrrolate (Robinul) 1 mg STK-MED ONCE .ROUTE ; Start 06/15/21 at 12:38; Stop 06/18/21 at 12:36; Status DC Fentanyl Citrate (Fentanyl 2ml Vial) 100 mcg STK-MED ONCE .ROUTE ; Start 06/15/21 at 13:22; Stop 06/18/21 at 12:36; Status DC Vancomycin HCl (Vancomycin Random Level) 1 each 1X ONCE MC ; Start 06/21/21 at 06:00; Stop 06/19/21 at 12:13; Status DC Active Scripts Active Metoprolol Succinate 50 Mg Tab.er.24h 50 Mg PO DAILY 30 Days Levetiracetam 500 Mg Tablet 500 Mg PO BID 30 Days Reported Trazodone Hcl 50 Mg Tablet 1 Tab PO QHS Xultophy 100 Unit-3.6 mg/ml (Insulin Degludec/Liraglutide) 3 Ml Insuln.pen 24 Ml SQ HS Vitamin D (Cholecalciferol (Vitamin D3)) 1,000 Unit Capsule 1 Cap PO DAILY Atorvastatin Calcium 10 Mg Tablet 10 Mg PO DAILY Sildenafil (Sildenafil Citrate) 20 Mg Tablet 20 Mg PO TID Zetia (Ezetimibe) 10 Mg Tablet 10 Mg PO DAILY Omeprazole 40 Mg Capsule. 40 Mg PO DAILY Topiramate 100 Mg Tablet 100 Mg PO BID Promethazine Hcl 25 Mg Tablet 25 Mg PO Q6H PRN B-12 (Cyanocobalamin (Vitamin B-12)) 1,000 Mcg Tablet 1,000 Mcg PO DAILY Vascepa (Icosapent Ethyl) 1 Gm Capsule 2 Cap PO BID Aspirin Ec (Aspirin) 81 Mg Tablet. 81 Mg PO DAILY Duloxetine Hcl 60 Mg Capsule. 60 Mg PO HS Lyrica (Pregabalin) 225 Mg Capsule 225 Mg PO BID Losartan-Hctz 100-25 Mg Tab (Losartan/Hydrochlorothiazide) 1 Each Tablet 25 Mg PO DAILY Mirtazapine 45 Mg Tablet 45 Mg PO HS Amlodipine Besylate 5 Mg Tablet 5 Mg PO DAILY Vitals/I & O Vital Sign - Last 24 Hours 06/19/21 06/19/21 06/19/21 06/19/21 17:56 19:00 20:00 23:00 Temp 97.6 97.8 97.6 97.8 Pulse 58 72 72 Resp 16 18 B/P (MAP) 93/57 104/60 (75) 120/72 (88) Pulse Ox 94 95 O2 Delivery Room Air Room Air Room Air 06/20/21 06/20/21 06/20/21 06/20/21 03:00 06:12 07:00 08:00 Temp 98.0 98.2 98.0 98.2 Pulse 70 77 68 Resp 16 20 B/P (MAP) 106/63 (77) 137/71 120/69 (86) Pulse Ox 94 94 O2 Delivery Room Air Room Air Room Air 06/20/21 06/20/21 06/20/21 08:48 11:00 11:50 Temp 97.8 97.8 Pulse 68 58 58 Resp 20 B/P (MAP) 120/69 99/53 (68) 99/53 Pulse Ox 96 O2 Delivery Room Air Intake and Output 06/19/21 06/19/21 06/20/21 15:00 23:00 07:00 Intake Total 120 ml Balance 120 ml Justifications for Admission Other Justification ADELAIDA DELEON MD Jun 20, 2021 15:14
[2021-06-20 19:00] VITALS: BP 128/96
[2021-06-20] MEDS: PREGABALIN 75 MG CAPSULE PO SCH (21:11)
[2021-06-20] MEDS: traZODone 50 MG TABLET. PO SCH (21:13)
[2021-06-20] MEDS: DULoxetine HCL 30 MG CAPSULE.DR PO SCH (21:14)
[2021-06-20] MEDS: MIRTAZAPINE 15 MG TABLET PO SCH (21:14)
[2021-06-20 23:32] VITALS: BP 120/79
[2021-06-21 03:27] VITALS: BP 132/85
[2021-06-21] MEDS ORDERED: VANCOMYCIN RANDOM LEVEL. MC ONE (06:00)
[2021-06-21] MEDS: PANTOPRAZOLE 40 MG TABLET.DR. PO SCH (06:38)
[2021-06-21 07:00] VITALS: BP 87/53
[2021-06-21] MEDS ORDERED: ALBUMIN HUMAN 25% 200 ML IV PRN (08:00)
[2021-06-21] MEDS ORDERED: DIALYSIS PATIENT. MC PRN ×2 (08:00)
[2021-06-21] MEDS ORDERED: 0.9 % SODIUM CHLORIDE 10 ML DISP.SYRIN. IV PRN ×2 (08:00)
[2021-06-21] MEDS ORDERED: IV NORMAL SALINE 1000ML BAG 1,000 ML IV PRN ×2 (08:00)
[2021-06-21] MEDS: MIDODRINE 2.5 MG TABLET PO SCH ×3 (08:49→17:07)
[2021-06-21] MEDS: INSULIN LISPRO 300 UNITS/3 ML VIAL. SQ SCH ×3 (08:56→17:35)
[2021-06-21] MEDS: METOPROLOL SUCC 24HR ER 50 MG TAB.ER.24H. PO SCH (09:00)
[2021-06-21] MEDS: TOPIRAMATE 100 MG TABLET. PO SCH ×2 (09:00→21:43)
--- NOTE | 2021-06-21 09:40 | PDOC ---
PROGRESS NOTES Date of Service: DATE: 06/21/21 TIME: 09:38 Subjective Subjective no new problems ,low BP today Objective Objective Vital Signs Date Time Temp Pulse Resp B/P (MAP) Pulse Ox O2 Delivery O2 Flow Rate FiO2 06/21/21 08:49 56 87/53 06/21/21 07:00 98.0 18 92 Room Air 98.0 Intake and Output 06/21/21 07:00 # Voids 1 Physical Exam Abdomen: Normal bowel sounds Heart: Regular rate Extremities: No cyanosis, Other (Left TMA) General: mild distress HEENT: Atraumatic, Mucous membr. moist/pink Lungs: Other (Mildly decreased breath sounds) MUSCULOSKELETAL: Osteoarthritic changes both hands Psych/Mental Status: Mood NL COMMENT Lt BKA Diagnosis Problem List Problems Medical Problems: (1) Altered mental status Status: Acute (2) COVID-19 Status: Acute (3) Draining postoperative wound Status: Acute (4) ESRD (end stage renal disease) on dialysis Status: Acute (5) Severe anemia Status: Acute Assessment Assessment Problems Medical Problems: (1) Altered mental status Status: Acute (2) COVID-19 Status: Acute (3) Draining postoperative wound Status: Acute (4) ESRD (end stage renal disease) on dialysis Status: Acute (5) Severe anemia Status: Acute A/P: 1. Chronic renal failure, on hemodialysis. 2. Diabetes. 3. Peripheral arterial disease. 4. Nonhealing left foot wound. 5, Covid infection PLAN:d/c to [facility] today. d/javan IV antibiotics seen in dialysis, no new problems. spoke with director of casework services,pt september to different SNU monday spoke with vascular , can stop antibiotics POD#6 Left BKA, doing well. low bp on midodrine Plan Plan of Care Problems Medical Problems: (1) Altered mental status Status: Acute (2) COVID-19 Status: Acute (3) Draining postoperative wound Status: Acute (4) ESRD (end stage renal disease) on dialysis Status: Acute (5) Severe anemia Status: Acute Comment Review of Relevant I have reviewed the following items yifan (where applicable) has been applied. Labs Laboratory Tests Test 06/20/21 11:26 06/20/21 17:00 06/20/21 19:52 06/21/21 07:36 Glucose (Fingerstick) 123 mg/dL (70-99) 192 mg/dL (70-99) 217 mg/dL (70-99) 169 mg/dL (70-99) Microbiology 05/28/21 Gram Stain - Final, Complete 05/28/21 Aerobic and Anaerobic Culture - Final, Complete 05/28/21 Antimicrobic Susceptibility - Final, Complete 05/26/21 Blood Culture - Final, Complete NO GROWTH AFTER 5 DAYS Medications Current Medications Albumin Human 200 ml @ 200 mls/hr 1X PRN PRN IV Hypotension; Start 06/21/21 at 08:00; Stop 06/21/21 at 13:59 Info (PHARMACY MONITORING -- do not chart) 1 each PRN DAILY PRN MC SEE COMMENTS; Start 06/21/21 at 08:00 Info (PHARMACY MONITORING -- do not chart) 1 each PRN DAILY PRN MC SEE COMMENTS; Start 06/21/21 at 08:00; Status UNV Sodium Chloride 1,000 ml @ 400 mls/hr Q2H30M PRN IV PATENCY; Start 06/21/21 at 08:00; Stop 06/21/21 at 19:59 Sodium Chloride 1,000 ml @ 1,000 mls/hr Q1H PRN IV hypotension; Start 06/21/21 at 08:00; Stop 06/21/21 at 13:59 Sodium Chloride (Normal Saline Flush) 10 ml 1X PRN PRN IV AP catheter pack; Start 06/21/21 at 08:00; Stop 06/22/21 at 07:59 Sodium Chloride (Normal Saline Flush) 10 ml 1X PRN PRN IV [employer] catheter pack; Start 06/21/21 at 08:00; Stop 06/22/21 at 07:59 Vancomycin HCl (Vancomycin Random Level) 1 each 1X ONCE MC ; Start 06/21/21 at 06:00; Stop 06/19/21 at 12:13; Status DC Vitals/I & O Vital Sign - Last 24 Hours 06/20/21 06/20/21 06/20/21 06/20/21 11:00 11:50 15:00 17:23 Temp 97.8 97.5 97.8 97.5 Pulse 58 58 75 75 Resp 20 20 B/P (MAP) 99/53 (68) 99/53 120/77 (91) 120/77 Pulse Ox 96 97 O2 Delivery Room Air Room Air 2/6/06/20/21 06/20/21 06/21/21 19:00 20:00 23:32 03:27 Temp 98.0 97.7 98.3 98.0 97.7 98.3 Pulse 64 76 76 Resp 18 16 16 B/P (MAP) 128/96 (107) 120/79 (93) 132/85 (101) Pulse Ox 94 93 98 O2 Delivery Room Air Room Air Room Air Room Air 06/21/21 06/21/21 07:00 08:49 Temp 98.0 98.0 Pulse 56 56 Resp 18 B/P (MAP) 87/53 (64) 87/53 Pulse Ox 92 O2 Delivery Room Air Justifications for Admission Other Justification STEVO KERNS MD Jun 21, 2021 09:40
[2021-06-21 10:10] LABS: CALCIUM 8.6 mg/dL (8.5-10.1); CREATININE 7.4 mg/dL (0.7-1.3); GFR 7.7; POTASSIUM 4.1 mmol/L (3.5-5.1)
--- NOTE | 2021-06-21 11:10 | PDOC ---
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 Oriented to person and place, off on the date PERRL. EOMI. CN: no focal findings. Muscle tone: normal. Muscle strength: 3/5 DTR: 0+ Plantar reflex: Flexor Gait: not examined in bed. Sensory exam: Stocking loss. No cerebellar signs elicited. Review of Relevant I have reviewed the following items yifan (where applicable) has been applied. Labs Laboratory Tests Test 06/19/21 12:01 06/19/21 17:07 06/19/21 20:27 06/20/21 08:00 Glucose (Fingerstick) 150 mg/dL (70-99) 127 mg/dL (70-99) 174 mg/dL (70-99) 168 mg/dL (70-99) Test 06/20/21 11:26 06/20/21 17:00 06/20/21 19:52 06/21/21 07:36 Glucose (Fingerstick) 123 mg/dL (70-99) 192 mg/dL (70-99) 217 mg/dL (70-99) 169 mg/dL (70-99) Test 06/21/21 09:40 Sodium Level 144 mmol/L (136-145) Potassium Level 4.1 mmol/L (3.5-5.1) Chloride Level 104 mmol/L (98-107) Carbon Dioxide Level 26 mmol/L (21-32) Anion Gap 14 (6-14) Blood Urea Nitrogen 39 mg/dL (8-26) Creatinine 7.4 mg/dL (0.7-1.3) Estimated GFR (Cockcroft-Gault) 7.7 Glucose Level 184 mg/dL (70-99) Calcium Level 8.6 mg/dL (8.5-10.1) Laboratory Tests Test 06/20/21 11:26 06/20/21 17:00 06/20/21 19:52 06/21/21 07:36 Glucose (Fingerstick) 123 mg/dL (70-99) 192 mg/dL (70-99) 217 mg/dL (70-99) 169 mg/dL (70-99) Test 06/21/21 09:40 Sodium Level 144 mmol/L (136-145) Potassium Level 4.1 mmol/L (3.5-5.1) Chloride Level 104 mmol/L (98-107) Carbon Dioxide Level 26 mmol/L (21-32) Anion Gap 14 (6-14) Blood Urea Nitrogen 39 mg/dL (8-26) Creatinine 7.4 mg/dL (0.7-1.3) Estimated GFR (Cockcroft-Gault) 7.7 Glucose Level 184 mg/dL (70-99) Calcium Level 8.6 mg/dL (8.5-10.1) Microbiology 05/28/21 Gram Stain - Final, Complete 05/28/21 Aerobic and Anaerobic Culture - Final, Complete 05/28/21 Antimicrobic Susceptibility - Final, Complete 05/26/21 Blood Culture - Final, Complete NO GROWTH AFTER 5 DAYS Medications Current Medications Sodium Chloride 1,000 ml @ 1,000 mls/hr 1X ONCE IV ; Start 05/26/21 at 01:30; Stop 05/26/21 at 02:29; Status DC Piperacillin Sod/ Tazobactam Sod (Zosyn Per Pharmacy) 1 each PRN DAILY PRN MC SEE COMMENTS; Start 05/26/21 at 01:30; Status Cancel Piperacillin Sod/ Tazobactam Sod 3.375 gm/Sodium Chloride 50 ml @ 100 mls/hr 1X ONCE IV Last administered on 05/26/21at 03:25; Start 05/26/21 at 02:15; Stop 05/26/21 at 02:44; Status DC Vancomycin HCl (Vanco Per Pharmacy) 1 each PRN DAILY PRN MC SEE COMMENTS Last administered on 06/18/21at 13:56; Start 05/26/21 at 03:15; Stop 06/19/21 at 12:13; Status DC Sodium Chloride 500 ml @ 500 mls/hr 1X ONCE IV Last administered on 05/26/21at 03:25; Start 05/26/21 at 03:30; Stop 05/26/21 at 04:29; Status DC Ondansetron HCl (Zofran) 4 mg PRN Q8HRS PRN IVP NAUSEA/VOMITING; Start 05/26/21 at 03:30; Stop 05/27/21 at 03:29; Status DC Acetaminophen (Tylenol) 650 mg PRN Q4HRS PRN PO FEVER > 100.3'F; Start 05/26/21 at 03:30; Stop 05/27/21 at 03:29; Status DC Insulin Human Lispro (HumaLOG) 0-5 UNITS TIDWMEALS SQ Last administered on 05/26/21at 09:09; Start 05/26/21 at 08:00; Stop 05/26/21 at 12:46; Status DC Dextrose (Dextrose 50%-Water Syringe) 12.5 gm PRN Q15MIN PRN IV SEE COMMENTS; Start 05/26/21 at 03:30; Status Cancel Vancomycin HCl 1.75 gm/Sodium Chloride 500 ml @ 250 mls/hr 1X ONCE IV Last administered on 05/26/21at 05:47; Start 05/26/21 at 06:00; Stop 05/26/21 at 07:59; Status DC Piperacillin Sod/ Tazobactam Sod 2.25 gm/Sodium Chloride 50 ml @ 100 mls/hr Q8HRS IV Last administered on 06/02/21at 05:35; Start 05/26/21 at 08:00; Stop 06/02/21 at 08:27; Status DC Sodium Hypochlorite (Dakin'S 1/4 Strength) 1 lópez BID TP Last administered on 06/09/21 20:23; Start 05/26/21 at 11:00; Stop 06/11/21 at 10:19; Status DC Aspirin (Ecotrin) 81 mg DAILY PO Last administered on 06/20/21 08:47; Start 05/26/21 at 14:00 Atorvastatin Calcium (Lipitor) 10 mg DAILY PO Last administered on 06/20/21 08:47; Start 05/26/21 at 14:00 Cyanocobalamin (Vitamin B-12) 1,000 mcg DAILY PO Last administered on 06/20/21 08:47; Start 05/27/21 at 09:00 EZETIMIBE (Zetia) 10 mg DAILY PO Last administered on 06/20/21 08:47; Start 05/26/21 at 14:00 Topiramate (Topamax) 100 mg BID PO Last administered on 06/20/21 21:14; Start 05/26/21 at 14:00 Trazodone HCl (Desyrel) 50 mg QHS PO Last administered on 06/20/21 21:13; Start 05/26/21 at 21:00 Vitamin D (Vitamin D3) 1,000 unit DAILY PO Last administered on 06/20/21 08:48; Start 05/26/21 at 14:00 Duloxetine HCl (Cymbalta) 60 mg HS PO Last administered on 06/20/21 21:14; Start 05/26/21 at 21:00 Non-Formulary Medication (Icosapent Ethyl (Vascepa)) 2 cap BID PO ; Start 05/26/21 at 21:00; Status UNV Mirtazapine (Remeron) 45 mg QHS PO Last administered on 06/20/21 21:14; Start 05/26/21 at 21:00 Pantoprazole Sodium (Protonix) 40 mg DAILYAC PO Last administered on 06/21/21 06:38; Start 05/26/21 at 14:00 Pregabalin (Lyrica) 225 mg BID PO Last administered on 06/20/21 21:11; Start 05/26/21 at 14:00 Promethazine HCl (Phenergan) 25 mg PRN Q6HRS PRN PO NAUSEA/VOMITING Last administered on 2/3/22at 21:21; Start 05/26/21 at 13:00 Levetiracetam 100 ml @ 400 mls/hr Q12HR IV ; Start 05/26/21 at 21:00; Status UNV Insulin Human Lispro (HumaLOG) 0-5 UNITS TIDWMEALS SQ Last administered on 06/21/21at 08:56; Start 05/26/21 at 17:00 Dextrose (Dextrose 50%-Water Syringe) 12.5 gm PRN Q15MIN PRN IV SEE COMMENTS; Start 05/26/21 at 12:45 Levetiracetam (Keppra) 500 mg BID PO ; Start 05/26/21 at 14:00; Status Cancel Lactobacillus Rhamnosus (Culturelle) 1 cap BID PO Last administered on 06/20/21at 21:10; Start 05/26/21 at 21:00 Levetiracetam 100 ml @ 400 mls/hr Q12HR IV Last administered on 05/29/21at 21:38; Start 05/26/21 at 14:00; Stop 05/29/21 at 23:00; Status DC Epoetin Catalino-epbx (RETACRIT for ESRD PTS) 10,000 unit MoWeFr@2100 SQ Last administered on 06/18/21at 20:44; Start 05/26/21 at 21:00 Vancomycin HCl (Vancomycin Random Level) 1 each 1X ONCE MC Last administered on 05/27/21at 05:00; Start 05/27/21 at 05:00; Stop 05/27/21 at 05:01; Status DC Info (PHARMACY MONITORING -- do not chart) 1 each PRN DAILY PRN MC SEE COMMENTS; Start 05/26/21 at 18:30; Status Cancel Vancomycin HCl (Vancomycin Random Level) 1 each 1X ONCE MC Last administered on 05/29/21at 06:00; Start 05/29/21 at 06:00; Stop 05/29/21 at 06:01; Status DC Sodium Chloride 1,000 ml @ 1,000 mls/hr Q1H PRN IV hypotension; Start 05/28/21 at 11:45; Stop 05/28/21 at 17:44; Status DC Sodium Chloride (Normal Saline Flush) 10 ml 1X PRN PRN IV AP catheter pack; Start 05/28/21 at 11:45; Stop 05/29/21 at 11:44; Status DC Sodium Chloride (Normal Saline Flush) 10 ml 1X PRN PRN IV ENTOMOLOGY PROFESSOR catheter pack; Start 05/28/21 at 11:45; Stop 05/29/21 at 11:44; Status DC Sodium Chloride 1,000 ml @ 400 mls/hr Q2H30M PRN IV PATENCY; Start 05/28/21 at 11:45; Stop 05/28/21 at 23:44; Status DC Info (PHARMACY MONITORING -- do not chart) 1 each PRN DAILY PRN MC SEE COMMENTS ; Start 05/28/21 at 11:45; Status UNV Info (PHARMACY MONITORING -- do not chart) 1 each PRN DAILY PRN MC SEE COMMENTS; Start 05/28/21 at 11:45; Status UNV Metoprolol Succinate (Toprol Xl) 50 mg DAILY PO Last administered on 06/20/21at 08:48; Start 05/28/21 at 14:00 Vancomycin HCl (Vancomycin Random Level) 1 each 1X ONCE MC Last administered on 06/02/21at 06:00; Start 06/02/21 at 06:00; Stop 06/02/21 at 06:01; Status DC Levetiracetam (Keppra) 500 mg BID PO Last administered on 06/20/21at 21:13; Start 05/30/21 at 09:00 Perflutren Protein Type A Microsphe (Optison) 0.66 mg 1X ONCE IV ; Start 05/31/21 at 08:15; Stop 05/31/21 at 08:16; Status DC Sodium Chloride 1,000 ml @ 1,000 mls/hr Q1H PRN IV hypotension; Start 05/31/21 at 10:15; Stop 05/31/21 at 16:14; Status DC Albumin Human 200 ml @ 200 mls/hr 1X PRN PRN IV Hypotension; Start 05/31/21 at 10:15; Stop 05/31/21 at 16:14; Status DC Sodium Chloride 1,000 ml @ 400 mls/hr Q2H30M PRN IV PATENCY; Start 05/31/21 at 10:15; Stop 05/31/21 at 22:14; Status DC Info (PHARMACY MONITORING -- do not chart) 1 each PRN DAILY PRN MC SEE COMMENTS; Start 05/31/21 at 10:15; Status Cancel Meropenem 500 mg/ Sodium Chloride 50 ml @ 100 mls/hr DAILY IV Last administered on 06/19/21at 09:52; Start 06/02/21 at 09:00; Stop 06/19/21 at 22:00; Status DC Fluconazole (Diflucan) 200 mg DAILY PO Last administered on 06/20/21at 09:23; Start 06/02/21 at 09:00 Vancomycin HCl 500 mg/Sodium Chloride 100 ml @ 100 mls/hr QMWF IV Last administered on 06/11/21at 14:47; Start 06/04/21 at 16:00; Stop 06/14/21 at 12:18; Status DC Sodium Chloride 1,000 ml @ 1,000 mls/hr Q1H PRN IV hypotension; Start 06/02/21 at 14:15; Stop 06/02/21 at 20:14; Status DC Albumin Human 100 ml @ 200 mls/hr 1X PRN PRN IV Hypotension Last administered on 06/02/21at 15:00; Start 06/02/21 at 14:15; Stop 06/02/21 at 20:14; Status DC Sodium Chloride 1,000 ml @ 400 mls/hr Q2H30M PRN IV PATENCY; Start 06/02/21 at 14:15; Stop 06/03/21 at 02:14; Status DC Info (PHARMACY MONITORING -- do not chart) 1 each PRN DAILY PRN MC SEE COMMENTS; Start 06/02/21 at 14:15; Status Cancel Info (PHARMACY MONITORING -- do not chart) 1 each PRN DAILY PRN MC SEE CO MMENTS; Start 06/02/21 at 14:15; Status Cancel Sodium Chloride 1,000 ml @ 1,000 mls/hr Q1H PRN IV hypotension; Start 06/04/21 at 08:15; Stop 06/04/21 at 14:14; Status DC Albumin Human 200 ml @ 200 mls/hr 1X PRN PRN IV Hypotension; Start 06/04/21 at 08:15; Stop 06/04/21 at 14:14; Status DC Sodium Chloride (Normal Saline Flush) 10 ml 1X PRN PRN IV AP catheter pack; Start 06/04/21 at 08:15; Stop 06/05/21 at 08:14; Status DC Sodium Chloride (Normal Saline Flush) 10 ml 1X PRN PRN IV ENTOMOLOGY PROFESSOR catheter pack; S tart 06/04/21 at 08:15; Stop 06/05/21 at 08:14; Status DC Sodium Chloride 1,000 ml @ 400 mls/hr Q2H30M PRN IV PATENCY; Start 06/04/21 at 08:15; Stop 06/04/21 at 20:14; Status DC Info (PHARMACY MONITORING -- do not chart) 1 each PRN DAILY PRN MC SEE COMM ENTS; Start 06/04/21 at 08:15; Status UNV Info (PHARMACY MONITORING -- do not chart) 1 each PRN DAILY PRN MC SEE COMMENTS; Start 06/04/21 at 08:15; Stop 06/09/21 at 07:47; Status DC Sodium Chloride 1,000 ml @ 1,000 mls/hr Q1H PRN IV hypotension; Start 06/07/21 at 09:15; Stop 06/07/21 at 15:14; Status DC Albumin Human 200 ml @ 200 mls/hr 1X PRN PRN IV Hypotension; Start 06/07/21 at 09:15; Stop 06/07/21 at 15:14; Status DC Sodium Chloride 1,000 ml @ 400 mls/hr Q2H30M PRN IV PATENCY; Start 06/07/21 at 09:15; Stop 06/07/21 at 21:14; Status DC Info (PHARMACY MONITORING -- do not chart) 1 each PRN DAILY PRN MC SEE COMMENTS; Start 06/07/21 at 09:15; Status UNV Heparin Sodium/ Sodium Chloride (HEPARIN for ARTERIAL LINE FLUSH) 1,000 unit 1X ONCE IART Last administered on 06/07/21at 15:10; Start 06/07/21 at 14:45; Stop 06/07/21 at 14:46; Status DC Heparin Sodium/ Sodium Chloride (HEPARIN for ARTERIAL LINE FLUSH) 1,000 unit 1X ONCE IART Last administered on 06/07/21at 15:10; Start 06/07/21 at 14:45; Stop 06/07/21 at 14:46; Status DC Midazolam HCl (Versed) 2 mg 1X ONCE IV Last administered on 06/07/21at 15:18; Start 06/07/21 at 14:45; Stop 06/07/21 at 14:46; Status DC Fentanyl Citrate (Fentanyl 2ml Vial) 100 mcg 1X ONCE IV Last administered on 06/07/21at 15:28; Start 06/07/21 at 14:45; Stop 06/07/21 at 14:46; Status DC Iodixanol (Visipaque 320) 100 ml 1X ONCE IART Last administered on 06/07/21at 15:10; Start 06/07/21 at 14:45; Stop 06/07/21 at 14:46; Status DC Lidocaine HCl (Lidocaine 1% 20ml Vial) 20 ml 1X ONCE INJ Last administered on 06/07/21at 15:11; Start 06/07/21 at 14:45; Stop 06/07/21 at 14:46; Status DC Iodixanol (Visipaque 320) 100 ml STK-MED ONCE .ROUTE ; Start 06/07/21 at 11:49; Stop 06/08/21 at 13:36; Status DC Heparin Sodium/ Sodium Chloride 500 ml @ As Directed STK-MED ONCE .ROUTE ; Start 06/07/21 at 11:49; Stop 06/08/21 at 13:36; Status DC Lidocaine HCl (Lidocaine 1% 20ml Vial) 20 ml STK-MED ONCE .ROUTE ; Start 06/07/21 at 12:03; Stop 06/08/21 at 13:37; Status DC Heparin Sodium/ Sodium Chloride 1,000 ml @ As Directed STK-MED ONCE .ROUTE ; Start 06/07/21 at 12:03; Stop 06/08/21 at 13:37; Status DC Midazolam HCl (Versed) 2 mg STK-MED ONCE .ROUTE ; Start 06/07/21 at 14:14; Stop 06/08/21 at 13:38; Status DC Fentanyl Citrate (Fentanyl 2ml Vial) 100 mcg STK-MED ONCE .ROUTE ; Start 06/07/21 at 14:15; Stop 06/08/21 at 13:38; Status DC Heparin Sodium (Porcine) (Heparin Sodium) 10,000 unit STK-MED ONCE .ROUTE ; Start 06/07/21 at 14:15; Stop 06/08/21 at 13:38; Status DC Cefazolin Sodium 1 gm/Sodium Chloride 500 ml @ 500 mls/hr 1X ONCE IRR ; Start 06/09/21 at 06:00; Stop 06/09/21 at 07:00; Status DC Fentanyl Citrate (Fentanyl 2ml Vial) 25 mcg PRN Q5MIN PRN IVP MILD PAIN 1-3; Start 06/09/21 at 06:00; Stop 06/09/21 at 17:24; Status DC Fentanyl Citrate (Fentanyl 2ml Vial) 50 mcg PRN Q5MIN PRN IVP MODERATE PAIN 4- 6; Start 06/09/21 at 06:00; Stop 06/09/21 at 17:24; Status DC Morphine Sulfate (Morphine Sulfate) 1 mg PRN Q10MIN PRN IVP SEVERE PAIN 7-10; Start 06/09/21 at 06:00; Stop 06/09/21 at 17:24; Status DC Ringer's Solution 1,000 ml @ 30 mls/hr Q24H IV ; Start 06/09/21 at 06:00; Stop 06/09/21 at 17:24; Status DC Hydromorphone HCl (Dilaudid) 0.5 mg PRN Q10MIN PRN IVP SEVERE PAIN 7-10, 2nd CHOICE; Start 06/09/21 at 06:00; Stop 06/09/21 at 17:24; Status DC Prochlorperazine Edisylate (Compazine) 5 mg PACU PRN PRN IVP NAUSEA, MRX1; Start 06/09/21 at 06:00; Stop 06/09/21 at 17:25; Status DC Sodium Chloride 1,000 ml @ 1,000 mls/hr Q1H PRN IV hypotension; Start 06/09/21 at 07:45; Stop 06/09/21 at 13:44; Status DC Sodium Chloride 1,000 ml @ 400 mls/hr Q2H30M PRN IV PATENCY; Start 06/09/21 at 07:45; Stop 06/09/21 at 19:44; Status DC Info (PHARMACY MONITORING -- do not chart) 1 each PRN DAILY PRN MC SEE COMMENTS; Start 06/09/21 at 07:45; Stop 06/09/21 at 07:48; Status DC Info (PHARMACY MONITORING -- do not chart) 1 each PRN DAILY PRN MC SEE COMMENTS; Start 06/09/21 at 07:45; Status Cancel Sodium Chloride 1,000 ml @ 1,000 mls/hr Q1H PRN IV hypotension; Start 06/11/21 at 08:45; Stop 06/11/21 at 14:44; Status DC Sodium Chloride (Normal Saline Flush) 10 ml 1X PRN PRN IV AP catheter pack; Start 06/11/21 at 08:45; Stop 06/12/21 at 08:44; Status DC Sodium Chloride (Normal Saline Flush) 10 ml 1X PRN PRN IV ENTOMOLOGY PROFESSOR catheter pack; Start 06/11/21 at 08:45; Stop 06/12/21 at 08:44; Status DC Info (PHARMACY MONITORING -- do not chart) 1 each PRN DAILY PRN MC SEE COMMENTS; Start 06/11/21 at 08:45; Status UNV Info (PHARMACY MONITORING -- do not chart) 1 each PRN DAILY PRN MC SEE COMMENTS; Start 06/11/21 at 08:45; Status Cancel Sodium Hypochlorite (Dakin'S 1/4 Strength) 1 lópez QODAY TP Last administered on 06/18/21at 14:02; Start 06/12/21 at 08:00 Vancomycin HCl (Vancomycin Random Level) 1 each 1X ONCE MC ; Start 06/14/21 at 06:00; Stop 06/14/21 at 06:01; Status DC Sodium Chloride 1,000 ml @ 1,000 mls/hr Q1H PRN IV hypotension; Start 06/14/21 at 08:00; Stop 06/14/21 at 13:59; Status DC Albumin Human 100 ml @ 200 mls/hr 1X PRN PRN IV Hypotension Last administered on 06/14/21at 10:45; Start 06/14/21 at 08:00; Stop 06/14/21 at 13:59; Status DC Sodium Chloride 1,000 ml @ 400 mls/hr Q2H30M PRN IV PATENCY; Start 06/14/21 at 08:00; Stop 06/14/21 at 19:59; Status DC Info (PHARMACY MONITORING -- do not chart) 1 each PRN DAILY PRN MC SEE COMMENTS; Start 06/14/21 at 08:00; Status UNV Info (PHARMACY MONITORING -- do not chart) 1 each PRN DAILY PRN MC SEE COMMENTS; Start 06/14/21 at 08:00; Status Cancel Cefazolin Sodium 1 gm/Sodium Chloride 500 ml @ 500 mls/hr 1X ONCE IRR Last administered on 06/15/21at 12:02; Start 2/1/22 at 06:00; Stop 06/15/21 at 07:00; Status DC Fentanyl Citrate (Fentanyl 2ml Vial) 25 mcg PRN Q5MIN PRN IVP MILD PAIN 1-3; Start 06/15/21 at 06:00; Stop 06/16/21 at 05:59; Status DC Fentanyl Citrate (Fentanyl 2ml Vial) 50 mcg PRN Q5MIN PRN IVP MODERATE PAIN 4-6 Last administered on 06/15/21at 13:25; Start 06/15/21 at 06:00; Stop 06/16/21 at 05:59; Status DC Morphine Sulfate (Morphine Sulfate) 1 mg PRN Q10MIN PRN IVP SEVERE PAIN 7-10; Start 06/15/21 at 06:00; Stop 06/16/21 at 05:59; Status DC Ringer's Solution 1,000 ml @ 30 mls/hr Q24H IV ; Start 06/15/21 at 06:00; Stop 06/15/21 at 17:59; Status DC Hydromorphone HCl (Dilaudid) 0.5 mg PRN Q10MIN PRN IVP SEVERE PAIN 7-10, 2nd CHOICE; Start 06/15/21 at 06:00; Stop 06/16/21 at 05:59; Status DC Prochlorperazine Edisylate (Compazine) 5 mg PACU PRN PRN IVP NAUSEA, MRX1; Start 06/15/21 at 06:00; Stop 06/16/21 at 05:59; Status DC Sodium Chloride 1,000 ml @ 30 mls/hr Q24H IV Last administered on 06/15/21at 10:00; Start 06/15/21 at 10:00; Stop 06/16/21 at 16:10; Status DC Oxycodone/ Acetaminophen (Percocet 5/325) 1 tab PRN Q4HRS PRN PO PAIN Last administered on 06/17/21at 11:56; Start 06/15/21 at 11:45 Hydromorphone HCl (Dilaudid) 0.2 mg PRN Q4HRS PRN IVP PAIN Last administered on 06/18/21at 12:31; Start 06/15/21 at 11:45 Oxycodone/ Acetaminophen (Percocet 5/325) 2 tab PRN Q4HRS PRN PO BREAKTHROUGH PAIN Last administered on 06/17/21at 21:22; Start 06/15/21 at 12:00 Vancomycin HCl (Vancomycin Random Level) 1 each 1X ONCE MC Last administered on 06/18/21at 05:00; Start 06/18/21 at 05:00; Stop 06/18/21 at 05:01; Status DC Sodium Chloride 1,000 ml @ 1,000 mls/hr Q1H PRN IV hypotension; Start 06/16/21 at 16:00; Stop 06/16/21 at 21:59; Status DC Sodium Chloride 1,000 ml @ 400 mls/hr Q2H30M PRN IV PATENCY; Start 06/16/21 at 16:00; Stop 06/17/21 at 03:59; Status DC Info (PHARMACY MONITORING -- do not chart) 1 each PRN DAILY PRN MC SEE COMMENTS; Start 06/16/21 at 16:00; Status Cancel Sodium Chloride 1,000 ml @ 1,000 mls/hr Q1H PRN IV hypotension; Start 06/16/21 at 18:30; Stop 06/17/21 at 00:29; Status DC Albumin Human 200 ml @ 200 mls/hr 1X PRN PRN IV Hypotension; Start 06/16/21 at 18:30; Stop 06/17/21 at 00:29; Status DC Sodium Chloride (Normal Saline Flush) 10 ml 1X PRN PRN IV AP catheter pack; Start 06/16/21 at 18:30; Stop 06/17/21 at 18:29; Status DC Sodium Chloride (Normal Saline Flush) 10 ml 1X PRN PRN IV ENTOMOLOGY PROFESSOR catheter pack; Start 06/16/21 at 18:30; Stop 06/17/21 at 18:29; Status DC Sodium Chloride 1,000 ml @ 400 mls/hr Q2H30M PRN IV PATENCY; Start 06/16/21 at 18:30; Stop 06/17/21 at 06:29; Status DC Info (PHARMACY MONITORING -- do not chart) 1 each PRN DAILY PRN MC SEE COMMENTS; Start 06/16/21 at 18:30; Status UNV Info (PHARMACY MONITORING -- do not chart) 1 each PRN DAILY PRN MC SEE COMMENTS; Start 06/16/21 at 18:30 Midodrine (Proamatine) 2.5 mg [id number] PO Last administered on 06/21/21at 08:49; Start 06/17/21 at 18:00 Sodium Chloride 1,000 ml @ 1,000 mls/hr Q1H PRN IV hypotension; Start 06/18/21 at 08:00; Stop 06/18/21 at 13:59; Status DC Sodium Chloride 1,000 ml @ 400 mls/hr Q2H30M PRN IV PATENCY; Start 06/18/21 at 08:00; Stop 06/18/21 at 19:59; Status DC Info (PHARMACY MONITORING -- do not chart) 1 each PRN DAILY PRN MC SEE COMMENTS; Start 06/18/21 at 08:00; Status Cancel Propofol (Diprivan) 200 mg STK-MED ONCE IV ; Start 06/15/21 at 10:53; Stop 06/18/21 at 12:36; Status DC Lidocaine HCl (Xylocaine-Mpf 1% 5ml Vial) 5 ml STK-MED ONCE .ROUTE ; Start 06/15/21 at 10:53; Stop 06/18/21 at 12:36; Status DC Fentanyl Citrate (Fentanyl 2ml Vial) 100 mcg STK-MED ONCE .ROUTE ; Start 06/15/21 at 10:53; Stop 06/18/21 at 12:36; Status DC Ephedrine Sulfate (Akovaz) 50 mg STK-MED ONCE .ROUTE ; Start 06/15/21 at 12:18; Stop 06/18/21 at 12:36; Status DC Phenylephrine HCl (PHENYLEPHRINE in 0.9% NACL PF) 1 mg STK-MED ONCE IV ; Start 06/15/21 at 12:18; Stop 06/18/21 at 12:36; Status DC Glycopyrrolate (Robinul) 1 mg STK-MED ONCE .ROUTE ; Start 06/15/21 at 12:38; Stop 06/18/21 at 12:36; Status DC Fentanyl Citrate (Fentanyl 2ml Vial) 100 mcg STK-MED ONCE .ROUTE ; Start 06/15/21 at 13:22; Stop 06/18/21 at 12:36; Status DC Vancomycin HCl (Vancomycin Random Level) 1 each 1X ONCE MC ; Start 06/21/21 at 06:00; Stop 06/19/21 at 12:13; Status DC Sodium Chloride 1,000 ml @ 1,000 mls/hr Q1H PRN IV hypotension; Start 06/21/21 at 08:00; Stop 06/21/21 at 13:59 Albumin Human 200 ml @ 200 mls/hr 1X PRN PRN IV Hypotension; Start 06/21/21 at 08:00; Stop 06/21/21 at 13:59 Sodium Chloride (Normal Saline Flush) 10 ml 1X PRN PRN IV AP catheter pack; Start 06/21/21 at 08:00; Stop 06/22/21 at 07:59 Sodium Chloride (Normal Saline Flush) 10 ml 1X PRN PRN IV ENTOMOLOGY PROFESSOR catheter pack; Start 06/21/21 at 08:00; Stop 06/22/21 at 07:59 Sodium Chloride 1,000 ml @ 400 mls/hr Q2H30M PRN IV PATENCY; Start 06/21/21 at 08:00; Stop 06/21/21 at 19:59 Info (PHARMACY MONITORING -- do not chart) 1 each PRN DAILY PRN MC SEE COMMENTS; Start 06/21/21 at 08:00; Status UNV Info (PHARMACY MONITORING -- do not chart) 1 each PRN DAILY PRN MC SEE COMMENTS; Start 06/21/21 at 08:00 Active Scripts Active Metoprolol Succinate 50 Mg Tab.er.24h 50 Mg PO DAILY 30 Days Levetiracetam 500 Mg Tablet 500 Mg PO BID 30 Days Reported Trazodone Hcl 50 Mg Tablet 1 Tab PO QHS Xultophy 100 Unit-3.6 mg/ml (Insulin Degludec/Liraglutide) 3 Ml Insuln.pen 24 Ml SQ HS Vitamin D (Cholecalciferol (Vitamin D3)) 1,000 Unit Capsule 1 Cap PO DAILY Atorvastatin Calcium 10 Mg Tablet 10 Mg PO DAILY Sildenafil (Sildenafil Citrate) 20 Mg Tablet 20 Mg PO TID Zetia (Ezetimibe) 10 Mg Tablet 10 Mg PO DAILY Omeprazole 40 Mg Capsule. 40 Mg PO DAILY Topiramate 100 Mg Tablet 100 Mg PO BID Promethazine Hcl 25 Mg Tablet 25 Mg PO Q6H PRN B-12 (Cyanocobalamin (Vitamin B-12)) 1,000 Mcg Tablet 1,000 Mcg PO DAILY Vascepa (Icosapent Ethyl) 1 Gm Capsule 2 Cap PO BID Aspirin Ec (Aspirin) 81 Mg Tablet. 81 Mg PO DAILY Duloxetine Hcl 60 Mg Capsule.dr 60 Mg PO HS Lyrica (Pregabalin) 225 Mg Capsule 225 Mg PO BID Losartan-Hctz 100-25 Mg Tab (Losartan/Hydrochlorothiazide) 1 Each Tablet 25 Mg PO DAILY Mirtazapine 45 Mg Tablet 45 Mg PO HS Amlodipine Besylate 5 Mg Tablet 5 Mg PO DAILY Vitals/I & O Vital Sign - Last 24 Hours 06/20/21 06/20/21 06/20/21 06/20/21 11:50 15:00 17:23 19:00 Temp 97.5 98.0 97.5 98.0 Pulse 58 75 75 64 Resp 20 18 B/P (MAP) 99/53 120/77 (91) 120/77 128/96 (107) Pulse Ox 97 94 O2 Delivery Room Air Room Air 06/20/21 06/20/21 06/21/21 06/21/21 20:00 23:32 03:27 07:00 Temp 97.7 98.3 98.0 97.7 98.3 98.0 Pulse 76 76 56 Resp 16 16 18 B/P (MAP) 120/79 (93) 132/85 (101) 87/53 (64) Pulse Ox 93 98 92 O2 Delivery Room Air Room Air Room Air Room Air 06/21/21 06/21/21 08:00 08:49 Pulse 56 B/P (MAP) 87/53 O2 Delivery Room Air Justicifation of Admission Dx: Justifications for Admission: Justification of Admission Dx: N/A PAOLA DICK MD Jun 21, 2021 11:10
--- NOTE | 2021-06-21 11:24 | PDOC ---
Infectious Disease Note Subjective: Subjective Patient without complaints seen in dialysis unit Vital Signs: Vital Signs Vital Signs Date Time Temp Pulse Resp B/P (MAP) Pulse Ox O2 Delivery O2 Flow Rate FiO2 06/21/21 08:49 56 87/53 06/21/21 08:00 Room Air 06/21/21 07:00 98.0 18 92 98.0 Physical Exam: PHYSICAL EXAM GENERAL: Alert awake oriented x3 male in no acute distress HEENT: Both pupils are round and reacting. No conjunctival lesion. No lesion in the mouth. NECK: Supple. No JVP, no lymphadenopathy. LUNGS: Clear. HEART: S1, S2, regular. ABDOMEN: Soft, nontender. No organomegaly. EXTREMITIES: There are multiple superficial wounds on to the extremities. Muscle wasting present. Left BKA site dressing in place, intact,dry not taken down NEUROLOGIC: The patient is awake,alert Medications: Inpatient Meds: Medications reviewed. Labs: Lab Laboratory Tests Test 06/20/21 11:26 06/20/21 17:00 06/20/21 19:52 06/21/21 07:36 Glucose (Fingerstick) 123 mg/dL (70-99) 192 mg/dL (70-99) 217 mg/dL (70-99) 169 mg/dL (70-99) Test 06/21/21 09:40 Sodium Level 144 mmol/L (136-145) Potassium Level 4.1 mmol/L (3.5-5.1) Chloride Level 104 mmol/L (98-107) Carbon Dioxide Level 26 mmol/L (21-32) Anion Gap 14 (6-14) Blood Urea Nitrogen 39 mg/dL (8-26) Creatinine 7.4 mg/dL (0.7-1.3) Estimated GFR (Cockcroft-Gault) 7.7 Glucose Level 184 mg/dL (70-99) Calcium Level 8.6 mg/dL (8.5-10.1) Micro Micro RUN DATE: 05/29/21 [facility] LAB *LIVE* PAGE 1 RUN TIME: 1127 Specimen Inquiry PATIENT: FER CHAUDHARY ACCT: [id number] LOC: [address] [place] [address] U: [id number] AGE/SX: 55/M ROOM: 582 RE05/26/[address]: KAHLIL WADE MD : 1965 BED: 1 DIS: STATUS: ADM IN TLOC: SPEC #: [id number] CHERIE: 05/26/21 STATUS: RES REQ #: [id number] RECD: 05/27/[address]: KAHLIL WADE MD SOURCE: FOOT ENTR: 05/27/21 [facility] DR: MACHELLE COPE MD SPDESC: NUBIA COLINDRES MD, ZHIPENG DPM ORDERED: ANAER/SANDRA/MARICEL COMMENTS: LEFT FOOT SWAB Procedure Result GRAM STAIN Final Final GRAM NEGATIVE RODS:MANY SQUAMOUS EPI CELL:NONE SEEN PMN (WBCs):RARE Unless otherwise specified, Testing Performed by: [address] [address] For Inquires, the Physician may contact the Microbiology department at [phone] ANAEROBIC-AEROBIC CULTURE Preliminary Preliminary MANY [ENTEROBACTER CLOACAE COMPLEX] on 05/28/21 at 1127 FEW [MARY ALBICANS] on 05/28/21 at 1127 ENTEROBACTER CLOACAE COMPLEX MARY ALBICANS ANTIMICROBIAL SUSCEPTIBILITY Preliminary Comment NEG JANI 56 ENTEROBACTER CLOACAE COMPLEX ANTIBIOTIC RESULT INTERPRETATION AMPICILLIN/SULBACTAM >16/8 R AMIKACIN <=16 S AMPICILLIN >16 R AMOXICILLIN/K CLAVULANATE >16/8 R AZTREONAM >16 R CEFTRIAXONE >32 R CEFTAZIDIME <=1 S CEFOTAXIME <=2 S CEFOXITIN <=8 R* CEFAZOLIN >16 R CIPROFLOXACIN <=0.25 S CEFEPIME <=2 S CEFUROXIME >16 R ERTAPENEM <=0.5 S RUN DATE: 05/29/21 [facility] *LIVE* PAGE 2 RUN TIME: 1126 Specimen Inquiry SPEC: [id number] PATIENT: FER CHAUDHARY [id number] (Continued) -------- ---- Procedure Result CONTINUED ON NEXT PAGE RUN DATE: 05/29/21 [facility] *LIVE* PAGE 3 RUN TIME: 1127 Specimen Inquiry SPEC: [id number] PATIENT: FER CHAUDHARY [id number] (Continued) Procedure Result ANTIMICROBIAL SUSCEPTIBILITY Preliminary (continued) GENTAMICIN <=2 S LEVOFLOXACIN <=0.5 S MEROPENEM <=1 S PIPERACILLIN/TAZOBACTAM >64 R TRIMETHOPRIM/SULFAMETHOXAZOLE <=0.5/9.5 S TETRACYCLINE <=4 S TOBRAMYCIN <=2 S Unless otherwise specified, Testing Performed by: [address] [address] For Inquires, the Physician may contact the Microbiology department at [phone] Objective: Assessment: 1. Encephalopathy. Resolved 2. COVID-19 positive. 3. Fever. Resolved 4. 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 Patient is refusing left BKA Swab cultures positive for Enterobacter MDRO and Mary I&D cultures positive for MDRO Enterobacter ESR 54, CRP 149. S/P LT BKA 5. End-stage renal disease, on hemodialysis. 6. Seizure disorder. 7. Coronary artery disease. 8. Hypertension. 9. Diabetes. Plan: Plan of Care Pt completed antibiotics Continue local wound care as directed Continue supportive care will sign off call with any questions JUAN ALBERTO COPE MD Jun 21, 2021 11:24
--- NOTE | 2021-06-21 13:29 | NUR ---
SW following. Discussed with [facility] still reviewing whether they can accept patient or not. MARIANO following up multiple times for decision. MARIANO will continue to follow. Addendum: 06/21/21 at 1608 by KYLAH QUINTANA Kathleen declined to take pt due to pt's non compliance as well as that the pt has used more SNF days than Kathleen initially thought. MARIANO faxed referral to [facility] to see if insurance may approve acute rehab due to pt's BKA. MARIANO left voicemail for pt's mother, Emma.
[2021-06-21 15:00] VITALS: BP 100/60
--- NOTE | 2021-06-21 16:39 | PDOC ---
FELICITY CORLEY [employer]LECT[employer]SEM[employer]IES SUPERVISOR 06/21/21 1639: CARDIO Progress Notes Date and Time Date of Service 06/21/21 Time of Evaluation 1245 Subjective Subjective: No Chest Pain, No shortness of breath, No Palpitations, Other (feels tired today ) Vitals Vitals Vital Signs Date Time Temp Pulse Resp B/P (MAP) Pulse Ox O2 Delivery O2 Flow Rate FiO2 06/21/21 15:00 98.2 75 18 100/60 (73) 100 Room Air 98.2 Weight Weight [ ] Input and Output Intake and Output Intake and Output 06/21/21 07:00 # Voids 1 Laboratory Labs Laboratory Tests Test 06/20/21 17:00 06/20/21 19:52 06/21/21 07:36 06/21/21 09:40 Glucose (Fingerstick) 192 mg/dL (70-99) 217 mg/dL (70-99) 169 mg/dL (70-99) Sodium Level 144 mmol/L (136-145) Potassium Level 4.1 mmol/L (3.5-5.1) Chloride Level 104 mmol/L (98-107) Carbon Dioxide Level 26 mmol/L (21-32) Anion Gap 14 (6-14) Blood Urea Nitrogen 39 mg/dL (8-26) Creatinine 7.4 mg/dL (0.7-1.3) Estimated GFR (Cockcroft-Gault) 7.7 Glucose Level 184 mg/dL (70-99) Calcium Level 8.6 mg/dL (8.5-10.1) Microbiology Micro Microbiology 05/28/21 Gram Stain - Final, Complete 05/28/21 Aerobic and Anaerobic Culture - Final, Complete 05/28/21 Antimicrobic Susceptibility - Final, Complete 05/26/21 Blood Culture - Final, Complete NO GROWTH AFTER 5 DAYS Review of Systems Constitutional: yes: other (CONFUSED) Ears/Nose/Throat: Yes: no symptom reported Eyes: Yes: no symptom reported Pulmonary: Yes no symptom reported Cardiovascular: Yes no symptom reported Gastrointestional: Yes: constipation Genitourinary: Yes: no symptom reported Musculoskeletal: Yes: leg pain, foot pain Skin: Yes no symptom reported Psychiatric/Neurological: Yes: depressed Endocrine: Yes: no symptom reported Hematologic/Lymphatic: Yes: no symptom reported Physical Exam HEENT: Neck Supple W Full Motion Chest: Symmetric LUNGS: Other (diminished bases ) Heart: RRR (atrial flutter) Abdomen: Soft N/T Extremities: Other (LBKA) Neurology: alert, oriented, follow commands Assessment Assessment 1. Severe LLE PAD: Abdominal aortogram revealed no significant aortoiliac disease bilaterally and moderate diffuse 50 to 60% stenosis involving the SFA with one-vessel runoff bilaterally. 2. S/P LBKA POD#3 3. CAD: s/p CABG. unclear if any recent w/u, clinically stable 4. ESRD on HD 5. PAFIB: rate controlled in atrial flutter. stable 6. HTN; low end. on midodrine 7. DM2 8. Anemia: s/p transfusion. hgb stable. 9. Sepsis 10. Hx of mild CM: Limited echo with EF 30-35% 11. Mild to moderate , moderate to severe TR. Estimated PAP 60 mmHg. Recommendations Metoprolol held with hypotension May use IV Dig for rate control as warranted Poor candidate for anticoagulation with anemia and prior hx of SDH. Continue baby ASA for stroke prevention Secondary prevention Fluid offloading via HD Supportive care. Outpt ischemic workup if none recent Justicifation of Admission Dx: Justifications for Admission: Justification of Admission Dx: N/A CARRIE MCCLAIN MD 06/22/21 1210: CARDIO Progress Notes Plan Plan Late entry for 06/21/21 The patient was seen and interviewed as well as examined at the bedside. The chart was reviewed. The case was discussed. Agree with the plan of care. FELICITY CORLEY APRN Jun 21, 2021 16:39 CARRIE MCCLAIN MD Jun 22, 2021 12:10
--- NOTE | 2021-06-21 17:02 | PDOC ---
Renal-Progress Notes Subjective Notes Notes FEELS WEAK AND TIRED Vitals Vitals Vital Signs Date Time Temp Pulse Resp B/P (MAP) Pulse Ox O2 Delivery O2 Flow Rate FiO2 06/21/21 15:00 98.2 75 18 100/60 (73) 100 Room Air 98.2 Weight Weight [ ] I.O. Intake and Output Intake and Output 06/21/21 07:00 # Voids 1 Labs Labs Laboratory Tests Test 06/20/21 19:52 06/21/21 07:36 06/21/21 09:40 Glucose (Fingerstick) 217 mg/dL (70-99) 169 mg/dL (70-99) Sodium Level 144 mmol/L (136-145) Potassium Level 4.1 mmol/L (3.5-5.1) Chloride Level 104 mmol/L (98-107) Carbon Dioxide Level 26 mmol/L (21-32) Anion Gap 14 (6-14) Blood Urea Nitrogen 39 mg/dL (8-26) Creatinine 7.4 mg/dL (0.7-1.3) Estimated GFR (Cockcroft-Gault) 7.7 Glucose Level 184 mg/dL (70-99) Calcium Level 8.6 mg/dL (8.5-10.1) Micro Micro Microbiology 05/28/21 Gram Stain - Final, Complete 05/28/21 Aerobic and Anaerobic Culture - Final, Complete 05/28/21 Antimicrobic Susceptibility - Final, Complete 05/26/21 Blood Culture - Final, Complete NO GROWTH AFTER 5 DAYS Review of Systems Constitutional: yes: other (CONFUSED) Ears/Nose/Throat: Yes: no symptom reported Eyes: Yes: no symptom reported Pulmonary: Yes no symptom reported Cardiovascular: Yes no symptom reported Gastrointestional: Yes: constipation Genitourinary: Yes: no symptom reported Musculoskeletal: Yes: leg pain, foot pain Skin: Yes no symptom reported Psychiatric/Neurological: Yes: depressed Endocrine: Yes: no symptom reported Hematologic/Lymphatic: Yes: no symptom reported Physical Exam General Appearance: no apparent distress Skin: warm Respiratory: decreased breath sounds Heart: S1S2 Abdomen: soft, bowel sounds present Genitourinary: bladder flat Neurology: alert, oriented, follow commands Assessment Assessment IMP ESRD-MWF ANEMIA DM II-LABILE BG ENCEPHALOPATHY-RESOLVED HTN HX LEFT TMA STUMP WOUND PROB SEPSIS HYPOTENSION-CORRECTED MALNUTRITION CARDIAC ARRHYTHMIA S/P L BKA PLAN HD TODAY UF TO TW CONT MIDODRINE VINNIE NEEDED ANTIBIOTICS WOUND CARE WILL FOLLOW NUBIA PATTON MD Jun 21, 2021 17:02
[2021-06-21] MEDS: CHOLECALCIFEROL (VITAMIN D3) 1,000 UNIT TABLET PO SCH (17:06)
[2021-06-21] MEDS: ASPIRIN ENTERIC COATED 81 MG TABLET.DR. PO SCH (17:06)
[2021-06-21] MEDS: LACTOBACILLUS RHAMNOSUS GG 1 CAPSULE. PO SCH ×2 (17:06→21:42)
[2021-06-21] MEDS: ATORVASTATIN CALCIUM 10 MG TABLET. PO SCH (17:06)
[2021-06-21] MEDS: CYANOCOBALAMIN (VITAMIN B-12) 1,000 MCG TABLET. PO SCH (17:06)
[2021-06-21] MEDS: EZETIMIBE 10 MG TABLET. PO SCH (17:07)
[2021-06-21] MEDS: levETIRAcetam 500 MG TABLET PO SCH ×2 (17:07→21:43)
[2021-06-21] MEDS: PREGABALIN 75 MG CAPSULE PO SCH ×2 (17:08→21:42)
[2021-06-21 19:00] VITALS: BP 111/65
[2021-06-21] MEDS: DULoxetine HCL 30 MG CAPSULE.DR PO SCH (21:43)
[2021-06-21] MEDS: MIRTAZAPINE 15 MG TABLET PO SCH (21:43)
[2021-06-21] MEDS: traZODone 50 MG TABLET. PO SCH (21:43)
[2021-06-21] MEDS: EPOETIN ALFA-EPBX for ESRD 20,000 UNIT/ML VIAL. SQ SCH (21:45)
[2021-06-21 23:00] VITALS: BP 111/65
[2021-06-22 03:00] VITALS: BP 98/64
[2021-06-22 07:00] VITALS: BP 114/62
[2021-06-22] MEDS: MIDODRINE 2.5 MG TABLET PO SCH ×3 (07:00→18:00)
[2021-06-22] MEDS: INSULIN LISPRO 300 UNITS/3 ML VIAL. SQ SCH ×3 (08:00→18:02)
[2021-06-22] MEDS: EZETIMIBE 10 MG TABLET. PO SCH (08:52)
[2021-06-22] MEDS: ATORVASTATIN CALCIUM 10 MG TABLET. PO SCH (08:52)
[2021-06-22] MEDS: CHOLECALCIFEROL (VITAMIN D3) 1,000 UNIT TABLET PO SCH (08:52)
[2021-06-22] MEDS: LACTOBACILLUS RHAMNOSUS GG 1 CAPSULE. PO SCH ×2 (08:52→21:17)
[2021-06-22] MEDS: CYANOCOBALAMIN (VITAMIN B-12) 1,000 MCG TABLET. PO SCH (08:52)
[2021-06-22] MEDS: ASPIRIN ENTERIC COATED 81 MG TABLET.DR. PO SCH (08:52)
[2021-06-22] MEDS: PANTOPRAZOLE 40 MG TABLET.DR. PO SCH (08:52)
[2021-06-22] MEDS: TOPIRAMATE 100 MG TABLET. PO SCH ×2 (08:53→21:17)
[2021-06-22] MEDS: levETIRAcetam 500 MG TABLET PO SCH ×2 (08:53→21:17)
[2021-06-22] MEDS: METOPROLOL SUCC 24HR ER 50 MG TAB.ER.24H. PO SCH (08:53)
[2021-06-22] MEDS: PREGABALIN 75 MG CAPSULE PO SCH ×2 (08:53→21:16)
[2021-06-22] MEDS: SODIUM HYPOCHLORITE 0.125% 473 ML BOTTLE. TP SCH (09:00)
--- NOTE | 2021-06-22 09:38 | PDOC ---
Provider Note Date of Service: DATE: 06/22/21 TIME: 09:35 Provider Note Provider Note Vascular S: Patient is resting in bed. He is without complaints. Denies any stump pain. O: Awake and alert Left BKA stump incision dry and intact, few open wounds that are now with eschar. IV right antecubital PC right chest CBC - BMP A/P: 1. Chronic renal failure, on hemodialysis. 2. Diabetes. 3. Peripheral arterial disease. 4. Nonhealing left foot wound. POD#7 Left BKA, doing well. -continue rooke boot protector, can leave incision open to air -PT/OT -SS for discharge planning -follow up in our office for incision check, will plan vein mapping for A-V access at that appointment. Justicifation of Admission Dx: Justifications for Admission: Justification of Admission Dx: N/A JALYN HUNT APRN Jun 22, 2021 09:38
--- NOTE | 2021-06-22 09:40 | PDOC ---
PROGRESS NOTES Date of Service: DATE: 06/22/21 TIME: 09:38 Subjective Subjective no new problems, sleeps a lot Objective Objective Vital Signs Date Time Temp Pulse Resp B/P (MAP) Pulse Ox O2 Delivery O2 Flow Rate FiO2 06/22/21 08:53 69 114/62 06/22/21 07:00 97.6 97 Room Air 97.6 06/21/21 23:00 17 2.0 Intake and Output 06/22/21 07:00 Output Total 240 ml Balance -240 ml Drainage Total 240 ml # Voids 1 # Bowel Movements 1 Physical Exam Abdomen: Normal bowel sounds Heart: Regular rate Extremities: No cyanosis, Other (Left TMA) General: mild distress HEENT: Atraumatic, Mucous membr. moist/pink Lungs: Other (Mildly decreased breath sounds) MUSCULOSKELETAL: Osteoarthritic changes both hands Psych/Mental Status: Mood NL COMMENT Lt BKA,incision clean Diagnosis Problem List Problems Medical Problems: (1) Altered mental status Status: Acute (2) COVID-19 Status: Acute (3) Draining postoperative wound Status: Acute (4) ESRD (end stage renal disease) on dialysis Status: Acute (5) Severe anemia Status: Acute Assessment Assessment Problems Medical Problems: (1) Altered mental status Status: Acute (2) COVID-19 Status: Acute (3) Draining postoperative wound Status: Acute (4) ESRD (end stage renal disease) on dialysis Status: Acute (5) Severe anemia Status: Acute A/P: 1. Chronic renal failure, on hemodialysis. 2. Diabetes. 3. Peripheral arterial disease. 4. Nonhealing left foot wound. 5, Covid infection PLAN:d/c to [facility] yesterday d/javan IV antibiotics, 06/19/21,incision clean spoke with caser up, POD#67 Left BKA, doing well. low bp on midodrine. Dec Lyrica dose. Plan Plan of Care Problems Medical Problems: (1) Altered mental status Status: Acute (2) COVID-19 Status: Acute (3) Draining postoperative wound Status: Acute (4) ESRD (end stage renal disease) on dialysis Status: Acute (5) Severe anemia Status: Acute Comment Review of Relevant I have reviewed the following items yifan (where applicable) has been applied. Labs Laboratory Tests Test 06/21/21 09:40 06/21/21 17:12 06/21/21 19:34 06/22/21 07:44 Sodium Level 144 mmol/L (136-145) Potassium Level 4.1 mmol/L (3.5-5.1) Chloride Level 104 mmol/L (98-107) Carbon Dioxide Level 26 mmol/L (21-32) Anion Gap 14 (6-14) Blood Urea Nitrogen 39 mg/dL (8-26) Creatinine 7.4 mg/dL (0.7-1.3) Estimated GFR (Cockcroft-Gault) 7.7 Glucose Level 184 mg/dL (70-99) Calcium Level 8.6 mg/dL (8.5-10.1) Glucose (Fingerstick) 154 mg/dL (70-99) 118 mg/dL (70-99) 131 mg/dL (70-99) Microbiology 05/28/21 Gram Stain - Final, Complete 05/28/21 Aerobic and Anaerobic Culture - Final, Complete 05/28/21 Antimicrobic Susceptibility - Final, Complete 05/26/21 Blood Culture - Final, Complete NO GROWTH AFTER 5 DAYS Vitals/I & O Vital Sign - Last 24 Hours 06/21/21 06/21/21 06/21/21 06/21/21 13:00 15:00 17:07 19:00 Temp 98.2 98.0 98.2 98.0 Pulse 75 75 75 81 Resp 18 17 B/P (MAP) 100/60 100/60 (73) 100/60 111/65 (80) Pulse Ox 100 100 O2 Delivery Room Air Room Air O2 Flow Rate 2.0 06/21/21 06/21/21 06/22/21 06/22/21 20:00 23:00 03:00 07:00 Temp 98.0 97.8 98.0 97.8 Pulse 81 74 69 Resp 17 B/P (MAP) 111/65 (80) 98/64 (75) 114/62 Pulse Ox 100 98 O2 Delivery Room Air Room Air Room Air O2 Flow Rate 2.0 2.0 06/22/21 06/22/21 07:00 08:53 Temp 97.6 97.6 Pulse 69 69 B/P (MAP) 114/62 (79) 114/62 Pulse Ox 97 O2 Delivery Room Air Intake and Output 06/21/21 06/21/21 06/22/21 15:00 23:00 07:00 Output Total 240 ml Balance -240 ml Justifications for Admission Other Justification STEVO KERNS MD Jun 22, 2021 09:40
[2021-06-22 11:00] VITALS: BP 89/46
--- NOTE | 2021-06-22 11:17 | PDOC ---
CARDIO Progress Notes Date and Time Date of Service 06/22/2021 Time of Evaluation 1050 Subjective Subjective: No Chest Pain, No shortness of breath, No Palpitations Vitals Vitals Vital Signs Date Time Temp Pulse Resp B/P (MAP) Pulse Ox O2 Delivery O2 Flow Rate FiO2 06/22/21 08:53 69 114/62 06/22/21 07:00 97.6 97 Room Air 97.6 06/21/21 23:00 17 2.0 Weight Weight [ ] Input and Output Intake and Output Intake and Output 06/22/21 06:59 Output Total 240 ml Balance -240 ml Drainage Total 240 ml # Voids 1 # Bowel Movements 1 Laboratory Labs Laboratory Tests Test 06/21/21 17:12 06/21/21 19:34 06/22/21 07:44 Glucose (Fingerstick) 154 mg/dL (70-99) 118 mg/dL (70-99) 131 mg/dL (70-99) Microbiology Micro Microbiology 05/28/21 Gram Stain - Final, Complete 05/28/21 Aerobic and Anaerobic Culture - Final, Complete 05/28/21 Antimicrobic Susceptibility - Final, Complete 05/26/21 Blood Culture - Final, Complete NO GROWTH AFTER 5 DAYS Review of Systems Constitutional: yes: other (CONFUSED) Ears/Nose/Throat: Yes: no symptom reported Eyes: Yes: no symptom reported Pulmonary: Yes no symptom reported Cardiovascular: Yes no symptom reported Gastrointestional: Yes: constipation Genitourinary: Yes: no symptom reported Musculoskeletal: Yes: leg pain, foot pain Skin: Yes no symptom reported Psychiatric/Neurological: Yes: depressed Endocrine: Yes: no symptom reported Hematologic/Lymphatic: Yes: no symptom reported Physical Exam HEENT: Neck Supple W Full Motion Chest: Symmetric LUNGS: Other (diminished bases ) Heart: RRR (atrial flutter 3:1) Abdomen: Soft N/T Extremities: Other (LBKA) Neurology: alert, oriented, follow commands Assessment Assessment 1. COVID +: off quarantine, doing well 2. Acute encephalopathy: resolved 3. ESRD on HD 4. PAFIB: rate controlled in atrial flutter. stable 5. CAD: s/p CABG. unclear if any recent w/u, clinically stable 6. HTN; controlled overall 7. DM2 8. S/P LBKA 9. Anemia: s/p transfusion. hgb stable. 11.3 10. Sepsis 11. Hx of mild CM: Limited echo with EF 30-35% 12. Mild to moderate , moderate to severe TR. Estimated PAP 60 mmHg. 13. Severe LLE PAD: Abdominal aortogram revealed no significant aortoiliac disease bilaterally and moderate diffuse 50 to 60% stenosis involving the SFA with one-vessel runoff bilaterally. Recommendations Continued metoprolol for rate control Poor candidate for anticoagulation with anemia and prior hx of SDH. Continue baby ASA for stroke prevention Secondary prevention measures Fluid offloading via HD Supportive care. Outpt ischemic workup if none recent Justicifation of Admission Dx: Justifications for Admission: Justification of Admission Dx: N/A TEJAL GUO APRN Jun 22, 2021 11:17
--- NOTE | 2021-06-22 12:59 | NUR ---
SW following. Discussed with RN, [facility] Erin still reviewing. They have left voicemail messages for Rosita Steve and pt's family to discuss intermediate frame tender plan. SW will continue to follow.
--- NOTE | 2021-06-22 13:46 | PDOC ---
Renal-Progress Notes Subjective Notes Notes NO NEW COMPLAINTS History of Present Illness Hx of present illness STILL HAS SIGNIFICANT DECONDITIONING WILL NEED REHAB TO IMPROVE Vitals Vitals Vital Signs Date Time Temp Pulse Resp B/P (MAP) Pulse Ox O2 Delivery O2 Flow Rate FiO2 06/22/21 13:09 58 89/46 06/22/21 11:00 97.5 99 Room Air 97.5 06/21/21 23:00 17 2.0 Weight Weight [ ] I.O. Intake and Output Intake and Output 06/22/21 07:00 Output Total 240 ml Balance -240 ml Drainage Total 240 ml # Voids 1 # Bowel Movements 1 Labs Labs Laboratory Tests Test 06/21/21 17:12 06/21/21 19:34 06/22/21 07:44 06/22/21 11:32 Glucose (Fingerstick) 154 mg/dL (70-99) 118 mg/dL (70-99) 131 mg/dL (70-99) 142 mg/dL (70-99) Micro Micro Microbiology 05/28/21 Gram Stain - Final, Complete 05/28/21 Aerobic and Anaerobic Culture - Final, Complete 05/28/21 Antimicrobic Susceptibility - Final, Complete 05/26/21 Blood Culture - Final, Complete NO GROWTH AFTER 5 DAYS Review of Systems Constitutional: yes: weakness, alert, oriented, other Ears/Nose/Throat: Yes: no symptom reported Eyes: Yes: no symptom reported Pulmonary: Yes no symptom reported Cardiovascular: Yes no symptom reported Gastrointestional: Yes: constipation Genitourinary: Yes: no symptom reported Musculoskeletal: Yes: leg pain, foot pain Skin: Yes no symptom reported Psychiatric/Neurological: Yes: depressed Endocrine: Yes: no symptom reported Hematologic/Lymphatic: Yes: no symptom reported Physical Exam General Appearance: no apparent distress Skin: warm Respiratory: decreased breath sounds Heart: S1S2 Abdomen: soft, bowel sounds present Genitourinary: bladder flat Neurology: alert, oriented, follow commands Assessment Assessment IMP ESRD-MWF ANEMIA DM II-LABILE BG ENCEPHALOPATHY-RESOLVED HTN HX LEFT TMA STUMP WOUND PROB SEPSIS HYPOTENSION-CORRECTED MALNUTRITION CARDIAC ARRHYTHMIA S/P L BKA PLAN HD TOMORROW D/C PLANNING CONT MIDODRINE VINNIE NEEDED ANTIBIOTICS WOUND CARE WILL FOLLOW NUBIA PATTON MD Jun 22, 2021 13:46
[2021-06-22 15:00] VITALS: BP 104/63
[2021-06-22 19:00] VITALS: BP 95/55
[2021-06-22] MEDS: traZODone 50 MG TABLET. PO SCH (21:17)
[2021-06-22] MEDS: MIRTAZAPINE 15 MG TABLET PO SCH (21:17)
[2021-06-22] MEDS: DULoxetine HCL 30 MG CAPSULE.DR PO SCH (21:17)
[2021-06-22 23:00] VITALS: BP 93/50
[2021-06-23 03:00] VITALS: BP 117/76
[2021-06-23] MEDS: PANTOPRAZOLE 40 MG TABLET.DR. PO SCH (06:10)
[2021-06-23] MEDS: MIDODRINE 2.5 MG TABLET PO SCH ×3 (06:15→18:06)
[2021-06-23 07:40] VITALS: BP 140/77
[2021-06-23] MEDS: INSULIN LISPRO 300 UNITS/3 ML VIAL. SQ SCH ×3 (08:00→16:46)
[2021-06-23] MEDS ORDERED: IV NORMAL SALINE 1000ML BAG 1,000 ML IV PRN ×2 (08:30)
[2021-06-23] MEDS ORDERED: DIALYSIS PATIENT. MC PRN (08:30)
--- NOTE | 2021-06-23 09:28 | PDOC ---
TEJAL GUO [employer] SERVICES MANAGER 06/23/21 0928: CARDIO Progress Notes Date and Time Date of Service 06/23/2021 Time of Evaluation 0910 Subjective Subjective: No Chest Pain, No shortness of breath, No Palpitations Vitals Vitals Vital Signs Date Time Temp Pulse Resp B/P (MAP) Pulse Ox O2 Delivery O2 Flow Rate FiO2 06/23/21 06:15 66 149/82 06/23/21 03:00 98.2 18 96 Room Air 2.0 98.2 Weight Weight [ ] Input and Output Intake and Output Intake and Output 06/23/21 07:00 Intake Total 100 ml Balance 100 ml Intake Oral 100 ml # Voids 1 Laboratory Labs Laboratory Tests Test 06/22/21 11:32 06/22/21 16:46 06/22/21 19:35 06/23/21 08:23 Glucose (Fingerstick) 142 mg/dL (70-99) 190 mg/dL (70-99) 177 mg/dL (70-99) 141 mg/dL (70-99) Microbiology Micro Microbiology 05/28/21 Gram Stain - Final, Complete 05/28/21 Aerobic and Anaerobic Culture - Final, Complete 05/28/21 Antimicrobic Susceptibility - Final, Complete 05/26/21 Blood Culture - Final, Complete NO GROWTH AFTER 5 DAYS Review of Systems Constitutional: yes: weakness, alert, oriented, other Ears/Nose/Throat: Yes: no symptom reported Eyes: Yes: no symptom reported Pulmonary: Yes no symptom reported Cardiovascular: Yes no symptom reported Gastrointestional: Yes: constipation Genitourinary: Yes: no symptom reported Musculoskeletal: Yes: leg pain, foot pain Skin: Yes no symptom reported Psychiatric/Neurological: Yes: depressed Endocrine: Yes: no symptom reported Hematologic/Lymphatic: Yes: no symptom reported Physical Exam HEENT: Neck Supple W Full Motion Chest: Symmetric LUNGS: Other (diminished bases ) Heart: RRR (atrial flutter 3:1) Abdomen: Soft N/T Extremities: Other (LBKA) Neurology: alert, oriented, follow commands Assessment Assessment 1. COVID +: off quarantine, doing well 2. Acute encephalopathy: resolved 3. ESRD on HD 4. PAFIB: rate controlled in atrial flutter. stable 5. CAD: s/p CABG. unclear if any recent w/u, clinically stable 6. HTN; controlled overall 7. DM2 8. S/P LBKA 9. Anemia: s/p transfusion. hgb stable. 11.3 10. Sepsis 11. Hx of mild CM: Limited echo with EF 30-35% 12. Mild to moderate , moderate to severe TR. Estimated PAP 60 mmHg. 13. Severe LLE PAD: Abdominal aortogram revealed no significant aortoiliac disease bilaterally and moderate diffuse 50 to 60% stenosis involving the SFA with one-vessel runoff bilaterally. Recommendations Continued metoprolol for rate control Poor candidate for anticoagulation with anemia and prior hx of SDH. Continue baby ASA for stroke prevention Secondary prevention measures Fluid offloading via HD today Supportive care. Outpt ischemic workup if none recent Justicifation of Admission Dx: Justifications for Admission: Justification of Admission Dx: N/A CARRIE MCCLAIN MD 06/23/21 1720: CARDIO Progress Notes Plan Plan The patient was seen and interviewed as well as examined at the bedside. The chart was reviewed. The case was discussed. Agree with the plan of care. TEJAL GUO APRN Jun 23, 2021 09:28 CARRIE MCCLAIN MD Jun 23, 2021 17:20
--- NOTE | 2021-06-23 10:51 | CONS ---
DATE OF CONSULTATION: 06/23/2021 ATTENDING PHYSICIAN: Brook Valle MD REASON FOR CONSULTATION: The patient was seen at the request of Dr. Valle for rehab evaluation. HISTORY OF PRESENT ILLNESS: This is a 55-year-old right-handed male patient. He is a resident of [facility] for the last several months, noted by the nursing staff with altered mental state, so he was admitted on 05/26/2021 through the Emergency Room. The patient was noted with anemia, low platelet count, sed rate of 64, blood sugar of 197, C-reactive protein of 149. He was tested positive for COVID-19 infection. X-ray of chest revealed moderate diffuse interstitial thickening with ill-defined opacities, may represent pulmonary edema. The patient is status post left foot amputation. CT scan of the brain and cervical spine failed to reveal any acute abnormalities. It revealed chronic right basal ganglia, left parietal infarct and degenerative changes. The patient with end-stage renal disease, on hemodialysis and also noted with infected left foot and COVID-19 infection. He received antibiotics and blood transfusion. The patient was also noted lethargic. The patient also with known diabetes mellitus, atrial fibrillation, coronary artery disease status post coronary artery bypass graft, ischemic cardiomyopathy, hypertension, old cerebrovascular accident, peripheral neuropathy, chronic subdural hematoma, seizure disorder. The patient used to live with his mother and sister, has son and daughter, continues to smoke. 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 The patient denies any significant pain at present time. PHYSICAL EXAMINATION: GENERAL: Today revealed a middle-aged male. He is alert, oriented to place and person, follows commands appropriately. NEUROLOGIC: Moves all 4 extremities voluntarily where he had 4/5 grade muscle strength with relatively increased weakness in hand intrinsic muscles with muscle atrophy and also with relatively increased weakness of right foot dorsiflexor muscles where he had only 2-/5 grade muscle strength. Deep tendon reflexes are absent at both knees and right ankle. He had decreased touch and pinprick sensation over sock and glove distribution. He had some stiffness of both hip joints. He is keeping his left knee in a position of slight flexion. EXTREMITIES: He had gopi to his left below-knee stump. He had skin irritation over left knee dorsal aspect and also multiple skin lesions on his right lower extremity. The patient was examined while he is on dialysis table, so I have not tested his mobility skills at present time. He had some overgrown toenails of his right foot. 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 The patient with known hypertension, atrial fibrillation, coronary artery disease status post coronary artery bypass graft, end-stage renal disease, on hemodialysis, ischemic cardiomyopathy, hypertension, old cerebrovascular accident, chronic subdural hematoma, seizure disorder and recent COVID-19 infection. RECOMMENDATIONS: Agree with the plan for physical therapy and occupational therapy and to [facility] care unit when he is medically stable. Dr. Valle, I appreciate asking me to participate in the care of this interesting patient. I will be glad to see him for a followup with you on as needed basis. CALVIN/ALISSA/TOM LYNN: Clive TID: [id number]
[2021-06-23] MEDS: TOPIRAMATE 100 MG TABLET. PO SCH ×2 (13:29→21:49)
[2021-06-23] MEDS: METOPROLOL SUCC 24HR ER 50 MG TAB.ER.24H. PO SCH (13:30)
[2021-06-23] MEDS: ASPIRIN ENTERIC COATED 81 MG TABLET.DR. PO SCH (13:31)
[2021-06-23] MEDS: CYANOCOBALAMIN (VITAMIN B-12) 1,000 MCG TABLET. PO SCH (13:31)
[2021-06-23] MEDS: CHOLECALCIFEROL (VITAMIN D3) 1,000 UNIT TABLET PO SCH (13:31)
[2021-06-23] MEDS: PREGABALIN 75 MG CAPSULE PO SCH ×2 (13:31→21:50)
[2021-06-23] MEDS: EZETIMIBE 10 MG TABLET. PO SCH (13:31)
--- NOTE | 2021-06-23 13:31 | PDOC ---
Renal-Progress Notes Subjective Notes Notes NO NEW COMPLAINTS History of Present Illness Hx of present illness TIRED BUT FEELING BETTER Vitals Vitals Vital Signs Date Time Temp Pulse Resp B/P (MAP) Pulse Ox O2 Delivery O2 Flow Rate FiO2 06/23/21 07:40 98.8 73 18 140/77 (98) 95 Room Air 2.0 98.8 Weight Weight [ ] I.O. Intake and Output Intake and Output 06/23/21 07:00 Intake Total 100 ml Balance 100 ml Intake Oral 100 ml # Voids 1 Labs Labs Laboratory Tests Test 06/22/21 16:46 06/22/21 19:35 06/23/21 08:23 Glucose (Fingerstick) 190 mg/dL (70-99) 177 mg/dL (70-99) 141 mg/dL (70-99) Micro Micro Microbiology 05/28/21 Gram Stain - Final, Complete 05/28/21 Aerobic and Anaerobic Culture - Final, Complete 05/28/21 Antimicrobic Susceptibility - Final, Complete 05/26/21 Blood Culture - Final, Complete NO GROWTH AFTER 5 DAYS Review of Systems Constitutional: yes: weakness, alert, oriented, other Ears/Nose/Throat: Yes: no symptom reported Eyes: Yes: no symptom reported Pulmonary: Yes no symptom reported Cardiovascular: Yes no symptom reported Gastrointestional: Yes: constipation Genitourinary: Yes: no symptom reported Musculoskeletal: Yes: leg pain, foot pain Skin: Yes no symptom reported Psychiatric/Neurological: Yes: depressed Endocrine: Yes: no symptom reported Hematologic/Lymphatic: Yes: no symptom reported Physical Exam General Appearance: no apparent distress Skin: warm Respiratory: decreased breath sounds Heart: S1S2 Abdomen: soft, bowel sounds present Genitourinary: bladder flat Neurology: alert, oriented, follow commands Assessment Assessment IMP ESRD-MWF ANEMIA DM II-LABILE BG ENCEPHALOPATHY-RESOLVED HTN HX LEFT TMA STUMP WOUND PROB SEPSIS HYPOTENSION-CORRECTED MALNUTRITION CARDIAC ARRHYTHMIA S/P L BKA PLAN HD TODAY UF TO TW CONT MIDODRINE VINNIE NEEDED ANTIBIOTICS WOUND CARE WILL FOLLOW NUBIA PATTON MD Jun 23, 2021 13:31
[2021-06-23] MEDS: levETIRAcetam 500 MG TABLET PO SCH ×2 (13:32→21:50)
[2021-06-23] MEDS: LACTOBACILLUS RHAMNOSUS GG 1 CAPSULE. PO SCH ×2 (13:32→21:50)
[2021-06-23] MEDS: ATORVASTATIN CALCIUM 10 MG TABLET. PO SCH (13:32)
[2021-06-23] MEDS: MUPIROCIN 2 % OINTMENT 22GM TUBE. TP SCH ×2 (13:33→21:51)
[2021-06-23] MEDS: MINERAL OIL/PETROLATUM TOPICAL CREAM 113GM JAR. TP SCH ×2 (13:33→21:51)
[2021-06-23 14:17] VITALS: BP 122/62
--- NOTE | 2021-06-23 14:45 | PN ---
DATE: 06/23/2021 SUBJECTIVE: The patient is resting, slightly propped up in bed, having his scheduled hemodialysis. On questioning him, he denied any complaint, in particular, denied any pain. He apparently was accepted at [facility]; however, we are waiting for the insurance approval. Nursing staff did not voice any concerns that he had an uneventful night. PHYSICAL EXAMINATION: GENERAL: When I examined him, he looked well and was clearly in no apparent respiratory distress, pale, cachectic, but not jaundiced, cyanosed. No lymphadenopathy. No thyromegaly. No jugular venous distention. No limb edema. VITAL SIGNS: His heart rate was 72, blood pressure was 140/77, temperature was 98.8, respiratory rate was 18 and oxygen saturation was 98% on 2 liters of oxygen. HEAD, EYES, EARS, NOSE AND THROAT: Normocephalic, atraumatic. NECK: Supple. HEART: Normal first and second heart sounds. No gallop or murmur. CHEST: Clear to auscultation. No crepitation or rhonchi. ABDOMEN: Scaphoid, soft, nontender. NEUROLOGIC: He was awake, alert, responding appropriately. All cranial nerves intact. He moves upper extremities without difficulty. EXTREMITIES: He is status post right below-knee amputation. The stump wound seems to be healing well with gopi still in place. There is no redness, tenderness or discharge. His intake and output were incompletely recorded. LABORATORY DATA: Most recent lab work showed white cell count of 10,000, hemoglobin 11, hematocrit 38, MCV 91, and platelet count of 153,000. His chemistry is variable, blood sugar is well controlled. ASSESSMENT: 1. Severe peripheral arterial disease, status post right below-knee amputation. 2. The patient has asymptomatic COVID-19 infection. He is now off the quarantine. 3. The patient has end-stage renal disease, on hemodialysis, Monday, Monday, Monday. 4. Type 1 diabetes with multiple complications. 5. Atrial fibrillation, rate controlled, well anticoagulated. 6. Coronary artery disease status post coronary artery bypass graft surgery. 7. Ischemic cardiomyopathy. 8. Hypertension. 9. Cerebrovascular accident. 10. Peripheral neuropathy. 11. History of chronic subdural hematoma that apparently has resolved. 12. Seizure disorder. 13. Peripheral arterial disease, status post right below-knee amputation. 14. Metabolic encephalopathy that has resolved. PLAN: To continue with wound care. Continue the hemodialysis as per Nephrology team. Continue with pain management. Continue with midodrine for hypotension. Continue with Keppra for seizure disorder. Continue with Epogen for anemia of chronic kidney disease. Continue to monitor his blood sugar and adjust insulin as needed. Continue with DVT and GI prophylaxis. Continue with physical and occupational therapy. We will discharge him to [facility] once his insurance approves that. ALLISON DR: Tyler TID: [id number]
--- NOTE | 2021-06-23 16:35 | RAD ---
EXAM: Bilateral upper extremity venous mapping. HISTORY: Preoperative evaluation. Prior left upper extremity AV fistula. TECHNIQUE: Sonographic imaging of the upper extremity veins was performed. COMPARISON: None. FINDINGS: The right cephalic vein is thrombosed at the level of the antecubital fossa. There are mukhrejee nt small caliber pleural basilic veins with the forearms. The left cephalic vein is thrombosed within the forearm and there is a thrombosed AV fistula at the left antecubital fossa. The right cephalic vein measures 2.1 mm within the proximal upper arm, 2.5 mm within the mid upper ar m, 2.9 mm within the distal upper arm, is thrombosed at the antecubital fossa, measures 1.1 mm within the proximal forearm, 1.1 mm within the mid forearm and 1.1 mm within the distal forearm. The right basilic vein measures 5.0 mm within the proximal upper arm, 3.3 mm within the mid upper arm , 0.9 mm within the distal upper arm, 1.1 mm within the proximal forearm, 1.0 mm within the mid forea rm and 1.2 mm within the distal forearm. The left cephalic vein measures 3.0 mm within the proximal upper arm, is obscured and the mid upper a rm is thrombosed within the distal upper arm, the level of an AV fistula within the antecubital fossa and within the forearm. The left basilic vein measures 4.0 mm within the proximal upper arm, 3.4 mm within the mid upper arm, 3.8 mm within the distal upper arm, 1.5 mm within the proximal forearm, 1.0 mm within the mid forear m and 1.1 mm within the distal forearm. IMPRESSION: 1. Bilateral cephalic and basilic vein caliber measurements, described above. 2. Thrombosed right cephalic vein at the antecubital fossa. 3. Thrombosed left cephalic vein within the upper arm and forearm and thrombosed left AV fistula with in the antecubital fossa. Electronically signed by: Priscilla Anderson MD (06/23/2021 4:33 PM) [id number]
[2021-06-23 19:00] VITALS: BP 106/60
[2021-06-23] MEDS: MIRTAZAPINE 15 MG TABLET PO SCH (21:50)
[2021-06-23] MEDS: traZODone 50 MG TABLET. PO SCH (21:50)
[2021-06-23] MEDS: DULoxetine HCL 30 MG CAPSULE.DR PO SCH (21:51)
[2021-06-23] MEDS: EPOETIN ALFA-EPBX for ESRD 20,000 UNIT/ML VIAL. SQ SCH (21:52)
[2021-06-23 23:00] VITALS: BP 119/69
[2021-06-24 03:00] VITALS: BP 121/70
[2021-06-24] MEDS: MIDODRINE 2.5 MG TABLET PO SCH ×3 (06:19→16:45)
[2021-06-24 06:20] VITALS: BP 134/78
[2021-06-24] MEDS: ASPIRIN ENTERIC COATED 81 MG TABLET.DR. PO SCH (08:50)
[2021-06-24] MEDS: CYANOCOBALAMIN (VITAMIN B-12) 1,000 MCG TABLET. PO SCH (08:51)
[2021-06-24] MEDS: LACTOBACILLUS RHAMNOSUS GG 1 CAPSULE. PO SCH ×2 (08:51→20:37)
[2021-06-24] MEDS: TOPIRAMATE 100 MG TABLET. PO SCH ×2 (08:51→20:37)
[2021-06-24] MEDS: levETIRAcetam 500 MG TABLET PO SCH ×2 (08:51→20:37)
[2021-06-24] MEDS: ATORVASTATIN CALCIUM 10 MG TABLET. PO SCH (08:51)
[2021-06-24] MEDS: EZETIMIBE 10 MG TABLET. PO SCH (08:51)
[2021-06-24] MEDS: CHOLECALCIFEROL (VITAMIN D3) 1,000 UNIT TABLET PO SCH (08:51)
[2021-06-24] MEDS: PREGABALIN 75 MG CAPSULE PO SCH ×2 (08:52→20:37)
[2021-06-24] MEDS: METOPROLOL SUCC 24HR ER 50 MG TAB.ER.24H. PO SCH (08:52)
[2021-06-24] MEDS: PANTOPRAZOLE 40 MG TABLET.DR. PO SCH (08:52)
[2021-06-24] MEDS: INSULIN LISPRO 300 UNITS/3 ML VIAL. SQ SCH ×3 (08:55→16:43)
[2021-06-24] MEDS: SODIUM HYPOCHLORITE 0.125% 473 ML BOTTLE. TP SCH (08:59)
[2021-06-24] MEDS: MUPIROCIN 2 % OINTMENT 22GM TUBE. TP SCH ×2 (08:59→20:39)
[2021-06-24] MEDS: MINERAL OIL/PETROLATUM TOPICAL CREAM 113GM JAR. TP SCH ×2 (08:59→20:39)
--- NOTE | 2021-06-24 09:41 | PN ---
PROGRESS NOTES Date of Service DATE: 06/24/21 TIME: 09:38 Subjective Subjective No new complaints. 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 Diagnosis PROBLEM LIST Problems Medical Problems: (1) Altered mental status Status: Acute (2) COVID-19 Status: Acute (3) Draining postoperative wound Status: Acute (4) ESRD (end stage renal disease) on dialysis Status: Acute (5) Severe anemia Status: Acute Assessment Assessment Problems Medical Problems: (1) Altered mental status Status: Acute (2) COVID-19 Status: Acute (3) Draining postoperative wound Status: Acute (4) ESRD (end stage renal disease) on dialysis Status: Acute (5) Severe anemia Status: Acute Plan Plan of Care To continue present rehab efforts as tolerated. Comment Review of Relevant I have reviewed the following items yifan (where applicable) has been applied. Labs Laboratory Tests Test 06/22/21 11:32 06/22/21 16:46 06/22/21 19:35 06/23/21 08:23 Glucose (Fingerstick) 142 mg/dL (70-99) 190 mg/dL (70-99) 177 mg/dL (70-99) 141 mg/dL (70-99) Test 06/23/21 16:22 06/23/21 19:55 06/24/21 06:00 06/24/21 07:25 Glucose (Fingerstick) 178 mg/dL (70-99) 218 mg/dL (70-99) 215 mg/dL (70-99) Hemoglobin 10.6 g/dL (13.0-17.5) Laboratory Tests Test 06/23/21 16:22 06/23/21 19:55 06/24/21 06:00 06/24/21 07:25 Glucose (Fingerstick) 178 mg/dL (70-99) 218 mg/dL (70-99) 215 mg/dL (70-99) Hemoglobin 10.6 g/dL (13.0-17.5) Microbiology 05/28/21 Gram Stain - Final, Complete 05/28/21 Aerobic and Anaerobic Culture - Final, Complete 05/28/21 Antimicrobic Susceptibility - Final, Complete 05/26/21 Blood Culture - Final, Complete NO GROWTH AFTER 5 DAYS Medications Current Medications Sodium Chloride 1,000 ml @ 1,000 mls/hr 1X ONCE IV ; Start 05/26/21 at 01:30; Stop 05/26/21 at 02:29; Status DC Piperacillin Sod/ Tazobactam Sod (Zosyn Per Pharmacy) 1 each PRN DAILY PRN MC SEE COMMENTS; Start 05/26/21 at 01:30; Status Cancel Piperacillin Sod/ Tazobactam Sod 3.375 gm/Sodium Chloride 50 ml @ 100 mls/hr 1X ONCE IV Last administered on 05/26/21at 03:25; Start 05/26/21 at 02:15; Stop 05/26/21 at 02:44; Status DC Vancomycin HCl (Vanco Per Pharmacy) 1 each PRN DAILY PRN MC SEE COMMENTS Last administered on 06/18/21at 13:56; Start 05/26/21 at 03:15; Stop 06/19/21 at 12:13; Status DC Sodium Chloride 500 ml @ 500 mls/hr 1X ONCE IV Last administered on 05/26/21at 03:25; Start 05/26/21 at 03:30; Stop 05/26/21 at 04:29; Status DC Ondansetron HCl (Zofran) 4 mg PRN Q8HRS PRN IVP NAUSEA/VOMITING; Start 05/26/21 at 03:30; Stop 05/27/21 at 03:29; Status DC Acetaminophen (Tylenol) 650 mg PRN Q4HRS PRN PO FEVER > 100.3'F; Start 05/26/21 at 03:30; Stop 05/27/21 at 03:29; Status DC Insulin Human Lispro (HumaLOG) 0-5 UNITS TIDWMEALS SQ Last administered on 05/26/21at 09:09; Start 05/26/21 at 08:00; Stop 05/26/21 at 12:46; Status DC Dextrose (Dextrose 50%-Water Syringe) 12.5 gm PRN Q15MIN PRN IV SEE COMMENTS; Start 05/26/21 at 03:30; Status Cancel Vancomycin HCl 1.75 gm/Sodium Chloride 500 ml @ 250 mls/hr 1X ONCE IV Last administered on 05/26/21at 05:47; Start 05/26/21 at 06:00; Stop 05/26/21 at 07:59; Status DC Piperacillin Sod/ Tazobactam Sod 2.25 gm/Sodium Chloride 50 ml @ 100 mls/hr Q8HRS IV Last administered on 06/02/21at 05:35; Start 05/26/21 at 08:00; Stop 06/02/21 at 08:27; Status DC Sodium Hypochlorite (Dakin'S 1/4 Strength) 1 lópez BID TP Last administered on 06/09/21at 20:23; Start 05/26/21 at 11:00; Stop 06/11/21 at 10:19; Status DC Aspirin (Ecotrin) 81 mg DAILY PO Last administered on 06/24/21at 08:50; Start 05/26/21 at 14:00 Atorvastatin Calcium (Lipitor) 10 mg DAILY PO Last administered on 06/24/21 08:51; Start 05/26/21 at 14:00 Cyanocobalamin (Vitamin B-12) 1,000 mcg DAILY PO Last administered on 06/24/21 08:51; Start 05/27/21 at 09:00 EZETIMIBE (Zetia) 10 mg DAILY PO Last administered on 06/24/21at 08:51; Start 05/26/21 at 14:00 Topiramate (Topamax) 100 mg BID PO Last administered on 06/24/21 08:51; Start 05/26/21 at 14:00 Trazodone HCl (Desyrel) 50 mg QHS PO Last administered on 06/23/21at 21:50; Start 05/26/21 at 21:00 Vitamin D (Vitamin D3) 1,000 unit DAILY PO Last administered on 06/24/21 08:51; Start 05/26/21 at 14:00 Duloxetine HCl (Cymbalta) 60 mg HS PO Last administered on 06/23/21at 21:51; Start 05/26/21 at 21:00 Non-Formulary Medication (Icosapent Ethyl (Vascepa)) 2 cap BID PO ; Start 05/15 07/06 at 21:00; Status UNV Mirtazapine (Remeron) 45 mg QHS PO Last administered on 06/23/21at 21:50; Start 05/26/21 at 21:00 Pantoprazole Sodium (Protonix) 40 mg DAILYAC PO Last administered on 06/24/21at 08:52; Start 05/26/21 at 14:00 Pregabalin (Lyrica) 225 mg BID PO Last administered on 06/22/21at 08:53; Start 05/26/21 at 14:00; Stop 06/22/21 at 09:38; Status DC Promethazine HCl (Phenergan) 25 mg PRN Q6HRS PRN PO NAUSEA/VOMITING Last administered on 06/17/21 21:21; Start 05/26/21 at 13:00 Levetiracetam 100 ml @ 400 mls/hr Q12HR IV ; Start 05/26/21 at 21:00; Status UNV Insulin Human Lispro (HumaLOG) 0-5 UNITS TIDWMEALS SQ Last administered on 06/24/21at 08:55; Start 05/26/21 at 17:00 Dextrose (Dextrose 50%-Water Syringe) 12.5 gm PRN Q15MIN PRN IV SEE COMMENTS; Start 05/26/21 at 12:45 Levetiracetam (Keppra) 500 mg BID PO ; Start 05/26/21 at 14:00; Status Cancel Lactobacillus Rhamnosus (Culturelle) 1 cap BID PO Last administered on 06/24/21at 08:51; Start 05/26/21 at 21:00 Levetiracetam 100 ml @ 400 mls/hr Q12HR IV Last administered on 05/29/21at 21:38; Start 05/26/21 at 14:00; Stop 05/29/21 at 23:00; Status DC Epoetin Catalino-epbx (RETACRIT for ESRD PTS) 10,000 unit MoWeFr@2100 SQ Last administered on 06/23/21at 21:52; Start 05/26/21 at 21:00 Vancomycin HCl (Vancomycin Random Level) 1 each 1X ONCE MC Last administered on 05/27/21at 05:00; Start 05/27/21 at 05:00; Stop 05/27/21 at 05:01; Status DC Info (PHARMACY MONITORING -- do not chart) 1 each PRN DAILY PRN MC SEE COMMENTS; Start 05/26/21 at 18:30; Status Cancel Vancomycin HCl (Vancomycin Random Level) 1 each 1X ONCE MC Last administered on 05/29/21at 06:00; Start 05/29/21 at 06:00; Stop 05/29/21 at 06:01; Status DC Sodium Chloride 1,000 ml @ 1,000 mls/hr Q1H PRN IV hypotension; Start 05/28/21 at 11:45; Stop 05/28/21 at 17:44; Status DC Sodium Chloride (Normal Saline Flush) 10 ml 1X PRN PRN IV AP catheter pack; Start 05/28/21 at 11:45; Stop 05/29/21 at 11:44; Status DC Sodium Chloride (Normal Saline Flush) 10 ml 1X PRN PRN IV SAUSAGE STUFFER catheter pack; Start 05/28/21 at 11:45; Stop 05/29/21 at 11:44; Status DC Sodium Chloride 1,000 ml @ 400 mls/hr Q2H30M PRN IV PATENCY; Start 05/28/21 at 11:45; Stop 05/28/21 at 23:44; Status DC Info (PHARMACY MONITORING -- do not chart) 1 each PRN DAILY PRN MC SEE JESÚS TS; Start 05/28/21 at 11:45; Status UNV Info (PHARMACY MONITORING -- do not chart) 1 each PRN DAILY PRN MC SEE COMMENTS; Start 05/28/21 at 11:45; Status UNV Metoprolol Succinate (Toprol Xl) 50 mg DAILY PO Last administered on 06/24/21at 08:52; Start 05/28/21 at 14:00 Vancomycin HCl (Vancomycin Random Level) 1 each 1X ONCE MC Last administered on 06/02/21at 06:00; Start 06/02/21 at 06:00; Stop 06/02/21 at 06:01; Status DC Levetiracetam (Keppra) 500 mg BID PO Last administered on 06/24/21at 08:51; Start 05/30/21 at 09:00 Perflutren Protein Type A Microsphe (Optison) 0.66 mg 1X ONCE IV ; Start 05/31/21 at 08:15; Stop 05/31/21 at 08:16; Status DC Sodium Chloride 1,000 ml @ 1,000 mls/hr Q1H PRN IV hypotension; Start 05/31/21 at 10:15; Stop 05/31/21 at 16:14; Status DC Albumin Human 200 ml @ 200 mls/hr 1X PRN PRN IV Hypotension; Start 05/31/21 at 10:15; Stop 05/31/21 at 16:14; Status DC Sodium Chloride 1,000 ml @ 400 mls/hr Q2H30M PRN IV PATENCY; Start 05/31/21 at 10:15; Stop 05/31/21 at 22:14; Status DC Info (PHARMACY MONITORING -- do not chart) 1 each PRN DAILY PRN MC SEE COMMENTS; Start 05/31/21 at 10:15; Status Cancel Meropenem 500 mg/ Sodium Chloride 50 ml @ 100 mls/hr DAILY IV Last administered on 06/19/21at 09:52; Start 06/02/21 at 09:00; Stop 06/19/21 at 22:00; Status DC Fluconazole (Diflucan) 200 mg DAILY PO Last administered on 06/20/21at 09:23; Start 06/02/21 at 09:00; Stop 06/21/21 at 13:24; Status DC Vancomycin HCl 500 mg/Sodium Chloride 100 ml @ 100 mls/hr QMWF IV Last administered on 06/11/21at 14:47; Start 06/04/21 at 16:00; Stop 06/14/21 at 12:18; Status DC Sodium Chloride 1,000 ml @ 1,000 mls/hr Q1H PRN IV hypotension; Start 06/02/21 at 14:15; Stop 06/02/21 at 20:14; Status DC Albumin Human 100 ml @ 200 mls/hr 1X PRN PRN IV Hypotension Last administered on 06/02/21at 15:00; Start 06/02/21 at 14:15; Stop 06/02/21 at 20:14; Status DC Sodium Chloride 1,000 ml @ 400 mls/hr Q2H30M PRN IV PATENCY; Start 06/02/21 at 14:15; Stop 06/03/21 at 02:14; Status DC Info (PHARMACY MONITORING -- do not chart) 1 each PRN DAILY PRN MC SEE COMMENTS; Start 06/02/21 at 14:15; Status Cancel Info (PHARMACY MONITORING -- do not chart) 1 each PRN DAILY PRN MC SEE COMMENTS; Start 06/02/21 at 14:15; Status Cancel Sodium Chloride 1,000 ml @ 1,000 mls/hr Q1H PRN IV hypotension; Start 06/04/21 at 08:15; Stop 06/04/21 at 14:14; Status DC Albumin Human 200 ml @ 200 mls/hr 1X PRN PRN IV Hypotension; Start 06/04/21 at 08:15; Stop 06/04/21 at 14:14; Status DC Sodium Chloride (Normal Saline Flush) 10 ml 1X PRN PRN IV AP catheter pack; Start 06/04/21 at 08:15; Stop 06/05/21 at 08:14; Status DC Sodium Chloride (Normal Saline Flush) 10 ml 1X PRN PRN IV SAUSAGE STUFFER catheter pack; Start 06/04/21 at 08:15; Stop 06/05/21 at 08:14; Status DC Sodium Chloride 1,000 ml @ 400 mls/hr Q2H30M PRN IV PATENCY; Start 06/04/21 at 08:15; Stop 06/04/21 at 20:14; Status DC Info (PHARMACY MONITORING -- do not chart) 1 each PRN DAILY PRN MC SEE COMMENTS; Start 06/04/21 at 08:15; Status UNV Info (PHARMACY MONITORING -- do not chart) 1 each PRN DAILY PRN MC SEE COMMENTS; Start 06/04/21 at 08:15; Stop 06/09/21 at 07:47; Status DC Sodium Chloride 1,000 ml @ 1,000 mls/hr Q1H PRN IV hypotension; Start 06/07/21 at 09:15; Stop 06/07/21 at 15:14; Status DC Albumin Human 200 ml @ 200 mls/hr 1X PRN PRN IV Hypotension; Start 06/07/21 at 09:15; Stop 06/07/21 at 15:14; Status DC Sodium Chloride 1,000 ml @ 400 mls/hr Q2H30M PRN IV PATENCY; Start 06/07/21 at 09:15; Stop 06/07/21 at 21:14; Status DC Info (PHARMACY MONITORING -- do not chart) 1 each PRN DAILY PRN MC SEE COMMENTS; Start 06/07/21 at 09:15; Status UNV Heparin Sodium/ Sodium Chloride (HEPARIN for ARTERIAL LINE FLUSH) 1,000 unit 1X ONCE IART Last administered on 06/07/21at 15:10; Start 06/07/21 at 14:45; Stop 06/07/21 at 14:46; Status DC Heparin Sodium/ Sodium Chloride (HEPARIN for ARTERIAL LINE FLUSH) 1,000 unit 1X ONCE IART Last administered on 06/07/21at 15:10; Start 06/07/21 at 14:45; Stop 06/07/21 at 14:46; Status DC Midazolam HCl (Versed) 2 mg 1X ONCE IV Last administered on 06/07/21at 15:18; Start 06/07/21 at 14:45; Stop 06/07/21 at 14:46; Status DC Fentanyl Citrate (Fentanyl 2ml Vial) 100 mcg 1X ONCE IV Last administered on 06/07/21at 15:28; Start 06/07/21 at 14:45; Stop 06/07/21 at 14:46; Status DC Iodixanol (Visipaque 320) 100 ml 1X ONCE IART Last administered on 06/07/21at 15:10; Start 06/07/21 at 14:45; Stop 06/07/21 at 14:46; Status DC Lidocaine HCl (Lidocaine 1% 20ml Vial) 20 ml 1X ONCE INJ Last administered on 06/07/21at 15:11; Start 06/07/21 at 14:45; Stop 06/07/21 at 14:46; Status DC Iodixanol (Visipaque 320) 100 ml STK-MED ONCE .ROUTE ; Start 06/07/21 at 11:49; Stop 06/08/21 at 13:36; Status DC Heparin Sodium/ Sodium Chloride 500 ml @ As Directed STK-MED ONCE .ROUTE ; Start 06/07/21 at 11:49; Stop 06/08/21 at 13:36; Status DC Lidocaine HCl (Lidocaine 1% 20ml Vial) 20 ml STK-MED ONCE .ROUTE ; Start 06/07/21 at 12:03; Stop 06/08/21 at 13:37; Status DC Heparin Sodium/ Sodium Chloride 1,000 ml @ As Directed STK-MED ONCE .ROUTE ; Start 06/07/21 at 12:03; Stop 06/08/21 at 13:37; Status DC Midazolam HCl (Versed) 2 mg STK-MED ONCE .ROUTE ; Start 06/07/21 at 14:14; Stop 06/08/21 at 13:38; Status DC Fentanyl Citrate (Fentanyl 2ml Vial) 100 mcg STK-MED ONCE .ROUTE ; Start 06/07/21 at 14:15; Stop 06/08/21 at 13:38; Status DC Heparin Sodium (Porcine) (Heparin Sodium) 10,000 unit STK-MED ONCE .ROUTE ; Start 06/07/21 at 14:15; Stop 06/08/21 at 13:38; Status DC Cefazolin Sodium 1 gm/Sodium Chloride 500 ml @ 500 mls/hr 1X ONCE IRR ; Start 06/09/21 at 06:00; Stop 06/09/21 at 07:00; Status DC Fentanyl Citrate (Fentanyl 2ml Vial) 25 mcg PRN Q5MIN PRN IVP MILD PAIN 1-3; Start 06/09/21 at 06:00; Stop 06/09/21 at 17:24; Status DC Fentanyl Citrate (Fentanyl 2ml Vial) 50 mcg PRN Q5MIN PRN IVP MODERATE PAIN 4- 6; Start 06/09/21 at 06:00; Stop 06/09/21 at 17:24; Status DC Morphine Sulfate (Morphine Sulfate) 1 mg PRN Q10MIN PRN IVP SEVERE PAIN 7-10; Start 06/09/21 at 06:00; Stop 06/09/21 at 17:24; Status DC Ringer's Solution 1,000 ml @ 30 mls/hr Q24H IV ; Start 06/09/21 at 06:00; Stop 06/09/21 at 17:24; Status DC Hydromorphone HCl (Dilaudid) 0.5 mg PRN Q10MIN PRN IVP SEVERE PAIN 7-10, 2nd CHOICE; Start 06/09/21 at 06:00; Stop 06/09/21 at 17:24; Status DC Prochlorperazine Edisylate (Compazine) 5 mg PACU PRN PRN IVP NAUSEA, MRX1; Start 06/09/21 at 06:00; Stop 06/09/21 at 17:25; Status DC Sodium Chloride 1,000 ml @ 1,000 mls/hr Q1H PRN IV hypotension; Start 06/09/21 at 07:45; Stop 06/09/21 at 13:44; Status DC Sodium Chloride 1,000 ml @ 400 mls/hr Q2H30M PRN IV PATENCY; Start 06/09/21 at 07:45; Stop 06/09/21 at 19:44; Status DC Info (PHARMACY MONITORING -- do not chart) 1 each PRN DAILY PRN MC SEE COMMENTS; Start 06/09/21 at 07:45; Stop 06/09/21 at 07:48; Status DC Info (PHARMACY MONITORING -- do not chart) 1 each PRN DAILY PRN MC SEE COMMENTS; Start 06/09/21 at 07:45; Status Cancel Sodium Chloride 1,000 ml @ 1,000 mls/hr Q1H PRN IV hypotension; Start 06/11/21 at 08:45; Stop 06/11/21 at 14:44; Status DC Sodium Chloride (Normal Saline Flush) 10 ml 1X PRN PRN IV AP catheter pack; Start 06/11/21 at 08:45; Stop 06/12/21 at 08:44; Status DC Sodium Chloride (Normal Saline Flush) 10 ml 1X PRN PRN IV SAUSAGE STUFFER catheter pack; Start 06/11/21 at 08:45; Stop 06/12/21 at 08:44; Status DC Info (PHARMACY MONITORING -- do not chart) 1 each PRN DAILY PRN MC SEE COMMENTS; Start 06/11/21 at 08:45; Status UNV Info (PHARMACY MONITORING -- do not chart) 1 each PRN DAILY PRN MC SEE COMMENTS; Start 06/11/21 at 08:45; Status Cancel Sodium Hypochlorite (Dakin'S 1/4 Strength) 1 lópez QODAY TP Last administered on 06/24/21at 08:59; Start 06/12/21 at 08:00 Vancomycin HCl (Vancomycin Random Level) 1 each 1X ONCE MC ; Start 06/14/21 at 06:00; Stop 06/14/21 at 06:01; Status DC Sodium Chloride 1,000 ml @ 1,000 mls/hr Q1H PRN IV hypotension; Start 06/14/21 at 08:00; Stop 06/14/21 at 13:59; Status DC Albumin Human 100 ml @ 200 mls/hr 1X PRN PRN IV Hypotension Last administered on 06/14/21at 10:45; Start 06/14/21 at 08:00; Stop 06/14/21 at 13:59; Status DC Sodium Chloride 1,000 ml @ 400 mls/hr Q2H30M PRN IV PATENCY; Start 06/14/21 at 08:00; Stop 06/14/21 at 19:59; Status DC Info (PHARMACY MONITORING -- do not chart) 1 each PRN DAILY PRN MC SEE COMMENTS; Start 06/14/21 at 08:00; Status UNV Info (PHARMACY MONITORING -- do not chart) 1 each PRN DAILY PRN MC SEE COMMENTS; Start 06/14/21 at 08:00; Status Cancel Cefazolin Sodium 1 gm/Sodium Chloride 500 ml @ 500 mls/hr 1X ONCE IRR Last administered on 06/15/21at 12:02; Start 06/15/21 at 06:00; Stop 06/15/21 at 07:00; Status DC Fentanyl Citrate (Fentanyl 2ml Vial) 25 mcg PRN Q5MIN PRN IVP MILD PAIN 1-3; Start 06/15/21 at 06:00; Stop 06/16/21 at 05:59; Status DC Fentanyl Citrate (Fentanyl 2ml Vial) 50 mcg PRN Q5MIN PRN IVP MODERATE PAIN 4-6 Last administered on 06/15/21at 13:25; Start 06/15/21 at 06:00; Stop 06/16/21 at 05:59; Status DC Morphine Sulfate (Morphine Sulfate) 1 mg PRN Q10MIN PRN IVP SEVERE PAIN 7-10; Start 06/15/21 at 06:00; Stop 06/16/21 at 05:59; Status DC Ringer's Solution 1,000 ml @ 30 mls/hr Q24H IV ; Start 06/15/21 at 06:00; Stop 06/15/21 at 17:59; Status DC Hydromorphone HCl (Dilaudid) 0.5 mg PRN Q10MIN PRN IVP SEVERE PAIN 7-10, 2nd CHOICE; Start 06/15/21 at 06:00; Stop 06/16/21 at 05:59; Status DC Prochlorperazine Edisylate (Compazine) 5 mg PACU PRN PRN IVP NAUSEA, MRX1; Start 06/15/21 at 06:00; Stop 06/16/21 at 05:59; Status DC Sodium Chloride 1,000 ml @ 30 mls/hr Q24H IV Last administered on 06/15/21at 10:00; Start 06/15/21 at 10:00; Stop 06/16/21 at 16:10; Status DC Oxycodone/ Acetaminophen (Percocet 5/325) 1 tab PRN Q4HRS PRN PO PAIN Last administered on 06/17/21at 11:56; Start 06/15/21 at 11:45 Hydromorphone HCl (Dilaudid) 0.2 mg PRN Q4HRS PRN IVP PAIN Last administered on 06/18/21at 12:31; Start 06/15/21 at 11:45 Oxycodone/ Acetaminophen (Percocet 5/325) 2 tab PRN Q4HRS PRN PO BREAKTHROUGH PAIN Last administered on 06/17/21at 21:22; Start 06/15/21 at 12:00 Vancomycin HCl (Vancomycin Random Level) 1 each 1X ONCE MC Last administered on 06/18/21at 05:00; Start 06/18/21 at 05:00; Stop 06/18/21 at 05:01; Status DC Sodium Chloride 1,000 ml @ 1,000 mls/hr Q1H PRN IV hypotension; Start 06/16/21 at 16:00; Stop 06/16/21 at 21:59; Status DC Sodium Chloride 1,000 ml @ 400 mls/hr Q2H30M PRN IV PATENCY; Start 06/16/21 at 16:00; Stop 06/17/21 at 03:59; Status DC Info (PHARMACY MONITORING -- do not chart) 1 each PRN DAILY PRN MC SEE COMMENTS; Start 06/16/21 at 16:00; Status Cancel Sodium Chloride 1,000 ml @ 1,000 mls/hr Q1H PRN IV hypotension; Start 06/16/21 at 18:30; Stop 06/17/21 at 00:29; Status DC Albumin Human 200 ml @ 200 mls/hr 1X PRN PRN IV Hypotension; Start 06/16/21 at 18:30; Stop 06/17/21 at 00:29; Status DC Sodium Chloride (Normal Saline Flush) 10 ml 1X PRN PRN IV AP catheter pack; Start 06/16/21 at 18:30; Stop 06/17/21 at 18:29; Status DC Sodium Chloride (Normal Saline Flush) 10 ml 1X PRN PRN IV SAUSAGE STUFFER catheter pack; Start 06/16/21 at 18:30; Stop 06/17/21 at 18:29; Status DC Sodium Chloride 1,000 ml @ 400 mls/hr Q2H30M PRN IV PATENCY; Start 06/16/21 at 18:30; Stop 06/17/21 at 06:29; Status DC Info (PHARMACY MONITORING -- do not chart) 1 each PRN DAILY PRN MC SEE COMMENTS; Start 06/16/21 at 18:30; Status UNV Info (PHARMACY MONITORING -- do not chart) 1 each PRN DAILY PRN MC SEE COMMENTS; Start 06/16/21 at 18:30; Stop 06/21/21 at 13:23; Status DC Midodrine (Proamatine) 2.5 mg [id number] PO Last administered on 06/23/21at 18:06; Start 06/17/21 at 18:00 Sodium Chloride 1,000 ml @ 1,000 mls/hr Q1H PRN IV hypotension; Start 06/18/21 at 08:00; Stop 06/18/21 at 13:59; Status DC Sodium Chloride 1,000 ml @ 400 mls/hr Q2H30M PRN IV PATENCY; Start 06/18/21 at 08:00; Stop 06/18/21 at 19:59; Status DC Info (PHARMACY MONITORING -- do not chart) 1 each PRN DAILY PRN MC SEE COMMENTS; Start 06/18/21 at 08:00; Status Cancel Propofol (Diprivan) 200 mg STK-MED ONCE IV ; Start 06/15/21 at 10:53; Stop 06/18/21 at 12:36; Status DC Lidocaine HCl (Xylocaine-Mpf 1% 5ml Vial) 5 ml STK-MED ONCE .ROUTE ; Start 06/15/21 at 10:53; Stop 06/18/21 at 12:36; Status DC Fentanyl Citrate (Fentanyl 2ml Vial) 100 mcg STK-MED ONCE .ROUTE ; Start 06/15/21 at 10:53; Stop 06/18/21 at 12:36; Status DC Ephedrine Sulfate (Akovaz) 50 mg STK-MED ONCE .ROUTE ; Start 06/15/21 at 12:18; Stop 06/18/21 at 12:36; Status DC Phenylephrine HCl (PHENYLEPHRINE in 0.9% NACL PF) 1 mg STK-MED ONCE IV ; Start 06/15/21 at 12:18; Stop 06/18/21 at 12:36; Status DC Glycopyrrolate (Robinul) 1 mg STK-MED ONCE .ROUTE ; Start 06/15/21 at 12:38; Stop 06/18/21 at 12:36; Status DC Fentanyl Citrate (Fentanyl 2ml Vial) 100 mcg STK-MED ONCE .ROUTE ; Start 06/15/21 at 13:22; Stop 06/18/21 at 12:36; Status DC Vancomycin HCl (Vancomycin Random Level) 1 each 1X ONCE MC ; Start 06/21/21 at 06:00; Stop 06/19/21 at 12:13; Status DC Sodium Chloride 1,000 ml @ 1,000 mls/hr Q1H PRN IV hypotension; Start 06/21/21 at 08:00; Stop 06/21/21 at 13:59; Status DC Albumin Human 200 ml @ 200 mls/hr 1X PRN PRN IV Hypotension; Start 06/21/21 at 08:00; Stop 06/21/21 at 13:59; Status DC Sodium Chloride (Normal Saline Flush) 10 ml 1X PRN PRN IV AP catheter pack; Start 06/21/21 at 08:00; Stop 06/22/21 at 07:59; Status DC Sodium Chloride (Normal Saline Flush) 10 ml 1X PRN PRN IV SAUSAGE STUFFER catheter pack; Start 06/21/21 at 08:00; Stop 06/22/21 at 07:59; Status DC Sodium Chloride 1,000 ml @ 400 mls/hr Q2H30M PRN IV PATENCY; Start 06/21/21 at 08:00; Stop 06/21/21 at 19:59; Status DC Info (PHARMACY MONITORING -- do not chart) 1 each PRN DAILY PRN MC SEE COMMENTS; Start 06/21/21 at 08:00; Status UNV Info (PHARMACY MONITORING -- do not chart) 1 each PRN DAILY PRN MC SEE COMMENTS; Start 06/21/21 at 08:00; Status Cancel Pregabalin (Lyrica) 150 mg BID PO Last administered on 06/24/21at 08:52; Start 06/22/21 at 21:00 Sodium Chloride 1,000 ml @ 1,000 mls/hr Q1H PRN IV hypotension; Start 06/23/21 at 08:30; Stop 06/23/21 at 14:29; Status DC Sodium Chloride 1,000 ml @ 400 mls/hr Q2H30M PRN IV PATENCY; Start 06/23/21 at 08:30; Stop 06/23/21 at 20:29; Status DC Info (PHARMACY MONITORING -- do not chart) 1 each PRN DAILY PRN MC SEE COMMENTS; Start 06/23/21 at 08:30 Multi-Ingredient Ointment (Hydrocerin, Eucerin Cream) 1 lópez BID TP Last administered on 06/24/21at 08:59; Start 06/23/21 at 11:00 Mupirocin (Bactroban) 1 lópez BID TP Last administered on 06/24/21at 08:59; Start 06/23/21 at 11:00 Active Scripts Active Metoprolol Succinate 50 Mg Tab.er.24h 50 Mg PO DAILY 30 Days Levetiracetam 500 Mg Tablet 500 Mg PO BID 30 Days Reported Trazodone Hcl 50 Mg Tablet 1 Tab PO QHS Xultophy 100 Unit-3.6 mg/ml (Insulin Degludec/Liraglutide) 3 Ml Insuln.pen 24 Ml SQ HS Vitamin D (Cholecalciferol (Vitamin D3)) 1,000 Unit Capsule 1 Cap PO DAILY Atorvastatin Calcium 10 Mg Tablet 10 Mg PO DAILY Sildenafil (Sildenafil Citrate) 20 Mg Tablet 20 Mg PO TID Zetia (Ezetimibe) 10 Mg Tablet 10 Mg PO DAILY Omeprazole 40 Mg Capsule. 40 Mg PO DAILY Topiramate 100 Mg Tablet 100 Mg PO BID Promethazine Hcl 25 Mg Tablet 25 Mg PO Q6H PRN B-12 (Cyanocobalamin (Vitamin B-12)) 1,000 Mcg Tablet 1,000 Mcg PO DAILY Vascepa (Icosapent Ethyl) 1 Gm Capsule 2 Cap PO BID Aspirin Ec (Aspirin) 81 Mg Tablet.dr 81 Mg PO DAILY Duloxetine Hcl 60 Mg Capsule.dr 60 Mg PO HS Lyrica (Pregabalin) 225 Mg Capsule 225 Mg PO BID Losartan-Hctz 100-25 Mg Tab (Losartan/Hydrochlorothiazide) 1 Each Tablet 25 Mg PO DAILY Mirtazapine 45 Mg Tablet 45 Mg PO HS Amlodipine Besylate 5 Mg Tablet 5 Mg PO DAILY Vitals/I & O Vital Sign - Last 24 Hours 06/23/21 06/23/21 06/23/21 06/23/21 13:30 13:36 14:17 18:06 Temp 98.7 98.7 Pulse 73 73 77 77 Resp 18 B/P (MAP) 140/77 140/77 122/62 (82) 122/62 Pulse Ox 99 O2 Delivery Room Air 06/23/21 06/23/21 06/23/21 06/24/21 19:00 20:15 23:00 03:00 Temp 98.1 98.4 97.9 98.1 98.4 97.9 Pulse 79 82 76 Resp 18 18 20 B/P (MAP) 106/60 (75) 119/69 (86) 121/70 (87) Pulse Ox 99 98 99 O2 Delivery Room Air Room Air Room Air Room Air 06/24/21 06/24/21 06/24/21 06:19 06:20 08:52 Temp 97.5 97.5 Pulse 74 74 74 Resp 18 B/P (MAP) 134/78 134/78 (96) 134/78 Pulse Ox 98 O2 Delivery Room Air Intake and Output 06/23/21 06/23/21 06/24/21 15:00 23:00 07:00 Intake Total 240 ml 240 ml 0 ml Balance 240 ml 240 ml 0 ml TAMRA ABRAHAM MD Jun 24, 2021 09:41
--- NOTE | 2021-06-24 10:15 | NUR ---
Wound Care Wound Type/Assessment: Patient seen per wound care follow up. See wound assessment. L knee proximal and distal abrasions improved, wounds cleansed and assessed. L BKA well approximated with gopi, no drainage, cleansed with chloroprep and left open to air. Coccyx wound is significantly smaller and redness has almost resolved. Wound cleansed and assessed. Treatment Recommendations/Plan: Recommendations for skin prep and foam dressing to the left proximal wound, skin prep and leave open to air the left distal knee, and skin prep and foam dressing to the coccyx. Dressings applied and the Rooke boot applied to the L BKA. No other wounds noted upon complete head to toe assessment. Offloading surface/device: n/a Recommended Referrals/Tests: No new consults at this time. Discharge Recommendations for dressings: Dressing change instructions left in room. wound care will follow up on 06/30/21.
--- NOTE | 2021-06-24 10:25 | PDOC ---
Provider Note Date of Service: DATE: 06/24/21 TIME: 10:17 Provider Note Provider Note Vascular S: Present patient resting in bed without complaints O: Awake and alert Right stump incision dry and intact. Right arm with IV in antecubital. No additional ecchymosis or swelling. A/P: 1. Chronic renal failure, on hemodialysis. 2. Diabetes. 3. Peripheral arterial disease. 4. Nonhealing left foot wound. POD#9 Left BKA, doing well. -continue rooke boot protector, can leave incision open to air -PT/OT -SS for discharge planning -Patient is in need of long-term access for dialysis. Vein mapping reviewed patient has adequate basilic vein for AVF versus AVS. Will remove IV from right arm and continue protective measures. Will schedule in the near future. Venous mapping FINDINGS: The right cephalic vein is thrombosed at the level of the antecubital fossa. There are patent small caliber pleural basilic veins with the forearms. The left cephalic vein is thrombosed within the forearm and there is a thrombosed AV fistula at the left antecubital fossa. The right cephalic vein measures 2.1 mm within the proximal upper arm, 2.5 mm within the mid upper arm, 2.9 mm within the distal upper arm, is thrombosed at the antecubital fossa, measures 1.1 mm within the proximal forearm, 1.1 mm within the mid forearm and 1.1 mm within the distal forearm. The right basilic vein measures 5.0 mm within the proximal upper arm, 3.3 mm within the mid upper arm, 0.9 mm within the distal upper arm, 1.1 mm within the proximal forearm, 1.0 mm within the mid forearm and 1.2 mm within the distal forearm. The left cephalic vein measures 3.0 mm within the proximal upper arm, is obscured and the mid upper arm is thrombosed within the distal upper arm, the level of an AV fistula within the antecubital fossa and within the forearm. The left basilic vein measures 4.0 mm within the proximal upper arm, 3.4 mm within the mid upper arm, 3.8 mm within the distal upper arm, 1.5 mm within the proximal forearm, 1.0 mm within the mid forearm and 1.1 mm within the distal forearm. Justicifation of Admission Dx: Justifications for Admission: Justification of Admission Dx: N/A JALYN HUNT APRN Jun 24, 2021 10:24
[2021-06-24 11:00] VITALS: BP 113/64
--- NOTE | 2021-06-24 11:09 | PDOC ---
Renal-Progress Notes Subjective Notes Notes NO NEW COMPLAINTS History of Present Illness Hx of present illness STABLE Vitals Vitals Vital Signs Date Time Temp Pulse Resp B/P (MAP) Pulse Ox O2 Delivery O2 Flow Rate FiO2 06/24/21 08:52 74 134/78 06/24/21 08:13 Room Air 2.0 06/24/21 06:20 97.5 18 98 97.5 Weight Weight [ ] I.O. Intake and Output Intake and Output 06/24/21 07:00 Intake Total 480 ml Balance 480 ml Intake Oral 480 ml Labs Labs Laboratory Tests Test 06/23/21 16:22 06/23/21 19:55 06/24/21 06:00 06/24/21 07:25 Glucose (Fingerstick) 178 mg/dL (70-99) 218 mg/dL (70-99) 215 mg/dL (70-99) Hemoglobin 10.6 g/dL (13.0-17.5) Micro Micro Microbiology 05/28/21 Gram Stain - Final, Complete 05/28/21 Aerobic and Anaerobic Culture - Final, Complete 05/28/21 Antimicrobic Susceptibility - Final, Complete 05/26/21 Blood Culture - Final, Complete NO GROWTH AFTER 5 DAYS Review of Systems Constitutional: yes: weakness, alert, oriented, other Ears/Nose/Throat: Yes: no symptom reported Eyes: Yes: no symptom reported Pulmonary: Yes no symptom reported Cardiovascular: Yes no symptom reported Gastrointestional: Yes: constipation Genitourinary: Yes: no symptom reported Musculoskeletal: Yes: leg pain, foot pain Skin: Yes no symptom reported Psychiatric/Neurological: Yes: depressed Endocrine: Yes: no symptom reported Hematologic/Lymphatic: Yes: no symptom reported Physical Exam General Appearance: no apparent distress Skin: warm Respiratory: decreased breath sounds Heart: S1S2 Abdomen: soft, bowel sounds present Genitourinary: bladder flat Neurology: alert, oriented, follow commands Assessment Assessment IMP ESRD-MWF ANEMIA DM II-LABILE BG ENCEPHALOPATHY-RESOLVED HTN HX LEFT TMA STUMP WOUND PROB SEPSIS HYPOTENSION-CORRECTED MALNUTRITION CARDIAC ARRHYTHMIA S/P L BKA PLAN HD TOMORROW CONT MIDODRINE VINNIE NEEDED WOUND CARE AWAITING TRANSFER TO [facility] WILL FOLLOW NUBIA PATTON MD Jun 24, 2021 11:09
--- NOTE | 2021-06-24 11:22 | PDOC ---
TEJAL GUO REPEATER CHIEF 06/24/21 1121: CARDIO Progress Notes Date and Time Date of Service 06/24/2021 Time of Evaluation 1030 Subjective Subjective: No Chest Pain, No shortness of breath, No Palpitations Vitals Vitals Vital Signs Date Time Temp Pulse Resp B/P (MAP) Pulse Ox O2 Delivery O2 Flow Rate FiO2 06/24/21 08:52 74 134/78 06/24/21 08:13 Room Air 2.0 06/24/21 06:20 97.5 18 98 97.5 Weight Weight [ ] Input and Output Intake and Output Intake and Output 06/24/21 07:00 Intake Total 480 ml Balance 480 ml Intake Oral 480 ml Laboratory Labs Laboratory Tests Test 06/23/21 16:22 06/23/21 19:55 06/24/21 06:00 06/24/21 07:25 Glucose (Fingerstick) 178 mg/dL (70-99) 218 mg/dL (70-99) 215 mg/dL (70-99) Hemoglobin 10.6 g/dL (13.0-17.5) Test 06/24/21 11:13 Glucose (Fingerstick) 90 mg/dL (70-99) Microbiology Micro Microbiology 05/28/21 Gram Stain - Final, Complete 05/28/21 Aerobic and Anaerobic Culture - Final, Complete 05/28/21 Antimicrobic Susceptibility - Final, Complete 05/26/21 Blood Culture - Final, Complete NO GROWTH AFTER 5 DAYS Review of Systems Constitutional: yes: weakness, alert, oriented, other Ears/Nose/Throat: Yes: no symptom reported Eyes: Yes: no symptom reported Pulmonary: Yes no symptom reported Cardiovascular: Yes no symptom reported Gastrointestional: Yes: constipation Genitourinary: Yes: no symptom reported Musculoskeletal: Yes: leg pain, foot pain Skin: Yes no symptom reported Psychiatric/Neurological: Yes: depressed Endocrine: Yes: no symptom reported Hematologic/Lymphatic: Yes: no symptom reported Physical Exam HEENT: Neck Supple W Full Motion Chest: Symmetric LUNGS: Other (diminished bases ) Heart: RRR (atrial flutter 3:1) Abdomen: Soft N/T Extremities: Other (LBKA) Neurology: alert, oriented, follow commands Assessment Assessment 1. COVID +: off quarantine, doing well 2. Acute encephalopathy: resolved 3. ESRD on HD 4. PAFIB: rate controlled in atrial flutter. stable 5. CAD: s/p CABG. unclear if any recent w/u, clinically stable 6. HTN; controlled overall 7. DM2 8. S/P LBKA 9. Anemia: s/p transfusion. hgb stable. 11.3 10. Sepsis 11. Hx of mild CM: Limited echo with EF 30-35% 12. Mild to moderate , moderate to severe TR. Estimated PAP 60 mmHg. 13. Severe LLE PAD: Abdominal aortogram revealed no significant aortoiliac disease bilaterally and moderate diffuse 50 to 60% stenosis involving the SFA with one-vessel runoff bilaterally. Recommendations Continued metoprolol for rate control Poor candidate for anticoagulation with anemia and prior hx of SDH. Continue baby ASA for stroke prevention Secondary prevention measures Fluid offloading via HD today Supportive care. Outpt ischemic workup if none recent Justicifation of Admission Dx: Justifications for Admission: Justification of Admission Dx: N/A CARRIE MCCLAIN MD 06/24/21 1621: CARDIO Progress Notes Plan Plan The patient was seen and interviewed as well as examined at the bedside. The chart was reviewed. The case was discussed. Agree with the plan of care. TEJAL GUO APRN Jun 24, 2021 11:21 CARRIE MCCLAIN MD Jun 24, 2021 16:21
--- NOTE | 2021-06-24 11:55 | PN ---
DATE: 06/24/2021 SUBJECTIVE: The patient is resting, slightly propped up in bed, in no apparent distress, awake, alert. On questioning him, he denied any complaint, he particularly denied any pain, chills, rigors or fever. Denied any shortness of breath. PHYSICAL EXAMINATION: GENERAL: When I examined him, he was pale, somewhat cachectic, but not jaundiced or cyanosed, no lymphadenopathy, no thyromegaly, no jugular venous distention. No limb edema. VITAL SIGNS: His heart rate was 74, blood pressure is 134/78, temperature was 97.5, respiratory rate was 18 and oxygen saturation was 98% on room air. HEAD, EYES, EARS, NOSE AND THROAT: Normocephalic, atraumatic. NECK: Supple. HEART: Showed normal first and second heart sounds. No gallop, rub or murmur. CHEST: Clear to auscultation, no crepitation or rhonchi. ABDOMEN: Scaphoid, soft, nontender. NEUROLOGIC: He was grossly intact. SKIN: His right stump incision is dry and intact. The gopi are still in place. There is no redness, tenderness or discharge. His left lower extremity continues to be in a protector. The patient underwent venous mapping and apparently the right cephalic vein measures 2.1 mm within the proximal upper arm and 2.5 cm within the mid upper arm and 2.9 mm within the distal upper arm, there is thrombosis at the antecubital fossa measuring 1.1 mm within the proximal forearm and the plan apparently is for him to have an arteriovenous fistula in the near future. His hemoglobin is 10.6. His chemistry is variable as he is hemodialysis dependent. His blood sugar seemed to be reasonably controlled. ASSESSMENT: 1. Severe peripheral arterial disease, status post right below-knee amputation. 2. The patient has asymptomatic COVID-19 infection. He is now off of the quarantine. 3. The patient has end-stage renal disease, on hemodialysis Monday, Monday, Monday. 4. Type 2 diabetes mellitus with multiple complications. 5. Atrial fibrillation, rate controlled, not anticoagulated. 6. Coronary artery disease status post coronary artery bypass graft surgery. 7. Ischemic cardiomyopathy. 8. Hypertension. 9. Cerebrovascular accident. 10. Peripheral neuropathy. 11. History of chronic subdural hematoma that apparently has resolved. 12. Seizure disorder. 13. Peripheral arterial disease, status post right below-knee amputation. 14. Metabolic encephalopathy that has resolved. PLAN: To continue with wound care. Continue with hemodialysis. Continue with pain management. Continue with midodrine for hypotension. Continue with Keppra for seizure disorder. Continue with Epogen for anemia of chronic kidney disease. Continue to monitor his blood sugar and adjust insulin as needed. Continue with DVT and GI prophylaxis. Continue with physical and occupational therapy. Await insurance approval for him to be discharged to [facility]. CATHY DR: Tyler TID: [id number]
--- NOTE | 2021-06-24 13:10 | NUR ---
SW following. Discussed with RN, MARIANO followed up with [facility] - still pending insurance auth. MARIANO spoke with pt's mother, Emma - she is still aware and understanding if insurance denies pt will have to return home. SW will continue to follow.
[2021-06-24 15:00] VITALS: BP 119/64
[2021-06-24 19:00] VITALS: BP 103/58
[2021-06-24] MEDS: DULoxetine HCL 30 MG CAPSULE.DR PO SCH (20:37)
[2021-06-24] MEDS: MIRTAZAPINE 15 MG TABLET PO SCH (20:37)
[2021-06-24] MEDS: traZODone 50 MG TABLET. PO SCH (20:37)
[2021-06-24] MEDS: oxyCODONE/APAP 5/325 1 TAB TABLET PO PRN (20:41)
[2021-06-24 23:00] VITALS: BP 113/72
[2021-06-25 03:00] VITALS: BP 93/49
[2021-06-25 06:24] VITALS: BP 102/59
[2021-06-25] MEDS ORDERED: IV NORMAL SALINE 1000ML BAG 1,000 ML IV PRN (08:00)
[2021-06-25] MEDS: INSULIN LISPRO 300 UNITS/3 ML VIAL. SQ SCH ×3 (08:00→18:15)
[2021-06-25] MEDS ORDERED: 0.9 % SODIUM CHLORIDE 10 ML DISP.SYRIN. IV PRN ×2 (08:00)
[2021-06-25] MEDS: MIDODRINE 2.5 MG TABLET PO SCH ×3 (08:20→18:00)
[2021-06-25] MEDS: MUPIROCIN 2 % OINTMENT 22GM TUBE. TP SCH ×2 (09:00→22:06)
[2021-06-25] MEDS: MINERAL OIL/PETROLATUM TOPICAL CREAM 113GM JAR. TP SCH ×2 (09:00→22:06)
--- NOTE | 2021-06-25 09:25 | PN ---
PROGRESS NOTES Date of Service DATE: 06/25/21 TIME: 09:22 Subjective Subjective No new complaints. Objective Objective Vital Signs Date Time Temp Pulse Resp B/P (MAP) Pulse Ox O2 Delivery O2 Flow Rate FiO2 06/25/21 08:20 55 102/59 06/25/21 06:24 97.4 16 98 Room Air 97.4 06/24/21 08:13 2.0 Intake and Output 06/25/21 07:00 Intake Total 300 ml Balance 300 ml Intake Oral 300 ml # Bowel Movements 1 Physical Exam Physical Exam He is resting supine on dialysis bed and had dressing to left BK stump. Diagnosis PROBLEM LIST Problems Medical Problems: (1) Altered mental status Status: Acute (2) COVID-19 Status: Acute (3) Draining postoperative wound Status: Acute (4) ESRD (end stage renal disease) on dialysis Status: Acute (5) Severe anemia Status: Acute Assessment Assessment Problems Medical Problems: (1) Altered mental status Status: Acute (2) COVID-19 Status: Acute (3) Draining postoperative wound Status: Acute (4) ESRD (end stage renal disease) on dialysis Status: Acute (5) Severe anemia Status: Acute Plan Plan of Care To continue present rehab efforts as tolerated. Comment Review of Relevant I have reviewed the following items yifan (where applicable) has been applied. Labs Laboratory Tests Test 06/23/21 16:22 06/23/21 19:55 06/24/21 06:00 06/24/21 07:25 Glucose (Fingerstick) 178 mg/dL (70-99) 218 mg/dL (70-99) 215 mg/dL (70-99) Hemoglobin 10.6 g/dL (13.0-17.5) Test 06/24/21 11:13 06/24/21 16:40 06/24/21 19:25 06/25/21 07:56 Glucose (Fingerstick) 90 mg/dL (70-99) 97 mg/dL (70-99) 146 mg/dL (70-99) 174 mg/dL (70-99) Laboratory Tests Test 06/24/21 11:13 06/24/21 16:40 06/24/21 19:25 06/25/21 07:56 Glucose (Fingerstick) 90 mg/dL (70-99) 97 mg/dL (70-99) 146 mg/dL (70-99) 174 mg/dL (70-99) Microbiology 05/28/21 Gram Stain - Final, Complete 05/28/21 Aerobic and Anaerobic Culture - Final, Complete 05/28/21 Antimicrobic Susceptibility - Final, Complete 05/26/21 Blood Culture - Final, Complete NO GROWTH AFTER 5 DAYS Medications Current Medications Sodium Chloride 1,000 ml @ 1,000 mls/hr 1X ONCE IV ; Start 05/26/21 at 01:30; Stop 05/26/21 at 02:29; Status DC Piperacillin Sod/ Tazobactam Sod (Zosyn Per Pharmacy) 1 each PRN DAILY PRN MC SEE COMMENTS; Start 05/26/21 at 01:30; Status Cancel Piperacillin Sod/ Tazobactam Sod 3.375 gm/Sodium Chloride 50 ml @ 100 mls/hr 1X ONCE IV Last administered on 05/26/21at 03:25; Start 05/26/21 at 02:15; Stop 05/26/21 at 02:44; Status DC Vancomycin HCl (Vanco Per Pharmacy) 1 each PRN DAILY PRN MC SEE COMMENTS Last administered on 06/18/21at 13:56; Start 05/26/21 at 03:15; Stop 06/19/21 at 12:13; Status DC Sodium Chloride 500 ml @ 500 mls/hr 1X ONCE IV Last administered on 05/26/21at 03:25; Start 05/26/21 at 03:30; Stop 05/26/21 at 04:29; Status DC Ondansetron HCl (Zofran) 4 mg PRN Q8HRS PRN IVP NAUSEA/VOMITING; Start 05/26/21 at 03:30; Stop 05/27/21 at 03:29; Status DC Acetaminophen (Tylenol) 650 mg PRN Q4HRS PRN PO FEVER > 100.3'F; Start 05/26/21 at 03:30; Stop 05/27/21 at 03:29; Status DC Insulin Human Lispro (HumaLOG) 0-5 UNITS TIDWMEALS SQ Last administered on 05/26/21at 09:09; Start 05/26/21 at 08:00; Stop 05/26/21 at 12:46; Status DC Dextrose (Dextrose 50%-Water Syringe) 12.5 gm PRN Q15MIN PRN IV SEE COMMENTS; Start 05/26/21 at 03:30; Status Cancel Vancomycin HCl 1.75 gm/Sodium Chloride 500 ml @ 250 mls/hr 1X ONCE IV Last administered on 05/26/21at 05:47; Start 05/26/21 at 06:00; Stop 05/26/21 at 07:59; Status DC Piperacillin Sod/ Tazobactam Sod 2.25 gm/Sodium Chloride 50 ml @ 100 mls/hr Q8HRS IV Last administered on 06/02/21at 05:35; Start 05/26/21 at 08:00; Stop 06/02/21 at 08:27; Status DC Sodium Hypochlorite (Dakin'S / Strength) 1 lópez BID TP Last administered on 06/09/21at 20:23; Start 05/26/21 at 11:00; Stop 06/11/21 at 10:19; Status DC Aspirin (Ecotrin) 81 mg DAILY PO Last administered on 06/24/21at 08:50; Start 05/26/21 at 14:00 Atorvastatin Calcium (Lipitor) 10 mg DAILY PO Last administered on 06/24/21at 08:51; Start 05/26/21 at 14:00 Cyanocobalamin (Vitamin B-12) 1,000 mcg DAILY PO Last administered on 06/24/21 08:51; Start 05/27/21 at 09:00 EZETIMIBE (Zetia) 10 mg DAILY PO Last administered on 06/24/21at 08:51; Start 05/26/21 at 14:00 Topiramate (Topamax) 100 mg BID PO Last administered on 06/24/21at 20:37; Start 05/26/21 at 14:00 Trazodone HCl (Desyrel) 50 mg QHS PO Last administered on 06/24/21 20:37; Start 05/26/21 at 21:00 Vitamin D (Vitamin D3) 1,000 unit DAILY PO Last administered on 06/24/21 08:51; Start 05/26/21 at 14:00 Duloxetine HCl (Cymbalta) 60 mg HS PO Last administered on 06/24/21at 20:37; Start 05/26/21 at 21:00 Non-Formulary Medication (Icosapent Ethyl (Vascepa)) 2 cap BID PO ; Start 05/26/21 at 21:00; Status UNV Mirtazapine (Remeron) 45 mg QHS PO Last administered on 06/24/21at 20:37; Start 05/26/21 at 21:00 Pantoprazole Sodium (Protonix) 40 mg DAILYAC PO Last administered on 06/24/21 08:52; Start 05/26/21 at 14:00 Pregabalin (Lyrica) 225 mg BID PO Last administered on 06/22/21at 08:53; Start 05/26/21 at 14:00; Stop 06/22/21 at 09:38; Status DC Promethazine HCl (Phenergan) 25 mg PRN Q6HRS PRN PO NAUSEA/VOMITING Last administered on 06/17/21 21:21; Start 05/26/21 at 13:00 Levetiracetam 100 ml @ 400 mls/hr Q12HR IV ; Start 05/26/21 at 21:00; Status UNV Insulin Human Lispro (HumaLOG) 0-5 UNITS TIDWMEALS SQ Last administered on 06/24/21at 08:55; Start 05/26/21 at 17:00 Dextrose (Dextrose 50%-Water Syringe) 12.5 gm PRN Q15MIN PRN IV SEE COMMENTS; Start 05/26/21 at 12:45 Levetiracetam (Keppra) 500 mg BID PO ; Start 05/26/21 at 14:00; Status Cancel Lactobacillus Rhamnosus (Culturelle) 1 cap BID PO Last administered on 06/24/21at 20:37; Start 05/26/21 at 21:00 Levetiracetam 100 ml @ 400 mls/hr Q12HR IV Last administered on 05/29/21at 21:38; Start 05/26/21 at 14:00; Stop 05/29/21 at 23:00; Status DC Epoetin Catalino-epbx (RETACRIT for ESRD PTS) 10,000 unit MoWeFr@2100 SQ Last administered on 06/23/21at 21:52; Start 05/26/21 at 21:00 Vancomycin HCl (Vancomycin Random Level) 1 each 1X ONCE MC Last administered on 05/27/21at 05:00; Start 05/27/21 at 05:00; Stop 05/27/21 at 05:01; Status DC Info (PHARMACY MONITORING -- do not chart) 1 each PRN DAILY PRN MC SEE COMMENTS; Start 05/26/21 at 18:30; Status Cancel Vancomycin HCl (Vancomycin Random Level) 1 each 1X ONCE MC Last administered on 05/29/21at 06:00; Start 05/29/21 at 06:00; Stop 05/29/21 at 06:01; Status DC Sodium Chloride 1,000 ml @ 1,000 mls/hr Q1H PRN IV hypotension; Start 05/28/21 at 11:45; Stop 05/28/21 at 17:44; Status DC Sodium Chloride (Normal Saline Flush) 10 ml 1X PRN PRN IV AP catheter pack; Start 05/28/21 at 11:45; Stop 05/29/21 at 11:44; Status DC Sodium Chloride (Normal Saline Flush) 10 ml 1X PRN PRN IV CONTENT MANAGEMENT CONSULTANT catheter pack; Start 05/28/21 at 11:45; Stop 05/29/21 at 11:44; Status DC Sodium Chloride 1,000 ml @ 400 mls/hr Q2H30M PRN IV PATENCY; Start 05/28/21 at 11:45; Stop 05/28/21 at 23:44; Status DC Info (PHARMACY MONITORING -- do not chart) 1 each PRN DAILY PRN MC SEE COMMENTS; Start 05/28/21 at 11:45; Status UNV Info (PHARMACY MONITORING -- do not chart) 1 each PRN DAILY PRN MC SEE COMMENTS; Start 05/28/21 at 11:45; Status UNV Metoprolol Succinate (Toprol Xl) 50 mg DAILY PO Last administered on 06/24/21at 08:52; Start 05/28/21 at 14:00 Vancomycin HCl (Vancomycin Random Level) 1 each 1X ONCE MC Last administered on 06/02/21at 06:00; Start 06/02/21 at 06:00; Stop 06/02/21 at 06:01; Status DC Levetiracetam (Keppra) 500 mg BID PO Last administered on 06/24/21at 20:37; Start 05/30/21 at 09:00 Perflutren Protein Type A Microsphe (Optison) 0.66 mg 1X ONCE IV ; Start 05/31/21 at 08:15; Stop 05/31/21 at 08:16; Status DC Sodium Chloride 1,000 ml @ 1,000 mls/hr Q1H PRN IV hypotension; Start 05/31/21 at 10:15; Stop 05/31/21 at 16:14; Status DC Albumin Human 200 ml @ 200 mls/hr 1X PRN PRN IV Hypotension; Start 05/31/21 at 10:15; Stop 05/31/21 at 16:14; Status DC Sodium Chloride 1,000 ml @ 400 mls/hr Q2H30M PRN IV PATENCY; Start 05/31/21 at 10:15; Stop 05/31/21 at 22:14; Status DC Info (PHARMACY MONITORING -- do not chart) 1 each PRN DAILY PRN MC SEE COMMENTS; Start 05/31/21 at 10:15; Status Cancel Meropenem 500 mg/ Sodium Chloride 50 ml @ 100 mls/hr DAILY IV Last administered on 06/19/21at 09:52; Start 06/02/21 at 09:00; Stop 06/19/21 at 22:00; Status DC Fluconazole (Diflucan) 200 mg DAILY PO Last administered on 06/20/21at 09:23; Start 06/02/21 at 09:00; Stop 06/21/21 at 13:24; Status DC Vancomycin HCl 500 mg/Sodium Chloride 100 ml @ 100 mls/hr QMWF IV Last administered on 06/11/21at 14:47; Start 06/04/21 at 16:00; Stop 06/14/21 at 12:18; Status DC Sodium Chloride 1,000 ml @ 1,000 mls/hr Q1H PRN IV hypotension; Start 06/02/21 at 14:15; Stop 06/02/21 at 20:14; Status DC Albumin Human 100 ml @ 200 mls/hr 1X PRN PRN IV Hypotension Last administered on 06/02/21at 15:00; Start 06/02/21 at 14:15; Stop 06/02/21 at 20:14; Status DC Sodium Chloride 1,000 ml @ 400 mls/hr Q2H30M PRN IV PATENCY; Start 06/02/21 at 14:15; Stop 06/03/21 at 02:14; Status DC Info (PHARMACY MONITORING -- do not chart) 1 each PRN DAILY PRN MC SEE COMMENTS; Start 06/02/21 at 14:15; Status Cancel Info (PHARMACY MONITORING -- do not chart) 1 each PRN DAILY PRN MC SEE COMMENTS; Start 06/02/21 at 14:15; Status Cancel Sodium Chloride 1,000 ml @ 1,000 mls/hr Q1H PRN IV hypotension; Start 06/04/21 at 08:15; Stop 06/04/21 at 14:14; Status DC Albumin Human 200 ml @ 200 mls/hr 1X PRN PRN IV Hypotension; Start 06/04/21 at 08:15; Stop 06/04/21 at 14:14; Status DC Sodium Chloride (Normal Saline Flush) 10 ml 1X PRN PRN IV AP catheter pack; Start 06/04/21 at 08:15; Stop 06/05/21 at 08:14; Status DC Sodium Chloride (Normal Saline Flush) 10 ml 1X PRN PRN IV CONTENT MANAGEMENT CONSULTANT catheter pack; Start 06/04/21 at 08:15; Stop 06/05/21 at 08:14; Status DC Sodium Chloride 1,000 ml @ 400 mls/hr Q2H30M PRN IV PATENCY; Start 06/04/21 at 08:15; Stop 06/04/21 at 20:14; Status DC Info (PHARMACY MONITORING -- do not chart) 1 each PRN DAILY PRN MC SEE COMMENTS; Start 06/04/21 at 08:15; Status UNV Info (PHARMACY MONITORING -- do not chart) 1 each PRN DAILY PRN MC SEE COMMENTS; Start 06/04/21 at 08:15; Stop 06/09/21 at 07:47; Status DC Sodium Chloride 1,000 ml @ 1,000 mls/hr Q1H PRN IV hypotension; Start 06/07/21 at 09:15; Stop 06/07/21 at 15:14; Status DC Albumin Human 200 ml @ 200 mls/hr 1X PRN PRN IV Hypotension; Start 06/07/21 at 09:15; Stop 06/07/21 at 15:14; Status DC Sodium Chloride 1,000 ml @ 400 mls/hr Q2H30M PRN IV PATENCY; Start 06/07/21 at 09:15; Stop 06/07/21 at 21:14; Status DC Info (PHARMACY MONITORING -- do not chart) 1 each PRN DAILY PRN MC SEE COMMENTS; Start 06/07/21 at 09:15; Status UNV Heparin Sodium/ Sodium Chloride (HEPARIN for ARTERIAL LINE FLUSH) 1,000 unit 1X ONCE IART Last administered on 06/07/21at 15:10; Start 06/07/21 at 14:45; Stop 06/07/21 at 14:46; Status DC Heparin Sodium/ Sodium Chloride (HEPARIN for ARTERIAL LINE FLUSH) 1,000 unit 1X ONCE IART Last administered on 06/07/21at 15:10; Start 06/07/21 at 14:45; Stop 06/07/21 at 14:46; Status DC Midazolam HCl (Versed) 2 mg 1X ONCE IV Last administered on 06/07/21at 15:18; Start 06/07/21 at 14:45; Stop 06/07/21 at 14:46; Status DC Fentanyl Citrate (Fentanyl 2ml Vial) 100 mcg 1X ONCE IV Last administered on 06/07/21at 15:28; Start 06/07/21 at 14:45; Stop 06/07/21 at 14:46; Status DC Iodixanol (Visipaque 320) 100 ml 1X ONCE IART Last administered on 06/07/21at 15:10; Start 06/07/21 at 14:45; Stop 06/07/21 at 14:46; Status DC Lidocaine HCl (Lidocaine 1% 20ml Vial) 20 ml 1X ONCE INJ Last administered on 06/07/21at 15:11; Start 06/07/21 at 14:45; Stop 06/07/21 at 14:46; Status DC Iodixanol (Visipaque 320) 100 ml STK-MED ONCE .ROUTE ; Start 06/07/21 at 11:49; Stop 06/08/21 at 13:36; Status DC Heparin Sodium/ Sodium Chloride 500 ml @ As Directed STK-MED ONCE .ROUTE ; Start 06/07/21 at 11:49; Stop 06/08/21 at 13:36; Status DC Lidocaine HCl (Lidocaine 1% 20ml Vial) 20 ml STK-MED ONCE .ROUTE ; Start 06/07/21 at 12:03; Stop 06/08/21 at 13:37; Status DC Heparin Sodium/ Sodium Chloride 1,000 ml @ As Directed STK-MED ONCE .ROUTE ; Start 06/07/21 at 12:03; Stop 06/08/21 at 13:37; Status DC Midazolam HCl (Versed) 2 mg STK-MED ONCE .ROUTE ; Start 06/07/21 at 14:14; Stop 06/08/21 at 13:38; Status DC Fentanyl Citrate (Fentanyl 2ml Vial) 100 mcg STK-MED ONCE .ROUTE ; Start 06/07/21 at 14:15; Stop 06/08/21 at 13:38; Status DC Heparin Sodium (Porcine) (Heparin Sodium) 10,000 unit STK-MED ONCE .ROUTE ; Start 06/07/21 at 14:15; Stop 06/08/21 at 13:38; Status DC Cefazolin Sodium 1 gm/Sodium Chloride 500 ml @ 500 mls/hr 1X ONCE IRR ; Start 06/09/21 at 06:00; Stop 06/09/21 at 07:00; Status DC Fentanyl Citrate (Fentanyl 2ml Vial) 25 mcg PRN Q5MIN PRN IVP MILD PAIN 1-3; Start 06/09/21 at 06:00; Stop 06/09/21 at 17:24; Status DC Fentanyl Citrate (Fentanyl 2ml Vial) 50 mcg PRN Q5MIN PRN IVP MODERATE PAIN 4- 6; Start 06/09/21 at 06:00; Stop 06/09/21 at 17:24; Status DC Morphine Sulfate (Morphine Sulfate) 1 mg PRN Q10MIN PRN IVP SEVERE PAIN 7-10; Start 06/09/21 at 06:00; Stop 06/09/21 at 17:24; Status DC Ringer's Solution 1,000 ml @ 30 mls/hr Q24H IV ; Start 06/09/21 at 06:00; Stop 06/09/21 at 17:24; Status DC Hydromorphone HCl (Dilaudid) 0.5 mg PRN Q10MIN PRN IVP SEVERE PAIN 7-10, 2nd CHOICE; Start 06/09/21 at 06:00; Stop 06/09/21 at 17:24; Status DC Prochlorperazine Edisylate (Compazine) 5 mg PACU PRN PRN IVP NAUSEA, MRX1; Start 06/09/21 at 06:00; Stop 06/09/21 at 17:25; Status DC Sodium Chloride 1,000 ml @ 1,000 mls/hr Q1H PRN IV hypotension; Start 06/09/21 at 07:45; Stop 06/09/21 at 13:44; Status DC Sodium Chloride 1,000 ml @ 400 mls/hr Q2H30M PRN IV PATENCY; Start 06/09/21 at 07:45; Stop 06/09/21 at 19:44; Status DC Info (PHARMACY MONITORING -- do not chart) 1 each PRN DAILY PRN MC SEE DAVID NTS; Start 06/09/21 at 07:45; Stop 06/09/21 at 07:48; Status DC Info (PHARMACY MONITORING -- do not chart) 1 each PRN DAILY PRN MC SEE COMMENTS; Start 06/09/21 at 07:45; Status Cancel Sodium Chloride 1,000 ml @ 1,000 mls/hr Q1H PRN IV hypotension; Start 06/11/21 at 08:45; Stop 06/11/21 at 14:44; Status DC Sodium Chloride (Normal Saline Flush) 10 ml 1X PRN PRN IV AP catheter pack; Start 06/11/21 at 08:45; Stop 06/12/21 at 08:44; Status DC Sodium Chloride (Normal Saline Flush) 10 ml 1X PRN PRN IV CONTENT MANAGEMENT CONSULTANT catheter pack; Start 06/11/21 at 08:45; Stop 06/12/21 at 08:44; Status DC Info (PHARMACY MONITORING -- do not chart) 1 each PRN DAILY PRN MC SEE COMMENTS; Start 06/11/21 at 08:45; Status UNV Info (PHARMACY MONITORING -- do not chart) 1 each PRN DAILY PRN MC SEE COMMENTS; Start 06/11/21 at 08:45; Status Cancel Sodium Hypochlorite (Dakin'S 1/4 Strength) 1 lópez QODAY TP Last administered on 06/24/21at 08:59; Start 06/12/21 at 08:00 Vancomycin HCl (Vancomycin Random Level) 1 each 1X ONCE MC ; Start 06/14/21 at 06:00; Stop 06/14/21 at 06:01; Status DC Sodium Chloride 1,000 ml @ 1,000 mls/hr Q1H PRN IV hypotension; Start 06/14/21 at 08:00; Stop 06/14/21 at 13:59; Status DC Albumin Human 100 ml @ 200 mls/hr 1X PRN PRN IV Hypotension Last administered on 06/14/21at 10:45; Start 06/14/21 at 08:00; Stop 06/14/21 at 13:59; Status DC Sodium Chloride 1,000 ml @ 400 mls/hr Q2H30M PRN IV PATENCY; Start 06/14/21 at 08:00; Stop 06/14/21 at 19:59; Status DC Info (PHARMACY MONITORING -- do not chart) 1 each PRN DAILY PRN MC SEE COMMENTS; Start 06/14/21 at 08:00; Status UNV Info (PHARMACY MONITORING -- do not chart) 1 each PRN DAILY PRN MC SEE COMMENTS; Start 06/14/21 at 08:00; Status Cancel Cefazolin Sodium 1 gm/Sodium Chloride 500 ml @ 500 mls/hr 1X ONCE IRR Last administered on 06/15/21at 12:02; Start 06/15/21 at 06:00; Stop 06/15/21 at 07:00; Status DC Fentanyl Citrate (Fentanyl 2ml Vial) 25 mcg PRN Q5MIN PRN IVP MILD PAIN 1-3; Start 06/15/21 at 06:00; Stop 06/16/21 at 05:59; Status DC Fentanyl Citrate (Fentanyl 2ml Vial) 50 mcg PRN Q5MIN PRN IVP MODERATE PAIN 4-6 Last administered on 06/15/21at 13:25; Start 06/15/21 at 06:00; Stop 06/16/21 at 05:59; Status DC Morphine Sulfate (Morphine Sulfate) 1 mg PRN Q10MIN PRN IVP SEVERE PAIN 7-10; Start 06/15/21 at 06:00; Stop 06/16/21 at 05:59; Status DC Ringer's Solution 1,000 ml @ 30 mls/hr Q24H IV ; Start 06/15/21 at 06:00; Stop 06/15/21 at 17:59; Status DC Hydromorphone HCl (Dilaudid) 0.5 mg PRN Q10MIN PRN IVP SEVERE PAIN 7-10, 2nd CHOICE; Start 06/15/21 at 06:00; Stop 06/16/21 at 05:59; Status DC Prochlorperazine Edisylate (Compazine) 5 mg PACU PRN PRN IVP NAUSEA, MRX1; Start 06/15/21 at 06:00; Stop 06/16/21 at 05:59; Status DC Sodium Chloride 1,000 ml @ 30 mls/hr Q24H IV Last administered on 06/15/21at 10:00; Start 06/15/21 at 10:00; Stop 06/16/21 at 16:10; Status DC Oxycodone/ Acetaminophen (Percocet 5/325) 1 tab PRN Q4HRS PRN PO PAIN Last administered on 06/17/21at 11:56; Start 06/15/21 at 11:45 Hydromorphone HCl (Dilaudid) 0.2 mg PRN Q4HRS PRN IVP PAIN Last administered on 06/18/21at 12:31; Start 06/15/21 at 11:45 Oxycodone/ Acetaminophen (Percocet 5/325) 2 tab PRN Q4HRS PRN PO BREAKTHROUGH PAIN Last administered on 06/24/21at 20:41; Start 06/15/21 at 12:00 Vancomycin HCl (Vancomycin Random Level) 1 each 1X ONCE MC Last administered on 06/18/21at 05:00; Start 06/18/21 at 05:00; Stop 06/18/21 at 05:01; Status DC Sodium Chloride 1,000 ml @ 1,000 mls/hr Q1H PRN IV hypotension; Start 06/16/21 at 16:00; Stop 06/16/21 at 21:59; Status DC Sodium Chloride 1,000 ml @ 400 mls/hr Q2H30M PRN IV PATENCY; Start 06/16/21 at 16:00; Stop 06/17/21 at 03:59; Status DC Info (PHARMACY MONITORING -- do not chart) 1 each PRN DAILY PRN MC SEE COMMENTS; Start 06/16/21 at 16:00; Status Cancel Sodium Chloride 1,000 ml @ 1,000 mls/hr Q1H PRN IV hypotension; Start 06/16/21 at 18:30; Stop 06/17/21 at 00:29; Status DC Albumin Human 200 ml @ 200 mls/hr 1X PRN PRN IV Hypotension; Start 06/16/21 at 18:30; Stop 06/17/21 at 00:29; Status DC Sodium Chloride (Normal Saline Flush) 10 ml 1X PRN PRN IV AP catheter pack; Start 06/16/21 at 18:30; Stop 06/17/21 at 18:29; Status DC Sodium Chloride (Normal Saline Flush) 10 ml 1X PRN PRN IV CONTENT MANAGEMENT CONSULTANT catheter pack; Start 06/16/21 at 18:30; Stop 06/17/21 at 18:29; Status DC Sodium Chloride 1,000 ml @ 400 mls/hr Q2H30M PRN IV PATENCY; Start 06/16/21 at 18:30; Stop 06/17/21 at 06:29; Status DC Info (PHARMACY MONITORING -- do not chart) 1 each PRN DAILY PRN MC SEE COMMENTS; Start 06/16/21 at 18:30; Status UNV Info (PHARMACY MONITORING -- do not chart) 1 each PRN DAILY PRN MC SEE COMMJessica NTS; Start 06/16/21 at 18:30; Stop 06/21/21 at 13:23; Status DC Midodrine (Proamatine) 2.5 mg [id number] PO Last administered on 06/25/21at 08:20; Start 06/17/21 at 18:00 Sodium Chloride 1,000 ml @ 1,000 mls/hr Q1H PRN IV hypotension; Start 06/18/21 at 08:00; Stop 06/18/21 at 13:59; Status DC Sodium Chloride 1,000 ml @ 400 mls/hr Q2H30M PRN IV PATENCY; Start 06/18/21 at 08:00; Stop 06/18/21 at 19:59; Status DC Info (PHARMACY MONITORING -- do not chart) 1 each PRN DAILY PRN MC SEE COMMENTS; Start 06/18/21 at 08:00; Status Cancel Propofol (Diprivan) 200 mg STK-MED ONCE IV ; Start 06/15/21 at 10:53; Stop 06/18/21 at 12:36; Status DC Lidocaine HCl (Xylocaine-Mpf 1% 5ml Vial) 5 ml STK-MED ONCE .ROUTE ; Start 06/15/21 at 10:53; Stop 06/18/21 at 12:36; Status DC Fentanyl Citrate (Fentanyl 2ml Vial) 100 mcg STK-MED ONCE .ROUTE ; Start 06/15/21 at 10:53; Stop 06/18/21 at 12:36; Status DC Ephedrine Sulfate (Akovaz) 50 mg STK-MED ONCE .ROUTE ; Start 06/15/21 at 12:18; Stop 06/18/21 at 12:36; Status DC Phenylephrine HCl (PHENYLEPHRINE in 0.9% NACL PF) 1 mg STK-MED ONCE IV ; Start 06/15/21 at 12:18; Stop 06/18/21 at 12:36; Status DC Glycopyrrolate (Robinul) 1 mg STK-MED ONCE .ROUTE ; Start 06/15/21 at 12:38; Stop 06/18/21 at 12:36; Status DC Fentanyl Citrate (Fentanyl 2ml Vial) 100 mcg STK-MED ONCE .ROUTE ; Start 06/15/21 at 13:22; Stop 06/18/21 at 12:36; Status DC Vancomycin HCl (Vancomycin Random Level) 1 each 1X ONCE MC ; Start 06/21/21 at 06:00; Stop 06/19/21 at 12:13; Status DC Sodium Chloride 1,000 ml @ 1,000 mls/hr Q1H PRN IV hypotension; Start 06/21/21 at 08:00; Stop 06/21/21 at 13:59; Status DC Albumin Human 200 ml @ 200 mls/hr 1X PRN PRN IV Hypotension; Start 06/21/21 at 08:00; Stop 06/21/21 at 13:59; Status DC Sodium Chloride (Normal Saline Flush) 10 ml 1X PRN PRN IV AP catheter pack; Start 06/21/21 at 08:00; Stop 06/22/21 at 07:59; Status DC Sodium Chloride (Normal Saline Flush) 10 ml 1X PRN PRN IV CONTENT MANAGEMENT CONSULTANT catheter pack; Start 06/21/21 at 08:00; Stop 06/22/21 at 07:59; Status DC Sodium Chloride 1,000 ml @ 400 mls/hr Q2H30M PRN IV PATENCY; Start 06/21/21 at 08:00; Stop 06/21/21 at 19:59; Status DC Info (PHARMACY MONITORING -- do not chart) 1 each PRN DAILY PRN MC SEE COMMENTS; Start 06/21/21 at 08:00; Status UNV Info (PHARMACY MONITORING -- do not chart) 1 each PRN DAILY PRN MC SEE COMMENTS; Start 06/21/21 at 08:00; Status Cancel Pregabalin (Lyrica) 150 mg BID PO Last administered on 06/24/21at 20:37; Start 06/22/21 at 21:00 Sodium Chloride 1,000 ml @ 1,000 mls/hr Q1H PRN IV hypotension; Start 06/23/21 at 08:30; Stop 06/23/21 at 14:29; Status DC Sodium Chloride 1,000 ml @ 400 mls/hr Q2H30M PRN IV PATENCY; Start 06/23/21 at 08:30; Stop 06/23/21 at 20:29; Status DC Info (PHARMACY MONITORING -- do not chart) 1 each PRN DAILY PRN MC SEE COMMENTS; Start 06/23/21 at 08:30 Multi-Ingredient Ointment (Hydrocerin, Eucerin Cream) 1 lópez BID TP Last administered on 06/24/21at 20:39; Start 06/23/21 at 11:00 Mupirocin (Bactroban) 1 lópez BID TP Last administered on 06/24/21at 20:39; Start 06/23/21 at 11:00 Sodium Chloride 1,000 ml @ 1,000 mls/hr Q1H PRN IV hypotension; Start 06/25/21 at 08:00; Stop 06/25/21 at 13:59 Sodium Chloride (Normal Saline Flush) 10 ml 1X PRN PRN IV AP catheter pack; Start 06/25/21 at 08:00; Stop 06/26/21 at 07:59 Sodium Chloride (Normal Saline Flush) 10 ml 1X PRN PRN IV [employer] catheter pack; Start 06/25/21 at 08:00; Stop 06/26/21 at 07:59 Active Scripts Active Metoprolol Succinate 50 Mg Tab.er.24h 50 Mg PO DAILY 30 Days Levetiracetam 500 Mg Tablet 500 Mg PO BID 30 Days Reported Trazodone Hcl 50 Mg Tablet 1 Tab PO QHS Xultophy 100 Unit-3.6 mg/ml (Insulin Degludec/Liraglutide) 3 Ml Insuln.pen 24 Ml SQ HS Vitamin D (Cholecalciferol (Vitamin D3)) 1,000 Unit Capsule 1 Cap PO DAILY Atorvastatin Calcium 10 Mg Tablet 10 Mg PO DAILY Sildenafil (Sildenafil Citrate) 20 Mg Tablet 20 Mg PO TID Zetia (Ezetimibe) 10 Mg Tablet 10 Mg PO DAILY Omeprazole 40 Mg Capsule.dr 40 Mg PO DAILY Topiramate 100 Mg Tablet 100 Mg PO BID Promethazine Hcl 25 Mg Tablet 25 Mg PO Q6H PRN B-12 (Cyanocobalamin (Vitamin B-12)) 1,000 Mcg Tablet 1,000 Mcg PO DAILY Vascepa (Icosapent Ethyl) 1 Gm Capsule 2 Cap PO BID Aspirin Ec (Aspirin) 81 Mg Tablet.dr 81 Mg PO DAILY Duloxetine Hcl 60 Mg Capsule.dr 60 Mg PO HS Lyrica (Pregabalin) 225 Mg Capsule 225 Mg PO BID Losartan-Hctz 100-25 Mg Tab (Losartan/Hydrochlorothiazide) 1 Each Tablet 25 Mg PO DAILY Mirtazapine 45 Mg Tablet 45 Mg PO HS Amlodipine Besylate 5 Mg Tablet 5 Mg PO DAILY Vitals/I & O Vital Sign - Last 24 Hours 06/24/21 06/24/21 06/24/21 06/24/21 11:00 13:00 15:00 16:45 Temp 97.9 97.6 97.9 97.6 Pulse 64 64 66 66 Resp 18 18 B/P (MAP) 113/64 (80) 113/64 119/64 (82) 119/64 Pulse Ox 92 99 O2 Delivery Room Air Room Air 06/24/21 06/24/21 06/24/21 06/25/21 19:00 19:42 23:00 03:00 Temp 97.7 98.2 98.4 97.7 98.2 98.4 Pulse 82 72 57 Resp 16 18 16 B/P (MAP) 103/58 (73) 113/72 (86) 93/49 (64) Pulse Ox 98 98 99 O2 Delivery Room Air Room Air Room Air Room Air 06/25/21 06/25/21 06:24 08:20 Temp 97.4 97.4 Pulse 55 55 Resp 16 B/P (MAP) 102/59 (73) 102/59 Pulse Ox 98 O2 Delivery Room Air Intake and Output 06/24/21 06/24/21 06/25/21 15:00 23:00 07:00 Intake Total 300 ml Balance 300 ml TAMRA ABRAHAM MD Jun 25, 2021 09:24
--- NOTE | 2021-06-25 10:55 | PDOC ---
Renal-Progress Notes Subjective Notes Notes NO NEW COMPLAINTS History of Present Illness Hx of present illness STABLE Vitals Vitals Vital Signs Date Time Temp Pulse Resp B/P (MAP) Pulse Ox O2 Delivery O2 Flow Rate FiO2 06/25/21 08:20 55 102/59 06/25/21 08:00 Room Air 06/25/21 06:24 97.4 16 98 97.4 06/24/21 08:13 2.0 Weight Weight [ ] I.O. Intake and Output Intake and Output 06/25/21 07:00 Intake Total 300 ml Balance 300 ml Intake Oral 300 ml # Bowel Movements 1 Labs Labs Laboratory Tests Test 06/24/21 11:13 06/24/21 16:40 06/24/21 19:25 06/25/21 07:56 Glucose (Fingerstick) 90 mg/dL (70-99) 97 mg/dL (70-99) 146 mg/dL (70-99) 174 mg/dL (70-99) Micro Micro Microbiology 05/28/21 Gram Stain - Final, Complete 05/28/21 Aerobic and Anaerobic Culture - Final, Complete 05/28/21 Antimicrobic Susceptibility - Final, Complete 05/26/21 Blood Culture - Final, Complete NO GROWTH AFTER 5 DAYS Review of Systems Constitutional: yes: weakness, alert, oriented, other Ears/Nose/Throat: Yes: no symptom reported Eyes: Yes: no symptom reported Pulmonary: Yes no symptom reported Cardiovascular: Yes no symptom reported Gastrointestional: Yes: constipation Genitourinary: Yes: no symptom reported Musculoskeletal: Yes: leg pain, foot pain Skin: Yes no symptom reported Psychiatric/Neurological: Yes: depressed Endocrine: Yes: no symptom reported Hematologic/Lymphatic: Yes: no symptom reported Physical Exam General Appearance: no apparent distress Skin: warm Respiratory: decreased breath sounds Heart: S1S2 Abdomen: soft, bowel sounds present Genitourinary: bladder flat Neurology: alert, oriented, follow commands Assessment Assessment IMP ESRD-MWF ANEMIA DM II-LABILE BG ENCEPHALOPATHY-RESOLVED HTN HX LEFT TMA STUMP WOUND PROB SEPSIS HYPOTENSION-CORRECTED MALNUTRITION CARDIAC ARRHYTHMIA S/P L BKA PLAN HD TODAY UF TO TW CONT MIDODRINE VINNIE NEEDED WOUND CARE AWAITING TRANSFER TO [facility] WILL FOLLOW NUBIA PATTON MD Jun 25, 2021 10:54
--- NOTE | 2021-06-25 11:06 | PN ---
DATE: 06/25/2021 SUBJECTIVE: The patient is resting flat in bed, having his scheduled hemodialysis. On questioning him, he denied any complaint. The nursing staff did not voice any concerns that he had an eventful night. PHYSICAL EXAMINATION: GENERAL: When I examined him, he looked pale, somewhat cachectic, but not jaundiced or cyanosed. No thyromegaly. No jugular venous distention. No limb edema. VITAL SIGNS: His heart rate was 55, blood pressure was 102/59, temperature was 97.4, respiratory rate was 16 and oxygen saturation was 98% on room air. HEAD, EYES, EARS, NOSE AND THROAT: Normocephalic, atraumatic. NECK: Supple. HEART: Showed normal first and second heart sounds. No gallop, rub or murmur. CHEST: Showed central trachea, equal bilateral chest expansion, air entry, vesicular breath sounds. No crepitation or rhonchi. ABDOMEN: Scaphoid, soft, nontender. NEUROLOGIC: He was somewhat sleepy and confused, but all his cranial nerves are intact. He moves extremities without difficulty. EXTREMITIES: His left lower extremity is in a splint. His intake and output are incompletely recorded. LABORATORY DATA: As of yesterday, his hemoglobin was 10.6. His chemistry is variable as he is hemodialysis dependent. His blood sugar seems to be well controlled. ASSESSMENT: 1. Severe peripheral arterial disease, status post right below-knee amputation. 2. The patient has asymptomatic COVID-19 infection. He is now off the isolation. 3. The patient has end-stage renal disease, on hemodialysis Monday, Monday, Monday. 4. Type 1 diabetes mellitus with multiple complications. 5. Atrial fibrillation, rate controlled, not anticoagulated. 6. Coronary artery disease status post coronary artery bypass graft surgery. 7. Ischemic cardiomyopathy. 8. Hypertension. 9. Cerebrovascular accident. 10. Peripheral neuropathy. 11. History of chronic subdural hematoma that has apparently resolved. 12. Seizure disorder. 13. Peripheral arterial disease, status post right forefoot amputation. 14. Metabolic encephalopathy that has mostly resolved. PLAN: To continue with wound care. Continue with hemodialysis. Continue with pain management. Continue with midodrine for hypotension. Continue with Keppra for seizure disorder. Continue with Epogen for anemia of chronic kidney disease. Continue to monitor his blood sugar and adjust insulin as needed. Continue with DVT and GI prophylaxis. Continue with physical and occupational therapy. Await insurance approval for discharge to [facility]. CHERYL/ALISSA/TOM DR: Tyler TID: [id number]
--- NOTE | 2021-06-25 12:00 | PDOC ---
TEJAL GUO [employer] SAL[employer] EXECUTIVE 06/25/21 1200: CARDIO Progress Notes Date and Time Date of Service 06/25/2021 Time of Evaluation 1150 Subjective Subjective: No Chest Pain, No shortness of breath, No Palpitations Vitals Vitals Vital Signs Date Time Temp Pulse Resp B/P (MAP) Pulse Ox O2 Delivery O2 Flow Rate FiO2 06/25/21 08:20 55 102/59 06/25/21 08:00 Room Air 06/25/21 06:24 97.4 16 98 97.4 06/24/21 08:13 2.0 Weight Weight [ ] Input and Output Intake and Output Intake and Output 06/25/21 07:00 Intake Total 300 ml Balance 300 ml Intake Oral 300 ml # Bowel Movements 1 Laboratory Labs Laboratory Tests Test 06/24/21 16:40 06/24/21 19:25 06/25/21 07:56 Glucose (Fingerstick) 97 mg/dL (70-99) 146 mg/dL (70-99) 174 mg/dL (70-99) Microbiology Micro Microbiology 05/28/21 Gram Stain - Final, Complete 05/28/21 Aerobic and Anaerobic Culture - Final, Complete 05/28/21 Antimicrobic Susceptibility - Final, Complete 05/26/21 Blood Culture - Final, Complete NO GROWTH AFTER 5 DAYS Review of Systems Constitutional: yes: weakness, alert, oriented, other Ears/Nose/Throat: Yes: no symptom reported Eyes: Yes: no symptom reported Pulmonary: Yes no symptom reported Cardiovascular: Yes no symptom reported Gastrointestional: Yes: constipation Genitourinary: Yes: no symptom reported Musculoskeletal: Yes: leg pain, foot pain Skin: Yes no symptom reported Psychiatric/Neurological: Yes: depressed Endocrine: Yes: no symptom reported Hematologic/Lymphatic: Yes: no symptom reported Physical Exam HEENT: Neck Supple W Full Motion Chest: Symmetric LUNGS: Other (diminished bases ) Heart: RRR (atrial flutter 3:1) Abdomen: Soft N/T Extremities: Other (LBKA) Neurology: alert, oriented, follow commands Assessment Assessment 1. COVID +: off quarantine, doing well 2. Acute encephalopathy: resolved 3. ESRD on HD 4. PAFIB: rate controlled in atrial flutter. stable 5. CAD: s/p CABG. unclear if any recent w/u, clinically stable 6. HTN; controlled overall 7. DM2 8. S/P LBKA 9. Anemia: s/p transfusion. hgb stable. 11.3 10. Sepsis 11. Hx of mild CM: Limited echo with EF 30-35%, compensated 12. Mild to moderate , moderate to severe TR. Estimated PAP 60 mmHg. 13. Severe LLE PAD: Abdominal aortogram revealed no significant aortoiliac disease bilaterally and moderate diffuse 50 to 60% stenosis involving the SFA with one-vessel runoff bilaterally. Recommendations Continued metoprolol for rate control Poor candidate for anticoagulation with anemia and prior hx of SDH. Continue baby ASA for stroke prevention Secondary prevention measures Fluid offloading via HD today Supportive care. Outpt ischemic workup if none recent Awaiting rehab placement Justicifation of Admission Dx: Justifications for Admission: Justification of Admission Dx: N/A CARRIE MCCLAIN MD 06/25/21 1831: CARDIO Progress Notes Plan Plan The patient was seen and interviewed as well as examined at the bedside. The chart was reviewed. The case was discussed. Agree with the plan of care. TEJAL GUO APRN Jun 25, 2021 12:00 CARRIE MCCLAIN MD Jun 25, 2021 18:31
--- NOTE | 2021-06-25 12:12 | NUR ---
MARIANO following. Discussed with RN, still pending insurance auth for [facility]. Updates faxed. MARIANO will continue to follow. Addendum: 06/25/21 at 1630 by KYLAH QUINTANA Insurance approved [facility], awaiting bed availability. Heladio with [facility] will contact nurses station this weekend with bed. Family and RN notified.
--- NOTE | 2021-06-25 12:32 | PDOC ---
Provider Note Date of Service: DATE: 06/25/21 TIME: 12:30 Provider Note Provider Note Vascular update: Pt is scheduled for AVF/AVG dialysis access placement on Thursday 06/[address] iWlson. He does not need to remain inpatient for this, it can be done as an outpatient procedure. He is stable for discharge from our standpoint. See Roxanna Oconnor note from yesterday for more details. Please notify vascular if he discharges prior to surgery on Monday. Justicifation of Admission Dx: Justifications for Admission: Justification of Admission Dx: N/A AVILA TYALOR Jun 25, 2021 12:32
[2021-06-25] MEDS: EZETIMIBE 10 MG TABLET. PO SCH (14:20)
[2021-06-25] MEDS: ATORVASTATIN CALCIUM 10 MG TABLET. PO SCH (14:21)
[2021-06-25] MEDS: levETIRAcetam 500 MG TABLET PO SCH ×2 (14:21→22:01)
[2021-06-25] MEDS: CHOLECALCIFEROL (VITAMIN D3) 1,000 UNIT TABLET PO SCH (14:21)
[2021-06-25] MEDS: ASPIRIN ENTERIC COATED 81 MG TABLET.DR. PO SCH (14:21)
[2021-06-25] MEDS: TOPIRAMATE 100 MG TABLET. PO SCH ×2 (14:21→22:01)
[2021-06-25] MEDS: PANTOPRAZOLE 40 MG TABLET.DR. PO SCH (14:21)
[2021-06-25] MEDS: METOPROLOL SUCC 24HR ER 50 MG TAB.ER.24H. PO SCH (14:21)
[2021-06-25] MEDS: LACTOBACILLUS RHAMNOSUS GG 1 CAPSULE. PO SCH ×2 (14:21→22:01)
[2021-06-25] MEDS: CYANOCOBALAMIN (VITAMIN B-12) 1,000 MCG TABLET. PO SCH (14:22)
[2021-06-25] MEDS: PREGABALIN 75 MG CAPSULE PO SCH ×2 (14:22→22:02)
[2021-06-25 15:00] VITALS: BP 85/56
[2021-06-25 19:00] VITALS: BP 88/41
[2021-06-25] MEDS: DULoxetine HCL 30 MG CAPSULE.DR PO SCH (22:01)
[2021-06-25] MEDS: MIRTAZAPINE 15 MG TABLET PO SCH (22:01)
[2021-06-25] MEDS: traZODone 50 MG TABLET. PO SCH (22:02)
[2021-06-25] MEDS: EPOETIN ALFA-EPBX for ESRD 20,000 UNIT/ML VIAL. SQ SCH (22:07)
[2021-06-25 23:00] VITALS: BP 125/72
[2021-06-26] VITALS (8 sets, daily range): BP systolic 76–151; BP diastolic 37–87
[2021-06-26] MEDS: MIDODRINE 2.5 MG TABLET PO SCH ×3 (07:00→17:14)
[2021-06-26] MEDS: INSULIN LISPRO 300 UNITS/3 ML VIAL. SQ SCH ×3 (08:25→17:34)
[2021-06-26] MEDS: LACTOBACILLUS RHAMNOSUS GG 1 CAPSULE. PO SCH ×2 (08:26→23:26)
[2021-06-26] MEDS: CHOLECALCIFEROL (VITAMIN D3) 1,000 UNIT TABLET PO SCH (08:26)
[2021-06-26] MEDS: levETIRAcetam 500 MG TABLET PO SCH ×2 (08:26→23:26)
[2021-06-26] MEDS: ASPIRIN ENTERIC COATED 81 MG TABLET.DR. PO SCH (08:27)
[2021-06-26] MEDS: TOPIRAMATE 100 MG TABLET. PO SCH ×2 (08:27→23:27)
[2021-06-26] MEDS: PREGABALIN 75 MG CAPSULE PO SCH ×2 (08:27→23:27)
[2021-06-26] MEDS: PANTOPRAZOLE 40 MG TABLET.DR. PO SCH (08:28)
[2021-06-26] MEDS: ATORVASTATIN CALCIUM 10 MG TABLET. PO SCH (08:28)
[2021-06-26] MEDS: EZETIMIBE 10 MG TABLET. PO SCH (08:28)
[2021-06-26] MEDS: METOPROLOL SUCC 24HR ER 50 MG TAB.ER.24H. PO SCH (08:28)
[2021-06-26] MEDS: CYANOCOBALAMIN (VITAMIN B-12) 1,000 MCG TABLET. PO SCH (08:28)
[2021-06-26] MEDS: MUPIROCIN 2 % OINTMENT 22GM TUBE. TP SCH ×2 (08:29→23:13)
[2021-06-26] MEDS: MINERAL OIL/PETROLATUM TOPICAL CREAM 113GM JAR. TP SCH ×2 (08:29→23:13)
[2021-06-26] MEDS: SODIUM HYPOCHLORITE 0.125% 473 ML BOTTLE. TP SCH (09:00)
--- NOTE | 2021-06-26 09:28 | PN ---
DATE: 06/26/2021 SUBJECTIVE: The patient is resting, slightly propped up in bed, in no apparent respiratory distress. He is awake, alert. On questioning him, he denied any complaint. He was eager to be discharged. We are waiting for the insurance authorization for him to be transferred to [facility]. The nursing staff did not voice any concerns that he had an eventful night. PHYSICAL EXAMINATION: GENERAL: When I examined him, he was pale, somewhat cachectic, not jaundiced, cyanosed, or thyromegaly. No jugular venous distention. No limb edema. VITAL SIGNS: His heart rate was 74, blood pressure is 125/76, temperature was 98.9, respiratory rate was 18 and oxygen saturation was 99% on room air. HEAD, EYES, EARS, NOSE, AND THROAT: Normocephalic, atraumatic. NECK: Supple. HEART: Normal first and second heart sounds. No gallop, rub or murmur. CHEST: Clear to auscultation, no crepitation or rhonchi. ABDOMEN: Distended, soft, nontender. NEUROLOGIC: He was grossly intact. He has left below-knee amputation with a stump wound healing without any redness, tenderness or discharge. Tasha are still in place. His intake and output are incompletely recorded. LABORATORY DATA: His lab work as most recent hemoglobin was 10.6. His chemistry is variable. He is hemodialysis dependent. ASSESSMENT: 1. Severe peripheral arterial disease, status post right below-knee amputation. 2. The patient has asymptomatic COVID-19 infection. He is now off the isolation. 3. The patient has end-stage renal disease, on hemodialysis Monday, Monday, Monday. 4. Type 2 diabetes mellitus with multiple complications. 5. Atrial fibrillation, rate controlled, not anticoagulated. 6. Coronary artery disease status post coronary artery bypass graft surgery. 7. Ischemic cardiomyopathy. 8. Hypertension. 9. Cerebrovascular accident. 10. Peripheral neuropathy. 11. History of chronic subdural hematoma that has apparently resolved. 12. Seizure disorder. 13. Peripheral arterial disease, status post right forefoot amputation. 14. Metabolic encephalopathy that has mostly resolved. PLAN: To continue with wound care. Continue with hemodialysis. Continue with pain management. Continue with midodrine, hypertension. Continue with Keppra for seizure disorder. Continue with Epogen for anemia of chronic kidney disease. Continue to monitor his blood sugar and adjust insulin as needed. Continue with DVT and GI prophylaxis. Continue with physical and occupational therapy. He will be discharged as soon as his insurance authorized that. RADHA DR: Tyler TID: [id number]
--- NOTE | 2021-06-26 10:13 | PN ---
PROGRESS NOTES Date of Service DATE: 06/26/21 TIME: 10:11 Subjective Subjective No new complaints. Objective Objective Vital Signs Date Time Temp Pulse Resp B/P (MAP) Pulse Ox O2 Delivery O2 Flow Rate FiO2 06/26/21 08:28 74 113/63 06/26/21 03:00 98.9 18 99 Room Air 98.9 06/25/21 20:00 2.0 Intake and Output 06/26/21 07:00 Intake Total 440 ml Balance 440 ml Intake Oral 440 ml # Voids 1 Physical Exam Physical Exam He is alert,supine in bed and some edema and redness of left BK stump and gopi in place and no discharge. and he continues to require physical assistance for bed mobility and transfers. Diagnosis PROBLEM LIST Problems Medical Problems: (1) Altered mental status Status: Acute (2) COVID-19 Status: Acute (3) Draining postoperative wound Status: Acute (4) ESRD (end stage renal disease) on dialysis Status: Acute (5) Severe anemia Status: Acute Assessment Assessment Problems Medical Problems: (1) Altered mental status Status: Acute (2) COVID-19 Status: Acute (3) Draining postoperative wound Status: Acute (4) ESRD (end stage renal disease) on dialysis Status: Acute (5) Severe anemia Status: Acute Plan Plan of Care To SNF or rehab unit if his health insurance approves when medically stable. Comment Review of Relevant I have reviewed the following items yifan (where applicable) has been applied. Labs Laboratory Tests Test 06/24/21 11:13 06/24/21 16:40 06/24/21 19:25 06/25/21 07:56 Glucose (Fingerstick) 90 mg/dL (70-99) 97 mg/dL (70-99) 146 mg/dL (70-99) 174 mg/dL (70-99) Test 06/25/21 13:21 06/25/21 16:18 06/25/21 20:52 06/26/21 07:53 Glucose (Fingerstick) 133 mg/dL (70-99) 166 mg/dL (70-99) 170 mg/dL (70-99) 248 mg/dL (70-99) Laboratory Tests Test 06/25/21 13:21 06/25/21 16:18 06/25/21 20:52 06/26/21 07:53 Glucose (Fingerstick) 133 mg/dL (70-99) 166 mg/dL (70-99) 170 mg/dL (70-99) 248 mg/dL (70-99) Microbiology 05/28/21 Gram Stain - Final, Complete 05/28/21 Aerobic and Anaerobic Culture - Final, Complete 05/28/21 Antimicrobic Susceptibility - Final, Complete 05/26/21 Blood Culture - Final, Complete NO GROWTH AFTER 5 DAYS Medications Current Medications Sodium Chloride 1,000 ml @ 1,000 mls/hr 1X ONCE IV ; Start 05/26/21 at 01:30; Stop 05/26/21 at 02:29; Status DC Piperacillin Sod/ Tazobactam Sod (Zosyn Per Pharmacy) 1 each PRN DAILY PRN MC SEE COMMENTS; Start 05/26/21 at 01:30; Status Cancel Piperacillin Sod/ Tazobactam Sod 3.375 gm/Sodium Chloride 50 ml @ 100 mls/hr 1X ONCE IV Last administered on 05/26/21at 03:25; Start 05/26/21 at 02:15; Stop 05/26/21 at 02:44; Status DC Vancomycin HCl (Vanco Per Pharmacy) 1 each PRN DAILY PRN MC SEE COMMENTS Last administered on 06/18/21at 13:56; Start 05/26/21 at 03:15; Stop 06/19/21 at 12:13; Status DC Sodium Chloride 500 ml @ 500 mls/hr 1X ONCE IV Last administered on 05/26/21at 03:25; Start 05/26/21 at 03:30; Stop 05/26/21 at 04:29; Status DC Ondansetron HCl (Zofran) 4 mg PRN Q8HRS PRN IVP NAUSEA/VOMITING; Start 05/26/21 at 03:30; Stop 05/27/21 at 03:29; Status DC Acetaminophen (Tylenol) 650 mg PRN Q4HRS PRN PO FEVER > 100.3'F; Start 05/26/21 at 03:30; Stop 05/27/21 at 03:29; Status DC Insulin Human Lispro (HumaLOG) 0-5 UNITS TIDWMEALS SQ Last administered on 05/26/21at 09:09; Start 05/26/21 at 08:00; Stop 05/26/21 at 12:46; Status DC Dextrose (Dextrose 50%-Water Syringe) 12.5 gm PRN Q15MIN PRN IV SEE COMMENTS; Start 05/26/21 at 03:30; Status Cancel Vancomycin HCl 1.75 gm/Sodium Chloride 500 ml @ 250 mls/hr 1X ONCE IV Last administered on 05/26/21at 05:47; Start 05/26/21 at 06:00; Stop 05/26/21 at 07:59; Status DC Piperacillin Sod/ Tazobactam Sod 2.25 gm/Sodium Chloride 50 ml @ 100 mls/hr Q8HRS IV Last administered on 06/02/21at 05:35; Start 05/26/21 at 08:00; Stop 06/02/21 at 08:27; Status DC Sodium Hypochlorite (Dakin'S 1/4 Strength) 1 lópez BID TP Last administered on 06/09/21at 20:23; Start 05/26/21 at 11:00; Stop 06/11/21 at 10:19; Status DC Aspirin (Ecotrin) 81 mg DAILY PO Last administered on 06/26/21at 08:27; Start 05/26/21 at 14:00 Atorvastatin Calcium (Lipitor) 10 mg DAILY PO Last administered on 06/26/21at 08:28; Start 05/26/21 at 14:00 Cyanocobalamin (Vitamin B-12) 1,000 mcg DAILY PO Last administered on 06/26/21at 08:28; Start 05/27/21 at 09:00 EZETIMIBE (Zetia) 10 mg DAILY PO Last administered on 06/26/21at 08:28; Start 05/26/21 at 14:00 Topiramate (Topamax) 100 mg BID PO Last administered on 06/26/21at 08:27; Start 05/26/21 at 14:00 Trazodone HCl (Desyrel) 50 mg QHS PO Last administered on 06/25/21at 22:02; Start 05/26/21 at 21:00 Vitamin D (Vitamin D3) 1,000 unit DAILY PO Last administered on 06/26/21at 08:26; Start 05/26/21 at 14:00 Duloxetine HCl (Cymbalta) 60 mg HS PO Last administered on 06/25/21at 22:01; Start 05/26/21 at 21:00 Non-Formulary Medication (Icosapent Ethyl (Vascepa)) 2 cap BID PO ; Start 05/26/21 at 21:00; Status UNV Mirtazapine (Remeron) 45 mg QHS PO Last administered on 06/25/21at 22:01; Start 05/26/21 at 21:00 Pantoprazole Sodium (Protonix) 40 mg DAILYAC PO Last administered on 06/26/21at 08:28; Start 05/26/21 at 14:00 Pregabalin (Lyrica) 225 mg BID PO Last administered on 06/22/21at 08:53; Start 05/26/21 at 14:00; Stop 06/22/21 at 09:38; Status DC Promethazine HCl (Phenergan) 25 mg PRN Q6HRS PRN PO NAUSEA/VOMITING Last administered on 06/17/21at 21:21; Start 05/26/21 at 13:00 Levetiracetam 100 ml @ 400 mls/hr Q12HR IV ; Start 05/26/21 at 21:00; Status UNV Insulin Human Lispro (HumaLOG) 0-5 UNITS TIDWMEALS SQ Last administered on 06/26/21at 08:25; Start 05/26/21 at 17:00 Dextrose (Dextrose 50%-Water Syringe) 12.5 gm PRN Q15MIN PRN IV SEE COMMENTS; Start 05/26/21 at 12:45 Levetiracetam (Keppra) 500 mg BID PO ; Start 05/26/21 at 14:00; Status Cancel Lactobacillus Rhamnosus (Culturelle) 1 cap BID PO Last administered on 06/26/21at 08:26; Start 05/26/21 at 21:00 Levetiracetam 100 ml @ 400 mls/hr Q12HR IV Last administered on 05/29/21at 21:38; Start 05/26/21 at 14:00; Stop 05/29/21 at 23:00; Status DC Epoetin Catalino-epbx (RETACRIT for ESRD PTS) 10,000 unit MoWeFr@2100 SQ Last administered on 06/25/21at 22:07; Start 05/26/21 at 21:00 Vancomycin HCl (Vancomycin Random Level) 1 each 1X ONCE MC Last administered on 05/27/21at 05:00; Start 05/27/21 at 05:00; Stop 05/27/21 at 05:01; Status DC Info (PHARMACY MONITORING -- do not chart) 1 each PRN DAILY PRN MC SEE COMMENTS; Start 05/26/21 at 18:30; Status Cancel Vancomycin HCl (Vancomycin Random Level) 1 each 1X ONCE MC Last administered on 05/29/21at 06:00; Start 05/29/21 at 06:00; Stop 05/29/21 at 06:01; Status DC Sodium Chloride 1,000 ml @ 1,000 mls/hr Q1H PRN IV hypotension; Start 05/28/21 at 11:45; Stop 05/28/21 at 17:44; Status DC Sodium Chloride (Normal Saline Flush) 10 ml 1X PRN PRN IV AP catheter pack; Start 05/28/21 at 11:45; Stop 05/29/21 at 11:44; Status DC Sodium Chloride (Normal Saline Flush) 10 ml 1X PRN PRN IV CORRECTIONAL PROGRAM SPECIALIST catheter pack; Start 05/28/21 at 11:45; Stop 05/29/21 at 11:44; Status DC Sodium Chloride 1,000 ml @ 400 mls/hr Q2H30M PRN IV PATENCY; Start 05/28/21 at 11:45; Stop 05/28/21 at 23:44; Status DC Info (PHARMACY MONITORING -- do not chart) 1 each PRN DAILY PRN MC SEE COMMENTS; Start 05/28/21 at 11:45; Status UNV Info (PHARMACY MONITORING -- do not chart) 1 each PRN DAILY PRN MC SEE COMMENTS; Start 05/28/21 at 11:45; Status UNV Metoprolol Succinate (Toprol Xl) 50 mg DAILY PO Last administered on 06/26/21at 08:28; Start 05/28/21 at 14:00 Vancomycin HCl (Vancomycin Random Level) 1 each 1X ONCE MC Last administered on 06/02/21at 06:00; Start 06/02/21 at 06:00; Stop 06/02/21 at 06:01; Status DC Levetiracetam (Keppra) 500 mg BID PO Last administered on 06/26/21at 08:26; Start 05/30/21 at 09:00 Perflutren Protein Type A Microsphe (Optison) 0.66 mg 1X ONCE IV ; Start 05/31/21 at 08:15; Stop 05/31/21 at 08:16; Status DC Sodium Chloride 1,000 ml @ 1,000 mls/hr Q1H PRN IV hypotension; Start 05/31/21 at 10:15; Stop 05/31/21 at 16:14; Status DC Albumin Human 200 ml @ 200 mls/hr 1X PRN PRN IV Hypotension; Start 05/31/21 at 10:15; Stop 05/31/21 at 16:14; Status DC Sodium Chloride 1,000 ml @ 400 mls/hr Q2H30M PRN IV PATENCY; Start 05/31/21 at 10:15; Stop 05/31/21 at 22:14; Status DC Info (PHARMACY MONITORING -- do not chart) 1 each PRN DAILY PRN MC SEE COMMENTS; Start 05/31/21 at 10:15; Status Cancel Meropenem 500 mg/ Sodium Chloride 50 ml @ 100 mls/hr DAILY IV Last administered on 06/19/21at 09:52; Start 06/02/21 at 09:00; Stop 06/19/21 at 22:00; Status DC Fluconazole (Diflucan) 200 mg DAILY PO Last administered on 06/20/21at 09:23; Start 06/02/21 at 09:00; Stop 06/21/21 at 13:24; Status DC Vancomycin HCl 500 mg/Sodium Chloride 100 ml @ 100 mls/hr QMWF IV Last administered on 06/11/21at 14:47; Start 06/04/21 at 16:00; Stop 06/14/21 at 12:18; Status DC Sodium Chloride 1,000 ml @ 1,000 mls/hr Q1H PRN IV hypotension; Start 06/02/21 at 14:15; Stop 06/02/21 at 20:14; Status DC Albumin Human 100 ml @ 200 mls/hr 1X PRN PRN IV Hypotension Last administered on 06/02/21at 15:00; Start 06/02/21 at 14:15; Stop 06/02/21 at 20:14; Status DC Sodium Chloride 1,000 ml @ 400 mls/hr Q2H30M PRN IV PATENCY; Start 06/02/21 at 14:15; Stop 06/03/21 at 02:14; Status DC Info (PHARMACY MONITORING -- do not chart) 1 each PRN DAILY PRN MC SEE COMMENTS; Start 06/02/21 at 14:15; Status Cancel Info (PHARMACY MONITORING -- do not chart) 1 each PRN DAILY PRN MC SEE COMMENTS; Start 06/02/21 at 14:15; Status Cancel Sodium Chloride 1,000 ml @ 1,000 mls/hr Q1H PRN IV hypotension; Start 06/04/21 at 08:15; Stop 06/04/21 at 14:14; Status DC Albumin Human 200 ml @ 200 mls/hr 1X PRN PRN IV Hypotension; Start 06/04/21 at 08:15; Stop 06/04/21 at 14:14; Status DC Sodium Chloride (Normal Saline Flush) 10 ml 1X PRN PRN IV AP catheter pack; Start 06/04/21 at 08:15; Stop 06/05/21 at 08:14; Status DC Sodium Chloride (Normal Saline Flush) 10 ml 1X PRN PRN IV CORRECTIONAL PROGRAM SPECIALIST catheter pack; Start 06/04/21 at 08:15; Stop 06/05/21 at 08:14; Status DC Sodium Chloride 1,000 ml @ 400 mls/hr Q2H30M PRN IV PATENCY; Start 06/04/21 at 08:15; Stop 06/04/21 at 20:14; Status DC Info (PHARMACY MONITORING -- do not chart) 1 each PRN DAILY PRN MC SEE COMMENTS; Start 06/04/21 at 08:15; Status UNV Info (PHARMACY MONITORING -- do not chart) 1 each PRN DAILY PRN MC SEE COMMENTS; Start 06/04/21 at 08:15; Stop 06/09/21 at 07:47; Status DC Sodium Chloride 1,000 ml @ 1,000 mls/hr Q1H PRN IV hypotension; Start 06/07/21 at 09:15; Stop 06/07/21 at 15:14; Status DC Albumin Human 200 ml @ 200 mls/hr 1X PRN PRN IV Hypotension; Start 06/07/21 at 09:15; Stop 06/07/21 at 15:14; Status DC Sodium Chloride 1,000 ml @ 400 mls/hr Q2H30M PRN IV PATENCY; Start 06/07/21 at 09:15; Stop 06/07/21 at 21:14; Status DC Info (PHARMACY MONITORING -- do not chart) 1 each PRN DAILY PRN MC SEE COMMENTS; Start 06/07/21 at 09:15; Status UNV Heparin Sodium/ Sodium Chloride (HEPARIN for ARTERIAL LINE FLUSH) 1,000 unit 1X ONCE IART Last administered on 06/07/21at 15:10; Start 06/07/21 at 14:45; Stop 06/07/21 at 14:46; Status DC Heparin Sodium/ Sodium Chloride (HEPARIN for ARTERIAL LINE FLUSH) 1,000 unit 1X ONCE IART Last administered on 06/07/21at 15:10; Start 06/07/21 at 14:45; Stop 06/07/21 at 14:46; Status DC Midazolam HCl (Versed) 2 mg 1X ONCE IV Last administered on 06/07/21at 15:18; Start 06/07/21 at 14:45; Stop 06/07/21 at 14:46; Status DC Fentanyl Citrate (Fentanyl 2ml Vial) 100 mcg 1X ONCE IV Last administered on 06/07/21at 15:28; Start 06/07/21 at 14:45; Stop 06/07/21 at 14:46; Status DC Iodixanol (Visipaque 320) 100 ml 1X ONCE IART Last administered on 06/07/21at 15:10; Start 06/07/21 at 14:45; Stop 06/07/21 at 14:46; Status DC Lidocaine HCl (Lidocaine 1% 20ml Vial) 20 ml 1X ONCE INJ Last administered on 06/07/21at 15:11; Start 06/07/21 at 14:45; Stop 06/07/21 at 14:46; Status DC Iodixanol (Visipaque 320) 100 ml STK-MED ONCE .ROUTE ; Start 06/07/21 at 11:49; Stop 06/08/21 at 13:36; Status DC Heparin Sodium/ Sodium Chloride 500 ml @ As Directed STK-MED ONCE .ROUTE ; Start 06/07/21 at 11:49; Stop 06/08/21 at 13:36; Status DC Lidocaine HCl (Lidocaine 1% 20ml Vial) 20 ml STK-MED ONCE .ROUTE ; Start 06/07/21 at 12:03; Stop 06/08/21 at 13:37; Status DC Heparin Sodium/ Sodium Chloride 1,000 ml @ As Directed STK-MED ONCE .ROUTE ; Start 06/07/21 at 12:03; Stop 06/08/21 at 13:37; Status DC Midazolam HCl (Versed) 2 mg STK-MED ONCE .ROUTE ; Start 06/07/21 at 14:14; Stop 06/08/21 at 13:38; Status DC Fentanyl Citrate (Fentanyl 2ml Vial) 100 mcg STK-MED ONCE .ROUTE ; Start 06/07/21 at 14:15; Stop 06/08/21 at 13:38; Status DC Heparin Sodium (Porcine) (Heparin Sodium) 10,000 unit STK-MED ONCE .ROUTE ; Start 06/07/21 at 14:15; Stop 06/08/21 at 13:38; Status DC Cefazolin Sodium 1 gm/Sodium Chloride 500 ml @ 500 mls/hr 1X ONCE IRR ; Start 06/09/21 at 06:00; Stop 06/09/21 at 07:00; Status DC Fentanyl Citrate (Fentanyl 2ml Vial) 25 mcg PRN Q5MIN PRN IVP MILD PAIN 1-3; Start 06/09/21 at 06:00; Stop 06/09/21 at 17:24; Status DC Fentanyl Citrate (Fentanyl 2ml Vial) 50 mcg PRN Q5MIN PRN IVP MODERATE PAIN 4- 6; Start 06/09/21 at 06:00; Stop 06/09/21 at 17:24; Status DC Morphine Sulfate (Morphine Sulfate) 1 mg PRN Q10MIN PRN IVP SEVERE PAIN 7-10; Start 06/09/21 at 06:00; Stop 06/09/21 at 17:24; Status DC Ringer's Solution 1,000 ml @ 30 mls/hr Q24H IV ; Start 06/09/21 at 06:00; Stop 06/09/21 at 17:24; Status DC Hydromorphone HCl (Dilaudid) 0.5 mg PRN Q10MIN PRN IVP SEVERE PAIN 7-10, 2nd CHOICE; Start 06/09/21 at 06:00; Stop 06/09/21 at 17:24; Status DC Prochlorperazine Edisylate (Compazine) 5 mg PACU PRN PRN IVP NAUSEA, MRX1; Start 06/09/21 at 06:00; Stop 06/09/21 at 17:25; Status DC Sodium Chloride 1,000 ml @ 1,000 mls/hr Q1H PRN IV hypotension; Start 06/09/21 at 07:45; Stop 06/09/21 at 13:44; Status DC Sodium Chloride 1,000 ml @ 400 mls/hr Q2H30M PRN IV PATENCY; Start 06/09/21 at 07:45; Stop 06/09/21 at 19:44; Status DC Info (PHARMACY MONITORING -- do not chart) 1 each PRN DAILY PRN MC SEE COMMENTS; Start 06/09/21 at 07:45; Stop 06/09/21 at 07:48; Status DC Info (PHARMACY MONITORING -- do not chart) 1 each PRN DAILY PRN MC SEE COMM ENTS; Start 06/09/21 at 07:45; Status Cancel Sodium Chloride 1,000 ml @ 1,000 mls/hr Q1H PRN IV hypotension; Start 06/11/21 at 08:45; Stop 06/11/21 at 14:44; Status DC Sodium Chloride (Normal Saline Flush) 10 ml 1X PRN PRN IV AP catheter pack; Start 06/11/21 at 08:45; Stop 06/12/21 at 08:44; Status DC Sodium Chloride (Normal Saline Flush) 10 ml 1X PRN PRN IV CORRECTIONAL PROGRAM SPECIALIST catheter pack; Start 06/11/21 at 08:45; Stop 06/12/21 at 08:44; Status DC Info (PHARMACY MONITORING -- do not chart) 1 each PRN DAILY PRN MC SEE COMMENTS; Start 06/11/21 at 08:45; Status UNV Info (PHARMACY MONITORING -- do not chart) 1 each PRN DAILY PRN MC SEE COMM ENTS; Start 06/11/21 at 08:45; Status Cancel Sodium Hypochlorite (Dakin'S 1/4 Strength) 1 lópez QODAY TP Last administered on 06/24/21at 08:59; Start 06/12/21 at 08:00 Vancomycin HCl (Vancomycin Random Level) 1 each 1X ONCE MC ; Start 06/14/21 at 06:00; Stop 06/14/21 at 06:01; Status DC Sodium Chloride 1,000 ml @ 1,000 mls/hr Q1H PRN IV hypotension; Start 06/14/21 at 08:00; Stop 06/14/21 at 13:59; Status DC Albumin Human 100 ml @ 200 mls/hr 1X PRN PRN IV Hypotension Last administered on 06/14/21at 10:45; Start 06/14/21 at 08:00; Stop 06/14/21 at 13:59; Status DC Sodium Chloride 1,000 ml @ 400 mls/hr Q2H30M PRN IV PATENCY; Start 06/14/21 at 08:00; Stop 06/14/21 at 19:59; Status DC Info (PHARMACY MONITORING -- do not chart) 1 each PRN DAILY PRN MC SEE COMMENTS; Start 06/14/21 at 08:00; Status UNV Info (PHARMACY MONITORING -- do not chart) 1 each PRN DAILY PRN MC SEE COMMENTS; Start 06/14/21 at 08:00; Status Cancel Cefazolin Sodium 1 gm/Sodium Chloride 500 ml @ 500 mls/hr 1X ONCE IRR Last administered on 06/15/21at 12:02; Start 06/15/21 at 06:00; Stop 06/15/21 at 07:00; Status DC Fentanyl Citrate (Fentanyl 2ml Vial) 25 mcg PRN Q5MIN PRN IVP MILD PAIN 1-3; Start 06/15/21 at 06:00; Stop 06/16/21 at 05:59; Status DC Fentanyl Citrate (Fentanyl 2ml Vial) 50 mcg PRN Q5MIN PRN IVP MODERATE PAIN 4-6 Last administered on 06/15/21at 13:25; Start 06/15/21 at 06:00; Stop 06/16/21 at 05:59; Status DC Morphine Sulfate (Morphine Sulfate) 1 mg PRN Q10MIN PRN IVP SEVERE PAIN 7-10; Start 06/15/21 at 06:00; Stop 06/16/21 at 05:59; Status DC Ringer's Solution 1,000 ml @ 30 mls/hr Q24H IV ; Start 06/15/21 at 06:00; Stop 06/15/21 at 17:59; Status DC Hydromorphone HCl (Dilaudid) 0.5 mg PRN Q10MIN PRN IVP SEVERE PAIN 7-10, 2nd CHOICE; Start 06/15/21 at 06:00; Stop 06/16/21 at 05:59; Status DC Prochlorperazine Edisylate (Compazine) 5 mg PACU PRN PRN IVP NAUSEA, MRX1; Start 06/15/21 at 06:00; Stop 06/16/21 at 05:59; Status DC Sodium Chloride 1,000 ml @ 30 mls/hr Q24H IV Last administered on 06/15/21at 10:00; Start 06/15/21 at 10:00; Stop 06/16/21 at 16:10; Status DC Oxycodone/ Acetaminophen (Percocet 5/325) 1 tab PRN Q4HRS PRN PO PAIN Last administered on 06/17/21at 11:56; Start 06/15/21 at 11:45 Hydromorphone HCl (Dilaudid) 0.2 mg PRN Q4HRS PRN IVP PAIN Last administered on 06/18/21at 12:31; Start 06/15/21 at 11:45 Oxycodone/ Acetaminophen (Percocet 5/325) 2 tab PRN Q4HRS PRN PO BREAKTHROUGH PAIN Last administered on 06/24/21at 20:41; Start 06/15/21 at 12:00 Vancomycin HCl (Vancomycin Random Level) 1 each 1X ONCE MC Last administered on 06/18/21at 05:00; Start 06/18/21 at 05:00; Stop 06/18/21 at 05:01; Status DC Sodium Chloride 1,000 ml @ 1,000 mls/hr Q1H PRN IV hypotension; Start 06/16/21 at 16:00; Stop 06/16/21 at 21:59; Status DC Sodium Chloride 1,000 ml @ 400 mls/hr Q2H30M PRN IV PATENCY; Start 06/16/21 at 16:00; Stop 06/17/21 at 03:59; Status DC Info (PHARMACY MONITORING -- do not chart) 1 each PRN DAILY PRN MC SEE COMMENTS; Start 06/16/21 at 16:00; Status Cancel Sodium Chloride 1,000 ml @ 1,000 mls/hr Q1H PRN IV hypotension; Start 06/16/21 at 18:30; Stop 06/17/21 at 00:29; Status DC Albumin Human 200 ml @ 200 mls/hr 1X PRN PRN IV Hypotension; Start 06/16/21 at 18:30; Stop 06/17/21 at 00:29; Status DC Sodium Chloride (Normal Saline Flush) 10 ml 1X PRN PRN IV AP catheter pack; Start 06/16/21 at 18:30; Stop 06/17/21 at 18:29; Status DC Sodium Chloride (Normal Saline Flush) 10 ml 1X PRN PRN IV CORRECTIONAL PROGRAM SPECIALIST catheter pack; S tart 06/16/21 at 18:30; Stop 06/17/21 at 18:29; Status DC Sodium Chloride 1,000 ml @ 400 mls/hr Q2H30M PRN IV PATENCY; Start 06/16/21 at 18:30; Stop 06/17/21 at 06:29; Status DC Info (PHARMACY MONITORING -- do not chart) 1 each PRN DAILY PRN MC SEE COMMENTS ; Start 06/16/21 at 18:30; Status UNV Info (PHARMACY MONITORING -- do not chart) 1 each PRN DAILY PRN MC SEE COMMENTS; Start 06/16/21 at 18:30; Stop 06/21/21 at 13:23; Status DC Midodrine (Proamatine) 2.5 mg [id number] PO Last administered on 06/25/21at 14:20; Start 06/17/21 at 18:00 Sodium Chloride 1,000 ml @ 1,000 mls/hr Q1H PRN IV hypotension; Start 06/18/21 at 08:00; Stop 06/18/21 at 13:59; Status DC Sodium Chloride 1,000 ml @ 400 mls/hr Q2H30M PRN IV PATENCY; Start 06/18/21 at 08:00; Stop 06/18/21 at 19:59; Status DC Info (PHARMACY MONITORING -- do not chart) 1 each PRN DAILY PRN MC SEE COMMENTS; Start 06/18/21 at 08:00; Status Cancel Propofol (Diprivan) 200 mg STK-MED ONCE IV ; Start 06/15/21 at 10:53; Stop 06/18/21 at 12:36; Status DC Lidocaine HCl (Xylocaine-Mpf 1% 5ml Vial) 5 ml STK-MED ONCE .ROUTE ; Start 06/15/21 at 10:53; Stop 06/18/21 at 12:36; Status DC Fentanyl Citrate (Fentanyl 2ml Vial) 100 mcg STK-MED ONCE .ROUTE ; Start 06/15/21 at 10:53; Stop 06/18/21 at 12:36; Status DC Ephedrine Sulfate (Akovaz) 50 mg STK-MED ONCE .ROUTE ; Start 06/15/21 at 12:18; Stop 06/18/21 at 12:36; Status DC Phenylephrine HCl (PHENYLEPHRINE in 0.9% NACL PF) 1 mg STK-MED ONCE IV ; Start 06/15/21 at 12:18; Stop 06/18/21 at 12:36; Status DC Glycopyrrolate (Robinul) 1 mg STK-MED ONCE .ROUTE ; Start 06/15/21 at 12:38; Stop 06/18/21 at 12:36; Status DC Fentanyl Citrate (Fentanyl 2ml Vial) 100 mcg STK-MED ONCE .ROUTE ; Start 06/15/21 at 13:22; Stop 06/18/21 at 12:36; Status DC Vancomycin HCl (Vancomycin Random Level) 1 each 1X ONCE MC ; Start 06/21/21 at 06:00; Stop 06/19/21 at 12:13; Status DC Sodium Chloride 1,000 ml @ 1,000 mls/hr Q1H PRN IV hypotension; Start 06/21/21 at 08:00; Stop 06/21/21 at 13:59; Status DC Albumin Human 200 ml @ 200 mls/hr 1X PRN PRN IV Hypotension; Start 06/21/21 at 08:00; Stop 06/21/21 at 13:59; Status DC Sodium Chloride (Normal Saline Flush) 10 ml 1X PRN PRN IV AP catheter pack; Start 06/21/21 at 08:00; Stop 06/22/21 at 07:59; Status DC Sodium Chloride (Normal Saline Flush) 10 ml 1X PRN PRN IV CORRECTIONAL PROGRAM SPECIALIST catheter pack; Start 06/21/21 at 08:00; Stop 06/22/21 at 07:59; Status DC Sodium Chloride 1,000 ml @ 400 mls/hr Q2H30M PRN IV PATENCY; Start 06/21/21 at 08:00; Stop 06/21/21 at 19:59; Status DC Info (PHARMACY MONITORING -- do not chart) 1 each PRN DAILY PRN MC SEE COMMENTS; Start 06/21/21 at 08:00; Status UNV Info (PHARMACY MONITORING -- do not chart) 1 each PRN DAILY PRN MC SEE COMMENTS; Start 06/21/21 at 08:00; Status Cancel Pregabalin (Lyrica) 150 mg BID PO Last administered on 06/26/21at 08:27; Start 06/22/21 at 21:00 Sodium Chloride 1,000 ml @ 1,000 mls/hr Q1H PRN IV hypotension; Start 06/23/21 at 08:30; Stop 06/23/21 at 14:29; Status DC Sodium Chloride 1,000 ml @ 400 mls/hr Q2H30M PRN IV PATENCY; Start 06/23/21 at 08:30; Stop 06/23/21 at 20:29; Status DC Info (PHARMACY MONITORING -- do not chart) 1 each PRN DAILY PRN MC SEE COMMENTS; Start 06/23/21 at 08:30 Multi-Ingredient Ointment (Hydrocerin, Eucerin Cream) 1 lópez BID TP Last administered on 06/26/21at 08:29; Start 06/23/21 at 11:00 Mupirocin (Bactroban) 1 lópez BID TP Last administered on 06/26/21at 08:29; Start 06/23/21 at 11:00 Sodium Chloride 1,000 ml @ 1,000 mls/hr Q1H PRN IV hypotension; Start 06/25/21 at 08:00; Stop 06/25/21 at 13:59; Status DC Sodium Chloride (Normal Saline Flush) 10 ml 1X PRN PRN IV AP catheter pack; Start 06/25/21 at 08:00; Stop 06/26/21 at 07:59; Status DC Sodium Chloride (Normal Saline Flush) 10 ml 1X PRN PRN IV [employer] catheter pack; Start 06/25/21 at 08:00; Stop 06/26/21 at 07:59; Status DC Active Scripts Active Metoprolol Succinate 50 Mg Tab.er.24h 50 Mg PO DAILY 30 Days Levetiracetam 500 Mg Tablet 500 Mg PO BID 30 Days Reported Trazodone Hcl 50 Mg Tablet 1 Tab PO QHS Xultophy 100 Unit-3.6 mg/ml (Insulin Degludec/Liraglutide) 3 Ml Insuln.pen 24 Ml SQ HS Vitamin D (Cholecalciferol (Vitamin D3)) 1,000 Unit Capsule 1 Cap PO DAILY Atorvastatin Calcium 10 Mg Tablet 10 Mg PO DAILY Sildenafil (Sildenafil Citrate) 20 Mg Tablet 20 Mg PO TID Zetia (Ezetimibe) 10 Mg Tablet 10 Mg PO DAILY Omeprazole 40 Mg Capsule.dr 40 Mg PO DAILY Topiramate 100 Mg Tablet 100 Mg PO BID Promethazine Hcl 25 Mg Tablet 25 Mg PO Q6H PRN B-12 (Cyanocobalamin (Vitamin B-12)) 1,000 Mcg Tablet 1,000 Mcg PO DAILY Vascepa (Icosapent Ethyl) 1 Gm Capsule 2 Cap PO BID Aspirin Ec (Aspirin) 81 Mg Tablet.dr 81 Mg PO DAILY Duloxetine Hcl 60 Mg Capsule.dr 60 Mg PO HS Lyrica (Pregabalin) 225 Mg Capsule 225 Mg PO BID Losartan-Hctz 100-25 Mg Tab (Losartan/Hydrochlorothiazide) 1 Each Tablet 25 Mg PO DAILY Mirtazapine 45 Mg Tablet 45 Mg PO HS Amlodipine Besylate 5 Mg Tablet 5 Mg PO DAILY Vitals/I & O Vital Sign - Last 24 Hours 06/25/21 06/25/21 06/25/21 06/25/21 14:20 14:21 15:00 18:00 Temp 97.7 97.7 Pulse 55 55 64 79 Resp 16 B/P (MAP) 102/59 102/59 85/56 (66) 135/84 Pulse Ox 96 O2 Delivery Room Air 06/25/21 06/25/21 06/25/21 06/26/21 19:00 20:00 23:00 03:00 Temp 97.5 98.2 98.9 97.5 98.2 98.9 Pulse 46 62 74 Resp 18 18 18 B/P (MAP) 88/41 (57) 125/72 (89) 125/76 (92) Pulse Ox 97 100 99 O2 Delivery Room Air Room Air Room Air Room Air O2 Flow Rate 2.0 06/26/21 06/26/21 06/26/21 07:00 07:46 08:28 Pulse 74 74 B/P (MAP) 113/63 113/63 (80) 113/63 Intake and Output 06/25/21 06/25/21 06/26/21 15:00 23:00 07:00 Intake Total 240 ml 200 ml Balance 240 ml 200 ml TAMRA ABRAHAM MD Jun 26, 2021 10:13
--- NOTE | 2021-06-26 11:23 | PDOC ---
Renal-Progress Notes Subjective Notes Notes NONE History of Present Illness Hx of present illness STABLE Vitals Vitals Vital Signs Date Time Temp Pulse Resp B/P (MAP) Pulse Ox O2 Delivery O2 Flow Rate FiO2 06/26/21 08:28 74 113/63 06/26/21 03:00 98.9 18 99 Room Air 98.9 06/25/21 20:00 2.0 Weight Weight [ ] I.O. Intake and Output Intake and Output 06/26/21 07:00 Intake Total 440 ml Balance 440 ml Intake Oral 440 ml # Voids 1 Labs Labs Laboratory Tests Test 06/25/21 13:21 06/25/21 16:18 06/25/21 20:52 06/26/21 07:53 Glucose (Fingerstick) 133 mg/dL (70-99) 166 mg/dL (70-99) 170 mg/dL (70-99) 248 mg/dL (70-99) Micro Micro Microbiology 05/28/21 Gram Stain - Final, Complete 05/28/21 Aerobic and Anaerobic Culture - Final, Complete 05/28/21 Antimicrobic Susceptibility - Final, Complete 05/26/21 Blood Culture - Final, Complete NO GROWTH AFTER 5 DAYS Review of Systems Constitutional: yes: weakness, alert, oriented, other Ears/Nose/Throat: Yes: no symptom reported Eyes: Yes: no symptom reported Pulmonary: Yes no symptom reported Cardiovascular: Yes no symptom reported Gastrointestional: Yes: constipation Genitourinary: Yes: no symptom reported Musculoskeletal: Yes: leg pain, foot pain Skin: Yes no symptom reported Psychiatric/Neurological: Yes: depressed Endocrine: Yes: no symptom reported Hematologic/Lymphatic: Yes: no symptom reported Physical Exam General Appearance: no apparent distress Skin: warm Respiratory: decreased breath sounds Heart: S1S2 Abdomen: soft, bowel sounds present Genitourinary: bladder flat Neurology: alert, oriented, follow commands Assessment Assessment IMP ESRD-MWF ANEMIA DM II-LABILE BG ENCEPHALOPATHY-RESOLVED HTN HX LEFT TMA STUMP WOUND PROB SEPSIS HYPOTENSION-CORRECTED MALNUTRITION CARDIAC ARRHYTHMIA S/P L BKA PLAN HD MWF CONT MIDODRINE VINNIE NEEDED WOUND CARE AWAITING TRANSFER TO [facility] WILL FOLLOW NUBIA PATTON MD Jun 26, 2021 11:23
--- NOTE | 2021-06-26 17:43 | PDOC ---
CARDIOLOGY PROGRESS NOTE SUBJECTIVE: No acute events overnight. The patient denies any chest pain OBJECTIVE: Vital Signs/I&O: Vital Signs Date Time Temp Pulse Resp B/P (MAP) Pulse Ox O2 Delivery O2 Flow Rate FiO2 06/26/21 17:14 66 113/66 06/26/21 15:00 98.0 18 95 Room Air 98.0 06/25/21 20:00 2.0 I & O 06/25/21 06/25/21 06/26/21 15:00 23:00 07:00 Intake Total 240 ml 200 ml Balance 240 ml 200 ml Objective: No significant changes to exam Heart and lung tones are within normal limits Left lower extremity knee amputation is unchanged. Incisions appear to be clean, dry and intact. Patient has no significant right lower extremity edema No focal neurologic deficits CURRENT MEDICATIONS: Medications reviewed. DIAGNOSTIC TESTING: Labs: Laboratory Tests Test 06/25/21 20:52 06/26/21 07:53 06/26/21 11:39 06/26/21 16:29 Glucose (Fingerstick) 170 mg/dL (70-99) H 248 mg/dL (70-99) H 131 mg/dL (70-99) H 196 mg/dL (70-99) H ASSESSMENT: 1. COVID +: off quarantine, doing well 2. Acute encephalopathy: resolved 3. ESRD on HD 4. AFIB: rate controlled in atrial flutter. stable 5. CAD: s/p CABG. unclear if any recent w/u, clinically stable 6. HTN; controlled overall 7. DM2 8. S/P LBKA 9. Anemia: s/p transfusion. 10. Sepsis 11. Hx of mild CM: Limited echo with EF 30-35%, compensated 12. Mild to moderate , moderate to severe TR. Estimated PAP 60 mmHg. 13. Severe LLE PAD: Abdominal aortogram revealed no significant aortoiliac disease bilaterally and moderate diffuse 50 to 60% stenosis involving the SFA with one-vessel runoff bilaterally. Recommendations Continued metoprolol for rate control Poor candidate for anticoagulation with anemia and prior hx of SDH. Continue baby ASA for stroke prevention Secondary prevention measures Fluid offloading via HD Supportive care. Outpt ischemic workup Awaiting rehab placement Justicifation of Admission Dx: Justifications for Admission: Justification of Admission Dx: N/A CARRIE MCCLAIN MD Jun 26, 2021 17:43
[2021-06-26] MEDS ORDERED: MIDODRINE 2.5 MG TABLET PO ONE (20:45)
[2021-06-26] MEDS: traZODone 50 MG TABLET. PO SCH (21:00)
[2021-06-26] MEDS: MIRTAZAPINE 15 MG TABLET PO SCH (23:26)
[2021-06-26] MEDS: DULoxetine HCL 30 MG CAPSULE.DR PO SCH (23:26)
[2021-06-27 03:00] VITALS: BP 122/64
[2021-06-27] MEDS: MIDODRINE 2.5 MG TABLET PO SCH (06:18)
[2021-06-27] MEDS: PANTOPRAZOLE 40 MG TABLET.DR. PO SCH (06:18)
[2021-06-27 07:00] VITALS: BP 113/62
[2021-06-27] MEDS: INSULIN LISPRO 300 UNITS/3 ML VIAL. SQ SCH ×2 (08:21→12:36)
[2021-06-27] MEDS: METOPROLOL SUCC 24HR ER 50 MG TAB.ER.24H. PO SCH (09:00)
[2021-06-27] MEDS: ASPIRIN ENTERIC COATED 81 MG TABLET.DR. PO SCH (09:01)
[2021-06-27] MEDS: ATORVASTATIN CALCIUM 10 MG TABLET. PO SCH (09:01)
[2021-06-27] MEDS: levETIRAcetam 500 MG TABLET PO SCH (09:01)
[2021-06-27] MEDS: TOPIRAMATE 100 MG TABLET. PO SCH (09:01)
[2021-06-27] MEDS: CHOLECALCIFEROL (VITAMIN D3) 1,000 UNIT TABLET PO SCH (09:01)
[2021-06-27] MEDS: EZETIMIBE 10 MG TABLET. PO SCH (09:01)
[2021-06-27] MEDS: LACTOBACILLUS RHAMNOSUS GG 1 CAPSULE. PO SCH (09:01)
[2021-06-27] MEDS: PREGABALIN 75 MG CAPSULE PO SCH (09:02)
[2021-06-27] MEDS: CYANOCOBALAMIN (VITAMIN B-12) 1,000 MCG TABLET. PO SCH (09:02)
[2021-06-27] MEDS: MINERAL OIL/PETROLATUM TOPICAL CREAM 113GM JAR. TP SCH (09:06)
[2021-06-27] MEDS: MUPIROCIN 2 % OINTMENT 22GM TUBE. TP SCH (09:06)
[2021-06-27] MEDS ORDERED: MIDODRINE 2.5 MG TABLET PO PRN (09:45)
--- NOTE | 2021-06-27 10:39 | SNU/HH DC ---
DISCHARGE ORDERS DISCHARGE INFORMATION: DISCHARGE DATE: Jun 27, 2021 FINAL DIAGNOSIS Problems Medical Problems: (1) Altered mental status Status: Acute (2) COVID-19 Status: Acute (3) Draining postoperative wound Status: Acute (4) ESRD (end stage renal disease) on dialysis Status: Acute (5) Severe anemia Status: Acute CONDITION ON DISCHARGE: Stable CODE STATUS: Code Status: Full LONG-TERM: SNF STAY <30 DAYS: Yes POST DISCHARGE ORDERS: ACTIVITY ORDERS: No restrictions, Activity as tolerated WEIGHT BEARING STATUS: No restrictions DIET AFTER DISCHARGE: Renal CHECKS AFTER DISCHARGE: CHECKS AFTER DISCHARGE: Check blood press - daily, Weigh Yourself Daily TREATMENT/EQUIPMENT ORDERS: Physical Therapy For: Evalulation/Treatment Occupational Therapy For: Evaluation/Treatment DISCHARGE MEDICATIONS: Home Meds Active Scripts Metoprolol Succinate (Metoprolol Succinate) 50 Mg Tab.er.24h, 50 MG PO DAILY for 30 Days, TAB 6 Refills Prov:KESHAWN DE JESUS MD 08/30/16 Levetiracetam (LEVETIRACETAM) 500 Mg Tablet, 500 MG PO BID for 30 Days, TAB 6 Re fills Prov:KESHAWN DE JESUS MD 08/29/16 Reported Medications Trazodone Hcl (TRAZODONE HCL) 50 Mg Tablet, 1 TAB PO QHS, #30 TAB 1 Refill 09/11/17 Insulin Degludec/Liraglutide (Xultophy 100 Unit-3.6 mg/ml) 3 Ml Insuln.pen, 24 ML SQ HS, EACH 09/11/17 Cholecalciferol (Vitamin D3) (VITAMIN D) 1,000 Unit Capsule, 1 CAP PO DAILY, #30 CAP 3 Refills 08/07/17 Atorvastatin Calcium (ATORVASTATIN CALCIUM) 10 Mg Tablet, 10 MG PO DAILY for FOR CHOLESTEROL, #30 TAB 0 Refills 08/07/17 Sildenafil Citrate (SILDENAFIL) 20 Mg Tablet, 20 MG PO TID for PULMONARY HYPERTENSION, TAB 08/07/17 Ezetimibe (ZETIA) 10 Mg Tablet, 10 MG PO DAILY, TAB 08/07/17 Omeprazole (OMEPRAZOLE) 40 Mg Capsule.dr, 40 MG PO DAILY, CAP 08/07/17 Topiramate (TOPIRAMATE) 100 Mg Tablet, 100 MG PO BID, TAB 08/07/17 Promethazine Hcl (PROMETHAZINE HCL) 25 Mg Tablet, 25 MG PO Q6H PRN for NAUSEA/VOMITING, TAB 08/07/17 Cyanocobalamin (Vitamin B-12) (B-12) 1,000 Mcg Tablet, 1000 MCG PO DAILY 08/26/16 Icosapent Ethyl (VASCEPA) 1 Gm Capsule, 2 CAP PO BID, #120 08/26/16 Aspirin (ASPIRIN EC) 81 Mg Tablet.dr, 81 MG PO DAILY 08/26/16 Duloxetine Hcl (DULOXETINE HCL) 60 Mg Capsule.dr, 60 MG PO HS, #30 08/26/16 Pregabalin (LYRICA) 225 Mg Capsule, 225 MG PO BID, #60 08/26/16 Losartan/Hydrochlorothiazide (LOSARTAN-HCTZ 100-25 MG TAB) 1 Each Tablet, 25 MG PO DAILY, #30 08/26/16 Mirtazapine (MIRTAZAPINE) 45 Mg Tablet, 45 MG PO HS, #30 08/26/16 Amlodipine Besylate (AMLODIPINE BESYLATE) 5 Mg Tablet, 5 MG PO DAILY, #30 08/26/16 KAHLIL WADE MD Jun 27, 2021 10:39
--- NOTE | 2021-06-27 10:41 | PDOC ---
Renal-Progress Notes Subjective Notes Notes NO NEW COMPLAINTS History of Present Illness Hx of present illness STABLE Vitals Vitals Vital Signs Date Time Temp Pulse Resp B/P (MAP) Pulse Ox O2 Delivery O2 Flow Rate FiO2 06/27/21 07:00 96.8 61 16 113/62 (79) 93 Room Air 96.8 Weight Weight [ ] I.O. Intake and Output Intake and Output 06/27/21 07:00 Intake Total 200 ml Output Total 0 ml Balance 200 ml Intake Oral 200 ml Output Urine Total 0 ml # Voids 1 Labs Labs Laboratory Tests Test 06/26/21 11:39 06/26/21 16:29 06/26/21 20:09 06/27/21 07:13 Glucose (Fingerstick) 131 mg/dL (70-99) 196 mg/dL (70-99) 266 mg/dL (70-99) 179 mg/dL (70-99) Test 06/27/21 08:02 Glucose (Fingerstick) 184 mg/dL (70-99) Micro Micro Microbiology 05/28/21 Gram Stain - Final, Complete 05/28/21 Aerobic and Anaerobic Culture - Final, Complete 05/28/21 Antimicrobic Susceptibility - Final, Complete 05/26/21 Blood Culture - Final, Complete NO GROWTH AFTER 5 DAYS Review of Systems Constitutional: yes: weakness, alert, oriented, other Ears/Nose/Throat: Yes: no symptom reported Eyes: Yes: no symptom reported Pulmonary: Yes no symptom reported Cardiovascular: Yes no symptom reported Gastrointestional: Yes: constipation Genitourinary: Yes: no symptom reported Musculoskeletal: Yes: leg pain, foot pain Skin: Yes no symptom reported Psychiatric/Neurological: Yes: depressed Endocrine: Yes: no symptom reported Hematologic/Lymphatic: Yes: no symptom reported Physical Exam General Appearance: no apparent distress Skin: warm Respiratory: decreased breath sounds Heart: S1S2 Abdomen: soft, bowel sounds present Genitourinary: bladder flat Neurology: alert, oriented, follow commands Assessment Assessment IMP ESRD-MWF ANEMIA DM II-LABILE BG ENCEPHALOPATHY-RESOLVED HTN HX LEFT TMA STUMP WOUND PROB SEPSIS HYPOTENSION-CORRECTED MALNUTRITION CARDIAC ARRHYTHMIA S/P L BKA PLAN HD TOMORROW VINNIE NEEDED WOUND CARE AWAITING TRANSFER TO [facility] WILL FOLLOW NUBIA PATTON MD Jun 27, 2021 10:41
[2021-06-27 11:00] VITALS: BP 106/56
[2021-06-27 15:00] VITALS: BP 118/69
--- NOTE | 2021-06-27 17:10 | NUR ---
PATIENT LEAVES THE UNIT PER STRETCHER AND ACCOMPANIED BY [facility], EMOTIONAL SUPPORT GIVEN, PATIENTS' MOTHER ELTON INFORMED OF DISCHARGE.
--- NOTE | 2021-06-27 20:51 | PN ---
DATE: 06/27/2021 SUBJECTIVE: The patient is sitting, propped up in bed, eating his breakfast comfortably, in no apparent distress. On questioning him, he denied any complaint. The nursing staff did not voice any concern, stated that he had an eventful night. PHYSICAL EXAMINATION: GENERAL: When I examined him, he looked well and was clearly in no apparent respiratory distress, pale, somewhat cachectic, but not jaundiced or cyanosed. No lymphadenopathy, no thyromegaly, no jugular venous distention. No lower limb edema. VITAL SIGNS: His heart rate was 61, blood pressure was 113/62, temperature 96.8, respiratory rate was 16 and oxygen saturation was 93% on room air. Rest of clinical exam stable. EXTREMITIES: He has left below-knee amputation with the stump wound healing nicely. No redness, tenderness or discharge. His gopi are still in place. His intake was 440, no output was recorded. LABORATORY DATA: No lab work available this morning. ASSESSMENT: 1. Severe peripheral vascular disease, status post left transmetatarsal amputation followed by the right below-knee amputation. 2. The patient has asymptomatic COVID-19 infection. He is now off the isolation. 3. The patient has end-stage renal disease, on hemodialysis Monday, Monday, Monday. 4. Type 1 diabetes mellitus with multiple complications. 5. Atrial fibrillation, rate controlled, not anticoagulated. 6. Coronary artery disease, status post coronary artery bypass graft surgery. 7. Ischemic cardiomyopathy. 8. Hypertension. 9. Cerebrovascular accident. 10. Peripheral neuropathy. 11. History of chronic subdural hematoma, it has apparently resolved. 12. Seizure disorder. 13. Metabolic encephalopathy, it has mostly resolved. PLAN: To continue with wound care. Continue with hemodialysis. Continue with pain management. Continue with midodrine for hypotension. Continue with Keppra for seizure disorder. Continue with Epogen for anemia of chronic kidney disease. Continue to monitor his blood sugar and adjust insulin as needed. Continue with DVT and GI prophylaxis. Continue with physical and occupational therapy. He is apparently accepted at [facility] awaiting the insurance approval. CHERYL/JAVAD/MARTÍNEZ DR: Tyler TID: [id number]
--- NOTE | 2021-06-28 04:58 | PN ---
DATE: 06/27/2021 SUBJECTIVE: No acute events overnight. The patient denies any current chest pain or dyspnea. He is resting comfortably in bed today. He is looking forward to going to rehab. OBJECTIVE: VITAL SIGNS: Stable. HEAD AND NECK: Unremarkable. CARDIAC: Heart tones are irregular. No obvious murmurs, rubs or gallops. LUNGS: Clear to auscultation. EXTREMITIES: No lower extremity edema. DIAGNOSTIC STUDIES: Reviewed. MEDICATIONS: Reviewed. ASSESSMENT: 1. PAD 2. Hypertension. 3. DLP 4. Atrial fibrillation 5. Anemia. RECOMMENDATIONS: Continue current medical therapy. The patient has labile blood pressures with low blood pressures on dialysis and higher blood pressures on his nondialysis days. At this present time, we will continue supportive care and have him follow up in our office for consideration of outpatient ischemic evaluation. BONI/MANJULA/SANGEETA DR: BONI/alma delia TID: [id number]
== END 2021-06-27 17:10 | DRG 853 ==
LOC: ER 01:11 → 5 SOUTH 03:15
PROVIDERS: ADMIT Internal Medicine; ATTEND Internal Medicine
PROC: 0Y6J0Z1 Detachment at Left Lower Leg, High, Open Approach (ICD-10-PCS; principal; 2021-05-26)
PROC: 30233N1 Transfusion of Nonautologous Red Blood Cells into Peripheral Vein, Percutaneous Approach (ICD-10-PCS; 2021-05-26)
PROC: 5A1D70Z Performance of Urinary Filtration, Intermittent, Less than 6 Hours Per Day (ICD-10-PCS; 2021-05-26)
PROC: 5A1D70Z Performance of Urinary Filtration, Intermittent, Less than 6 Hours Per Day (ICD-10-PCS; 2021-05-28)
PROC: 5A1D70Z Performance of Urinary Filtration, Intermittent, Less than 6 Hours Per Day (ICD-10-PCS; 2021-05-31)
PROC: 5A1D70Z Performance of Urinary Filtration, Intermittent, Less than 6 Hours Per Day (ICD-10-PCS; 2021-06-02)
PROC: 5A1D70Z Performance of Urinary Filtration, Intermittent, Less than 6 Hours Per Day (ICD-10-PCS; 2021-06-04)
PROC: 02HV33Z Insertion of Infusion Device into Superior Vena Cava, Percutaneous Approach (ICD-10-PCS; 2021-06-05)
PROC: B4101ZZ Fluoroscopy of Abdominal Aorta using Low Osmolar Contrast (ICD-10-PCS; 2021-06-07)
PROC: 5A1D70Z Performance of Urinary Filtration, Intermittent, Less than 6 Hours Per Day (ICD-10-PCS; 2021-06-07)
PROC: 5A1D70Z Performance of Urinary Filtration, Intermittent, Less than 6 Hours Per Day (ICD-10-PCS; 2021-06-07)
PROC: 5A1D70Z Performance of Urinary Filtration, Intermittent, Less than 6 Hours Per Day (ICD-10-PCS; 2021-06-09)
PROC: 5A1D70Z Performance of Urinary Filtration, Intermittent, Less than 6 Hours Per Day (ICD-10-PCS; 2021-06-11)
PROC: 5A1D70Z Performance of Urinary Filtration, Intermittent, Less than 6 Hours Per Day (ICD-10-PCS; 2021-06-14)
PROC: 5A1D70Z Performance of Urinary Filtration, Intermittent, Less than 6 Hours Per Day (ICD-10-PCS; 2021-06-16)
PROC: 5A1D70Z Performance of Urinary Filtration, Intermittent, Less than 6 Hours Per Day (ICD-10-PCS; 2021-06-18)
PROC: 5A1D70Z Performance of Urinary Filtration, Intermittent, Less than 6 Hours Per Day (ICD-10-PCS; 2021-06-21)
DX: A41.89 Other specified sepsis (principal); U07.1 COVID-19; N18.6 End stage renal disease; G93.41 Metabolic encephalopathy; E10.52 Type 1 diabetes mellitus with diabetic peripheral angiopathy with gangrene; E46 Unspecified protein-calorie malnutrition; I13.2 Hypertensive heart and chronic kidney disease with heart failure and with stage 5 chronic kidney disease, or end stage renal disease; I47.2 Ventricular tachycardia; I48.92 Unspecified atrial flutter; I70.262 Atherosclerosis of native arteries of extremities with gangrene, left leg; L97.829 Non-pressure chronic ulcer of other part of left lower leg with unspecified severity; T81.30XA Disruption of wound, unspecified, initial encounter; D64.9 Anemia, unspecified; D69.6 Thrombocytopenia, unspecified; E10.22 Type 1 diabetes mellitus with diabetic chronic kidney disease; E10.42 Type 1 diabetes mellitus with diabetic polyneuropathy; E10.621 Type 1 diabetes mellitus with foot ulcer; E10.622 Type 1 diabetes mellitus with other skin ulcer; E78.5 Hyperlipidemia, unspecified; F17.200 Nicotine dependence, unspecified, uncomplicated; G40.909 Epilepsy, unspecified, not intractable, without status epilepticus; I07.1 Rheumatic tricuspid insufficiency; I25.10 Atherosclerotic heart disease of native coronary artery without angina pectoris; I25.5 Ischemic cardiomyopathy; I45.10 Unspecified right bundle-branch block; I48.0 Paroxysmal atrial fibrillation; I50.9 Heart failure, unspecified; J44.9 Chronic obstructive pulmonary disease, unspecified; L08.9 Local infection of the skin and subcutaneous tissue, unspecified; L97.529 Non-pressure chronic ulcer of other part of left foot with unspecified severity; M47.812 Spondylosis without myelopathy or radiculopathy, cervical region; T87.81 Dehiscence of amputation stump; T87.89 Other complications of amputation stump; Y83.5 Amputation of limb(s) as the cause of abnormal reaction of the patient, or of later complication, without mention of misadventure at the time of the procedure; Z79.4 Long term (current) use of insulin; Z82.3 Family history of stroke; Z86.73 Personal history of transient ischemic attack (TIA), and cerebral infarction without residual deficits; Z87.01 Personal history of pneumonia (recurrent); Z89.511 Acquired absence of right leg below knee; Z95.1 Presence of aortocoronary bypass graft; Z99.2 Dependence on renal dialysis; E21.3 Hyperparathyroidism, unspecified; F32.A Depression, unspecified; G43.909 Migraine, unspecified, not intractable, without status migrainosus; K21.9 Gastro-esophageal reflux disease without esophagitis; D63.1 Anemia in chronic kidney disease
CPT/HCPCS: 36246; 36415; 36430; 70450; 71045; 72125; 73630; 75625; 75716; 80048; 80053; 80202; 82274; 82962; 83605; 83735; 84100; 84484; 85007; 85014; 85018; 85025; 85027; 85610; 85651; 85730; 86140; 86706; 86850; 86900; 86901; 86920; 87040; 87071; 87075; 87077; 87106; 87186; 87340; 87426; 88307; 88311; 93005; 93308; 93923; 93970; 96365; 96367; 99152; 99153; A4930; A6402; A6443; A6449; A6454; A6455; A6457; C1894; J0690; J1170; J1644; J1815; J2185; J2250; J2370; J2543; J2704; J3010; J3370; J3490; J7030; J7040; P9016; P9046; Q9967; 97110-GP; 97530-GO; 97530-GP; 97535-GO; 99285-25; G0378; Q0169

== ENCOUNTER 2021-07-17 13:09 | Inpatient (IN) | payer MEDICARE ==
[2021-07-17] VITALS (12 sets, daily range): BP systolic 54–195; BP diastolic 43–87
[~2021-07-17] VITALS: Ht 175.3 cm; Wt 61.8 kg
[2021-07-17] MEDS ORDERED: IV NORMAL SALINE 500ML BAG 250 ML IV ONE (13:30)
[2021-07-17] MEDS ORDERED: PIPERACILLIN/TAZOBACTAM 2.25 GM in IV NORMAL SALINE 50ML 50 ML IV ONE (13:30)
[2021-07-17] MEDS ORDERED: ATROPINE 1 MG/10 ML DISP.SYRINGE. ONE (13:30)
[2021-07-17] MEDS ORDERED: CALCIUM GLUCONATE 1,000 MG/10 ML VIAL. IVP ONE (13:30)
[2021-07-17] MEDS ORDERED: ATROPINE 0.5 MG/5 ML DISP.SYRINGE. IV ONE (13:30)
[2021-07-17] MEDS ORDERED: EPINEPHrine VIAL 5 MG in IV NORMAL SALINE 250ML 250 ML IV PRN (13:45)
[2021-07-17 13:58] LABS: PROTHROMBIN TIME PATIENT 14.9 SEC (11.7-14.0)
[2021-07-17 13:59] LABS: BASO # 0.1 x10^3/uL (0.0-0.2); BASO % 2 % (0-3); EOS # 0.9 x10^3/uL (0.0-0.7); EOS % 12 % (0-3); HEMATOCRIT 35.4 % (39.0-53.0); HEMOGLOBIN 11.2 g/dL (13.0-17.5); LYMPH # 2.2 x10^3/uL (1.0-4.8); LYMPH % 27 % (24-48); MEAN CORPUSCULAR HEMOGLOBIN 27 pg (25-35); MEAN CORPUSCULAR HGB CONC 32 g/dL (31-37); MEAN CORPUSCULAR VOLUME 84 fL (79-100); MONO # 0.7 x10^3/uL (0.0-1.1); MONO % 8 % (0-9); NEUT % 51 % (31-73); PLATELET COUNT 167 x10^3/uL (140-400); RED BLOOD COUNT 4.21 x10^6/uL (4.30-5.70); RED CELL DISTRIBUTION WIDTH 20.4 % (11.5-14.5); WHITE BLOOD COUNT 7.9 x10^3/uL (4.0-11.0)
[2021-07-17 14:15] LABS: CALCIUM 9.5 mg/dL (8.5-10.1); CREATININE 8.6 mg/dL (0.7-1.3); GFR 6.5; POTASSIUM 4.4 mmol/L (3.5-5.1)
[2021-07-17 14:18] LABS: ETHANOL < 10 mg/dL (0-10)
[2021-07-17 14:19] LABS: BASE EXCESS ABG -5 mmol/L (-3-3); HCO3 ABG 21 mmol/L (21-28); PCO2 ABG 43 mmHg (35-46); PO2 ABG 102 mmHg (75-108); SAT O2 ABG 96 % (92-99)
[2021-07-17 14:19] LABS: PLT ESTIMATE ADEQUATE (ADEQUATE)
[2021-07-17 14:20] LABS: ACETAMIN < 2 mcg/ml (10-30); ALBUMIN 2.9 g/dL (3.4-5.0); ALBUMIN/GLOBULIN RATIO 0.6 (1.0-1.7); ANISOCYTOSIS MOD; POIKILOCYTOSIS SLIGHT; TOTAL BILIRUBIN 0.6 mg/dL (0.2-1.0); TOTAL PROTEIN 7.8 g/dL (6.4-8.2)
[2021-07-17 14:21] LABS: FIO2 ABG 28%/ 2L NC
--- NOTE | 2021-07-17 14:29 | RAD ---
Study: XR CHEST 1V Indication: Altered mental status. Comparison: 05/26/2021 Findings: Dual lumen central venous catheter terminates within the SVC/superior cavoatrial junction. Median jw rnotomy wires. Similar prominence of the cardiomediastinal silhouette. Also present previously are increased interst itial markings and hazy attenuation of both lungs. No layering effusion. No pneumothorax considering that the apices are not included in the [id number]. Impression: Similar findings from 05/26/2021 with enlargement of the cardiomediastinal silhouette and lung finding s which could be related to interstitial/alveolar edema. No layering effusion. Electronically signed by: KONSTANTIN SERRANO MD (07/17/2021 2:26 PM) [id number]
[2021-07-17] MEDS ORDERED: VANCOMYCIN 1.75 GM in IV NORMAL SALINE 500ML BAG 500 ML IV ONE (15:00)
--- NOTE | 2021-07-17 15:05 | RAD ---
Exam Date: 07/17/2021 2:[address] HEAD/BRAIN WO Indication: Reason: AMS / Spl. Instructions: / History: . TECHNIQUE: Head CT was performed without intravenous contrast. One or more of the following dose re duction techniques were utilized: *Automated exposure control (AEC) *Adjustment of mA and/or kV according to patient size *Use of iterative reconstruction technique *CT scan done according to ALARA, or ALARA/IMAGE GENTLY COMPARISON: May 26, 2021 FINDINGS: Left occipital encephalomalacia is again seen consistent with remote infarct. Chronic right basal ga nglia lacunar infarct noted. The ventricles and sulci are prominent consistent with cerebral volume loss. Patchy ill-defined low attenuation areas in the subcortical and periventricular white matter bilaterally are consistent with microvascular disease. There is no evidence of acute intracranial hemorrhage, extra-axial collecti on, mass effect, midline shift, or acute territorial infarct. No lesion of the skull base or the calv arium is seen. The visualized paranasal sinuses, mastoid air cells and orbits are normal in appearanc e. IMPRESSION: No evidence for acute intracranial abnormality. Chronic infarcts are again seen. Volume loss and microvascular disease. Electronically signed by: Onur Kenyon MD (07/17/2021 3:03 PM) [id number]
--- NOTE | 2021-07-17 15:45 | PHYS DOC ---
Past Medical History Past Medical History: Depression, Diabetes-Type II, Heart Disease, Hypertension, [place], Migraines, Seizure Additional Past Medical Histor: CELLULITIS L FOOT,BPH,CVA,ESRD,ENCEPHELOPATHY Past Surgical History: Coronary Bypass Surgery, Pacemaker Additional Past Surgical Histo: AV SHUNT TAKEDOWN LUE, Smoking Status: Current Every Day Smoker Alcohol Use: None Drug Use: None Adult General Chief Complaint Chief Complaint: ALTERED MENTAL STATUS HPI HPI The patient is a comorbid 55-year-old male with a history of hypertension, hyperlipidemia, coronary artery disease status post CABG, ischemic cardiomyopathy/heart failure with ejection fraction of around 35% as per last echocardiogram, atrial fibrillation, insulin-dependent diabetes, end-stage renal disease on hemodialysis (via tunneled dialysis catheter in the right chest wall), seizure disorder on Keppra and Topamax, prior hemorrhagic CVA. Patient was admitted to this facility in May for diabetic left foot infection status post transmetatarsal amputation. Mr. Cano presents for evaluation of altered mental status at home over the several hours prior to arrival. She reports that he missed dialysis yesterday because no Joi lift was available to mobilize him at the dialysis center. Family report that he was at his baseline until around breakfast time when he was noted to be less responsive than usual. Sister reports that he seemed intermittently to be having "staring episodes" which she states are typical of the absence-type seizures that he has. She called EMS to transport him to the hospital. Upon initial evaluation in the emergency department patient is somnolent but arouses to stimulation and is able to follow commands with both hands. He is bradycardic with a heart rate of around 40 and hypotensive with a blood pressure in the 80s/40s. Patient is oxygenating appropriately on about 2 L by nasal cannula. He is afebrile. Rhythm on the monitor is slow atrial flutter. Mr. Cano does not provide any history. Review of Systems Review of Systems A 12 point review of systems was completed and was negative except where noted in HPI above. Current Medications Current Medications Current Medications Medications (Trade) Dose Ordered Sig/Babak Start Time Stop Time Status Last Admin Dose Admin Atropine Sulfate (ATROPINE 0.5mg SYRINGE) 1 mg 1X ONCE 07/17/21 13:30 07/17/21 13:42 DC 07/17/21 13:32 1 MG Atropine Sulfate (ATROPINE 1mg SYRINGE) 1 mg [facility] ONCE 07/17/21 13:30 07/17/21 13:30 DC Calcium Gluconate (Calcium Gluconate) 1,000 mg 1X ONCE 07/17/21 13:30 07/17/21 13:42 DC 07/17/21 13:25 1,000 MG Dopamine HCl/ Dextrose 250 ml @ 12.994 mls/ hr 1X ONCE 07/17/21 14:15 07/18/21 09:29 07/17/21 14:56 12.994 MLS/HR Epinephrine HCl 5 mg/Sodium Chloride 255 ml @ 21.114 mls/ hr CONT PRN 07/17/21 13:45 07/17/21 14:17 21.114 MLS/HR Piperacillin Sod/ Tazobactam Sod 2.25 gm/Sodium Chloride 50 ml @ 100 mls/hr 1X ONCE 07/17/21 13:30 07/17/21 13:59 DC 07/17/21 14:32 100 MLS/HR Sodium Chloride 250 ml @ 500 mls/hr 1X ONCE 07/17/21 13:30 07/17/21 13:59 DC 07/17/21 13:48 500 MLS/HR Vancomycin HCl (Vanco Per Pharmacy) 1 each PRN DAILY PRN 07/17/21 13:30 Vancomycin HCl 1.75 gm/Sodium Chloride 500 ml @ 250 mls/hr 1X ONCE 07/17/21 15:00 07/17/21 16:59 07/17/21 15:00 250 MLS/HR Allergies Allergies Allergies Coded Allergies Type Severity Reaction Last Updated Verified No Known Drug Allergies 01/23/14 No Physical Exam Physical Exam 55-year-old chronically ill-appearing male who appears somnolent but in no acute distress. Head is normocephalic and atraumatic. Neck is supple and nontender. Oropharynx is mildly tacky. Lungs with mildly diminished breath sounds to all mills but good air movement without adventitious sounds heard anywhere. There is a normal S1 and S2 without rubs or gallops and capillary refill is slightly delayed, about 3 to 4 seconds globally. There is a bradycardic, irregular rhythm. Abdomen is soft, nontender and nondistended without pulsatile mass. Skin is cool and dry without cyanosis, clubbing or edema. Psychiatrically, the patient cannot be assessed secondary to altered mental status. Neurologically, patient moves all extremities to command, is somnolent but responsive and no lateralizing deficits are seen. Evaluation of the extremities reveals BUEs and BLEs neurovascularly intact distally with sensation, strength and pulses intact to all extremities. Current Patient Data Vital Signs Vital Signs Date Time Temp Pulse Resp B/P (MAP) Pulse Ox O2 Delivery O2 Flow Rate FiO2 07/17/21 14:49 98 165/61 (95) Nasal Cannula 2.0 07/17/21 13:09 97.7 20 100 97.7 Lab Values Laboratory Tests Test 07/17/21 13:20 07/17/21 14:20 07/17/21 15:45 White Blood Count 7.9 x10^3/uL (4.0-11.0) Red Blood Count 4.21 x10^6/uL (4.30-5.70) L Hemoglobin 11.2 g/dL (13.0-17.5) L Hematocrit 35.4 % (39.0-53.0) L Mean Corpuscular Volume 84 fL (79-100) Mean Corpuscular Hemoglobin 27 pg (25-35) Mean Corpuscular Hemoglobin Concent 32 g/dL (31-37) Red Cell Distribution Width 20.4 % (11.5-14.5) H Platelet Count 167 x10^3/uL (140-400) Neutrophils (%) (Auto) 51 % (31-73) Lymphocytes (%) (Auto) 27 % (24-48) Monocytes (%) (Auto) 8 % (0-9) Eosinophils (%) (Auto) 12 % (0-3) H Basophils (%) (Auto) 2 % (0-3) Neutrophils # (Auto) 4.0 x10^3/uL (1.8-7.7) Lymphocytes # (Auto) 2.2 x10^3/uL (1.0-4.8) Monocytes # (Auto) 0.7 x10^3/uL (0.0-1.1) Eosinophils # (Auto) 0.9 x10^3/uL (0.0-0.7) H Basophils # (Auto) 0.1 x10^3/uL (0.0-0.2) Platelet Estimate Adequate (ADEQUATE) Poikilocytosis Slight Anisocytosis Mod Prothrombin Time 14.9 SEC (11.7-14.0) H Prothrombin Time INR 1.2 (0.8-1.1) H Activated Partial Thromboplast Time 34 SEC (24-38) Sodium Level 143 mmol/L (136-145) Potassium Level 4.4 mmol/L (3.5-5.1) Chloride Level 101 mmol/L (98-107) Carbon Dioxide Level 22 mmol/L (21-32) Anion Gap 20 (6-14) H Blood Urea Nitrogen 67 mg/dL (8-26) H Creatinine 8.6 mg/dL (0.7-1.3) H Estimated GFR (Cockcroft-Gault) 6.5 BUN/Creatinine Ratio 8 (6-20) Glucose Level 61 mg/dL (70-99) L Lactic Acid Level 1.9 mmol/L (0.4-2.0) Calcium Level 9.5 mg/dL (8.5-10.1) Magnesium Level 1.9 mg/dL (1.8-2.4) Total Bilirubin 0.6 mg/dL (0.2-1.0) Aspartate Amino Transferase (AST) 41 U/L (15-37) H Alanine Aminotransferase (ALT) 19 U/L (16-63) Alkaline Phosphatase 166 U/L (46-116) H Troponin I High Sensitivity 53 ng/L (4-75) Total Protein 7.8 g/dL (6.4-8.2) Albumin 2.9 g/dL (3.4-5.0) L Albumin/Globulin Ratio 0.6 (1.0-1.7) L Procalcitonin 0.28 ng/mL (0.00-0.10) H Salicylates Level 2.0 mg/dL (2.8-20.0) L Salicylate Last Dose Date Unknown Salicylate Last Dose Time Unknown Acetaminophen Level < 2 mcg/ml (10-30) L Acetaminophen Last Dose Date Unknown Acetaminophen Last Dose Time Unknown Ethyl Alcohol Level < 10 mg/dL (0-10) O2 Saturation 96 % (92-99) Arterial Blood pH 7.31 (7.35-7.45) L Arterial Blood pCO2 at Patient Temp 43 mmHg (35-46) Arterial Blood pO2 at Patient Temp 102 mmHg (75-108) Arterial Blood HCO3 21 mmol/L (21-28) Arterial Blood Base Excess -5 mmol/L (-3-3) L FiO2 28%/ 2l nc Glucose (Fingerstick) 45 mg/dL (70-99) *L Laboratory Tests 07/17/21 13:20 Laboratory Tests 07/17/21 13:20 EKG EKG Atrial flutter, rate 50s, no acute ST elevation or depression, EP interpretation. Nonischemic tracing. Radiology/Procedures Radiology/Procedures CT HEAD/BRAIN WO Indication: Reason: AMS / Spl. Instructions: / History: . TECHNIQUE: Head CT was performed without intravenous contrast. One or more of the following dose reduction techniques were utilized: *Automated exposure control (AEC) *Adjustment of mA and/or kV according to patient size *Use of iterative reconstruction technique *CT scan done according to ALARA, or ALARA/IMAGE GENTLY COMPARISON: May 26, 2021 FINDINGS: Left occipital encephalomalacia is again seen consistent with remote infarct. Chronic right basal ganglia lacunar infarct noted. The ventricles and sulci are prominent consistent with cerebral volume loss. Patchy ill-defined low attenuation areas in the subcortical and periventricular white matter bilaterally are consistent with microvascular disease. There is no evidence of acute intracranial hemorrhage, extra-axial collection, mass effect, midline shift, or acute territorial infarct. No lesion of the skull base or the calvarium is seen. The visualized paranasal sinuses, mastoid air cells and orbits are normal in appearance. IMPRESSION: No evidence for acute intracranial abnormality. Chronic infarcts are again seen. Volume loss and microvascular disease. Electronically signed by: Ashley Kenyon MD (07/17/2021 3:03 PM) [facility] DICTATED and SIGNED BY: ASHLEY KENYON MD DATE: 07/17/21 [id number] Study: XR CHEST 1V Indication: Altered mental status. Comparison: 05/26/2021 Findings: Dual lumen central venous catheter terminates within the SVC/superior cavoatrial junction. Median sternotomy wires. Similar prominence of the cardiomediastinal silhouette. Also present previously are increased interstitial markings and hazy attenuation of both lungs. No layering effusion. No pneumothorax considering that the apices are not included in the [id number]. Impression: Similar findings from 05/26/2021 with enlargement of the cardiomediastinal silhouette and lung findings which could be related to interstitial/alveolar edema. No layering effusion. Electronically signed by: KONSTANTIN SERRANO MD (07/17/2021 2:26 PM) [id number] DICTATED and SIGNED BY: KONSTANTIN SERRANO MD DATE: 07/17/21 [id number] Course & Med Decision Making Course & Med Decision Making Patient here with symptomatic bradycardia/slow atrial flutter. Suspicion for sick sinus syndrome as an underlying etiology for symptoms. Upon arrival, empiric calcium gluconate given in the event bradycardia was secondary to hyperkalemia; there was no response to this intervention. Patient then given push dose epinephrine to temporize, with very good response. Subsequently started on epinephrine gtt. at a low infusion rate, with resolution of bradycardia and hypotension. At the suggestion of Dr. Lowery of cardiology, cross titrated off epinephrine and onto a dopamine infusion; patient currently stable on a low rate dopamine drip with appropriate heart rate and blood pressure. Oxygen saturation persistently with low readings, likely due to cold extremities. ABG obtained appears very appropriate with normal PO2 and PCO2 and a slightly acidotic pH likely secondary to uremia. Labs and imaging are as above, generally without much evidence of acute process aside from uremia and evidence of a urinary tract infection which has been addressed with the broad-spectrum antibiotics the patient received empirically upon arrival after cultures were drawn. Reported absence-type seizures prehospital have been addressed with a dose of IV Keppra, renally dosed. Hypoglycemia noted during the patient's course in the emergency department has been addressed with a dextrose infusion, as the patient remains too encephalopathic to be trusted with oral intake. Case discussed in detail with Dr. Lowery of cardiology who, as above, recommends dopamine drip and holding the patient's home beta-tonya with a plan to place definitive ICD/pacemaker if heart rate off chronotropic support agents does not normalize overnight. Case discussed in detail with Dr. Nunez of nephrology; advised him that I believe the patient will benefit from dialysis this evening to give us room to maneuver from a volume status standpoint given that the patient is requiring a dextrose drip. He stated he would facilitate that. Case discussed in detail with Dr. Valle, who graciously accepts the patient for ICU admission. Patient now resting comfortably in no acute distress on serial reassessments, moving all extremities to command and answering some questions intermittently. Stabilized for ICU admission. Critical care time was 165 minutes, independent of any separately-billed procedure time. Dragon Disclaimer Dragon Disclaimer This electronic medical record was generated, in whole or in part, using a voice recognition dictation system. Departure Departure Impression: Primary Impression: Sick sinus syndrome Additional Impressions: Symptomatic bradycardia Uremia Volume overload Hypoglycemia unawareness due to type 2 diabetes mellitus Acute metabolic encephalopathy Breakthrough seizure Acute cystitis Disposition: ADMITTED INPATIENT Admitting Physician: Madi. Doe Condition: CRITICAL Referrals: KAHLIL VALLE MD (PCP) Problem Qualifiers Additional Impressions: Volume overload Hypervolemia type: other Qualified Codes: E87.79 - Other fluid overload Acute cystitis Hematuria presence: with hematuria Qualified Codes: N30.01 - Acute cystitis with hematuria CARRIE JERRY MD Jul 17, 2021 15:45
[2021-07-17] MEDS ORDERED: IV DEXTROSE 10% 1,000 ML IV ONE (16:15)
[2021-07-17] MEDS ORDERED: DEXTROSE 50% 25 GM / 50ML DISP.SYRIN. IV ONE (16:15)
[2021-07-17 16:27] LABS: BILIRUBIN,URINE SMALL (NEG); CLARITY,URINE TURBID; COLOR,URINE YELLOW; NITRITE,URINE NEGATIVE (NEG); PH,URINE 6.5 (<5.0-8.0); PROTEIN,URINE >=300 mg/dL (NEG-TRACE); UROBILINOGEN,URINE 0.2 mg/dL (0.2 mg/dL)
[2021-07-17 16:30] LABS: BACTERIA,URINE FEW /HPF (0-FEW); WBC,URINE TNTC /HPF (0-4)
[2021-07-17] MEDS ORDERED: ONDANSETRON PF 4 MG/2 ML VIAL. IVP PRN (16:30)
[2021-07-17 16:34] LABS: AMPHETAMINE/METHAMPHETAMINE NEG (NEG); BARBITURATES NEG (NEG); BENZODIAZEPINES NEG (NEG); CANNABINOIDS NEG (NEG); COCAINE NEG (NEG); METHADONE NEG (NEG); OPIATES NEG (NEG); PHENCYCLIDINE NEG (NEG)
--- NOTE | 2021-07-17 16:50 | NUR ---
Received patient from ED, GCS 6, with hemodialysis history of 7 yrs, missed treatment yesterday. Hooked to monitor car operator, Narendra noted, initial VS taken and recorded, interviewed sister for PMHx. Dialysis nurse at bedside, to start dialysis as ordered. With ongoing dopamine drip at 5mcg/kg/min. 1715H- Noted order of D10 at 125ml/hr, dialysus RN Adrien has ongoing dextrose on his dialysis setting. Opted not to administer for now.
[2021-07-17] MEDS ORDERED: DIALYSIS PATIENT. MC PRN (18:00)
[2021-07-17] MEDS ORDERED: IV NORMAL SALINE 1000ML BAG 1,000 ML IV PRN ×2 (18:00)
[2021-07-17] MEDS ORDERED: PANT40TA77 PO (19:05)
[2021-07-17] MEDS ORDERED: LACT100C2 PO (19:19)
[2021-07-17] MEDS ORDERED: MUPI15CR8 TP (19:19)
[2021-07-17] MEDS ORDERED: QUET25TA5 PO (19:19)
[2021-07-18] VITALS (23 sets, daily range): BP systolic 81–186; BP diastolic 41–84
--- NOTE | 2021-07-18 01:00 | EKG ---
[facility] [address] [place] [address] Test Date: 2021-07-17 Test Time: 13:16:31 Pat Name: FER CHAUDHARY Department: Room: 113 1 Gender: M Network Admin: : [id number] Requested By: CARRIE JERRY Order Number: [id number] Reading MD: Robert Stahl MD Measurements Intervals [place] Rate: 57 P: MO: QRS: -44 QRSD: 110 T: 88 QT: 432 QTc: 424 Interpretive Statements [employer]LL[employer] LAD Electronically Signed On 07-19-2021 10:14:38 [employer]ES [employer]ULT[employer] by Robert Stahl MD
--- NOTE | 2021-07-18 08:24 | PDOC2 ---
CONSULT Date of Consult Date of Consult DATE: 07/18/21 TIME: 08:24 Reason for Consult Reason for Consult: Atrial fibrillation with slow ventricular response Referring Physician Referring Physician: Dr. Feldman Identification/Chief Complaint Chief Complaint Altered mental status Source Source: Chart review, Patient History of Present Illness Reason for Visit: 55-year-old male with history of coronary artery disease s/p CABG, atrial fibrillation, ischemic cardiomyopathy and end-stage renal disease on hemodialysis who had a prolonged hospital course recently for Covid infection and metabolic encephalopathy was brought by family for mental status changes. He apparently missed his hemodialysis yesterday. He was noted to be bradycardic on presentation with heart rate in 40s and blood pressure in 80s/40s that improved after he was initiated on dopamine infusion. Patient is very somnolent and no significant history can be obtained but chart review did not show any symptoms of chest pain, shortness of breath or syncope. Past Medical History Cardiovascular: AFIB, CAD, CHF, HTN, [place], Hyperlipidemia Pulmonary: COPD CENTRAL NERVOUS SYSTEM: CVA, Periperal neuropathy, Seizure GI: Constipation, GERD Psych: Depression Rheumatologic: Other Renal/: Chronic renal failure, Urinary Incontinence Endocrine: Diabetes Past Surgical History Past Surgical History: CABG, Other Family History Family History: Family History Unknown Social History ALCOHOL: none Drugs: None Lives: [place]Way Current Problem List Problem List Problems Medical Problems: (1) Acute cystitis Status: Acute (2) Acute metabolic encephalopathy Status: Acute (3) Breakthrough seizure Status: Acute (4) Hypoglycemia unawareness due to type 2 diabetes mellitus Status: Acute (5) Sick sinus syndrome Status: Acute (6) Symptomatic bradycardia Status: Acute (7) Uremia Status: Acute (8) Volume overload Status: Acute Current Medications Current Medications Current Medications Atropine Sulfate (ATROPINE 1mg SYRINGE) 1 mg STK-MED ONCE .ROUTE ; Start 07/17/21 at 13:30; Stop 07/17/21 at 13:30; Status DC Sodium Chloride 250 ml @ 500 mls/hr 1X ONCE IV Last administered on 07/17/21at 13:48; Start 07/17/21 at 13:30; Stop 07/17/21 at 13:59; Status DC Piperacillin Sod/ Tazobactam Sod 2.25 gm/Sodium Chloride 50 ml @ 100 mls/hr 1X ONCE IV Last administered on 07/17/21at 14:32; Start 07/17/21 at 13:30; Stop 07/17/21 at 13:59; Status DC Vancomycin HCl (Vanco Per Pharmacy) 1 each PRN DAILY PRN [facility] SEE COMMENTS; Start 07/17/21 at 13:30 Levetiracetam 100 ml @ 400 mls/hr Q12HR IV Last administered on 07/17/21at 23:03; Start 07/17/21 at 21:00 Atropine Sulfate (ATROPINE 0.5mg SYRINGE) 1 mg 1X ONCE IV Last administered on 07/17/21at 13:32; Start 07/17/21 at 13:30; Stop 07/17/21 at 13:42; Status DC Calcium Gluconate (Calcium Gluconate) 1,000 mg 1X ONCE IVP Last administered on 07/17/21at 13:25; Start 07/17/21 at 13:30; Stop 07/17/21 at 13:42; Status DC Epinephrine HCl 5 mg/Sodium Chloride 255 ml @ 21.114 mls/ hr CONT PRN IV SEE I/O RECORD Last administered on 07/17/21at 14:17; Start 07/17/21 at 13:45 Vancomycin HCl 1.75 gm/Sodium Chloride 500 ml @ 250 mls/hr 1X ONCE IV Last administered on 07/17/21at 15:00; Start 07/17/21 at 15:00; Stop 07/17/21 at 16:59; Status DC Dopamine HCl/ Dextrose 250 ml @ 12.994 mls/ hr 1X ONCE IV Last administered on 07/17/21at 14:56; Start 07/17/21 at 14:15; Stop 07/18/21 at 09:29 Dextrose (Dextrose 50%-Water Syringe) 25 gm 1X ONCE IV Last administered on 07/17/21at 15:56; Start 07/17/21 at 16:15; Stop 07/17/21 at 16:16; Status DC Dextrose 1,000 ml @ 125 mls/hr 1X ONCE IV ; Start 07/17/21 at 16:15; Stop 07/18/21 at 00:14; Status DC Ondansetron HCl (Zofran) 4 mg PRN Q8HRS PRN IVP NAUSEA/VOMITING Last administered on 07/18/21at 07:41; Start 07/17/21 at 16:30; Stop 07/18/21 at 16:29 Sodium Chloride 1,000 ml @ 1,000 mls/hr Q1H PRN IV hypotension; Start 07/17/21 at 18:00; Stop 07/17/21 at 23:59; Status DC Sodium Chloride 1,000 ml @ 400 mls/hr Q2H30M PRN IV PATENCY; Start 07/17/21 at 18:00; Stop 07/18/21 at 05:59; Status DC Info (PHARMACY MONITORING -- do not chart) 1 each PRN DAILY PRN [facility] SEE COMMENTS ; Start 07/17/21 at 18:00 Active Scripts Active Metoprolol Succinate 50 Mg Tab.er.24h 50 Mg PO DAILY 30 Days Levetiracetam 500 Mg Tablet 500 Mg PO BID 30 Days Reported Seroquel (Quetiapine Fumarate) 25 Mg Tablet 1 Tab PO QHS Mupirocin Cream (Mupirocin) 15 Gm Cream..g. 1 Ruth TP BID 10 Days Acidophilus (Lactobacillus Acidophilus) 100 Mg Capsule 1 Cap PO BID 30 Days Pantoprazole Sodium (Pantoprazole Sodium) 40 Mg Tablet.dr 40 Mg PO DAILYAC Trazodone Hcl 50 Mg Tablet 1 Tab PO QHS Xultophy 100 Unit-3.6 mg/ml (Insulin Degludec/Liraglutide) 3 Ml Insuln.pen 24 Ml SQ HS Vitamin D (Cholecalciferol (Vitamin D3)) 1,000 Unit Capsule 1 Cap PO DAILY Atorvastatin Calcium 10 Mg Tablet 10 Mg PO DAILY Sildenafil (Sildenafil Citrate) 20 Mg Tablet 20 Mg PO TID Zetia (Ezetimibe) 10 Mg Tablet 10 Mg PO DAILY Topiramate 100 Mg Tablet 100 Mg PO BID Promethazine Hcl 25 Mg Tablet 25 Mg PO Q6H PRN B-12 (Cyanocobalamin (Vitamin B-12)) 1,000 Mcg Tablet 1,000 Mcg PO DAILY Vascepa (Icosapent Ethyl) 1 Gm Capsule 2 Cap PO BID Aspirin Ec (Aspirin) 81 Mg Tablet.dr 81 Mg PO DAILY Duloxetine Hcl 60 Mg Capsule.dr 60 Mg PO HS Lyrica (Pregabalin) 225 Mg Capsule 225 Mg PO BID Losartan-Hctz 100-25 Mg Tab (Losartan/Hydrochlorothiazide) 1 Each Tablet 25 Mg PO DAILY Mirtazapine 45 Mg Tablet 45 Mg PO HS Amlodipine Besylate 5 Mg Tablet 5 Mg PO DAILY Allergies Allergies: Coded Allergies: No Known Drug Allergies (Unverified , 01/23/14) ROS Review of System 14 point review of systems is negative other than for symptoms noted in HPI. Physical Exam General: No acute distress HEENT: Atraumatic Lungs: Clear to auscultation Heart: Other (Heart rate irregular, ESM aortic) Abdomen: Soft Extremities: No edema Vitals VITALS Vital Signs Date Time Temp Pulse Resp B/P (MAP) Pulse Ox O2 Delivery O2 Flow Rate FiO2 07/18/21 06:00 72 20 118/60 100 Nasal Cannula 2.0 07/17/21 17:00 98.4 98.4 Labs Labs Laboratory Tests Test 07/17/21 13:20 07/17/21 14:20 07/17/21 15:45 07/17/21 16:00 White Blood Count 7.9 x10^3/uL (4.0-11.0) Red Blood Count 4.21 x10^6/uL (4.30-5.70) Hemoglobin 11.2 g/dL (13.0-17.5) Hematocrit 35.4 % (39.0-53.0) Mean Corpuscular Volume 84 fL (79-100) Mean Corpuscular Hemoglobin 27 pg (25-35) Mean Corpuscular Hemoglobin Concent 32 g/dL (31-37) Red Cell Distribution Width 20.4 % (11.5-14.5) Platelet Count 167 x10^3/uL (140-400) Neutrophils (%) (Auto) 51 % (31-73) Lymphocytes (%) (Auto) 27 % (24-48) Monocytes (%) (Auto) 8 % (0-9) Eosinophils (%) (Auto) 12 % (0-3) Basophils (%) (Auto) 2 % (0-3) Neutrophils # (Auto) 4.0 x10^3/uL (1.8-7.7) Lymphocytes # (Auto) 2.2 x10^3/uL (1.0-4.8) Monocytes # (Auto) 0.7 x10^3/uL (0.0-1.1) Eosinophils # (Auto) 0.9 x10^3/uL (0.0-0.7) Basophils # (Auto) 0.1 x10^3/uL (0.0-0.2) Platelet Estimate Adequate (ADEQUATE) Poikilocytosis Slight Anisocytosis Mod Prothrombin Time 14.9 SEC (11.7-14.0) Prothromb Time International Ratio 1.2 (0.8-1.1) Activated Partial Thromboplast Time 34 SEC (24-38) Sodium Level 143 mmol/L (136-145) Potassium Level 4.4 mmol/L (3.5-5.1) Chloride Level 101 mmol/L (98-107) Carbon Dioxide Level 22 mmol/L (21-32) Anion Gap 20 (6-14) Blood Urea Nitrogen 67 mg/dL (8-26) Creatinine 8.6 mg/dL (0.7-1.3) Estimated GFR (Cockcroft-Gault) 6.5 BUN/Creatinine Ratio 8 (6-20) Glucose Level 61 mg/dL (70-99) Lactic Acid Level 1.9 mmol/L (0.4-2.0) Calcium Level 9.5 mg/dL (8.5-10.1) Magnesium Level 1.9 mg/dL (1.8-2.4) Total Bilirubin 0.6 mg/dL (0.2-1.0) Aspartate Amino Transf (AST/SGOT) 41 U/L (15-37) Alanine Aminotransferase (ALT/SGPT) 19 U/L (16-63) Alkaline Phosphatase 166 U/L (46-116) Troponin I High Sensitivity 53 ng/L (4-75) Total Protein 7.8 g/dL (6.4-8.2) Albumin 2.9 g/dL (3.4-5.0) Albumin/Globulin Ratio 0.6 (1.0-1.7) Procalcitonin 0.28 ng/mL (0.00-0.10) Salicylates Level 2.0 mg/dL (2.8-20.0) Salicylate Last Dose Date Unknown Salicylate Last Dose Time Unknown Acetaminophen Level < 2 mcg/ml (10-30) Acetaminophen Last Dose Date Unknown Acetaminophen Last Dose Time Unknown Ethyl Alcohol Level < 10 mg/dL (0-10) O2 Saturation 96 % (92-99) Arterial Blood pH 7.31 (7.35-7.45) Arterial Blood pCO2 at Patient Temp 43 mmHg (35-46) Arterial Blood pO2 at Patient Temp 102 mmHg (75-108) Arterial Blood HCO3 21 mmol/L (21-28) Arterial Blood Base Excess -5 mmol/L (-3-3) FiO2 28%/ 2l nc Glucose (Fingerstick) 45 mg/dL (70-99) Urine Collection Type U cath Urine Color Yellow Urine Clarity Turbid Urine pH 6.5 (<5.0-8.0) Urine Specific [place] 1.025 (1.000-1.030) Urine Protein >=300 mg/dL (NEG-TRACE) Urine Glucose (UA) Negative mg/dL (NEG) Urine Ketones (Stick) Negative mg/dL (NEG) Urine Blood Large (NEG) Urine Nitrite Negative (NEG) Urine Bilirubin Small (NEG) Urine Urobilinogen Dipstick 0.2 mg/dL (0.2 mg/dL) Urine Leukocyte Esterase Large (NEG) Urine RBC /HPF (0-2) Urine WBC Tntc /HPF (0-4) Urine Bacteria Few /HPF (0-FEW) Urine Opiates Screen Neg (NEG) Urine Methadone Screen Neg (NEG) Urine Barbiturates Neg (NEG) Urine Phencyclidine Screen Neg (NEG) Urine Amphetamine/Methamphetamine Neg (NEG) Urine Benzodiazepines Screen Neg (NEG) Urine Cocaine Screen Neg (NEG) Urine Cannabinoids Screen Neg (NEG) Urine Ethyl Alcohol Neg (NEG) Test 07/17/21 16:32 07/17/21 16:33 07/18/21 00:10 07/18/21 05:47 Glucose (Fingerstick) 102 mg/dL (70-99) 121 mg/dL (70-99) 182 mg/dL (70-99) SARS-CoV-2 Antigen (Rapid) Negative (NEGATIVE) Laboratory Tests Test 07/17/21 13:20 07/17/21 14:20 07/17/21 15:45 07/17/21 16:00 White Blood Count 7.9 x10^3/uL (4.0-11.0) Red Blood Count 4.21 x10^6/uL (4.30-5.70) Hemoglobin 11.2 g/dL (13.0-17.5) Hematocrit 35.4 % (39.0-53.0) Mean Corpuscular Volume 84 fL (79-100) Mean Corpuscular Hemoglobin 27 pg (25-35) Mean Corpuscular Hemoglobin Concent 32 g/dL (31-37) Red Cell Distribution Width 20.4 % (11.5-14.5) Platelet Count 167 x10^3/uL (140-400) Neutrophils (%) (Auto) 51 % (31-73) Lymphocytes (%) (Auto) 27 % (24-48) Monocytes (%) (Auto) 8 % (0-9) Eosinophils (%) (Auto) 12 % (0-3) Basophils (%) (Auto) 2 % (0-3) Neutrophils # (Auto) 4.0 x10^3/uL (1.8-7.7) Lymphocytes # (Auto) 2.2 x10^3/uL (1.0-4.8) Monocytes # (Auto) 0.7 x10^3/uL (0.0-1.1) Eosinophils # (Auto) 0.9 x10^3/uL (0.0-0.7) Basophils # (Auto) 0.1 x10^3/uL (0.0-0.2) Platelet Estimate Adequate (ADEQUATE) Poikilocytosis Slight Anisocytosis Mod Prothrombin Time 14.9 SEC (11.7-14.0) Prothromb Time International Ratio 1.2 (0.8-1.1) Activated Partial Thromboplast Time 34 SEC (24-38) Sodium Level 143 mmol/L (136-145) Potassium Level 4.4 mmol/L (3.5-5.1) Chloride Level 101 mmol/L (98-107) Carbon Dioxide Level 22 mmol/L (21-32) Anion Gap 20 (6-14) Blood Urea Nitrogen 67 mg/dL (8-26) Creatinine 8.6 mg/dL (0.7-1.3) Estimated GFR (Cockcroft-Gault) 6.5 BUN/Creatinine Ratio 8 (6-20) Glucose Level 61 mg/dL (70-99) Lactic Acid Level 1.9 mmol/L (0.4-2.0) Calcium Level 9.5 mg/dL (8.5-10.1) Magnesium Level 1.9 mg/dL (1.8-2.4) Total Bilirubin 0.6 mg/dL (0.2-1.0) Aspartate Amino Transf (AST/SGOT) 41 U/L (15-37) Alanine Aminotransferase (ALT/SGPT) 19 U/L (16-63) Alkaline Phosphatase 166 U/L (46-116) Troponin I High Sensitivity 53 ng/L (4-75) Total Protein 7.8 g/dL (6.4-8.2) Albumin 2.9 g/dL (3.4-5.0) Albumin/Globulin Ratio 0.6 (1.0-1.7) Procalcitonin 0.28 ng/mL (0.00-0.10) Salicylates Level 2.0 mg/dL (2.8-20.0) Salicylate Last Dose Date Unknown Salicylate Last Dose Time Unknown Acetaminophen Level < 2 mcg/ml (10-30) Acetaminophen Last Dose Date Unknown Acetaminophen Last Dose Time Unknown Ethyl Alcohol Level < 10 mg/dL (0-10) O2 Saturation 96 % (92-99) Arterial Blood pH 7.31 (7.35-7.45) Arterial Blood pCO2 at Patient Temp 43 mmHg (35-46) Arterial Blood pO2 at Patient Temp 102 mmHg (75-108) Arterial Blood HCO3 21 mmol/L (21-28) Arterial Blood Base Excess -5 mmol/L (-3-3) FiO2 28%/ 2l nc Glucose (Fingerstick) 45 mg/dL (70-99) Urine Collection Type U cath Urine Color Yellow Urine Clarity Turbid Urine pH 6.5 (<5.0-8.0) Urine Specific [place] 1.025 (1.000-1.030) Urine Protein >=300 mg/dL (NEG-TRACE) Urine Glucose (UA) Negative mg/dL (NEG) Urine Ketones (Stick) Negative mg/dL (NEG) Urine Blood Large (NEG) Urine Nitrite Negative (NEG) Urine Bilirubin Small (NEG) Urine Urobilinogen Dipstick 0.2 mg/dL (0.2 mg/dL) Urine Leukocyte Esterase Large (NEG) Urine RBC /HPF (0-2) Urine WBC Tntc /HPF (0-4) Urine Bacteria Few /HPF (0-FEW) Urine Opiates Screen Neg (NEG) Urine Methadone Screen Neg (NEG) Urine Barbiturates Neg (NEG) Urine Phencyclidine Screen Neg (NEG) Urine Amphetamine/Methamphetamine Neg (NEG) Urine Benzodiazepines Screen Neg (NEG) Urine Cocaine Screen Neg (NEG) Urine Cannabinoids Screen Neg (NEG) Urine Ethyl Alcohol Neg (NEG) Test 07/17/21 16:32 07/17/21 16:33 07/18/21 00:10 07/18/21 05:47 Glucose (Fingerstick) 102 mg/dL (70-99) 121 mg/dL (70-99) 182 mg/dL (70-99) SARS-CoV-2 Antigen (Rapid) Negative (NEGATIVE) Assessment/Plan Assessment/Plan 1. PAF presenting with atrial flutter with slow VR. This has improved since admission and patient is currently off dopamine infusion. No significant pauses noted on telemetry. Hold beta-blockers for now. No clear indication for permanent pacemaker implantation yet -we will continue to monitor. Patient is a poor candidate for long-term anticoagulation secondary to anemia and subdural hematoma in the past. Continue aspirin for stroke prophylaxis. 2. Acute metabolic encephalopathy: Treat per IM 3. ESRD with missed hemodialysis yesterday. Nephrology following. 4. Seizure disorder: Neurology following 5. CAD: s/p CABG. clinically stable and chest pain-free. Continue current secondary prevention measures. 6. HTN; controlled 7. DM2: Treat per IM 8. S/P LBKA 9. Ischemic cardiomyopathy, chronic systolic heart failure LV EF 30-35%, clinically well compensated 10. Mild to moderate , moderate to severe TR. Estimated PAP 60 mmHg on recent 2D echo. 11. PAD: Recent abdominal aortogram revealed no significant aortoiliac disease bilaterally and moderate diffuse 50 to 60% stenosis involving the SFA with one- vessel runoff bilaterally. 12. Acute cystitis: Per IM Thank you for your consultation DONNELL BARILLAS MD Jul 18, 2021 08:24
[2021-07-18] MEDS ORDERED: VANCOMYCIN PER PHARMACY MC PRN (09:30)
[2021-07-18] MEDS ORDERED: PIP/TAZO PER PHARMACY MC PRN (09:30)
--- NOTE | 2021-07-18 10:51 | PDOC2 ---
CONSULT Date of Consult Date of Consult DATE: 07/18/21 TIME: 10:46 Reason for Consult Reason for Consult: ESRD Referring Physician Referring Physician: MAURO Identification/Chief Complaint Chief Complaint CONFUSION Source Source: Chart review History of Present Illness Reason for Visit: THIS IS A 55 YR OLD WITH ESRD ON OP HD ON MWF. MISSED HIS TX ON MONDAY. NOW ADMITTED WITH CONFUSION AND LOW BG. CT HEAD NEG FOR ACUTE FINDINGS. NOTED TO BE BRADYCARDIC WITH HR IN THE 40-50 RANGE. LABS ARE C/W HIS ESRD STATUS. IMAGING AND EXAM C/W FLUID OVERLOAD Past Medical History Cardiovascular: AFIB, CAD, CHF, HTN, CO, Hyperlipidemia Pulmonary: COPD CENTRAL NERVOUS SYSTEM: CVA, Periperal neuropathy, Seizure GI: Constipation, GERD Psych: Depression Rheumatologic: Other Renal/: Chronic renal failure, Urinary Incontinence Endocrine: Diabetes Past Surgical History Past Surgical History: CABG, Other Family History Family History: Diabetes, Hypertension, Family History Unknown Social History ALCOHOL: none Drugs: None Lives: [facility] Current Problem List Problem List Problems Medical Problems: (1) Acute cystitis Status: Acute (2) Acute metabolic encephalopathy Status: Acute (3) Breakthrough seizure Status: Acute (4) Hypoglycemia unawareness due to type 2 diabetes mellitus Status: Acute (5) Sick sinus syndrome Status: Acute (6) Symptomatic bradycardia Status: Acute (7) Uremia Status: Acute (8) Volume overload Status: Acute Current Medications Current Medications Current Medications Atropine Sulfate (ATROPINE 1mg SYRINGE) 1 mg STK-MED ONCE .ROUTE ; Start 07/17/21 at 13:30; Stop 07/17/21 at 13:30; Status DC Sodium Chloride 250 ml @ 500 mls/hr 1X ONCE IV Last administered on 07/17/21at 13:48; Start 07/17/21 at 13:30; Stop 07/17/21 at 13:59; Status DC Piperacillin Sod/ Tazobactam Sod 2.25 gm/Sodium Chloride 50 ml @ 100 mls/hr 1X ONCE IV Last administered on 07/17/21at 14:32; Start 07/17/21 at 13:30; Stop 07/17/21 at 13:59; Status DC Vancomycin HCl (Vanco Per Pharmacy) 1 each PRN DAILY PRN MC SEE COMMENTS; Start 07/17/21 at 13:30 Levetiracetam 100 ml @ 400 mls/hr Q12HR IV Last administered on 07/17/21at 23:03; Start 07/17/21 at 21:00; Stop 07/18/21 at 09:47; Status DC Atropine Sulfate (ATROPINE 0.5mg SYRINGE) 1 mg 1X ONCE IV Last administered on 07/17/21at 13:32; Start 07/17/21 at 13:30; Stop 07/17/21 at 13:42; Status DC Calcium Gluconate (Calcium Gluconate) 1,000 mg 1X ONCE IVP Last administered on 07/17/21at 13:25; Start 07/17/21 at 13:30; Stop 07/17/21 at 13:42; Status DC Epinephrine HCl 5 mg/Sodium Chloride 255 ml @ 21.114 mls/ hr CONT PRN IV SEE I/O RECORD Last administered on 07/17/21at 14:17; Start 07/17/21 at 13:45 Vancomycin HCl 1.75 gm/Sodium Chloride 500 ml @ 250 mls/hr 1X ONCE IV Last administered on 07/17/21at 15:00; Start 07/17/21 at 15:00; Stop 07/17/21 at 16:59; Status DC Dopamine HCl/ Dextrose 250 ml @ 12.994 mls/ hr 1X ONCE IV Last administered on 07/17/21at 14:56; Start 07/17/21 at 14:15; Stop 07/18/21 at 09:29; Status DC Dextrose (Dextrose 50%-Water Syringe) 25 gm 1X ONCE IV Last administered on 07/17/21at 15:56; Start 07/17/21 at 16:15; Stop 07/17/21 at 16:16; Status DC Dextrose 1,000 ml @ 125 mls/hr 1X ONCE IV ; Start 07/17/21 at 16:15; Stop 07/18/21 at 00:14; Status DC Ondansetron HCl (Zofran) 4 mg PRN Q8HRS PRN IVP NAUSEA/VOMITING Last administered on 07/18/21at 07:41; Start 07/17/21 at 16:30; Stop 07/18/21 at 16:29 Sodium Chloride 1,000 ml @ 1,000 mls/hr Q1H PRN IV hypotension; Start 07/17/21 at 18:00; Stop 07/17/21 at 23:59; Status DC Sodium Chloride 1,000 ml @ 400 mls/hr Q2H30M PRN IV PATENCY; Start 07/17/21 at 18:00; Stop 07/18/21 at 05:59; Status DC Info (PHARMACY MONITORING -- do not chart) 1 each PRN DAILY PRN MC SEE COMMENTS; Start 07/17/21 at 18:00 Piperacillin Sod/ Tazobactam Sod (Zosyn Per Pharmacy) 1 each PRN DAILY PRN MC SEE COMMENTS; Start 07/18/21 at 09:30 Vancomycin HCl (Vanco Per Pharmacy) 1 each PRN DAILY PRN MC SEE COMMENTS; Start 07/18/21 at 09:30; Status UNV Levetiracetam 100 ml @ 400 mls/hr Q48H IV ; Start 07/19/21 at 21:00 Piperacillin Sod/ Tazobactam Sod 2.25 gm/Sodium Chloride 50 ml @ 100 mls/hr Q8HRS IV ; Start 07/18/21 at 14:00 Active Scripts Active Metoprolol Succinate 50 Mg Tab.er.24h 50 Mg PO DAILY 30 Days Levetiracetam 500 Mg Tablet 500 Mg PO BID 30 Days Reported Seroquel (Quetiapine Fumarate) 25 Mg Tablet 1 Tab PO QHS Mupirocin Cream (Mupirocin) 15 Gm Cream..g. 1 Ruth TP BID 10 Days Acidophilus (Lactobacillus Acidophilus) 100 Mg Capsule 1 Cap PO BID 30 Days Pantoprazole Sodium (Pantoprazole Sodium) 40 Mg Tablet.dr 40 Mg PO DAILYAC Trazodone Hcl 50 Mg Tablet 1 Tab PO QHS Xultophy 100 Unit-3.6 mg/ml (Insulin Degludec/Liraglutide) 3 Ml Insuln.pen 24 Ml SQ HS Vitamin D (Cholecalciferol (Vitamin D3)) 1,000 Unit Capsule 1 Cap PO DAILY Atorvastatin Calcium 10 Mg Tablet 10 Mg PO DAILY Sildenafil (Sildenafil Citrate) 20 Mg Tablet 20 Mg PO TID Zetia (Ezetimibe) 10 Mg Tablet 10 Mg PO DAILY Topiramate 100 Mg Tablet 100 Mg PO BID Promethazine Hcl 25 Mg Tablet 25 Mg PO Q6H PRN B-12 (Cyanocobalamin (Vitamin B-12)) 1,000 Mcg Tablet 1,000 Mcg PO DAILY Vascepa (Icosapent Ethyl) 1 Gm Capsule 2 Cap PO BID Aspirin Ec (Aspirin) 81 Mg Tablet.dr 81 Mg PO DAILY Duloxetine Hcl 60 Mg Capsule.dr 60 Mg PO HS Lyrica (Pregabalin) 225 Mg Capsule 225 Mg PO BID Losartan-Hctz 100-25 Mg Tab (Losartan/Hydrochlorothiazide) 1 Each Tablet 25 Mg PO DAILY Mirtazapine 45 Mg Tablet 45 Mg PO HS Amlodipine Besylate 5 Mg Tablet 5 Mg PO DAILY Allergies Allergies: Coded Allergies: No Known Drug Allergies (Unverified , 01/23/14) ROS Review of System UNABLE TO OBTAIN DUE TO CONFUSION Physical Exam General: Alert, Cooperative, No acute distress HEENT: Atraumatic, PERRLA Lungs: Clear to auscultation Heart: Other (BRADYCARDIA) Abdomen: Normal bowel sounds Extremities: No clubbing Skin: No breakdown Neuro: Other (CONFUSED, NO ASYMMETRY) Psych/Mental Status: Other (CONFUSED) MUSCULOSKELETAL: No joint tenderness, Other (LEFT TMA, RIGHT BKA) Vitals VITALS Vital Signs Date Time Temp Pulse Resp B/P (MAP) Pulse Ox O2 Delivery O2 Flow Rate FiO2 07/18/21 06:00 72 20 118/60 100 Nasal Cannula 2.0 07/17/21 17:00 98.4 98.4 Labs Labs Laboratory Tests Test 07/17/21 13:20 07/17/21 14:20 07/17/21 15:45 07/17/21 16:00 White Blood Count 7.9 x10^3/uL (4.0-11.0) Red Blood Count 4.21 x10^6/uL (4.30-5.70) Hemoglobin 11.2 g/dL (13.0-17.5) Hematocrit 35.4 % (39.0-53.0) Mean Corpuscular Volume 84 fL (79-100) Mean Corpuscular Hemoglobin 27 pg (25-35) Mean Corpuscular Hemoglobin Concent 32 g/dL (31-37) Red Cell Distribution Width 20.4 % (11.5-14.5) Platelet Count 167 x10^3/uL (140-400) Neutrophils (%) (Auto) 51 % (31-73) Lymphocytes (%) (Auto) 27 % (24-48) Monocytes (%) (Auto) 8 % (0-9) Eosinophils (%) (Auto) 12 % (0-3) Basophils (%) (Auto) 2 % (0-3) Neutrophils # (Auto) 4.0 x10^3/uL (1.8-7.7) Lymphocytes # (Auto) 2.2 x10^3/uL (1.0-4.8) Monocytes # (Auto) 0.7 x10^3/uL (0.0-1.1) Eosinophils # (Auto) 0.9 x10^3/uL (0.0-0.7) Basophils # (Auto) 0.1 x10^3/uL (0.0-0.2) Platelet Estimate Adequate (ADEQUATE) Poikilocytosis Slight Anisocytosis Mod Prothrombin Time 14.9 SEC (11.7-14.0) Prothromb Time International Ratio 1.2 (0.8-1.1) Activated Partial Thromboplast Time 34 SEC (24-38) Sodium Level 143 mmol/L (136-145) Potassium Level 4.4 mmol/L (3.5-5.1) Chloride Level 101 mmol/L (98-107) Carbon Dioxide Level 22 mmol/L (21-32) Anion Gap 20 (6-14) Blood Urea Nitrogen 67 mg/dL (8-26) Creatinine 8.6 mg/dL (0.7-1.3) Estimated GFR (Cockcroft-Gault) 6.5 BUN/Creatinine Ratio 8 (6-20) Glucose Level 61 mg/dL (70-99) Lactic Acid Level 1.9 mmol/L (0.4-2.0) Calcium Level 9.5 mg/dL (8.5-10.1) Magnesium Level 1.9 mg/dL (1.8-2.4) Total Bilirubin 0.6 mg/dL (0.2-1.0) Aspartate Amino Transf (AST/SGOT) 41 U/L (15-37) Alanine Aminotransferase (ALT/SGPT) 19 U/L (16-63) Alkaline Phosphatase 166 U/L (46-116) Troponin I High Sensitivity 53 ng/L (4-75) Total Protein 7.8 g/dL (6.4-8.2) Albumin 2.9 g/dL (3.4-5.0) Albumin/Globulin Ratio 0.6 (1.0-1.7) Procalcitonin 0.28 ng/mL (0.00-0.10) Salicylates Level 2.0 mg/dL (2.8-20.0) Salicylate Last Dose Date Unknown Salicylate Last Dose Time Unknown Acetaminophen Level < 2 mcg/ml (10-30) Acetaminophen Last Dose Date Unknown Acetaminophen Last Dose Time Unknown Ethyl Alcohol Level < 10 mg/dL (0-10) O2 Saturation 96 % (92-99) Arterial Blood pH 7.31 (7.35-7.45) Arterial Blood pCO2 at Patient Temp 43 mmHg (35-46) Arterial Blood pO2 at Patient Temp 102 mmHg (75-108) Arterial Blood HCO3 21 mmol/L (21-28) Arterial Blood Base Excess -5 mmol/L (-3-3) FiO2 28%/ 2l nc Glucose (Fingerstick) 45 mg/dL (70-99) Urine Collection Type U cath Urine Color Yellow Urine Clarity Turbid Urine pH 6.5 (<5.0-8.0) Urine Specific [place] 1.025 (1.000-1.030) Urine Protein >=300 mg/dL (NEG-TRACE) Urine Glucose (UA) Negative mg/dL (NEG) Urine Ketones (Stick) Negative mg/dL (NEG) Urine Blood Large (NEG) Urine Nitrite Negative (NEG) Urine Bilirubin Small (NEG) Urine Urobilinogen Dipstick 0.2 mg/dL (0.2 mg/dL) Urine Leukocyte Esterase Large (NEG) Urine RBC /HPF (0-2) Urine WBC Tntc /HPF (0-4) Urine Bacteria Few /HPF (0-FEW) Urine Opiates Screen Neg (NEG) Urine Methadone Screen Neg (NEG) Urine Barbiturates Neg (NEG) Urine Phencyclidine Screen Neg (NEG) Urine Amphetamine/Methamphetamine Neg (NEG) Urine Benzodiazepines Screen Neg (NEG) Urine Cocaine Screen Neg (NEG) Urine Cannabinoids Screen Neg (NEG) Urine Ethyl Alcohol Neg (NEG) Test 07/17/21 16:32 07/17/21 16:33 07/18/21 00:10 07/18/21 05:47 Glucose (Fingerstick) 102 mg/dL (70-99) 121 mg/dL (70-99) 182 mg/dL (70-99) SARS-CoV-2 Antigen (Rapid) Negative (NEGATIVE) Laboratory Tests Test 07/17/21 13:20 07/17/21 14:20 07/17/21 15:45 07/17/21 16:00 White Blood Count 7.9 x10^3/uL (4.0-11.0) Red Blood Count 4.21 x10^6/uL (4.30-5.70) Hemoglobin 11.2 g/dL (13.0-17.5) Hematocrit 35.4 % (39.0-53.0) Mean Corpuscular Volume 84 fL (79-100) Mean Corpuscular Hemoglobin 27 pg (25-35) Mean Corpuscular Hemoglobin Concent 32 g/dL (31-37) Red Cell Distribution Width 20.4 % (11.5-14.5) Platelet Count 167 x10^3/uL (140-400) Neutrophils (%) (Auto) 51 % (31-73) Lymphocytes (%) (Auto) 27 % (24-48) Monocytes (%) (Auto) 8 % (0-9) Eosinophils (%) (Auto) 12 % (0-3) Basophils (%) (Auto) 2 % (0-3) Neutrophils # (Auto) 4.0 x10^3/uL (1.8-7.7) Lymphocytes # (Auto) 2.2 x10^3/uL (1.0-4.8) Monocytes # (Auto) 0.7 x10^3/uL (0.0-1.1) Eosinophils # (Auto) 0.9 x10^3/uL (0.0-0.7) Basophils # (Auto) 0.1 x10^3/uL (0.0-0.2) Platelet Estimate Adequate (ADEQUATE) Poikilocytosis Slight Anisocytosis Mod Prothrombin Time 14.9 SEC (11.7-14.0) Prothromb Time International Ratio 1.2 (0.8-1.1) Activated Partial Thromboplast Time 34 SEC (24-38) Sodium Level 143 mmol/L (136-145) Potassium Level 4.4 mmol/L (3.5-5.1) Chloride Level 101 mmol/L (98-107) Carbon Dioxide Level 22 mmol/L (21-32) Anion Gap 20 (6-14) Blood Urea Nitrogen 67 mg/dL (8-26) Creatinine 8.6 mg/dL (0.7-1.3) Estimated GFR (Cockcroft-Gault) 6.5 BUN/Creatinine Ratio 8 (6-20) Glucose Level 61 mg/dL (70-99) Lactic Acid Level 1.9 mmol/L (0.4-2.0) Calcium Level 9.5 mg/dL (8.5-10.1) Magnesium Level 1.9 mg/dL (1.8-2.4) Total Bilirubin 0.6 mg/dL (0.2-1.0) Aspartate Amino Transf (AST/SGOT) 41 U/L (15-37) Alanine Aminotransferase (ALT/SGPT) 19 U/L (16-63) Alkaline Phosphatase 166 U/L (46-116) Troponin I High Sensitivity 53 ng/L (4-75) Total Protein 7.8 g/dL (6.4-8.2) Albumin 2.9 g/dL (3.4-5.0) Albumin/Globulin Ratio 0.6 (1.0-1.7) Procalcitonin 0.28 ng/mL (0.00-0.10) Salicylates Level 2.0 mg/dL (2.8-20.0) Salicylate Last Dose Date Unknown Salicylate Last Dose Time Unknown Acetaminophen Level < 2 mcg/ml (10-30) Acetaminophen Last Dose Date Unknown Acetaminophen Last Dose Time Unknown Ethyl Alcohol Level < 10 mg/dL (0-10) O2 Saturation 96 % (92-99) Arterial Blood pH 7.31 (7.35-7.45) Arterial Blood pCO2 at Patient Temp 43 mmHg (35-46) Arterial Blood pO2 at Patient Temp 102 mmHg (75-108) Arterial Blood HCO3 21 mmol/L (21-28) Arterial Blood Base Excess -5 mmol/L (-3-3) FiO2 28%/ 2l nc Glucose (Fingerstick) 45 mg/dL (70-99) Urine Collection Type U cath Urine Color Yellow Urine Clarity Turbid Urine pH 6.5 (<5.0-8.0) Urine Specific [place] 1.025 (1.000-1.030) Urine Protein >=300 mg/dL (NEG-TRACE) Urine Glucose (UA) Negative mg/dL (NEG) Urine Ketones (Stick) Negative mg/dL (NEG) Urine Blood Large (NEG) Urine Nitrite Negative (NEG) Urine Bilirubin Small (NEG) Urine Urobilinogen Dipstick 0.2 mg/dL (0.2 mg/dL) Urine Leukocyte Esterase Large (NEG) Urine RBC /HPF (0-2) Urine WBC Tntc /HPF (0-4) Urine Bacteria Few /HPF (0-FEW) Urine Opiates Screen Neg (NEG) Urine Methadone Screen Neg (NEG) Urine Barbiturates Neg (NEG) Urine Phencyclidine Screen Neg (NEG) Urine Amphetamine/Methamphetamine Neg (NEG) Urine Benzodiazepines Screen Neg (NEG) Urine Cocaine Screen Neg (NEG) Urine Cannabinoids Screen Neg (NEG) Urine Ethyl Alcohol Neg (NEG) Test 07/17/21 16:32 07/17/21 16:33 07/18/21 00:10 07/18/21 05:47 Glucose (Fingerstick) 102 mg/dL (70-99) 121 mg/dL (70-99) 182 mg/dL (70-99) SARS-CoV-2 Antigen (Rapid) Negative (NEGATIVE) Assessment/Plan Assessment/Plan IMP ESRD-MWF ANEMIA OF ESRD BRADYCARDIA HYPOTENSION FLUID OVERLOAD HYPOGLYCEMIA DM II UTI PLAN ANTIBIOTICS DOP GTT CARDIOLOGY EVAL VINNIE WHEN NEEDED HD DONE LAST NIGHT HD MWF WILL FOLLOW NUBIA PATTON MD Jul 18, 2021 10:51
[2021-07-18 11:15] LABS: BASO # 0.1 x10^3/uL (0.0-0.2); BASO % 1 % (0-3); EOS % 0 % (0-3); HEMATOCRIT 41.8 % (39.0-53.0); HEMOGLOBIN 12.7 g/dL (13.0-17.5); LYMPH # 0.8 x10^3/uL (1.0-4.8); LYMPH % 4 % (24-48); MEAN CORPUSCULAR HEMOGLOBIN 26 pg (25-35); MEAN CORPUSCULAR HGB CONC 30 g/dL (31-37); MEAN CORPUSCULAR VOLUME 86 fL (79-100); MONO # 0.8 x10^3/uL (0.0-1.1); MONO % 4 % (0-9); NEUT # 18.3 x10^3/uL (1.8-7.7); NEUT % 91 % (31-73); PLATELET COUNT 193 x10^3/uL (140-400); RED BLOOD COUNT 4.87 x10^6/uL (4.30-5.70); RED CELL DISTRIBUTION WIDTH 20.4 % (11.5-14.5); WHITE BLOOD COUNT 20.1 x10^3/uL (4.0-11.0)
[2021-07-18 11:27] LABS: ALBUMIN/GLOBULIN RATIO 0.5 (1.0-1.7); CALCIUM 9.5 mg/dL (8.5-10.1); CREATININE 6.3 mg/dL (0.7-1.3); GFR 9.3; POTASSIUM 3.9 mmol/L (3.5-5.1); TOTAL BILIRUBIN 0.9 mg/dL (0.2-1.0); TOTAL PROTEIN 8.7 g/dL (6.4-8.2)
[2021-07-18] MEDS ORDERED: ONDANSETRON PF 4 MG/2 ML VIAL. IVP PRN (13:15)
[2021-07-18] MEDS: PIPERACILLIN/TAZOBACTAM 2.25 GM in IV NORMAL SALINE 50ML 50 ML IV SCH ×2 (13:21→21:54)
[2021-07-18] MEDS: IV RINGERS,LACTATED 1000ML 1,000 ML IV SCH (13:22)
[2021-07-18] MEDS ORDERED: IV DEXTROSE 5% 250 ML BAG. IV PRN (13:30)
[2021-07-18] MEDS ORDERED: DEXTROSE 50% 25 GM / 50ML DISP.SYRIN. IV PRN (13:30)
[2021-07-18 13:38] LABS: % BANDS 18 % (0-9); % LYMPHS 3 % (24-48); % MONOS 3 % (0-10); % SEGS 76 % (35-66)
[2021-07-18 13:40] LABS: ANISOCYTOSIS SLIGHT; PLT ESTIMATE ADEQUATE (ADEQUATE)
[2021-07-18] MEDS: VANCOMYCIN PER PHARMACY MC PRN (13:40)
[2021-07-18] MEDS: INSULIN LISPRO 300 UNITS/3 ML VIAL. SQ SCH ×2 (13:56→18:25)
--- NOTE | 2021-07-18 14:42 | PDOC2 ---
NEUROLOGY CONSULT Date of Service DOS: DATE: 07/18/21 TIME: 14:25 Reason for Consult Reason for Consult: Altered mental status, possible seizures Referring Physician Referring Physician: Dr. Valle Source Source: Chart review, Patient History of Present Illness History of Present Illness The patient is a 55-year-old right-handed male who was noted to have altered mental status at home yesterday. He missed dialysis because no Joi lift was available to mobilize him at the dialysis center. He was less responsive than usual, having staring episodes which his sister was concerned represented absent seizures. In the emergency department he was somnolent, bradycardic with heart rate in the 40s, hypotensive with blood pressure 80/40 with laboratory showing lactic acidosis and hypoglycemia as well as evidence for urinary tract infection. He is well-known to me, I last saw during his 05/26-06/27 lengthy hospital stay. At that time he had metabolic encephalopathy and COVID-19 infection. I have seen in the past for psychogenic nonepileptic seizures (had negative long-term video EEG monitoring 07/03-). Nonetheless, he carries through with a diagnosis of epilepsy and remains on Keppra and Topamax. 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 He was supposed to be transferred out to jail or [facility] rehab. Apparently he was at home when the episode happened yesterday. Patient is much more alert today. Note that he also has a history of hypotension requiring midodrine. Past Medical History Cardiovascular: AFIB, CAD, CHF, HTN Pulmonary: COPD, Pneumonia, Other (Sleep apnea) CENTRAL NERVOUS SYSTEM: CVA, Periperal neuropathy, Seizure (Psychogenic nonepileptic) GI: Constipation, GERD Heme/Onc: Anemia NOS Psych: Depression Renal/: Chronic renal failure, Urinary Incontinence, Other (Nephrolithiasis) Endocrine: Diabetes Past Surgical History Past Surgical History: Cholecystectomy, CABG, Other (left BKA, coronary stent) Family History Family History: No pertinent hx Social History Social History No tobacco or alcohol Current Medications Current Medications Current Medications Atropine Sulfate (ATROPINE 1mg SYRINGE) 1 mg STK-MED ONCE .ROUTE ; Start 07/17/21 at 13:30; Stop 07/17/21 at 13:30; Status DC Sodium Chloride 250 ml @ 500 mls/hr 1X ONCE IV Last administered on 07/17/21at 13:48; Start 07/17/21 at 13:30; Stop 07/17/21 at 13:59; Status DC Piperacillin Sod/ Tazobactam Sod 2.25 gm/Sodium Chloride 50 ml @ 100 mls/hr 1X ONCE IV Last administered on 07/17/21 14:32; Start 07/17/21 at 13:30; Stop 07/17/21 at 13:59; Status DC Vancomycin HCl (Vanco Per Pharmacy) 1 each PRN DAILY PRN MC SEE COMMENTS Last administered on 07/18/21at 13:40; Start 07/17/21 at 13:30 Levetiracetam 100 ml @ 400 mls/hr Q12HR IV Last administered on 07/17/21at 23:03; Start 07/17/21 at 21:00; Stop 07/18/21 at 09:47; Status DC Atropine Sulfate (ATROPINE 0.5mg SYRINGE) 1 mg 1X ONCE IV Last administered on 07/17/21at 13:32; Start 07/17/21 at 13:30; Stop 07/17/21 at 13:42; Status DC Calcium Gluconate (Calcium Gluconate) 1,000 mg 1X ONCE IVP Last administered on 07/17/21at 13:25; Start 07/17/21 at 13:30; Stop 07/17/21 at 13:42; Status DC Epinephrine HCl 5 mg/Sodium Chloride 255 ml @ 21.114 mls/ hr CONT PRN IV SEE I/O RECORD Last administered on 07/17/21at 14:17; Start 07/17/21 at 13:45 Vancomycin HCl 1.75 gm/Sodium Chloride 500 ml @ 250 mls/hr 1X ONCE IV Last administered on 07/17/21at 15:00; Start 07/17/21 at 15:00; Stop 07/17/21 at 16:59; Status DC Dopamine HCl/ Dextrose 250 ml @ 12.994 mls/ hr 1X ONCE IV Last administered on 07/17/21at 14:56; Start 07/17/21 at 14:15; Stop 07/18/21 at 09:29; Status DC Dextrose (Dextrose 50%-Water Syringe) 25 gm 1X ONCE IV Last administered on 07/17/21at 15:56; Start 07/17/21 at 16:15; Stop 07/17/21 at 16:16; Status DC Dextrose 1,000 ml @ 125 mls/hr 1X ONCE IV ; Start 07/17/21 at 16:15; Stop 07/18/21 at 00:14; Status DC Ondansetron HCl (Zofran) 4 mg PRN Q8HRS PRN IVP NAUSEA/VOMITING Last administered on 07/18/21at 07:41; Start 07/17/21 at 16:30; Stop 07/18/21 at 13:18; Status DC Sodium Chloride 1,000 ml @ 1,000 mls/hr Q1H PRN IV hypotension; Start 07/17/21 at 18:00; Stop 07/17/21 at 23:59; Status DC Sodium Chloride 1,000 ml @ 400 mls/hr Q2H30M PRN IV PATENCY; Start 07/17/21 at 18:00; Stop 07/18/21 at 05:59; Status DC Info (PHARMACY MONITORING -- do not chart) 1 each PRN DAILY PRN MC SEE COMMENTS; Start 07/17/21 at 18:00 Piperacillin Sod/ Tazobactam Sod (Zosyn Per Pharmacy) 1 each PRN DAILY PRN MC SEE COMMENTS; Start 07/18/21 at 09:30 Vancomycin HCl (Vanco Per Pharmacy) 1 each PRN DAILY PRN MC SEE COMMENTS; Start 07/18/21 at 09:30; Status UNV Levetiracetam 100 ml @ 400 mls/hr Q48H IV ; Start 07/19/21 at 21:00 Piperacillin Sod/ Tazobactam Sod 2.25 gm/Sodium Chloride 50 ml @ 100 mls/hr Q8HRS IV Last administered on 07/18/21at 13:21; Start 07/18/21 at 14:00 Ringer's Solution 1,000 ml @ 75 mls/hr [id number] IV Last administered on 07/18/21at 13:22; Start 07/18/21 at 12:00 Ondansetron HCl (Zofran) 4 mg PRN Q4HRS PRN IVP NAUSEA/VOMITING Last administered on 07/18/21at 13:27; Start 07/18/21 at 13:15; Stop 07/19/21 at 13:14 Insulin Human Lispro (HumaLOG) 0-5 UNITS Q6H SQ Last administered on 07/18/21at 13:56; Start 07/18/21 at 13:30 Dextrose (Dextrose 50%-Water Syringe) 12.5 gm PRN Q15MIN PRN IV SEE COMMENTS; Start 07/18/21 at 13:30 Dextrose (Iv Dextrose 5%) 250 ml PRN Q15MIN PRN IV SEE COMMENTS; Start 07/18/21 at 13:30 Vancomycin HCl (Vancomycin Random Level) 1 each 1X ONCE MC ; Start 07/19/21 at 06:00; Stop 07/19/21 at 06:01 Active Scripts Active Metoprolol Succinate 50 Mg Tab.er.24h 50 Mg PO DAILY 30 Days Levetiracetam 500 Mg Tablet 500 Mg PO BID 30 Days Reported Seroquel (Quetiapine Fumarate) 25 Mg Tablet 1 Tab PO QHS Mupirocin Cream (Mupirocin) 15 Gm Cream..g. 1 Ruth TP BID 10 Days Acidophilus (Lactobacillus Acidophilus) 100 Mg Capsule 1 Cap PO BID 30 Days Pantoprazole Sodium (Pantoprazole Sodium) 40 Mg Tablet.dr 40 Mg PO DAILYAC Trazodone Hcl 50 Mg Tablet 1 Tab PO QHS Xultophy 100 Unit-3.6 mg/ml (Insulin Degludec/Liraglutide) 3 Ml Insuln.pen 24 Ml SQ HS Vitamin D (Cholecalciferol (Vitamin D3)) 1,000 Unit Capsule 1 Cap PO DAILY Atorvastatin Calcium 10 Mg Tablet 10 Mg PO DAILY Sildenafil (Sildenafil Citrate) 20 Mg Tablet 20 Mg PO TID Zetia (Ezetimibe) 10 Mg Tablet 10 Mg PO DAILY Topiramate 100 Mg Tablet 100 Mg PO BID Promethazine Hcl 25 Mg Tablet 25 Mg PO Q6H PRN B-12 (Cyanocobalamin (Vitamin B-12)) 1,000 Mcg Tablet 1,000 Mcg PO DAILY Vascepa (Icosapent Ethyl) 1 Gm Capsule 2 Cap PO BID Aspirin Ec (Aspirin) 81 Mg Tablet.dr 81 Mg PO DAILY Duloxetine Hcl 60 Mg Capsule.dr 60 Mg PO HS Lyrica (Pregabalin) 225 Mg Capsule 225 Mg PO BID Losartan-Hctz 100-25 Mg Tab (Losartan/Hydrochlorothiazide) 1 Each Tablet 25 Mg PO DAILY Mirtazapine 45 Mg Tablet 45 Mg PO HS Amlodipine Besylate 5 Mg Tablet 5 Mg PO DAILY Allergies Allergies: Coded Allergies: No Known Drug Allergies (Unverified , 01/23/14) ROS Review of System Negative for fever, chills, weight loss, shortness of breath, chest pain, indigestion, hematochezia, melena, and dysuria. Full 14-point review of systems is negative. Physical Exam Physical Examination General: Well-developed, well-nourished, white male, in no acute distress HEENT: Normocephalic andatraumatic. Temporal arteriespulsatile and nontender. Neck: Supple without bruit, no meningismus Musculoskeletal: Stability:see neurologic. Gait exam:see neurologic. Tone:see neurologic.Strength:see neurologic. Neurological: Mental Status:orientation, memory, attention span/concentration, language, fund of knowledge: Knows location, not date, does not know name of president, names and repeats, follows simple commands. Cranial Nerves:Pupils equal and reactive to light, extraocular movements areintact, visual mills are full to confrontation. Facial sensation is normal. There is no facial asymmetry. Vestibulo-ocular reflex is intact. Palate elevates and tongue protrudes in midline. All other cranial related problems are negative except as mentioned before.Reflexes:0+ and symmetric with flexor plantar response on the right, left below the knee amputation. Motor:3-4/5 strength with normal tone and bulk. Coordination:Finger-nose finger is normal. Rapid alternating movements and fine finger movements are intact. Gait:not tested. Sensory:Stocking loss Vitals VITALS Vital Signs Date Time Temp Pulse Resp B/P (MAP) Pulse Ox O2 Delivery O2 Flow Rate FiO2 07/18/21 06:00 72 20 118/60 100 Nasal Cannula 2.0 07/17/21 17:00 98.4 98.4 Labs Labs Laboratory Tests Test 07/17/21 13:20 07/17/21 14:20 07/17/21 15:45 07/17/21 16:00 White Blood Count 7.9 x10^3/uL (4.0-11.0) Red Blood Count 4.21 x10^6/uL (4.30-5.70) Hemoglobin 11.2 g/dL (13.0-17.5) Hematocrit 35.4 % (39.0-53.0) Mean Corpuscular Volume 84 fL (79-100) Mean Corpuscular Hemoglobin 27 pg (25-35) Mean Corpuscular Hemoglobin Concent 32 g/dL (31-37) Red Cell Distribution Width 20.4 % (11.5-14.5) Platelet Count 167 x10^3/uL (140-400) Neutrophils (%) (Auto) 51 % (31-73) Lymphocytes (%) (Auto) 27 % (24-48) Monocytes (%) (Auto) 8 % (0-9) Eosinophils (%) (Auto) 12 % (0-3) Basophils (%) (Auto) 2 % (0-3) Neutrophils # (Auto) 4.0 x10^3/uL (1.8-7.7) Lymphocytes # (Auto) 2.2 x10^3/uL (1.0-4.8) Monocytes # (Auto) 0.7 x10^3/uL (0.0-1.1) Eosinophils # (Auto) 0.9 x10^3/uL (0.0-0.7) Basophils # (Auto) 0.1 x10^3/uL (0.0-0.2) Platelet Estimate Adequate (ADEQUATE) Poikilocytosis Slight Anisocytosis Mod Prothrombin Time 14.9 SEC (11.7-14.0) Prothromb Time International Ratio 1.2 (0.8-1.1) Activated Partial Thromboplast Time 34 SEC (24-38) Sodium Level 143 mmol/L (136-145) Potassium Level 4.4 mmol/L (3.5-5.1) Chloride Level 101 mmol/L (98-107) Carbon Dioxide Level 22 mmol/L (21-32) Anion Gap 20 (6-14) Blood Urea Nitrogen 67 mg/dL (8-26) Creatinine 8.6 mg/dL (0.7-1.3) Estimated GFR (Cockcroft-Gault) 6.5 BUN/Creatinine Ratio 8 (6-20) Glucose Level 61 mg/dL (70-99) Lactic Acid Level 1.9 mmol/L (0.4-2.0) Calcium Level 9.5 mg/dL (8.5-10.1) Magnesium Level 1.9 mg/dL (1.8-2.4) Total Bilirubin 0.6 mg/dL (0.2-1.0) Aspartate Amino Transf (AST/SGOT) 41 U/L (15-37) Alanine Aminotransferase (ALT/SGPT) 19 U/L (16-63) Alkaline Phosphatase 166 U/L (46-116) Troponin I High Sensitivity 53 ng/L (4-75) Total Protein 7.8 g/dL (6.4-8.2) Albumin 2.9 g/dL (3.4-5.0) Albumin/Globulin Ratio 0.6 (1.0-1.7) Procalcitonin 0.28 ng/mL (0.00-0.10) Salicylates Level 2.0 mg/dL (2.8-20.0) Salicylate Last Dose Date Unknown Salicylate Last Dose Time Unknown Acetaminophen Level < 2 mcg/ml (10-30) Acetaminophen Last Dose Date Unknown Acetaminophen Last Dose Time Unknown Ethyl Alcohol Level < 10 mg/dL (0-10) O2 Saturation 96 % (92-99) Arterial Blood pH 7.31 (7.35-7.45) Arterial Blood pCO2 at Patient Temp 43 mmHg (35-46) Arterial Blood pO2 at Patient Temp 102 mmHg (75-108) Arterial Blood HCO3 21 mmol/L (21-28) Arterial Blood Base Excess -5 mmol/L (-3-3) FiO2 28%/ 2l nc Glucose (Fingerstick) 45 mg/dL (70-99) Urine Collection Type U cath Urine Color Yellow Urine Clarity Turbid Urine pH 6.5 (<5.0-8.0) Urine Specific [place] 1.025 (1.000-1.030) Urine Protein >=300 mg/dL (NEG-TRACE) Urine Glucose (UA) Negative mg/dL (NEG) Urine Ketones (Stick) Negative mg/dL (NEG) Urine Blood Large (NEG) Urine Nitrite Negative (NEG) Urine Bilirubin Small (NEG) Urine Urobilinogen Dipstick 0.2 mg/dL (0.2 mg/dL) Urine Leukocyte Esterase Large (NEG) Urine RBC /HPF (0-2) Urine WBC Tntc /HPF (0-4) Urine Bacteria Few /HPF (0-FEW) Urine Opiates Screen Neg (NEG) Urine Methadone Screen Neg (NEG) Urine Barbiturates Neg (NEG) Urine Phencyclidine Screen Neg (NEG) Urine Amphetamine/Methamphetamine Neg (NEG) Urine Benzodiazepines Screen Neg (NEG) Urine Cocaine Screen Neg (NEG) Urine Cannabinoids Screen Neg (NEG) Urine Ethyl Alcohol Neg (NEG) Test 07/17/21 16:32 07/17/21 16:33 07/18/21 00:10 07/18/21 05:47 Glucose (Fingerstick) 102 mg/dL (70-99) 121 mg/dL (70-99) 182 mg/dL (70-99) SARS-CoV-2 Antigen (Rapid) Negative (NEGATIVE) Test 07/18/21 09:45 07/18/21 10:03 07/18/21 13:51 White Blood Count 20.1 x10^3/uL (4.0-11.0) Red Blood Count 4.87 x10^6/uL (4.30-5.70) Hemoglobin 12.7 g/dL (13.0-17.5) Hematocrit 41.8 % (39.0-53.0) Mean Corpuscular Volume 86 fL (79-100) Mean Corpuscular Hemoglobin 26 pg (25-35) Mean Corpuscular Hemoglobin Concent 30 g/dL (31-37) Red Cell Distribution Width 20.4 % (11.5-14.5) Platelet Count 193 x10^3/uL (140-400) Neutrophils (%) (Auto) 91 % (31-73) Lymphocytes (%) (Auto) 4 % (24-48) Monocytes (%) (Auto) 4 % (0-9) Eosinophils (%) (Auto) 0 % (0-3) Basophils (%) (Auto) 1 % (0-3) Neutrophils # (Auto) 18.3 x10^3/uL (1.8-7.7) Lymphocytes # (Auto) 0.8 x10^3/uL (1.0-4.8) Monocytes # (Auto) 0.8 x10^3/uL (0.0-1.1) Eosinophils # (Auto) 0.0 x10^3/uL (0.0-0.7) Basophils # (Auto) 0.1 x10^3/uL (0.0-0.2) Segmented Neutrophils % 76 % (35-66) Band Neutrophils % 18 % (0-9) Lymphocytes % 3 % (24-48) Monocytes % 3 % (0-10) Platelet Estimate Adequate (ADEQUATE) Anisocytosis Slight Sodium Level 141 mmol/L (136-145) Potassium Level 3.9 mmol/L (3.5-5.1) Chloride Level 95 mmol/L (98-107) Carbon Dioxide Level 20 mmol/L (21-32) Anion Gap 26 (6-14) Blood Urea Nitrogen 47 mg/dL (8-26) Creatinine 6.3 mg/dL (0.7-1.3) Estimated GFR (Cockcroft-Gault) 9.3 BUN/Creatinine Ratio 7 (6-20) Glucose Level 217 mg/dL (70-99) Calcium Level 9.5 mg/dL (8.5-10.1) Total Bilirubin 0.9 mg/dL (0.2-1.0) Aspartate Amino Transf (AST/SGOT) 29 U/L (15-37) Alanine Aminotransferase (ALT/SGPT) 19 U/L (16-63) Alkaline Phosphatase 185 U/L (46-116) Lactate Dehydrogenase 171 U/L (85-227) Total Protein 8.7 g/dL (6.4-8.2) Albumin 3.0 g/dL (3.4-5.0) Albumin/Globulin Ratio 0.5 (1.0-1.7) Lipase 18 U/L (73-393) Glucose (Fingerstick) 223 mg/dL (70-99) 289 mg/dL (70-99) Laboratory Tests Test 07/17/21 15:45 07/17/21 16:00 07/17/21 16:32 07/17/21 16:33 Glucose (Fingerstick) 45 mg/dL (70-99) 102 mg/dL (70-99) Urine Collection Type U cath Urine Color Yellow Urine Clarity Turbid Urine pH 6.5 (<5.0-8.0) Urine Specific [place] 1.025 (1.000-1.030) Urine Protein >=300 mg/dL (NEG-TRACE) Urine Glucose (UA) Negative mg/dL (NEG) Urine Ketones (Stick) Negative mg/dL (NEG) Urine Blood Large (NEG) Urine Nitrite Negative (NEG) Urine Bilirubin Small (NEG) Urine Urobilinogen Dipstick 0.2 mg/dL (0.2 mg/dL) Urine Leukocyte Esterase Large (NEG) Urine RBC /HPF (0-2) Urine WBC Tntc /HPF (0-4) Urine Bacteria Few /HPF (0-FEW) Urine Opiates Screen Neg (NEG) Urine Methadone Screen Neg (NEG) Urine Barbiturates Neg (NEG) Urine Phencyclidine Screen Neg (NEG) Urine Amphetamine/Methamphetamine Neg (NEG) Urine Benzodiazepines Screen Neg (NEG) Urine Cocaine Screen Neg (NEG) Urine Cannabinoids Screen Neg (NEG) Urine Ethyl Alcohol Neg (NEG) SARS-CoV-2 Antigen (Rapid) Negative (NEGATIVE) Test 07/18/21 00:10 07/18/21 05:47 07/18/21 09:45 07/18/21 10:03 Glucose (Fingerstick) 121 mg/dL (70-99) 182 mg/dL (70-99) 223 mg/dL (70-99) White Blood Count 20.1 x10^3/uL (4.0-11.0) Red Blood Count 4.87 x10^6/uL (4.30-5.70) Hemoglobin 12.7 g/dL (13.0-17.5) Hematocrit 41.8 % (39.0-53.0) Mean Corpuscular Volume 86 fL (79-100) Mean Corpuscular Hemoglobin 26 pg (25-35) Mean Corpuscular Hemoglobin Concent 30 g/dL (31-37) Red Cell Distribution Width 20.4 % (11.5-14.5) Platelet Count 193 x10^3/uL (140-400) Neutrophils (%) (Auto) 91 % (31-73) Lymphocytes (%) (Auto) 4 % (24-48) Monocytes (%) (Auto) 4 % (0-9) Eosinophils (%) (Auto) 0 % (0-3) Basophils (%) (Auto) 1 % (0-3) Neutrophils # (Auto) 18.3 x10^3/uL (1.8-7.7) Lymphocytes # (Auto) 0.8 x10^3/uL (1.0-4.8) Monocytes # (Auto) 0.8 x10^3/uL (0.0-1.1) Eosinophils # (Auto) 0.0 x10^3/uL (0.0-0.7) Basophils # (Auto) 0.1 x10^3/uL (0.0-0.2) Segmented Neutrophils % 76 % (35-66) Band Neutrophils % 18 % (0-9) Lymphocytes % 3 % (24-48) Monocytes % 3 % (0-10) Platelet Estimate Adequate (ADEQUATE) Anisocytosis Slight Sodium Level 141 mmol/L (136-145) Potassium Level 3.9 mmol/L (3.5-5.1) Chloride Level 95 mmol/L (98-107) Carbon Dioxide Level 20 mmol/L (21-32) Anion Gap 26 (6-14) Blood Urea Nitrogen 47 mg/dL (8-26) Creatinine 6.3 mg/dL (0.7-1.3) Estimated GFR (Cockcroft-Gault) 9.3 BUN/Creatinine Ratio 7 (6-20) Glucose Level 217 mg/dL (70-99) Calcium Level 9.5 mg/dL (8.5-10.1) Total Bilirubin 0.9 mg/dL (0.2-1.0) Aspartate Amino Transf (AST/SGOT) 29 U/L (15-37) Alanine Aminotransferase (ALT/SGPT) 19 U/L (16-63) Alkaline Phosphatase 185 U/L (46-116) Lactate Dehydrogenase 171 U/L (85-227) Total Protein 8.7 g/dL (6.4-8.2) Albumin 3.0 g/dL (3.4-5.0) Albumin/Globulin Ratio 0.5 (1.0-1.7) Lipase 18 U/L (73-393) Test 07/18/21 13:51 Glucose (Fingerstick) 289 mg/dL (70-99) Images Images CT HEAD/BRAIN WO, 07/17/2021 2:04 PM Indication: Reason: AMS / Spl. Instructions: / History: . TECHNIQUE: Head CT was performed without intravenous contrast. One or more of the following dose reduction techniques were utilized: *Automated exposure control (AEC) *Adjustment of mA and/or kV according to patient size *Use of iterative reconstruction technique *CT scan done according to ALARA, or ALARA/IMAGE GENTLY COMPARISON: May 26, 2021 FINDINGS: Left occipital encephalomalacia is again seen consistent with remote infarct. Chronic right basal ganglia lacunar infarct noted. The ventricles and sulci are prominent consistent with cerebral volume loss. Patchy ill-defined low attenuation areas in the subcortical and periventricular white matter bilaterally are consistent with microvascular disease. There is no evidence of acute intracranial hemorrhage, extra-axial collection, mass effect, midline shift, or acute territorial infarct. No lesion of the skull base or the calvarium is seen. The visualized paranasal sinuses, mastoid air cells and orbits are normal in appearance. IMPRESSION: No evidence for acute intracranial abnormality. Chronic infarcts are again seen. Volume loss and microvascular disease. Assessment/Plan Assessment/Plan Impression: Metabolic encephalopathy, plenty of metabolic issues to explain his altered mental status, I do not think he had recurrent seizures. No evidence of recurrence of subdural hematoma; chronic right basal ganglia and left parietal infarcts. History of psychogenic nonepileptic seizures, still taking levetiracetam. I have been hesitant to stop this as we never prove that he had psychogenic seizures, just had a negative work-up for organic epilepsy Anemia, end-stage renal disease on dialysis, hypoglycemia, UTI, hypotension, Type 1 diabetes with neuropathy, metabolic acidosis Also has history of atrial fibrillation, coronary artery disease, hypertension, peripheral artery disease, COVID Recommendations: Continue to treat medical issues No additional neurological investigations required Neurology will follow at intervals Thank you for letting me help with the patient's care. PAOLA DICK MD Jul 18, 2021 14:42
--- NOTE | 2021-07-18 15:17 | RAD ---
Study: CT abdomen/pelvis without intravenous contrast Indication: Diffuse abdominal pain. Recurrent bouts of nausea and vomiting. Comparison: CT abdomen/pelvis 01/23/2014; CT chest 09/13/2017 Technique: Helical CT imaging performed of the abdomen and pelvis without the use of intravenous cont rast. Sagittal and coronal reformats were obtained. One or more of the following individualized dose reduction techniques were utilized for this examinat ion: 1. Automated exposure control 2. Adjustment of the mA and/or kV according to patient size 3. Use of iterative reconstruction technique. Findings: Inherently limited evaluation without intravenous contrast. Central venous catheter tip terminating at the upper right atrium. Calcific coronary artery disease. Small hiatal hernia. Limited evaluation of the lower esophageal wall. There is fluid/debris within th e distal esophageal lumen. No surrounding inflammation. Median sternotomy changes. Groundglass and no dular infiltrates at the lower lungs in addition to mild atelectasis. Posterior left lower lobe pleur al-based nodule measures 5 mm. No discrete liver lesion. Absent gallbladder. No significant dilatation of the biliary tree. Partiall y atrophic pancreas. Within normal limits size of the spleen. Unremarkable adrenal glands. Small size of the kidneys with areas of cortical thinning. No hydronephrosis. Circumferential wall thickening o f the urinary bladder noting incomplete distention. Mild wall thickening also present on the 2014 com parison. The prostate measures 4 cm transverse. Mild constipation. Mild colonic wall thickening at a few locations such as at the mid to distal sigmo id but felt unlikely related to an active colitis. Unremarkable appendix, image 75 series 2. No patho logic dilatation of small bowel. Distended stomach with gas and ingested material. No cause for mecha nical gastric outlet obstruction apparent by CT. No gastric wall emphysema. Multifocal calcific atherosclerosis. Similarly sized mildly prominent inguinal lymph nodes from 2014. Mesenteric and body wall edema. Small volume ascites. Straightening of lumbar lordosis. Minimal curvature. Scattered degenerative changes. Impression: 1. Distended stomach with gas and ingested material. No obstructing process is seen or gastric wall emphysema. There is also some luminal distention of the distal esophagus. The findings are nonspecifi c but could be related to gastroparesis. If there is concern for mechanical gastric outlet obstructio n consider endoscopy. 2. Lower lung groundglass and nodular airspace infiltrates concerning for an atypical pneumonia and/ or aspiration. Consider follow-up in 3-6 months to confirm resolution of the nodules. 3. Volume overload state with small volume ascites and mesenteric/body wall edema. 4. Mild constipation. 5. Small size of the kidneys as can be seen with chronic kidney disease. No hydronephrosis. 6. [place] calcific coronary artery disease. Median sternotomy changes appearing relatively recent. 7. Chronic observations described in the body of the report. Electronically signed by: KONSTANTIN SERRANO MD (07/18/2021 3:14 PM) [facility]
--- NOTE | 2021-07-18 18:44 | HP ---
DATE OF SERVICE: 07/18/2021 ADMIT DATE: 07/17/2021 HISTORY OF PRESENT ILLNESS: The patient is a 55-year-old male patient who was brought to the Emergency Room of [facility] with altered mental status. He is known to have multitude of medical problems and has had a prolonged stay in [facility] recently as he underwent a left below-knee amputation and was discharged to [facility] and from there, he was sent home with home health; however, apparently his sister was unable to take care of himself and she brought him to the Emergency Room. He missed his dialysis yesterday because no Joi lift was available to mobilize him at the dialysis center. His family reported he was at his baseline until around breakfast time when he was noted to be less responsive than usual. 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 Therefore, she called the EMS to transport him to the hospital. Upon initial evaluation in the Emergency Room, he was somnolent, but arousable and was able to follow commands with both hands. He was bradycardic with a heart rate of around 40 and hypotensive with a blood pressure in the 80s/40s; however, he was oxygenating appropriately on about 2 liters by nasal cannula. He was afebrile. His rhythm on the monitor showed atrial flutter. He was very lethargic and did not provide any history. He was extensively evaluated in the Emergency Room and has had lab work as well as imaging studies. His lab work showed that his white cell count was normal at 7.9 with a normochromic normocytic anemia and his chemistry showed that he was hypoglycemic with a blood sugar of 45. His procalcitonin was high at 0.28. He is known to have end-stage renal disease, on hemodialysis; however, his potassium was only 4.4. His blood gases showed a pH of 7.31, pCO2 of 43, pO2 102, bicarbonate 21, oxygen saturation was 96% on 2 liters of oxygen. His prothrombin time and INR were slightly elevated, APTT was normal. Urinalysis showed the urine was yellow, turbid with a pH of 6.5, specific gravity 1.025 and there was large amount of protein. The urine was negative for glucose, ketones. There was large amount of blood, large amount of leukocyte esterase, too numerous to count wbc's. His toxic screen was essentially negative and his coronavirus by rapid testing was negative. His head CT scan showed that the patient has no evidence of acute intracranial abnormality, a chronic infarct are again seen. He has left occipital encephalomalacia is again seen consistent with remote infarct and chronic right basal ganglia lacunar infarct noted. The ventricles and sulci are prominent consistent with cerebral volume loss, patchy ill-defined low attenuation areas in the subcortical and periventricular white matter bilaterally are consistent with microvascular disease. There is no evidence of acute intracranial hemorrhage, extraaxial collection, mass effect, midline shift or acute territorial infarction. No lesion of the skull base or the calvarium is seen. The visualized paranasal sinuses, mastoid air cells and orbits are normal in appearance. His chest x-ray showed dual lumen central venous catheter terminates in the superior vena cava, superior cavoatrial junction, median sternotomy wires, similar prominence of the cardiomediastinal silhouette also present previously are increased interstitial marking and hazy attenuation in both lungs. No layering effusion, no pneumothorax. He is considering that apices are not included in the field of view. The patient, who was admitted, was seen in consultation by the Cardiology team and was started on dopamine for hypertension and bradycardia. His beta blockers were put on hold. We did start him on IV antibiotic as well as consulted the Nephrology team for hemodialysis. PAST MEDICAL HISTORY: Significant for: 1. Insulin-dependent type 1 diabetes mellitus. 2. Atrial fibrillation, rate controlled, not anticoagulated. 3. Coronary artery disease status post coronary artery bypass graft surgery. 4. End-stage renal disease, on hemodialysis. 5. Ischemic cardiomyopathy. 6. Hypertension. 7. Cerebrovascular accident with left occipital infarct and basal wall infarct. 8. Peripheral neuropathy. 9. Seizure disorder. 10. Peripheral vascular disease. 11. He has also left transmetatarsal amputation and eventually left below-knee amputation. 12. He also has anemia of chronic kidney disease. PAST SURGICAL HISTORY: Significant for left carotid artery endarterectomy, coronary artery bypass graft surgery as well as a left upper extremity arteriovenous graft creation and removal, incision and drainage of the left foot, left transmetatarsal amputation as well as left below-knee amputation and esophagogastroduodenoscopy. ALLERGIES: HE IS ALLERGIC TO STATINS. FAMILY HISTORY: His father at age of 55 secondary to cerebrovascular accident. Mother is still alive. She has 2 sisters, both alive and have HIV. SOCIAL HISTORY: He used to live with his mother and sister, has a son and a daughter. He continues to smoke, but does not drink alcohol or use recreational drugs. 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 He is . MEDICATIONS: He is currently on the following medications: He is currently on promethazine 25 mg p.o. every 6 hours, Zetia 10 mg once a day, atorvastatin 10 mg daily. He is on Vascepa 2 capsules twice a day, sildenafil citrate 20 mg 3 times a day. He is on amlodipine besylate 5 mg once a day, losartan/hydrochlorothiazide 25 mg once a day, aspirin 81 mg once a day, Keppra 500 mg twice a day, pregabalin 225 mg twice a day, topiramate 100 mg twice a day, duloxetine 60 mg at bedtime, mirtazapine 45 mg at bedtime, trazodone 50 mg at bedtime. He is on Seroquel 25 mg at bedtime, Lactobacillus acidophilus 1 capsule twice a day, Protonix 40 mg once a day. He is on Lantus insulin 24 units at bedtime, mupirocin or Bactroban ointment twice a day and cyanocobalamin 1000 mcg once a day, cholecalciferol, vitamin D 1000 international unit once a day. PHYSICAL EXAMINATION: GENERAL: On arrival to the Emergency Room, the patient was pale, cachectic, but not jaundiced or cyanosed. No lymphadenopathy, no thyromegaly, no jugular venous distention. No limb edema. VITAL SIGNS: His heart rate was 46, blood pressure was 73/40, temperature 97.7, respiratory rate 20, and oxygen saturation was 100% on room air. HEAD, EYES, EARS, NOSE AND THROAT: Normocephalic, atraumatic. NECK: Supple. HEART: Normal first and second heart sounds. No gallop or murmur. CHEST: Shows central trachea, equal bilateral expansion, air entry, vesicular breath sounds. I could not appreciate any crepitation or rhonchi. ABDOMEN: Scaphoid, soft, mildly diffuse tenderness. No guarding or rigidity. No organomegaly. All hernial orifice intact. Bowel sounds normal. NEUROLOGIC: He was very lethargic, but arousable. All his cranial nerves intact. He moves upper extremities without difficulty, he is mostly bedbound, wheelchair bound. LABORATORY DATA: On arrival showed a white cell count 7900, hemoglobin 11, hematocrit 35, MCV 84 and platelet count of 167,000. His chemistry showed that his serum sodium was 143, potassium 4.4, chloride 101, bicarbonate 22, anion gap of 20, BUN 67, creatinine 8.6. Estimated GFR was 6.5 mL per minute. His glucose was 61. Lactic acid was 1.9, calcium was 9.5, magnesium was 1.9. Total bilirubin, AST, ALT were normal. Alkaline phosphatase slightly elevated. Troponin I high sensitivity was 53. Total protein was 7.8, albumin was 2.9. His arterial blood gas showed a pH of 7.31, pCO2 of 43, pO2 102, bicarbonate 21 and oxygen saturation was 96% on 2 liters of oxygen. ASSESSMENT AND PLAN: In summary, this is a 55-year-old male patient who was admitted with altered mental status, symptomatic bradycardia, uremia, acute metabolic encephalopathy, possible breakthrough seizures and urinary tract infection. The patient was treated with IV fluid, was started on dopamine drip for hypotension and bradycardia with the plan is to if the patient continues to be in bradycardia he might require permanent pacemaker. He was also treated with vancomycin, piperacillin/tazobactam and we switched him to Keppra 500 mg IV. We have consulted the urology physician as well as the laminating machine operator. We will keep him n.p.o. as long as he is very lethargic and once he is able to swallow. Once he is more awake, we will consult the speech therapy to evaluate to do a bedside evaluation. TALISHA DR: Tyler TID: [id number]
[2021-07-18] MEDS ORDERED: levETIRAcetam 500 MG TABLET PO SCH (21:00)
--- NOTE | 2021-07-18 21:30 | NUR ---
Dr. Ballard paged and alerted of patient NPO status as well as nausea and vomiting. Orders to switch PO Keppra to IV given and initiated.
[2021-07-19] VITALS (15 sets, daily range): BP systolic 103–154; BP diastolic 44–86
[2021-07-19] MEDS: INSULIN LISPRO 300 UNITS/3 ML VIAL. SQ SCH ×4 (01:39→20:43)
[2021-07-19] MEDS: IV RINGERS,LACTATED 1000ML 1,000 ML IV SCH ×2 (01:41→14:40)
--- NOTE | 2021-07-19 03:07 | PN ---
DATE: 07/18/2021 SUBJECTIVE: The patient was admitted yesterday with altered mental status and possible breakthrough seizures. He was also bradycardic and hypotensive. He was given IV fluid and started on IV dopamine. His beta blockers were put on hold and he was actually dialyzed yesterday as he missed his dialysis on Monday. When I saw him this morning, he was resting slightly propped up in bed, more awake, alert, but nauseous and has vomited multiple times. He also complained of abdominal pain and therefore he was kept n.p.o. PHYSICAL EXAMINATION: GENERAL: When I examined him, he was pale, cachectic, but no jaundiced, cyanosed. No thyromegaly. No jugular venous distention. No limb edema. VITAL SIGNS: Her heart rate was 72, blood pressure was 118/60, temperature was 98.4, respiratory rate 20, and oxygen saturation was 100% on 2 liters of oxygen. HEAD, EYES, EARS, NOSE, AND THROAT: Normocephalic, atraumatic. NECK: Supple. HEART: Normal first and second heart sounds. No gallop, rub or murmur. CHEST: Shows central trachea, equal bilateral chest expansion, air entry, vesicular breath sounds. No crepitation or rhonchi. ABDOMEN: Scaphoid, soft, nontender. NEUROLOGIC: He was sleepy, but arousable. All his cranial nerves intact. He moves upper extremities without difficulty. He has left below-knee amputation. His intake and output are incompletely recorded. LABORATORY DATA: This morning showed his white cell count to be up to 20,000, hemoglobin 12.7, hematocrit 42, MCV 86 and platelet count 193,000. His chemistry this morning showed a serum sodium 141, potassium 3.9, chloride 95, bicarbonate 20, anion gap of 26, BUN 47, creatinine 6.3. Estimated GFR was 9.3, glucose 217, calcium was 9.5. Total bilirubin, AST, ALT normal. Alkaline phosphatase was elevated and his LDH was 171. Total protein 8.7, albumin 3 and lipase was 18. His procalcitonin was 0.28. I did order a CT scan of the abdomen and pelvis diffuse abdominal pain, the result of which is still pending at the time of this dictation. The CT scan of the abdomen showed that his stomach is markedly distended. He has also large amount of stool in the rectum, although this is my own interpretation. PLAN: My plan is to keep him n.p.o. and continue with IV antibiotic in the form of Zosyn and vancomycin as per pharmacy recommendation. He was dialyzed yesterday, probably start him on D10W and start on a small dose of insulin sliding scale. CHERYL/DEBRA/VANESSA DR: Tyler TID: [id number]
[2021-07-19] MEDS: PIPERACILLIN/TAZOBACTAM 2.25 GM in IV NORMAL SALINE 50ML 50 ML IV SCH ×3 (05:31→21:55)
[2021-07-19] MEDS ORDERED: VANCOMYCIN RANDOM LEVEL. MC ONE (06:00)
[2021-07-19 06:08] LABS: HEMATOCRIT 36.2 % (39.0-53.0); HEMOGLOBIN 11.1 g/dL (13.0-17.5); RED BLOOD COUNT 4.19 x10^6/uL (4.30-5.70); RED CELL DISTRIBUTION WIDTH 20.7 % (11.5-14.5); WHITE BLOOD COUNT 16.8 x10^3/uL (4.0-11.0)
[2021-07-19 06:27] LABS: ALBUMIN 2.9 g/dL (3.4-5.0); ALBUMIN/GLOBULIN RATIO 0.5 (1.0-1.7); CALCIUM 9.5 mg/dL (8.5-10.1); CREATININE 7.7 mg/dL (0.7-1.3); GFR 7.4; POTASSIUM 4.5 mmol/L (3.5-5.1); TOTAL BILIRUBIN 0.8 mg/dL (0.2-1.0); TOTAL PROTEIN 8.4 g/dL (6.4-8.2)
[2021-07-19] MEDS: VANCOMYCIN PER PHARMACY MC PRN ×2 (06:50→07:01)
--- NOTE | 2021-07-19 07:02 | NUR ---
Pharmacy Vancomycin Dosing Note S:Consulted to monitor and dose vancomycin started 07/17/21. O:FER CHAUDHARY is a 55 year old M with Empiric UTI . Height: 5 feet, 9 inches Weight: 66.8 kg [place] Body Weight: 70.70 Adjusted Body Weight: 69.14 Dosing Weight: Actual Other Antibiotics: ZOSYN/LEVAQUIN LABS: Last BUN: 68 Last Creatinine: 7.7 Creatinine Clearance: ESRD HD MWF mL/min Last WBC: 16.8 Last Procalcitonin: Tmax (past 24 hours): 99.5 Microbiology: 07/19 NGTD I/O: Drug Levels: Last Random level: 36.5 on 07/19/21 at 0555 Last dose given 07/17/21 at 1500 Vancomycin Dosing: Loading Dose: 1500 mg x1 Dosing Weight: Actual Target Trough: 10-20 A: Based on: supratherapeutic random level, P: 1. Hold further Vancomycin dosing 2. Follow up Random level on 07/21/21 at 0600 3. Pharmacy will continue to monitor, follow and adjust therapy as needed. GONZALES JO RPH, 07/19/21 0702
[2021-07-19] MEDS ORDERED: DIALYSIS PATIENT. MC PRN (08:15)
[2021-07-19] MEDS ORDERED: IV NORMAL SALINE 1000ML BAG 1,000 ML IV PRN ×2 (08:15)
--- NOTE | 2021-07-19 09:09 | PDOC ---
PROGRESS NOTES Date of Service DATE: 07/19/21 TIME: 09:06 Assessment Problems Medical Problems: (1) Acute cystitis Status: Acute (2) Acute metabolic encephalopathy Status: Acute (3) Breakthrough seizure Status: Acute (4) Hypoglycemia unawareness due to type 2 diabetes mellitus Status: Acute (5) Sick sinus syndrome Status: Acute (6) Symptomatic bradycardia Status: Acute (7) Uremia Status: Acute (8) Volume overload Status: Acute Metabolic encephalopathy, plenty of metabolic issues to explain his altered mental status, I do not think he had recurrent seizures. 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 History of psychogenic nonepileptic seizures, still taking levetiracetam. I have been hesitant to stop this as we never prove that he had psychogenic seizures, just had a negative work-up for organic epilepsy Anemia, end-stage renal disease on dialysis, hypoglycemia, UTI, hypotension, T ype 1 diabetes with neuropathy, metabolic acidosis Also has history of atrial fibrillation, coronary artery disease, hypertension, peripheral artery disease Plan Continue to treat medical issues I change the levetiracetam dose, was originally ordered every 48 hours, patient is on dialysis and stable on his current dose. No additional neurological investigations required Neurology will follow at intervals Subjective Denies pain Objective Vital Signs Date Time Temp Pulse Resp B/P (MAP) Pulse Ox O2 Delivery O2 Flow Rate FiO2 07/19/21 06:00 82 15 104/50 94 Room Air 07/19/21 05:00 99.2 99.2 07/18/21 18:00 2.0 Intake and Output 07/19/21 07:00 Intake Total 1432 ml Output Total 225 ml Balance 1207 ml Intake Oral 30 ml IV Total 992 ml Blood Product IV Normal Saline Flush 410 ml Output Urine Total 25 ml Emesis 200 ml PHYSICAL EXAM Alert. Oriented to place and person, not date. PERRL. EOMI. CN: no focal findings. Muscle tone: normal. Muscle strength: 3-4/5 DTR: 0+ Plantar reflex: Flexor Gait: not examined in bed. Sensory exam: stocking loss. No cerebellar signs elicited. Review of Relevant I have reviewed the following items yifan (where applicable) has been applied. Labs Laboratory Tests Test 07/17/21 13:20 07/17/21 14:20 07/17/21 15:45 07/17/21 16:00 White Blood Count 7.9 x10^3/uL (4.0-11.0) Red Blood Count 4.21 x10^6/uL (4.30-5.70) Hemoglobin 11.2 g/dL (13.0-17.5) Hematocrit 35.4 % (39.0-53.0) Mean Corpuscular Volume 84 fL (79-100) Mean Corpuscular Hemoglobin 27 pg (25-35) Mean Corpuscular Hemoglobin Concent 32 g/dL (31-37) Red Cell Distribution Width 20.4 % (11.5-14.5) Platelet Count 167 x10^3/uL (140-400) Neutrophils (%) (Auto) 51 % (31-73) Lymphocytes (%) (Auto) 27 % (24-48) Monocytes (%) (Auto) 8 % (0-9) Eosinophils (%) (Auto) 12 % (0-3) Basophils (%) (Auto) 2 % (0-3) Neutrophils # (Auto) 4.0 x10^3/uL (1.8-7.7) Lymphocytes # (Auto) 2.2 x10^3/uL (1.0-4.8) Monocytes # (Auto) 0.7 x10^3/uL (0.0-1.1) Eosinophils # (Auto) 0.9 x10^3/uL (0.0-0.7) Basophils # (Auto) 0.1 x10^3/uL (0.0-0.2) Platelet Estimate Adequate (ADEQUATE) Poikilocytosis Slight Anisocytosis Mod Prothrombin Time 14.9 SEC (11.7-14.0) Prothromb Time International Ratio 1.2 (0.8-1.1) Activated Partial Thromboplast Time 34 SEC (24-38) Sodium Level 143 mmol/L (136-145) Potassium Level 4.4 mmol/L (3.5-5.1) Chloride Level 101 mmol/L (98-107) Carbon Dioxide Level 22 mmol/L (21-32) Anion Gap 20 (6-14) Blood Urea Nitrogen 67 mg/dL (8-26) Creatinine 8.6 mg/dL (0.7-1.3) Estimated GFR (Cockcroft-Gault) 6.5 BUN/Creatinine Ratio 8 (6-20) Glucose Level 61 mg/dL (70-99) Lactic Acid Level 1.9 mmol/L (0.4-2.0) Calcium Level 9.5 mg/dL (8.5-10.1) Magnesium Level 1.9 mg/dL (1.8-2.4) Total Bilirubin 0.6 mg/dL (0.2-1.0) Aspartate Amino Transf (AST/SGOT) 41 U/L (15-37) Alanine Aminotransferase (ALT/SGPT) 19 U/L (16-63) Alkaline Phosphatase 166 U/L (46-116) Troponin I High Sensitivity 53 ng/L (4-75) Total Protein 7.8 g/dL (6.4-8.2) Albumin 2.9 g/dL (3.4-5.0) Albumin/Globulin Ratio 0.6 (1.0-1.7) Procalcitonin 0.28 ng/mL (0.00-0.10) Salicylates Level 2.0 mg/dL (2.8-20.0) Salicylate Last Dose Date Unknown Salicylate Last Dose Time Unknown Acetaminophen Level < 2 mcg/ml (10-30) Acetaminophen Last Dose Date Unknown Acetaminophen Last Dose Time Unknown Ethyl Alcohol Level < 10 mg/dL (0-10) O2 Saturation 96 % (92-99) Arterial Blood pH 7.31 (7.35-7.45) Arterial Blood pCO2 at Patient Temp 43 mmHg (35-46) Arterial Blood pO2 at Patient Temp 102 mmHg (75-108) Arterial Blood HCO3 21 mmol/L (21-28) Arterial Blood Base Excess -5 mmol/L (-3-3) FiO2 28%/ 2l nc Glucose (Fingerstick) 45 mg/dL (70-99) Urine Collection Type U cath Urine Color Yellow Urine Clarity Turbid Urine pH 6.5 (<5.0-8.0) Urine Specific [place] 1.025 (1.000-1.030) Urine Protein >=300 mg/dL (NEG-TRACE) Urine Glucose (UA) Negative mg/dL (NEG) Urine Ketones (Stick) Negative mg/dL (NEG) Urine Blood Large (NEG) Urine Nitrite Negative (NEG) Urine Bilirubin Small (NEG) Urine Urobilinogen Dipstick 0.2 mg/dL (0.2 mg/dL) Urine Leukocyte Esterase Large (NEG) Urine RBC /HPF (0-2) Urine WBC Tntc /HPF (0-4) Urine Bacteria Few /HPF (0-FEW) Urine Opiates Screen Neg (NEG) Urine Methadone Screen Neg (NEG) Urine Barbiturates Neg (NEG) Urine Phencyclidine Screen Neg (NEG) Urine Amphetamine/Methamphetamine Neg (NEG) Urine Benzodiazepines Screen Neg (NEG) Urine Cocaine Screen Neg (NEG) Urine Cannabinoids Screen Neg (NEG) Urine Ethyl Alcohol Neg (NEG) Test 07/17/21 16:32 07/17/21 16:33 07/18/21 00:10 07/18/21 05:47 Glucose (Fingerstick) 102 mg/dL (70-99) 121 mg/dL (70-99) 182 mg/dL (70-99) Coronavirus (COVID-19)(PCR) Positive (NOT DETECTD) SARS-CoV-2 Antigen (Rapid) Negative (NEGATIVE) Test 07/18/21 09:45 07/18/21 10:03 07/18/21 13:51 07/18/21 18:01 White Blood Count 20.1 x10^3/uL (4.0-11.0) Red Blood Count 4.87 x10^6/uL (4.30-5.70) Hemoglobin 12.7 g/dL (13.0-17.5) Hematocrit 41.8 % (39.0-53.0) Mean Corpuscular Volume 86 fL (79-100) Mean Corpuscular Hemoglobin 26 pg (25-35) Mean Corpuscular Hemoglobin Concent 30 g/dL (31-37) Red Cell Distribution Width 20.4 % (11.5-14.5) Platelet Count 193 x10^3/uL (140-400) Neutrophils (%) (Auto) 91 % (31-73) Lymphocytes (%) (Auto) 4 % (24-48) Monocytes (%) (Auto) 4 % (0-9) Eosinophils (%) (Auto) 0 % (0-3) Basophils (%) (Auto) 1 % (0-3) Neutrophils # (Auto) 18.3 x10^3/uL (1.8-7.7) Lymphocytes # (Auto) 0.8 x10^3/uL (1.0-4.8) Monocytes # (Auto) 0.8 x10^3/uL (0.0-1.1) Eosinophils # (Auto) 0.0 x10^3/uL (0.0-0.7) Basophils # (Auto) 0.1 x10^3/uL (0.0-0.2) Segmented Neutrophils % 76 % (35-66) Band Neutrophils % 18 % (0-9) Lymphocytes % 3 % (24-48) Monocytes % 3 % (0-10) Platelet Estimate Adequate (ADEQUATE) Anisocytosis Slight Sodium Level 141 mmol/L (136-145) Potassium Level 3.9 mmol/L (3.5-5.1) Chloride Level 95 mmol/L (98-107) Carbon Dioxide Level 20 mmol/L (21-32) Anion Gap 26 (6-14) Blood Urea Nitrogen 47 mg/dL (8-26) Creatinine 6.3 mg/dL (0.7-1.3) Estimated GFR (Cockcroft-Gault) 9.3 BUN/Creatinine Ratio 7 (6-20) Glucose Level 217 mg/dL (70-99) Calcium Level 9.5 mg/dL (8.5-10.1) Total Bilirubin 0.9 mg/dL (0.2-1.0) Aspartate Amino Transf (AST/SGOT) 29 U/L (15-37) Alanine Aminotransferase (ALT/SGPT) 19 U/L (16-63) Alkaline Phosphatase 185 U/L (46-116) Lactate Dehydrogenase 171 U/L (85-227) Total Protein 8.7 g/dL (6.4-8.2) Albumin 3.0 g/dL (3.4-5.0) Albumin/Globulin Ratio 0.5 (1.0-1.7) Lipase 18 U/L (73-393) Glucose (Fingerstick) 223 mg/dL (70-99) 289 mg/dL (70-99) 327 mg/dL (70-99) Test 07/19/21 01:35 07/19/21 05:55 07/19/21 08:36 Glucose (Fingerstick) 262 mg/dL (70-99) 243 mg/dL (70-99) White Blood Count 16.8 x10^3/uL (4.0-11.0) Red Blood Count 4.19 x10^6/uL (4.30-5.70) Hemoglobin 11.1 g/dL (13.0-17.5) Hematocrit 36.2 % (39.0-53.0) Mean Corpuscular Volume 86 fL (79-100) Mean Corpuscular Hemoglobin 26 pg (25-35) Mean Corpuscular Hemoglobin Concent 31 g/dL (31-37) Red Cell Distribution Width 20.7 % (11.5-14.5) Platelet Count 198 x10^3/uL (140-400) Sodium Level 140 mmol/L (136-145) Potassium Level 4.5 mmol/L (3.5-5.1) Chloride Level 99 mmol/L (98-107) Carbon Dioxide Level 22 mmol/L (21-32) Anion Gap 19 (6-14) Blood Urea Nitrogen 68 mg/dL (8-26) Creatinine 7.7 mg/dL (0.7-1.3) Estimated GFR (Cockcroft-Gault) 7.4 BUN/Creatinine Ratio 9 (6-20) Glucose Level 244 mg/dL (70-99) Calcium Level 9.5 mg/dL (8.5-10.1) Total Bilirubin 0.8 mg/dL (0.2-1.0) Aspartate Amino Transf (AST/SGOT) 18 U/L (15-37) Alanine Aminotransferase (ALT/SGPT) 15 U/L (16-63) Alkaline Phosphatase 157 U/L (46-116) Total Protein 8.4 g/dL (6.4-8.2) Albumin 2.9 g/dL (3.4-5.0) Albumin/Globulin Ratio 0.5 (1.0-1.7) Random Vancomycin Level 36.5 mcg/mL Laboratory Tests Test 07/18/21 09:45 07/18/21 10:03 07/18/21 13:51 07/18/21 18:01 White Blood Count 20.1 x10^3/uL (4.0-11.0) Red Blood Count 4.87 x10^6/uL (4.30-5.70) Hemoglobin 12.7 g/dL (13.0-17.5) Hematocrit 41.8 % (39.0-53.0) Mean Corpuscular Volume 86 fL (79-100) Mean Corpuscular Hemoglobin 26 pg (25-35) Mean Corpuscular Hemoglobin Concent 30 g/dL (31-37) Red Cell Distribution Width 20.4 % (11.5-14.5) Platelet Count 193 x10^3/uL (140-400) Neutrophils (%) (Auto) 91 % (31-73) Lymphocytes (%) (Auto) 4 % (24-48) Monocytes (%) (Auto) 4 % (0-9) Eosinophils (%) (Auto) 0 % (0-3) Basophils (%) (Auto) 1 % (0-3) Neutrophils # (Auto) 18.3 x10^3/uL (1.8-7.7) Lymphocytes # (Auto) 0.8 x10^3/uL (1.0-4.8) Monocytes # (Auto) 0.8 x10^3/uL (0.0-1.1) Eosinophils # (Auto) 0.0 x10^3/uL (0.0-0.7) Basophils # (Auto) 0.1 x10^3/uL (0.0-0.2) Segmented Neutrophils % 76 % (35-66) Band Neutrophils % 18 % (0-9) Lymphocytes % 3 % (24-48) Monocytes % 3 % (0-10) Platelet Estimate Adequate (ADEQUATE) Anisocytosis Slight Sodium Level 141 mmol/L (136-145) Potassium Level 3.9 mmol/L (3.5-5.1) Chloride Level 95 mmol/L (98-107) Carbon Dioxide Level 20 mmol/L (21-32) Anion Gap 26 (6-14) Blood Urea Nitrogen 47 mg/dL (8-26) Creatinine 6.3 mg/dL (0.7-1.3) Estimated GFR (Cockcroft-Gault) 9.3 BUN/Creatinine Ratio 7 (6-20) Glucose Level 217 mg/dL (70-99) Calcium Level 9.5 mg/dL (8.5-10.1) Total Bilirubin 0.9 mg/dL (0.2-1.0) Aspartate Amino Transf (AST/SGOT) 29 U/L (15-37) Alanine Aminotransferase (ALT/SGPT) 19 U/L (16-63) Alkaline Phosphatase 185 U/L (46-116) Lactate Dehydrogenase 171 U/L (85-227) Total Protein 8.7 g/dL (6.4-8.2) Albumin 3.0 g/dL (3.4-5.0) Albumin/Globulin Ratio 0.5 (1.0-1.7) Lipase 18 U/L (73-393) Glucose (Fingerstick) 223 mg/dL (70-99) 289 mg/dL (70-99) 327 mg/dL (70-99) Test 07/19/21 01:35 07/19/21 05:55 07/19/21 08:36 Glucose (Fingerstick) 262 mg/dL (70-99) 243 mg/dL (70-99) White Blood Count 16.8 x10^3/uL (4.0-11.0) Red Blood Count 4.19 x10^6/uL (4.30-5.70) Hemoglobin 11.1 g/dL (13.0-17.5) Hematocrit 36.2 % (39.0-53.0) Mean Corpuscular Volume 86 fL (79-100) Mean Corpuscular Hemoglobin 26 pg (25-35) Mean Corpuscular Hemoglobin Concent 31 g/dL (31-37) Red Cell Distribution Width 20.7 % (11.5-14.5) Platelet Count 198 x10^3/uL (140-400) Sodium Level 140 mmol/L (136-145) Potassium Level 4.5 mmol/L (3.5-5.1) Chloride Level 99 mmol/L (98-107) Carbon Dioxide Level 22 mmol/L (21-32) Anion Gap 19 (6-14) Blood Urea Nitrogen 68 mg/dL (8-26) Creatinine 7.7 mg/dL (0.7-1.3) Estimated GFR (Cockcroft-Gault) 7.4 BUN/Creatinine Ratio 9 (6-20) Glucose Level 244 mg/dL (70-99) Calcium Level 9.5 mg/dL (8.5-10.1) Total Bilirubin 0.8 mg/dL (0.2-1.0) Aspartate Amino Transf (AST/SGOT) 18 U/L (15-37) Alanine Aminotransferase (ALT/SGPT) 15 U/L (16-63) Alkaline Phosphatase 157 U/L (46-116) Total Protein 8.4 g/dL (6.4-8.2) Albumin 2.9 g/dL (3.4-5.0) Albumin/Globulin Ratio 0.5 (1.0-1.7) Random Vancomycin Level 36.5 mcg/mL Microbiology 07/17/21 Blood Culture - Preliminary, Resulted NO GROWTH AFTER 1 DAY Medications Current Medications Atropine Sulfate (ATROPINE 1mg SYRINGE) 1 mg STK-MED ONCE .ROUTE ; Start 07/17/21 at 13:30; Stop 07/17/21 at 13:30; Status DC Sodium Chloride 250 ml @ 500 mls/hr 1X ONCE IV Last administered on 07/17/21at 13:48; Start 07/17/21 at 13:30; Stop 07/17/21 at 13:59; Status DC Piperacillin Sod/ Tazobactam Sod 2.25 gm/Sodium Chloride 50 ml @ 100 mls/hr 1X ONCE IV Last administered on 07/17/21at 14:32; Start 07/17/21 at 13:30; Stop 07/17/21 at 13:59; Status DC Vancomycin HCl (Vanco Per Pharmacy) 1 each PRN DAILY PRN MC SEE COMMENTS Last administered on 07/19/21at 07:01; Start 07/17/21 at 13:30 Levetiracetam 100 ml @ 400 mls/hr Q12HR IV Last administered on 07/17/21at 23:03; Start 07/17/21 at 21:00; Stop 07/18/21 at 09:47; Status DC Atropine Sulfate (ATROPINE 0.5mg SYRINGE) 1 mg 1X ONCE IV Last administered on 07/17/21at 13:32; Start 07/17/21 at 13:30; Stop 07/17/21 at 13:42; Status DC Calcium Gluconate (Calcium Gluconate) 1,000 mg 1X ONCE IVP Last administered on 07/17/21at 13:25; Start 07/17/21 at 13:30; Stop 07/17/21 at 13:42; Status DC Epinephrine HCl 5 mg/Sodium Chloride 255 ml @ 21.114 mls/ hr CONT PRN IV SEE I/O RECORD Last administered on 07/17/21at 14:17; Start 07/17/21 at 13:45 Vancomycin HCl 1.75 gm/Sodium Chloride 500 ml @ 250 mls/hr 1X ONCE IV Last administered on 07/17/21at 15:00; Start 07/17/21 at 15:00; Stop 07/17/21 at 16:59; Status DC Dopamine HCl/ Dextrose 250 ml @ 12.994 mls/ hr 1X ONCE IV Last administered on 07/17/21at 14:56; Start 07/17/21 at 14:15; Stop 07/18/21 at 09:29; Status DC Dextrose (Dextrose 50%-Water Syringe) 25 gm 1X ONCE IV Last administered on 07/17/21at 15:56; Start 07/17/21 at 16:15; Stop 07/17/21 at 16:16; Status DC Dextrose 1,000 ml @ 125 mls/hr 1X ONCE IV ; Start 07/17/21 at 16:15; Stop 07/18/21 at 00:14; Status DC Ondansetron HCl (Zofran) 4 mg PRN Q8HRS PRN IVP NAUSEA/VOMITING Last administered on 07/18/21at 07:41; Start 07/17/21 at 16:30; Stop 07/18/21 at 13:18; Status DC Sodium Chloride 1,000 ml @ 1,000 mls/hr Q1H PRN IV hypotension; Start 07/17/21 at 18:00; Stop 07/17/21 at 23:59; Status DC Sodium Chloride 1,000 ml @ 400 mls/hr Q2H30M PRN IV PATENCY; Start 07/17/21 at 18:00; Stop 07/18/21 at 05:59; Status DC Info (PHARMACY MONITORING -- do not chart) 1 each PRN DAILY PRN MC SEE COMMENTS; Start 07/17/21 at 18:00 Piperacillin Sod/ Tazobactam Sod (Zosyn Per Pharmacy) 1 each PRN DAILY PRN MC SEE COMMENTS; Start 07/18/21 at 09:30 Vancomycin HCl (Vanco Per Pharmacy) 1 each PRN DAILY PRN MC SEE COMMENTS; Start 07/18/21 at 09:30; Status UNV Levetiracetam 100 ml @ 400 mls/hr Q48H IV ; Start 07/19/21 at 21:00; Stop 07/18/21 at 14:55; Status DC Piperacillin Sod/ Tazobactam Sod 2.25 gm/Sodium Chloride 50 ml @ 100 mls/hr Q8HRS IV Last administered on 07/19/21at 05:31; Start 07/18/21 at 14:00 Ringer's Solution 1,000 ml @ 75 mls/hr [id number] IV Last administered on 07/19/21at 01:41; Start 07/18/21 at 12:00 Ondansetron HCl (Zofran) 4 mg PRN Q4HRS PRN IVP NAUSEA/VOMITING Last administered on 07/18/21at 13:27; Start 07/18/21 at 13:15; Stop 07/19/21 at 13:14 Insulin Human Lispro (HumaLOG) 0-5 UNITS Q6H SQ Last administered on 07/19/21at 01:39; Start 07/18/21 at 13:30 Dextrose (Dextrose 50%-Water Syringe) 12.5 gm PRN Q15MIN PRN IV SEE COMMENTS; Start 07/18/21 at 13:30 Dextrose (Iv Dextrose 5%) 250 ml PRN Q15MIN PRN IV SEE COMMENTS; Start 07/18/21 at 13:30 Vancomycin HCl (Vancomycin Random Level) 1 each 1X ONCE MC Last administered on 07/19/21at 06:00; Start 07/19/21 at 06:00; Stop 07/19/21 at 06:01; Status DC Levetiracetam (Keppra) 500 mg BID PO ; Start 07/18/21 at 21:00; Stop 07/18/21 at 21:45; Status DC Levetiracetam 100 ml @ 400 mls/hr Q12HR IV Last administered on 07/19/21at 08:40; Start 07/18/21 at 22:00 Vancomycin HCl (Vancomycin Random Level) 1 each 1X ONCE MC ; Start 07/21/21 at 06:00; Stop 07/21/21 at 06:01 Sodium Chloride 1,000 ml @ 1,000 mls/hr Q1H PRN IV hypotension; Start 07/19/21 at 08:15; Stop 07/19/21 at 14:14 Sodium Chloride 1,000 ml @ 400 mls/hr Q2H30M PRN IV PATENCY; Start 07/19/21 at 08:15; Stop 07/19/21 at 20:14 Info (PHARMACY MONITORING -- do not chart) 1 each PRN DAILY PRN MC SEE COMMENTS; Start 07/19/21 at 08:15 Active Scripts Active Metoprolol Succinate 50 Mg Tab.er.24h 50 Mg PO DAILY 30 Days Levetiracetam 500 Mg Tablet 500 Mg PO BID 30 Days Reported Seroquel (Quetiapine Fumarate) 25 Mg Tablet 1 Tab PO QHS Mupirocin Cream (Mupirocin) 15 Gm Cream..g. 1 Ruth TP BID 10 Days Acidophilus (Lactobacillus Acidophilus) 100 Mg Capsule 1 Cap PO BID 30 Days Pantoprazole Sodium (Pantoprazole Sodium) 40 Mg Tablet.dr 40 Mg PO DAILYAC Trazodone Hcl 50 Mg Tablet 1 Tab PO QHS Xultophy 100 Unit-3.6 mg/ml (Insulin Degludec/Liraglutide) 3 Ml Insuln.pen 24 Ml SQ HS Vitamin D (Cholecalciferol (Vitamin D3)) 1,000 Unit Capsule 1 Cap PO DAILY Atorvastatin Calcium 10 Mg Tablet 10 Mg PO DAILY Sildenafil (Sildenafil Citrate) 20 Mg Tablet 20 Mg PO TID Zetia (Ezetimibe) 10 Mg Tablet 10 Mg PO DAILY Topiramate 100 Mg Tablet 100 Mg PO BID Promethazine Hcl 25 Mg Tablet 25 Mg PO Q6H PRN B-12 (Cyanocobalamin (Vitamin B-12)) 1,000 Mcg Tablet 1,000 Mcg PO DAILY Vascepa (Icosapent Ethyl) 1 Gm Capsule 2 Cap PO BID Aspirin Ec (Aspirin) 81 Mg Tablet. 81 Mg PO DAILY Duloxetine Hcl 60 Mg Capsule.dr 60 Mg PO HS Lyrica (Pregabalin) 225 Mg Capsule 225 Mg PO BID Losartan-Hctz 100-25 Mg Tab (Losartan/Hydrochlorothiazide) 1 Each Tablet 25 Mg PO DAILY Mirtazapine 45 Mg Tablet 45 Mg PO HS Amlodipine Besylate 5 Mg Tablet 5 Mg PO DAILY Vitals/I & O Vital Sign - Last 24 Hours 07/18/21 07/18/21 07/18/21 07/18/21 10:00 11:00 12:00 12:00 Temp 98.8 98.8 Pulse 86 86 84 Resp 20 20 20 B/P (MAP) 81/41 186/84 125/67 Pulse Ox 100 100 100 O2 Delivery Nasal Cannula Nasal Cannula Nasal Cannula Nasal Cannula O2 Flow Rate 2.0 2.0 2.0 2.0 07/18/21 07/18/21 07/18/21 07/18/21 13:00 14:00 15:00 16:00 Pulse 100 102 80 Resp 20 20 20 B/P (MAP) 148/68 117/60 105/58 Pulse Ox 100 100 100 O2 Delivery Nasal Cannula Nasal Cannula Nasal Cannula Room Air O2 Flow Rate 2.0 2.0 2.0 2.0 07/18/21 07/18/21 07/18/21 07/18/21 16:00 17:00 18:00 19:00 Temp 99.0 99.0 Pulse 80 86 86 84 Resp 20 20 20 18 B/P (MAP) 134/68 133/68 125/67 134/68 Pulse Ox 100 100 100 O2 Delivery Nasal Cannula Nasal Cannula Nasal Cannula Room Air O2 Flow Rate 2.0 2.0 2.0 07/18/21 07/18/21 07/18/21 07/18/21 20:00 20:00 21:00 22:00 Temp 99.5 99.5 Pulse 84 84 84 Resp 15 16 34 B/P (MAP) 126/63 111/77 105/77 O2 Delivery Room Air Room Air Room Air Room Air 07/18/21 07/19/21 07/19/21 07/19/21 23:00 00:00 00:00 01:00 Temp 98.7 98.7 Pulse 85 86 Resp 20 14 B/P (MAP) 97/48 103/56 103/44 Pulse Ox 99 99 98 O2 Delivery Room Air Room Air Room Air Room Air 07/19/21 07/19/21 07/19/21 07/19/21 02:00 03:00 04:00 04:00 Pulse 85 84 83 Resp 14 17 8 B/P (MAP) 116/62 128/65 132/75 Pulse Ox 100 100 100 O2 Delivery Room Air Room Air Room Air Room Air 07/19/21 07/19/21 05:00 06:00 Temp 99.2 99.2 Pulse 82 82 Resp 15 15 B/P (MAP) 128/62 104/50 Pulse Ox 100 94 O2 Delivery Room Air Room Air Intake and Output 07/18/21 07/18/21 07/19/21 15:00 23:00 07:00 Intake Total 1302 ml 130 ml Output Total 200 ml 25 ml Balance 1102 ml 105 ml Justicifation of Admission Dx: Justifications for Admission: Justification of Admission Dx: N/A PAOLA DICK MD Jul 19, 2021 09:09
--- NOTE | 2021-07-19 09:53 | PN ---
DATE: 07/19/2021 SUBJECTIVE: The patient is resting, slightly propped up in bed, in no apparent distress. He is definitely more awake, alert, continued to complain of some mild abdominal discomfort. According to him, he has more episodes of nausea, vomiting, although the nursing staff did not report that. He did have a CT scan of the abdomen and pelvis yesterday as he has recurrent episodes of nausea, vomiting and aspiration pneumonia and did show distended stomach with gas and ingested material. No obstructing process is seen or gastric wall emphysema. There is also some luminal distention of the distal esophagus. Findings are nonspecific, but could be related to gastroparesis. If there is concern for mechanical gastric outlet obstruction, consider an endoscopy. He has mild constipation and small size of the kidneys are seen consistent with his end-stage renal disease. PHYSICAL EXAMINATION: GENERAL: When I saw him this morning, he was resting, slightly propped up in bed, in no apparent distress, somewhat pale, no jaundice, cyanosis or thyromegaly. No jugular venous distention. No lower limb edema. VITAL SIGNS: His heart rate was 82, blood pressure is 104/50, temperature was 99.2, respiratory rate was 15 and oxygen saturation was 94% on room air. HEAD, EYES, EARS, NOSE AND THROAT: Normocephalic, atraumatic. NECK: Supple. HEART: Showed normal first and second heart sounds. No gallop, rub or murmur. CHEST: Shows central trachea, equal bilateral chest expansion, air entry, vesicular breath sounds. No crepitation or rhonchi. ABDOMEN: Scaphoid, soft with mild diffuse tenderness. No guarding or rigidity. No organomegaly. All hernial orifice intact. Bowel sounds normal. NEUROLOGIC: He is definitely more awake, alert, responding appropriately. All his cranial nerves are intact. He moves extremities without difficulty. He has left below-knee amputation. He has multiple scabbed wounds on the right leg, has also onychomycosis toenails of right foot. His intake over the last 24 hours was 500, no output was recorded. LABORATORY DATA: As of this morning, his white cell count was 16.8, hemoglobin 11, hematocrit 36, MCV 86 and platelet count of 198,000. His chemistry is variable as he is hemodialysis dependent. His random vancomycin was high at 36.5. ASSESSMENT: 1. Altered mental status, likely due to hypoglycemia. 2. Recurrent bouts of nausea, vomiting and aspiration pneumonia with marked leukocytosis for which he is on IV Zosyn and vancomycin. 3. Seizure disorder for which he is on Keppra as he was n.p.o. yesterday. We switched him to be given IV. 4. The patient has a multitude of other medical problems including: A. End-stage renal disease, on hemodialysis Monday, Monday, Monday. B. Insulin-dependent type 1 diabetes mellitus. C. Atrial fibrillation, rate controlled, not anticoagulated. D. Coronary artery disease status post coronary artery bypass graft surgery. E. Hypertension. F. Cerebrovascular accident with left occipital infarct, basal ganglia infarct. G. Peripheral neuropathy. H. Seizure disorder. I. Peripheral vascular disease, status post left below-knee amputation. J. Anemia of chronic kidney disease. PLAN: I will repeat his KUB and if the stomach size decreased and the stomach emptied its content, we will start him on clear liquid and advance diet as tolerated. Continue meanwhile with IV antibiotic. Continue with Keppra. Continue with hemodialysis. He is scheduled to be dialyzed on Monday, Monday and Monday. We will consult the case management to arrange for placement in a fdc facility. DOMINIQUE DR: Tyler TID: [id number]
--- NOTE | 2021-07-19 09:58 | PDOC2 ---
GI CONSULT Date of Service: DATE: 07/19/21 TIME: 09:58 Reason For Consult: abdominal distention with gas HPI: HPI: 55 y/o male admitted over the weekend w/ AMS, missed HD. Not much meaningful information from him this morning - tells me he came to the hospital w/ concerns for his mother's health. D/w nurse and Dr. Valle. Had some vomiting and abnormal CT findings of "distended stomach with gas and ingested material" with concern for gastroparesis which is why we are asked to see. Pt thinks he had past EGD w/ ulcer, no previous colonoscopy. Chart notes cholecystectomy. 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 PMH: PMH: per chart: A Fib, CAD s/p CABG and stent, CHF, HTN, COPD, pneumonia, LOI, CVA, peripheral neuropathy, psychogenic nonepileptic seizures, depression, ESRD on HD, nephrolithiasis, DM cholecystectomy, BKA FH: Family History: No pertinent hx Social History: Smoke: No (per chart) ALCOHOL: none (per chart) ROS: difficult to obtain, currently denies pain Vitals: Vitals: Vital Signs Date Time Temp Pulse Resp B/P (MAP) Pulse Ox O2 Delivery O2 Flow Rate FiO2 07/19/21 06:00 82 15 104/50 94 Room Air 07/19/21 05:00 99.2 99.2 07/18/21 18:00 2.0 Labs: Labs: Laboratory Tests Test 07/18/21 10:03 07/18/21 13:51 07/18/21 18:01 07/19/21 01:35 Glucose (Fingerstick) 223 mg/dL (70-99) 289 mg/dL (70-99) 327 mg/dL (70-99) 262 mg/dL (70-99) Test 07/19/21 05:55 07/19/21 08:36 White Blood Count 16.8 x10^3/uL (4.0-11.0) Red Blood Count 4.19 x10^6/uL (4.30-5.70) Hemoglobin 11.1 g/dL (13.0-17.5) Hematocrit 36.2 % (39.0-53.0) Mean Corpuscular Volume 86 fL (79-100) Mean Corpuscular Hemoglobin 26 pg (25-35) Mean Corpuscular Hemoglobin Concent 31 g/dL (31-37) Red Cell Distribution Width 20.7 % (11.5-14.5) Platelet Count 198 x10^3/uL (140-400) Sodium Level 140 mmol/L (136-145) Potassium Level 4.5 mmol/L (3.5-5.1) Chloride Level 99 mmol/L (98-107) Carbon Dioxide Level 22 mmol/L (21-32) Anion Gap 19 (6-14) Blood Urea Nitrogen 68 mg/dL (8-26) Creatinine 7.7 mg/dL (0.7-1.3) Estimated GFR (Cockcroft-Gault) 7.4 BUN/Creatinine Ratio 9 (6-20) Glucose Level 244 mg/dL (70-99) Calcium Level 9.5 mg/dL (8.5-10.1) Total Bilirubin 0.8 mg/dL (0.2-1.0) Aspartate Amino Transf (AST/SGOT) 18 U/L (15-37) Alanine Aminotransferase (ALT/SGPT) 15 U/L (16-63) Alkaline Phosphatase 157 U/L (46-116) Total Protein 8.4 g/dL (6.4-8.2) Albumin 2.9 g/dL (3.4-5.0) Albumin/Globulin Ratio 0.5 (1.0-1.7) Random Vancomycin Level 36.5 mcg/mL Glucose (Fingerstick) 243 mg/dL (70-99) BLOOD CULTURE Preliminary NO GROWTH AFTER 1 DAY Allergies: Coded Allergies: No Known Drug Allergies (Unverified , 01/23/14) Medications: Current Medications Medications (Trade) Dose Ordered Sig/Babak Route PRN Reason Start Time Stop Time Status Last Admin Dose Admin Piperacillin Sod/ Tazobactam Sod 2.25 gm/Sodium Chloride 50 ml @ 100 mls/hr Q8HRS IV 07/18/21 14:00 07/19/21 05:31 Ringer's Solution 1,000 ml @ 75 mls/hr [id number] IV 07/18/21 12:00 07/19/21 01:41 Ondansetron HCl (Zofran) 4 mg PRN Q4HRS PRN IVP NAUSEA/VOMITING 07/18/21 13:15 07/19/21 13:14 07/18/21 13:27 Insulin Human Lispro (HumaLOG) 0-5 UNITS Q6H SQ 07/18/21 13:30 07/19/21 01:39 Vancomycin HCl (Vancomycin Random Level) 1 each 1X ONCE MC 07/19/21 06:00 07/19/21 06:01 DC 07/19/21 06:00 Levetiracetam 100 ml @ 400 mls/hr Q12HR IV 07/18/21 22:00 07/19/21 08:40 Imaging: Imaging: CXR 07/17 Impression: Similar findings from 05/26/2021 with enlargement of the cardiomediastinal silhouette and lung findings which could be related to interstitial/alveolar edema. No layering effusion Head CT 07/17 IMPRESSION: No evidence for acute intracranial abnormality. Chronic infarcts are again seen. Volume loss and microvascular disease. CT A/P 07/18 Impression: 1. Distended stomach with gas and ingested material. No obstructing process is seen or gastric wall emphysema. There is also some luminal distention of the distal esophagus. The findings are nonspecific but could be related to gastroparesis. If there is concern for mechanical gastric outlet obstruction consider endoscopy. 2. Lower lung groundglass and nodular airspace infiltrates concerning for an atypical pneumonia and/or aspiration. Consider follow-up in 3-6 months to confirm resolution of the nodules. 3. Volume overload state with small volume ascites and mesenteric/body wall edema. 4. Mild constipation. 5. Small size of the kidneys as can be seen with chronic kidney disease. No hydronephrosis. 6. [place] calcific coronary artery disease. Median sternotomy changes appearing relatively recent. 7. Chronic observations described in the body of the report. KUB 07/19 IMPRESSION: No obstructive bowel pattern. PE: GEN: NAD HEENT: Atraumatic, PERRL LUNGS: CTAB HEART: RRR ABD: NABS, S/ND/NT EXTREMITY: left BKA SKIN: No rashes, no jaundice NEURO/PSYCH: awake and alert, confused A/P: A/P: AMS, non-compliance COVID PCR positive - hospitalized in May for COVID A Fib, ESRD on HD, DM Vomiting - resolved? Abnormal CT - distended stomach, distal esophagus Leukocytosis - better Mild anemia - chronic ?h/o "ulcer" - untrustworthy historian ?constipation - suggested on CT CRC screen - none? S/p cholecystectomy -- Exam benign. Interval KUB noted. No vomiting since yesterday per staff. To have DIRECT SUPPORT STAFF eval - okay from GI standpoint - would try liquids if cleared by them. Add PPI - IV for now. Treat constipation as able. Check iron for completeness. Consider outpt scopes. ZARA BALBUENA Jul 19, 2021 09:58
--- NOTE | 2021-07-19 10:19 | RAD ---
AP view of the abdomen Clinical indications: Recurrent bouts of nausea and vomiting. Stomach distention. FINDINGS: No obstructive bowel pattern is evident. There is mild fecal retention within the transvers e colon. No dilatation of the colon is seen. No air-filled distention of the stomach is evident. IMPRESSION: No obstructive bowel pattern. Electronically signed by: Florentin Llanos MD (07/19/2021 10:16 AM) [id number]
--- NOTE | 2021-07-19 10:43 | PDOC ---
Renal-Progress Notes Subjective Notes Notes NO NEW COMPLAINTS, STILL HAS SOME CONFUSION History of Present Illness Hx of present illness STABLE Vitals Vitals Vital Signs Date Time Temp Pulse Resp B/P (MAP) Pulse Ox O2 Delivery O2 Flow Rate FiO2 07/19/21 08:00 Room Air 07/19/21 06:00 82 15 104/50 94 07/19/21 05:00 99.2 99.2 07/18/21 18:00 2.0 Weight Weight [ ] I.O. Intake and Output Intake and Output 07/19/21 07:00 Intake Total 1432 ml Output Total 225 ml Balance 1207 ml Intake Oral 30 ml IV Total 992 ml Blood Product IV Normal Saline Flush 410 ml Output Urine Total 25 ml Emesis 200 ml Labs Labs Laboratory Tests Test 07/18/21 13:51 07/18/21 18:01 07/19/21 01:35 07/19/21 05:55 Glucose (Fingerstick) 289 mg/dL (70-99) 327 mg/dL (70-99) 262 mg/dL (70-99) White Blood Count 16.8 x10^3/uL (4.0-11.0) Red Blood Count 4.19 x10^6/uL (4.30-5.70) Hemoglobin 11.1 g/dL (13.0-17.5) Hematocrit 36.2 % (39.0-53.0) Mean Corpuscular Volume 86 fL (79-100) Mean Corpuscular Hemoglobin 26 pg (25-35) Mean Corpuscular Hemoglobin Concent 31 g/dL (31-37) Red Cell Distribution Width 20.7 % (11.5-14.5) Platelet Count 198 x10^3/uL (140-400) Sodium Level 140 mmol/L (136-145) Potassium Level 4.5 mmol/L (3.5-5.1) Chloride Level 99 mmol/L (98-107) Carbon Dioxide Level 22 mmol/L (21-32) Anion Gap 19 (6-14) Blood Urea Nitrogen 68 mg/dL (8-26) Creatinine 7.7 mg/dL (0.7-1.3) Estimated GFR (Cockcroft-Gault) 7.4 BUN/Creatinine Ratio 9 (6-20) Glucose Level 244 mg/dL (70-99) Calcium Level 9.5 mg/dL (8.5-10.1) Total Bilirubin 0.8 mg/dL (0.2-1.0) Aspartate Amino Transf (AST/SGOT) 18 U/L (15-37) Alanine Aminotransferase (ALT/SGPT) 15 U/L (16-63) Alkaline Phosphatase 157 U/L (46-116) Total Protein 8.4 g/dL (6.4-8.2) Albumin 2.9 g/dL (3.4-5.0) Albumin/Globulin Ratio 0.5 (1.0-1.7) Random Vancomycin Level 36.5 mcg/mL Test 07/19/21 08:36 Glucose (Fingerstick) 243 mg/dL (70-99) Micro Micro Microbiology 07/17/21 Blood Culture - Preliminary, Resulted NO GROWTH AFTER 1 DAY Review of Systems Constitutional: yes: alert Ears/Nose/Throat: Yes: no symptom reported Eyes: Yes: no symptom reported Pulmonary: Yes no symptom reported Cardiovascular: Yes no symptom reported Gastrointestional: Yes: no symptom reported Genitourinary: Yes: no symptom reported Musculoskeletal: Yes: no symptom reported Skin: Yes no symptom reported Psychiatric/Neurological: Yes: no symptom reported Endocrine: Yes: no symptom reported Physical Exam General Appearance: no apparent distress Skin: warm Respiratory: decreased breath sounds Heart: S1S2 Abdomen: soft, bowel sounds present Genitourinary: bladder flat Extremities: pulses present Neurology: alert, confused Assessment Assessment IMP [id number] IJ TDC ANEMIA OF ESRD BRADYCARDIA HYPOTENSION FLUID OVERLOAD HYPOGLYCEMIA LEUCOCYTOSIS DM II UTI PLAN ANTIBIOTICS CARDIOLOGY EVAL VINNIE WHEN NEEDED HD TODAY UF TO TW WILL FOLLOW NUBIA PATTON MD Jul 19, 2021 10:43
[2021-07-19] MEDS ORDERED: BISACODYL 10 MG SUPP.RECT. PR PRN (11:45)
[2021-07-19] MEDS: HEPARIN for SUB-Q USE 5,000 UNIT/ML VIAL. SQ SCH ×2 (12:02→20:42)
[2021-07-19] MEDS: PANTOPRAZOLE IV PUSH 40 MG VIAL. IVP SCH (12:02)
--- NOTE | 2021-07-19 12:21 | PDOC ---
FELICITY CORLEY DIRECTOR [employer] SYSTEM 07/19/21 1221: CARDIO Progress Notes Date and Time Date of Service 07/19/21 Time of Evaluation 1220 Subjective Subjective: No Chest Pain, No shortness of breath, No Palpitations Vitals Vitals Vital Signs Date Time Temp Pulse Resp B/P (MAP) Pulse Ox O2 Delivery O2 Flow Rate FiO2 07/19/21 08:00 Room Air 07/19/21 06:00 82 15 104/50 94 07/19/21 05:00 99.2 99.2 07/18/21 18:00 2.0 Weight Weight [ ] Input and Output Intake and Output Intake and Output 07/19/21 07:00 Intake Total 1432 ml Output Total 225 ml Balance 1207 ml Intake Oral 30 ml IV Total 992 ml Blood Product IV Normal Saline Flush 410 ml Output Urine Total 25 ml Emesis 200 ml Laboratory Labs Laboratory Tests Test 07/18/21 13:51 07/18/21 18:01 07/19/21 01:35 07/19/21 05:55 Glucose (Fingerstick) 289 mg/dL (70-99) 327 mg/dL (70-99) 262 mg/dL (70-99) White Blood Count 16.8 x10^3/uL (4.0-11.0) Red Blood Count 4.19 x10^6/uL (4.30-5.70) Hemoglobin 11.1 g/dL (13.0-17.5) Hematocrit 36.2 % (39.0-53.0) Mean Corpuscular Volume 86 fL (79-100) Mean Corpuscular Hemoglobin 26 pg (25-35) Mean Corpuscular Hemoglobin Concent 31 g/dL (31-37) Red Cell Distribution Width 20.7 % (11.5-14.5) Platelet Count 198 x10^3/uL (140-400) Sodium Level 140 mmol/L (136-145) Potassium Level 4.5 mmol/L (3.5-5.1) Chloride Level 99 mmol/L (98-107) Carbon Dioxide Level 22 mmol/L (21-32) Anion Gap 19 (6-14) Blood Urea Nitrogen 68 mg/dL (8-26) Creatinine 7.7 mg/dL (0.7-1.3) Estimated GFR (Cockcroft-Gault) 7.4 BUN/Creatinine Ratio 9 (6-20) Glucose Level 244 mg/dL (70-99) Calcium Level 9.5 mg/dL (8.5-10.1) Total Bilirubin 0.8 mg/dL (0.2-1.0) Aspartate Amino Transf (AST/SGOT) 18 U/L (15-37) Alanine Aminotransferase (ALT/SGPT) 15 U/L (16-63) Alkaline Phosphatase 157 U/L (46-116) Total Protein 8.4 g/dL (6.4-8.2) Albumin 2.9 g/dL (3.4-5.0) Albumin/Globulin Ratio 0.5 (1.0-1.7) Random Vancomycin Level 36.5 mcg/mL Test 07/19/21 08:36 Glucose (Fingerstick) 243 mg/dL (70-99) Microbiology Micro Microbiology 07/17/21 Blood Culture - Preliminary, Resulted NO GROWTH AFTER 1 DAY Review of Systems Constitutional: yes: alert Ears/Nose/Throat: Yes: no symptom reported Eyes: Yes: no symptom reported Pulmonary: Yes no symptom reported Cardiovascular: Yes no symptom reported Gastrointestional: Yes: no symptom reported Genitourinary: Yes: no symptom reported Musculoskeletal: Yes: no symptom reported Skin: Yes no symptom reported Psychiatric/Neurological: Yes: no symptom reported Endocrine: Yes: no symptom reported Physical Exam HEENT: Neck Supple W Full Motion Chest: Symmetric LUNGS: Other (diminished bases) Heart: RRR Abdomen: Soft N/T Extremities: No Edema, Other (left BKA ) Neurology: alert, confused Assessment Assessment 1. PAF presenting with atrial flutter with slow VR. BB held. Improved, off dopamine infusion. No significant pauses noted on telemetry. Presently SR. No clear indication for permanent pacemaker implantation at this time 2. Acute metabolic encephalopathy 3. ESRD on HD 4. Seizure disorder: on Keppra. Neurology following 5. CAD: s/p CABG. clinically stable and chest pain-free. 6. HTN; controlled 7. DM2: Treat per IM 8. S/P LBKA 9. Ischemic cardiomyopathy, chronic systolic heart failure LV EF 30-35%, clinically well compensated 10. Mild to moderate , moderate to severe TR. Estimated PAP 60 mmHg on recent 2D echo. 11. PAD: Recent abdominal aortogram revealed no significant aortoiliac disease bilaterally and moderate diffuse 50 to 60% stenosis involving the SFA with one- vessel runoff bilaterally. 12. Acute cystitis: Per IM Recommendations Avoid AV alisa blocking agents Monitor tele Patient is a poor candidate for long-term anticoagulation secondary to anemia and subdural hematoma in the past. Continue aspirin for stroke prophylaxis. Continue current secondary prevention measures. Fluid offloading via HD. Justicifation of Admission Dx: Justifications for Admission: Justification of Admission Dx: N/A CARRIE MCCLAIN MD 07/19/21 1729: CARDIO Progress Notes Plan Plan The patient was seen and interviewed as well as examined at the bedside. The chart was reviewed. The case was discussed. Agree with the plan of care. FELICITY CORLEY APRN Jul 19, 2021 12:21 CARRIE MCCLAIN MD Jul 19, 2021 17:29
--- NOTE | 2021-07-19 16:12 | NUR ---
SS following for discharge planning. SS reviewed pt chart and discussed with pt RN. Pt is from home and is currently on room air. COVID19 recovered. Cardiology, GI, Nephrology, and Neurology consulted. ST ordered. Pt has outpatient dialysis at [facility], ; fax [phone], Monday, Monday, and Monday. Probable need for PT/OT when medically ready to participate. SS will continue to follow for discharge planning.
[2021-07-20] VITALS (7 sets, daily range): BP systolic 150–165; BP diastolic 67–80
[2021-07-20] MEDS: IV RINGERS,LACTATED 1000ML 1,000 ML IV SCH ×2 (00:13→17:20)
[2021-07-20] MEDS: INSULIN LISPRO 300 UNITS/3 ML VIAL. SQ SCH ×5 (01:38→20:57)
[2021-07-20] MEDS: PIPERACILLIN/TAZOBACTAM 2.25 GM in IV NORMAL SALINE 50ML 50 ML IV SCH ×3 (06:09→22:01)
--- NOTE | 2021-07-20 07:56 | NUR ---
At 0620 upon coming out of another Patient's room heard my name called. Turned and noticed Patient sitting on floor beside bed with seizure padded side rail in down position. Assisted Patient to bed with x 3 assistance with help from Robb BELTRAN and Shaila BELTRAN. Side rails up with seizure pads in place. Call light in reach, Patient instructed to call for assistance. No injury noted and Patient denied any c/o of pain. Vitals 98.9 , 154/67, 75, 18, 100 on RA. tube drawing supervisor Anna notified Nurse manager pulmonary Leticia notified. Dr. Valle notified, no orders received.
[2021-07-20] MEDS: PANTOPRAZOLE IV PUSH 40 MG VIAL. IVP SCH (09:10)
[2021-07-20] MEDS: HEPARIN for SUB-Q USE 5,000 UNIT/ML VIAL. SQ SCH ×2 (09:10→21:00)
--- NOTE | 2021-07-20 10:04 | PDOC ---
Date of Service: DATE: 07/20/21 TIME: 09:52 Subjective: Subjective: "I've been better." Tolerating breakfast, denies abd pain, hasn't stooled. Objective: Objective: No GI concerns per nurse. Vital Signs: Vital Signs Date Time Temp Pulse Resp B/P (MAP) Pulse Ox O2 Delivery O2 Flow Rate FiO2 07/20/21 06:25 98.9 75 18 154/67 100 Room Air 98.9 Labs: Laboratory Tests Test 07/19/21 12:46 07/19/21 20:10 07/20/21 01:36 07/20/21 08:39 Iron Level 21 ug/dL Total Iron Binding Capacity 146 ug/dL Iron Saturation 14 % Ammonia 14 mcmol/L Glucose (Fingerstick) 259 mg/dL 224 mg/dL 235 mg/dL CULTURE URINE Preliminary 10,000 CFU/ML STAPHYLOCOCCUS SIMULANSon 07/19/21 at 1253. 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 See full rpt in interventions. RECOMMENDATIONS: Initiate Dysphagia II w/honey thick liquids. Precautions posted. Diet orders entered. REMBERTO BELTRAN [facility]. PE: GEN: NAD LUNGS: CTAB HEART: RRR ABD: NABS, S/ND/NT NEURO/PSYCH: A & O 3 A/P: COVID PCR positive, encephalopathy, A Fib, ESRD on HD, DM Vomiting - resolved Abnormal CT w/ distended stomach, distal esophagus, constipation - f/u KUB unremarkable FABRICIO/ACD -- Tolerating diet. Change to PO PPI, add treatment for constipation. Justicifation of Admission Dx: Justifications for Admission: Justification of Admission Dx: N/A ZARA BALBUENA Jul 20, 2021 10:03
[2021-07-20] MEDS ORDERED: BISACODYL 5 MG TABLET.DR. PO PRN (10:15)
--- NOTE | 2021-07-20 10:42 | PDOC ---
Renal-Progress Notes Subjective Notes Notes LESS CONFUSED. EATING BETTER History of Present Illness Hx of present illness STILL VERY ILL WITH OVERALL PROGNOSIS GUARDED Vitals Vitals Vital Signs Date Time Temp Pulse Resp B/P (MAP) Pulse Ox O2 Delivery O2 Flow Rate FiO2 07/20/21 06:25 98.9 75 18 154/67 100 Room Air 98.9 Weight Weight [ ] I.O. Intake and Output Intake and Output 07/20/21 07:00 Intake Total 100 ml Output Total 0 ml Balance 100 ml Intake Oral 0 ml IV Total 100 ml Output Urine Total 0 ml Labs Labs Laboratory Tests Test 07/19/21 12:46 07/19/21 20:10 07/20/21 01:36 07/20/21 08:39 Iron Level 21 ug/dL (65-175) Total Iron Binding Capacity 146 ug/dL (250-450) Iron Saturation 14 % (15-34) Ammonia 14 mcmol/L (11-34) Glucose (Fingerstick) 259 mg/dL (70-99) 224 mg/dL (70-99) 235 mg/dL (70-99) Micro Micro Microbiology 07/18/21 Blood Culture - Preliminary, Resulted NO GROWTH AFTER 1 DAY 07/17/21 Urine Culture - Preliminary, Resulted Staphylococcus Simulans Staphylococcus Simulans#2 Review of Systems Constitutional: yes: alert Ears/Nose/Throat: Yes: no symptom reported Eyes: Yes: no symptom reported Pulmonary: Yes no symptom reported Cardiovascular: Yes no symptom reported Gastrointestional: Yes: no symptom reported Genitourinary: Yes: no symptom reported Musculoskeletal: Yes: no symptom reported Skin: Yes no symptom reported Psychiatric/Neurological: Yes: no symptom reported Endocrine: Yes: no symptom reported Physical Exam General Appearance: no apparent distress Skin: warm Respiratory: decreased breath sounds Heart: S1S2 Abdomen: soft, bowel sounds present Genitourinary: bladder flat Extremities: pulses present Neurology: alert, confused Assessment Assessment IMP [id number] IJ TDC ANEMIA OF ESRD BRADYCARDIA HYPOTENSION-RESOLVED FLUID OVERLOAD HYPOGLYCEMIA LEUCOCYTOSIS DM II UTI COVID 19 POS PLAN ANTIBIOTICS CARDIOLOGY EVAL VINNIE WHEN NEEDED HD TOMORROW WILL FOLLOW NUBIA PATTON MD Jul 20, 2021 10:42
--- NOTE | 2021-07-20 11:47 | NUR ---
SS following up with discharge planning. SS reviewed pt chart and discussed with pt RN. Pt is from home and is currently on room air. COVID19 recovered. Pt has outpatient dialysis at [facility], ; fax [phone], Monday, Monday, and Monday. Pt on IV Zosyn and IV Keppra. PO diet. PT/OT ordered. Pt and family requesting residential unit at this time and requested referrals to [facility], ; fax [phone], [facility], ; fax [phone], and [facility], ; fax [phone]. Currently awaiting therapy evaluations at this time. SS will continue to follow for discharge planning. Addendum: 07/20/21 at 1608 by SHAZIA PELLETIER SS PT/OT recommended residential unit. Referrals sent to [facility], [facility], and [facility].
--- NOTE | 2021-07-20 12:39 | PDOC ---
TEJAL GUO BROTH SETTER 07/20/21 1239: CARDIO Progress Notes Date and Time Date of Service 07/20/2021 Time of Evaluation 1220 Subjective Subjective: No Chest Pain, No shortness of breath, No Palpitations Vitals Vitals Vital Signs Date Time Temp Pulse Resp B/P (MAP) Pulse Ox O2 Delivery O2 Flow Rate FiO2 07/20/21 08:00 98.1 76 20 150/80 91 Room Air 98.1 Weight Weight [ ] Input and Output Intake and Output Intake and Output 07/20/21 07:00 Intake Total 100 ml Output Total 0 ml Balance 100 ml Intake Oral 0 ml IV Total 100 ml Output Urine Total 0 ml Laboratory Labs Laboratory Tests Test 07/19/21 12:46 07/19/21 20:10 07/20/21 01:36 07/20/21 08:39 Iron Level 21 ug/dL (65-175) Total Iron Binding Capacity 146 ug/dL (250-450) Iron Saturation 14 % (15-34) Ammonia 14 mcmol/L (11-34) Glucose (Fingerstick) 259 mg/dL (70-99) 224 mg/dL (70-99) 235 mg/dL (70-99) Microbiology Micro Microbiology 07/18/21 Blood Culture - Preliminary, Resulted NO GROWTH AFTER 1 DAY 07/17/21 Urine Culture - Final, Complete Staphylococcus Simulans Staphylococcus Simulans#2 Corynebacter Jeikeium (Grp Jk) Review of Systems Constitutional: yes: alert Ears/Nose/Throat: Yes: no symptom reported Eyes: Yes: no symptom reported Pulmonary: Yes no symptom reported Cardiovascular: Yes no symptom reported Gastrointestional: Yes: no symptom reported Genitourinary: Yes: no symptom reported Musculoskeletal: Yes: no symptom reported Skin: Yes no symptom reported Psychiatric/Neurological: Yes: no symptom reported Endocrine: Yes: no symptom reported Physical Exam HEENT: Neck Supple W Full Motion Chest: Symmetric LUNGS: Other (diminished bases) Heart: irregularly irregular (atrial flutter) Abdomen: Soft N/T Extremities: No Edema, Other (left BKA ) Neurology: alert, confused Assessment Assessment 1. PAF presenting with atrial flutter with slow VR. BB held. Improved, off dopamine infusion. No significant pauses noted on telemetry. No clear indication for permanent pacemaker implantation at this time. Appears to be in atrial flutter rate controlled 2. Acute metabolic encephalopathy 3. ESRD on HD 4. Seizure disorder: on Keppra. Neurology following 5. CAD: s/p CABG. clinically stable and chest pain-free. 6. HTN; controlled 7. DM2: Treat per IM 8. S/P LBKA 9. Ischemic cardiomyopathy, chronic systolic heart failure LV EF 30-35%, clinically well compensated 10. Mild to moderate , moderate to severe TR. Estimated PAP 60 mmHg on recent 2D echo. 11. PAD: Recent abdominal aortogram revealed no significant aortoiliac disease bilaterally and moderate diffuse 50 to 60% stenosis involving the SFA with one- vessel runoff bilaterally. 12. Acute cystitis: Per IM Recommendations was on toprol XL 50 mg daily. Will consider at a lower dose. Obtain EKG to ascertain atrial flutter Patient is a poor candidate for long-term anticoagulation secondary to anemia and subdural hematoma in the past. Continue aspirin for stroke prophylaxis. Continue current secondary prevention measures. Fluid offloading via HD. Consider [facility]OT Justicifation of Admission Dx: Justifications for Admission: Justification of Admission Dx: N/A CARRIE MCCLAIN MD 07/21/21 1203: CARDIO Progress Notes Plan Plan Late entry for 07/20/2021 Patient seen and examined. Agree with above nurse practitioner note. Supportive care. TEJAL GUO APRN Jul 20, 2021 12:39 CARRIE MCCLAIN MD Jul 21, 2021 12:03
--- NOTE | 2021-07-20 12:42 | PN ---
DATE: 07/20/2021 SUBJECTIVE: The patient is sitting up in bed, eating his breakfast comfortably, in no apparent distress. On questioning him, he denied any complaint. The nursing staff stated that he apparently slid from his bed accidentally this morning without any injury. He is now on mechanically soft diet with thickened liquid. PHYSICAL EXAMINATION: GENERAL: When I examined him, he looked pale, cachectic, but no jaundice, cyanosis or thyromegaly. No jugular venous distention. No lower limb edema. VITAL SIGNS: His heart rate was 75, blood pressure was 154/67, temperature 98.9, respiratory rate was 18 and oxygen saturation was 100%. HEAD, EYES, EARS, NOSE, AND THROAT: Showed normocephalic, atraumatic. NECK: Supple. HEART: Showed normal first and second heart sounds. No gallop, rub or murmur. CHEST: Clear to auscultation, no crepitation or rhonchi. ABDOMEN: Distended, soft, nontender. NEUROLOGIC: He is awake, alert, responding appropriately. All cranial nerves intact. He moves upper extremities without difficulty. He has left below-knee amputation. His intake is 1432, output was 225. LABORATORY DATA: He has no lab work this morning. As of yesterday, his white cell count was 16.8, hemoglobin 11, hematocrit 36, MCV 86 and platelet count of 198,000. His chemistry is variable as he is hemodialysis dependent. His blood cultures showed no growth after 1 day. His urine culture showed growth of 10,000 colony forming units per mL of Staphylococcus simulans. ASSESSMENT AND PLAN: 1. Altered mental status, likely due to hyperglycemia, resolved. He is awake, alert. 2. Recurrent bouts of nausea, vomiting, aspiration pneumonia with marked leukocytosis for which he is on IV Zosyn and vancomycin. 3. Seizure disorder for which he is on Keppra. 4. The patient has a multitude of other medical problems including: A. End-stage renal disease, on hemodialysis Monday, Monday, Monday. B. Insulin-dependent type 1 diabetes mellitus. C. Atrial fibrillation, rate controlled, not anticoagulated. D. Coronary artery disease, status post coronary artery bypass graft surgery. E. Hypertension. F. Cerebrovascular accident with left occipital infarct and bilateral basal ganglia infarct. G. Peripheral neuropathy. H. Seizure disorder. I. Peripheral vascular disease, status post left below-knee amputation. J. Anemia of chronic kidney disease. The patient seems to be stable. He can be transferred to the floor. I spoke with the nursing home social worker to start arranging for placement in a shelter facility as his sister is unable to take care of him at home. CHERYL/LUISITO/ERNESTO DR: Tyler TID: [id number]
--- NOTE | 2021-07-20 15:50 | EKG ---
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
--- NOTE | 2021-07-20 19:20 | NUR ---
Pt in bed assessment completed vss poc explained pt denied pain at this time pt reminded to call for assistance prior to getting oob call light in reach bed alarm set will resume care and continue to monitor pt.
[2021-07-21 03:00] VITALS: BP 115/58
[2021-07-21] MEDS: PANTOPRAZOLE 40 MG TABLET.DR. PO SCH ×2 (05:47→08:29)
[2021-07-21] MEDS: PIPERACILLIN/TAZOBACTAM 2.25 GM in IV NORMAL SALINE 50ML 50 ML IV SCH ×3 (05:47→21:20)
[2021-07-21] MEDS ORDERED: VANCOMYCIN RANDOM LEVEL. MC ONE (06:00)
[2021-07-21 06:44] LABS: HEMATOCRIT 32.6 % (39.0-53.0); RED BLOOD COUNT 3.8 x10^6/uL (4.30-5.70); RED CELL DISTRIBUTION WIDTH 20.4 % (11.5-14.5); WHITE BLOOD COUNT 8.6 x10^3/uL (4.0-11.0)
[2021-07-21 06:49] LABS: CALCIUM 9.5 mg/dL (8.5-10.1); GFR 9.8; POTASSIUM 3.8 mmol/L (3.5-5.1)
[2021-07-21 07:00] VITALS: BP 176/99
[2021-07-21] MEDS ORDERED: ALBUMIN HUMAN 25% 200 ML IV PRN (08:15)
[2021-07-21] MEDS ORDERED: IV NORMAL SALINE 1000ML BAG 1,000 ML IV PRN ×2 (08:15)
[2021-07-21] MEDS ORDERED: DIALYSIS PATIENT. MC PRN ×2 (08:15)
[2021-07-21] MEDS: INSULIN LISPRO 300 UNITS/3 ML VIAL. SQ SCH ×4 (08:29→21:00)
[2021-07-21] MEDS: HEPARIN for SUB-Q USE 5,000 UNIT/ML VIAL. SQ SCH ×2 (08:29→21:16)
[2021-07-21] MEDS: POLYETHYLENE GLYCOL 3350 17 GM PACKET. PO SCH (08:32)
--- NOTE | 2021-07-21 10:05 | PDOC ---
Date of Service: DATE: 07/21/21 TIME: 10:01 Subjective: Subjective: Denies GI complaints. Says tolerating diet. Later says he ate four steaks and eggs for breakfast. Objective: Vital Signs: Vital Signs Date Time Temp Pulse Resp B/P (MAP) Pulse Ox O2 Delivery O2 Flow Rate FiO2 07/21/21 08:00 Room Air 07/21/21 07:00 97.9 89 16 176/99 (124) 98 97.9 07/20/21 19:20 2.0 Labs: Laboratory Tests Test 07/20/21 12:45 07/20/21 17:32 07/20/21 18:57 07/20/21 20:55 Glucose (Fingerstick) 255 mg/dL 161 mg/dL 153 mg/dL 154 mg/dL Test 07/21/21 05:35 07/21/21 07:37 White Blood Count 8.6 x10^3/uL Red Blood Count 3.80 x10^6/uL Hemoglobin 10.0 g/dL Hematocrit 32.6 % Mean Corpuscular Volume 86 fL Mean Corpuscular Hemoglobin 26 pg Mean Corpuscular Hemoglobin Concent 31 g/dL Red Cell Distribution Width 20.4 % Platelet Count 174 x10^3/uL Sodium Level 138 mmol/L Potassium Level 3.8 mmol/L Chloride Level 99 mmol/L Carbon Dioxide Level 23 mmol/L Anion Gap 16 Blood Urea Nitrogen 34 mg/dL Creatinine 6.0 mg/dL Estimated GFR (Cockcroft-Gault) 9.8 Glucose Level 223 mg/dL Calcium Level 9.5 mg/dL Glucose (Fingerstick) 220 mg/dL BLOOD CULTURE Preliminary NO GROWTH AFTER 3 DAYS PE: GEN: NAD - dialyzing LUNGS: CTAB HEART: RRR ABD: soft, non-distended NEURO/PSYCH: A & O, probably some confusion A/P: COVID PCR positive, ESRD, A Fib, encephalopathy Vomiting (resolved), constipation FABRICIO/ACD -- Continue Miralax and PPI. Justicifation of Admission Dx: Justifications for Admission: Justification of Admission Dx: N/A ZARA BALBUENA Jul 21, 2021 10:05
--- NOTE | 2021-07-21 10:33 | PDOC ---
Renal-Progress Notes Subjective Notes Notes FEELING A LITTLE BETTER History of Present Illness Hx of present illness STABLE Vitals Vitals Vital Signs Date Time Temp Pulse Resp B/P (MAP) Pulse Ox O2 Delivery O2 Flow Rate FiO2 07/21/21 08:00 Room Air 07/21/21 07:00 97.9 89 16 176/99 (124) 98 97.9 07/20/21 19:20 2.0 Weight Weight [ ] I.O. Intake and Output Intake and Output 07/21/21 07:00 Intake Total 610 ml Output Total 10 ml Balance 600 ml Intake Oral 510 ml IV Total 100 ml Output Urine Total 10 ml Labs Labs Laboratory Tests Test 07/20/21 12:45 07/20/21 17:32 07/20/21 18:57 07/20/21 20:55 Glucose (Fingerstick) 255 mg/dL (70-99) 161 mg/dL (70-99) 153 mg/dL (70-99) 154 mg/dL (70-99) Test 07/21/21 05:35 07/21/21 07:37 White Blood Count 8.6 x10^3/uL (4.0-11.0) Red Blood Count 3.80 x10^6/uL (4.30-5.70) Hemoglobin 10.0 g/dL (13.0-17.5) Hematocrit 32.6 % (39.0-53.0) Mean Corpuscular Volume 86 fL (79-100) Mean Corpuscular Hemoglobin 26 pg (25-35) Mean Corpuscular Hemoglobin Concent 31 g/dL (31-37) Red Cell Distribution Width 20.4 % (11.5-14.5) Platelet Count 174 x10^3/uL (140-400) Sodium Level 138 mmol/L (136-145) Potassium Level 3.8 mmol/L (3.5-5.1) Chloride Level 99 mmol/L (98-107) Carbon Dioxide Level 23 mmol/L (21-32) Anion Gap 16 (6-14) Blood Urea Nitrogen 34 mg/dL (8-26) Creatinine 6.0 mg/dL (0.7-1.3) Estimated GFR (Cockcroft-Gault) 9.8 Glucose Level 223 mg/dL (70-99) Calcium Level 9.5 mg/dL (8.5-10.1) Glucose (Fingerstick) 220 mg/dL (70-99) Micro Micro Microbiology 07/18/21 Blood Culture - Preliminary, Resulted NO GROWTH AFTER 2 DAYS 07/17/21 Urine Culture - Final, Complete Staphylococcus Simulans Staphylococcus Simulans#2 Corynebacter Osmarikeium (Grp Jk) Review of Systems Constitutional: yes: alert Ears/Nose/Throat: Yes: no symptom reported Eyes: Yes: no symptom reported Pulmonary: Yes no symptom reported Cardiovascular: Yes no symptom reported Gastrointestional: Yes: no symptom reported Genitourinary: Yes: no symptom reported Musculoskeletal: Yes: no symptom reported Skin: Yes no symptom reported Psychiatric/Neurological: Yes: no symptom reported Endocrine: Yes: no symptom reported Physical Exam General Appearance: no apparent distress Skin: warm Respiratory: decreased breath sounds Heart: S1S2 Abdomen: soft, bowel sounds present Genitourinary: bladder flat Extremities: pulses present Neurology: alert, confused Assessment Assessment IMP [id number] IJ TDC ANEMIA OF ESRD BRADYCARDIA HYPOTENSION-RESOLVED FLUID OVERLOAD HYPOGLYCEMIA LEUCOCYTOSIS DM II UTI COVID 19 POS LEFT BKA WOUND-HEALING PLAN ANTIBIOTICS CARDIOLOGY EVAL VINNIE WHEN NEEDED HD TODAY UF TO TW WILL FOLLOW NUBIA PATTON MD Jul 21, 2021 10:33
--- NOTE | 2021-07-21 11:13 | PDOC ---
PROGRESS NOTES Date of Service DATE: 07/21/21 TIME: 11:11 Assessment Problems Medical Problems: (1) Acute cystitis Status: Acute (2) Acute metabolic encephalopathy Status: Acute (3) Breakthrough seizure Status: Acute (4) Hypoglycemia unawareness due to type 2 diabetes mellitus Status: Acute (5) Sick sinus syndrome Status: Acute (6) Symptomatic bradycardia Status: Acute (7) Uremia Status: Acute (8) Volume overload Status: Acute Metabolic encephalopathy, plenty of metabolic issues to explain his altered mental status, I do not think he had recurrent seizures. 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 History of psychogenic nonepileptic seizures, still taking levetiracetam. I have been hesitant to stop this as we never prove that he had psychogenic seizures, just had a negative work-up for organic epilepsy Anemia, end-stage renal disease on dialysis, hypoglycemia, UTI, hypotension, T ype 1 diabetes with neuropathy, metabolic acidosis Also has history of atrial fibrillation, coronary artery disease, hypertension, peripheral artery disease Plan Continue to treat medical issues Switch to oral levetiracetam No additional neurological investigations required Neurology will follow at intervals Subjective Patient feels well, wants to go home Objective Vital Signs Date Time Temp Pulse Resp B/P (MAP) Pulse Ox O2 Delivery O2 Flow Rate FiO2 07/21/21 08:00 Room Air 07/21/21 07:00 97.9 89 16 176/99 (124) 98 97.9 07/20/21 19:20 2.0 Intake and Output 07/21/21 07:00 Intake Total 610 ml Output Total 10 ml Balance 600 ml Intake Oral 510 ml IV Total 100 ml Output Urine Total 10 ml PHYSICAL EXAM Alert. Oriented to place and person, not date. PERRL. EOMI. CN: no focal findings. Muscle tone: normal. Muscle strength: 3-4/5 DTR: 0+ Plantar reflex: Flexor on right, left BKA Gait: not examined in bed. Sensory exam: stocking loss. No cerebellar signs elicited. Review of Relevant I have reviewed the following items yifan (where applicable) has been applied. Labs Laboratory Tests Test 07/19/21 12:46 07/19/21 20:10 07/20/21 01:36 07/20/21 08:39 Iron Level 21 ug/dL (65-175) Total Iron Binding Capacity 146 ug/dL (250-450) Iron Saturation 14 % (15-34) Ammonia 14 mcmol/L (11-34) Glucose (Fingerstick) 259 mg/dL (70-99) 224 mg/dL (70-99) 235 mg/dL (70-99) Test 07/20/21 12:45 07/20/21 17:32 07/20/21 18:57 07/20/21 20:55 Glucose (Fingerstick) 255 mg/dL (70-99) 161 mg/dL (70-99) 153 mg/dL (70-99) 154 mg/dL (70-99) Test 07/21/21 05:35 07/21/21 07:37 White Blood Count 8.6 x10^3/uL (4.0-11.0) Red Blood Count 3.80 x10^6/uL (4.30-5.70) Hemoglobin 10.0 g/dL (13.0-17.5) Hematocrit 32.6 % (39.0-53.0) Mean Corpuscular Volume 86 fL (79-100) Mean Corpuscular Hemoglobin 26 pg (25-35) Mean Corpuscular Hemoglobin Concent 31 g/dL (31-37) Red Cell Distribution Width 20.4 % (11.5-14.5) Platelet Count 174 x10^3/uL (140-400) Sodium Level 138 mmol/L (136-145) Potassium Level 3.8 mmol/L (3.5-5.1) Chloride Level 99 mmol/L (98-107) Carbon Dioxide Level 23 mmol/L (21-32) Anion Gap 16 (6-14) Blood Urea Nitrogen 34 mg/dL (8-26) Creatinine 6.0 mg/dL (0.7-1.3) Estimated GFR (Cockcroft-Gault) 9.8 Glucose Level 223 mg/dL (70-99) Calcium Level 9.5 mg/dL (8.5-10.1) Glucose (Fingerstick) 220 mg/dL (70-99) Laboratory Tests Test 07/20/21 12:45 07/20/21 17:32 07/20/21 18:57 07/20/21 20:55 Glucose (Fingerstick) 255 mg/dL (70-99) 161 mg/dL (70-99) 153 mg/dL (70-99) 154 mg/dL (70-99) Test 07/21/21 05:35 07/21/21 07:37 White Blood Count 8.6 x10^3/uL (4.0-11.0) Red Blood Count 3.80 x10^6/uL (4.30-5.70) Hemoglobin 10.0 g/dL (13.0-17.5) Hematocrit 32.6 % (39.0-53.0) Mean Corpuscular Volume 86 fL (79-100) Mean Corpuscular Hemoglobin 26 pg (25-35) Mean Corpuscular Hemoglobin Concent 31 g/dL (31-37) Red Cell Distribution Width 20.4 % (11.5-14.5) Platelet Count 174 x10^3/uL (140-400) Sodium Level 138 mmol/L (136-145) Potassium Level 3.8 mmol/L (3.5-5.1) Chloride Level 99 mmol/L (98-107) Carbon Dioxide Level 23 mmol/L (21-32) Anion Gap 16 (6-14) Blood Urea Nitrogen 34 mg/dL (8-26) Creatinine 6.0 mg/dL (0.7-1.3) Estimated GFR (Cockcroft-Gault) 9.8 Glucose Level 223 mg/dL (70-99) Calcium Level 9.5 mg/dL (8.5-10.1) Glucose (Fingerstick) 220 mg/dL (70-99) Microbiology 07/18/21 Blood Culture - Preliminary, Resulted NO GROWTH AFTER 2 DAYS 07/17/21 Urine Culture - Final, Complete Staphylococcus Simulans Staphylococcus Simulans#2 Corynebacter Jeikeium (Grp Jk) Medications Current Medications Atropine Sulfate (ATROPINE 1mg SYRINGE) 1 mg STK-MED ONCE .ROUTE ; Start 07/17/21 at 13:30; Stop 07/17/21 at 13:30; Status DC Sodium Chloride 250 ml @ 500 mls/hr 1X ONCE IV Last administered on 07/17/21at 13:48; Start 07/17/21 at 13:30; Stop 07/17/21 at 13:59; Status DC Piperacillin Sod/ Tazobactam Sod 2.25 gm/Sodium Chloride 50 ml @ 100 mls/hr 1X ONCE IV Last administered on 07/17/21 14:32; Start 07/17/21 at 13:30; Stop 07/17/21 at 13:59; Status DC Vancomycin HCl (Vanco Per Pharmacy) 1 each PRN DAILY PRN MC SEE COMMENTS Last administered on 07/19/21at 07:01; Start 07/17/21 at 13:30; Stop 07/19/21 at 10:37; Status DC Levetiracetam 100 ml @ 400 mls/hr Q12HR IV Last administered on 07/17/21at 23:03; Start 07/17/21 at 21:00; Stop 07/18/21 at 09:47; Status DC Atropine Sulfate (ATROPINE 0.5mg SYRINGE) 1 mg 1X ONCE IV Last administered on 07/17/21 13:32; Start 07/17/21 at 13:30; Stop 07/17/21 at 13:42; Status DC Calcium Gluconate (Calcium Gluconate) 1,000 mg 1X ONCE IVP Last administered on 07/17/21at 13:25; Start 07/17/21 at 13:30; Stop 07/17/21 at 13:42; Status DC Epinephrine HCl 5 mg/Sodium Chloride 255 ml @ 21.114 mls/ hr CONT PRN IV SEE I/O RECORD Last administered on 07/17/21at 14:17; Start 07/17/21 at 13:45; Stop 07/20/21 at 18:41; Status DC Vancomycin HCl 1.75 gm/Sodium Chloride 500 ml @ 250 mls/hr 1X ONCE IV Last administered on 07/17/21at 15:00; Start 07/17/21 at 15:00; Stop 07/17/21 at 16:59; Status DC Dopamine HCl/ Dextrose 250 ml @ 12.994 mls/ hr 1X ONCE IV Last administered on 07/17/21at 14:56; Start 07/17/21 at 14:15; Stop 07/18/21 at 09:29; Status DC Dextrose (Dextrose 50%-Water Syringe) 25 gm 1X ONCE IV Last administered on 07/17/21at 15:56; Start 07/17/21 at 16:15; Stop 07/17/21 at 16:16; Status DC Dextrose 1,000 ml @ 125 mls/hr 1X ONCE IV ; Start 07/17/21 at 16:15; Stop 07/18/21 at 00:14; Status DC Ondansetron HCl (Zofran) 4 mg PRN Q8HRS PRN IVP NAUSEA/VOMITING Last administered on 07/18/21at 07:41; Start 07/17/21 at 16:30; Stop 07/18/21 at 13:18; Status DC Sodium Chloride 1,000 ml @ 1,000 mls/hr Q1H PRN IV hypotension; Start 07/17/21 at 18:00; Stop 07/17/21 at 23:59; Status DC Sodium Chloride 1,000 ml @ 400 mls/hr Q2H30M PRN IV PATENCY; Start 07/17/21 at 18:00; Stop 07/18/21 at 05:59; Status DC Info (PHARMACY MONITORING -- do not chart) 1 each PRN DAILY PRN MC SEE COMMENTS; Start 07/17/21 at 18:00; Stop 07/21/21 at 08:29; Status DC Piperacillin Sod/ Tazobactam Sod (Zosyn Per Pharmacy) 1 each PRN DAILY PRN MC SEE COMMENTS; Start 07/18/21 at 09:30 Vancomycin HCl (Vanco Per Pharmacy) 1 each PRN DAILY PRN MC SEE COMMENTS; Start 07/18/21 at 09:30; Status UNV Levetiracetam 100 ml @ 400 mls/hr Q48H IV ; Start 07/19/21 at 21:00; Stop 07/18/21 at 14:55; Status DC Piperacillin Sod/ Tazobactam Sod 2.25 gm/Sodium Chloride 50 ml @ 100 mls/hr Q8HRS IV Last administered on 07/21/21at 05:47; Start 07/18/21 at 14:00 Ringer's Solution 1,000 ml @ 75 mls/hr [id number] IV Last administered on 07/20/21at 00:13; Start 07/18/21 at 12:00 Ondansetron HCl (Zofran) 4 mg PRN Q4HRS PRN IVP NAUSEA/VOMITING Last administered on 07/18/21at 13:27; Start 07/18/21 at 13:15; Stop 07/19/21 at 13:14; Status DC Insulin Human Lispro (HumaLOG) 0-5 UNITS Q6H SQ Last administered on 07/20/21at 17:34; Start 07/18/21 at 13:30; Stop 07/20/21 at 19:40; Status DC Dextrose (Dextrose 50%-Water Syringe) 12.5 gm PRN Q15MIN PRN IV SEE COMMENTS; Start 07/18/21 at 13:30 Dextrose (Iv Dextrose 5%) 250 ml PRN Q15MIN PRN IV SEE COMMENTS; Start 07/18/21 at 13:30 Vancomycin HCl (Vancomycin Random Level) 1 each 1X ONCE MC Last administered on 07/19/21at 06:00; Start 07/19/21 at 06:00; Stop 07/19/21 at 06:01; Status DC Levetiracetam (Keppra) 500 mg BID PO ; Start 07/18/21 at 21:00; Stop 07/18/21 at 21:45; Status DC Levetiracetam 100 ml @ 400 mls/hr Q12HR IV Last administered on 07/21/21at 08:32; Start 07/18/21 at 22:00 Vancomycin HCl (Vancomycin Random Level) 1 each 1X ONCE MC ; Start 07/21/21 at 06:00; Stop 07/19/21 at 10:37; Status DC Sodium Chloride 1,000 ml @ 1,000 mls/hr Q1H PRN IV hypotension; Start 07/19/21 at 08:15; Stop 07/19/21 at 14:14; Status DC Sodium Chloride 1,000 ml @ 400 mls/hr Q2H30M PRN IV PATENCY; Start 07/19/21 at 08:15; Stop 07/19/21 at 20:14; Status DC Info (PHARMACY MONITORING -- do not chart) 1 each PRN DAILY PRN MC SEE COMMENTS; Start 07/19/21 at 08:15; Status Cancel Heparin Sodium (Porcine) (Heparin Sodium) 5,000 unit Q12HR SQ Last administered on 07/21/21at 08:29; Start 07/19/21 at 11:00 Bisacodyl (Dulcolax Supp) 10 mg PRN DAILY PRN [place] CONSTIPATION; Start 07/19/21 at 11:45 Pantoprazole Sodium (PROTONIX VIAL for IV PUSH) 40 mg DAILYAC IVP Last administered on 07/20/21at 09:10; Start 07/19/21 at 11:45; Stop 07/20/21 at 10:05; Status DC Pantoprazole Sodium (Protonix) 40 mg DAILYAC PO Last administered on 07/21/21at 08:29; Start 07/21/21 at 07:30 Polyethylene Glycol (miraLAX PACKET) 17 gm DAILY PO Last administered on 07/21/21at 08:32; Start 07/21/21 at 09:00 Bisacodyl (Dulcolax Tab) 5 mg PRN DAILY PRN PO CONSTIPATION; Start 07/20/21 at 10:15 Insulin Human Lispro (HumaLOG) 0-5 UNITS TIDACHC SQ Last administered on 07/21/21at 08:29; Start 07/20/21 at 21:00 Sodium Chloride 1,000 ml @ 1,000 mls/hr Q1H PRN IV hypotension; Start 07/21/21 at 08:15; Stop 07/21/21 at 14:14 Albumin Human 200 ml @ 200 mls/hr 1X PRN PRN IV Hypotension; Start 07/21/21 at 08:15; Stop 07/21/21 at 14:14 Sodium Chloride 1,000 ml @ 400 mls/hr Q2H30M PRN IV PATENCY; Start 07/21/21 at 08:15; Stop 07/21/21 at 20:14 Info (PHARMACY MONITORING -- do not chart) 1 each PRN DAILY PRN MC SEE COMMENTS; Start 07/21/21 at 08:15; Stop 07/21/21 at 08:28; Status DC Info (PHARMACY MONITORING -- do not chart) 1 each PRN DAILY PRN MC SEE COMMENTS; Start 07/21/21 at 08:15 Active Scripts Active Metoprolol Succinate 50 Mg Tab.er.24h 50 Mg PO DAILY 30 Days Levetiracetam 500 Mg Tablet 500 Mg PO BID 30 Days Reported Seroquel (Quetiapine Fumarate) 25 Mg Tablet 1 Tab PO QHS Mupirocin Cream (Mupirocin) 15 Gm Cream..g. 1 Ruth TP BID 10 Days Acidophilus (Lactobacillus Acidophilus) 100 Mg Capsule 1 Cap PO BID 30 Days Pantoprazole Sodium (Pantoprazole Sodium) 40 Mg Tablet.dr 40 Mg PO DAILYAC Trazodone Hcl 50 Mg Tablet 1 Tab PO QHS Xultophy 100 Unit-3.6 mg/ml (Insulin Degludec/Liraglutide) 3 Ml Insuln.pen 24 Ml SQ HS Vitamin D (Cholecalciferol (Vitamin D3)) 1,000 Unit Capsule 1 Cap PO DAILY Atorvastatin Calcium 10 Mg Tablet 10 Mg PO DAILY Sildenafil (Sildenafil Citrate) 20 Mg Tablet 20 Mg PO TID Zetia (Ezetimibe) 10 Mg Tablet 10 Mg PO DAILY Topiramate 100 Mg Tablet 100 Mg PO BID Promethazine Hcl 25 Mg Tablet 25 Mg PO Q6H PRN B-12 (Cyanocobalamin (Vitamin B-12)) 1,000 Mcg Tablet 1,000 Mcg PO DAILY Vascepa (Icosapent Ethyl) 1 Gm Capsule 2 Cap PO BID Aspirin Ec (Aspirin) 81 Mg Tablet.dr 81 Mg PO DAILY Duloxetine Hcl 60 Mg Capsule.dr 60 Mg PO HS Lyrica (Pregabalin) 225 Mg Capsule 225 Mg PO BID Losartan-Hctz 100-25 Mg Tab (Losartan/Hydrochlorothiazide) 1 Each Tablet 25 Mg PO DAILY Mirtazapine 45 Mg Tablet 45 Mg PO HS Amlodipine Besylate 5 Mg Tablet 5 Mg PO DAILY Vitals/I & O Vital Sign - Last 24 Hours 07/20/21 07/20/21 07/20/21 07/20/21 12:00 16:00 19:20 22:41 Temp 97.6 98.6 97.8 97.6 98.6 97.8 Pulse 74 87 75 Resp 24 20 18 B/P (MAP) 154/69 165/78 151/79 (103) Pulse Ox 98 98 97 O2 Delivery Room Air Room Air Room Air Room Air O2 Flow Rate 2.0 07/21/21 07/21/21 07/21/21 03:00 07:00 08:00 Temp 97.7 97.9 97.7 97.9 Pulse 80 89 Resp 18 16 B/P (MAP) 115/58 (77) 176/99 (124) Pulse Ox 98 98 O2 Delivery Room Air Room Air Room Air Intake and Output 07/20/21 07/20/21 07/21/21 15:00 23:00 07:00 Intake Total 175 ml 75 ml 360 ml Output Total 10 ml Balance 165 ml 75 ml 360 ml Justicifation of Admission Dx: Justifications for Admission: Justification of Admission Dx: N/A PAOLA DICK MD Jul 21, 2021 11:13
--- NOTE | 2021-07-21 12:02 | PDOC ---
TEJAL GUO INJURY PREVENTION COORDINATOR 07/21/21 1202: CARDIO Progress Notes Date and Time Date of Service 07/21/2021 Time of Evaluation 1150 Subjective Subjective: No Chest Pain, No shortness of breath, No Palpitations Vitals Vitals Vital Signs Date Time Temp Pulse Resp B/P (MAP) Pulse Ox O2 Delivery O2 Flow Rate FiO2 07/21/21 08:00 Room Air 07/21/21 07:00 97.9 89 16 176/99 (124) 98 97.9 07/20/21 19:20 2.0 Weight Weight [ ] Input and Output Intake and Output Intake and Output 07/21/21 07:00 Intake Total 610 ml Output Total 10 ml Balance 600 ml Intake Oral 510 ml IV Total 100 ml Output Urine Total 10 ml Laboratory Labs Laboratory Tests Test 07/20/21 12:45 07/20/21 17:32 07/20/21 18:57 07/20/21 20:55 Glucose (Fingerstick) 255 mg/dL (70-99) 161 mg/dL (70-99) 153 mg/dL (70-99) 154 mg/dL (70-99) Test 07/21/21 05:35 07/21/21 07:37 White Blood Count 8.6 x10^3/uL (4.0-11.0) Red Blood Count 3.80 x10^6/uL (4.30-5.70) Hemoglobin 10.0 g/dL (13.0-17.5) Hematocrit 32.6 % (39.0-53.0) Mean Corpuscular Volume 86 fL (79-100) Mean Corpuscular Hemoglobin 26 pg (25-35) Mean Corpuscular Hemoglobin Concent 31 g/dL (31-37) Red Cell Distribution Width 20.4 % (11.5-14.5) Platelet Count 174 x10^3/uL (140-400) Sodium Level 138 mmol/L (136-145) Potassium Level 3.8 mmol/L (3.5-5.1) Chloride Level 99 mmol/L (98-107) Carbon Dioxide Level 23 mmol/L (21-32) Anion Gap 16 (6-14) Blood Urea Nitrogen 34 mg/dL (8-26) Creatinine 6.0 mg/dL (0.7-1.3) Estimated GFR (Cockcroft-Gault) 9.8 Glucose Level 223 mg/dL (70-99) Calcium Level 9.5 mg/dL (8.5-10.1) Glucose (Fingerstick) 220 mg/dL (70-99) Microbiology Micro Microbiology 07/18/21 Blood Culture - Preliminary, Resulted NO GROWTH AFTER 2 DAYS 07/17/21 Urine Culture - Final, Complete Staphylococcus Simulans Staphylococcus Simulans#2 Corynebacter Jeikeium (Grp Jk) Review of Systems Constitutional: yes: alert Ears/Nose/Throat: Yes: no symptom reported Eyes: Yes: no symptom reported Pulmonary: Yes no symptom reported Cardiovascular: Yes no symptom reported Gastrointestional: Yes: no symptom reported Genitourinary: Yes: no symptom reported Musculoskeletal: Yes: no symptom reported Skin: Yes no symptom reported Psychiatric/Neurological: Yes: no symptom reported Endocrine: Yes: no symptom reported Physical Exam HEENT: Neck Supple W Full Motion Chest: Symmetric LUNGS: Other (diminished bases) Heart: irregularly irregular (atrial flutter) Abdomen: Soft N/T Extremities: No Edema, Other (left BKA ) Neurology: alert, oriented, follow commands Assessment Assessment 1. PAF presenting with atrial flutter with slow VR. BB held. Improved, off dopamine infusion. No significant pauses noted on telemetry. No clear indication for permanent pacemaker implantation at this time. Appears to be in atrial flutter rate controlled, no further nataly episodes 2. Acute metabolic encephalopathy: resolved 3. ESRD on HD 4. Seizure disorder: on Keppra. Neurology following 5. CAD: s/p CABG. clinically stable and chest pain-free. 6. HTN; labile 7. DM2: Treat per IM 8. S/P LBKA 9. Ischemic cardiomyopathy, chronic systolic heart failure LV EF 30-35%, clinically well compensated 10. Mild to moderate , moderate to severe TR. Estimated PAP 60 mmHg on recent 2D echo. 11. PAD: Recent abdominal aortogram revealed no significant aortoiliac disease bilaterally and moderate diffuse 50 to 60% stenosis involving the SFA with one- vessel runoff bilaterally. 12. Acute cystitis: Per IM Recommendations was on toprol XL 50 mg daily. Will consider restart at a lower dose. Restart home [facility] Patient is a poor candidate for long-term anticoagulation secondary to anemia and subdural hematoma in the past. Continue aspirin for stroke prophylaxis. Continue current secondary prevention measures. Fluid offloading via HD. Pending SNU, will place MCOT prior to DC to ascertain any further bradyarrhythmias. Justicifation of Admission Dx: Justifications for Admission: Justification of Admission Dx: N/A CARRIE MCCLAIN MD 07/22/21 0409: CARDIO Progress Notes Plan Plan Late entry for 07/21/21 Pt. seen and examined. Agree with above METHODS ANALYST note. Supportive care. Thanks TEJAL GUO APRN Jul 21, 2021 12:02 CARRIE MCCLAIN MD Jul 22, 2021 04:09
--- NOTE | 2021-07-21 13:19 | PN ---
DATE: 07/21/2021 SUBJECTIVE: The patient is resting, slightly propped up in bed, no apparent distress. He has just finished his scheduled hemodialysis. On questioning him, he denied any complaint. The nursing staff stated he continued to be confused; however, he is definitely more awake than when he came to the hospital. PHYSICAL EXAMINATION: GENERAL: On examining him, he was pale, not jaundiced or cyanosed. No lymphadenopathy, no thyromegaly, no jugular venous distention. No limb edema. VITAL SIGNS: His heart rate was 89, blood pressure was 176/89, temperature was 97.9, respiratory rate was 18 and oxygen saturation was 98%. HEAD, EYES, EARS, NOSE, AND THROAT: Normocephalic, atraumatic. NECK: Supple. HEART: Normal first and second heart sounds. No gallop, rub or murmur. CHEST: Clear to auscultation, no crepitation or rhonchi. ABDOMEN: Scaphoid, soft, nontender. NEUROLOGIC: He continued to be somewhat confused, but all his cranial nerves intact. He moves upper extremities without difficulty. His intake and output were incompletely recorded. LABORATORY DATA: As of this morning showed a white cell count of 8600, hemoglobin 10, hematocrit 33, MCV 86 and platelet count of 174,000. His chemistry is variable as he is hemodialysis dependent. ASSESSMENT: 1. Altered mental status, likely due to hypoglycemia, resolved. He is now more awake, alert, although continued to be confused at time. 2. Recurrent bouts of nausea, vomiting and aspiration pneumonia with marked leukocytosis for which he was started on IV vancomycin and Zosyn. His vancomycin was discontinued. 3. Seizure disorder for which he is on Keppra. 4. The patient has multitude of other medical problems including: A. End-stage renal disease, on hemodialysis on Monday, Monday, Monday. B. Insulin-dependent type 1 diabetes mellitus. C. Atrial fibrillation, rate controlled, not anticoagulated. D. Coronary artery disease status post coronary artery bypass graft surgery. E. Hypertension. F. Cerebrovascular accident with left occipital infarct and bilateral basal ganglia infarct. G. Peripheral neuropathy. H. Seizure disorder. I. Peripheral vascular disease, status post left below-knee amputation. J. Anemia of chronic kidney disease. PLAN: My plan is to consult the case management for him to be placed in a senior living facility as his family is unable to take care of him. CHERYL/EBEN DR: Tyler TID: [id number]
[2021-07-21] MEDS: METOPROLOL SUCC 24HR ER 25 MG TAB.ER.24H. PO SCH (13:45)
[2021-07-21] MEDS: IV RINGERS,LACTATED 1000ML 1,000 ML IV SCH ×2 (14:00→21:21)
--- NOTE | 2021-07-21 14:26 | PDOC2 ---
Consult: Reason for Consult Reason for Consult: Antibiotic management Referring Physician Referring Physician: MAURO Identification/Chief Complaint Chief Complaint Confusion Source Source: Chart review History of Present Illness Reason for Visit: 55-year-old male with history of end-stage renal disease on HD, recent BKA was brought in to [facility] ED with confusion and low blood glucose. CT head was negative for acute findings. He was found to be bradycardic. WBC on admission was within normal limits. Following day it was elevated to greater than 20 K. Patient also had nausea, vomiting. Patient had pyuria. Patient was started on IV Vanco and Zosyn. CT abdomen pelvis was done. It showed multiple abn ormalities. KUB was negative for obstruction. Blood cultures are negative. Urine culture grew polymicrobial organism. Patient is currently on Zosyn. Random vancomycin level was 36.5 today. Vancomycin is on hold. ID consultation has been requested for antibiotic management. Past Medical History Cardiovascular: AFIB, CAD, CHF, HTN, NE, Hyperlipidemia Pulmonary: COPD CENTRAL NERVOUS SYSTEM: CVA, Periperal neuropathy, Seizure GI: Constipation, GERD Psych: Depression Rheumatologic: Other Renal/: Chronic renal failure, Urinary Incontinence Endocrine: Diabetes Past Surgical History Past Surgical History: CABG, Other Family History Family History: Diabetes, Hypertension, Family History Unknown Social History ALCOHOL: none Drugs: None Lives: Intermediate Current Problem List Problem List Problems Medical Problems: (1) Acute cystitis Status: Acute (2) Acute metabolic encephalopathy Status: Acute (3) Breakthrough seizure Status: Acute (4) Hypoglycemia unawareness due to type 2 diabetes mellitus Status: Acute (5) Sick sinus syndrome Status: Acute (6) Symptomatic bradycardia Status: Acute (7) Uremia Status: Acute (8) Volume overload Status: Acute Current Medications Current Medications Zosyn Vancomycin Other medications reviewed in medication list Allergies Allergies: Coded Allergies: No Known Drug Allergies (Unverified , 01/23/14) ROS Review of System Limited but patient denies any fever, chills, nausea, vomiting, diarrhea, abdominal pain Physical Exam General: Alert, Cooperative sitting upright in bed, No acute distress HEENT: Atraumatic, PERRLA Lungs: Clear to auscultation Heart: S1-S2 no murmurs Abdomen: Nondistended bowel sounds present nontender Extremities: No edema, right BKA stump with gopi in place intact, dry skin no surrounding redness, no fluctuance Right TMA scar well-healed Skin: No breakdown, dry skin. Scattered scabs. Neuro: Alert awake somewhat confused Psych/Mental Status: Calm cooperative somewhat confused MUSCULOSKELETAL: No joint tenderness, Other (LEFT TMA, RIGHT BKA) Microbiology 07/18/21 Blood Culture - Preliminary, Resulted NO GROWTH AFTER 2 DAYS 07/17/21 Urine Culture - Final, Complete Staphylococcus Simulans Staphylococcus Simulans#2 Corynebacter Nohemiium (Grp Jk) Diagnostics PATIENT: FER CHAUDHARY ACCOUNT: [id number] : 1965 LOCATION: [address] [place] [address] AGE: 55 SEX: M EXAM STATUS: ADM IN ORD. PHYSICIAN: KAHLIL WADE MD REASON: diffuse abdominal pain with recurrent bouts of nauseaand vomiting PROCEDURE: CT ABDOMEN PELVIS WO CONTRAST Study: CT abdomen/pelvis without intravenous contrast Indication: Diffuse abdominal pain. Recurrent bouts of nausea and vomiting. Comparison: CT abdomen/pelvis 01/23/2014; CT chest 09/13/2017 Technique: Helical CT imaging performed of the abdomen and pelvis without the use of intravenous contrast. Sagittal and coronal reformats were obtained. One or more of the following individualized dose reduction techniques were utilized for this examination: 1. Automated exposure control 2. Adjustment of the mA and/or kV according to patient size 3. Use of iterative reconstruction technique. Findings: Inherently limited evaluation without intravenous contrast. Central venous catheter tip terminating at the upper right atrium. Calcific coronary artery disease. Small hiatal hernia. Limited evaluation of the lower esophageal wall. There is fluid/debris within the distal esophageal lumen. No surrounding inflammation. Median sternotomy changes. Groundglass and nodular infiltrates at the lower lungs in addition to mild atelectasis. Posterior left lower lobe pleural-based nodule measures 5 mm. No discrete liver lesion. Absent gallbladder. No significant dilatation of the biliary tree. Partially atrophic pancreas. Within normal limits size of the spleen. Unremarkable adrenal glands. Small size of the kidneys with areas of cortical thinning. No hydronephrosis. Circumferential wall thickening of the urinary bladder noting incomplete distention. Mild wall thickening also present on the 2013 comparison. The prostate measures 4 cm transverse. Mild constipation. Mild colonic wall thickening at a few locations such as at the mid to distal sigmoid but felt unlikely related to an active colitis. Unremarkable appendix, image 75 series 2. No pathologic dilatation of small bow el. Distended stomach with gas and ingested material. No cause for mechanical gastric outlet obstruction apparent by CT. No gastric wall emphysema. Multifocal calcific atherosclerosis. Similarly sized mildly prominent inguinal lymph nodes from 2014. Mesenteric and body wall edema. Small volume ascites. Straightening of lumbar lordosis. Minimal curvature. Scattered degenerative ch anges. Impression: 1. Distended stomach with gas and ingested material. No obstructing process is seen or gastric wall emphysema. There is also some luminal distention of the distal esophagus. The findings are nonspecific but could be related to gastrop aresis. If there is concern for mechanical gastric outlet obstruction consider endoscopy. 2. Lower lung groundglass and nodular airspace infiltrates concerning for an atypical pneumonia and/or aspiration. Consider follow-up in 3-6 months to confirm resolution of the nodules. 3. Volume overload state with small volume ascites and mesenteric/body wall edema. 4. Mild constipation. 5. Small size of the kidneys as can be seen with chronic kidney disease. No hydronephrosis. 6. [place] calcific coronary artery disease. Median sternotomy changes appearing relatively recent. 7. Chronic observations described in the body of the report. PATIENT: FER CHAUDHARY ACCOUNT: [id number] : 1965 LOCATION: [facility] ICU AGE: 55 SEX: M EXAM STATUS: ADM IN ORD. PHYSICIAN: KAHLIL WADE MD REASON: recurrent bouts of nausea and vomiting [place] distended full of ingested PROCEDURE: KUB AP view of the abdomen Clinical indications: Recurrent bouts of nausea and vomiting. Stomach distention. FINDINGS: No obstructive bowel pattern is evident. There is mild fecal retention within the transverse colon. No dilatation of the colon is seen. No air-filled distention of the stomach is evident. IMPRESSION: No obstructive bowel pattern. Impression UTI likely contaminant with polymicrobial organisms On Zosyn Vancomycin on hold due to high random Vanco level End-stage renal disease on hemodialysis right temporary HD catheter Leukocytosis could have a reactive complaint Bradycardia Seizure disorder PAF, bradycardia Fluid overload Hypoglycemia Diabetes mellitus 2 Status post left BKA wound stable History of right TMA History of COVID-19 + May [address] abdomen Encephal[address] CT head negative for acute changes Recommendations Continue Zosyn DC vancomycin Local wound care as directed Maintain aspiration precautions Monitor labs and cultures Continue supportive care Thank you for consulting infectious disease reports within this patient's care. Discussed with nursing staff. JUAN ALBERTO COPE MD Jul 21, 2021 14:26
[2021-07-21 15:00] VITALS: BP 153/60
--- NOTE | 2021-07-21 15:10 | NUR ---
SS following up with discharge planning. SS reviewed pt chart and discussed with pt RN. Pt is currently on room air. COVID19 recovered. Pt on IV Zosyn. PT/OT recommended group home unit. Referrals sent to [facility], and [facility] yesterday. [facility] declined due to history of non-compliance. [facility] willing to accept if pt completes Medicaid application prior to discharging from the hospital. SS discussed with pt and contacted pt's sister and discussed. Pt and family reported that pt's mother is at home on hospice and they would like pt to return to home with home healthcare at this time with no preference of company. Physician notified. Referral sent to [facility], ; fax [phone]. Per physician, probable discharge to home tomorrow. SS will continue to follow for discharge planning.
[2021-07-21 19:00] VITALS: BP 140/76
[2021-07-21] MEDS: levETIRAcetam 500 MG TABLET PO SCH (21:11)
[2021-07-21] MEDS: LACTOBACILLUS RHAMNOSUS GG 1 CAPSULE. PO SCH (21:11)
--- NOTE | 2021-07-21 22:52 | NUR ---
Patient uncooperative with staff, refusing vitals and taking off his alarm security or surveillance monitor. Multiple attempts made by patient to exit bed and patient upset with nursing staff because of bed alarm being activated. Explained to patient that due to his recent fall on 07/20/21 that the bed alarm is a precaution to ensure his safety. Patient not receptive to explanation both raising his voice to staff and threatening to leave the hospital. Andre type inspector notified of situation and patient decided to not leave AMA. Patient agreeable to keep alarm security or surveillance monitor on and use call light for assistance.
[2021-07-21 23:01] VITALS: BP 148/82
--- NOTE | 2021-07-22 00:22 | NUR ---
Patient took off color television console monitor and refusing for staff to place back on.
--- NOTE | 2021-07-22 01:30 | NUR ---
Patient's bed alarm continues to be activated as patient refuses to stay in bed. When staff resets alarm patient immediately moves to side of bed to activate it and states he "...will not be bullied" and "...will bully right back" when staff attempts to reset alarm. Despite reminding patient that the alarm is only for his safety, patient insisting it be turned off.
--- NOTE | 2021-07-22 03:18 | NUR ---
Patient refusing 0300 vitals.
[2021-07-22] MEDS: PIPERACILLIN/TAZOBACTAM 2.25 GM in IV NORMAL SALINE 50ML 50 ML IV SCH ×2 (06:11→14:00)
[2021-07-22 07:00] VITALS: BP 157/89
[2021-07-22] MEDS: INSULIN LISPRO 300 UNITS/3 ML VIAL. SQ SCH ×2 (07:30→12:24)
[2021-07-22] MEDS: levETIRAcetam 500 MG TABLET PO SCH (09:03)
[2021-07-22] MEDS: LACTOBACILLUS RHAMNOSUS GG 1 CAPSULE. PO SCH (09:03)
[2021-07-22] MEDS: METOPROLOL SUCC 24HR ER 25 MG TAB.ER.24H. PO SCH (09:04)
[2021-07-22] MEDS: POLYETHYLENE GLYCOL 3350 17 GM PACKET. PO SCH (09:04)
[2021-07-22] MEDS: HEPARIN for SUB-Q USE 5,000 UNIT/ML VIAL. SQ SCH (09:05)
[2021-07-22] MEDS: IV RINGERS,LACTATED 1000ML 1,000 ML IV SCH (09:20)
--- NOTE | 2021-07-22 10:03 | PDOC ---
Date of Service: DATE: 07/22/21 TIME: 09:57 Subjective: Subjective: "You want the truth or not?" Nurse present - we eventually established that he is tolerating regular diet w/o n/v and is stooling without issue. Objective: Objective: Reviewed nursing notes - pt uncooperative overnight. Noted on the board his preferred name is "Pimp [employer]ice." Vital Signs: Vital Signs Date Time Temp Pulse Resp B/P (MAP) Pulse Ox O2 Delivery O2 Flow Rate FiO2 07/22/21 09:04 91 157/89 07/22/21 07:00 97.4 17 94 Room Air 97.4 Labs: Laboratory Tests Test 07/21/21 13:02 07/21/21 16:57 07/21/21 19:49 07/21/21 21:10 Glucose (Fingerstick) 123 mg/dL 183 mg/dL 181 mg/dL 176 mg/dL Test 07/22/21 08:45 Glucose (Fingerstick) 201 mg/dL PE: GEN: NAD LUNGS: CTAB HEART: RRR ABD: S/ND/NT NEURO/PSYCH: odd behavior A/P: COVID PCR positive, ESRD, A Fib, encephalopathy Vomiting, constipation - resolved FABRICIO/ACD -- Uncooperative with staff. Improved from GI standpoint. Continue Miralax and PPI. Consider outpt scopes. DC per primary. Justicifation of Admission Dx: Justifications for Admission: Justification of Admission Dx: N/A ZARA BALBUENA Jul 22, 2021 10:03
--- NOTE | 2021-07-22 10:48 | PDOC ---
Renal-Progress Notes Subjective Notes Notes CONFUSED, UNCOOPERATIVE History of Present Illness Hx of present illness ANGRY WITH HIS SITUATION Vitals Vitals Vital Signs Date Time Temp Pulse Resp B/P (MAP) Pulse Ox O2 Delivery O2 Flow Rate FiO2 07/22/21 09:04 91 157/89 07/22/21 07:00 97.4 17 94 Room Air 97.4 Weight Weight [ ] I.O. Intake and Output Intake and Output 07/22/21 07:00 Intake Total 1030 ml Output Total 15 ml Balance 1015 ml Intake Oral 830 ml IV Total 200 ml Output Urine Total 15 ml # Bowel Movements 5 Labs Labs Laboratory Tests Test 07/21/21 13:02 07/21/21 16:57 07/21/21 19:49 07/21/21 21:10 Glucose (Fingerstick) 123 mg/dL (70-99) 183 mg/dL (70-99) 181 mg/dL (70-99) 176 mg/dL (70-99) Test 07/22/21 08:45 Glucose (Fingerstick) 201 mg/dL (70-99) Micro Micro Microbiology 07/18/21 Blood Culture - Preliminary, Resulted NO GROWTH AFTER 3 DAYS 07/17/21 Urine Culture - Final, Complete Staphylococcus Simulans Staphylococcus Simulans#2 Corynebacter Jeikeium (Grp Jk) Review of Systems Constitutional: yes: alert Ears/Nose/Throat: Yes: no symptom reported Eyes: Yes: no symptom reported Pulmonary: Yes no symptom reported Cardiovascular: Yes no symptom reported Gastrointestional: Yes: no symptom reported Genitourinary: Yes: no symptom reported Musculoskeletal: Yes: no symptom reported Skin: Yes no symptom reported Psychiatric/Neurological: Yes: no symptom reported Endocrine: Yes: no symptom reported Physical Exam General Appearance: no apparent distress Skin: warm Respiratory: decreased breath sounds Heart: S1S2 Abdomen: soft, bowel sounds present Genitourinary: bladder flat Extremities: pulses present Neurology: alert, oriented, follow commands Assessment Assessment IMP [id number] IJ TDC ANEMIA OF ESRD BRADYCARDIA HYPOTENSION-RESOLVED FLUID OVERLOAD HYPOGLYCEMIA LEUCOCYTOSIS DM II UTI COVID 19 POS LEFT BKA WOUND-HEALING PLAN ANTIBIOTICS CARDIOLOGY EVAL VINNIE WHEN NEEDED HD TOMORROW WILL FOLLOW NUBIA PATTON MD Jul 22, 2021 10:48
[2021-07-22 11:00] VITALS: BP 162/103
--- NOTE | 2021-07-22 12:57 | PDOC ---
TEJAL GUO MEDICAL BILLER/CODER 07/22/21 1257: CARDIO Progress Notes Date and Time Date of Service 07/22/2021 Time of Evaluation 1240 Subjective Subjective: No Chest Pain, No shortness of breath, No Palpitations Vitals Vitals Vital Signs Date Time Temp Pulse Resp B/P (MAP) Pulse Ox O2 Delivery O2 Flow Rate FiO2 07/22/21 11:00 97.5 90 12 162/103 (122) 95 Room Air 97.5 Weight Weight [ ] Input and Output Intake and Output Intake and Output 07/22/21 07:00 Intake Total 1030 ml Output Total 15 ml Balance 1015 ml Intake Oral 830 ml IV Total 200 ml Output Urine Total 15 ml # Bowel Movements 5 Laboratory Labs Laboratory Tests Test 07/21/21 13:02 07/21/21 16:57 07/21/21 19:49 07/21/21 21:10 Glucose (Fingerstick) 123 mg/dL (70-99) 183 mg/dL (70-99) 181 mg/dL (70-99) 176 mg/dL (70-99) Test 07/22/21 08:45 07/22/21 11:51 Glucose (Fingerstick) 201 mg/dL (70-99) 237 mg/dL (70-99) Microbiology Micro Microbiology 07/18/21 Blood Culture - Preliminary, Resulted NO GROWTH AFTER 4 DAYS 07/17/21 Urine Culture - Final, Complete Staphylococcus Simulans Staphylococcus Simulans#2 Corynebacter Jeikeium (Grp Jk) Review of Systems Constitutional: yes: alert Ears/Nose/Throat: Yes: no symptom reported Eyes: Yes: no symptom reported Pulmonary: Yes no symptom reported Cardiovascular: Yes no symptom reported Gastrointestional: Yes: no symptom reported Genitourinary: Yes: no symptom reported Musculoskeletal: Yes: no symptom reported Skin: Yes no symptom reported Psychiatric/Neurological: Yes: no symptom reported Endocrine: Yes: no symptom reported Physical Exam HEENT: Neck Supple W Full Motion Chest: Symmetric LUNGS: Other (diminished bases) Heart: irregularly irregular (atrial flutter) Abdomen: Soft N/T Extremities: No Edema, Other (left BKA ) Neurology: alert, oriented, follow commands Assessment Assessment 1. PAF presenting with atrial flutter with slow VR. BB held. Improved, off dopamine infusion. No significant pauses noted on telemetry. No clear indication for permanent pacemaker implantation at this time. Rate controlled, no further nataly episodes 2. Acute metabolic encephalopathy: resolved 3. ESRD on HD 4. Seizure disorder: on Keppra. Neurology following 5. CAD: s/p CABG. clinically stable and chest pain-free. 6. HTN; labile 7. DM2: Treat per IM 8. S/P LBKA 9. Ischemic cardiomyopathy, chronic systolic heart failure LV EF 30-35%, clinically well compensated 10. Mild to moderate , moderate to severe TR. Estimated PAP 60 mmHg on recent 2D echo. 11. PAD: Recent abdominal aortogram revealed no significant aortoiliac disease bilaterally and moderate diffuse 50 to 60% stenosis involving the SFA with one- vessel runoff bilaterally. 12. Acute cystitis: Per IM Recommendations was on toprol XL 50 mg daily. Will consider restart at a lower dose. Restart home norvasc and increase Patient is a poor candidate for long-term anticoagulation secondary to anemia and subdural hematoma in the past. Continue aspirin for stroke prophylaxis. Continue current secondary prevention measures. Fluid offloading via HD. Pending SNU, will place MCOT prior to DC to ascertain any further bradyarr hythmias. Justicifation of Admission Dx: Justifications for Admission: Justification of Admission Dx: N/A CARRIE MCCLAIN MD 07/22/21 1427: CARDIO Progress Notes Plan Plan The patient was seen and interviewed as well as examined at the bedside. The chart was reviewed. The case was discussed. Agree with the plan of care. TEJAL GUO APRN Jul 22, 2021 12:57 CARRIE MCCLAIN MD Jul 22, 2021 14:27
--- NOTE | 2021-07-22 14:57 | NUR ---
SS following up with discharge planning. SS reviewed pt chart and discussed with pt RN. Pt is currently on room air. Discharge orders received for home. Pt's family requesting home healthcare services. Dr. Valle notified. Discharge orders received for home healthcare. Discharge orders and referral sent to [facility], ; fax [phone]. Family providing transportation to home. Pt's RN notified.
--- NOTE | 2021-07-22 18:17 | NUR ---
Nurse's note: Pt's sister notified this nurse at 1730 that the patient needs new refill of all his meds since they got disposed. According to her, she thought that the patient is not going home so they donated the meds earlier this morning to the hospice nurses.The patient's mother was under hospice service at home, but she today. All pt care materials where removed from their house. Called Dr. Valle about the situation, and the pt was advised to stay in the hospital. The plan is to have dialysis then coordinate everything from his dialysis schedule in [facility], home health, and his meds. Pt refused despite discussing with him the consequences of his decision. Pt's sister and brother who are present tried to convince him in staying but to no avail.
--- NOTE | 2021-07-22 18:44 | NUR ---
Discharge Note: FER CHAUDHARY Discharge instructions and discharge home medications reviewed with the patient and the patient's brother; and a copy given. All questions have been answered and understanding verbalized. The following instructions and handouts were given: Insulin sliding scale; printed instructions and given to the pt's brother Augmentin BID x 7days Home meds as directed Resume dialysis as scheduled (MWF) environmental monitoring specialist placed; instructions given. To follow up at Dr. Lowery's clinic in 2 weeks Discontinued lines and drains: IV intact, no complications Patient discharged to home with Bladimir TAYLOR via wheelchair at 1830
--- NOTE | 2021-07-28 15:29 | DS ---
DATE OF DISCHARGE: 07/22/2021 HOSPITAL COURSE: The patient is a 55-year-old male patient who was admitted yet again as he was brought to the Emergency Room of the [facility] with altered mental status. He is known to have multitude of medical problems and has had a prolonged stay in [facility] where he underwent left below-knee amputation and was discharged to [facility] and from there, he was sent home with home health; however, apparently his sister was unable to take care of him and she brought him to the Emergency Room. He missed his dialysis day before admission because no Joi lift was available to mobilize him at the dialysis center. His family reported he was at his baseline until around breakfast time when he was noted to be less responsive than usual. Sister reports that he seemed intermittently more confused, which she states are typical of his absence type of seizure that he has; therefore, she called EMS to transport him to the hospital. Upon initial evaluation in the Emergency Room, he was somnolent, but arousable and was able to follow commands with both hands. He was bradycardic with heart rate of around 40 and hypotensive with a blood pressure of 80/40; however, he was oxygenating well on approximately 2 liters by nasal cannula. He was afebrile. His rhythm on the monitor showed he was in atrial fibrillation. He was very lethargic and did not provide any history. He was extensively evaluated in the Emergency Room and has had lab work as well as imaging studies. His lab work showed that his white cell count was normal with normochromic normocytic anemia and his chemistry also showed that he was hypoglycemic with a blood sugar of 45. His procalcitonin was slightly high at 0.28. He is known to have end-stage renal disease, on hemodialysis, however, his potassium was only 4.4. His blood gases showed a pH of 7.31, pCO2 of 43 and pO2 of 102, bicarbonate of 21, oxygen saturation was 96% on 2 liters of oxygen. His prothrombin time and INR were elevated, APTT was normal. Urinalysis showed that urine was yellow, turbid with a pH of 6.5, specific gravity 1.025. There was large amount of protein. The urine was negative for glucose, ketones. There was large amount of blood, large amount of leukocyte esterase, too numerous to count wbc's. His toxic screen was essentially negative. His coronavirus by rapid testing was negative. His CT scan of the head showed the patient has no evidence of acute intracranial abnormality and chronic infarcts are again seen. He has left occipital infarct. His chest x-ray showed his dual lumen central venous catheter terminates in the superior vena cava, superior cavoatrial junction, median sternotomy wires, similar prominence of the cardiomediastinal silhouette also present previously are increased interstitial marking and hazy attenuation in both lungs. The patient was admitted and was seen in consultation by the Cardiology team and was started on dopamine for hypotension and bradycardia. His beta blockers were put on hold. We did start him on IV antibiotic as there is suspicion that he might have aspiration pneumonia and was seen in consultation by the Nephrology team to continue on hemodialysis. He did well and has remained hemodynamically stable. Unfortunately, his mother at home and his sister came to take him home with home health. Unfortunately, for some reason they donated all his medication to the hospice agency and after I left [facility] and was busy at [facility], they called me late in the evening stating that the patient wants Joi lift and he has no medications whatsoever at home. My recommendation was for him to wait until next day, so that I can call the pharmacy with all his medication and to write a prescription for a Joi lift. Unfortunately when I came next day, the patient has already left. On the day he was discharged, the only medication, a handwritten prescription was his insulin sliding scale and NovoLog insulin as well as Augmentin 500/125 one tablet once a day for 7 more days for his aspiration pneumonia and he was advised to resume dialysis as scheduled Monday, Monday, Monday. FINAL DISCHARGE DIAGNOSES: 1. Altered mental status, likely due to hyperglycemia, resolved. He is now more awake, alert, although continued to be confused at times. 2. Recurrent bouts of nausea, vomiting and aspiration pneumonia with marked leukocytosis for which he was started on IV vancomycin and Zosyn. His vancomycin was discontinued and I have written a prescription for Augmentin 500/125 one tablet once a day for 7 days. 3. Seizure disorder for which he is on Keppra. 4. The patient has multiple other medical problems including: A. End-stage renal disease, on hemodialysis Monday, Monday, Monday. B. Insulin-dependent type 1 diabetes mellitus. C. Atrial fibrillation, rate controlled, not anticoagulated. D. Coronary artery disease status post coronary artery bypass graft surgery. E. Hypertension. F. Cerebrovascular accident with left occipital infarcts and bilateral basal ganglia infarct. G. Peripheral neuropathy. H. Seizure disorder. I. Peripheral vascular disease, status post left below-knee amputation. J. Anemia of chronic kidney disease. CHERYL/DYAN/LEELEE DR: Tyler TID: [id number]
== END 2021-07-22 18:30 | disposition home health service (06) | DRG 177 ==
LOC: ER 13:09 → 1 WEST ICU 15:50 → 5 NORTH 07-20 18:40
PROVIDERS: ADMIT Internal Medicine; ATTEND Internal Medicine
PROC: 5A1D70Z Performance of Urinary Filtration, Intermittent, Less than 6 Hours Per Day (ICD-10-PCS; 2021-07-17)
PROC: 5A1D70Z Performance of Urinary Filtration, Intermittent, Less than 6 Hours Per Day (ICD-10-PCS; 2021-07-19)
PROC: 5A1D70Z Performance of Urinary Filtration, Intermittent, Less than 6 Hours Per Day (ICD-10-PCS; principal; 2021-07-21)
DX: J69.0 Pneumonitis due to inhalation of food and vomit (principal); G93.41 Metabolic encephalopathy; U07.1 COVID-19; N18.6 End stage renal disease; I13.2 Hypertensive heart and chronic kidney disease with heart failure and with stage 5 chronic kidney disease, or end stage renal disease; I48.92 Unspecified atrial flutter; R18.8 Other ascites; N30.01 Acute cystitis with hematuria; I50.22 Chronic systolic (congestive) heart failure; E10.649 Type 1 diabetes mellitus with hypoglycemia without coma; D63.1 Anemia in chronic kidney disease; E10.22 Type 1 diabetes mellitus with diabetic chronic kidney disease; E10.42 Type 1 diabetes mellitus with diabetic polyneuropathy; E10.51 Type 1 diabetes mellitus with diabetic peripheral angiopathy without gangrene; E10.65 Type 1 diabetes mellitus with hyperglycemia; E78.5 Hyperlipidemia, unspecified; F17.200 Nicotine dependence, unspecified, uncomplicated; G40.909 Epilepsy, unspecified, not intractable, without status epilepticus; G93.89 Other specified disorders of brain; I07.1 Rheumatic tricuspid insufficiency; I25.10 Atherosclerotic heart disease of native coronary artery without angina pectoris; I25.5 Ischemic cardiomyopathy; I48.0 Paroxysmal atrial fibrillation; I49.5 Sick sinus syndrome; J44.9 Chronic obstructive pulmonary disease, unspecified; K31.89 Other diseases of stomach and duodenum; K59.00 Constipation, unspecified; N40.0 Benign prostatic hyperplasia without lower urinary tract symptoms; Z79.4 Long term (current) use of insulin; Z82.3 Family history of stroke; Z86.73 Personal history of transient ischemic attack (TIA), and cerebral infarction without residual deficits; Z87.442 Personal history of urinary calculi; Z89.512 Acquired absence of left leg below knee; Z95.1 Presence of aortocoronary bypass graft; Z95.5 Presence of coronary angioplasty implant and graft; Z99.2 Dependence on renal dialysis; F32.A Depression, unspecified; G43.909 Migraine, unspecified, not intractable, without status migrainosus; K21.9 Gastro-esophageal reflux disease without esophagitis; I25.2 Old myocardial infarction
CPT/HCPCS: 36415; 36600; 70450; 71045; 74018; 74176; 80048; 80053; 80202; 80307; 80329; 81001; 82140; 82805; 82962; 83540; 83550; 83605; 83615; 83690; 83735; 84145; 84484; 85007; 85025; 85027; 85610; 85730; 87040; 87077; 87086; 87426; 93005; 96365; 96366; 96368; 96375; 99292; C9113; G0480; J0171; J0461; J0610; J1265; J1644; J1815; J2405; J2543; J3370; J7040; J7050; J7120; U0003; 92526-GN; 92610-GN; 97116-GP; 97530-GO; 97530-GP; 97535-GO; 99291-25; G0378; J7030

== ENCOUNTER 2021-07-23 18:38 | Emergency (ER) | payer MEDICARE ==
[~2021-07-23] VITALS: Ht 182.9 cm; Wt 94.5 kg
[~2021-07-23 18:38] MED LIST changes: +LACT100C2 PO; +MUPI15CR8 TP; +PANT40TA77 PO; +QUET25TA5 PO
[2021-07-23 19:02] VITALS: BP 216/106
== END 2021-07-23 20:07 | disposition left against medical advice (07) ==
LOC: ER 18:38
DX: R56.9 Unspecified convulsions (principal); Z53.21 Procedure and treatment not carried out due to patient leaving prior to being seen by health care provider